=== PATIENT | female | born 1975 | race Two or more races ===

== ENCOUNTER → 2017-07-20 | Outpatient (CLI) | payer MEDICARE, BC ==
[2017-07-20 13:30] LABS: BASO % 0.7 % (0.0-1.0); EOS # 0.1 10^3/uL (0.0-0.50); EOS % 1.6 % (0.0-3.0); IMMATURE GRANULOCYTE % 0.2 % (0-0); LYMPH # 1.7 10^3/uL (1.5-4.5); LYMPH % 30.2 % (24.0-44.0); MEAN CORPUSCULAR HEMOGLOBIN 26.7 pg (27.0-33.0); MEAN CORPUSCULAR VOLUME 85.8 fl (80.0-96.0); MONO # 0.3 10^3/uL (0.0-0.8); MONO % 5.7 % (0.0-5.0); NEUTROPHILS # 3.4 10^3/uL (1.8-7.7); NEUTROPHILS % 61.6 % (36.0-66.0); PLATELET COUNT, AUTOMATED 236 10^3/uL (150-450); RED CELL DISTRIBUTION WIDTH 16.2 % (11.5-14.5); WHITE BLOOD COUNT 5.6 10^3/uL (4.0-10.0)
[2017-07-20 13:56] LABS: ALBUMIN 4.1 GM/DL (3.2-5.2); ALBUMIN/GLOBULIN RATIO 1.37 (1.00-1.93); ALKALINE PHOSPHATASE 72 U/L (45-117); ALT/SGPT 14 U/L (12-78); ANION GAP 8 MEQ/L (8-16); AST/SGOT 11 U/L (7-37); BILIRUBIN,TOTAL 0.3 MG/DL (0.2-1.0); BLOOD UREA NITROGEN 16 MG/DL (7-18); CALCIUM LEVEL 8.2 MG/DL (8.5-10.1); CARBON DIOXIDE LEVEL 23 MEQ/L (21-32); CHLORIDE LEVEL 118 MEQ/L (98-107); CHOLESTEROL LEVEL 189 MG/DL (<200); CREATININE FOR GFR 0.96 MG/DL (0.55-1.02); GLOMERULAR FILTRATION RATE > 60.0 (>58); GLUCOSE, FASTING 107 MG/DL (70-105); POTASSIUM SERUM 3.7 MEQ/L (3.5-5.1); SODIUM LEVEL 149 MEQ/L (136-145); TOTAL PROTEIN 7.1 GM/DL (6.4-8.2); TRIGLYCERIDES LEVEL 114 MG/DL (<150)
== END ==
LOC: M LAB 12:43
DX: Z86.2 Personal history of diseases of the blood and blood-forming organs and certain disorders involving the immune mechanism (principal); E78.00 Pure hypercholesterolemia, unspecified
CPT/HCPCS: 73010

== ENCOUNTER → 2017-08-01 | Outpatient (CLI) | payer MEDICARE, BC ==
[2017-08-01 13:33] LABS: HEMATOCRIT 36.5 % (36.0-47.0); HEMOGLOBIN 11.4 g/dl (12.0-16.0); MEAN CORPUSCULAR HGB CONC 31.2 g/dl (32.0-36.5); MEAN CORPUSCULAR VOLUME 86.5 fl (80.0-96.0); PLATELET COUNT, AUTOMATED 201 10^3/uL (150-450); RED BLOOD COUNT 4.22 10^6/uL (4.00-5.40); RED CELL DISTRIBUTION WIDTH 16.1 % (11.5-14.5); WHITE BLOOD COUNT 6.8 10^3/uL (4.0-10.0)
[2017-08-01 13:39] LABS: RETIC HEMOGLOBIN EQUIVALENT 34.7 pg (24-36); RETICULOCYTE # 64.9 10^9/L (17-77); RETICULOCYTE % 1.6 % (0.5-1.5)
[2017-08-01 14:33] LABS: CALCIUM LEVEL 8.5 MG/DL (8.5-10.1); FERRITIN 18 NG/ML (8-252); IRON (FE) 34 UG/DL (50-170); MAGNESIUM LEVEL 2.3 MG/DL (1.8-2.4); PERCENT SATURATION 10.1 % (13.2-45.0); PHOSPHORUS LEVEL 3.9 MG/DL (2.5-4.9); TOTAL IRON BINDING CAPACITY 338 UG/DL (250-450)
[2017-08-02 08:07] LABS: TRANSFERRIN 261 mg/dL (200-370)
== END ==
LOC: M LAB 12:58
DX: E61.1 Iron deficiency (principal)
CPT/HCPCS: 82310

== ENCOUNTER → 2017-08-31 | Outpatient (CLI) | payer MEDICARE, BC | LOC: M PAIN 13:15 | DX: G89.29 Other chronic pain (principal); M54.5 Low back pain; M79.1 Myalgia; K21.9 Gastro-esophageal reflux disease without esophagitis; J44.9 Chronic obstructive pulmonary disease, unspecified; G43.909 Migraine, unspecified, not intractable, without status migrainosus; Z79.899 Other long term (current) drug therapy; Z88.5 Allergy status to narcotic agent; Z88.8 Allergy status to other drugs, medicaments and biological substances | CPT/HCPCS: G0463 ==

== ENCOUNTER → 2017-09-05 | Outpatient (CLI) | payer MEDICARE, BC ==
[~2017-09-05] MED LIST: BUPIVACAINE HCL 0.25% 30 ML VIAL As Ordered; ISOVUE-M 300 61% 15ML VIAL (Q9967) As Ordered; LIDOCAINE 1% SDV INJ 30 ML VIAL As Ordered; ONDANSETRON 4 MG ORAL DISINTEGRATING TAB (S0181) As Ordered; TRIAMCINOLONE ACETONIDE SUSP 40 MG/ML VIAL (J3301) As Ordered; diazePAM 5 MG TAB As Ordered; diphenhydrAMINE 25 MG CAP As Ordered; oxyCODONE 5MG TAB As Ordered
== END ==
LOC: M PAIN 12:45
DX: M46.08 Spinal enthesopathy, sacral and sacrococcygeal region (principal); M51.37 Other intervertebral disc degeneration, lumbosacral region; M54.5 Low back pain; K21.9 Gastro-esophageal reflux disease without esophagitis; J44.9 Chronic obstructive pulmonary disease, unspecified; G43.909 Migraine, unspecified, not intractable, without status migrainosus; Z79.899 Other long term (current) drug therapy; Z88.5 Allergy status to narcotic agent; Z88.8 Allergy status to other drugs, medicaments and biological substances
CPT/HCPCS: J3301

== ENCOUNTER → 2017-09-06 | Outpatient (CLI) | payer MEDICARE, BC | LOC: M SLEEP 19:54 | DX: R40.0 Somnolence (principal); R06.83 Snoring | CPT/HCPCS: 95810 ==

== ENCOUNTER → 2017-09-14 | Outpatient (REF) | payer MEDICARE, BC ==
[2017-09-14 13:21] LABS: CREATININE FOR GFR 0.93 MG/DL (0.55-1.30); GLOMERULAR FILTRATION RATE > 60.0 (>58)
[2017-09-14 13:21] LABS: BLOOD UREA NITROGEN 14 MG/DL (7-18)
== END ==
LOC: M LABNEURO 09:47
DX: G43.909 Migraine, unspecified, not intractable, without status migrainosus (principal)
CPT/HCPCS: 82565

== ENCOUNTER → 2017-09-26 | Outpatient (CLI) | payer MEDICARE, BC | LOC: M PAIN 14:50 | DX: M46.08 Spinal enthesopathy, sacral and sacrococcygeal region (principal); M51.26 Other intervertebral disc displacement, lumbar region; M79.1 Myalgia; K21.9 Gastro-esophageal reflux disease without esophagitis; J44.9 Chronic obstructive pulmonary disease, unspecified; Z79.899 Other long term (current) drug therapy; Z88.8 Allergy status to other drugs, medicaments and biological substances | CPT/HCPCS: G0463 ==

== ENCOUNTER → 2017-10-10 | Outpatient (CLI) | payer MEDICARE, BC ==
[~2017-10-10] MED LIST changes: -ONDANSETRON 4 MG ORAL DISINTEGRATING TAB (S0181) As Ordered; -diphenhydrAMINE 25 MG CAP As Ordered
== END ==
LOC: M PAIN 11:00
DX: G89.29 Other chronic pain (principal); M46.1 Sacroiliitis, not elsewhere classified; E55.9 Vitamin D deficiency, unspecified; K59.00 Constipation, unspecified; G43.909 Migraine, unspecified, not intractable, without status migrainosus; Z79.891 Long term (current) use of opiate analgesic; Z79.899 Other long term (current) drug therapy; Z88.8 Allergy status to other drugs, medicaments and biological substances
CPT/HCPCS: J3301

== ENCOUNTER → 2017-10-22 | Outpatient (REF) | payer MEDICARE, BC | LOC: M SFHCPLAZ 11:32 | DX: J06.9 Acute upper respiratory infection, unspecified (principal) | CPT/HCPCS: 87070 ==

== ENCOUNTER → 2017-10-24 | Outpatient (CLI) | payer MEDICARE, BC | LOC: M PAIN 14:45 | DX: M46.08 Spinal enthesopathy, sacral and sacrococcygeal region (principal); M51.26 Other intervertebral disc displacement, lumbar region; M79.1 Myalgia; K21.9 Gastro-esophageal reflux disease without esophagitis; J44.9 Chronic obstructive pulmonary disease, unspecified; G43.909 Migraine, unspecified, not intractable, without status migrainosus; E66.09 Other obesity due to excess calories; Z68.32 Body mass index [BMI] 32.0-32.9, adult; Z79.899 Other long term (current) drug therapy; Z88.5 Allergy status to narcotic agent; Z88.8 Allergy status to other drugs, medicaments and biological substances | CPT/HCPCS: 82375; G0463 ==

== ENCOUNTER → 2017-11-13 | Outpatient (CLI) | payer MEDICARE, BC | LOC: M PAIN 11:00 | DX: G89.29 Other chronic pain (principal); M47.816 Spondylosis without myelopathy or radiculopathy, lumbar region; M47.817 Spondylosis without myelopathy or radiculopathy, lumbosacral region; K21.9 Gastro-esophageal reflux disease without esophagitis; J44.9 Chronic obstructive pulmonary disease, unspecified; G43.709 Chronic migraine without aura, not intractable, without status migrainosus; E66.9 Obesity, unspecified; Z68.32 Body mass index [BMI] 32.0-32.9, adult; Z79.891 Long term (current) use of opiate analgesic; Z79.899 Other long term (current) drug therapy; Z88.5 Allergy status to narcotic agent; Z88.6 Allergy status to analgesic agent; Z88.8 Allergy status to other drugs, medicaments and biological substances | CPT/HCPCS: J3301 ==

== ENCOUNTER → 2017-11-21 | Outpatient (CLI) | payer MEDICARE, BC | LOC: M PAIN 14:30 | DX: M46.92 Unspecified inflammatory spondylopathy, cervical region (principal); M46.08 Spinal enthesopathy, sacral and sacrococcygeal region; M46.96 Unspecified inflammatory spondylopathy, lumbar region; K21.9 Gastro-esophageal reflux disease without esophagitis; G43.909 Migraine, unspecified, not intractable, without status migrainosus; E66.01 Morbid (severe) obesity due to excess calories; Z68.32 Body mass index [BMI] 32.0-32.9, adult; Z79.891 Long term (current) use of opiate analgesic; Z79.899 Other long term (current) drug therapy; Z88.5 Allergy status to narcotic agent; Z88.8 Allergy status to other drugs, medicaments and biological substances | CPT/HCPCS: G0463 ==

== ENCOUNTER → 2017-11-29 | Outpatient (CLI) | payer MEDICARE, BC | LOC: M PAIN 08:45 | DX: G89.29 Other chronic pain (principal); M47.812 Spondylosis without myelopathy or radiculopathy, cervical region; K21.9 Gastro-esophageal reflux disease without esophagitis; G43.909 Migraine, unspecified, not intractable, without status migrainosus; M19.90 Unspecified osteoarthritis, unspecified site; E66.09 Other obesity due to excess calories; Z68.32 Body mass index [BMI] 32.0-32.9, adult; Z79.891 Long term (current) use of opiate analgesic; Z79.899 Other long term (current) drug therapy; Z88.5 Allergy status to narcotic agent; Z88.8 Allergy status to other drugs, medicaments and biological substances | CPT/HCPCS: J3301 ==

== ENCOUNTER → 2017-12-20 | Outpatient (CLI) | payer MEDICARE, BC | LOC: M PAIN 09:15 | DX: M46.92 Unspecified inflammatory spondylopathy, cervical region (principal); M46.08 Spinal enthesopathy, sacral and sacrococcygeal region; M46.96 Unspecified inflammatory spondylopathy, lumbar region; M54.81 Occipital neuralgia; K21.9 Gastro-esophageal reflux disease without esophagitis; G43.909 Migraine, unspecified, not intractable, without status migrainosus; J44.9 Chronic obstructive pulmonary disease, unspecified; E66.09 Other obesity due to excess calories; Z68.33 Body mass index [BMI] 33.0-33.9, adult; Z79.891 Long term (current) use of opiate analgesic; Z79.899 Other long term (current) drug therapy; Z88.5 Allergy status to narcotic agent; Z88.8 Allergy status to other drugs, medicaments and biological substances | CPT/HCPCS: G0463 ==

== ENCOUNTER → 2017-12-26 | Outpatient (CLI) | payer MEDICARE, BC ==
[~2017-12-26] MED LIST changes: +BUPIVACAINE HCL 0.25% 10 ML VIAL As Ordered; -ISOVUE-M 300 61% 15ML VIAL (Q9967) As Ordered; -LIDOCAINE 1% SDV INJ 30 ML VIAL As Ordered
== END ==
LOC: M PAIN 09:00
DX: G89.29 Other chronic pain (principal); M54.81 Occipital neuralgia; M54.2 Cervicalgia; M79.1 Myalgia; K21.9 Gastro-esophageal reflux disease without esophagitis; G43.909 Migraine, unspecified, not intractable, without status migrainosus; E66.01 Morbid (severe) obesity due to excess calories; Z68.33 Body mass index [BMI] 33.0-33.9, adult; Z79.891 Long term (current) use of opiate analgesic; Z79.899 Other long term (current) drug therapy; Z88.6 Allergy status to analgesic agent; Z88.5 Allergy status to narcotic agent; Z88.8 Allergy status to other drugs, medicaments and biological substances
CPT/HCPCS: J3301

== ENCOUNTER → 2018-01-25 | Outpatient (CLI) | payer MEDICARE, BC | LOC: M PAIN 12:30 | DX: G89.29 Other chronic pain (principal); M79.1 Myalgia; M54.2 Cervicalgia; M25.511 Pain in right shoulder; M25.512 Pain in left shoulder; M54.6 Pain in thoracic spine; M54.5 Low back pain; M53.3 Sacrococcygeal disorders, not elsewhere classified; K21.9 Gastro-esophageal reflux disease without esophagitis; J44.9 Chronic obstructive pulmonary disease, unspecified; G43.909 Migraine, unspecified, not intractable, without status migrainosus; E66.9 Obesity, unspecified; Z68.33 Body mass index [BMI] 33.0-33.9, adult; Z79.891 Long term (current) use of opiate analgesic; Z79.899 Other long term (current) drug therapy; Z88.5 Allergy status to narcotic agent; Z88.8 Allergy status to other drugs, medicaments and biological substances | CPT/HCPCS: J3301 ==

== ENCOUNTER → 2018-01-29 | Outpatient (CLI) | payer MEDICARE, BC ==
[~2018-01-29] MED LIST changes: -BUPIVACAINE HCL 0.25% 10 ML VIAL As Ordered; +ISOVUE-M 300 61% 15ML VIAL (Q9967) As Ordered; +LIDOCAINE 1% SDV INJ 30 ML VIAL As Ordered; +ONDANSETRON 4 MG ORAL DISINTEGRATING TAB (Q0162 PER 1MG) As Ordered; +diphenhydrAMINE 25 MG CAP As Ordered
== END ==
LOC: M PAIN 12:45
DX: G89.29 Other chronic pain (principal); M53.3 Sacrococcygeal disorders, not elsewhere classified; M47.816 Spondylosis without myelopathy or radiculopathy, lumbar region; M46.08 Spinal enthesopathy, sacral and sacrococcygeal region; M46.96 Unspecified inflammatory spondylopathy, lumbar region; K21.9 Gastro-esophageal reflux disease without esophagitis; J44.9 Chronic obstructive pulmonary disease, unspecified; G43.909 Migraine, unspecified, not intractable, without status migrainosus; E66.9 Obesity, unspecified; Z68.34 Body mass index [BMI] 34.0-34.9, adult; Z79.891 Long term (current) use of opiate analgesic; Z79.899 Other long term (current) drug therapy; Z88.5 Allergy status to narcotic agent; Z88.6 Allergy status to analgesic agent; Z88.8 Allergy status to other drugs, medicaments and biological substances
CPT/HCPCS: J3301

== ENCOUNTER → 2018-01-30 | Outpatient (CLI) | payer MEDICARE, BC | LOC: M PAIN 09:45 | DX: M79.1 Myalgia (principal); M53.3 Sacrococcygeal disorders, not elsewhere classified; M46.08 Spinal enthesopathy, sacral and sacrococcygeal region; M46.96 Unspecified inflammatory spondylopathy, lumbar region; K21.9 Gastro-esophageal reflux disease without esophagitis; G43.909 Migraine, unspecified, not intractable, without status migrainosus; E66.01 Morbid (severe) obesity due to excess calories; Z68.34 Body mass index [BMI] 34.0-34.9, adult; Z71.3 Dietary counseling and surveillance; Z79.891 Long term (current) use of opiate analgesic; E27.40 Unspecified adrenocortical insufficiency; Z79.899 Other long term (current) drug therapy; Z88.5 Allergy status to narcotic agent; E83.51 Hypocalcemia; Z88.6 Allergy status to analgesic agent; Z88.8 Allergy status to other drugs, medicaments and biological substances | CPT/HCPCS: G0463 ==

== ENCOUNTER → 2018-02-18 | Outpatient (CLI) | payer MEDICARE, BC ==
[2018-02-18 16:00] LABS: ANION GAP 8 MEQ/L (8-16); BLOOD UREA NITROGEN 12 MG/DL (7-18); CALCIUM LEVEL 8.2 MG/DL (8.5-10.1); CARBON DIOXIDE LEVEL 24 MEQ/L (21-32); CHLORIDE LEVEL 113 MEQ/L (98-107); CREATININE FOR GFR 0.87 MG/DL (0.55-1.30); GLOMERULAR FILTRATION RATE > 60.0 (>58); GLUCOSE, FASTING 99 MG/DL (70-100); POTASSIUM SERUM 3.8 MEQ/L (3.5-5.1); SODIUM LEVEL 145 MEQ/L (136-145)
== END ==
LOC: M LAB 15:00
DX: R79.9 Abnormal finding of blood chemistry, unspecified (principal)
CPT/HCPCS: 80048

== ENCOUNTER → 2018-03-04 | Outpatient (CLI) | payer MEDICARE, BC ==
[2018-03-04 19:30] LABS: BASO % 0.4 % (0.0-1.0); EOS % 0.5 % (0.0-3.0); HEMATOCRIT 42.2 % (36.0-47.0); HEMOGLOBIN 13.8 g/dl (12.0-15.5); IMMATURE GRANULOCYTE % 0.3 % (0-3.0); LYMPH # 1.9 10^3/uL (1.5-4.5); MEAN CORPUSCULAR HEMOGLOBIN 30.1 pg (27.0-33.0); MEAN CORPUSCULAR HGB CONC 32.7 g/dl (32.0-36.5); MEAN CORPUSCULAR VOLUME 92.1 fl (80.0-96.0); MONO # 0.5 10^3/uL (0.0-0.8); MONO % 7.3 % (0.0-5.0); NEUTROPHILS # 4.8 10^3/uL (1.8-7.7); NEUTROPHILS % 65.5 % (36.0-66.0); PLATELET COUNT, AUTOMATED 247 10^3/uL (150-450); RED BLOOD COUNT 4.58 10^6/uL (4.00-5.40); RED CELL DISTRIBUTION WIDTH 13.8 % (11.5-14.5); WHITE BLOOD COUNT 7.4 10^3/uL (4.0-10.0)
[2018-03-04 20:01] LABS: ALBUMIN 3.9 GM/DL (3.2-5.2); ALBUMIN/GLOBULIN RATIO 1.15 (1.00-1.93); ALKALINE PHOSPHATASE 79 U/L (45-117); ALT/SGPT 16 U/L (12-78); ANION GAP 10 MEQ/L (8-16); AST/SGOT 12 U/L (7-37); BILIRUBIN,TOTAL 0.3 MG/DL (0.2-1.0); BLOOD UREA NITROGEN 13 MG/DL (7-18); CALCIUM LEVEL 8.5 MG/DL (8.5-10.1); CARBON DIOXIDE LEVEL 24 MEQ/L (21-32); CHLORIDE LEVEL 112 MEQ/L (98-107); CREATININE FOR GFR 0.98 MG/DL (0.55-1.30); GLOMERULAR FILTRATION RATE > 60.0 (>58); GLUCOSE, FASTING 90 MG/DL (70-100); LIPASE 162 U/L (73-393); POTASSIUM SERUM 3.5 MEQ/L (3.5-5.1); SODIUM LEVEL 146 MEQ/L (136-145); TOTAL PROTEIN 7.3 GM/DL (6.4-8.2)
== END ==
LOC: M LAB 18:17
DX: M51.34 Other intervertebral disc degeneration, thoracic region (principal); R10.11 Right upper quadrant pain
CPT/HCPCS: 72072

== ENCOUNTER → 2018-03-07 | Outpatient (CLI) | payer MEDICARE, BC | LOC: M RAD 06:20 | DX: R10.11 Right upper quadrant pain (principal); K80.20 Calculus of gallbladder without cholecystitis without obstruction | CPT/HCPCS: 76705 ==

== ENCOUNTER → 2018-03-19 | Outpatient (CLI) | payer MEDICARE, BC | LOC: M PAIN 11:30 | DX: M79.1 Myalgia (principal); M53.3 Sacrococcygeal disorders, not elsewhere classified; M46.08 Spinal enthesopathy, sacral and sacrococcygeal region; M46.96 Unspecified inflammatory spondylopathy, lumbar region; K21.9 Gastro-esophageal reflux disease without esophagitis; J44.9 Chronic obstructive pulmonary disease, unspecified; G43.909 Migraine, unspecified, not intractable, without status migrainosus; Z79.891 Long term (current) use of opiate analgesic; Z79.899 Other long term (current) drug therapy; Z88.8 Allergy status to other drugs, medicaments and biological substances; Z88.5 Allergy status to narcotic agent | CPT/HCPCS: G0463 ==

== ENCOUNTER → 2018-03-28 | Outpatient (CLI) | payer MEDICARE, BC ==
[~2018-03-28] MED LIST changes: +BUPIVACAINE HCL 0.25% 10 ML VIAL As Ordered; -ISOVUE-M 300 61% 15ML VIAL (Q9967) As Ordered; -LIDOCAINE 1% SDV INJ 30 ML VIAL As Ordered; -ONDANSETRON 4 MG ORAL DISINTEGRATING TAB (Q0162 PER 1MG) As Ordered; -diphenhydrAMINE 25 MG CAP As Ordered
== END ==
LOC: M PAIN 09:15
DX: G89.29 Other chronic pain (principal); M79.1 Myalgia; E78.5 Hyperlipidemia, unspecified; K59.00 Constipation, unspecified; K21.9 Gastro-esophageal reflux disease without esophagitis; G43.909 Migraine, unspecified, not intractable, without status migrainosus; J44.9 Chronic obstructive pulmonary disease, unspecified; E55.9 Vitamin D deficiency, unspecified; Z79.891 Long term (current) use of opiate analgesic; Z79.899 Other long term (current) drug therapy; Z88.5 Allergy status to narcotic agent; Z88.8 Allergy status to other drugs, medicaments and biological substances
CPT/HCPCS: J3301

== ENCOUNTER → 2018-04-04 | Outpatient (CLI) | payer MEDICARE, BC | LOC: M RAD 09:19 | DX: R10.13 Epigastric pain (principal) | CPT/HCPCS: 78226 ==

== ENCOUNTER → 2018-04-06 | Outpatient (CLI) | payer MEDICARE, BC ==
[2018-04-06 09:18] LABS: ALBUMIN 3.4 GM/DL (3.2-5.2); ALBUMIN/GLOBULIN RATIO 1.21 (1.00-1.93); ALKALINE PHOSPHATASE 64 U/L (45-117); ALT/SGPT 14 U/L (12-78); ANION GAP 5 MEQ/L (8-16); AST/SGOT 6 U/L (7-37); BILIRUBIN,DIRECT < 0.1 MG/DL (0.0-0.2); BILIRUBIN,TOTAL 0.2 MG/DL (0.2-1.0); BLOOD UREA NITROGEN 18 MG/DL (7-18); CALCIUM LEVEL 8.5 MG/DL (8.5-10.1); CARBON DIOXIDE LEVEL 26 MEQ/L (21-32); CHLORIDE LEVEL 115 MEQ/L (98-107); CREATININE FOR GFR 0.81 MG/DL (0.55-1.30); GLOMERULAR FILTRATION RATE > 60.0 (>58); GLUCOSE, FASTING 104 MG/DL (70-100); POTASSIUM SERUM 4.1 MEQ/L (3.5-5.1); SODIUM LEVEL 146 MEQ/L (136-145); TOTAL PROTEIN 6.2 GM/DL (6.4-8.2)
[2018-04-08 10:55] LABS: HIV 1&2 SCREEN CENTAUR NEGATIVE (NEGATIVE)
[2018-04-09 08:06] LABS: ARSENIC 6 ug/L (2-23)
[2018-04-09 08:06] LABS: ADRENOCORTICOTROPHIC HORMONE 2.7 pg/mL (7.2-63.3)
[2018-04-10 00:06] LABS: ARSENIC BLOOD 9 ug/L (2-23); LEAD BLOOD None Detected ug/dL (0-4); MERCURY BLOOD None Detected ug/L (0.0-14.9)
== END ==
LOC: M LAB 08:10
DX: E27.40 Unspecified adrenocortical insufficiency (principal); R17 Unspecified jaundice
CPT/HCPCS: 82248

== ENCOUNTER → 2018-04-08 | Outpatient (CLI) | payer MEDICARE, BC ==
[~2018-04-08] MED LIST changes: -BUPIVACAINE HCL 0.25% 10 ML VIAL As Ordered; -BUPIVACAINE HCL 0.25% 30 ML VIAL As Ordered; +GASTROGRAFIN SOLUTION 30ML (Q9963) As Ordered; +ISOVUE-370 76% 100ML VIAL (Q9967) As Ordered; -TRIAMCINOLONE ACETONIDE SUSP 40 MG/ML VIAL (J3301) As Ordered; -diazePAM 5 MG TAB As Ordered; -oxyCODONE 5MG TAB As Ordered
== END ==
LOC: M RAD 14:17
DX: E27.40 Unspecified adrenocortical insufficiency (principal)
CPT/HCPCS: Q9963

== ENCOUNTER → 2018-04-19 | Outpatient (REF) | payer MEDICARE, BC | LOC: M SFHCPLAZ 11:52 | DX: Z01.419 Encounter for gynecological examination (general) (routine) without abnormal findings (principal) | CPT/HCPCS: G0123 ==

== ENCOUNTER → 2018-04-24 | Outpatient (CLI) | payer MEDICARE, BC ==
[2018-04-24 11:58] LABS: CORTISOL AM 1.7 UG/DL (4.3-22.4)
[2018-04-26 00:08] LABS: ADRENOCORTICOTROPHIC HORMONE 3.5 pg/mL (7.2-63.3)
== END ==
LOC: M LAB 10:02
DX: E27.40 Unspecified adrenocortical insufficiency (principal); Z12.31 Encounter for screening mammogram for malignant neoplasm of breast
CPT/HCPCS: 82533

== ENCOUNTER → 2018-04-24 | Outpatient (CLI) | payer MEDICARE, BC | LOC: M WHC 09:21 | DX: Z12.31 Encounter for screening mammogram for malignant neoplasm of breast (principal) ==

== ENCOUNTER 2018-04-25 06:28 | Outpatient (CLI) | payer MEDICARE ==
[2018-04-25] MEDS: COSYNTROPIN 0.25 MG/ML VIAL (J0834 PER 0.25MG) IV (07:14)
[2018-04-25 10:32] LABS: CORTISOL 30 MINUTES 13.3 UG/DL
[2018-04-25 10:33] LABS: CORTISOL BASELINE 2.4 UG/DL (4.3-22.4)
[2018-04-25 11:39] LABS: CORTISOL 60 MINUTES 16.9 UG/DL
== END 2018-04-25 10:00 | disposition home or self-care (01) ==
LOC: M INFU 06:28
DX: E27.40 Unspecified adrenocortical insufficiency (principal); Z88.8 Allergy status to other drugs, medicaments and biological substances; Z88.5 Allergy status to narcotic agent
CPT/HCPCS: 36415

== ENCOUNTER → 2018-04-29 | Outpatient (REF) | payer MEDICARE, BC | LOC: M SFHCPLAZ 11:01 | DX: K14.8 Other diseases of tongue (principal) | CPT/HCPCS: 87070 ==

== ENCOUNTER → 2018-05-08 | Outpatient (CLI) | payer MEDICARE ==
[2018-05-08 16:19] LABS: FREE T3 2.9 PG/ML (2.2-4.0); FREE T4 1.01 NG/DL (0.76-1.46)
[2018-05-08 16:22] LABS: FOLLICLE STIMULATING HORMONE 8.7 mIU/mL; LUTEINIZING HORMONE 5.5 mIU/mL
== END ==
LOC: M LAB 15:03
DX: E27.49 Other adrenocortical insufficiency (principal)
CPT/HCPCS: 83001

== ENCOUNTER → 2018-05-20 | Outpatient (CLI) | payer MEDICARE ==
[~2018-05-20] MED LIST changes: -GASTROGRAFIN SOLUTION 30ML (Q9963) As Ordered; -ISOVUE-370 76% 100ML VIAL (Q9967) As Ordered; +PROHANCE 279.3MG/ML 15ML VIAL (A9576) As Ordered; +PROHANCE 279.3MG/ML 5ML VIAL (A9576) As Ordered
== END ==
LOC: M RAD 17:12
DX: R91.8 Other nonspecific abnormal finding of lung field (principal); E27.49 Other adrenocortical insufficiency
CPT/HCPCS: A9576

== ENCOUNTER → 2018-05-22 | Outpatient (CLI) | payer MEDICARE, BC | LOC: M PAIN 13:00 | DX: M79.18 Myalgia, other site (principal); M53.3 Sacrococcygeal disorders, not elsewhere classified; M46.08 Spinal enthesopathy, sacral and sacrococcygeal region; M46.96 Unspecified inflammatory spondylopathy, lumbar region; K21.9 Gastro-esophageal reflux disease without esophagitis; J44.9 Chronic obstructive pulmonary disease, unspecified; G43.909 Migraine, unspecified, not intractable, without status migrainosus; E78.5 Hyperlipidemia, unspecified; G25.81 Restless legs syndrome; Z79.52 Long term (current) use of systemic steroids; Z79.891 Long term (current) use of opiate analgesic; Z79.899 Other long term (current) drug therapy; Z88.5 Allergy status to narcotic agent; Z88.6 Allergy status to analgesic agent; Z88.8 Allergy status to other drugs, medicaments and biological substances | CPT/HCPCS: G0463 ==

== ENCOUNTER 2018-07-02 13:39 | Outpatient (RCR) | payer MEDICARE | END 2018-07-22 | LOC: M PT 13:39 | PROVIDERS: ATTEND Orthopaedic Surgery | DX: Z98.890 Other specified postprocedural states (principal) | CPT/HCPCS: 97140; 97162; G8978; G8979 ==

== ENCOUNTER → 2018-07-26 | Outpatient (CLI) | payer MEDICARE ==
[2018-07-26 16:01] LABS: BASO % 0.4 % (0.0-1.0); EOS # 0.1 10^3/uL (0.0-0.50); EOS % 1.3 % (0.0-3.0); HEMATOCRIT 38.1 % (36.0-47.0); HEMOGLOBIN 12.2 g/dl (12.0-15.5); LYMPH # 2.2 10^3/uL (1.5-4.5); LYMPH % 41.8 % (24.0-44.0); MEAN CORPUSCULAR VOLUME 90.5 fl (80.0-96.0); MONO # 0.3 10^3/uL (0.0-0.8); MONO % 6.3 % (0.0-5.0); NEUTROPHILS # 2.6 10^3/uL (1.8-7.7); PLATELET COUNT, AUTOMATED 210 10^3/uL (150-450); RED BLOOD COUNT 4.21 10^6/uL (4.00-5.40); WHITE BLOOD COUNT 5.2 10^3/uL (4.0-10.0)
[2018-07-26 16:22] LABS: ALBUMIN 3.6 GM/DL (3.2-5.2); ALT/SGPT 13 U/L (12-78); BILIRUBIN,TOTAL 0.3 MG/DL (0.2-1.0); BLOOD UREA NITROGEN 21 MG/DL (7-18); CARBON DIOXIDE LEVEL 26 MEQ/L (21-32); CHLORIDE LEVEL 113 MEQ/L (98-107); CHOLESTEROL LEVEL 168 MG/DL (<200); CHOLESTEROL RISK RATIO 3.169 (<5); CREATININE FOR GFR 0.86 MG/DL (0.55-1.30); GLOMERULAR FILTRATION RATE > 60.0 (>58); GLUCOSE, FASTING 88 MG/DL (70-100); HDL CHOLESTEROL 53 MG/DL (>40); IRON (FE) 111 UG/DL (50-170); LDL CHOLESTEROL 96 MG/DL (<100); NON-HDL-C 115 MG/DL; POTASSIUM SERUM 3.9 MEQ/L (3.5-5.1); SODIUM LEVEL 146 MEQ/L (136-145); TOTAL PROTEIN 6.5 GM/DL (6.4-8.2); TRIGLYCERIDES LEVEL 93 MG/DL (<150)
[2018-07-26 16:30] LABS: TOTAL 25(OH) VITAMIN D 30.1 NG/ML (30.0-100.0)
--- NOTE | 2018-07-26 17:05 | REP ---
HISTORY: Pain and decreased range of motion. COMPARISON: None. There is mild AC joint DJD with hypertrophic change. The acromion process is a slight type 3. There is patchy and linear T2 hypersignal seen throughout the supraspinatus tendon, a portion of which appears to be full thickness. There is no bela evidence of supraspinatus muscle belly atrophy or retraction. Normal appearing low signal is seen throughout the subscapularis, inferior supraspinatus, and teres minor tendons. The biceps tendon is seen within the bicipital groove. There is no glenohumeral joint effusion, however, there is a small amount of fluid in the subcoracoid recess. There is mild coracohumeral and coracoacromial ligamentous thickening. IMPRESSION: AC joint DJD and slight type 3 acromion process seen in conjunction with mild coracohumeral and coracoacromial ligamentous thickening suggesting the clinical diagnosis of impingement syndrome. There is supraspinatus tendonitis/tendinopathy, as described above, and possibly with a partial full thickness tear. Other findings as described above. Electronically Signed by Mike Ortiz DO 07/29/2018 05:25 P
== END ==
LOC: M RAD 12:16
PROVIDERS: ATTEND Student in an Organized Health Care Education/Training Program
DX: M25.511 Pain in right shoulder (principal); Z86.2 Personal history of diseases of the blood and blood-forming organs and certain disorders involving the immune mechanism; G89.4 Chronic pain syndrome; E55.9 Vitamin D deficiency, unspecified; E27.40 Unspecified adrenocortical insufficiency; E78.5 Hyperlipidemia, unspecified; E61.1 Iron deficiency

== ENCOUNTER → 2018-07-31 | Outpatient (CLI) | payer MEDICARE ==
[~2018-07-31] MED LIST changes: +BUPIVACAINE HCL 0.25% 10 ML VIAL As Ordered ONE; +BUPIVACAINE HCL 0.25% 30 ML VIAL As Ordered ONE; -PROHANCE 279.3MG/ML 15ML VIAL (A9576) As Ordered; -PROHANCE 279.3MG/ML 5ML VIAL (A9576) As Ordered; +diazePAM 5 MG TAB As Ordered ONE; +oxyCODONE 5MG TAB As Ordered ONE
--- NOTE | 2018-08-19 01:12 | ECWPNPC ---
PATIENT NAME: DEEDEE SHEARER : 1975 GENDER: FEMALE VISIT DATE: 07/31/2018 DISCHARGE DATE: 07/31/18 1159 VISIT LOCKED DATE TIME: PHYSICIAN: DAVID NINO MD RESOURCE: DAVID NINO MD REASON FOR APPOINTMENT 1. TPI (NO STEROIDS) HISTORY OF PRESENT ILLNESS HISTORY OF PRESENT ILLNESS: PAIN THE PATIENT DESCRIBES THE PAIN... FALL RISK SCREENING: SCREENING :NO FALLS IN THE PAST YEAR CURRENT MEDICATIONS TAKING GABAPENTIN 300 MG CAPSULE 1 CAP ORALLY 2 CAPSULES IN THE MORNING AND 2 CAPSULES IN THE EVENING;, NOTES: 07/30/182099 TAKING URSODIOL 300 MG CAPSULE ORALLY , NOTES: FEW DAYS AGO TAKING E-Z SPACER 1 SPACER ICD10: J44.9 DIRECTED WITH PRN ALBUTEROL INHALER TAKING OXYCODONE HCL 10 MG TABLET 1 TABLET ORALLY Q 6-8 HRS PRN PAIN MDD=3, NOTES: 07/30/182099 TAKING NYSTATIN 099193 UNIT/ML SUSPENSION 4 ML MOUTH/THROAT FOUR TIMES A DAY; SWISH AND SPIT OUT, NOTES: FEW DAYS AGO TAKING FERROUS SULFATE 325 MG CAPSULE 1 TABLET ORALLY DAILY WITH ORANGE JUICE, NOTES: FEW DAYS AGO TAKING TOPIRAMATE 200 MG TABLET 1 TABLET ORALLY ONCE A DAY, NOTES: 07/30/182099 TAKING PANTOPRAZOLE SODIUM 40 MG TABLET DELAYED RELEASE 1 TABLET ORALLY BID, NOTES: 07/30/182099 TAKING VERAPAMIL HCL ER 180 MG TABLET EXTENDED RELEASE 1 TABLET ORALLY TWICE A DAY, NOTES: 07/30/182099 TAKING PROMETHAZINE HCL 25 MG TABLET 1 TABLET NEEDED ORALLY EVERY 12 HRS PRN NAUSEA, NOTES: FEW DAYS AGO TAKING ATORVASTATIN CALCIUM 40 MG TABLET 1 TABLET ORALLY ONCE A DAY, NOTES: 07/30/18 09 TAKING TIZANIDINE HCL 4 MG TABLET 1 TABLET NEEDED ORALLY TWICE A DAY; DO NOT TAKE IF TAKING BACLOFEN SAME DAY., NOTES: WEEKS AGO TAKING ALBUTEROL SULFATE HFA 108 (90 BASE) MCG/ACT AEROSOL SOLUTION 2 PUFFS NEEDED INHALATION EVERY 4 HRS PRN SOB/WHEEZING, NOTES: FEW DAYS AGO TAKING MELOXICAM 15 MG TABLET 1 TABLET ORALLY ONCE A DAY PRN PAIN, NOTES: 07/30/182099 TAKING SEROQUEL 50 MG TABLET 1 TABLET ORALLY ONCE A DAY, NOTES: WEEKS AGO TAKING AMITIZA 24 MCG CAPSULE 1 CAPSULE WITH FOOD ORALLY TWICE A DAY PRN CONSTIPATION, NOTES: BOTH ALTERNATES TAKING MAGNESIUM CHLORIDE - POWDER 2 [id number] (4 TSPS) ORALLY TWICE DAILY, NOTES: FEW DAYS AGO TAKING BACLOFEN 10 MG TABLET 2 TABLET WITH FOOD OR MILK ORALLY 2 TABS AT BED TIME, NOTES: WEEKS AGO TAKING AMITIZA 8 MCG CAPSULE 1 CAPSULE WITH FOOD ORALLY PRN TWICE A DAY, NOTES: BOTH DOSES ALTERNATES TAKING VITAMIN C ER 1000 MG TABLET EXTENDED RELEASE 1 TABLET ORALLY ONCE A DAY, NOTES: NEVER TAKEN TAKING FLONASE 50 MCG/ACT SUSPENSION 1 SPRAY IN EACH NOSTRIL NASALLY ONCE A DAY, NOTES: FEW DAYS AGO TAKING VITAMIN D3 2000 UNIT CAPSULE 1 CAPSULE ORALLY ONCE A DAY, NOTES: 07/30/18 0900 MEDICATION LIST REVIEWED AND RECONCILED WITH THE PATIENT PAST MEDICAL HISTORY GERD DEGENERATIVE DISC DISEASE HERNIATED DISCS BULGING DISCS ARTHRITIS IN SPINE COPD PER PATIENT CHRONIC MIGRAINES R ANKLE BROKEN L BROKEN FOOT R KNEE SCAR TISSUE HX OF BROKEN COCCYX OBESITY PCOS, HIRSUTISM HYPERLIPIDEMIA RESTLESS LEGS SYNDROME MEMORY ISSUES IRON DEFICIENCY ANEMIA CHRONIC FATIGUE HEAVY MENSTRUAL PERIODS IRREGULAR MENSTRUAL PERIODS 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 ONE SISTER WITH STAGE II LUNG CANCER, ONE STAGE IV ?KIDNEY OR UTERINE CANCER, ONE SISTER WITH A STROKE. SOCIAL HISTORY GENERAL: TOBACCO USE ARE YOU A:NONSMOKER NEVER SMOKER ALCOHOL SCREENING DID YOU HAVE A DRINK CONTAINING ALCOHOL IN THE PAST YEAR?NO POINTS0 INTERPRETATIONNEGATIVE RECREATIONAL DRUG USE DRUG USE?NO CAFFEINE CAFFEINE USE?NO SEXUAL HX HAD SEX IN THE LAST 12 MONTHS (VAGINAL, ORAL, OR ANAL)?NO HAVE YOU EVER HAD AN STD?NO HIV / HEP-C SCREENING HIV TEST OFFERED TO PATIENT:YES DATE OFFERED:08/01/2017 TEST ACCEPTED:NO HEP-C TEST OFFERED TO PATIENT:NO REASON:PATIENT DECLINED BROCHURE PROVIDED TO PATIENTYES EVANGELICAL [id number] NONE OTHER LANGUAGE LANGUAGES SPOKEN:CENTRAL AFRICAN EDUCATION LEVEL OF EDUCATION:COLLEGE LEARNING BARRIERS / SPECIAL NEEDS BARRIERS TO LEARNING?NO HEARING IMPAIRED?NO VISION IMPAIRED?NO COGNITIVELY IMPAIRED?NO READINESS TO LEARN?NO LEARNING PREFERENCES?YES :DEMONSTRATION/VERBAL INSTRUCTION LEARNING CAPABILITIES PRESENT?NO EMOTIONAL BARRIERS?NO SPECIAL DEVICES?NO SOIL TESTER NEEDED?NO DOMESTIC VIOLENCE DO YOU FEEL SAFE IN YOUR ENVIRONMENT?YES OCCUPATION: UNEMPLOYED. DIET: NO MSG ,GLUTEN FREE. EXERCISE: NONE. MARITAL STATUS: SINGLE. OTHERS AT HOME: SIBLING, IN-LAW(S). PAIN CLINIC PFS, CLERGY, PUBLIC HEALTH REFERRALS HAS THE PATIENT BEEN EDUCATED REGARDING HIS/HER PLAN OF CARE?YES HAS THE PATIENT BEEN EDUCATED REGARDING PAIN, THE RISK FOR PAIN, THE IMPORTANCE OF EFFECTIVE PAIN MANAGEMENT, AND THE PAIN ASSESSMENT PROCESS?YES ADVANCE DIRECTIVE ADVANCE DIRECTIVE DISCUSSED WITH PATIENT:YES PT DECLINED INFROMATION ON HCP REVIEWED WITH PATIENT 07/31/18 4357 JS. HOSPITALIZATION/MAJOR DIAGNOSTIC PROCEDURE ABOVE SURGERIES REVIEW OF SYSTEMS REVIEWED BY: PROVIDER: . CONSTITUTIONAL: ANY CHANGE IN YOUR MEDICAL CONDITION? YES, STATES DOCTORS ARE TRYING TO FIGURE OUT WHY SHE PASSES OUT AFTER EATING . CHILLS NO . FEVER NO . INFECTION: DO YOU HAVE NEW INFECTIONS? NO . DO YOU HAVE HISTORY OF MRSA? NO . MUSCULOSKELETAL: ANY NEW PATTERNS OF PAIN OR NUMBNESS? YES, STATES NEW PAIN AND NUMBNESS TO RIGHT ARM . GASTROENTEROLOGY: ANY NEW CHANGE IN BOWEL CONTROL? NO . GENITOURINARY: ANY NEW CHANGE IN BLADDER CONTROL? NO . IS THERE A CHANCE YOU COULD BE ? NO . HEMATOLOGY/LYMPH: DO YOU TAKE ANY BLOOD THINNERS? (FOR EXAMPLE- COUMADIN, PLAVIX, AGGRENOX, PLATEL, PRADAXA, OR XARELTO) NO . WHEN WAS YOUR LAST DOSE? DATE: TIME: . NEUROLOGY: HAVE YOU FALLEN IN THE PAST 6 MONTHS? NO . ANY NEW EXTREMITY NUMBNESS OR WEAKNESS? YES, STATES RIGHT ARM NUMBNESS AND WEAKNESS . CARDIOLOGY: DO YOU HAVE A PACEMAKER OR DEFIBRILLATOR? NO . RESPIRATORY: HAVE YOU BEEN SICK IN THE PAST WEEK? NO . FEVER NO . FLU LIKE SYMPTOMS? NO . COUGH NO . INTEGUMENTARY: DO YOU HAVE ANY RASHES OR OPEN SORES? NO . ALLERGIC/IMMUNO: ARE YOU ALLERGIC TO SHELLFISH OR IV DYE? NO . ANY NEW ALLERGIES? NO . PSYCHIATRIC: DO YOU HAVE THOUGHTS OF HURTING YOURSELF OR SOMEONE ELSE? NO . ARE YOU ABUSED, NEGLECTED, OR IN AN UNSAFE ENVIRONMENT? NO . ENDOCRINOLOGY: ARE YOU DIABETIC? NO . OTHER: DO YOU NEED ANY PRESCRIPTIONS? NO . IF YES, PLEASE LIST: ____ . ANY NEW PROBLEMS WITH YOUR MEDICATIONS? NO . WHEN DID YOU LAST EAT? ____07/30/18 NOON . WHEN DID YOU LAST DRINK? ____07/30/18 MIDNIGHT . WHAT DID YOU LAST DRINK? ____WATER . NAME OF PERSON DRIVING YOU HOME? ____MARGARET GARZA . DO YOU HAVE ANY OTHER QUESTIONS OR CONCERNS NO . VITAL SIGNS WT 189.4 LBS, HT 60 IN, BMI 36.99 INDEX, BP 119/71 MM HG, HR 68 /MIN, RR 18 /MIN, TEMP 97.7 F, OXYGEN SAT % 97%, SAFE IN ENV? (Y/N) YES, NA INITIALS AW 0934, REVIEWED BY: JS. ASSESSMENTS MYALGIA, OTHER SITE - M79.18 (PRIMARY) PROCEDURES PN TRIGGER POINT INJECTION NO STEROIDS DATE OF PROCEDURE 07/31/2018 : PRE PROCEDURE DIAGNOSIS 1. MYALGIA 2. PAIN AT BILATERAL NECK AREA, BILATERAL SHOULDER AREA, RIGHT THORACIC AREA, AND RIGHT LOW BACK AREA POST PROCEDURE DIAGNOSIS 1. MYALGIA 2. PAIN AT BILATERAL NECK AREA, BILATERAL SHOULDER AREA, RIGHT THORACIC AREA, AND RIGHT LOW BACK AREA PROCEDURE TRIGGER POINT INJECTION AT BILATERAL NECK AREA, BILATERAL SHOULDER AREA, RIGHT THORACIC AREA, AND RIGHT LOW BACK AREA SURGEON DR. DAVID NINO PAPER SALES REPRESENTATIVE NONE ANESTHESIA LOCAL PRE PROCEDURE NOTE 43 YEAR-OLD PATIENT WITH HISTORY OF CHRONIC PAIN AT RIGHT AND LEFT NECK AREA, RIGHT AND LEFT SHOULDER AREA, RIGHT THORACIC AREA, AND RIGHT LOW BACK AREA. I EVALUATED THE PATIENT AND REVIEWED THE CHART. THERE IS EVIDENCE OF BANDS OF TISSUE WITH RESTRICTION OF MOVEMENT AND PRESENCE OF TRIGGER POINT AT THE AFFECTED AREA. I WENT OVER THE RISKS, ALTERNATIVES, AND BENEFITS ASSOCIATED WITH THIS PROCEDURE. THE PATIENT WOULD LIKE TO PROCEED AND GAVE CONSENT TO PERFORM THE PROCEDURE. THE PATIENT DENIES UNEXPLAINABLE WEIGHT LOSS, FEVER, CHILLS, OR NEW CHANGES IN URINARY OR BOWEL CONTROL. DESCRIPTION OF PROCEDURE THE PATIENT WAS BROUGHT TO THE PROCEDURE ROOM AND PLACED IN THE SITTING POSITION. THE AREA WAS CLEANED WITH ALCOHOL. THE PROCEDURE WAS DONE USING ASEPTIC STERILE TECHNIQUES. I CHECKED LATERALITY AND THE LEVEL WHERE THE PROCEDURE WAS GOING TO BE PERFORMED WITH THE PATIENT AND THE SUPPORTING STAFF AT THE MOMENT OF THE TIME OUT IN THE PROCEDURE ROOM. USING A 25-GAUGE NEEDLE, TRIGGER POINTS WERE INJECTED WITH A TOTAL OF 40 ML OF BUPIVACAINE 0.25%. AGREED WITH THE PATIENT THE PROCEDURE WAS DONE WITHOUT STEROIDS. THERE WAS NO EVIDENCE OF BLOOD, PARESTHESIA OR CEREBROSPINAL FLUID DURING THE PROCEDURE. THE PATIENT WAS SENT TO THE RECOVERY ROOM. THE PATIENT WAS MOVING THE EXTREMITIES AND DOING WELL. THERE WAS NO COMPLICATION DURING THE PROCEDURE. POST PROCEDURE NOTE THE PATIENT WILL BE SEEN IN A FOLLOW UP IN THE NEXT FEW WEEKS. INSTRUCTIONS WERE GIVEN, QUESTIONS WERE ANSWERED, AND THE PATIENT EXPRESSED UNDERSTANDING AND AGREED WITH THE PLAN. I, CESARIO BREWER, DOCUMENTED THE ABOVE INFORMATION ACTING A SCRIBE FOR DR. NINO. I HAVE REVIEWED THE ABOVE DOCUMENT, WRITTEN BY CESARIO HAWLEYIBYamile AND I VERIFY THAT IT IS ACCURATE. PROCEDURE CODES 04419 INJECT TRIGGER POINTS 3/> DISPOSITION & COMMUNICATION FOLLOW UP 3 WEEKS ELECTRONICALLY SIGNED BY DAVID NINO MD, MD ON 08/18/2018 AT 04:10 PM EST DISCLAIMER : THIS IS A VISIT SUMMARY EXTRACTED FROM THE [employer] CHART. IT IS NOT A COPY OF THE [employer] PROGRESS NOTE. MTDNicholas
== END ==
LOC: M PAIN 09:45
PROVIDERS: ATTEND Anesthesiology
DX: M79.18 Myalgia, other site (principal); M54.2 Cervicalgia; M25.511 Pain in right shoulder; M25.512 Pain in left shoulder; M54.6 Pain in thoracic spine; M54.5 Low back pain; K21.9 Gastro-esophageal reflux disease without esophagitis; J44.9 Chronic obstructive pulmonary disease, unspecified; G43.909 Migraine, unspecified, not intractable, without status migrainosus; E78.5 Hyperlipidemia, unspecified; G25.81 Restless legs syndrome; E66.01 Morbid (severe) obesity due to excess calories; Z68.36 Body mass index [BMI] 36.0-36.9, adult; Z79.891 Long term (current) use of opiate analgesic; Z79.899 Other long term (current) drug therapy; Z88.5 Allergy status to narcotic agent; Z88.8 Allergy status to other drugs, medicaments and biological substances

== ENCOUNTER → 2018-08-09 | Outpatient (CLI) | payer MEDICARE ==
--- NOTE | 2018-08-09 19:40 | REP ---
MRI right scapula without contrast: History: Incomplete rotator cuff tear. Rupture of right shoulder. Evaluate for muscle tear and stress fracture. Comparison MRI study of the right shoulder was from 2 weeks ago, July 26, 2018. This was read as showing a type 3 acromion process along with supraspinatus tendinosis with possible cuff tear. No comparison radiographs. Technique: Axial, oblique coronal, and oblique sagittal imaging planes are utilized. T1 and T2-weighted scans were obtained in the usual fashion with and without fat saturation. MRI findings: Cortical and medullary bone signal intensity are normal throughout the scapula on today's study. No scapulothoracic mass or cyst is seen. T2-weighted scans show no evidence to suggest stress fracture or marrow edema. No renee scapular fluid collection is appreciated. The adjacent musculature shows normal signal intensity on T1 and T2-weighted scans. Mild AC joint hypertrophy is again seen. There is some subacromial subdeltoid bursal fluid visible on STIR images. Impression: No scapular stress fracture or scapulothoracic lesion seen. No muscle tear is appreciated. Electronically Signed by Yasmany Subramanian MD 08/09/2018 08:08 P
== END ==
LOC: M PLARAD 14:47
PROVIDERS: ATTEND Orthopaedic Surgery
DX: M75.111 Incomplete rotator cuff tear or rupture of right shoulder, not specified as traumatic (principal)

== ENCOUNTER → 2018-08-29 | Outpatient (CLI) | payer MEDICARE ==
[~2018-08-29] MED LIST changes: +ATOR40TA75 PO; -BUPIVACAINE HCL 0.25% 10 ML VIAL As Ordered ONE; -BUPIVACAINE HCL 0.25% 30 ML VIAL As Ordered ONE; +FERR325T3 PO; +FLUTISP; +GABA600T4 PO; +MELO15TA28 PO; +OXYC1SOL3 PO; +PANT40TA3 PO; +STOO100C PO; +TIZA4CAP PO; +TOPI200T7 PO; +VENTAER INH; +VERA1TAB11 PO; +VITA100067 PO; -diazePAM 5 MG TAB As Ordered ONE; -oxyCODONE 5MG TAB As Ordered ONE
--- NOTE | 2018-09-16 00:20 | ECWPNPC ---
PATIENT NAME: DEEDEE SHEARER : 1975 GENDER: FEMALE VISIT DATE: 08/29/2018 DISCHARGE DATE: 08/29/18 1526 VISIT LOCKED DATE TIME: PHYSICIAN: STARLA CHEATHAM RESOURCE: STARLA CHEATHAM REASON FOR APPOINTMENT 1. POST TPI HISTORY OF PRESENT ILLNESS HISTORY OF PRESENT ILLNESS: HERE FOR POST PROCEDURE F/U.HAD TPI BILAT. NECK AND SHOULDERS ON 07/31/18.HX OF CHRONIC. PAIN THE PATIENT DESCRIBES THE PAIN... FALL RISK SCREENING: SCREENING :TWO OR MORE FALLS WITHOUT INJURY IN THE PAST YEAR CURRENT MEDICATIONS TAKING GABAPENTIN 300 MG CAPSULE 1 CAP ORALLY 2 CAPSULES IN THE MORNING AND 2 CAPSULES IN THE EVENING; TAKING URSODIOL 300 MG CAPSULE 1 CAP ORALLY DAILY TAKING E-Z SPACER 1 SPACER ICD10: J44.9 DIRECTED WITH PRN ALBUTEROL INHALER TAKING NYSTATIN [id number] UNIT/ML SUSPENSION 4 ML MOUTH/THROAT FOUR TIMES A DAY; SWISH AND SPIT OUT TAKING FERROUS SULFATE 325 MG CAPSULE 1 TABLET ORALLY DAILY WITH ORANGE JUICE TAKING TOPIRAMATE 200 MG TABLET 1 TABLET ORALLY BID TAKING PANTOPRAZOLE SODIUM 40 MG TABLET DELAYED RELEASE 1 TABLET ORALLY BID TAKING VERAPAMIL HCL ER 180 MG TABLET EXTENDED RELEASE 1 TABLET ORALLY TWICE A DAY TAKING PROMETHAZINE HCL 25 MG TABLET 1 TABLET NEEDED ORALLY EVERY 12 HRS PRN NAUSEA TAKING ATORVASTATIN CALCIUM 40 MG TABLET 1 TABLET ORALLY ONCE A DAY TAKING TIZANIDINE HCL 4 MG TABLET 1 TABLET NEEDED ORALLY TWICE A DAY; DO NOT TAKE IF TAKING BACLOFEN SAME DAY. TAKING ALBUTEROL SULFATE HFA 108 (90 BASE) MCG/ACT AEROSOL SOLUTION 2 PUFFS NEEDED INHALATION EVERY 4 HRS PRN SOB/WHEEZING TAKING MELOXICAM 15 MG TABLET 1 TABLET ORALLY ONCE A DAY PRN PAIN TAKING AMITIZA 24 MCG CAPSULE 1 CAPSULE WITH FOOD ORALLY TWICE A DAY PRN CONSTIPATION TAKING MAGNESIUM CHLORIDE - POWDER 2 [id number] (4 TSPS) ORALLY TWICE DAILY NEEDED TAKING BACLOFEN 10 MG TABLET 2 TABLET WITH FOOD OR MILK ORALLY 2 TABS AT BED TIME NEEDED TAKING AMITIZA 8 MCG CAPSULE 1 CAPSULE WITH FOOD ORALLY PRN TWICE A DAY TAKING FLONASE 50 MCG/ACT SUSPENSION 1 SPRAY IN EACH NOSTRIL NASALLY ONCE A DAY TAKING VITAMIN D3 2000 UNIT CAPSULE 1 CAPSULE ORALLY ONCE A DAY TAKING OXYCODONE HCL 10 MG TABLET 1 TABLET ORALLY Q 6-8 HRS PRN PAIN MDD=3 TAKING COLACE 100 MG CAPSULE 1 CAPSULE ORALLY BID NOT-TAKING VITAMIN C ER 1000 MG TABLET EXTENDED RELEASE 1 TABLET ORALLY ONCE A DAY, NOTES: NEVER TAKEN DISCONTINUED SEROQUEL 50 MG TABLET 1 TABLET ORALLY ONCE A DAY MEDICATION LIST REVIEWED AND RECONCILED WITH THE PATIENT PAST MEDICAL HISTORY GERD DEGENERATIVE DISC DISEASE HERNIATED DISCS BULGING DISCS ARTHRITIS IN SPINE COPD PER PATIENT CHRONIC MIGRAINES R ANKLE BROKEN L BROKEN FOOT R KNEE SCAR TISSUE HX OF BROKEN COCCYX OBESITY PCOS, HIRSUTISM HYPERLIPIDEMIA RESTLESS LEGS SYNDROME MEMORY ISSUES IRON DEFICIENCY ANEMIA CHRONIC FATIGUE HEAVY MENSTRUAL PERIODS IRREGULAR MENSTRUAL PERIODS 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 SISTER, JAYLA, STAGE 3 A LUNG CANCER SISTER, OCTOBER, WITH LEUKEMIASISTER, YEIMI, UTERINE THAT MATASTISIZE TO LUNGS, LIVER AND KIDNEYSISTER, SUNDAY, BREAST CABROTHER, ALYSSA, PROSTATE CA. SOCIAL HISTORY GENERAL: TOBACCO USE ARE YOU A:NONSMOKER NEVER SMOKER ALCOHOL SCREENING DID YOU HAVE A DRINK CONTAINING ALCOHOL IN THE PAST YEAR?NO POINTS0 INTERPRETATIONNEGATIVE RECREATIONAL DRUG USE DRUG USE?NO CAFFEINE CAFFEINE USE?NO SEXUAL HX HAD SEX IN THE LAST 12 MONTHS (VAGINAL, ORAL, OR ANAL)?NO HAVE YOU EVER HAD AN STD?NO HIV / HEP-C SCREENING HIV TEST OFFERED TO PATIENT:YES DATE OFFERED:08/01/2017 TEST ACCEPTED:NO HEP-C TEST OFFERED TO PATIENT:NO REASON:PATIENT DECLINED BROCHURE PROVIDED TO PATIENTYES MORAVIAN [id number] NONE OTHER LANGUAGE LANGUAGES SPOKEN:NORWEGIAN EDUCATION LEVEL OF EDUCATION:COLLEGE LEARNING BARRIERS / SPECIAL NEEDS BARRIERS TO LEARNING?NO HEARING IMPAIRED?NO VISION IMPAIRED?NO COGNITIVELY IMPAIRED?NO READINESS TO LEARN?NO LEARNING PREFERENCES?YES :DEMONSTRATION/VERBAL INSTRUCTION LEARNING CAPABILITIES PRESENT?NO EMOTIONAL BARRIERS?NO SPECIAL DEVICES?NO RIGHT OF WAY CUTTER NEEDED?NO DOMESTIC VIOLENCE DO YOU FEEL SAFE IN YOUR ENVIRONMENT?YES OCCUPATION: UNEMPLOYED. DIET: NO MSG ,GLUTEN FREE. EXERCISE: NONE. MARITAL STATUS: SINGLE. OTHERS AT HOME: SIBLING, IN-LAW(S). PAIN CLINIC PFS, CLERGY, PUBLIC HEALTH REFERRALS HAS THE PATIENT BEEN EDUCATED REGARDING HIS/HER PLAN OF CARE?YES HAS THE PATIENT BEEN EDUCATED REGARDING PAIN, THE RISK FOR PAIN, THE IMPORTANCE OF EFFECTIVE PAIN MANAGEMENT, AND THE PAIN ASSESSMENT PROCESS?YES ADVANCE DIRECTIVE ADVANCE DIRECTIVE DISCUSSED WITH PATIENT:YES 08/29/18 PT DOES NOT HAVE ANY ADVANCED DIRECTIVES. INFORMATION ON HCP GIVEN TO PT PER REQUEST AND ASSISTANCE OFFERED IN COMPLETING THE FORM. AD REVIEWED WITH PATIENT 07/31/18 0947 JS08/29/18 REVIEWED WITH PT. AD. HOSPITALIZATION/MAJOR DIAGNOSTIC PROCEDURE ABOVE SURGERIES REVIEW OF SYSTEMS REVIEWED BY: PROVIDER: STARLA HURTADO . CONSTITUTIONAL: ANY CHANGE IN YOUR MEDICAL CONDITION? 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 CHILLS NO . FEVER NO . INFECTION: DO YOU HAVE NEW INFECTIONS? NO . DO YOU HAVE HISTORY OF MRSA? NO . MUSCULOSKELETAL: ANY NEW PATTERNS OF PAIN OR NUMBNESS? YES, PAIN AND NUMBESS DOWN ARMS, TO HAND AND FINGERS. ALSO IN LEGS AND FEET. STATES THE PAIN HAS BEEN MORE INTENSE SINCE SHE FELL DOWN THE STAIRS IN [place]. . GASTROENTEROLOGY: ANY NEW CHANGE IN BOWEL CONTROL? NO . GENITOURINARY: ANY NEW CHANGE IN BLADDER CONTROL? NO . IS THERE A CHANCE YOU COULD BE ? NO . HEMATOLOGY/LYMPH: DO YOU TAKE ANY BLOOD THINNERS? (FOR EXAMPLE- COUMADIN, PLAVIX, AGGRENOX, PLATEL, PRADAXA, OR XARELTO) NO . WHEN WAS YOUR LAST DOSE? DATE: TIME: . NEUROLOGY: HAVE YOU FALLEN IN THE PAST 12 MONTHS? YES, 3 TIMES. THE LAST WAS 20 MINS AGO. SHE SLIPPED ON ICE AND LANDED ON RIGHT SIDE. FELL DOWN THE STAIRS 08/13 WAS NOT SEEN AFTER, HAD BRUISE RIGHT BACK-CLEAR NOW . ANY NEW EXTREMITY NUMBNESS OR WEAKNESS? NO . CARDIOLOGY: DO YOU HAVE A PACEMAKER OR DEFIBRILLATOR? NO . RESPIRATORY: HAVE YOU BEEN SICK IN THE PAST WEEK? NO . FEVER NO . FLU LIKE SYMPTOMS? NO . COUGH NO . INTEGUMENTARY: DO YOU HAVE ANY RASHES OR OPEN SORES? NO . ALLERGIC/IMMUNO: ARE YOU ALLERGIC TO IV DYE? NO . ANY NEW ALLERGIES? NO . PSYCHIATRIC: DO YOU HAVE THOUGHTS OF HURTING YOURSELF OR SOMEONE ELSE? NO . ARE YOU ABUSED, NEGLECTED, OR IN AN UNSAFE ENVIRONMENT? NO . ENDOCRINOLOGY: ARE YOU DIABETIC? NO . OTHER: DO YOU NEED ANY PRESCRIPTIONS? YES . IF YES, PLEASE LIST: OXYCODONE . ANY NEW PROBLEMS WITH YOUR MEDICATIONS? NO . WHEN DID YOU LAST EAT? ____ . WHEN DID YOU LAST DRINK? ____ . WHAT DID YOU LAST DRINK? ____ . NAME OF PERSON DRIVING YOU HOME? ____ . DO YOU HAVE ANY OTHER QUESTIONS OR CONCERNS YES, DR. BERMEO WANTS TO HAVE US DO CORTISONE SHOT, CERVICAL SPINE. SHE IS ALSO HAVING A COLONOSCOPY AND EGD 09/26/18 . VITAL SIGNS WT 197 LBS, HT 60 IN, BMI 38.47 INDEX, BP 136/79 MM HG, HR 98 /MIN, RR 18 /MIN, TEMP 97.8 F, OXYGEN SAT % 98%, SAFE IN ENV? (Y/N) Y, NA INITIALS SC 13:47, REVIEWED BY: SUKHWINDER. EXAMINATION GENERAL EXAMINATION: GENERAL APPEARANCE:AWAKE,ALERT ,PLEAASANT . PSYCHAFFECT NORMAL . LUNGS:LUNG QUINTERO ARE CLEAR TO AUSCULTATION BILATERALLY. GOOD MOVEMENT OF AIR . HEART:S1, S2 IN A REGULAR RATE AND RHYTHM. NO SIGNIFICANT MURMURS, RUBS OR GALLOPS NOTED . CERVICALTRIGGER POINTS: NOTE OVER RIGHT SHOULDER AND LOW BACK.CERVICAL AND TRAPEZIUS BILAT.. ASSESSMENTS CHRONIC PAIN DISORDER - G89.4 (PRIMARY) MYALGIA, OTHER SITE - M79.18 TREATMENT CHRONIC PAIN DISORDER REFILL OXYCODONE HCL TABLET, 10 MG, 1 TABLET, ORALLY, Q 6-8 HRS PRN PAIN MDD=3, 30 DAY(S), 90, REFILLS 0 NOTES: TPI RIGHT SHOULDER/LOW BACKISTOP REGISTRY REVIEWED AND DEMONSTRATES COMPLLIANCE. BRINGS IN MEDICATIONS WHICH IS APPROPRIATE FOR WHAT WAS DISPENSED. RECENT URINE TOXICOLOGY REVIEWED. NO UNAUTHORIZED MEDICATIONS. NO ILLICIT SUBSTANCES AND PRESCRIBED MEDICATIONS WERE PRESENT. , RISKS AND BENEFITS OF NARCOTIC/OPIOD MEDICATIONS WERE REVIEWED WITH PATIENT - THIS INCLUDES BUT IS NOT LIMITED TO RISK OF DEPENDANCE/DEVELOPMENT OF ADDICTION, MOOD DISTURBANCE AND DEPRESSION, OSTEOPOROSIS, HORMONAL AND LABIDAL CHANGES, RESPIRATORY DEPRESSION AND . PATIENT IS ADVISED NOT TO DRIVE OR DRINK ALCOHOL WHILE ON THESE MEDICATIONS,. PROCEDURE CODES FA211 ESTABILISHED PATIENT UATSDIN FACILITY CHARGE DISPOSITION & COMMUNICATION FOLLOW UP POST (REASON: TPI RIGHT SHOULDER/LOW BACK) ELECTRONICALLY SIGNED BY STARLA HURTADO, BRYANT ON 09/15/2018 AT 01:17 PM EST DISCLAIMER : THIS IS A VISIT SUMMARY EXTRACTED FROM THE [employer] CHART. IT IS NOT A COPY OF THE [employer] PROGRESS NOTE. JOHNNIE
== END ==
LOC: M PAIN 13:45
PROVIDERS: ATTEND Nurse Practitioner Family
DX: G89.4 Chronic pain syndrome (principal); M79.18 Myalgia, other site; K21.9 Gastro-esophageal reflux disease without esophagitis; J44.9 Chronic obstructive pulmonary disease, unspecified; G43.909 Migraine, unspecified, not intractable, without status migrainosus; E78.5 Hyperlipidemia, unspecified; E27.49 Other adrenocortical insufficiency; G25.81 Restless legs syndrome; Z79.891 Long term (current) use of opiate analgesic; Z79.899 Other long term (current) drug therapy; Z88.0 Allergy status to penicillin; Z88.5 Allergy status to narcotic agent; Z88.8 Allergy status to other drugs, medicaments and biological substances; Z86.2 Personal history of diseases of the blood and blood-forming organs and certain disorders involving the immune mechanism

== ENCOUNTER → 2018-09-02 | Outpatient (CLI) | payer MEDICARE ==
[~2018-09-02] MED LIST changes: +BUPIVACAINE HCL 0.25% 10 ML VIAL As Ordered ONE; +BUPIVACAINE HCL 0.25% 30 ML VIAL As Ordered ONE; +diazePAM 5 MG TAB As Ordered ONE; +oxyCODONE 5MG TAB As Ordered ONE
--- NOTE | 2018-09-19 00:20 | ECWPNPC ---
PATIENT NAME: DEEDEE SHEARER : 1975 GENDER: FEMALE VISIT DATE: 09/02/2018 DISCHARGE DATE: 09/02/18 1216 VISIT LOCKED DATE TIME: PHYSICIAN: DAVID NINO MD RESOURCE: DAVID NINO MD REASON FOR APPOINTMENT 1. TPI HISTORY OF PRESENT ILLNESS HISTORY OF PRESENT ILLNESS: PAIN THE PATIENT DESCRIBES THE PAIN... FALL RISK SCREENING: SCREENING :NO FALLS IN THE PAST YEAR CURRENT MEDICATIONS TAKING GABAPENTIN 300 MG CAPSULE 1 CAP ORALLY 2 CAPSULES IN THE MORNING AND 2 CAPSULES IN THE EVENING;, NOTES: 09/02 399 TAKING URSODIOL 300 MG CAPSULE 1 CAP ORALLY DAILY, NOTES: NONE RECENT TAKING E-Z SPACER 1 SPACER ICD10: J44.9 DIRECTED WITH PRN ALBUTEROL INHALER TAKING NYSTATIN 241218 UNIT/ML SUSPENSION 4 ML MOUTH/THROAT FOUR TIMES A DAY; SWISH AND SPIT OUT, NOTES: NONE RECENT TAKING FERROUS SULFATE 325 MG CAPSULE 1 TABLET ORALLY DAILY WITH ORANGE JUICE, NOTES: 08/31 TAKING TOPIRAMATE 200 MG TABLET 1 TABLET ORALLY BID, NOTES: 09/02 399 TAKING PANTOPRAZOLE SODIUM 40 MG TABLET DELAYED RELEASE 1 TABLET ORALLY BID, NOTES: 09/02 399 TAKING VERAPAMIL HCL ER 180 MG TABLET EXTENDED RELEASE 1 TABLET ORALLY TWICE A DAY, NOTES: 09/02 399 TAKING ATORVASTATIN CALCIUM 40 MG TABLET 1 TABLET ORALLY DAILY, NOTES: 09/02 399 TAKING PROMETHAZINE HCL 25 MG TABLET 1 TABLET NEEDED ORALLY EVERY 12 HRS PRN NAUSEA, NOTES: NONE RECENT TAKING TIZANIDINE HCL 4 MG TABLET 1 TABLET NEEDED ORALLY TWICE A DAY; DO NOT TAKE IF TAKING BACLOFEN SAME DAY., NOTES: 09/01 2099 TAKING ALBUTEROL SULFATE HFA 108 (90 BASE) MCG/ACT AEROSOL SOLUTION 2 PUFFS NEEDED INHALATION EVERY 4 HRS PRN SOB/WHEEZING, NOTES: NONE RECENT TAKING MELOXICAM 15 MG TABLET 1 TABLET ORALLY ONCE A DAY PRN PAIN, NOTES: 08/31 TAKING AMITIZA 24 MCG CAPSULE 1 CAPSULE WITH FOOD ORALLY TWICE A DAY PRN CONSTIPATION, NOTES: NONE RECENT TAKING MAGNESIUM CHLORIDE - POWDER 2 RKA=[id number] (4 TSPS) ORALLY TWICE DAILY NEEDED, NOTES: NONE RECENT TAKING BACLOFEN 10 MG TABLET 2 TABLET WITH FOOD OR MILK ORALLY 2 TABS AT BED TIME NEEDED, NOTES: NONE RECENT TAKING AMITIZA 8 MCG CAPSULE 1 CAPSULE WITH FOOD ORALLY PRN TWICE A DAY, NOTES: NONE RECENT TAKING FLONASE 50 MCG/ACT SUSPENSION 1 SPRAY IN EACH NOSTRIL NASALLY ONCE A DAY, NOTES: NONE RECENT TAKING VITAMIN D3 2000 UNIT CAPSULE 1 CAPSULE ORALLY ONCE A DAY, NOTES: TAKING 1000 UNITS 09/02 0400 TAKING OXYCODONE HCL 10 MG TABLET 1 TABLET ORALLY Q 6-8 HRS PRN PAIN MDD=3, NOTES: 09/01 2099 TAKING COLACE 100 MG CAPSULE 1 CAPSULE ORALLY BID, NOTES: 2 WEEKS AGO NOT-TAKING VITAMIN C ER 1000 MG TABLET EXTENDED RELEASE 1 TABLET ORALLY ONCE A DAY, NOTES: NEVER TAKEN MEDICATION LIST REVIEWED AND RECONCILED WITH THE PATIENT PAST MEDICAL HISTORY GERD DEGENERATIVE DISC DISEASE HERNIATED DISCS BULGING DISCS ARTHRITIS IN SPINE COPD PER PATIENT CHRONIC MIGRAINES R ANKLE BROKEN L BROKEN FOOT R KNEE SCAR TISSUE HX OF BROKEN COCCYX OBESITY PCOS, HIRSUTISM HYPERLIPIDEMIA RESTLESS LEGS SYNDROME MEMORY ISSUES IRON DEFICIENCY ANEMIA CHRONIC FATIGUE HEAVY MENSTRUAL PERIODS IRREGULAR MENSTRUAL PERIODS 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 SISTER, JAYLA, STAGE 3 A LUNG CANCER SISTER, OCTOBER, WITH LEUKEMIASISTER, YEIMI, UTERINE THAT MATASTISIZE TO LUNGS, LIVER AND KIDNEYSISTER, SUNDAY, BREAST CABROTHER, ALYSSA, PROSTATE CA. SOCIAL HISTORY GENERAL: TOBACCO USE ARE YOU A:NONSMOKER NEVER SMOKER ALCOHOL SCREENING DID YOU HAVE A DRINK CONTAINING ALCOHOL IN THE PAST YEAR?NO POINTS0 INTERPRETATIONNEGATIVE RECREATIONAL DRUG USE DRUG USE?NO CAFFEINE CAFFEINE USE?NO SEXUAL HX HAD SEX IN THE LAST 12 MONTHS (VAGINAL, ORAL, OR ANAL)?NO HAVE YOU EVER HAD AN STD?NO HIV / HEP-C SCREENING HIV TEST OFFERED TO PATIENT:YES DATE OFFERED:08/01/2017 TEST ACCEPTED:NO HEP-C TEST OFFERED TO PATIENT:NO REASON:PATIENT DECLINED BROCHURE PROVIDED TO PATIENTYES MORAVIAN [id number] NONE OTHER LANGUAGE LANGUAGES SPOKEN:[place] AND [place] EDUCATION LEVEL OF EDUCATION:COLLEGE LEARNING BARRIERS / SPECIAL NEEDS BARRIERS TO LEARNING?NO HEARING IMPAIRED?NO VISION IMPAIRED?NO COGNITIVELY IMPAIRED?NO READINESS TO LEARN?NO LEARNING PREFERENCES?YES :DEMONSTRATION/VERBAL INSTRUCTION LEARNING CAPABILITIES PRESENT?NO EMOTIONAL BARRIERS?NO SPECIAL DEVICES?NO SOLAR SALES REP NEEDED?NO DOMESTIC VIOLENCE DO YOU FEEL SAFE IN YOUR ENVIRONMENT?YES OCCUPATION: UNEMPLOYED. DIET: NO MSG ,GLUTEN FREE. EXERCISE: NONE. MARITAL STATUS: SINGLE. OTHERS AT HOME: SIBLING, IN-LAW(S). PAIN CLINIC PFS, CLERGY, PUBLIC HEALTH REFERRALS HAS THE PATIENT BEEN EDUCATED REGARDING HIS/HER PLAN OF CARE?YES HAS THE PATIENT BEEN EDUCATED REGARDING PAIN, THE RISK FOR PAIN, THE IMPORTANCE OF EFFECTIVE PAIN MANAGEMENT, AND THE PAIN ASSESSMENT PROCESS?YES ADVANCE DIRECTIVE ADVANCE DIRECTIVE DISCUSSED WITH PATIENT:YES 09/02/18 PT DOES NOT HAVE ANY ADVANCED DIRECTIVES. INFORMATION ON HCP WAS GIVEN TO PT LAST VISIT AND HELP WAS OFFERED IN COMPLETING THE FORM. AD REVIEWED WITH PATIENT 07/31/18 0947 JS08/29/18 REVIEWED WITH PT. AD. HOSPITALIZATION/MAJOR DIAGNOSTIC PROCEDURE ABOVE SURGERIES REVIEW OF SYSTEMS REVIEWED BY: PROVIDER: . CONSTITUTIONAL: ANY CHANGE IN YOUR MEDICAL CONDITION? NO . CHILLS NO . FEVER NO . INFECTION: DO YOU HAVE NEW INFECTIONS? NO . DO YOU HAVE HISTORY OF MRSA? NO . MUSCULOSKELETAL: ANY NEW PATTERNS OF PAIN OR NUMBNESS? NO . GASTROENTEROLOGY: ANY NEW CHANGE IN BOWEL CONTROL? NO . GENITOURINARY: ANY NEW CHANGE IN BLADDER CONTROL? NO . IS THERE A CHANCE YOU COULD BE ? NO . HEMATOLOGY/LYMPH: DO YOU TAKE ANY BLOOD THINNERS? (FOR EXAMPLE- COUMADIN, PLAVIX, AGGRENOX, PLATEL, PRADAXA, OR XARELTO) NO . WHEN WAS YOUR LAST DOSE? DATE: TIME: . NEUROLOGY: HAVE YOU FALLEN IN THE PAST 12 MONTHS? NO . ANY NEW EXTREMITY NUMBNESS OR WEAKNESS? NO . CARDIOLOGY: DO YOU HAVE A PACEMAKER OR DEFIBRILLATOR? NO . RESPIRATORY: HAVE YOU BEEN SICK IN THE PAST WEEK? NO . FEVER NO . FLU LIKE SYMPTOMS? NO . COUGH NO . INTEGUMENTARY: DO YOU HAVE ANY RASHES OR OPEN SORES? NO . ALLERGIC/IMMUNO: ARE YOU ALLERGIC TO IV DYE? NO . ANY NEW ALLERGIES? NO . PSYCHIATRIC: DO YOU HAVE THOUGHTS OF HURTING YOURSELF OR SOMEONE ELSE? NO . ARE YOU ABUSED, NEGLECTED, OR IN AN UNSAFE ENVIRONMENT? NO . ENDOCRINOLOGY: ARE YOU DIABETIC? NO . OTHER: DO YOU NEED ANY PRESCRIPTIONS? NO . IF YES, PLEASE LIST: ____ . ANY NEW PROBLEMS WITH YOUR MEDICATIONS? NO . WHEN DID YOU LAST EAT? 09/01 1999 . WHEN DID YOU LAST DRINK? 09/02 399 . WHAT DID YOU LAST DRINK? WATER . NAME OF PERSON DRIVING YOU HOME? SISTER, SUNDAY . DO YOU HAVE ANY OTHER QUESTIONS OR CONCERNS YES, WOULD LIKE TO DISCUSS TRIGGER POINT INJECTIONS IN HER KNEE AND ANKLE- I DISCUSSED HAVING HER DISCUSS THIS AT FOLLOW UP APPT. VS PROCEDURE DAY. I ALSO EXPLAINED TO HER THAT A NEW CONSULT MAY BE NEEDED FOR A DIFFERENT BODY PART . VITAL SIGNS WT 198.2 LBS, HT 60 IN, BMI 38.70 INDEX, BP 117/65 MM HG, HR 98 /MIN, RR 18 /MIN, TEMP 98.0 F, OXYGEN SAT % 98%, SAFE IN ENV? (Y/N) Y, NA INITIALS WA 10:23, REVIEWED BY: AD. ASSESSMENTS MYALGIA, OTHER SITE - M79.18 (PRIMARY) PROCEDURES PN TRIGGER POINT INJECTION NO STEROIDS DATE OF PROCEDURE 09/02/2018 : PRE PROCEDURE DIAGNOSIS 1. MYALGIA 2. PAIN AT BILATERAL NECK AREA, RIGHT SHOULDER AREA, AND RIGHT THORACIC AREA POST PROCEDURE DIAGNOSIS 1. MYALGIA 2. PAIN AT BILATERAL NECK AREA, RIGHT SHOULDER AREA, AND RIGHT THORACIC AREA PROCEDURE TRIGGER POINT INJECTION AT BILATERAL NECK AREA, RIGHT SHOULDER AREA, AND RIGHT THORACIC AREA SURGEON DR. DAVID NINO BOTTLE LABELER NONE ANESTHESIA LOCAL PRE PROCEDURE NOTE 43 YEAR-OLD PATIENT WITH HISTORY OF CHRONIC PAIN AT RIGHT AND LEFT NECK AREA, RIGHT SHOULDER AREA, AND RIGHT THORACIC AREA. I EVALUATED THE PATIENT AND REVIEWED THE CHART. THERE IS EVIDENCE OF BANDS OF TISSUE WITH RESTRICTION OF MOVEMENT AND PRESENCE OF TRIGGER POINT AT THE AFFECTED AREA. I WENT OVER THE RISKS, ALTERNATIVES, AND BENEFITS ASSOCIATED WITH THIS PROCEDURE. THE PATIENT WOULD LIKE TO PROCEED AND GAVE CONSENT TO PERFORM THE PROCEDURE. THE PATIENT DENIES UNEXPLAINABLE WEIGHT LOSS, FEVER, CHILLS, OR NEW CHANGES IN URINARY OR BOWEL CONTROL. DESCRIPTION OF PROCEDURE THE PATIENT WAS BROUGHT TO THE PROCEDURE ROOM AND PLACED IN THE SITTING POSITION. THE AREA WAS CLEANED WITH ALCOHOL. THE PROCEDURE WAS DONE USING ASEPTIC STERILE TECHNIQUES. I CHECKED LATERALITY AND THE LEVEL WHERE THE PROCEDURE WAS GOING TO BE PERFORMED WITH THE PATIENT AND THE SUPPORTING STAFF AT THE MOMENT OF THE TIME OUT IN THE PROCEDURE ROOM. USING A 25-GAUGE NEEDLE, TRIGGER POINTS WERE INJECTED WITH A TOTAL OF 40 ML OF BUPIVACAINE 0.25%. AGREED WITH THE PATIENT THE PROCEDURE WAS DONE WITHOUT STEROIDS. THERE WAS NO EVIDENCE OF BLOOD, PARESTHESIA OR CEREBROSPINAL FLUID DURING THE PROCEDURE. THE PATIENT WAS SENT TO THE RECOVERY ROOM. THE PATIENT WAS MOVING THE EXTREMITIES AND DOING WELL. THERE WAS NO COMPLICATION DURING THE PROCEDURE. POST PROCEDURE NOTE THE PATIENT WILL BE SEEN IN A FOLLOW UP IN THE NEXT FEW WEEKS. INSTRUCTIONS WERE GIVEN, QUESTIONS WERE ANSWERED, AND THE PATIENT EXPRESSED UNDERSTANDING AND AGREED WITH THE PLAN. I, CESARIO BREWER, DOCUMENTED THE ABOVE INFORMATION ACTING A SCRIBE FOR DR. NINO. I HAVE REVIEWED THE ABOVE DOCUMENT, WRITTEN BY CESARIO ADLER AND I VERIFY THAT IT IS ACCURATE. PROCEDURE CODES 52916 INJECT TRIGGER POINTS 3/> DISPOSITION & COMMUNICATION FOLLOW UP 3 WEEKS ELECTRONICALLY SIGNED BY DAVID NINO MD, MD ON 09/18/2018 AT 06:52 AM EST DISCLAIMER : THIS IS A VISIT SUMMARY EXTRACTED FROM THE [employer] CHART. IT IS NOT A COPY OF THE [employer] PROGRESS NOTE. JOHNNIE
== END ==
LOC: M PAIN 10:30
PROVIDERS: ATTEND Anesthesiology
DX: M79.18 Myalgia, other site (principal); M25.511 Pain in right shoulder; M25.512 Pain in left shoulder; M54.6 Pain in thoracic spine; K21.9 Gastro-esophageal reflux disease without esophagitis; J44.9 Chronic obstructive pulmonary disease, unspecified; G43.901 Migraine, unspecified, not intractable, with status migrainosus; Z79.899 Other long term (current) drug therapy; Z88.0 Allergy status to penicillin; Z88.5 Allergy status to narcotic agent; Z88.8 Allergy status to other drugs, medicaments and biological substances; Z86.2 Personal history of diseases of the blood and blood-forming organs and certain disorders involving the immune mechanism

== ENCOUNTER → 2018-09-05 | Outpatient (CLI) | payer MEDICARE ==
[~2018-09-05] MED LIST changes: +TRIAMCINOLONE ACETONIDE SUSP 40 MG/ML VIAL (J3301) As Ordered ONE
--- NOTE | 2018-09-23 00:04 | ECWPNPC ---
PATIENT NAME: DEEDEE SHEARER : 1975 GENDER: FEMALE VISIT DATE: 09/05/2018 DISCHARGE DATE: 09/05/18 1504 VISIT LOCKED DATE TIME: PHYSICIAN: DAVID NINO MD RESOURCE: DAVID NINO MD REASON FOR APPOINTMENT 1. LOW BACK TPI HISTORY OF PRESENT ILLNESS HISTORY OF PRESENT ILLNESS: PAIN THE PATIENT DESCRIBES THE PAIN... FALL RISK SCREENING: SCREENING : NO FALLS IN THE PAST YEAR. CURRENT MEDICATIONS TAKING GABAPENTIN 300 MG CAPSULE 1 CAP ORALLY 2 CAPSULES IN THE MORNING AND 2 CAPSULES IN THE EVENING;, NOTES: 09/03/18 1900 TAKING URSODIOL 300 MG CAPSULE 1 CAP ORALLY DAILY, NOTES: NONE RECENT TAKING E-Z SPACER 1 SPACER ICD10: J44.9 DIRECTED WITH PRN ALBUTEROL INHALER TAKING NYSTATIN [id number] UNIT/ML SUSPENSION 4 ML MOUTH/THROAT FOUR TIMES A DAY; SWISH AND SPIT OUT, NOTES: NONE RECENT TAKING FERROUS SULFATE 325 MG CAPSULE 1 TABLET ORALLY DAILY WITH ORANGE JUICE, NOTES: 08/31 TAKING TOPIRAMATE 200 MG TABLET 1 TABLET ORALLY BID, NOTES: 09/02 399 TAKING PANTOPRAZOLE SODIUM 40 MG TABLET DELAYED RELEASE 1 TABLET ORALLY BID, NOTES: 09/03 2199 TAKING VERAPAMIL HCL ER 180 MG TABLET EXTENDED RELEASE 1 TABLET ORALLY TWICE A DAY, NOTES: 09/03 2199 TAKING ATORVASTATIN CALCIUM 40 MG TABLET 1 TABLET ORALLY DAILY, NOTES: 09/03 0700 TAKING PROMETHAZINE HCL 25 MG TABLET 1 TABLET NEEDED ORALLY EVERY 12 HRS PRN NAUSEA, NOTES: NONE RECENT TAKING TIZANIDINE HCL 4 MG TABLET 1 TABLET NEEDED ORALLY TWICE A DAY; DO NOT TAKE IF TAKING BACLOFEN SAME DAY., NOTES: 09/03 2099 TAKING ALBUTEROL SULFATE HFA 108 (90 BASE) MCG/ACT AEROSOL SOLUTION 2 PUFFS NEEDED INHALATION EVERY 4 HRS PRN SOB/WHEEZING, NOTES: NONE RECENT TAKING MELOXICAM 15 MG TABLET 1 TABLET ORALLY ONCE A DAY PRN PAIN, NOTES: 08/31 TAKING AMITIZA 24 MCG CAPSULE 1 CAPSULE WITH FOOD ORALLY TWICE A DAY PRN CONSTIPATION, NOTES: NONE RECENT TAKING MAGNESIUM CHLORIDE - POWDER 2 [id number]=630OG (4 TSPS) ORALLY TWICE DAILY NEEDED, NOTES: NONE RECENT TAKING BACLOFEN 10 MG TABLET 2 TABLET WITH FOOD OR MILK ORALLY 2 TABS AT BED TIME NEEDED, NOTES: NONE RECENT TAKING AMITIZA 8 MCG CAPSULE 1 CAPSULE WITH FOOD ORALLY PRN TWICE A DAY, NOTES: NONE RECENT TAKING FLONASE 50 MCG/ACT SUSPENSION 1 SPRAY IN EACH NOSTRIL NASALLY ONCE A DAY, NOTES: NONE RECENT TAKING VITAMIN D3 2000 UNIT CAPSULE 1 CAPSULE ORALLY ONCE A DAY, NOTES: 09/03/18 0700 TAKING OXYCODONE HCL 10 MG TABLET 1 TABLET ORALLY Q 6-8 HRS PRN PAIN MDD=3, NOTES: 09/03 2100 TAKING COLACE 100 MG CAPSULE 1 CAPSULE ORALLY BID, NOTES: 09/03 NOT-TAKING VITAMIN C ER 1000 MG TABLET EXTENDED RELEASE 1 TABLET ORALLY ONCE A DAY, NOTES: NEVER TAKEN MEDICATION LIST REVIEWED AND RECONCILED WITH THE PATIENT PAST MEDICAL HISTORY GERD DEGENERATIVE DISC DISEASE HERNIATED DISCS BULGING DISCS ARTHRITIS IN SPINE COPD PER PATIENT CHRONIC MIGRAINES R ANKLE BROKEN L BROKEN FOOT R KNEE SCAR TISSUE HX OF BROKEN COCCYX OBESITY PCOS, HIRSUTISM HYPERLIPIDEMIA RESTLESS LEGS SYNDROME MEMORY ISSUES IRON DEFICIENCY ANEMIA CHRONIC FATIGUE HEAVY MENSTRUAL PERIODS IRREGULAR MENSTRUAL PERIODS 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 SISTER, JAYLA, STAGE 3 A LUNG CANCER SISTER, OCTOBER, WITH GORDONISTERYEIMI, UTERINE THAT MATASTISIZE TO LUNGS, LIVER AND KIDNEYSISTER, SUNDAY, BREAST CABROTHER, ALYSSA, PROSTATE CA. SOCIAL HISTORY GENERAL: TOBACCO USE ARE YOU A:NONSMOKER NEVER SMOKER ALCOHOL SCREENING DID YOU HAVE A DRINK CONTAINING ALCOHOL IN THE PAST YEAR?NO POINTS0 INTERPRETATIONNEGATIVE RECREATIONAL DRUG USE DRUG USE?NO CAFFEINE CAFFEINE USE?NO SEXUAL HX HAD SEX IN THE LAST 12 MONTHS (VAGINAL, ORAL, OR ANAL)?NO HAVE YOU EVER HAD AN STD?NO HIV / HEP-C SCREENING HIV TEST OFFERED TO PATIENT:YES DATE OFFERED:08/01/2017 TEST ACCEPTED:NO HEP-C TEST OFFERED TO PATIENT:NO REASON:PATIENT DECLINED BROCHURE PROVIDED TO PATIENTYES CHRISTIANITY [id number] NONE OTHER LANGUAGE LANGUAGES SPOKEN:[place] EDUCATION LEVEL OF EDUCATION:COLLEGE LEARNING BARRIERS / SPECIAL NEEDS BARRIERS TO LEARNING?NO HEARING IMPAIRED?NO VISION IMPAIRED?NO COGNITIVELY IMPAIRED?NO READINESS TO LEARN?NO LEARNING PREFERENCES?YES :DEMONSTRATION/VERBAL INSTRUCTION LEARNING CAPABILITIES PRESENT?NO EMOTIONAL BARRIERS?NO SPECIAL DEVICES?NO UNIT OPERATOR NEEDED?NO DOMESTIC VIOLENCE DO YOU FEEL SAFE IN YOUR ENVIRONMENT?YES OCCUPATION: UNEMPLOYED. DIET: NO MSG ,GLUTEN FREE. EXERCISE: NONE. MARITAL STATUS: SINGLE. OTHERS AT HOME: SIBLING, IN-LAW(S). PAIN CLINIC PFS, CLERGY, PUBLIC HEALTH REFERRALS HAS THE PATIENT BEEN EDUCATED REGARDING HIS/HER PLAN OF CARE?YES HAS THE PATIENT BEEN EDUCATED REGARDING PAIN, THE RISK FOR PAIN, THE IMPORTANCE OF EFFECTIVE PAIN MANAGEMENT, AND THE PAIN ASSESSMENT PROCESS?YES ADVANCE DIRECTIVE ADVANCE DIRECTIVE DISCUSSED WITH PATIENT:YES 09/05/18 PT DOES NOT HAVE ANY ADVANCED DIRECTIVES. INFORMATION ON HCP WAS GIVEN TO PT LAST VISIT AND HELP WAS OFFERED IN COMPLETING THE FORM. AD REVIEWED WITH PATIENT 07/31/18 9719 JS08/29/18 REVIEWED WITH PT. AD09/05/18 1315 REVIEWED WITH PT LAS. HOSPITALIZATION/MAJOR DIAGNOSTIC PROCEDURE ABOVE SURGERIES REVIEW OF SYSTEMS REVIEWED BY: PROVIDER: . CONSTITUTIONAL: ANY CHANGE IN YOUR MEDICAL CONDITION? NO . CHILLS NO . FEVER NO . INFECTION: DO YOU HAVE NEW INFECTIONS? NO . DO YOU HAVE HISTORY OF MRSA? NO . MUSCULOSKELETAL: ANY NEW PATTERNS OF PAIN OR NUMBNESS? NO . GASTROENTEROLOGY: ANY NEW CHANGE IN BOWEL CONTROL? NO . GENITOURINARY: ANY NEW CHANGE IN BLADDER CONTROL? NO . IS THERE A CHANCE YOU COULD BE ? NO . HEMATOLOGY/LYMPH: DO YOU TAKE ANY BLOOD THINNERS? (FOR EXAMPLE- COUMADIN, PLAVIX, AGGRENOX, PLATEL, PRADAXA, OR XARELTO) NO . WHEN WAS YOUR LAST DOSE? DATE: TIME: . NEUROLOGY: HAVE YOU FALLEN IN THE PAST 12 MONTHS? NO . ANY NEW EXTREMITY NUMBNESS OR WEAKNESS? NO . CARDIOLOGY: DO YOU HAVE A PACEMAKER OR DEFIBRILLATOR? NO . RESPIRATORY: HAVE YOU BEEN SICK IN THE PAST WEEK? NO . FEVER NO . FLU LIKE SYMPTOMS? NO . COUGH NO . INTEGUMENTARY: DO YOU HAVE ANY RASHES OR OPEN SORES? NO . ALLERGIC/IMMUNO: ARE YOU ALLERGIC TO IV DYE? NO . ANY NEW ALLERGIES? NO . PSYCHIATRIC: DO YOU HAVE THOUGHTS OF HURTING YOURSELF OR SOMEONE ELSE? NO . ARE YOU ABUSED, NEGLECTED, OR IN AN UNSAFE ENVIRONMENT? NO . ENDOCRINOLOGY: ARE YOU DIABETIC? NO . OTHER: DO YOU NEED ANY PRESCRIPTIONS? NO . IF YES, PLEASE LIST: ____ . ANY NEW PROBLEMS WITH YOUR MEDICATIONS? NO . WHEN DID YOU LAST EAT? ____09/04/18 1900 . WHEN DID YOU LAST DRINK? ____07/04 2200 . WHAT DID YOU LAST DRINK? ____WATER . NAME OF PERSON DRIVING YOU HOME? ____ . DO YOU HAVE ANY OTHER QUESTIONS OR CONCERNS NO . VITAL SIGNS WT 198.2 LBS, HT 60 IN, BMI 38.70 INDEX, BP 123/73 MM HG, HR 80 /MIN, RR 18 /MIN, TEMP 97.2 F, OXYGEN SAT % 97%, SAFE IN ENV? (Y/N) Y, NA INITIALS TX 12:58, REVIEWED BY: ASSESSMENTS MYALGIA, OTHER SITE - M79.18 (PRIMARY) PROCEDURES PN TRIGGER POINT INJECTION NO STEROIDS DATE OF PROCEDURE 09/05/2018 : PRE PROCEDURE DIAGNOSIS 1. MYALGIA 2. PAIN AT BILATERAL LOW BACK AREA POST PROCEDURE DIAGNOSIS 1. MYALGIA 2. PAIN AT BILATERAL LOW BACK AREA PROCEDURE TRIGGER POINT INJECTION AT BILATERAL LOW BACK AREA SURGEON DR. DAVID NINO HAND BOOKBINDER NONE ANESTHESIA LOCAL PRE PROCEDURE NOTE 43 YEAR-OLD PATIENT WITH HISTORY OF CHRONIC PAIN AT RIGHT AND LEFT LOW BACK AREA. I EVALUATED THE PATIENT AND REVIEWED THE CHART. THERE IS EVIDENCE OF BANDS OF TISSUE WITH RESTRICTION OF MOVEMENT AND PRESENCE OF TRIGGER POINT AT THE AFFECTED AREA. I WENT OVER THE RISKS, ALTERNATIVES, AND BENEFITS ASSOCIATED WITH THIS PROCEDURE. THE PATIENT WOULD LIKE TO PROCEED AND GAVE CONSENT TO PERFORM THE PROCEDURE. THE PATIENT DENIES UNEXPLAINABLE WEIGHT LOSS, FEVER, CHILLS, OR NEW CHANGES IN URINARY OR BOWEL CONTROL. DESCRIPTION OF PROCEDURE THE PATIENT WAS BROUGHT TO THE PROCEDURE ROOM AND PLACED IN THE SITTING POSITION. THE AREA WAS CLEANED WITH ALCOHOL. THE PROCEDURE WAS DONE USING ASEPTIC STERILE TECHNIQUES. I CHECKED LATERALITY AND THE LEVEL WHERE THE PROCEDURE WAS GOING TO BE PERFORMED WITH THE PATIENT AND THE SUPPORTING STAFF AT THE MOMENT OF THE TIME OUT IN THE PROCEDURE ROOM. USING A 25-GAUGE NEEDLE, TRIGGER POINTS WERE INJECTED WITH A TOTAL OF 40 ML OF BUPIVACAINE 0.25%. AGREED WITH THE PATIENT THE PROCEDURE WAS DONE WITHOUT STEROIDS. THERE WAS NO EVIDENCE OF BLOOD, PARESTHESIA OR CEREBROSPINAL FLUID DURING THE PROCEDURE. THE PATIENT WAS SENT TO THE RECOVERY ROOM. THE PATIENT WAS MOVING THE EXTREMITIES AND DOING WELL. THERE WAS NO COMPLICATION DURING THE PROCEDURE. POST PROCEDURE NOTE THE PATIENT WILL BE SEEN IN A FOLLOW UP IN THE NEXT FEW WEEKS. INSTRUCTIONS WERE GIVEN, QUESTIONS WERE ANSWERED, AND THE PATIENT EXPRESSED UNDERSTANDING AND AGREED WITH THE PLAN. I, CESARIO BREWER, DOCUMENTED THE ABOVE INFORMATION ACTING A SCRIBE FOR DR. NINO. I HAVE REVIEWED THE ABOVE DOCUMENT, WRITTEN BY CESARIO ADLER AND I VERIFY THAT IT IS ACCURATE. PROCEDURE CODES 23063 INJ TRIGGER POINT / [facility] [place] DISPOSITION & COMMUNICATION FOLLOW UP 3 WEEKS ELECTRONICALLY SIGNED BY DAVID NINO MD, MD ON 09/22/2018 AT 01:19 PM EST DISCLAIMER : THIS IS A VISIT SUMMARY EXTRACTED FROM THE [employer] CHART. IT IS NOT A COPY OF THE [employer] PROGRESS NOTE. JOHNNIE
== END ==
LOC: M PAIN 12:15
PROVIDERS: ATTEND Anesthesiology
DX: M79.18 Myalgia, other site (principal); M54.5 Low back pain; K21.9 Gastro-esophageal reflux disease without esophagitis; J44.9 Chronic obstructive pulmonary disease, unspecified; G43.909 Migraine, unspecified, not intractable, without status migrainosus; E78.5 Hyperlipidemia, unspecified; G25.81 Restless legs syndrome; Z79.891 Long term (current) use of opiate analgesic; Z79.899 Other long term (current) drug therapy; Z88.0 Allergy status to penicillin; Z88.5 Allergy status to narcotic agent; Z88.8 Allergy status to other drugs, medicaments and biological substances

== ENCOUNTER → 2018-09-09 | Outpatient (CLI) | payer MEDICARE ==
[~2018-09-09] MED LIST changes: -BUPIVACAINE HCL 0.25% 10 ML VIAL As Ordered ONE; -BUPIVACAINE HCL 0.25% 30 ML VIAL As Ordered ONE; -TRIAMCINOLONE ACETONIDE SUSP 40 MG/ML VIAL (J3301) As Ordered ONE; -diazePAM 5 MG TAB As Ordered ONE; -oxyCODONE 5MG TAB As Ordered ONE
--- NOTE | 2018-09-24 00:51 | ECWPNPC ---
PATIENT NAME: DEEDEE SHAERER : 1975 GENDER: FEMALE VISIT DATE: 09/09/2018 DISCHARGE DATE: 09/09/18 1610 VISIT LOCKED DATE TIME: PHYSICIAN: DAVID NINO MD RESOURCE: DAVID NINO MD REASON FOR APPOINTMENT 1. DISCUSS CASE- MRI & CLEARANCE FOR STEROIDS HISTORY OF PRESENT ILLNESS HISTORY OF PRESENT ILLNESS: PAIN THE PATIENT DESCRIBES THE PAIN... 43 YEAR OLD FEMALE PATIENT WITH A HISTORY OF CHRONIC LOW BACK AND NECK PAIN. THE PATIENT DESCRIBES THE PAIN ACHING, BURNING, SORE, TENDER, SHARP, STABBING, SHOOTING, AND CONTINUOUS WITH A PAIN SCORE OF 7-10/10 DEPENDING ON PHYSICAL ACTIVITY. THE PATIENT SAYS THAT SHE HAS HAD THIS PAIN FOR MANY YEARS AND CURRENTLY THE PAIN IN HER LOW BACK AND TAILBONE IS THE WORST. THE PATIENT SAYS THAT SHE ALSO HAS PAIN IN THE OCCIPITAL AREA THAT IS CAUSING MIGRAINES. THE PATIENT SAYS THAT SHE IS CONCERNED ABOUT HER CORTISOL LEVELS AND HAS DIFFICULTY SEEING DR. MELCHOR, SO SHE HAS BEEN TRYING TO GET INTO A LOCAL CLINICAL RESEARCH MANAGEMENT ASSOCIATE. THE PATIENT REPORTS THAT HER TAILBONE PAIN HAS BEEN AFFECTING HER BOWEL ACTIVITY. PATIENT DENIES UNEXPLAINABLE WEIGHT LOSS, FEVER, CHILLS, NEW CHANGES ON HER URINARY CONTROL. FALL RISK SCREENING: SCREENING : NO FALLS IN THE PAST YEAR. CURRENT MEDICATIONS TAKING GABAPENTIN 300 MG CAPSULE 1 CAP ORALLY 2 CAPSULES IN THE MORNING AND 2 CAPSULES IN THE EVENING;, NOTES: 09/03/18 1900 TAKING URSODIOL 300 MG CAPSULE 1 CAP ORALLY DAILY, NOTES: NONE RECENT TAKING E-Z SPACER 1 SPACER ICD10: J44.9 DIRECTED WITH PRN ALBUTEROL INHALER TAKING NYSTATIN [id number] UNIT/ML SUSPENSION 4 ML MOUTH/THROAT FOUR TIMES A DAY; SWISH AND SPIT OUT, NOTES: NONE RECENT TAKING FERROUS SULFATE 325 MG CAPSULE 1 TABLET ORALLY DAILY WITH ORANGE JUICE, NOTES: 08/31 TAKING TOPIRAMATE 200 MG TABLET 1 TABLET ORALLY BID, NOTES: 09/02 399 TAKING PANTOPRAZOLE SODIUM 40 MG TABLET DELAYED RELEASE 1 TABLET ORALLY BID, NOTES: 09/03 2199 TAKING VERAPAMIL HCL ER 180 MG TABLET EXTENDED RELEASE 1 TABLET ORALLY TWICE A DAY, NOTES: 09/03 2199 TAKING ATORVASTATIN CALCIUM 40 MG TABLET 1 TABLET ORALLY DAILY, NOTES: 09/03 07 TAKING PROMETHAZINE HCL 25 MG TABLET 1 TABLET NEEDED ORALLY EVERY 12 HRS PRN NAUSEA, NOTES: NONE RECENT TAKING TIZANIDINE HCL 4 MG TABLET 1 TABLET NEEDED ORALLY TWICE A DAY; DO NOT TAKE IF TAKING BACLOFEN SAME DAY., NOTES: 09/03 2099 TAKING ALBUTEROL SULFATE HFA 108 (90 BASE) MCG/ACT AEROSOL SOLUTION 2 PUFFS NEEDED INHALATION EVERY 4 HRS PRN SOB/WHEEZING, NOTES: NONE RECENT TAKING MELOXICAM 15 MG TABLET 1 TABLET ORALLY ONCE A DAY PRN PAIN, NOTES: 08/31 TAKING AMITIZA 24 MCG CAPSULE 1 CAPSULE WITH FOOD ORALLY TWICE A DAY PRN CONSTIPATION, NOTES: NONE RECENT TAKING MAGNESIUM CHLORIDE - POWDER 2 JPL=557XR (4 TSPS) ORALLY TWICE DAILY NEEDED, NOTES: NONE RECENT TAKING BACLOFEN 10 MG TABLET 2 TABLET WITH FOOD OR MILK ORALLY 2 TABS AT BED TIME NEEDED, NOTES: NONE RECENT TAKING AMITIZA 8 MCG CAPSULE 1 CAPSULE WITH FOOD ORALLY PRN TWICE A DAY, NOTES: NONE RECENT TAKING FLONASE 50 MCG/ACT SUSPENSION 1 SPRAY IN EACH NOSTRIL NASALLY ONCE A DAY, NOTES: NONE RECENT TAKING VITAMIN D3 2000 UNIT CAPSULE 1 CAPSULE ORALLY ONCE A DAY, NOTES: 09/03/18 0700 TAKING OXYCODONE HCL 10 MG TABLET 1 TABLET ORALLY Q 6-8 HRS PRN PAIN MDD=3, NOTES: 09/03 2099 TAKING COLACE 100 MG CAPSULE 1 CAPSULE ORALLY BID, NOTES: 09/03 NOT-TAKING VITAMIN C ER 1000 MG TABLET EXTENDED RELEASE 1 TABLET ORALLY ONCE A DAY, NOTES: NEVER TAKEN MEDICATION LIST REVIEWED AND RECONCILED WITH THE PATIENT PAST MEDICAL HISTORY GERD DEGENERATIVE DISC DISEASE HERNIATED DISCS BULGING DISCS ARTHRITIS IN SPINE COPD PER PATIENT CHRONIC MIGRAINES R ANKLE BROKEN L BROKEN FOOT R KNEE SCAR TISSUE HX OF BROKEN COCCYX OBESITY PCOS, HIRSUTISM HYPERLIPIDEMIA RESTLESS LEGS SYNDROME MEMORY ISSUES IRON DEFICIENCY ANEMIA CHRONIC FATIGUE HEAVY MENSTRUAL PERIODS IRREGULAR MENSTRUAL PERIODS 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 SISTER, JAYLA, STAGE 3 A LUNG CANCER SISTER, OCTOBER, WITH YEIMI BENNETT, UTERINE THAT MATASTISIZE TO LUNGS, LIVER AND KIDNEYSISTER, SUNDAY, BREAST CABROTHER, ALYSSA, PROSTATE CA. SOCIAL HISTORY GENERAL: TOBACCO USE ARE YOU A:NONSMOKER NEVER SMOKER ALCOHOL SCREENING DID YOU HAVE A DRINK CONTAINING ALCOHOL IN THE PAST YEAR?NO POINTS0 INTERPRETATIONNEGATIVE RECREATIONAL DRUG USE DRUG USE?NO CAFFEINE CAFFEINE USE?NO SEXUAL HX HAD SEX IN THE LAST 12 MONTHS (VAGINAL, ORAL, OR ANAL)?NO HAVE YOU EVER HAD AN STD?NO HIV / HEP-C SCREENING HIV TEST OFFERED TO PATIENT:YES DATE OFFERED:08/01/2017 TEST ACCEPTED:NO HEP-C TEST OFFERED TO PATIENT:NO REASON:PATIENT DECLINED BROCHURE PROVIDED TO PATIENTYES TAOISM [id number] NONE OTHER LANGUAGE LANGUAGES SPOKEN:EGYPTIAN EDUCATION LEVEL OF EDUCATION:COLLEGE LEARNING BARRIERS / SPECIAL NEEDS BARRIERS TO LEARNING?NO HEARING IMPAIRED?NO VISION IMPAIRED?NO COGNITIVELY IMPAIRED?NO READINESS TO LEARN?NO LEARNING PREFERENCES?YES :DEMONSTRATION/VERBAL INSTRUCTION LEARNING CAPABILITIES PRESENT?NO EMOTIONAL BARRIERS?NO SPECIAL DEVICES?NO DIRECTOR GAME NEEDED?NO DOMESTIC VIOLENCE DO YOU FEEL SAFE IN YOUR ENVIRONMENT?YES OCCUPATION: UNEMPLOYED. DIET: NO MSG ,GLUTEN FREE. EXERCISE: NONE. MARITAL STATUS: SINGLE. OTHERS AT HOME: SIBLING, IN-LAW(S). PAIN CLINIC PFS, CLERGY, PUBLIC HEALTH REFERRALS HAS THE PATIENT BEEN EDUCATED REGARDING HIS/HER PLAN OF CARE?YES HAS THE PATIENT BEEN EDUCATED REGARDING PAIN, THE RISK FOR PAIN, THE IMPORTANCE OF EFFECTIVE PAIN MANAGEMENT, AND THE PAIN ASSESSMENT PROCESS?YES ADVANCE DIRECTIVE ADVANCE DIRECTIVE DISCUSSED WITH PATIENT:YES 09/06/18 PT DOES NOT HAVE ANY ADVANCED DIRECTIVES. INFORMATION ON HCP WAS GIVEN TO PT LAST VISIT AND HELP WAS OFFERED IN COMPLETING THE FORM. LAS REVIEWED WITH PATIENT 07/31/18 5246 JS08/29/18 REVIEWED WITH PT. AD09/05/18 1315 REVIEWED WITH PT LAS09/09/18 REVIEWED WITH PT LAS. HOSPITALIZATION/MAJOR DIAGNOSTIC PROCEDURE ABOVE SURGERIES REVIEW OF SYSTEMS REVIEWED BY: PROVIDER: DAVID NINO MD . CONSTITUTIONAL: ANY CHANGE IN YOUR MEDICAL CONDITION? NO . CHILLS NO . FEVER NO . INFECTION: DO YOU HAVE NEW INFECTIONS? NO . DO YOU HAVE HISTORY OF MRSA? NO . MUSCULOSKELETAL: ANY NEW PATTERNS OF PAIN OR NUMBNESS? NO . GASTROENTEROLOGY: ANY NEW CHANGE IN BOWEL CONTROL? NO . GENITOURINARY: ANY NEW CHANGE IN BLADDER CONTROL? NO . IS THERE A CHANCE YOU COULD BE ? NO . HEMATOLOGY/LYMPH: DO YOU TAKE ANY BLOOD THINNERS? (FOR EXAMPLE- COUMADIN, PLAVIX, AGGRENOX, PLATEL, PRADAXA, OR XARELTO) NO . WHEN WAS YOUR LAST DOSE? DATE: TIME: . NEUROLOGY: HAVE YOU FALLEN IN THE PAST 12 MONTHS? NO . ANY NEW EXTREMITY NUMBNESS OR WEAKNESS? NO . CARDIOLOGY: DO YOU HAVE A PACEMAKER OR DEFIBRILLATOR? NO . RESPIRATORY: HAVE YOU BEEN SICK IN THE PAST WEEK? NO . FEVER NO . FLU LIKE SYMPTOMS? NO . COUGH NO . INTEGUMENTARY: DO YOU HAVE ANY RASHES OR OPEN SORES? NO . ALLERGIC/IMMUNO: ARE YOU ALLERGIC TO IV DYE? NO . ANY NEW ALLERGIES? NO . PSYCHIATRIC: DO YOU HAVE THOUGHTS OF HURTING YOURSELF OR SOMEONE ELSE? NO . ARE YOU ABUSED, NEGLECTED, OR IN AN UNSAFE ENVIRONMENT? NO . ENDOCRINOLOGY: ARE YOU DIABETIC? NO . OTHER: DO YOU NEED ANY PRESCRIPTIONS? NO . IF YES, PLEASE LIST: ____ . ANY NEW PROBLEMS WITH YOUR MEDICATIONS? NO . WHEN DID YOU LAST EAT? ____ . WHEN DID YOU LAST DRINK? ____ . WHAT DID YOU LAST DRINK? ____ . NAME OF PERSON DRIVING YOU HOME? ____ . DO YOU HAVE ANY OTHER QUESTIONS OR CONCERNS PT IS WONDERING ABOUT INJECTIONS INTO HER ANKLE AND/OR KNEE . VITAL SIGNS WT 198.2 LBS, HT 60 IN, BMI 38.70 INDEX, BP 121/80 MM HG, HR 108 /MIN, RR 18 /MIN, TEMP 98.3 F, OXYGEN SAT % 95%, SAFE IN ENV? (Y/N) YES, NA INITIALS AW 1430, REVIEWED BY: NACHO. EXAMINATION GENERAL EXAMINATION: PATIENT IS ALERT O X 3 AND COOPERATIVE. TENDERNESS OVER THE NECK AND OCCIPITAL AREAS. TENDERNESS OVER THE SACROILIAC JOINT. FABERE TEST POSITIVE FOR SACROILIAC JOINT DYSFUNCTION. MRI OF THE LUMBAR SPINE DONE ON 03/20/2013 SHOWS BULGING DISCS AT MULTIPLE LEVELS AND A DISC EXTRUSION AT L5-S1. CT OF THE CERVICAL SPINE DONE ON 10/07/2013 SHOWS FACET ARTHROPATHY CHANGES AND BULGING DISCS AT MULTIPLE LEVELS. ASSESSMENTS SPONDYLOSIS OF CERVICAL REGION WITHOUT MYELOPATHY OR RADICULOPATHY - M47.812 (PRIMARY) BILATERAL OCCIPITAL NEURALGIA - M54.81 SACROILIITIS, NOT ELSEWHERE CLASSIFIED - M46.1 TREATMENT SPONDYLOSIS OF CERVICAL REGION WITHOUT MYELOPATHY OR RADICULOPATHY CLINICAL NOTES: WE DISCUSSED SEVERAL ISSUES WITH MRS. SHEARER'S PAIN MANAGEMENT CASE. I WILL ORDER A NEW LUMBAR AND CERVICAL MRI SINCE IT HAS BEEN SEVERAL YEARS SINCE THE PATIENT'S LAST MRI'S AND HER PAIN HAS INCREASED SINCE THEN. I WOULD LIKE TO DISCUSS THE CASE WITH THE PATIENT'S PRIMARY CARE REGARDING HER CORTISOL LEVELS AND IF IT IS SAFE TO USE STEROIDS. INSTRUCTIONS WERE GIVEN, QUESTIONS WERE ANSWERED, PATIENT REPORTS UNDERSTANDING AND AGREES WITH THE PLAN. I, CESARIO BREWER, DOCUMENTED THE ABOVE INFORMATION ACTING A SCRIBE FOR DR. NINO. I HAVE REVIEWED THE ABOVE DOCUMENT, WRITTEN BY CESARIO HAWLEYIBYamile AND I VERIFY THAT IT IS ACCURATE. PROCEDURE CODES FA211 ESTABILISHED PATIENT [facility] FAC[facility] CHARGE G8427 CURRENT MEDS W/DOSAGES DOCUMENTED G8730 PAIN ASSESS POS TOOL F/U PLAN DOC DISPOSITION & COMMUNICATION FOLLOW UP 6 WEEKS ELECTRONICALLY SIGNED BY DAVID NINO MD, ON 09/23/2018 AT 09:53 PM EST DISCLAIMER : THIS IS A VISIT SUMMARY EXTRACTED FROM THE [email or web address] CHART. IT IS NOT A COPY OF THE [email or web address] PROGRESS NOTE. MTDD
== END ==
LOC: M PAIN 14:00
PROVIDERS: ATTEND Anesthesiology
DX: M47.812 Spondylosis without myelopathy or radiculopathy, cervical region (principal); M46.1 Sacroiliitis, not elsewhere classified; G89.29 Other chronic pain; M54.81 Occipital neuralgia; K21.9 Gastro-esophageal reflux disease without esophagitis; J44.9 Chronic obstructive pulmonary disease, unspecified; G43.901 Migraine, unspecified, not intractable, with status migrainosus; E78.5 Hyperlipidemia, unspecified; E27.49 Other adrenocortical insufficiency; G25.81 Restless legs syndrome; Z79.891 Long term (current) use of opiate analgesic; Z79.899 Other long term (current) drug therapy; Z88.0 Allergy status to penicillin; Z88.5 Allergy status to narcotic agent; Z88.8 Allergy status to other drugs, medicaments and biological substances; Z86.2 Personal history of diseases of the blood and blood-forming organs and certain disorders involving the immune mechanism

== ENCOUNTER → 2018-09-14 | Outpatient (CLI) | payer MEDICARE ==
--- NOTE | 2018-09-16 09:33 | REP ---
MRI CERVICAL SPINE WITHOUT CONTRAST: HISTORY: Radiculopathy. A diffuse disc bulge and small right paracentral disc protrusion are present at the C3-4 level. There is minimal effacement of the thecal sac without spinal cord compression. Bilateral uncinate process hypertrophy is present. This produces mild narrowing of the C3 neural foramina. A disc bulge and small right paracentral disc protrusion with associated osteophyte formation are present at the C4-5 level. There is minimal spinal cord compression. Bilateral uncinate process hypertrophy is present. This produces moderate narrowing of the C4 neural foramina. A disc bulge and small central disc protrusion with associated osteophyte formation are present at the C5-6 level. There is minimal deformity of the spinal cord. Bilateral uncinate process hypertrophy is present. This produces mild and moderate narrowing of the right and left C5 neural foramina respectively. A disc bulge and small right paracentral disc protrusion are present at the C6-7 level. There is mild effacement of the thecal sac without spinal cord compression. Bilateral uncinate process hypertrophy is present. This produces minimal and moderate narrowing of the right and left C6 neural foramina respectively. There is no other disc bulge or herniation. The remaining neural foramina are patent. The spinal cord is normal in signal intensity. The C3-4 through C6-7 intervertebral discs are decreased in height consistent with disc degeneration. A hemangioma is present in the C7 vertebral body. Normal signal intensity is present in the remaining cervical vertebral bodies. IMPRESSION: There is cervical spondylosis at the C3-4 through C6-7 levels most significant at the C4-5 level where there is minimal spinal cord compression. Electronically Signed by Moreno Saeed MD 09/16/2018 09:44 A
== END ==
LOC: M RAD 16:02
PROVIDERS: ATTEND Anesthesiology
DX: M54.2 Cervicalgia (principal)

== ENCOUNTER 2018-09-18 11:31 | Outpatient (RCR) | payer MEDICARE | END 2018-09-19 | LOC: M PT 11:31 | PROVIDERS: ATTEND Orthopaedic Surgery | DX: Z47.89 Encounter for other orthopedic aftercare (principal); M54.16 Radiculopathy, lumbar region; M54.2 Cervicalgia; M75.111 Incomplete rotator cuff tear or rupture of right shoulder, not specified as traumatic; M25.571 Pain in right ankle and joints of right foot ==

== ENCOUNTER → 2018-09-18 | Outpatient (CLI) | payer MEDICARE ==
--- NOTE | 2018-09-18 14:28 | REP ---
MR LUMBAR SPINE WITHOUT CONTRAST: HISTORY: Back pain. COMPARISON: 09/05/2017 Decreased signal intensity on T2-weighted images is present in the lumbar intervertebral discs. The L3-4 through L5-S1 intervertebral discs are decreased in height. These findings are consistent with disc degeneration. A diffuse disc bulge and small disc extrusion, central and eccentric to the left are present at the L1-2 level. There is superior migration of disc material. There is minimal compression of the thecal sac. The L1 nerves exit the neural foramina without compression. There is no disc bulge or herniation at the L2-3 level. The L2 nerves exit the neural foramina without compression. A diffuse disc bulge is present at the L3-4 level. There is minimal compression of the thecal sac. A mild-sized right intraforaminal and lateral disc protrusion is present. There is compression of the right L3 nerve in the neural foramen. The left L3 nerve exits the neural foramen without compression. A diffuse disc bulge and small central disc protrusion are present at the L4-5 level. There is minimal compression of the thecal sac. There is hypertrophy of the posterior articulating facets. The L4 nerves exit the neural foramina without compression. A diffuse disc bulge and small central disc extrusion are present at the L5-S1 level. There is minimal compression of the thecal sac and S1 nerves as they exit the thecal sac. There is hypertrophy of the posterior articulating facets. The L5 nerves exit the neural foramina without compression. The conus medullaris is normal in appearance terminating at the level of the T12-L1 intervertebral disc. Increased signal intensity on T2-weighted images is present in the endplates of the L5 and S1 vertebral bodies. This represents degenerative change. IMPRESSION: 1. Diffuse disc bulge and small disc extrusion at the L1-2 level with minimal thecal sac compression. 2. Diffuse disc bulge at the L3-4 level with minimal thecal sac compression. A mild-sized right intraforaminal and lateral disc protrusion is present. There is compression of the right L3 nerve in the neural foramen. The disc protrusion is slightly increased in size. 3. Diffuse disc bulge and small central disc protrusion at the L4-5 level with minimal thecal sac compression. The disc protrusion is a new finding. 4. Diffuse disc bulge and small central disc extrusion at the L5-S1 level with minimal compression of the thecal sac and S1 nerves as they exit the thecal sac. There is no other significant change. Electronically Signed by Moreno Saeed MD 09/18/2018 02:31 P
== END ==
LOC: M RAD 12:45
PROVIDERS: ATTEND Anesthesiology
DX: M54.16 Radiculopathy, lumbar region (principal); M54.2 Cervicalgia

== ENCOUNTER → 2018-09-23 | Outpatient (REF) | payer MEDICARE, MEDICAID ==
[~2018-09-23] MED LIST changes: +VITA500T PO
[2018-09-23 13:34] LABS: CREATININE 24 HOUR, URINE 1370.8 MG/24HR (600-1800); CREATININE, URINE 70.3 MG/DL
[2018-09-27 14:21] LABS: FREE CORTISOL 24HR URINE 76 ug/24 hr (0-50); FREE CORTISOL URINE 39 ug/L (Undefined)
== END ==
LOC: M LAB REF 12:56
PROVIDERS: ATTEND Internal Medicine Endocrinology, Diabetes & Metabolism
DX: E27.8 Other specified disorders of adrenal gland (principal)
CPT/HCPCS: 81050; 82530; 82570; G0463

== ENCOUNTER 2018-09-26 10:05 | Day surgery (SDC) | payer MEDICARE, MEDICAID ==
[~2018-09-26] VITALS: Ht 152.4 cm; Wt 85.5 kg
[~2018-09-26 10:05] MED LIST changes: -VITA500T PO
[2018-09-26] MEDS ORDERED: PROPOFOL 500 MG/50 ML VIAL As Ordered ONE (10:51)
[2018-09-26] MEDS ORDERED: VITA500T PO (10:55)
[2018-09-26] MEDS ORDERED: LIDOCAINE 2% INJ 100 MG/5 ML SDV (FOR ANES.) As Ordered ONE (10:55)
--- NOTE | 2018-09-26 11:31 | ROOR ---
Patient Name: Anamaria Velazquez Procedure Date: 09/26/2018 11:15 AM Date of : 1975 Age: 43 Room: [facility] Gender: Female Note Status: Finalized Procedure: Upper GI endoscopy Indications: Epigastric abdominal pain, Heartburn Providers: Mauricio ROMANO MD Referring MD: Shailesh Arcos MD Requesting Provider: Medicines: Monitored Anesthesia Care Complications: No immediate complications. Procedure: Pre-Anesthesia Assessment: - The heart rate, respiratory rate, oxygen saturations, blood pressure, adequacy of pulmonary ventilation, and response to care were monitored throughout the procedure. The Endoscope was introduced through the mouth, and advanced to the second part of duodenum. The upper GI endoscopy was accomplished without difficulty. The patient tolerated the procedure well. Findings: The examined esophagus was normal. Mild inflammation was found in the gastric antrum. Biopsies were taken with a cold forceps for histology. The exam of the stomach was otherwise normal. The examined duodenum was normal. Impression: - Normal esophagus. - Minimal gastritis. Biopsied. - Normal examined duodenum. Recommendation: - Continue present medications. - Follow an antireflux regimen. - Telephone endoscopist for pathology results in 2 weeks. - Return to primary care physician as previously scheduled. Mauricio Romano MD Mauricio ROMANO MD 09/26/2018 11:27:28 AM This report has been signed electronically. Number of Addenda: 0 Note Initiated On: 09/26/2018 11:15 AM Estimated Blood Loss: Estimated blood loss: none.
--- NOTE | 2018-09-26 11:45 | ROOR ---
Patient Name: Anamaria Velazquez Procedure Date: 09/26/2018 11:16 AM Date of : 1975 Age: 43 Room: [facility] Gender: Female Note Status: Finalized Procedure: Colonoscopy Indications: High risk colon cancer surveillance: Personal history of colonic polyps, Incidental - Mixed irritable bowel syndrome, History of biliary dyskinesia Providers: Mauricio ROMANO MD Referring MD: Shailesh Arcos MD Requesting Provider: Medicines: Monitored Anesthesia Care Complications: No immediate complications. Procedure: Pre-Anesthesia Assessment: - The heart rate, respiratory rate, oxygen saturations, blood pressure, adequacy of pulmonary ventilation, and response to care were monitored throughout the procedure. The Colonoscope was introduced through the anus and advanced to 10 cm into the ileum. The colonoscopy was performed without difficulty. The patient tolerated the procedure well. The quality of the bowel preparation was good. Findings: The perianal and digital rectal examinations were normal. Two sessile polyps were found in the sigmoid colon and hepatic flexure. The polyps were diminutive in size. These polyps were removed with a cold snare. Resection and retrieval were complete. Multiple medium-mouthed diverticula were found in the sigmoid colon and transverse colon. Small Internal Hemorrhoids. Impression: - Two diminutive polyps in the sigmoid colon and at the hepatic flexure, removed with a cold snare. Resected and retrieved. - Mild diverticulosis in the sigmoid colon and in the transverse colon. - Small Internal Hemorrhoids. - The examination of the colon and terminal ileum are otherwise normal. Recommendation: - Repeat colonoscopy in 5 years for surveillance based on personal history of previous adenomatous polyps. - Return to referring physician as previously scheduled. Mauricio Romano MD Mauricio ROMANO MD 09/26/2018 11:45:18 AM This report has been signed electronically. Number of Addenda: 0 Note Initiated On: 09/26/2018 11:16 AM Estimated Blood Loss: Estimated blood loss: none.
[2018-09-26 12:20] VITALS: BP 97/64
== END 2018-09-26 12:35 | disposition home or self-care (01) ==
LOC: M OPP 10:05
PROVIDERS: ATTEND Internal Medicine Gastroenterology
DX: D12.5 Benign neoplasm of sigmoid colon (principal); D12.3 Benign neoplasm of transverse colon; K57.30 Diverticulosis of large intestine without perforation or abscess without bleeding; K64.8 Other hemorrhoids; K58.2 Mixed irritable bowel syndrome; K29.70 Gastritis, unspecified, without bleeding; R12 Heartburn; R10.13 Epigastric pain; Z86.010 Personal history of colon polyps; Z85.09 Personal history of malignant neoplasm of other digestive organs

== ENCOUNTER 2018-10-01 12:20 | Outpatient (RCR) | payer MEDICARE, MEDICAID ==
[~2018-10-01 12:20] MED LIST changes: +VITA500T PO
== END 2018-10-20 ==
LOC: M PT 12:20
PROVIDERS: ATTEND Orthopaedic Surgery
DX: Z47.89 Encounter for other orthopedic aftercare (principal); M25.571 Pain in right ankle and joints of right foot; M25.512 Pain in left shoulder; M75.111 Incomplete rotator cuff tear or rupture of right shoulder, not specified as traumatic

== ENCOUNTER → 2018-10-03 | Outpatient (REF) | payer MEDICARE, MEDICAID ==
[2018-10-03 13:51] LABS: HEMOGLOBIN A1c 5.6 %
== END ==
LOC: M SFHCPLAZ 08:48
PROVIDERS: ATTEND Family Medicine
DX: Z13.1 Encounter for screening for diabetes mellitus (principal); Z80.8 Family history of malignant neoplasm of other organs or systems

== ENCOUNTER → 2018-10-09 | Outpatient (CLI) | payer MEDICARE, MEDICAID ==
[~2018-10-09] MED LIST changes: +VERA180T3 PO; -VERA1TAB11 PO
--- NOTE | 2018-10-21 00:10 | ECWPNPC ---
PATIENT NAME: DEEDEE SHEARER : 1975 GENDER: FEMALE VISIT DATE: 10/09/2018 DISCHARGE DATE: 10/09/18 1205 VISIT LOCKED DATE TIME: PHYSICIAN: DAVID NINO MD RESOURCE: DAVID NINO MD REASON FOR APPOINTMENT 1. F/U PROCEDURE HISTORY OF PRESENT ILLNESS HISTORY OF PRESENT ILLNESS: PAIN THE PATIENT DESCRIBES THE PAIN... 43 YEAR OLD FEMALE PATIENT WITH A HISTORY OF CHRONIC NECK AND LOW BACK PAIN. THE PATIENT DESCRIBES THE PAIN ACHING, SORE, TENDER, SHARP, STABBING, SHOOTING, AND CONTINUOUS WITH A PAIN SCORE OF 8-10/10 DEPENDING ON PHYSICAL ACTIVITY. THE PATIENT SAYS THAT SHE HAS HAD THIS PAIN FOR SEVERAL YEARS AND IT HAS WORSENED OVER TIME. THE PATIENT SAYS THAT HER RIGHT LOW BACK AREA IS THE WORST RIGHT NOW. THE PATIENT HAS RECEIVED TRIGGER POINT INJECTIONS IN THE PAST AND SAYS THAT THEY HAVE GIVEN HER GOOD PAIN RELIEF. PATIENT DENIES UNEXPLAINABLE WEIGHT LOSS, FEVER, CHILLS, NEW CHANGES ON HER URINARY OR BOWEL CONTROL. FALL RISK SCREENING: SCREENING : NO FALLS IN THE PAST YEAR. CURRENT MEDICATIONS TAKING GABAPENTIN 300 MG CAPSULE 1 CAP ORALLY 2 CAPSULES IN THE MORNING AND 2 CAPSULES IN THE EVENING; TAKING URSODIOL 300 MG CAPSULE 1 CAP ORALLY DAILY TAKING E-Z SPACER 1 SPACER ICD10: J44.9 DIRECTED WITH PRN ALBUTEROL INHALER TAKING NYSTATIN 190928 UNIT/ML SUSPENSION 4 ML MOUTH/THROAT FOUR TIMES A DAY; SWISH AND SPIT OUT, NOTES: USES NEEDED TAKING FERROUS SULFATE 325 MG CAPSULE 1 TABLET ORALLY DAILY WITH ORANGE JUICE TAKING PANTOPRAZOLE SODIUM 40 MG TABLET DELAYED RELEASE 1 TABLET ORALLY BID TAKING ATORVASTATIN CALCIUM 40 MG TABLET 1 TABLET ORALLY DAILY TAKING PROMETHAZINE HCL 25 MG TABLET 1 TABLET NEEDED ORALLY EVERY 12 HRS PRN NAUSEA TAKING TIZANIDINE HCL 4 MG TABLET 1 TABLET NEEDED ORALLY TWICE A DAY; DO NOT TAKE IF TAKING BACLOFEN SAME DAY. TAKING ALBUTEROL SULFATE HFA 108 (90 BASE) MCG/ACT AEROSOL SOLUTION 2 PUFFS NEEDED INHALATION EVERY 4 HRS PRN SOB/WHEEZING TAKING MELOXICAM 15 MG TABLET 1 TABLET ORALLY ONCE A DAY PRN PAIN TAKING AMITIZA 24 MCG CAPSULE 1 CAPSULE WITH FOOD ORALLY TWICE A DAY PRN CONSTIPATION TAKING MAGNESIUM CHLORIDE - POWDER 2 HIM=[id number] (4 TSPS) ORALLY TWICE DAILY NEEDED TAKING BACLOFEN 10 MG TABLET 2 TABLET WITH FOOD OR MILK ORALLY 2 TABS AT BED TIME NEEDED TAKING AMITIZA 8 MCG CAPSULE 1 CAPSULE WITH FOOD ORALLY PRN TWICE A DAY TAKING FLONASE 50 MCG/ACT SUSPENSION 1 SPRAY IN EACH NOSTRIL NASALLY ONCE A DAY TAKING VITAMIN D3 2000 UNIT CAPSULE 1 CAPSULE ORALLY ONCE A DAY TAKING COLACE 100 MG CAPSULE 1 CAPSULE ORALLY BID TAKING SPIRONOLACTONE 25 MG TABLET 1 TABLET ORALLY ONCE A DAY TAKING TOPIRAMATE 200 MG TABLET 1 1/2 TABLET ORALLY BID TAKING VERAPAMIL HCL ER 180 MG TABLET EXTENDED RELEASE 1 TABLET ORALLY TWICE A DAY TAKING DIHYDROERGOTAMINE MESYLATE 1 MG/ML SOLUTION 1 ML NEEDED INJECTION TWICE A DAY MAX DOSE. 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 GOMEZ ALLERGIES TYLENOL: FEVER - ALLERGY ZANTAC: NUMBNESS ANDTINGLING IN HANDS AND SWOLLEN LIPS - ALLERGY HYDROCODONE-ACETAMINOPHEN: FEVER ,NAUSEA - ALLERGY PENICILLIN (FOR ALLERGIES USE ONLY): YEAST INFECTION - ALLERGY SURGICAL HISTORY TONSILLECTOMY 1990 APPENDECTOMY 1977 R KNEE FX 2002 R ANKLE FX 2016 DIAGNOSTIC LAPAROSCOPY WITH REMOVAL OF SCAR TISSUE 2011 COLONOSCOPY/ ENDOSCOPY 09/26/2018 FAMILY HISTORY FATHER: , PANCREATITIS MOTHER: , EMPHYSEMA, ASTHMA SIBLINGS: ALIVE, CANCER 3 BROTHER(S) , 7 SISTER(S) - HEALTHY. SISTER, JAYLA, STAGE 3 A LUNG CANCER \\DUARTEOctober, WITH LEUKEMIA\\YEIMI RAMACHANDRAN, UTERINE THAT MATASTISIZE TO LUNGS, LIVER AND KIDNEY\\NSISTER, VALARIE, CERVICAL CA \\NBROTHER, ALYSSA, PROSTATE CA. SOCIAL HISTORY GENERAL: TOBACCO USE ARE YOU A:NONSMOKER NEVER SMOKER LATEX QUESTIONNAIRE LATEX ALLERGY : HAVE YOU EVER DEVELOPED ANY TYPE OF REACTION AFTER HANDLING LATEX PRODUCTS SUCH RUBBER GLOVES, CONDOMS, DIAPHRAGMS, BALLOONS, SOCKS, OR UNDERWEAR?NO LATEX ALLERGY : HAVE YOU EVER DEVELOPED ANY TYPE OF REACTION DURING OR AFTER DENTAL APPOINTMENT, VAGINAL/RECTAL EXAMINATION, SURGICAL PROCEDURE, OR ANY OTHER EXPOSURE?NO LATEX RISK : HAVE YOU EVER HAD ANY DIFFICULTY BREATHING OR HIVES AFTER EATING OR HANDLING ANY FRUITS, OR VEGETABLES; SUCH KIWI, BANANAS, STONE FRUITS, OR CHESTNUTSNO LATEX RISK : DO YOU HAVE A PREVIOUS PERSONAL HISTORY OF MORE THAN NINE SURGERIES, SPINA BIFIDA, OR REPEATED CATHERTIZATIONS? NO LATEX RISK : ARE YOU FREQUENTLY EXPOSED TO LATEX PRODUCTS IN YOUR OCCUPATION?NO DATE ASKED : 10/09/2018 ALCOHOL SCREENING DID YOU HAVE A DRINK CONTAINING ALCOHOL IN THE PAST YEAR?NO POINTS0 INTERPRETATIONNEGATIVE RECREATIONAL DRUG USE DRUG USE?NO CAFFEINE CAFFEINE USE?NO SEXUAL HX HAD SEX IN THE LAST 12 MONTHS (VAGINAL, ORAL, OR ANAL)?NO HAVE YOU EVER HAD AN STD?NO HIV / HEP-C SCREENING HIV TEST OFFERED TO PATIENT:YES DATE OFFERED:08/01/2017 TEST ACCEPTED:NO HEP-C TEST OFFERED TO PATIENT:NO REASON:PATIENT DECLINED BROCHURE PROVIDED TO PATIENTYES RASTAFARI [id number] NONE OTHER LANGUAGE LANGUAGES SPOKEN:CAMBODIAN EDUCATION LEVEL OF EDUCATION:COLLEGE 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 DEVICES?NO NAVIGATION OFFICER NEEDED?NO DOMESTIC VIOLENCE DO YOU FEEL SAFE IN YOUR ENVIRONMENT?YES OCCUPATION: UNEMPLOYED. DIET: NO MSG ,GLUTEN FREE. EXERCISE: NONE. MARITAL STATUS: SINGLE. OTHERS AT HOME: SIBLING, IN-LAW(S). PAIN CLINIC PFS, CLERGY, PUBLIC HEALTH REFERRALS HAS THE PATIENT BEEN EDUCATED REGARDING HIS/HER PLAN OF CARE?YES HAS THE PATIENT BEEN EDUCATED REGARDING PAIN, THE RISK FOR PAIN, THE IMPORTANCE OF EFFECTIVE PAIN MANAGEMENT, AND THE PAIN ASSESSMENT PROCESS?YES ADVANCE DIRECTIVE ADVANCE DIRECTIVE DISCUSSED WITH PATIENT:YES 10/09/18 HAS FABRICE- MALGORZATA VELASCO [phone] REVIEWED WITH PATIENT 07/31/18 0947 JS08/29/18 REVIEWED WITH PT. AD09/05/18 1315 REVIEWED WITH PT LAS09/09/18 REVIEWED WITH PT LAS. HOSPITALIZATION/MAJOR DIAGNOSTIC PROCEDURE ABOVE SURGERIES REVIEW OF SYSTEMS REVIEWED BY: PROVIDER: DAVID NINO MD . CONSTITUTIONAL: ANY CHANGE IN YOUR MEDICAL CONDITION? NO . CHILLS NO . FEVER NO . INFECTION: DO YOU HAVE NEW INFECTIONS? NO . DO YOU HAVE HISTORY OF MRSA? NO . MUSCULOSKELETAL: ANY NEW PATTERNS OF PAIN OR NUMBNESS? NO . GASTROENTEROLOGY: ANY NEW CHANGE IN BOWEL CONTROL? NO . GENITOURINARY: ANY NEW CHANGE IN BLADDER CONTROL? NO . IS THERE A CHANCE YOU COULD BE ? NO . HEMATOLOGY/LYMPH: DO YOU TAKE ANY BLOOD THINNERS? (FOR EXAMPLE- COUMADIN, PLAVIX, AGGRENOX, PLATEL, PRADAXA, OR XARELTO) NO . WHEN WAS YOUR LAST DOSE? DATE: TIME: . NEUROLOGY: HAVE YOU FALLEN IN THE PAST 12 MONTHS? YES, FELL DOWN THE STAIRS APPROX 2 MONTHS AGO . ANY NEW EXTREMITY NUMBNESS OR WEAKNESS? NO . CARDIOLOGY: DO YOU HAVE A PACEMAKER OR DEFIBRILLATOR? NO . RESPIRATORY: HAVE YOU BEEN SICK IN THE PAST WEEK? NO . FEVER NO . FLU LIKE SYMPTOMS? NO . COUGH NO . INTEGUMENTARY: DO YOU HAVE ANY RASHES OR OPEN SORES? NO . ALLERGIC/IMMUNO: ARE YOU ALLERGIC TO IV DYE? NO . ANY NEW ALLERGIES? NO . PSYCHIATRIC: DO YOU HAVE THOUGHTS OF HURTING YOURSELF OR SOMEONE ELSE? NO . ARE YOU ABUSED, NEGLECTED, OR IN AN UNSAFE ENVIRONMENT? NO . ENDOCRINOLOGY: ARE YOU DIABETIC? NO . OTHER: DO YOU NEED ANY PRESCRIPTIONS? NO . IF YES, PLEASE LIST: ____ . ANY NEW PROBLEMS WITH YOUR MEDICATIONS? NO . WHEN DID YOU LAST EAT? ____ . WHEN DID YOU LAST DRINK? ____ . WHAT DID YOU LAST DRINK? ____ . NAME OF PERSON DRIVING YOU HOME? ____ . DO YOU HAVE ANY OTHER QUESTIONS OR CONCERNS YES "IN A LOT OF PAIN, THOUGHT THIS APPOINTMENT WAS FOR TRIGGER POINT INJECTIONS" . VITAL SIGNS WT 194.8 LBS, HT 60 IN, BMI 38.04 INDEX, BP 131/85 MM HG, HR 99 /MIN, RR 18 /MIN, TEMP 97.4 F, OXYGEN SAT % 96%, SAFE IN ENV? (Y/N) Y, NA INITIALS AW 0958, REVIEWED BY: AD. EXAMINATION GENERAL EXAMINATION: PATIENT IS ALERT O X 3 AND COOPERATIVE. TENDERNESS IN THE LOW BACK AREA. PRESENCE OF TRIGGER POINTS AND BANDS OF TISSUE WITH RESTRICTION OF MOVEMENT OF THE BACK. ASSESSMENTS MYALGIA, OTHER SITE - M79.18 (PRIMARY) TREATMENT MYALGIA, OTHER SITE CLINICAL NOTES: WE DISCUSSED SEVERAL ISSUES WITH MRS. SHEARER'S PAIN MANAGEMENT CASE. DUE TO THE TRIGGER POINTS, BANDS OF TISSUE, AND RESTRICTION OF MOVEMENT, I WOULD LIKE TO MOVE FORWARD WITH A TRIGGER POINT INJECTION WITHOUT STEROIDS. WE DISCUSSED THE BENEFITS, RISKS, AND ALTERNATIVES OF THE INJECTION AND THE PATIENT WOULD LIKE TO PROCEED. THE PATIENT WILL FOLLOW UP 3 WEEKS AFTER THE INJECTION. INSTRUCTIONS WERE GIVEN, QUESTIONS WERE ANSWERED, PATIENT REPORTS UNDERSTANDING AND AGREES WITH THE PLAN. I, CESARIO BREWER, DOCUMENTED THE ABOVE INFORMATION ACTING A SCRIBE FOR DR. NINO. I HAVE REVIEWED THE ABOVE DOCUMENT, WRITTEN BY CESARIO HAWLEYIBYamile AND I VERIFY THAT IT IS ACCURATE. . PREVENTIVE MEDICINE PAIN CLINIC TEACHING: PROCEDURE TEACHING PRE TRIGGER POINT INJECTION INSTRUCTIONS REVIEWED WITH PT. VERBALIZED UNDERSTANDING.. PROCEDURE CODES FA211 ESTABILISHED PATIENT [facility] FACILITY CHARGE G8427 CURRENT MEDS W/DOSAGES DOCUMENTED G8730 PAIN ASSESS POS TOOL F/U PLAN DOC DISPOSITION & COMMUNICATION FOLLOW UP 3 WEEKS ELECTRONICALLY SIGNED BY DAVID NINO MD, ON 10/20/2018 AT 07:28 PM EDT DISCLAIMER : THIS IS A VISIT SUMMARY EXTRACTED FROM THE [employer] CHART. IT IS NOT A COPY OF THE [employer] PROGRESS NOTE. JOHNNIE
== END ==
LOC: M PAIN 09:30
PROVIDERS: ATTEND Nurse Practitioner Family
DX: M79.18 Myalgia, other site (principal); M54.2 Cervicalgia; M54.5 Low back pain; K21.9 Gastro-esophageal reflux disease without esophagitis; J44.9 Chronic obstructive pulmonary disease, unspecified; G43.909 Migraine, unspecified, not intractable, without status migrainosus; E78.5 Hyperlipidemia, unspecified; G25.81 Restless legs syndrome; R53.82 Chronic fatigue, unspecified; Z79.891 Long term (current) use of opiate analgesic; Z79.899 Other long term (current) drug therapy; Z88.0 Allergy status to penicillin; Z88.5 Allergy status to narcotic agent; Z88.8 Allergy status to other drugs, medicaments and biological substances; Z86.2 Personal history of diseases of the blood and blood-forming organs and certain disorders involving the immune mechanism
CPT/HCPCS: 70486; G0463

== ENCOUNTER → 2018-10-09 | Outpatient (CLI) | payer MEDICARE, MEDICAID ==
[~2018-10-09] MED LIST changes: -VERA180T3 PO; +VERA1TAB11 PO
--- NOTE | 2018-10-09 14:52 | REP ---
MAXILLOFACIAL CT WITHOUT CONTRAST: HISTORY: Chronic pansinusitis. The sinuses are clear. The ostiomeatal units are patent. The middle and inferior nasal turbinates are partially paradoxical. There is delicia bullosa of the right middle nasal turbinate. There is mild deviation of the nasal septum to the right superiorly and to the left inferiorly. The cribriform plate, medial thao of the orbits and optic canals are intact. The carotid canals form a segment of the posterolateral thao of the sphenoid sinus. The sphenoid sinus septum inserts into the right internal carotid canal wall. IMPRESSION: There is no acute or chronic sinusitis. Electronically Signed by Moreno Saeed MD 10/09/2018 02:55 P
== END ==
LOC: M RAD 12:21
PROVIDERS: ATTEND Otolaryngology
DX: J32.4 Chronic pansinusitis (principal); J34.2 Deviated nasal septum

== ENCOUNTER → 2018-10-11 | Outpatient (CLI) | payer MEDICARE, MEDICAID ==
[~2018-10-11] MED LIST changes: +BUPIVACAINE HCL 0.25% 10 ML VIAL As Ordered ONE; +BUPIVACAINE HCL 0.25% 30 ML VIAL As Ordered ONE; +VERA180T3 PO; -VERA1TAB11 PO; +diazePAM 5 MG TAB As Ordered ONE; +oxyCODONE 5MG TAB As Ordered ONE
--- NOTE | 2018-10-27 23:16 | ECWPNPC ---
PATIENT NAME: DEEDEE SHEARER : 1975 GENDER: FEMALE VISIT DATE: 10/11/2018 DISCHARGE DATE: 10/11/18 1033 VISIT LOCKED DATE TIME: PHYSICIAN: DAVID NINO MD RESOURCE: DAVID NINO MD REASON FOR APPOINTMENT 1. TPI W/O STEROIDS PER DR Aldana HISTORY OF PRESENT ILLNESS HISTORY OF PRESENT ILLNESS: PAIN THE PATIENT DESCRIBES THE PAIN... FALL RISK SCREENING: SCREENING : NO FALLS IN THE PAST YEAR. CURRENT MEDICATIONS TAKING GABAPENTIN 300 MG CAPSULE 1 CAP ORALLY 2 CAPSULES IN THE MORNING AND 2 CAPSULES IN THE EVENING;, NOTES: 10-10-182099 TAKING URSODIOL 300 MG CAPSULE 1 CAP ORALLY DAILY, NOTES: 10-10-18899 TAKING E-Z SPACER 1 SPACER ICD10: J44.9 DIRECTED WITH PRN ALBUTEROL INHALER TAKING NYSTATIN [id number] UNIT/ML SUSPENSION 4 ML MOUTH/THROAT FOUR TIMES A DAY; SWISH AND SPIT OUT, NOTES: USES NEEDED TAKING FERROUS SULFATE 325 MG CAPSULE 1 TABLET ORALLY DAILY WITH ORANGE JUICE, NOTES: 10-10-18899 TAKING PANTOPRAZOLE SODIUM 40 MG TABLET DELAYED RELEASE 1 TABLET ORALLY BID, NOTES: 10-10-182099 TAKING ATORVASTATIN CALCIUM 40 MG TABLET 1 TABLET ORALLY DAILY, NOTES: 10-10-18899 TAKING TIZANIDINE HCL 4 MG TABLET 1 TABLET NEEDED ORALLY TWICE A DAY; DO NOT TAKE IF TAKING BACLOFEN SAME DAY., NOTES: 10-10-182099 TAKING ALBUTEROL SULFATE HFA 108 (90 BASE) MCG/ACT AEROSOL SOLUTION 2 PUFFS NEEDED INHALATION EVERY 4 HRS PRN SOB/WHEEZING, NOTES: NOT LATELY TAKING MAGNESIUM CHLORIDE - POWDER 2 CIS=663JR (4 TSPS) ORALLY TWICE DAILY NEEDED, NOTES: NOT LAATLEY TAKING BACLOFEN 10 MG TABLET 2 TABLET WITH FOOD OR MILK ORALLY 2 TABS AT BED TIME NEEDED, NOTES: NOT T TAKEN LATELY TAKING FLONASE 50 MCG/ACT SUSPENSION 1 SPRAY IN EACH NOSTRIL NASALLY ONCE A DAY, NOTES: 10-10-18899 TAKING VITAMIN D3 2000 UNIT CAPSULE 1 CAPSULE ORALLY ONCE A DAY, NOTES: 10-10-18899 TAKING COLACE 100 MG CAPSULE 1 CAPSULE ORALLY BID, NOTES: 10-10-182099 TAKING SPIRONOLACTONE 25 MG TABLET 1 TABLET ORALLY ONCE A DAY, NOTES: NOT YET TAKING TOPIRAMATE 200 MG TABLET 1 1/2 TABLET ORALLY BID, NOTES: 10-10-182099 TAKING VERAPAMIL HCL ER 180 MG TABLET EXTENDED RELEASE 1 TABLET ORALLY TWICE A DAY, NOTES: 10-10-182099 TAKING DIHYDROERGOTAMINE MESYLATE 1 MG/ML SOLUTION 1 ML NEEDED INJECTION TWICE A DAY MAX DOSE. 3 TIMES A WEEK, NOTES: NOT LATELY TAKING KETOROLAC TROMETHAMINE 60 MG/2ML SOLUTION 1 ML NEEDED INTRAMUSCULAR EVERY 6 HRS, NOTES: NOT LATELY TAKING CHLORHEXIDINE GLUCONATE 0.12 % SOLUTION DIRECTED MOUTH/THROAT RINSE MOUTH TWICE DAILY FOR 30 SECONDS AND SPIT OUT, NOTES: NOT LATELY TAKING OXYCODONE HCL 10 MG TABLET 1 TABLET ORALLY Q 6-8 HRS PRN PAIN MDD=3, NOTES: 10-10-182099 NOT-TAKING AMITIZA 8 MCG CAPSULE 1 CAPSULE WITH FOOD ORALLY PRN TWICE A DAY DISCONTINUED MELOXICAM 15 MG TABLET 1 TABLET ORALLY ONCE A DAY PRN PAIN, NOTES: 10-10-182099 UNKNOWN PROMETHAZINE HCL 25 MG TABLET 1 TABLET NEEDED ORALLY EVERY 12 HRS PRN NAUSEA UNKNOWN AMITIZA 24 MCG CAPSULE 1 CAPSULE WITH FOOD ORALLY TWICE A DAY PRN CONSTIPATION UNKNOWN VITAMIN C ER 1000 MG TABLET EXTENDED RELEASE 1 TABLET ORALLY ONCE A DAY, NOTES: 2099 MEDICATION LIST REVIEWED AND RECONCILED WITH THE PATIENT PAST MEDICAL HISTORY GERD DEGENERATIVE DISC DISEASE HERNIATED DISCS BULGING DISCS ARTHRITIS IN SPINE COPD PER PATIENT CHRONIC MIGRAINES R ANKLE BROKEN L BROKEN FOOT R KNEE SCAR TISSUE HX OF BROKEN COCCYX OBESITY PCOS, HIRSUTISM HYPERLIPIDEMIA RESTLESS LEGS SYNDROME MEMORY ISSUES IRON DEFICIENCY ANEMIA CHRONIC FATIGUE HEAVY MENSTRUAL PERIODS IRREGULAR MENSTRUAL PERIODS ENDOMETRIOSIS INTERSTITIAL CYSTITIS REPORTED HISTORY OF COLONIC POLYPS ELEVATED 24 HR CORTISOL- SEEING DR. GOMEZ ALLERGIES TYLENOL: FEVER ZANTAC: NUMBNESS ANDTINGLING IN HANDS AND SWOLLEN LIPS - ALLERGY HYDROCODONE-ACETAMINOPHEN: FEVER ,NAUSEA - ALLERGY PENICILLIN (FOR ALLERGIES USE ONLY): YEAST INFECTION - ALLERGY SURGICAL HISTORY TONSILLECTOMY 1990 APPENDECTOMY 1977 R KNEE FX 2002 R ANKLE FX 2016 DIAGNOSTIC LAPAROSCOPY WITH REMOVAL OF SCAR TISSUE 2011 COLONOSCOPY/ ENDOSCOPY 09/26/2018 FAMILY HISTORY FATHER: , PANCREATITIS MOTHER: , EMPHYSEMA, ASTHMA SIBLINGS: ALIVE, CANCER 3 BROTHER(S) , 7 SISTER(S) - HEALTHY. SISTER, JAYLA, STAGE 3 A LUNG CANCER \\NSISTER, OCTOBER, WITH LEUKEMIA\\NSISTER, YEIMI, UTERINE THAT MATASTISIZE TO LUNGS, LIVER AND KIDNEY\\NSISTER, SUNDAY, CERVICAL CA \\NBROT, ALYSSA, PROSTATE CA. SOCIAL HISTORY GENERAL: TOBACCO USE ARE YOU A:NONSMOKER NEVER SMOKER LATEX QUESTIONNAIRE LATEX ALLERGY : HAVE YOU EVER DEVELOPED ANY TYPE OF REACTION AFTER HANDLING LATEX PRODUCTS SUCH RUBBER GLOVES, CONDOMS, DIAPHRAGMS, BALLOONS, SOCKS, OR UNDERWEAR?NO LATEX ALLERGY : HAVE YOU EVER DEVELOPED ANY TYPE OF REACTION DURING OR AFTER DENTAL APPOINTMENT, VAGINAL/RECTAL EXAMINATION, SURGICAL PROCEDURE, OR ANY OTHER EXPOSURE?NO DATE ASKED : 10/09/2018 LATEX RISK : HAVE YOU EVER HAD ANY DIFFICULTY BREATHING OR HIVES AFTER EATING OR HANDLING ANY FRUITS, OR VEGETABLES; SUCH KIWI, BANANAS, STONE FRUITS, OR CHESTNUTSNO LATEX RISK : DO YOU HAVE A PREVIOUS PERSONAL HISTORY OF MORE THAN NINE SURGERIES, SPINA BIFIDA, OR REPEATED CATHERTIZATIONS? NO LATEX RISK : ARE YOU FREQUENTLY EXPOSED TO LATEX PRODUCTS IN YOUR OCCUPATION?NO ALCOHOL SCREENING DID YOU HAVE A DRINK CONTAINING ALCOHOL IN THE PAST YEAR?NO POINTS0 INTERPRETATIONNEGATIVE RECREATIONAL DRUG USE DRUG USE?NO CAFFEINE CAFFEINE USE?NO SEXUAL HX HAD SEX IN THE LAST 12 MONTHS (VAGINAL, ORAL, OR ANAL)?NO HAVE YOU EVER HAD AN STD?NO HIV / HEP-C SCREENING HIV TEST OFFERED TO PATIENT:YES DATE OFFERED:08/01/2017 TEST ACCEPTED:NO HEP-C TEST OFFERED TO PATIENT:NO REASON:PATIENT DECLINED BROCHURE PROVIDED TO PATIENTYES YARSANI [id number] NONE OTHER LANGUAGE LANGUAGES SPOKEN:CYMRAES EDUCATION LEVEL OF EDUCATION:COLLEGE 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 DEVICES?NO 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 DIET: NO MSG ,GLUTEN FREE. EXERCISE: NONE. MARITAL STATUS: SINGLE. OTHERS AT HOME: SIBLING, IN-LAW(S). PAIN CLINIC PFS, CLERGY, PUBLIC HEALTH REFERRALS HAS THE PATIENT BEEN EDUCATED REGARDING HIS/HER PLAN OF CARE?YES HAS THE PATIENT BEEN EDUCATED REGARDING PAIN, THE RISK FOR PAIN, THE IMPORTANCE OF EFFECTIVE PAIN MANAGEMENT, AND THE PAIN ASSESSMENT PROCESS?YES ADVANCE DIRECTIVE ADVANCE DIRECTIVE DISCUSSED WITH PATIENT:YES 10/09/18 HAS HCP- MALGORZATA VELASCO [phone] REVIEWED WITH PATIENT 07/31/18 6016 JS08/29/18 REVIEWED WITH PT. AD09/05/18 1315 REVIEWED WITH PT LAS09/09/18 REVIEWED WITH PT LAS. HOSPITALIZATION/MAJOR DIAGNOSTIC PROCEDURE ABOVE SURGERIES REVIEW OF SYSTEMS REVIEWED BY: PROVIDER: . CONSTITUTIONAL: ANY CHANGE IN YOUR MEDICAL CONDITION? NO . CHILLS NO . FEVER NO . INFECTION: DO YOU HAVE NEW INFECTIONS? NO . DO YOU HAVE HISTORY OF MRSA? NO . MUSCULOSKELETAL: ANY NEW PATTERNS OF PAIN OR NUMBNESS? NO . GASTROENTEROLOGY: ANY NEW CHANGE IN BOWEL CONTROL? NO . GENITOURINARY: ANY NEW CHANGE IN BLADDER CONTROL? NO . IS THERE A CHANCE YOU COULD BE ? NO . HEMATOLOGY/LYMPH: DO YOU TAKE ANY BLOOD THINNERS? (FOR EXAMPLE- COUMADIN, PLAVIX, AGGRENOX, PLATEL, PRADAXA, OR XARELTO) NO . WHEN WAS YOUR LAST DOSE? DATE: TIME: . NEUROLOGY: HAVE YOU FALLEN IN THE PAST 12 MONTHS? YES TWO MOTHS AGO ..ANKLE WHICH WAS REPORTED . ANY NEW EXTREMITY NUMBNESS OR WEAKNESS? NO . CARDIOLOGY: DO YOU HAVE A PACEMAKER OR DEFIBRILLATOR? NO . RESPIRATORY: HAVE YOU BEEN SICK IN THE PAST WEEK? NO . FEVER NO . FLU LIKE SYMPTOMS? NO . COUGH NO . INTEGUMENTARY: DO YOU HAVE ANY RASHES OR OPEN SORES? NO . ALLERGIC/IMMUNO: ARE YOU ALLERGIC TO IV DYE? NO . ANY NEW ALLERGIES? NO . PSYCHIATRIC: DO YOU HAVE THOUGHTS OF HURTING YOURSELF OR SOMEONE ELSE? NO . ARE YOU ABUSED, NEGLECTED, OR IN AN UNSAFE ENVIRONMENT? NO . ENDOCRINOLOGY: ARE YOU DIABETIC? NO . OTHER: DO YOU NEED ANY PRESCRIPTIONS? NO . IF YES, PLEASE LIST: ____ . ANY NEW PROBLEMS WITH YOUR MEDICATIONS? NO . WHEN DID YOU LAST EAT? ____7 PM LAST NIGHT . WHEN DID YOU LAST DRINK? ____10 PM LAST NIGHT . WHAT DID YOU LAST DRINK? ____WATER . NAME OF PERSON DRIVING YOU HOME? ____NOT GOING HOME GOING TO SEE SISTER IN HOSPITAL . DO YOU HAVE ANY OTHER QUESTIONS OR CONCERNS NO . VITAL SIGNS WT 195.4 LBS, HT 60 IN, BMI 38.16 INDEX, BP 136/73 MM HG, HR 93 /MIN, RR 18 /MIN, TEMP 98.6 F, OXYGEN SAT % 95%, NA INITIALS AW 0926. ASSESSMENTS MYALGIA, OTHER SITE - M79.18 (PRIMARY) PROCEDURES PN TRIGGER POINT INJECTION NO STEROIDS DATE OF PROCEDURE 10/11/2018 : PRE PROCEDURE DIAGNOSIS 1. MYALGIA 2. PAIN AT RIGHT LOW BACK AREA POST PROCEDURE DIAGNOSIS 1. MYALGIA 2. PAIN AT RIGHT LOW BACK AREA PROCEDURE TRIGGER POINT INJECTION AT RIGHT LOW BACK AREA SURGEON DR. DAVID NINO DOUBLE END SEWER NONE ANESTHESIA LOCAL PRE PROCEDURE NOTE 43 YEAR-OLD PATIENT WITH HISTORY OF CHRONIC PAIN AT RIGHT LOW BACK AREA. I EVALUATED THE PATIENT AND REVIEWED THE CHART. THERE IS EVIDENCE OF BANDS OF TISSUE WITH RESTRICTION OF MOVEMENT AND PRESENCE OF TRIGGER POINT AT THE AFFECTED AREA. I WENT OVER THE RISKS, ALTERNATIVES, AND BENEFITS ASSOCIATED WITH THIS PROCEDURE. THE PATIENT WOULD LIKE TO PROCEED AND GAVE CONSENT TO PERFORM THE PROCEDURE. THE PATIENT DENIES UNEXPLAINABLE WEIGHT LOSS, FEVER, CHILLS, OR NEW CHANGES IN URINARY OR BOWEL CONTROL. DESCRIPTION OF PROCEDURE THE PATIENT WAS BROUGHT TO THE PROCEDURE ROOM AND PLACED IN THE SITTING POSITION. THE AREA WAS CLEANED WITH ALCOHOL. THE PROCEDURE WAS DONE USING [employer] STERILE TECHNIQUES. I CHECKED LATERALITY AND THE LEVEL WHERE THE PROCEDURE WAS GOING TO BE PERFORMED WITH THE PATIENT AND THE SUPPORTING STAFF AT THE MOMENT OF THE TIME OUT IN THE PROCEDURE ROOM. USING A 25-GAUGE NEEDLE, TRIGGER POINTS WERE INJECTED WITH A TOTAL OF 40 ML OF BUPIVACAINE 0.25%. AGREED WITH THE PATIENT THE PROCEDURE WAS DONE WITHOUT STEROIDS. THERE WAS NO EVIDENCE OF BLOOD, PARESTHESIA OR CEREBROSPINAL FLUID DURING THE PROCEDURE. THE PATIENT WAS SENT TO THE RECOVERY ROOM. THE PATIENT WAS MOVING THE EXTREMITIES AND DOING WELL. THERE WAS NO COMPLICATION DURING THE PROCEDURE. POST PROCEDURE NOTE THE PATIENT WILL BE SEEN IN A FOLLOW UP IN THE NEXT FEW WEEKS. INSTRUCTIONS WERE GIVEN, QUESTIONS WERE ANSWERED, AND THE PATIENT EXPRESSED UNDERSTANDING AND AGREED WITH THE PLAN. I, CESARIO BREWER, DOCUMENTED THE ABOVE INFORMATION ACTING A SCRIBE FOR DR. NINO. I HAVE REVIEWED THE ABOVE DOCUMENT, WRITTEN BY CESARIO ADLER AND I VERIFY THAT IT IS ACCURATE. PROCEDURE CODES 58671 INJ TRIGGER POINT 07/24 [facility] [place] & COMMUNICATION FOLLOW UP 3 WEEKS ELECTRONICALLY SIGNED BY DAVID NINO MD, MD ON 10/27/2018 AT 04:13 PM EDT DISCLAIMER : THIS IS A VISIT SUMMARY EXTRACTED FROM THE [employer] CHART. IT IS NOT A COPY OF THE [employer] PROGRESS NOTE. JOHNNIE
== END ==
LOC: M PAIN 13:15
PROVIDERS: ATTEND Anesthesiology
DX: M79.18 Myalgia, other site (principal); Z79.891 Long term (current) use of opiate analgesic; Z79.899 Other long term (current) drug therapy; Z88.5 Allergy status to narcotic agent; Z88.0 Allergy status to penicillin; Z88.8 Allergy status to other drugs, medicaments and biological substances

== ENCOUNTER → 2018-10-16 | Outpatient (REF) | payer MEDICARE, MEDICAID ==
[~2018-10-16] MED LIST changes: -BUPIVACAINE HCL 0.25% 10 ML VIAL As Ordered ONE; -BUPIVACAINE HCL 0.25% 30 ML VIAL As Ordered ONE; -diazePAM 5 MG TAB As Ordered ONE; -oxyCODONE 5MG TAB As Ordered ONE
== END ==
LOC: M SFHCPLAZ 11:04
PROVIDERS: ATTEND Family Medicine
DX: Z53.9 Procedure and treatment not carried out, unspecified reason (principal); Z80.8 Family history of malignant neoplasm of other organs or systems

== ENCOUNTER 2018-10-17 07:01 | Outpatient (CLI) | payer MEDICARE, OTHER ==
[~2018-10-17] VITALS: Ht 162.6 cm; Wt 88.2 kg
[~2018-10-17 07:01] MED LIST changes: +COSYNTROPIN 0.25 MG/ML VIAL (J0834 PER 0.25MG) IV SCH
[2018-10-17 07:15] VITALS: BP 109/62
[2018-10-17 09:30] LABS: CORTISOL 30 MINUTES 10.1 UG/DL; CORTISOL 60 MINUTES 10.1 UG/DL; CORTISOL BASELINE 10.1 UG/DL (4.3-22.4)
[2018-10-17 10:10] VITALS: BP 125/74
== END 2018-10-17 10:10 | disposition home or self-care (01) ==
LOC: M INFU 07:01
PROVIDERS: ATTEND Internal Medicine Endocrinology, Diabetes & Metabolism
DX: E27.8 Other specified disorders of adrenal gland (principal); E04.0 Nontoxic diffuse goiter
CPT/HCPCS: 36415; 82533; 96374; J0834

== ENCOUNTER → 2018-10-18 | Outpatient (CLI) | payer MEDICARE, OTHER ==
[~2018-10-18] MED LIST changes: -COSYNTROPIN 0.25 MG/ML VIAL (J0834 PER 0.25MG) IV SCH; -VERA180T3 PO; +VERA1TAB11 PO
--- NOTE | 2018-10-18 12:03 | PFTRPT ---
Site: [facility], [address] [place], [address] ID: [id number] Name: DEEDEE SHEARER Visit Date: 10/18/2018 Second ID: [id number] Referring Doctor: ASIM SIMS DO Reviewing Doctor: Sukhi Curran MD Loader Operator Supervisor: Connor PENALOZA RRT Age: 43 : 1975 Sex: Female Race: Height: 60.00 Inches Weight: 195.00 Lbs BSA: 1.85 Order IDs: [id number] Requested Test(s): <RESP-PFT.DLCO> Diagnosis: J44.9 of albuterol for postbronchodilator. Review Status: Not Reviewed Pre-Bronch Post-Bronch Pred Actual %Pred Actual %Chng SPIROMETRY FVC (L) 3.14 2.37 75 3.03 27 FEV1 (L) 2.53 2.07 81 2.70 30 FEV1/FVC (%) 81 87 107 89 2 FEF 25% (L/sec) 4.90 3.31 67 3.94 19 FEF 50% (L/sec) 4.04 2.80 69 3.62 29 FEF 75% (L/sec) 1.54 1.56 101 3.08 96 FEF 25-75% (L/sec) 2.70 2.43 89 3.55 46 FEF Max (L/sec) 6.27 3.69 58 5.43 47 FIVC (L) 2.18 2.79 27 FIF 50% (L/sec) 3.85 1.05 27 1.27 21 FIF Max (L/sec) 1.29 2.12 64 MVV (L/min) 91 49 53 Expiratory Time (sec) 7.59 6.59 -13 Back Extrap Vol (L) 0.09 0.12 29 Time To FEFmax (sec) 0.202 0.143 -28 LUNG VOLUMES SVC (L) 2.95 3.02 102 IC (L) 2.00 2.75 137 ERV (L) 0.95 0.27 28 TGV (L) 2.45 1.84 74 RV (Pleth) (L) 1.50 1.57 104 TLC (Pleth) (L) 4.45 4.59 103 RV/TLC (Pleth) (%) 33 34 103 DIFFUSION DLCOunc (ml/min/mmHg) 21.59 17.54 81 DL/VA (ml/min/mmHg/L) 4.85 4.48 92 VA (L) 4.45 3.92 88 BHT (sec) 10.26 IVC (L) 2.88 TLC (SB) (L) 4.07 AIRWAYS RESISTANCE Raw (cmH2O/L/s) 1.86 1.47 79 Gaw (L/s/cmH2O) 1.03 0.69 67 sRaw (cmH2O*s) 4.76 2.77 58 sGaw (1/cmH2O*s) 0.20 0.36 180
== END ==
LOC: M CARPUL 11:01
PROVIDERS: ATTEND Student in an Organized Health Care Education/Training Program
DX: J44.9 Chronic obstructive pulmonary disease, unspecified (principal)

== ENCOUNTER → 2018-10-23 | Outpatient (REF) | payer MEDICARE, MEDICAID ==
[~2018-10-23] MED LIST changes: +VERA180T3 PO; -VERA1TAB11 PO
[2018-10-23 18:04] LABS: BASO % 0.4 % (0.0-1.0); EOS # 0.1 10^3/uL (0.0-0.50); EOS % 1.8 % (0.0-3.0); HEMATOCRIT 37.3 % (36.0-47.0); HEMOGLOBIN 11.8 g/dl (12.0-15.5); LYMPH # 1.6 10^3/uL (1.5-4.5); LYMPH % 35.7 % (24.0-44.0); MEAN CORPUSCULAR HEMOGLOBIN 28.6 pg (27.0-33.0); MEAN CORPUSCULAR HGB CONC 31.6 g/dl (32.0-36.5); MEAN CORPUSCULAR VOLUME 90.5 fl (80.0-96.0); MONO # 0.4 10^3/uL (0.0-0.8); MONO % 7.8 % (0.0-5.0); NEUTROPHILS # 2.4 10^3/uL (1.8-7.7); NEUTROPHILS % 54.1 % (36.0-66.0); PLATELET COUNT, AUTOMATED 214 10^3/uL (150-450); RED BLOOD COUNT 4.12 10^6/uL (4.00-5.40); WHITE BLOOD COUNT 4.5 10^3/uL (4.0-10.0)
[2018-10-23 18:12] LABS: BLOOD UREA NITROGEN 12 MG/DL (7-18); CALCIUM LEVEL 8.4 MG/DL (8.5-10.1); CARBON DIOXIDE LEVEL 24 MEQ/L (21-32); CHLORIDE LEVEL 115 MEQ/L (98-107); CREATININE FOR GFR 0.83 MG/DL (0.55-1.30); GLOMERULAR FILTRATION RATE > 60.0 (>58); GLUCOSE, FASTING 97 MG/DL (70-100); SODIUM LEVEL 146 MEQ/L (136-145)
[2018-10-23 18:16] LABS: INR 1.08; PROTHROMBIN TIME 14.1 SECONDS (12.1-14.4)
[2018-10-23 18:17] LABS: PARTIAL THROMBOPLASTIN TIME 27.3 SECONDS (25.4-37.6)
== END ==
LOC: M SFHCPLAZ 15:35
PROVIDERS: ATTEND Family Medicine
DX: Z01.818 Encounter for other preprocedural examination (principal); T84.84XS Pain due to internal orthopedic prosthetic devices, implants and grafts, sequela; Z79.899 Other long term (current) drug therapy
CPT/HCPCS: 36415; 80048; 85025; 85610; 85730; G0463

== ENCOUNTER → 2018-10-24 | Outpatient (CLI) | payer MEDICARE, MEDICAID ==
--- NOTE | 2018-11-08 02:13 | ECWPNPC ---
PATIENT NAME: DEEDEE SHEARER : 1975 GENDER: FEMALE VISIT DATE: 10/24/2018 DISCHARGE DATE: 10/24/18 1054 VISIT LOCKED DATE TIME: PHYSICIAN: STARLA CHEATHAM RESOURCE: STARLA CHEATHAM REASON FOR APPOINTMENT 1. POST PROC HISTORY OF PRESENT ILLNESS HISTORY OF PRESENT ILLNESS: HERE FOR POST PROCEDURE F/U AND MANAGEMENT OFCHRONIC GENERALIZED BACK PAIN.RATING PAIN VAS 8/10.HAD TPI RIGHT LOW BACK W/OUT STEROIDS ON 10/11/18.STATES SHE IS DOING BETTER.SHE IS BEING EVALUATED BY ENDOCRINOLOGY FOR BLOOD SUGAR ISSUES AND DR. NINO WANTS CLARIFICATION REGARDING THIS BEFORE DOING ANYMORE PROCEDURES.DISCUSSED TREATMENT OPTIONS. PAIN THE PATIENT DESCRIBES THE PAIN... FALL RISK SCREENING: SCREENING :NO FALLS REPORTED IN THE LAST YEAR CURRENT MEDICATIONS TAKING GABAPENTIN 300 MG CAPSULE 1 CAP ORALLY 2 CAPSULES IN THE MORNING AND 2 CAPSULES IN THE EVENING; TAKING URSODIOL 300 MG CAPSULE 1 CAP ORALLY DAILY TAKING E-Z SPACER 1 SPACER ICD10: J44.9 DIRECTED WITH PRN ALBUTEROL INHALER TAKING NYSTATIN [id number] UNIT/ML SUSPENSION 4 ML MOUTH/THROAT FOUR TIMES A DAY; SWISH AND SPIT OUT, NOTES: USES NEEDED TAKING FERROUS SULFATE 325 MG CAPSULE 1 TABLET ORALLY DAILY WITH ORANGE JUICE TAKING PANTOPRAZOLE SODIUM 40 MG TABLET DELAYED RELEASE 1 TABLET ORALLY BID TAKING ATORVASTATIN CALCIUM 40 MG TABLET 1 TABLET ORALLY DAILY TAKING TIZANIDINE HCL 4 MG TABLET 1 TABLET NEEDED ORALLY TWICE A DAY; DO NOT TAKE IF TAKING BACLOFEN SAME DAY. TAKING ALBUTEROL SULFATE HFA 108 (90 BASE) MCG/ACT AEROSOL SOLUTION 2 PUFFS NEEDED INHALATION EVERY 4 HRS PRN SOB/WHEEZING TAKING MAGNESIUM CHLORIDE - POWDER 2 [id number] (4 TSPS) ORALLY TWICE DAILY NEEDED TAKING BACLOFEN 10 MG TABLET 2 TABLET WITH FOOD OR MILK ORALLY 2 TABS AT BED TIME NEEDED TAKING FLONASE 50 MCG/ACT SUSPENSION 1 SPRAY IN EACH NOSTRIL NASALLY ONCE A DAY TAKING VITAMIN D3 2000 UNIT CAPSULE 1 CAPSULE ORALLY ONCE A DAY TAKING COLACE 100 MG CAPSULE 1 CAPSULE ORALLY BID TAKING SPIRONOLACTONE 25 MG TABLET 1 TABLET ORALLY ONCE A DAY TAKING TOPIRAMATE 200 MG TABLET 1 1/2 TABLET ORALLY BID TAKING VERAPAMIL HCL ER 180 MG TABLET EXTENDED RELEASE 1 TABLET ORALLY TWICE A DAY TAKING DIHYDROERGOTAMINE MESYLATE 1 MG/ML SOLUTION 1 ML NEEDED INJECTION TWICE A DAY MAX DOSE. 3 TIMES A WEEK TAKING KETOROLAC TROMETHAMINE 60 MG/2ML SOLUTION 1 ML NEEDED INTRAMUSCULAR EVERY 6 HRS TAKING CHLORHEXIDINE GLUCONATE 0.12 % SOLUTION DIRECTED MOUTH/THROAT RINSE MOUTH TWICE DAILY FOR 30 SECONDS AND SPIT OUT, NOTES: NOT TAKING YET TAKING OXYCODONE HCL 10 MG TABLET 1 TABLET ORALLY Q 6-8 HRS PRN PAIN MDD=3 NOT-TAKING PROMETHAZINE HCL 25 MG TABLET 1 TABLET NEEDED ORALLY EVERY 12 HRS PRN NAUSEA NOT-TAKING AMITIZA 24 MCG CAPSULE 1 CAPSULE WITH FOOD ORALLY TWICE A DAY PRN CONSTIPATION NOT-TAKING VITAMIN C ER 1000 MG TABLET EXTENDED RELEASE 1 TABLET ORALLY ONCE A DAY NOT-TAKING AMITIZA 8 MCG CAPSULE 1 CAPSULE WITH FOOD ORALLY PRN TWICE A DAY MEDICATION LIST REVIEWED AND RECONCILED WITH THE PATIENT PAST MEDICAL HISTORY GERD DEGENERATIVE DISC DISEASE HERNIATED DISCS BULGING DISCS ARTHRITIS IN SPINE COPD PER PATIENT CHRONIC MIGRAINES R ANKLE BROKEN L BROKEN FOOT R KNEE SCAR TISSUE HX OF BROKEN COCCYX OBESITY PCOS, HIRSUTISM HYPERLIPIDEMIA RESTLESS LEGS SYNDROME MEMORY ISSUES IRON DEFICIENCY ANEMIA CHRONIC FATIGUE HEAVY MENSTRUAL PERIODS IRREGULAR MENSTRUAL PERIODS ENDOMETRIOSIS INTERSTITIAL CYSTITIS REPORTED HISTORY OF COLONIC POLYPS ELEVATED 24 HR CORTISOL- SEEING DR. GOMEZ ALLERGIES TYLENOL: FEVER ZANTAC: NUMBNESS ANDTINGLING IN HANDS AND SWOLLEN LIPS - ALLERGY HYDROCODONE-ACETAMINOPHEN: FEVER ,NAUSEA - ALLERGY PENICILLIN (FOR ALLERGIES USE ONLY): YEAST INFECTION - ALLERGY SURGICAL HISTORY TONSILLECTOMY 1990 APPENDECTOMY 1977 R KNEE FX 2002 R ANKLE FX 2016 DIAGNOSTIC LAPAROSCOPY WITH REMOVAL OF SCAR TISSUE 2011 COLONOSCOPY/ ENDOSCOPY 09/26/2018 FAMILY HISTORY FATHER: , PANCREATITIS MOTHER: , EMPHYSEMA, ASTHMA SIBLINGS: ALIVE, CANCER 3 BROTHER(S) , 7 SISTER(S) - HEALTHY. SISTER, JAYLA, STAGE 3 A LUNG CANCER \\\\\\\\NSISTER, OCTOBER, WITH LEUKEMIA\\\\\\\\NSISTER, YEIMI, UTERINE THAT MATASTISIZE TO LUNGS, LIVER AND KIDNEY\\\\\\\\NSISTER, SUNDAY, CERVICAL CA \\\\\\\\NBROTHER, ALYSSA, PROSTATE CA. SOCIAL HISTORY GENERAL: TOBACCO USE ARE YOU A:NONSMOKER NEVER SMOKER LATEX QUESTIONNAIRE LATEX ALLERGY : HAVE YOU EVER DEVELOPED ANY TYPE OF REACTION AFTER HANDLING LATEX PRODUCTS SUCH RUBBER GLOVES, CONDOMS, DIAPHRAGMS, BALLOONS, SOCKS, OR UNDERWEAR?NO LATEX ALLERGY : HAVE YOU EVER DEVELOPED ANY TYPE OF REACTION DURING OR AFTER DENTAL APPOINTMENT, VAGINAL/RECTAL EXAMINATION, SURGICAL PROCEDURE, OR ANY OTHER EXPOSURE?NO DATE ASKED : 10/09/2018 LATEX RISK : HAVE YOU EVER HAD ANY DIFFICULTY BREATHING OR HIVES AFTER EATING OR HANDLING ANY FRUITS, OR VEGETABLES; SUCH KIWI, BANANAS, STONE FRUITS, OR CHESTNUTSNO LATEX RISK : DO YOU HAVE A PREVIOUS PERSONAL HISTORY OF MORE THAN NINE SURGERIES, SPINA BIFIDA, OR REPEATED CATHERTIZATIONS? NO LATEX RISK : ARE YOU FREQUENTLY EXPOSED TO LATEX PRODUCTS IN YOUR OCCUPATION?NO ALCOHOL SCREENING DID YOU HAVE A DRINK CONTAINING ALCOHOL IN THE PAST YEAR?NO POINTS0 INTERPRETATIONNEGATIVE RECREATIONAL DRUG USE DRUG USE?NO CAFFEINE CAFFEINE USE?NO SEXUAL HX HAD SEX IN THE LAST 12 MONTHS (VAGINAL, ORAL, OR ANAL)?NO HAVE YOU EVER HAD AN STD?NO HIV / HEP-C SCREENING HIV TEST OFFERED TO PATIENT:YES DATE OFFERED:08/01/2017 TEST ACCEPTED:NO HEP-C TEST OFFERED TO PATIENT:NO REASON:PATIENT DECLINED BROCHURE PROVIDED TO PATIENTYES VOODOO [id number] NONE OTHER LANGUAGE LANGUAGES SPOKEN:[place]ER EDUCATION LEVEL OF EDUCATION:COLLEGE 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 DEVICES?NO PROGRAM DEVELOPER NEEDED?NO DOMESTIC VIOLENCE DO YOU FEEL SAFE IN YOUR ENVIRONMENT?YES OCCUPATION: UNEMPLOYED. DIET: NO MSG ,GLUTEN FREE. EXERCISE: NONE. MARITAL STATUS: SINGLE. OTHERS AT HOME: SIBLING, IN-LAW(S). PAIN CLINIC PFS, CLERGY, PUBLIC HEALTH REFERRALS HAS THE PATIENT BEEN EDUCATED REGARDING HIS/HER PLAN OF CARE?YES HAS THE PATIENT BEEN EDUCATED REGARDING PAIN, THE RISK FOR PAIN, THE IMPORTANCE OF EFFECTIVE PAIN MANAGEMENT, AND THE PAIN ASSESSMENT PROCESS?YES ADVANCE DIRECTIVE ADVANCE DIRECTIVE DISCUSSED WITH PATIENT:YES HAS HCP- MALGORZATA VELASCO [phone] REVIEWED WITH PATIENT 07/31/18 9005 JS08/29/18 REVIEWED WITH PT. AD09/05/18 1315 REVIEWED WITH PT LAS09/09/18 REVIEWED WITH PT LAS. HOSPITALIZATION/MAJOR DIAGNOSTIC PROCEDURE ABOVE SURGERIES REVIEW OF SYSTEMS REVIEWED BY: PROVIDER: STARLA CHEATHAM PERMIT SPECIALIST . CONSTITUTIONAL: ANY CHANGE IN YOUR MEDICAL CONDITION? NO . CHILLS NO . FEVER NO . INFECTION: DO YOU HAVE NEW INFECTIONS? NO . DO YOU HAVE HISTORY OF MRSA? NO . MUSCULOSKELETAL: ANY NEW PATTERNS OF PAIN OR NUMBNESS? NO . GASTROENTEROLOGY: ANY NEW CHANGE IN BOWEL CONTROL? NO . GENITOURINARY: ANY NEW CHANGE IN BLADDER CONTROL? NO . IS THERE A CHANCE YOU COULD BE ? NO . HEMATOLOGY/LYMPH: DO YOU TAKE ANY BLOOD THINNERS? (FOR EXAMPLE- COUMADIN, PLAVIX, AGGRENOX, PLATEL, PRADAXA, OR XARELTO) NO . WHEN WAS YOUR LAST DOSE? DATE: TIME: . NEUROLOGY: HAVE YOU FALLEN IN THE PAST 12 MONTHS? NO . ANY NEW EXTREMITY NUMBNESS OR WEAKNESS? RIGHT THUMB . CARDIOLOGY: DO YOU HAVE A PACEMAKER OR DEFIBRILLATOR? NO . RESPIRATORY: HAVE YOU BEEN SICK IN THE PAST WEEK? NO . FEVER NO . FLU LIKE SYMPTOMS? NO . COUGH NO . INTEGUMENTARY: DO YOU HAVE ANY RASHES OR OPEN SORES? NO . ALLERGIC/IMMUNO: ARE YOU ALLERGIC TO IV DYE? NO . ANY NEW ALLERGIES? NO . PSYCHIATRIC: DO YOU HAVE THOUGHTS OF HURTING YOURSELF OR SOMEONE ELSE? NO . ARE YOU ABUSED, NEGLECTED, OR IN AN UNSAFE ENVIRONMENT? NO . ENDOCRINOLOGY: ARE YOU DIABETIC? NO . OTHER: DO YOU NEED ANY PRESCRIPTIONS? NO . IF YES, PLEASE LIST: ____ . ANY NEW PROBLEMS WITH YOUR MEDICATIONS? NO . WHEN DID YOU LAST EAT? ____ . WHEN DID YOU LAST DRINK? ____ . WHAT DID YOU LAST DRINK? ____ . NAME OF PERSON DRIVING YOU HOME? ____ . DO YOU HAVE ANY OTHER QUESTIONS OR CONCERNS NO . VITAL SIGNS WT 196.2 LBS, HT 60 IN, BMI 38.31 INDEX, BP 135/74 MM HG, HR 99 /MIN, RR 18 /MIN, TEMP 97.6 F, OXYGEN SAT % 98, SAFE IN ENV? (Y/N) Y, NA INITIALS CM [id number], REVIEWED BY: RAIMUNDO. EXAMINATION GENERAL EXAMINATION: GENERAL APPEARANCE: ALERT,NO DISTRESS . PSYCH AFFECT NORMAL . LUNGS: LUNG SOUNDS ARE CLEAR . HEART: HEART RATE REGULAR . MUSCULOSKELETAL: MST 5/5 BILAT. LOWER EXTREMITIES . LUMBAR SACRAL SPINE TENDERNESS OVER RIGHT SIJ . DIAGNOSTIC TESTS REVIEWEDMRI L/S SPINE-09/18/18. ASSESSMENTS SACROILIITIS - M46.1 (PRIMARY) TREATMENT SACROILIITIS NOTES: RIGHT SIJ. PROCEDURE CODES FA211 ESTABILISHED PATIENT [facility] CHARGE DISPOSITION & COMMUNICATION FOLLOW UP POST (REASON: RIGHT SIJ) ELECTRONICALLY SIGNED BY BRYANT MIXON ON 11/07/2018 AT 10:02 AM EDT DISCLAIMER : THIS IS A VISIT SUMMARY EXTRACTED FROM THE [employer] CHART. IT IS NOT A COPY OF THE [employer] PROGRESS NOTE. JOHNNIE
== END ==
LOC: M PAIN 10:00
PROVIDERS: ATTEND Nurse Practitioner Family
DX: M46.1 Sacroiliitis, not elsewhere classified (principal); G89.29 Other chronic pain; K21.9 Gastro-esophageal reflux disease without esophagitis; M19.90 Unspecified osteoarthritis, unspecified site; J44.9 Chronic obstructive pulmonary disease, unspecified; G43.909 Migraine, unspecified, not intractable, without status migrainosus; E78.5 Hyperlipidemia, unspecified; G25.81 Restless legs syndrome; D50.9 Iron deficiency anemia, unspecified; Z88.0 Allergy status to penicillin; Z88.5 Allergy status to narcotic agent; Z88.6 Allergy status to analgesic agent; Z88.8 Allergy status to other drugs, medicaments and biological substances; Z79.1 Long term (current) use of non-steroidal anti-inflammatories (NSAID); Z79.891 Long term (current) use of opiate analgesic; Z79.899 Other long term (current) drug therapy

== ENCOUNTER → 2018-11-05 | Outpatient (CLI) | payer MEDICARE, MEDICAID ==
[~2018-11-05] MED LIST changes: +BUPIVACAINE HCL 0.25% 10 ML VIAL As Ordered ONE; +BUPIVACAINE HCL 0.25% 30 ML VIAL As Ordered ONE; +diazePAM 5 MG TAB As Ordered ONE; +oxyCODONE 5MG TAB As Ordered ONE
--- NOTE | 2018-11-18 00:23 | ECWPNPC ---
PATIENT NAME: DEEDEE SHEARER : 1975 GENDER: FEMALE VISIT DATE: 11/05/2018 DISCHARGE DATE: 11/05/18 1312 VISIT LOCKED DATE TIME: PHYSICIAN: DAVID NINO MD RESOURCE: DAVID NINO MD REASON FOR APPOINTMENT 1. TPI W/O STEROIDS HISTORY OF PRESENT ILLNESS HISTORY OF PRESENT ILLNESS: PAIN THE PATIENT DESCRIBES THE PAIN... FALL RISK SCREENING: SCREENING :NO FALLS REPORTED IN THE LAST YEAR CURRENT MEDICATIONS TAKING GABAPENTIN 300 MG CAPSULE 1 CAP ORALLY 2 CAPSULES IN THE MORNING AND 2 CAPSULES IN THE EVENING;, NOTES: 11/04/18 TAKING URSODIOL 300 MG CAPSULE 1 CAP ORALLY DAILY, NOTES: NONE LATELY TAKING E-Z SPACER 1 SPACER ICD10: J44.9 DIRECTED WITH PRN ALBUTEROL INHALER TAKING NYSTATIN [id number] UNIT/ML SUSPENSION 4 ML MOUTH/THROAT FOUR TIMES A DAY; SWISH AND SPIT OUT, NOTES: NONE LATELY TAKING FERROUS SULFATE 325 MG CAPSULE 1 TABLET ORALLY DAILY WITH ORANGE JUICE, NOTES: NONE LATE;LY TAKING PANTOPRAZOLE SODIUM 40 MG TABLET DELAYED RELEASE 1 TABLET ORALLY BID, NOTES: 11/04/18 TAKING ATORVASTATIN CALCIUM 40 MG TABLET 1 TABLET ORALLY DAILY, NOTES: 11/04/18 TAKING TIZANIDINE HCL 4 MG TABLET 1 TABLET NEEDED ORALLY TWICE A DAY; DO NOT TAKE IF TAKING BACLOFEN SAME DAY., NOTES: 11/04/18 TAKING ALBUTEROL SULFATE HFA 108 (90 BASE) MCG/ACT AEROSOL SOLUTION 2 PUFFS NEEDED INHALATION EVERY 4 HRS PRN SOB/WHEEZING, NOTES: NONE LATERLY TAKING MAGNESIUM CHLORIDE - POWDER 2 [id number] (4 TSPS) ORALLY TWICE DAILY NEEDED, NOTES: NONE LATELY TAKING BACLOFEN 10 MG TABLET 2 TABLET WITH FOOD OR MILK ORALLY 2 TABS AT BED TIME NEEDED, NOTES: 11/04/18 TAKING FLONASE 50 MCG/ACT SUSPENSION 1 SPRAY IN EACH NOSTRIL NASALLY ONCE A DAY, NOTES: NONE LATELY TAKING VITAMIN D3 2000 UNIT CAPSULE 1 CAPSULE ORALLY ONCE A DAY, NOTES: 11/04/18 TAKING COLACE 100 MG CAPSULE 1 CAPSULE ORALLY BID, NOTES: 11/04/18 TAKING SPIRONOLACTONE 25 MG TABLET 1 TABLET ORALLY ONCE A DAY, NOTES: NONE LATELY TAKING TOPIRAMATE 200 MG TABLET 1 1/2 TABLET ORALLY BID, NOTES: 11/04/18 TAKING DIHYDROERGOTAMINE MESYLATE 1 MG/ML SOLUTION 1 ML NEEDED INJECTION TWICE A DAY MAX DOSE. 3 TIMES A WEEK, NOTES: NONE LATELY TAKING KETOROLAC TROMETHAMINE 60 MG/2ML SOLUTION 1 ML NEEDED INTRAMUSCULAR EVERY 6 HRS, NOTES: NOT YET TAKING CHLORHEXIDINE GLUCONATE 0.12 % SOLUTION DIRECTED MOUTH/THROAT RINSE MOUTH TWICE DAILY FOR 30 SECONDS AND SPIT OUT, NOTES: NOT TAKING YET TAKING OXYCODONE HCL 10 MG TABLET 1 TABLET ORALLY Q 6-8 HRS PRN PAIN MDD=3, NOTES: 11/04/18 TAKING VERAPAMIL HCL ER 180 MG TABLET EXTENDED RELEASE 1 TABLET ORALLY TWICE A DAY, NOTES: 11/04/18 TAKING VENOFER 20 MG/ML SOLUTION INFUSE 500 MG PER HOSPITAL PROTOCOL INTRAVENOUS ONCE, NOTES: NOT YET TAKING MOBIC 15 MG TABLET 1 TABLET ORALLY ONCE A DAY, NOTES: 10/30/18 NOT-TAKING PROMETHAZINE HCL 25 MG TABLET 1 TABLET NEEDED ORALLY EVERY 12 HRS PRN NAUSEA NOT-TAKING AMITIZA 24 MCG CAPSULE 1 CAPSULE WITH FOOD ORALLY TWICE A DAY PRN CONSTIPATION NOT-TAKING VITAMIN C ER 1000 MG TABLET EXTENDED RELEASE 1 TABLET ORALLY ONCE A DAY NOT-TAKING AMITIZA 8 MCG CAPSULE 1 CAPSULE WITH FOOD ORALLY PRN TWICE A DAY MEDICATION LIST REVIEWED AND RECONCILED WITH THE PATIENT PAST MEDICAL HISTORY GERD DEGENERATIVE DISC DISEASE HERNIATED DISCS BULGING DISCS ARTHRITIS IN SPINE COPD PER PATIENT CHRONIC MIGRAINES R ANKLE BROKEN L BROKEN FOOT R KNEE SCAR TISSUE HX OF BROKEN COCCYX OBESITY PCOS, HIRSUTISM HYPERLIPIDEMIA RESTLESS LEGS SYNDROME MEMORY ISSUES IRON DEFICIENCY ANEMIA CHRONIC FATIGUE HEAVY MENSTRUAL PERIODS IRREGULAR MENSTRUAL PERIODS ENDOMETRIOSIS INTERSTITIAL CYSTITIS REPORTED HISTORY OF COLONIC POLYPS ELEVATED 24 HR CORTISOL- SEEING DR. GOMEZ ALLERGIES TYLENOL: FEVER ZANTAC: NUMBNESS ANDTINGLING IN HANDS AND SWOLLEN LIPS - ALLERGY HYDROCODONE-ACETAMINOPHEN: FEVER ,NAUSEA - ALLERGY PENICILLIN (FOR ALLERGIES USE ONLY): YEAST INFECTION - ALLERGY SURGICAL HISTORY TONSILLECTOMY 1990 APPENDECTOMY 1977 R KNEE FX 2002 R ANKLE FX 2016 DIAGNOSTIC LAPAROSCOPY WITH REMOVAL OF SCAR TISSUE 2011 COLONOSCOPY/ ENDOSCOPY 09/26/2018 RIGHT ANKLE HARDWARE REMOVED 10/2018 RIGHT ANKLE FX AND REPAIR 2015 FAMILY HISTORY FATHER: , PANCREATITIS MOTHER: , EMPHYSEMA, ASTHMA SIBLINGS: ALIVE, CANCER 3 BROTHER(S) , 7 SISTER(S) - HEALTHY. SISTER, JAYLA, STAGE 3 A LUNG CANCER \\\\\\\\\\\\\\\\\\\\\\\\\\\\\\\\NSISTER, CRISTAL, WITH LEUKEMIA\\\\\\\\\\\\\\\\\\\\\\\\\\\\\\\\NSISTER, YEIMI, UTERINE THAT MATASTISIZE TO LUNGS, LIVER AND KIDNEY\\\\\\\\\\\\\\\\\\\\\\\\\\\\\\\\NSISTER, VALARIE, CERVICAL CA \\\\\\\\\\\\\\\\\\\\\\\\\\\\\\\\NBROTHER, ALYSSA, PROSTATE CA. SOCIAL HISTORY GENERAL: TOBACCO USE ARE YOU A:NONSMOKER NEVER SMOKER LATEX QUESTIONNAIRE LATEX ALLERGY : HAVE YOU EVER DEVELOPED ANY TYPE OF REACTION AFTER HANDLING LATEX PRODUCTS SUCH RUBBER GLOVES, CONDOMS, DIAPHRAGMS, BALLOONS, SOCKS, OR UNDERWEAR?NO LATEX ALLERGY : HAVE YOU EVER DEVELOPED ANY TYPE OF REACTION DURING OR AFTER DENTAL APPOINTMENT, VAGINAL/RECTAL EXAMINATION, SURGICAL PROCEDURE, OR ANY OTHER EXPOSURE?NO DATE ASKED : 10/09/2018 LATEX RISK : HAVE YOU EVER HAD ANY DIFFICULTY BREATHING OR HIVES AFTER EATING OR HANDLING ANY FRUITS, OR VEGETABLES; SUCH KIWI, BANANAS, STONE FRUITS, OR CHESTNUTSNO LATEX RISK : DO YOU HAVE A PREVIOUS PERSONAL HISTORY OF MORE THAN NINE SURGERIES, SPINA BIFIDA, OR REPEATED CATHERTIZATIONS? NO LATEX RISK : ARE YOU FREQUENTLY EXPOSED TO LATEX PRODUCTS IN YOUR OCCUPATION?NO ALCOHOL SCREENING DID YOU HAVE A DRINK CONTAINING ALCOHOL IN THE PAST YEAR?NO POINTS0 INTERPRETATIONNEGATIVE RECREATIONAL DRUG USE DRUG USE?NO CAFFEINE CAFFEINE USE?NO SEXUAL HX HAD SEX IN THE LAST 12 MONTHS (VAGINAL, ORAL, OR ANAL)?NO HAVE YOU EVER HAD AN STD?NO HIV / HEP-C SCREENING HIV TEST OFFERED TO PATIENT:YES DATE OFFERED:08/01/2017 TEST ACCEPTED:NO HEP-C TEST OFFERED TO PATIENT:NO REASON:PATIENT DECLINED BROCHURE PROVIDED TO PATIENTYES HINDUISM [id number] NONE OTHER LANGUAGE LANGUAGES SPOKEN:CROATIAN EDUCATION LEVEL OF EDUCATION:COLLEGE 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 DEVICES?NO SKIDDER LOADER NEEDED?NO DOMESTIC VIOLENCE DO YOU FEEL SAFE IN YOUR ENVIRONMENT?YES OCCUPATION: UNEMPLOYED. DIET: NO MSG ,GLUTEN FREE. EXERCISE: NONE. MARITAL STATUS: SINGLE. OTHERS AT HOME: SIBLING, IN-LAW(S). PAIN CLINIC PFS, CLERGY, PUBLIC HEALTH REFERRALS HAS THE PATIENT BEEN EDUCATED REGARDING HIS/HER PLAN OF CARE?YES HAS THE PATIENT BEEN EDUCATED REGARDING PAIN, THE RISK FOR PAIN, THE IMPORTANCE OF EFFECTIVE PAIN MANAGEMENT, AND THE PAIN ASSESSMENT PROCESS?YES ADVANCE DIRECTIVE ADVANCE DIRECTIVE DISCUSSED WITH PATIENT:YES HAS HCP- MALGORZATA VELASCO [phone] REVIEWED WITH PATIENT 07/31/18 0942 JS08/29/18 REVIEWED WITH PT. AD09/05/18 1315 REVIEWED WITH PT LAS09/09/18 REVIEWED WITH PT LAS. HOSPITALIZATION/MAJOR DIAGNOSTIC PROCEDURE ABOVE SURGERIES REVIEW OF SYSTEMS REVIEWED BY: PROVIDER: . CONSTITUTIONAL: ANY CHANGE IN YOUR MEDICAL CONDITION? NO . CHILLS NO . FEVER NO . INFECTION: DO YOU HAVE NEW INFECTIONS? NO . DO YOU HAVE HISTORY OF MRSA? NO . MUSCULOSKELETAL: ANY NEW PATTERNS OF PAIN OR NUMBNESS? YES, THE SAME . GASTROENTEROLOGY: ANY NEW CHANGE IN BOWEL CONTROL? NO . GENITOURINARY: ANY NEW CHANGE IN BLADDER CONTROL? NO . IS THERE A CHANCE YOU COULD BE ? NO . HEMATOLOGY/LYMPH: DO YOU TAKE ANY BLOOD THINNERS? (FOR EXAMPLE- COUMADIN, PLAVIX, AGGRENOX, PLATEL, PRADAXA, OR XARELTO) NO . WHEN WAS YOUR LAST DOSE? DATE: TIME: . NEUROLOGY: HAVE YOU FALLEN IN THE PAST 12 MONTHS? NO . ANY NEW EXTREMITY NUMBNESS OR WEAKNESS? NO . CARDIOLOGY: DO YOU HAVE A PACEMAKER OR DEFIBRILLATOR? NO . RESPIRATORY: HAVE YOU BEEN SICK IN THE PAST WEEK? NO . FEVER NO . FLU LIKE SYMPTOMS? NO . COUGH NO . INTEGUMENTARY: DO YOU HAVE ANY RASHES OR OPEN SORES? NO . ALLERGIC/IMMUNO: ARE YOU ALLERGIC TO IV DYE? NO . ANY NEW ALLERGIES? NO . PSYCHIATRIC: DO YOU HAVE THOUGHTS OF HURTING YOURSELF OR SOMEONE ELSE? NO . ARE YOU ABUSED, NEGLECTED, OR IN AN UNSAFE ENVIRONMENT? NO . ENDOCRINOLOGY: ARE YOU DIABETIC? NO . OTHER: DO YOU NEED ANY PRESCRIPTIONS? NO . IF YES, PLEASE LIST: ____ . ANY NEW PROBLEMS WITH YOUR MEDICATIONS? NO . WHEN DID YOU LAST EAT? 11/04/18 1900 . WHEN DID YOU LAST DRINK? 11/05/18 0500 . WHAT DID YOU LAST DRINK? WATER . NAME OF PERSON DRIVING YOU HOME? BROTHER . DO YOU HAVE ANY OTHER QUESTIONS OR CONCERNS NO . VITAL SIGNS WT 200 LBS, HT 60 IN, BMI 39.06 INDEX, BP 118/70 MM HG, HR 80 /MIN, RR 18 /MIN, TEMP 98.1 F, OXYGEN SAT % 99%, NA INITIALS AW 1143, REVIEWED BY: EM. ASSESSMENTS MYALGIA, OTHER SITE - M79.18 (PRIMARY) PROCEDURES PN TRIGGER POINT INJECTION WITH STEROIDS PRE PROCEDURE DIAGNOSIS 1. MYALGIA 2. PAIN AT RIGHT LOW BACK AREA. POST PROCEDURE DIAGNOSIS 1. MYALGIA 2. PAIN AT RIGHT LOW BACK AREA. PROCEDURE TRIGGER POINT INJECTION AT RIGHT LOW BACK AREA. SURGEON DR. DAVID NINO PROJECT DEVELOPMENT LEADER NONE ANESTHESIA LOCAL PRE PROCEDURE NOTE THE PATIENT HAS A HISTORY OF CHRONIC PAIN AT THE RIGHT LOW BACK AREA. I EVALUATE THE PATIENT AND REVIEWED THE CHART. THERE IS EVIDENCE OF BANDS OF TISSUE WITH RESTRICTION OF MOVEMENT AND PRESENCE OF TRIGGER POINT AT THE AFFECTED AREA. I WENT OVER THE RISKS, ALTERNATIVES, AND BENEFITS ASSOCIATED WITH THIS PROCEDURE. THE PATIENT WOULD LIKE TO PROCEED AND GIVE CONSENT TO PERFORMED THE PROCEDURE. THE PATIENT DENIES UNEXPLAINABLE WEIGHT LOSS, FEVER, CHILLS, OR NEW CHANGES IN URINARY OR BOWEL CONTROL DESCRIPTION OF PROCEDURE THE PATIENT WAS BROUGHT TO THE PROCEDURE ROOM AND PLACED IN THE SITTING POSITION. THE AREA WAS CLEANED WITH ALCOHOL. THE PROCEDURE WAS DONE USING ASEPTIC STERILE TECHNIQUE. I CHECKED LATERALITY AND THE LEVEL WHERE THE PROCEDURE WAS GOING TO BE PERFORMED WITH THE PATIENT AND THE SUPPORTING STAFF AT THE MOMENT OF THE TIME OUT IN THE PROCEDURE ROOM. USING A 25-GAUGE NEEDLE, TRIGGER POINTS WERE INJECTED AT THE RIGHT LOW BACK AREA WITH A TOTAL OF 40 ML OF BUPIVACAINE 0.25% AND KENALOG 40 MG. THERE WAS NO EVIDENCE OF BLOOD, PARESTHESIA OR CEREBROSPINAL FLUID DURING THE PROCEDURE. THE PATIENT WAS SENT TO THE RECOVERY ROOM. THE PATIENT WAS MOVING THE EXTREMITIES AND DOING WELL. THERE WAS NO COMPLICATION DURING THE PROCEDURE POST PROCEDURE NOTE THE PATIENT WILL BE SEEN IN A FOLLOW UP IN THE NEXT FEW WEEKS. INSTRUCTIONS WERE GIVEN, QUESTIONS WERE ANSWERED, AND THE PATIENT EXPRESSED UNDERSTANDING AND AGREES WITH THE PLAN. I, DOUGLAS PEPPER, DOCUMENTED THE ABOVE INFORMATION ACTING A SCRIBE FOR DR. NINO. I HAVE REVIEWED THE ABOVE DOCUMENT, WRITTEN BY DOUGLAS PEPPER SCRIBE AND I VERIFY THAT IT IS ACCURATE. PROCEDURE CODES 29824 INJECT TRIGGER POINT, 1 OR 2 DISPOSITION & COMMUNICATION FOLLOW UP 3 WEEKS ELECTRONICALLY SIGNED BY DAVID NINO MD, MD ON 11/17/2018 AT 08:07 PM EDT DISCLAIMER : THIS IS A VISIT SUMMARY EXTRACTED FROM THE [employer] CHART. IT IS NOT A COPY OF THE [employer] PROGRESS NOTE. JOHNNIE
== END ==
LOC: M PAIN 11:45
PROVIDERS: ATTEND Anesthesiology
DX: M79.18 Myalgia, other site (principal); K21.9 Gastro-esophageal reflux disease without esophagitis; J44.9 Chronic obstructive pulmonary disease, unspecified; G43.709 Chronic migraine without aura, not intractable, without status migrainosus; E66.9 Obesity, unspecified; E28.2 Polycystic ovarian syndrome; L68.0 Hirsutism; E78.5 Hyperlipidemia, unspecified; G25.81 Restless legs syndrome; D50.9 Iron deficiency anemia, unspecified; R53.83 Other fatigue; N80.9 Endometriosis, unspecified; N30.10 Interstitial cystitis (chronic) without hematuria; Z79.891 Long term (current) use of opiate analgesic; Z79.899 Other long term (current) drug therapy; Z88.0 Allergy status to penicillin; Z88.5 Allergy status to narcotic agent; Z88.8 Allergy status to other drugs, medicaments and biological substances; Z88.6 Allergy status to analgesic agent; Z68.39 Body mass index [BMI] 39.0-39.9, adult
CPT/HCPCS: 20552; 36415; 81374; 82607; 83550; 84591; 85652; 86140; G0463

== ENCOUNTER → 2018-11-05 | Outpatient (CLI) | payer MEDICARE, MEDICAID ==
[~2018-11-05] MED LIST changes: -BUPIVACAINE HCL 0.25% 10 ML VIAL As Ordered ONE; -BUPIVACAINE HCL 0.25% 30 ML VIAL As Ordered ONE; -diazePAM 5 MG TAB As Ordered ONE; -oxyCODONE 5MG TAB As Ordered ONE
[2018-11-05 10:52] LABS: C REACTIVE PROTEIN QUANTITATIV 0.54 MG/DL (0.00-0.30); PERCENT SATURATION 10.7 % (13.2-45.0)
== END ==
LOC: M LAB 10:04
PROVIDERS: ATTEND Family Medicine
DX: D50.0 Iron deficiency anemia secondary to blood loss (chronic) (principal); M46.1 Sacroiliitis, not elsewhere classified; L60.3 Nail dystrophy; G62.9 Polyneuropathy, unspecified

== ENCOUNTER 2018-11-28 12:04 | Outpatient (CLI) | payer MEDICARE, MEDICAID ==
[~2018-11-28] VITALS: Ht 162.6 cm; Wt 82.2 kg
[2018-11-28 12:30] VITALS: BP 119/79
[2018-11-28] MEDS ORDERED: IRON SUCROSE 500 MG in NS 250 ML IV ONE (13:00)
[2018-11-28 13:15] VITALS: BP 133/73
[2018-11-28 14:20] VITALS: BP 106/57
[2018-11-28 15:20] VITALS: BP 112/64
[2018-11-28 16:33] VITALS: BP 115/65
== END 2018-11-28 16:50 | disposition home or self-care (01) ==
LOC: M INFU 12:04
PROVIDERS: ATTEND Family Medicine
DX: D50.9 Iron deficiency anemia, unspecified (principal)
CPT/HCPCS: 96365; 96366; J1756

== ENCOUNTER → 2018-12-02 | Outpatient (CLI) | payer MEDICARE, MEDICAID ==
[~2018-12-02] MED LIST changes: +BUPIVACAINE HCL 0.25% 10 ML VIAL As Ordered ONE; +BUPIVACAINE HCL 0.25% 30 ML VIAL As Ordered ONE; +TRIAMCINOLONE ACETONIDE SUSP 40 MG/ML VIAL (J3301) As Ordered ONE
--- NOTE | 2018-12-21 01:20 | ECWPNPC ---
PATIENT NAME: DEEDEE SHEARER : 1975 GENDER: FEMALE VISIT DATE: 12/02/2018 DISCHARGE DATE: 12/02/18 1128 VISIT LOCKED DATE TIME: PHYSICIAN: STARLA CHEATHAM RESOURCE: STARLA CHEATHAM REASON FOR APPOINTMENT 1. POST SIJ HISTORY OF PRESENT ILLNESS HISTORY OF PRESENT ILLNESS: HERE FOR POST PROCEDURE F/U.HAD TPI W/OUT STEROIDS RIGHT LOW BACK ON 11/05/18.REPORTING NO IMPROVEMENT WITH INJECTIONS WITHOUT STEROIDS.AWAITING NOTE FROM [facility] TO PROCEED W INJECTIONS WITH STEROIDS.RATING PAIN VAS 9/10. PAIN THE PATIENT DESCRIBES THE PAIN... FALL RISK SCREENING: SCREENING :NO FALLS REPORTED IN THE LAST YEAR CURRENT MEDICATIONS TAKING GABAPENTIN 300 MG CAPSULE 1 CAP ORALLY 2 CAPSULES IN THE MORNING AND 2 CAPSULES IN THE EVENING; TAKING URSODIOL 300 MG CAPSULE 1 CAP ORALLY DAILY TAKING E-Z SPACER 1 SPACER ICD10: J44.9 DIRECTED WITH PRN ALBUTEROL INHALER TAKING NYSTATIN 216106 UNIT/ML SUSPENSION 4 ML MOUTH/THROAT FOUR TIMES A DAY; SWISH AND SPIT OUT, NOTES: PRN TAKING FERROUS SULFATE 325 MG CAPSULE 1 TABLET ORALLY DAILY WITH ORANGE JUICE TAKING PANTOPRAZOLE SODIUM 40 MG TABLET DELAYED RELEASE 1 TABLET ORALLY BID TAKING ATORVASTATIN CALCIUM 40 MG TABLET 1 TABLET ORALLY DAILY TAKING TIZANIDINE HCL 4 MG TABLET 1 TABLET NEEDED ORALLY TWICE A DAY; DO NOT TAKE IF TAKING BACLOFEN SAME DAY. TAKING ALBUTEROL SULFATE HFA 108 (90 BASE) MCG/ACT AEROSOL SOLUTION 2 PUFFS NEEDED INHALATION EVERY 4 HRS PRN SOB/WHEEZING TAKING MAGNESIUM CHLORIDE - POWDER 2 [id number] (4 TSPS) ORALLY TWICE DAILY NEEDED TAKING BACLOFEN 10 MG TABLET 2 TABLET WITH FOOD OR MILK ORALLY 2 TABS AT BED TIME NEEDED TAKING FLONASE 50 MCG/ACT SUSPENSION 1 SPRAY IN EACH NOSTRIL NASALLY ONCE A DAY TAKING SPIRONOLACTONE 25 MG TABLET 1 TABLET ORALLY ONCE A DAY TAKING TOPIRAMATE 200 MG TABLET 1 1/2 TABLET ORALLY BID TAKING DIHYDROERGOTAMINE MESYLATE 1 MG/ML SOLUTION 1 ML NEEDED INJECTION TWICE A DAY MAX DOSE. 3 TIMES A WEEK TAKING KETOROLAC TROMETHAMINE 60 MG/2ML SOLUTION 1 ML NEEDED INTRAMUSCULAR EVERY 6 HRS TAKING CHLORHEXIDINE GLUCONATE 0.12 % SOLUTION DIRECTED MOUTH/THROAT RINSE MOUTH TWICE DAILY FOR 30 SECONDS AND SPIT OUT TAKING VERAPAMIL HCL ER 180 MG TABLET EXTENDED RELEASE 1 TABLET ORALLY TWICE A DAY TAKING MOBIC 15 MG TABLET 1 TABLET ORALLY ONCE A DAY TAKING OXYCODONE HCL 10 MG TABLET 1 TABLET ORALLY Q 6-8 HRS PRN PAIN MDD=3 TAKING COLACE 100 MG CAPSULE 1 CAPSULE ORALLY BID TAKING VITAMIN D3 2000 UNIT CAPSULE 1 CAPSULE ORALLY ONCE A DAY NOT-TAKING VENOFER 20 MG/ML SOLUTION INFUSE 500 MG PER HOSPITAL PROTOCOL INTRAVENOUS ONCE, NOTES: ALLERGIC REACTION NOT-TAKING PROMETHAZINE HCL 25 MG TABLET 1 TABLET NEEDED ORALLY EVERY 12 HRS PRN NAUSEA NOT-TAKING AMITIZA 24 MCG CAPSULE 1 CAPSULE WITH FOOD ORALLY TWICE A DAY PRN CONSTIPATION NOT-TAKING VITAMIN C ER 1000 MG TABLET EXTENDED RELEASE 1 TABLET ORALLY ONCE A DAY NOT-TAKING AMITIZA 8 MCG CAPSULE 1 CAPSULE WITH FOOD ORALLY PRN TWICE A DAY MEDICATION LIST REVIEWED AND RECONCILED WITH THE PATIENT PAST MEDICAL HISTORY GERD DEGENERATIVE DISC DISEASE HERNIATED DISCS BULGING DISCS ARTHRITIS IN SPINE COPD PER PATIENT CHRONIC MIGRAINES R ANKLE BROKEN L BROKEN FOOT R KNEE SCAR TISSUE HX OF BROKEN COCCYX OBESITY PCOS, HIRSUTISM HYPERLIPIDEMIA RESTLESS LEGS SYNDROME MEMORY ISSUES IRON DEFICIENCY ANEMIA CHRONIC FATIGUE HEAVY MENSTRUAL PERIODS IRREGULAR MENSTRUAL PERIODS ENDOMETRIOSIS INTERSTITIAL CYSTITIS REPORTED HISTORY OF COLONIC POLYPS ELEVATED 24 HR CORTISOL- SEEING DR. GOMEZ ALLERGIES TYLENOL: FEVER ZANTAC: NUMBNESS ANDTINGLING IN HANDS AND SWOLLEN LIPS - ALLERGY HYDROCODONE-ACETAMINOPHEN: FEVER ,NAUSEA - ALLERGY PENICILLIN (FOR ALLERGIES USE ONLY): YEAST INFECTION - ALLERGY SURGICAL HISTORY TONSILLECTOMY 1990 APPENDECTOMY 1977 R KNEE FX 2002 R ANKLE FX 2016 DIAGNOSTIC LAPAROSCOPY WITH REMOVAL OF SCAR TISSUE 2011 COLONOSCOPY/ ENDOSCOPY 09/26/2018 RIGHT ANKLE HARDWARE REMOVED 10/2018 RIGHT ANKLE FX AND REPAIR 2015 FAMILY HISTORY FATHER: , PANCREATITIS MOTHER: , EMPHYSEMA, ASTHMA SIBLINGS: ALIVE, CANCER 3 BROTHER(S) , 7 SISTER(S) - HEALTHY. SISTER, JAYLA, STAGE 3 A LUNG CANCER \\\\\\\\\\\\\\\\\\\\\\\\\\\\\\\\NSISTER, OCTOBER, WITH LEUKEMIA\\\\\\\\\\\\\\\\\\\\\\\\\\\\\\\\NSISTER, YEIMI, UTERINE THAT MATASTISIZE TO LUNGS, LIVER AND KIDNEY\\\\\\\\\\\\\\\\\\\\\\\\\\\\\\\\NSISTER, VALARIE, CERVICAL CA \\\\\\\\\\\\\\\\\\\\\\\\\\\\\\\\NBROTHER, ALYSSA, PROSTATE CA. SOCIAL HISTORY GENERAL: TOBACCO USE ARE YOU A:NONSMOKER NEVER SMOKER HIV / HEP-C SCREENING HIV TEST OFFERED TO PATIENT:YES DATE OFFERED:08/01/2017 TEST ACCEPTED:NO HEP-C TEST OFFERED TO PATIENT:NO REASON:PATIENT DECLINED BROCHURE PROVIDED TO PATIENTYES OTHERS AT HOME: SIBLING, IN-LAW(S). EDUCATION LEVEL OF EDUCATION:COLLEGE DIET: NO MSG ,GLUTEN FREE. LANGUAGE LANGUAGES SPOKEN:STATELESS DOMESTIC VIOLENCE DO YOU FEEL SAFE IN YOUR ENVIRONMENT?YES RECREATIONAL DRUG USE DRUG USE?NO EXERCISE: NONE. 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 NEEDED?NO PAIN CLINIC PFS, CLERGY, PUBLIC HEALTH REFERRALS HAS THE PATIENT BEEN EDUCATED REGARDING HIS/HER PLAN OF CARE?YES HAS THE PATIENT BEEN EDUCATED REGARDING PAIN, THE RISK FOR PAIN, THE IMPORTANCE OF EFFECTIVE PAIN MANAGEMENT, AND THE PAIN ASSESSMENT PROCESS?YES LATEX QUESTIONNAIRE LATEX ALLERGY : HAVE YOU EVER DEVELOPED ANY TYPE OF REACTION AFTER HANDLING LATEX PRODUCTS SUCH RUBBER GLOVES, CONDOMS, DIAPHRAGMS, BALLOONS, SOCKS, OR UNDERWEAR?NO LATEX ALLERGY : HAVE YOU EVER DEVELOPED ANY TYPE OF REACTION DURING OR AFTER DENTAL APPOINTMENT, VAGINAL/RECTAL EXAMINATION, SURGICAL PROCEDURE, OR ANY OTHER EXPOSURE?NO DATE ASKED : 10/09/2018 LATEX RISK : HAVE YOU EVER HAD ANY DIFFICULTY BREATHING OR HIVES AFTER EATING OR HANDLING ANY FRUITS, OR VEGETABLES; SUCH KIWI, BANANAS, STONE FRUITS, OR CHESTNUTSNO LATEX RISK : DO YOU HAVE A PREVIOUS PERSONAL HISTORY OF MORE THAN NINE SURGERIES, SPINA BIFIDA, OR REPEATED CATHERTIZATIONS? NO LATEX RISK : ARE YOU FREQUENTLY EXPOSED TO LATEX PRODUCTS IN YOUR OCCUPATION?NO CAFFEINE CAFFEINE USE?NO ADVANCE DIRECTIVE ADVANCE DIRECTIVE DISCUSSED WITH PATIENT:YES HAS KENNY VELASCO [phone] ANABAPTISM [id number] NONE OTHER MARITAL STATUS: SINGLE. ALCOHOL SCREENING DID YOU HAVE A DRINK CONTAINING ALCOHOL IN THE PAST YEAR?NO POINTS0 INTERPRETATIONNEGATIVE OCCUPATION: UNEMPLOYED. SEXUAL HX HAD SEX IN THE LAST 12 MONTHS (VAGINAL, ORAL, OR ANAL)?NO HAVE YOU EVER HAD AN STD?NO REVIEWED WITH PATIENT 07/31/18 0947 JS08/29/18 REVIEWED WITH PT. AD09/05/18 1315 REVIEWED WITH PT LAS09/09/18 REVIEWED WITH PT LASREVIEWED WITH PATIENT 12/02/18 1033 JS. HOSPITALIZATION/MAJOR DIAGNOSTIC PROCEDURE ABOVE SURGERIES REVIEW OF SYSTEMS REVIEWED BY: PROVIDER: STARLA HURTADO . CONSTITUTIONAL: ANY CHANGE IN YOUR MEDICAL CONDITION? NO . CHILLS NO . FEVER NO . INFECTION: DO YOU HAVE NEW INFECTIONS? NO . DO YOU HAVE HISTORY OF MRSA? NO . MUSCULOSKELETAL: ANY NEW PATTERNS OF PAIN OR NUMBNESS? NO . GASTROENTEROLOGY: ANY NEW CHANGE IN BOWEL CONTROL? YES, STATES CHRONIC CONSTIPATION . GENITOURINARY: ANY NEW CHANGE IN BLADDER CONTROL? NO . IS THERE A CHANCE YOU COULD BE ? NO . HEMATOLOGY/LYMPH: DO YOU TAKE ANY BLOOD THINNERS? (FOR EXAMPLE- COUMADIN, PLAVIX, AGGRENOX, PLATEL, PRADAXA, OR XARELTO) NO . WHEN WAS YOUR LAST DOSE? DATE: TIME: . NEUROLOGY: HAVE YOU FALLEN IN THE PAST 12 MONTHS? NO . ANY NEW EXTREMITY NUMBNESS OR WEAKNESS? YES, STATES NUMBNESS AND TINGLING TO BILATERAL THUMB AND POINTER FINGER. ALSO STATES SHOOTING ELECTRICAL SHOCKS THAT START IN HER THUMB AND SHOOT UP HER ARM . CARDIOLOGY: DO YOU HAVE A PACEMAKER OR DEFIBRILLATOR? NO . RESPIRATORY: HAVE YOU BEEN SICK IN THE PAST WEEK? NO . FEVER NO . FLU LIKE SYMPTOMS? NO . COUGH NO . INTEGUMENTARY: DO YOU HAVE ANY RASHES OR OPEN SORES? NO . ALLERGIC/IMMUNO: ARE YOU ALLERGIC TO IV DYE? NO . ANY NEW ALLERGIES? NO . PSYCHIATRIC: DO YOU HAVE THOUGHTS OF HURTING YOURSELF OR SOMEONE ELSE? NO . ARE YOU ABUSED, NEGLECTED, OR IN AN UNSAFE ENVIRONMENT? NO . ENDOCRINOLOGY: ARE YOU DIABETIC? NO . OTHER: DO YOU NEED ANY PRESCRIPTIONS? YES . IF YES, PLEASE LIST: ____OXYCODONE . ANY NEW PROBLEMS WITH YOUR MEDICATIONS? NO . WHEN DID YOU LAST EAT? ____ . WHEN DID YOU LAST DRINK? ____ . WHAT DID YOU LAST DRINK? ____ . NAME OF PERSON DRIVING YOU HOME? ____ . DO YOU HAVE ANY OTHER QUESTIONS OR CONCERNS YES, STATES NEW SHOOTING ELECTRICAL PAINS STARTING IN HER FINGERS AND SHOOTING UP HER ARMS . VITAL SIGNS WT 196.8 LBS, HT 60 IN, BMI 38.43 INDEX, BP 136/76 MM HG, HR 87 /MIN, RR 18 /MIN, TEMP 98.0 F, OXYGEN SAT % 95%, SAFE IN ENV? (Y/N) YES, NA INITIALS SC 10:20, REVIEWED BY: CHA. EXAMINATION GENERAL EXAMINATION: LUNGS: LUNG SOUNDS ARE CLEAR . HEART: HEART RATE REGULAR . MUSCULOSKELETAL:*, MUSCLE STRENGTH TESTING 5/5 BILATERAL LOWER EXTREMITIES., ,PALPATION: POSITIVE FOR PAIN OVER L/S SPINE. POSITIVE FOR PAIN OVER L/S PARSPINALS.SPECIFIC POINT TENDERNESS OVER RIGHT L4/5-L5/S1 LUMBR FACETS WITH FACET LOADING . DIAGNOSTIC:MRI L/S SPINE 09/18/18. ASSESSMENTS LUMBAR FACET ARTHROPATHY - M47.816 (PRIMARY) TREATMENT LUMBAR FACET ARTHROPATHY CONTINUE TIZANIDINE HCL TABLET, 4 MG, 1 TABLET NEEDED, ORALLY, TWICE A DAY; DO NOT TAKE IF TAKING BACLOFEN SAME DAY. CONTINUE MOBIC TABLET, 15 MG, 1 TABLET, ORALLY, ONCE A DAY REFILL OXYCODONE HCL TABLET, 10 MG, 1 TABLET, ORALLY, Q 6-8 HRS PRN PAIN MDD=3, 30 DAY(S), 90, REFILLS 0 NOTES: RIGHT L4/5-L5/S1 DIAGNOSTIC BLOCK, ISTOP REGISTRY REVIEWED AND DEMONSTRATES COMPLLIANCE. (REF #[id number] ) BRINGS IN MEDICATIONS WHICH IS APPROPRIATE FOR WHAT WAS DISPENSED. RECENT URINE TOXICOLOGY REVIEWED. NO UNAUTHORIZED MEDICATIONS. NO ILLICIT SUBSTANCES AND PRESCRIBED MEDICATIONS WERE PRESENT. URINE TOX TODAY, RISKS AND BENEFITS OF NARCOTIC/OPIOD MEDICATIONS WERE REVIEWED WITH PATIENT - THIS INCLUDES BUT IS NOT LIMITED TO RISK OF DEPENDANCE/DEVELOPMENT OF ADDICTION, MOOD DISTURBANCE AND DEPRESSION, OSTEOPOROSIS, HORMONAL AND LABIDAL CHANGES, RESPIRATORY DEPRESSION AND . PATIENT IS ADVISED NOT TO DRIVE OR DRINK ALCOHOL WHILE ON THESE MEDICATIONS. PROCEDURE CODES FA211 ESTABILISHED PATIENT [facility] CHARGE DISPOSITION & COMMUNICATION FOLLOW UP POST (REASON: RIGHT L4/5-L5/S1 DIAGNOSTIC BLOCK) ELECTRONICALLY SIGNED BY BRYANT IMXON ON 12/18/2018 AT 05:07 PM EDT DISCLAIMER : THIS IS A VISIT SUMMARY EXTRACTED FROM THE [employer] CHART. IT IS NOT A COPY OF THE [employer] PROGRESS NOTE. JOHNNIE
== END ==
LOC: M PAIN 10:15
PROVIDERS: ATTEND Nurse Practitioner Family
DX: M47.816 Spondylosis without myelopathy or radiculopathy, lumbar region (principal); K21.9 Gastro-esophageal reflux disease without esophagitis; J44.9 Chronic obstructive pulmonary disease, unspecified; G43.709 Chronic migraine without aura, not intractable, without status migrainosus; E78.5 Hyperlipidemia, unspecified; G25.81 Restless legs syndrome; Z88.0 Allergy status to penicillin; Z88.5 Allergy status to narcotic agent; Z88.6 Allergy status to analgesic agent; Z88.8 Allergy status to other drugs, medicaments and biological substances; Z79.891 Long term (current) use of opiate analgesic; Z79.899 Other long term (current) drug therapy; R07.89 Other chest pain; D50.0 Iron deficiency anemia secondary to blood loss (chronic); M46.1 Sacroiliitis, not elsewhere classified; L60.3 Nail dystrophy; G62.9 Polyneuropathy, unspecified; R20.0 Anesthesia of skin; R10.13 Epigastric pain
CPT/HCPCS: 96372; G0463; J3420

== ENCOUNTER → 2018-12-03 | Outpatient (CLI) | payer MEDICARE, MEDICAID ==
[~2018-12-03] MED LIST changes: -BUPIVACAINE HCL 0.25% 10 ML VIAL As Ordered ONE; -BUPIVACAINE HCL 0.25% 30 ML VIAL As Ordered ONE; -TRIAMCINOLONE ACETONIDE SUSP 40 MG/ML VIAL (J3301) As Ordered ONE
[2018-12-03 11:11] LABS: ALBUMIN 3.7 GM/DL (3.2-5.2); ALT/SGPT 59 U/L (12-78); BILIRUBIN,TOTAL 0.4 MG/DL (0.2-1.0); BLOOD UREA NITROGEN 11 MG/DL (7-18); C REACTIVE PROTEIN QUANTITATIV < 0.30 MG/DL (0.00-0.30); CALCIUM LEVEL 8.5 MG/DL (8.5-10.1); CARBON DIOXIDE LEVEL 27 MEQ/L (21-32); CHLORIDE LEVEL 111 MEQ/L (98-107); CREATININE FOR GFR 0.73 MG/DL (0.55-1.30); GLOMERULAR FILTRATION RATE > 60.0 (>58); GLUCOSE, FASTING 108 MG/DL (70-100); IRON (FE) 55 UG/DL (50-170); PERCENT SATURATION 15.6 % (13.2-45.0); POTASSIUM SERUM 3.7 MEQ/L (3.5-5.1); SODIUM LEVEL 143 MEQ/L (136-145); TOTAL IRON BINDING CAPACITY 353 UG/DL (250-450); TOTAL PROTEIN 6.2 GM/DL (6.4-8.2)
== END ==
LOC: M LAB 10:22
PROVIDERS: ATTEND Family Medicine
DX: D50.0 Iron deficiency anemia secondary to blood loss (chronic) (principal); R07.89 Other chest pain; R10.13 Epigastric pain

== ENCOUNTER → 2018-12-06 | Outpatient (REF) | payer MEDICARE, MEDICAID ==
[2018-12-06 13:02] LABS: INR 0.91; PROTHROMBIN TIME 12.3 SECONDS (12.1-14.4)
[2018-12-06 13:03] LABS: PARTIAL THROMBOPLASTIN TIME 27.1 SECONDS (25.4-37.6)
== END ==
LOC: M LABDRAW1 11:53
PROVIDERS: ATTEND Physician Assistant
DX: Z01.812 Encounter for preprocedural laboratory examination (principal)

== ENCOUNTER → 2018-12-10 | Outpatient (CLI) | payer MEDICARE, MEDICAID ==
--- NOTE | 2018-12-10 08:42 | REP ---
Clinical: Epigastric pain. Technique: Real time saldaña scale ultrasound examination using curved array transducer. Findings: Liver and pancreas are normal in contour, size, and echogenicity without focal hepatic or pancreatic lesions identified. Gallbladder appears contracted and demonstrates multiple gallstones without wall thickening or pericholecystic fluid. Sonographic Samayoa's sign was elicited during examination. No biliary ductal dilatation is appreciated and the common bile duct measures 4.8 mm diameter. The right kidney is normal in reniform shape without hydronephrosis and measures 10.8 x 5.5 x 5.0 cm. Impression: 1. Cholelithiasis and biliary colic versus possible early acute cholecystitis cannot be excluded. Electronically Signed by Jose Yin MD 12/10/2018 08:34 A
== END ==
LOC: M RAD 08:03
PROVIDERS: ATTEND Family Medicine
DX: K80.00 Calculus of gallbladder with acute cholecystitis without obstruction (principal)

== ENCOUNTER → 2019-01-07 | Outpatient (CLI) | payer MEDICARE, MEDICAID ==
[~2019-01-07] MED LIST changes: +BUPIVACAINE HCL 0.25% 30 ML VIAL As Ordered ONE; +ISOVUE-M 300 61% 15ML VIAL (Q9967) As Ordered ONE; +LIDOCAINE 1% SDV INJ 30 ML VIAL As Ordered ONE
--- NOTE | 2019-01-07 16:52 | REP ---
C-ARM VIEW LUMBAR SPINE: C-ARM views lumbar spine. CLINICAL HISTORY: Pain. Multiple C-ARM views of the lower lumbar spine are performed during injections by Dr. Santos. [place] are seen along the lower lumbar vertebral bodies. 39 seconds of fluoroscopy time utilized. Electronically Signed by Lon Cruz MD 01/08/2019 02:34 P
--- NOTE | 2019-01-20 00:37 | ECWPNPC ---
PATIENT NAME: DEEDEE SHEARER : 1975 GENDER: FEMALE VISIT DATE: 01/07/2019 DISCHARGE DATE: 01/07/19 1510 VISIT LOCKED DATE TIME: PHYSICIAN: DAVID NINO MD RESOURCE: DAVID NINO MD REASON FOR APPOINTMENT 1. BILATERAL L4/5-L5/S1 DIAGNOSTIC HISTORY OF PRESENT ILLNESS HISTORY OF PRESENT ILLNESS: PAIN THE PATIENT DESCRIBES THE PAIN... FALL RISK SCREENING: SCREENING :NO FALLS REPORTED IN THE LAST YEAR CURRENT MEDICATIONS TAKING E-Z SPACER 1 SPACER ICD10: J44.9 DIRECTED WITH PRN ALBUTEROL INHALER TAKING NYSTATIN 433484 UNIT/ML SUSPENSION 4 ML MOUTH/THROAT FOUR TIMES A DAY; SWISH AND SPIT OUT, NOTES: NONE LATELY TAKING FERROUS SULFATE 325 MG CAPSULE 1 TABLET ORALLY DAILY WITH ORANGE JUICE, NOTES: NONE LATELY TAKING ATORVASTATIN CALCIUM 40 MG TABLET 1 TABLET ORALLY DAILY, NOTES: 01/07/19 AM TAKING ALBUTEROL SULFATE HFA 108 (90 BASE) MCG/ACT AEROSOL SOLUTION 2 PUFFS NEEDED INHALATION EVERY 4 HRS PRN SOB/WHEEZING, NOTES: NONE LATELY TAKING MAGNESIUM CHLORIDE - POWDER 2 [id number] (4 TSPS) ORALLY TWICE DAILY NEEDED, NOTES: NONE LATELY TAKING BACLOFEN 10 MG TABLET 2 TABLET WITH FOOD OR MILK ORALLY 2 TABS AT BED TIME NEEDED, NOTES: NONE LATE;LY TAKING TOPIRAMATE 200 MG TABLET 1 1/2 TABLET ORALLY BID, NOTES: NONE LATELY TAKING DIHYDROERGOTAMINE MESYLATE 1 MG/ML SOLUTION 1 ML NEEDED INJECTION TWICE A DAY MAX DOSE. 3 TIMES A WEEK, NOTES: NONE LATELY TAKING KETOROLAC TROMETHAMINE 30 MG/ML SOLUTION 1 ML NEEDED INJECTION EVERY 6 HRS, NOTES: NONE LATELY TAKING CHLORHEXIDINE GLUCONATE 0.12 % SOLUTION DIRECTED MOUTH/THROAT RINSE MOUTH TWICE DAILY FOR 30 SECONDS AND SPIT OUT, NOTES: NONE LATELY TAKING VERAPAMIL HCL ER 180 MG TABLET EXTENDED RELEASE 1 TABLET ORALLY TWICE A DAY, NOTES: NONE LATELY TAKING COLACE 100 MG CAPSULE 1 CAPSULE ORALLY BID, NOTES: NONE LATELY TAKING VITAMIN D3 2000 UNIT CAPSULE 1 CAPSULE ORALLY ONCE A DAY, NOTES: NONE LATELY TAKING TIZANIDINE HCL 4 MG TABLET 1 TABLET NEEDED ORALLY TWICE A DAY; DO NOT TAKE IF TAKING BACLOFEN SAME DAY., NOTES: 01/06/19 TAKING MOBIC 15 MG TABLET 1 TABLET ORALLY ONCE A DAY, NOTES: 01/06/19 TAKING OXYCODONE HCL 10 MG TABLET 1 TABLET ORALLY Q 6-8 HRS PRN PAIN MDD=3, NOTES: 01/06/19 TAKING ALAVERT ALLERGY/SINUS 5-120 MG TABLET EXTENDED RELEASE 12 HOUR 1 TABLET NEEDED ORALLY EVERY 12 HRS, NOTES: NONE LATELY TAKING GABAPENTIN 300 MG CAPSULE 1 CAP ORALLY 2 CAPSULES IN THE MORNING AND 2 CAPSULES IN THE EVENING;, NOTES: 01/07/19 AM TAKING MAY HAVE - - PLEASE DISPENSE WRIST BRACES WITHOUT THUMB SPICA R AND L WRISTS DAILY WHEN SLEEPING. G56.01 & G56.02 TAKING IBUPROFEN 800 MG TABLET 1 TABLET WITH FOOD OR MILK NEEDED ORALLY THREE TIMES DAILY NEEDED FOR MIGRAINE HEADACHE, NOTES: NONE LATELY TAKING PANTOPRAZOLE SODIUM 40 MG TABLET DELAYED RELEASE 1 TABLET ORALLY BID, NOTES: 01/06/19 TAKING URSODIOL 300 MG CAPSULE 1 CAP ORALLY DAILY, NOTES: NONE LATELYY TAKING FLONASE 50 MCG/ACT SUSPENSION 1 SPRAY IN EACH NOSTRIL NASALLY ONCE A DAY, NOTES: NONE LATELY NOT-TAKING SPIRONOLACTONE 25 MG TABLET 1 TABLET ORALLY ONCE A DAY NOT-TAKING PROMETHAZINE HCL 25 MG TABLET 1 TABLET NEEDED ORALLY EVERY 12 HRS PRN NAUSEA NOT-TAKING AMITIZA 24 MCG CAPSULE 1 CAPSULE WITH FOOD ORALLY TWICE A DAY PRN CONSTIPATION NOT-TAKING VITAMIN C ER 1000 MG TABLET EXTENDED RELEASE 1 TABLET ORALLY ONCE A DAY NOT-TAKING AMITIZA 8 MCG CAPSULE 1 CAPSULE WITH FOOD ORALLY PRN TWICE A DAY MEDICATION LIST REVIEWED AND RECONCILED WITH THE PATIENT PAST MEDICAL HISTORY GERD DEGENERATIVE DISC DISEASE HERNIATED DISCS BULGING DISCS ARTHRITIS IN SPINE COPD PER PATIENT CHRONIC MIGRAINES R ANKLE BROKEN L BROKEN FOOT R KNEE SCAR TISSUE HX OF BROKEN COCCYX OBESITY PCOS, HIRSUTISM HYPERLIPIDEMIA RESTLESS LEGS SYNDROME MEMORY ISSUES IRON DEFICIENCY ANEMIA CHRONIC FATIGUE HEAVY MENSTRUAL PERIODS IRREGULAR MENSTRUAL PERIODS ENDOMETRIOSIS INTERSTITIAL CYSTITIS REPORTED HISTORY OF COLONIC POLYPS ELEVATED 24 HR CORTISOL- SEEING DR. GOMEZ ALLERGIES TYLENOL: FEVER ZANTAC: NUMBNESS ANDTINGLING IN HANDS AND SWOLLEN LIPS - ALLERGY HYDROCODONE-ACETAMINOPHEN: FEVER ,NAUSEA - ALLERGY PENICILLIN (FOR ALLERGIES USE ONLY): YEAST INFECTION - ALLERGY VENOFER: JOINT SWELLING - ALLERGY SURGICAL HISTORY TONSILLECTOMY 1990 APPENDECTOMY 1977 R KNEE FX 2002 R ANKLE FX 2016 DIAGNOSTIC LAPAROSCOPY WITH REMOVAL OF SCAR TISSUE 2011 COLONOSCOPY/ ENDOSCOPY 09/26/2018 RIGHT ANKLE HARDWARE REMOVED 10/2018 RIGHT ANKLE FX AND REPAIR 2016 FAMILY HISTORY FATHER: , PANCREATITIS MOTHER: , EMPHYSEMA, ASTHMA SIBLINGS: ALIVE, CANCER 3 BROTHER(S) , 7 SISTER(S) - HEALTHY. SISTER, JAYLA, STAGE 3 A LUNG CANCER \\\\\\\\\\\\\\\\\\\\\\\\\\\\\\\\NSISTER, CRISTAL, WITH LEUKEMIA\\\\\\\\\\\\\\\\\\\\\\\\\\\\\\\\NSISTER, YEIMI, UTERINE THAT MATASTISIZE TO LUNGS, LIVER AND KIDNEY\\\\\\\\\\\\\\\\\\\\\\\\\\\\\\\\NSISTER, VALARIE, CERVICAL CA \\\\\\\\\\\\\\\\\\\\\\\\\\\\\\\\NBROTHER, ALYSSA, PROSTATE CA. SOCIAL HISTORY GENERAL: TOBACCO USE ARE YOU A:NONSMOKER NEVER SMOKER HIV / HEP-C SCREENING HIV TEST OFFERED TO PATIENT:YES DATE OFFERED:08/01/2017 TEST ACCEPTED:NO HEP-C TEST OFFERED TO PATIENT:NO REASON:PATIENT DECLINED BROCHURE PROVIDED TO PATIENTYES OTHERS AT HOME: SIBLING, IN-LAW(S). EDUCATION LEVEL OF EDUCATION:COLLEGE DIET: NO MSG ,GLUTEN FREE. LANGUAGE LANGUAGES SPOKEN:GEORGIAN DOMESTIC VIOLENCE DO YOU FEEL SAFE IN YOUR ENVIRONMENT?YES RECREATIONAL DRUG USE DRUG USE?NO EXERCISE: NONE. 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?NO PAIN CLINIC PFS, CLERGY, PUBLIC HEALTH REFERRALS HAS THE PATIENT BEEN EDUCATED REGARDING HIS/HER PLAN OF CARE?YES HAS THE PATIENT BEEN EDUCATED REGARDING PAIN, THE RISK FOR PAIN, THE IMPORTANCE OF EFFECTIVE PAIN MANAGEMENT, AND THE PAIN ASSESSMENT PROCESS?YES LATEX QUESTIONNAIRE LATEX ALLERGY : HAVE YOU EVER DEVELOPED ANY TYPE OF REACTION AFTER HANDLING LATEX PRODUCTS SUCH RUBBER GLOVES, CONDOMS, DIAPHRAGMS, BALLOONS, SOCKS, OR UNDERWEAR?NO LATEX ALLERGY : HAVE YOU EVER DEVELOPED ANY TYPE OF REACTION DURING OR AFTER DENTAL APPOINTMENT, VAGINAL/RECTAL EXAMINATION, SURGICAL PROCEDURE, OR ANY OTHER EXPOSURE?NO DATE ASKED : 10/09/2018 LATEX RISK : HAVE YOU EVER HAD ANY DIFFICULTY BREATHING OR HIVES AFTER EATING OR HANDLING ANY FRUITS, OR VEGETABLES; SUCH KIWI, BANANAS, STONE FRUITS, OR CHESTNUTSNO LATEX RISK : DO YOU HAVE A PREVIOUS PERSONAL HISTORY OF MORE THAN NINE SURGERIES, SPINA BIFIDA, OR REPEATED CATHERTIZATIONS? NO LATEX RISK : ARE YOU FREQUENTLY EXPOSED TO LATEX PRODUCTS IN YOUR OCCUPATION?NO CAFFEINE CAFFEINE USE?NO ADVANCE DIRECTIVE ADVANCE DIRECTIVE DISCUSSED WITH PATIENT:YES HAS HCP- MALGORZATA VELASCO [phone] BUDDHIST [id number] NONE OTHER MARITAL STATUS: SINGLE. ALCOHOL SCREENING DID YOU HAVE A DRINK CONTAINING ALCOHOL IN THE PAST YEAR?NO POINTS0 INTERPRETATIONNEGATIVE OCCUPATION: UNEMPLOYED. SEXUAL HX HAD SEX IN THE LAST 12 MONTHS (VAGINAL, ORAL, OR ANAL)?NO HAVE YOU EVER HAD AN STD?NO REVIEWED WITH PATIENT 07/31/18 0926 JS08/29/18 REVIEWED WITH PT. AD09/05/18 1315 REVIEWED WITH PT LAS09/09/18 REVIEWED WITH PT NACHOREVIEWED WITH PATIENT 12/02/18 1033 JS. HOSPITALIZATION/MAJOR DIAGNOSTIC PROCEDURE ABOVE SURGERIES REVIEW OF SYSTEMS REVIEWED BY: PROVIDER: . CONSTITUTIONAL: ANY CHANGE IN YOUR MEDICAL CONDITION? NO . CHILLS NO . FEVER NO . INFECTION: DO YOU HAVE NEW INFECTIONS? NO . DO YOU HAVE HISTORY OF MRSA? NO . MUSCULOSKELETAL: ANY NEW PATTERNS OF PAIN OR NUMBNESS? NO . GASTROENTEROLOGY: ANY NEW CHANGE IN BOWEL CONTROL? NO . GENITOURINARY: ANY NEW CHANGE IN BLADDER CONTROL? NO . IS THERE A CHANCE YOU COULD BE ? NO . HEMATOLOGY/LYMPH: DO YOU TAKE ANY BLOOD THINNERS? (FOR EXAMPLE- COUMADIN, PLAVIX, AGGRENOX, PLATEL, PRADAXA, OR XARELTO) NO . WHEN WAS YOUR LAST DOSE? DATE: TIME: . NEUROLOGY: HAVE YOU FALLEN IN THE PAST 12 MONTHS? NO . ANY NEW EXTREMITY NUMBNESS OR WEAKNESS? NO . CARDIOLOGY: DO YOU HAVE A PACEMAKER OR DEFIBRILLATOR? NO . RESPIRATORY: HAVE YOU BEEN SICK IN THE PAST WEEK? NO . FEVER NO . FLU LIKE SYMPTOMS? NO . COUGH NO . INTEGUMENTARY: DO YOU HAVE ANY RASHES OR OPEN SORES? NO . ALLERGIC/IMMUNO: ARE YOU ALLERGIC TO IV DYE? NO . ANY NEW ALLERGIES? NO . PSYCHIATRIC: DO YOU HAVE THOUGHTS OF HURTING YOURSELF OR SOMEONE ELSE? NO . ARE YOU ABUSED, NEGLECTED, OR IN AN UNSAFE ENVIRONMENT? NO . ENDOCRINOLOGY: ARE YOU DIABETIC? NO . OTHER: DO YOU NEED ANY PRESCRIPTIONS? NO . IF YES, PLEASE LIST: ____ . ANY NEW PROBLEMS WITH YOUR MEDICATIONS? NO . WHEN DID YOU LAST EAT? 01/06/19 1800 . WHEN DID YOU LAST DRINK? 01/07/19 0600 . WHAT DID YOU LAST DRINK? WATER . NAME OF PERSON DRIVING YOU HOME? SISTER . DO YOU HAVE ANY OTHER QUESTIONS OR CONCERNS NO . VITAL SIGNS WT 202.2 LBS, HT 60 IN, BMI 39.49 INDEX, BP 140/67 MM HG, HR 99 /MIN, RR 18 /MIN, TEMP 98.4 F, OXYGEN SAT % 95%, NA INITIALS AW 1336, REVIEWED BY: EM. ASSESSMENTS SPONDYLOSIS OF LUMBAR REGION WITHOUT MYELOPATHY OR RADICULOPATHY - M47.816 (PRIMARY) SPONDYLOSIS OF LUMBOSACRAL REGION WITHOUT MYELOPATHY OR RADICULOPATHY - M47.817 TREATMENT SPONDYLOSIS OF LUMBAR REGION WITHOUT MYELOPATHY OR RADICULOPATHY SMC FACET BLOCK (PAIN)[id number] PROCEDURES PN LUMBAR FACET BLOCK DIAGNOSTIC PRE PROCEDURE DIAGNOSIS LUMBAR SPONDYLOSIS, LUMBOSACRAL SPONDYLOSIS POST PROCEDURE DIAGNOSIS LUMBAR SPONDYLOSIS, LUMBOSACRAL SPONDYLOSIS PROCEDURE BILATERAL L4-L5 AND BILATERAL L5-S1 FACET BLOCK DIAGNOSTIC NUMBER [address] DAVID NINO BOAT PULLER NONE ANESTHESIA LOCAL PRE PROCEDURE NOTE THE PATIENT WITH HISTORY OF CHRONIC LOW BACK PAIN. I EVALUATED THE PATIENT AND REVIEWED THE CHART. I WENT OVER THE RISKS, ALTERNATIVES, AND BENEFITS ASSOCIATED WITH THIS PROCEDURE. THE PATIENT WOULD LIKE TO PROCEED AND GAVE CONSENT TO PERFORM THE PROCEDURE. AGREED WITH THE PATIENT WE ARE DOING THIS PROCEDURE TO DETERMINE IF THE PATIENT IS A CANDIDATE FOR A RADIOFREQUENCY ABLATION OF THE FACETS JOINTS. THE PATIENT DENIES UNEXPLAINABLE WEIGHT LOSS, FEVER, CHILLS, OR NEW CHANGES IN URINARY OR BOWEL CONTROL DESCRIPTION OF PROCEDURE THE PATIENT WAS BROUGHT TO THE PROCEDURE ROOM AND PLACED IN THE PRONE POSITION. THE LUMBOSACRAL AREA WAS CLEANED WITH CHLORAPREP SOLUTION AND DRAPED ASEPTICALLY. THE PROCEDURE WAS DONE UNDER STERILE CONDITIONS. I CHECKED LATERALITY AND THE LEVEL WHERE THE PROCEDURE WAS GOING TO BE PERFORMED WITH THE PATIENT AND THE SUPPORTING STAFF AT THE MOMENT OF THE TIME OUT IN THE PROCEDURE ROOM. UNDER FLUOROSCOPIC GUIDANCE, TARGETS WERE SELECTED AT THE INTERSECTION OF THE RIGHT AND LEFT TRANSVERSE PROCESS OF L4, L5 AND ALA OF S1 WITH ITS RESPECTIVE SUPERIOR ARTICULAR PROCESS. LIDOCAINE WAS USED TO NUMB THE SKIN AND THE SUBCUTANEOUS TISSUE BELOW IT. SPINAL NEEDLE, 22-GAUGE WAS ADVANCED UNDER FLUOROSCOPIC GUIDANCE AND FOLLOWING PATIENT FEEDBACK UNTIL THE TARGETS WERE REACHED. POSITION OF THE NEEDLES WAS VERIFIED WITH AP AND LATERAL VIEWS. AFTER PROPER POSITION OF THE NEEDLES WAS ACHIEVED, ISOVUE-M DYE 30% 0.1 ML WAS INJECTED AT EACH SITE SHOWING ADEQUATE SPREAD OF THE DYE. THEN A SOLUTION OF 0.4 ML OF BUPIVACAINE 0.25% WAS INJECTED AT EACH SITE. THERE WAS NO EVIDENCE OF BLOOD, PARESTHESIA OR CEREBROSPINAL FLUID DURING THE PROCEDURE. THE PATIENT WAS SENT TO THE RECOVERY ROOM. THE PATIENT WAS MOVING THE EXTREMITIES AND DOING WELL. THERE WAS NO COMPLICATION DURING THE PROCEDURE. FLUOROSCOPY TIME WAS 39 SECONDS POST PROCEDURE NOTE THE PATIENT WILL DOCUMENT HIS PAIN LEVEL AND RESPONSE TO THIS PROCEDURE EVERY 30 MINUTES. THE PATIENT WILL BE SEEN IN A FOLLOW UP IN THE NEXT FEW WEEKS. FURTHER DETERMINATION FOR HIS CASE WILL BE DONE AT THE NEXT VISIT. INSTRUCTIONS WERE GIVEN, QUESTIONS WERE ANSWERED, AND THE PATIENT EXPRESSED UNDERSTANDING AND AGREED WITH THE PLAN. I, DOUGLAS PEPPER, DOCUMENTED THE ABOVE INFORMATION ACTING A SCRIBE FOR DR. NINO. I HAVE REVIEWED THE ABOVE DOCUMENT, WRITTEN BY DOUGLAS PEPPER SCRIBYamile AND I VERIFY THAT IT IS ACCURATE. PROCEDURE CODES 57363 INJ PARAVERT F JNT L/S 1 LEV, MODIFIERS: 50 [id number] INJ PARAVERT F JNT L/S 2 LEV, MODIFIERS: 50 [id number] RADXPS IN END [id number] PXD DISPOSITION & COMMUNICATION FOLLOW UP 3 WEEKS ELECTRONICALLY SIGNED BY DAVID NINO MD, MD ON 01/19/2019 AT 07:22 PM EDT DISCLAIMER : THIS IS A VISIT SUMMARY EXTRACTED FROM THE [employer] CHART. IT IS NOT A COPY OF THE [employer] PROGRESS NOTE. MTDD
== END ==
LOC: M PAIN 13:00
PROVIDERS: ATTEND Anesthesiology
DX: M47.816 Spondylosis without myelopathy or radiculopathy, lumbar region (principal); M47.817 Spondylosis without myelopathy or radiculopathy, lumbosacral region; K21.9 Gastro-esophageal reflux disease without esophagitis; J44.9 Chronic obstructive pulmonary disease, unspecified; G43.709 Chronic migraine without aura, not intractable, without status migrainosus; E66.9 Obesity, unspecified; E28.2 Polycystic ovarian syndrome; E78.5 Hyperlipidemia, unspecified; G25.81 Restless legs syndrome; D50.9 Iron deficiency anemia, unspecified; R53.82 Chronic fatigue, unspecified; N92.0 Excessive and frequent menstruation with regular cycle; N92.6 Irregular menstruation, unspecified; N80.9 Endometriosis, unspecified; Z90.49 Acquired absence of other specified parts of digestive tract; Z79.1 Long term (current) use of non-steroidal anti-inflammatories (NSAID); Z79.891 Long term (current) use of opiate analgesic; Z79.899 Other long term (current) drug therapy; Z88.0 Allergy status to penicillin; Z88.6 Allergy status to analgesic agent; Z88.5 Allergy status to narcotic agent; Z88.8 Allergy status to other drugs, medicaments and biological substances
CPT/HCPCS: 64493; 64494; Q9967

== ENCOUNTER → 2019-01-29 | Outpatient (CLI) | payer MEDICARE, MEDICAID ==
[~2019-01-29] MED LIST changes: -BUPIVACAINE HCL 0.25% 30 ML VIAL As Ordered ONE; +DICL75TA PO; +HM V4000 PO; +IBUP-1114 PO; -ISOVUE-M 300 61% 15ML VIAL (Q9967) As Ordered ONE; +KETO60IN IM; -LIDOCAINE 1% SDV INJ 30 ML VIAL As Ordered ONE; +MM S100C PO; +PHEN-239 PO; +PROM50TA4 PO; -STOO100C PO; +TOPA100T12 PO; +TOPA200T7 PO; +URSO300C3 PO; +[UNRECOGNIZED DRUG - CODE] IM
--- NOTE | 2019-02-11 00:25 | ECWPNPC ---
PATIENT NAME: DEEDEE SHEARER : 1975 GENDER: FEMALE VISIT DATE: 01/29/2019 DISCHARGE DATE: 01/29/19 1224 VISIT LOCKED DATE TIME: PHYSICIAN: STARLA CHEATHAM RESOURCE: STARLA CHEATHAM REASON FOR APPOINTMENT 1. POST PROCEDUIRE HISTORY OF PRESENT ILLNESS HISTORY OF PRESENT ILLNESS: HERE FOR POST PROCEDURE F/U.HAD BILAT. LUMBAR DX FACET BLOCKS ON 01/08/19.REPORTING INCREASED VAGINAL BLEEDING AND MIGRAINE HEADACHE SINCE PROCEDURE. PAIN THE PATIENT DESCRIBES THE PAIN... FALL RISK SCREENING: SCREENING :NO FALLS REPORTED IN THE LAST YEAR CURRENT MEDICATIONS TAKING E-Z SPACER 1 SPACER ICD10: J44.9 DIRECTED WITH PRN ALBUTEROL INHALER TAKING NYSTATIN [id number] UNIT/ML SUSPENSION 4 ML MOUTH/THROAT FOUR TIMES A DAY; SWISH AND SPIT OUT TAKING FERROUS SULFATE 325 MG CAPSULE 1 TABLET ORALLY DAILY WITH ORANGE JUICE TAKING ATORVASTATIN CALCIUM 40 MG TABLET 1 TABLET ORALLY DAILY TAKING ALBUTEROL SULFATE HFA 108 (90 BASE) MCG/ACT AEROSOL SOLUTION 2 PUFFS NEEDED INHALATION EVERY 4 HRS PRN SOB/WHEEZING TAKING MAGNESIUM CHLORIDE - POWDER 2 ZIV=973BL (4 TSPS) ORALLY TWICE DAILY NEEDED TAKING BACLOFEN 10 MG TABLET 2 TABLET WITH FOOD OR MILK ORALLY 2 TABS AT BED TIME NEEDED TAKING TOPIRAMATE 200 MG TABLET 1 1/2 TABLET ORALLY BID TAKING DIHYDROERGOTAMINE MESYLATE 1 MG/ML SOLUTION 1 ML NEEDED INJECTION TWICE A DAY MAX DOSE. 3 TIMES A WEEK TAKING KETOROLAC TROMETHAMINE 30 MG/ML SOLUTION 1 ML NEEDED INJECTION EVERY 6 HRS TAKING CHLORHEXIDINE GLUCONATE 0.12 % SOLUTION DIRECTED MOUTH/THROAT RINSE MOUTH TWICE DAILY FOR 30 SECONDS AND SPIT OUT TAKING VERAPAMIL HCL ER 180 MG TABLET EXTENDED RELEASE 1 TABLET ORALLY TWICE A DAY TAKING COLACE 100 MG CAPSULE 1 CAPSULE ORALLY BID TAKING VITAMIN D3 2000 UNIT CAPSULE 1 CAPSULE ORALLY ONCE A DAY TAKING TIZANIDINE HCL 4 MG TABLET 1 TABLET NEEDED ORALLY TWICE A DAY; DO NOT TAKE IF TAKING BACLOFEN SAME DAY. TAKING MOBIC 15 MG TABLET 1 TABLET ORALLY ONCE A DAY TAKING ALAVERT ALLERGY/SINUS 5-120 MG TABLET EXTENDED RELEASE 12 HOUR 1 TABLET NEEDED ORALLY EVERY 12 HRS TAKING GABAPENTIN 300 MG CAPSULE 1 CAP ORALLY 2 CAPSULES IN THE MORNING AND 2 CAPSULES IN THE EVENING; TAKING MAY HAVE - - PLEASE DISPENSE WRIST BRACES WITHOUT THUMB SPICA R AND L WRISTS DAILY WHEN SLEEPING. G56.01 & G56.02 TAKING IBUPROFEN 800 MG TABLET 1 TABLET WITH FOOD OR MILK NEEDED ORALLY THREE TIMES DAILY NEEDED FOR MIGRAINE HEADACHE TAKING PANTOPRAZOLE SODIUM 40 MG TABLET DELAYED RELEASE 1 TABLET ORALLY BID TAKING URSODIOL 300 MG CAPSULE 1 CAP ORALLY DAILY TAKING FLONASE 50 MCG/ACT SUSPENSION 1 SPRAY IN EACH NOSTRIL NASALLY ONCE A DAY TAKING OXYCODONE HCL 10 MG TABLET 1 TABLET ORALLY Q 6-8 HRS PRN PAIN MDD=3 NOT-TAKING SPIRONOLACTONE 25 MG TABLET 1 TABLET ORALLY ONCE A DAY NOT-TAKING PROMETHAZINE HCL 25 MG TABLET 1 TABLET NEEDED ORALLY EVERY 12 HRS PRN NAUSEA NOT-TAKING AMITIZA 24 MCG CAPSULE 1 CAPSULE WITH FOOD ORALLY TWICE A DAY PRN CONSTIPATION NOT-TAKING VITAMIN C ER 1000 MG TABLET EXTENDED RELEASE 1 TABLET ORALLY ONCE A DAY NOT-TAKING AMITIZA 8 MCG CAPSULE 1 CAPSULE WITH FOOD ORALLY PRN TWICE A DAY MEDICATION LIST REVIEWED AND RECONCILED WITH THE PATIENT PAST MEDICAL HISTORY GERD DEGENERATIVE DISC DISEASE HERNIATED DISCS BULGING DISCS ARTHRITIS IN SPINE COPD PER PATIENT CHRONIC MIGRAINES R ANKLE BROKEN L BROKEN FOOT R KNEE SCAR TISSUE HX OF BROKEN COCCYX OBESITY PCOS, HIRSUTISM HYPERLIPIDEMIA RESTLESS LEGS SYNDROME MEMORY ISSUES IRON DEFICIENCY ANEMIA CHRONIC FATIGUE HEAVY MENSTRUAL PERIODS IRREGULAR MENSTRUAL PERIODS ENDOMETRIOSIS INTERSTITIAL CYSTITIS REPORTED HISTORY OF COLONIC POLYPS ELEVATED 24 HR CORTISOL- SEEING DR. GOMEZ ALLERGIES TYLENOL: FEVER ZANTAC: NUMBNESS ANDTINGLING IN HANDS AND SWOLLEN LIPS - ALLERGY HYDROCODONE-ACETAMINOPHEN: FEVER ,NAUSEA - ALLERGY PENICILLIN (FOR ALLERGIES USE ONLY): YEAST INFECTION - ALLERGY VENOFER: JOINT SWELLING - ALLERGY SURGICAL HISTORY TONSILLECTOMY 1990 APPENDECTOMY 1977 R KNEE FX 2002 R ANKLE FX 2016 DIAGNOSTIC LAPAROSCOPY WITH REMOVAL OF SCAR TISSUE 2011 COLONOSCOPY/ ENDOSCOPY 09/26/2018 RIGHT ANKLE HARDWARE REMOVED 10/2018 RIGHT ANKLE FX AND REPAIR 2015 FAMILY HISTORY FATHER: , PANCREATITIS MOTHER: , EMPHYSEMA, ASTHMA SIBLINGS: ALIVE, CANCER 3 BROTHER(S) , 7 SISTER(S) - HEALTHY. SISTER, JAYLA, STAGE 3 A LUNG CANCER \\\\\\\\\\\\\\\\\\\\\\\\\\\\\\\\NSISTER, OCTOBER, WITH LEUKEMIA\\\\\\\\\\\\\\\\\\\\\\\\\\\\\\\\NSISTER, YEIMI, UTERINE THAT MATASTISIZE TO LUNGS, LIVER AND KIDNEY\\\\\\\\\\\\\\\\\\\\\\\\\\\\\\\\NSISTER, VALARIE, CERVICAL CA \\\\\\\\\\\\\\\\\\\\\\\\\\\\\\\\NBROTHER, ALYSSA, PROSTATE CA. SOCIAL HISTORY GENERAL: TOBACCO USE ARE YOU A:NONSMOKER NEVER SMOKER HIV / HEP-C SCREENING HIV TEST OFFERED TO PATIENT:YES DATE OFFERED:08/01/2017 TEST ACCEPTED:NO HEP-C TEST OFFERED TO PATIENT:NO REASON:PATIENT DECLINED BROCHURE PROVIDED TO PATIENTYES OTHERS AT HOME: SIBLING, IN-LAW(S). EDUCATION LEVEL OF EDUCATION:COLLEGE DIET: NO MSG ,GLUTEN FREE. LANGUAGE LANGUAGES SPOKEN:[place] DOMESTIC VIOLENCE DO YOU FEEL SAFE IN YOUR ENVIRONMENT?YES RECREATIONAL DRUG USE DRUG USE?NO EXERCISE: NONE. 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 DEVICES?NO MEDICAL RECORD CLERK NEEDED?NO PAIN CLINIC PFS, CLERGY, PUBLIC HEALTH REFERRALS HAS THE PATIENT BEEN EDUCATED REGARDING HIS/HER PLAN OF CARE?YES HAS THE PATIENT BEEN EDUCATED REGARDING PAIN, THE RISK FOR PAIN, THE IMPORTANCE OF EFFECTIVE PAIN MANAGEMENT, AND THE PAIN ASSESSMENT PROCESS?YES LATEX QUESTIONNAIRE LATEX ALLERGY : HAVE YOU EVER DEVELOPED ANY TYPE OF REACTION AFTER HANDLING LATEX PRODUCTS SUCH RUBBER GLOVES, CONDOMS, DIAPHRAGMS, BALLOONS, SOCKS, OR UNDERWEAR?NO LATEX ALLERGY : HAVE YOU EVER DEVELOPED ANY TYPE OF REACTION DURING OR AFTER DENTAL APPOINTMENT, VAGINAL/RECTAL EXAMINATION, SURGICAL PROCEDURE, OR ANY OTHER EXPOSURE?NO DATE ASKED : 10/09/2018 LATEX RISK : HAVE YOU EVER HAD ANY DIFFICULTY BREATHING OR HIVES AFTER EATING OR HANDLING ANY FRUITS, OR VEGETABLES; SUCH KIWI, BANANAS, STONE FRUITS, OR CHESTNUTSNO LATEX RISK : DO YOU HAVE A PREVIOUS PERSONAL HISTORY OF MORE THAN NINE SURGERIES, SPINA BIFIDA, OR REPEATED CATHERIZATIONS? NO LATEX RISK : ARE YOU FREQUENTLY EXPOSED TO LATEX PRODUCTS IN YOUR OCCUPATION?NO CAFFEINE CAFFEINE USE?NO ADVANCE DIRECTIVE ADVANCE DIRECTIVE DISCUSSED WITH PATIENT:YES HAS HCP- MALGORZATA MIRIAM ROD [phone] LATTER DAY [id number] NONE OTHER MARITAL STATUS: SINGLE. ALCOHOL SCREENING DID YOU HAVE A DRINK CONTAINING ALCOHOL IN THE PAST YEAR?NO POINTS0 INTERPRETATIONNEGATIVE OCCUPATION: UNEMPLOYED. SEXUAL HX HAD SEX IN THE LAST 12 MONTHS (VAGINAL, ORAL, OR ANAL)?NO HAVE YOU EVER HAD AN STD?NO REVIEWED WITH PATIENT 07/31/18 09 JS08/29/18 REVIEWED WITH PT. AD09/05/18 1315 REVIEWED WITH PT LAS09/09/18 REVIEWED WITH PT LASREVIEWED WITH PATIENT 12/02/18 1033 JS. HOSPITALIZATION/MAJOR DIAGNOSTIC PROCEDURE ABOVE SURGERIES REVIEW OF SYSTEMS REVIEWED BY: PROVIDER: STARLA HURTADO . CONSTITUTIONAL: ANY CHANGE IN YOUR MEDICAL CONDITION? NO . CHILLS NO . FEVER NO . INFECTION: DO YOU HAVE NEW INFECTIONS? NO . DO YOU HAVE HISTORY OF MRSA? NO . MUSCULOSKELETAL: ANY NEW PATTERNS OF PAIN OR NUMBNESS? NO . GASTROENTEROLOGY: ANY NEW CHANGE IN BOWEL CONTROL? NO . GENITOURINARY: ANY NEW CHANGE IN BLADDER CONTROL? YES, RARELY INCONTINENCE SINCE LUMBAR FACET BLOCK DIAGNOSTIC INJECTION 01/07/19 AND PT C/O VAGINAL SPOTTING SINCE PROCEDURE . IS THERE A CHANCE YOU COULD BE ? NO . HEMATOLOGY/LYMPH: DO YOU TAKE ANY BLOOD THINNERS? (FOR EXAMPLE- COUMADIN, PLAVIX, AGGRENOX, PLATEL, PRADAXA, OR XARELTO) NO . WHEN WAS YOUR LAST DOSE? DATE: TIME: . NEUROLOGY: HAVE YOU FALLEN IN THE PAST 12 MONTHS? NO . ANY NEW EXTREMITY NUMBNESS OR WEAKNESS? NO . CARDIOLOGY: DO YOU HAVE A PACEMAKER OR DEFIBRILLATOR? NO . RESPIRATORY: HAVE YOU BEEN SICK IN THE PAST WEEK? NO . FEVER NO . FLU LIKE SYMPTOMS? NO . COUGH NO . INTEGUMENTARY: DO YOU HAVE ANY RASHES OR OPEN SORES? NO . ALLERGIC/IMMUNO: ARE YOU ALLERGIC TO IV DYE? NO . ANY NEW ALLERGIES? NO . PSYCHIATRIC: DO YOU HAVE THOUGHTS OF HURTING YOURSELF OR SOMEONE ELSE? NO . ARE YOU ABUSED, NEGLECTED, OR IN AN UNSAFE ENVIRONMENT? NO . ENDOCRINOLOGY: ARE YOU DIABETIC? NO . OTHER: DO YOU NEED ANY PRESCRIPTIONS? YES, OXYCODONE DUE THIS SUNDAY . IF YES, PLEASE LIST: ____ . ANY NEW PROBLEMS WITH YOUR MEDICATIONS? NO . WHEN DID YOU LAST EAT? ____ . WHEN DID YOU LAST DRINK? ____ . WHAT DID YOU LAST DRINK? ____ . NAME OF PERSON DRIVING YOU HOME? ____ . DO YOU HAVE ANY OTHER QUESTIONS OR CONCERNS NO . VITAL SIGNS WT 203.0 LBS, HT 60 IN, BMI 39.64 INDEX, BP 105/68 MM HG, HR 91 /MIN, RR 18 /MIN, TEMP 98.0 F, OXYGEN SAT % 97%, NA INITIALS AW 1131, REVIEWED BY: EM. EXAMINATION GENERAL EXAMINATION: GENERAL ALERT,NO DISTRESS . PSYCH AFFECT NORMAL . LUNGS: LUNG SOUNDS ARE CLEAR . HEART: HEART RATE REGULAR . MUSCULOSKELETAL:MST 5/5 BILAT. LOWER EXTREMITIES , TRIGGER POINTS:, ELICITED WITH PALPATION OVER LUMBAR PARAVERTEBRAL MUSCLES R>L RESTRICTION OF ROM IN THIS AREA. LUMBAR SACRAL SPINE TENDERNESS RIGHT SIJ . DIAGNOSTIC TESTS REVIEWED CT L/S [id number] . ASSESSMENTS SACROILIITIS - M46.1 (PRIMARY) MYALGIA, OTHER SITE - M79.18 TREATMENT SACROILIITIS REFILL OXYCODONE HCL TABLET, 10 MG, 1 TABLET, ORALLY, Q 6-8 HRS PRN PAIN MDD=3, 30 DAY(S), 90, REFILLS 0 NOTES: RIGHT SIJ VS TPI, ISTOP REGISTRY REVIEWED AND DEMONSTRATES COMPLLIANCE. (REF # ) BRINGS IN MEDICATIONS WHICH IS APPROPRIATE FOR WHAT WAS DISPENSED. RECENT URINE TOXICOLOGY REVIEWED. NO UNAUTHORIZED MEDICATIONS. NO ILLICIT SUBSTANCES AND PRESCRIBED MEDICATIONS WERE PRESENT. , RISKS AND BENEFITS OF NARCOTIC/OPIOD MEDICATIONS WERE REVIEWED WITH PATIENT - THIS INCLUDES BUT IS NOT LIMITED TO RISK OF DEPENDANCE/DEVELOPMENT OF ADDICTION, MOOD DISTURBANCE AND DEPRESSION, OSTEOPOROSIS, HORMONAL AND LABIDAL CHANGES, RESPIRATORY DEPRESSION AND . PATIENT IS ADVISED NOT TO DRIVE OR DRINK ALCOHOL WHILE ON THESE MEDICATIONS. PROCEDURE CODES FA211 ESTABILISHED PATIENT [facility] FACILITY CHARGE DISPOSITION & COMMUNICATION FOLLOW UP POST (REASON: RIGHT SIJ VS TPI) ELECTRONICALLY SIGNED BY BRYANT MIXON ON 02/10/2019 AT 10:58 AM EDT DISCLAIMER : THIS IS A VISIT SUMMARY EXTRACTED FROM THE [employer] CHART. IT IS NOT A COPY OF THE [employer] PROGRESS NOTE. JOHNNIE
== END ==
LOC: M PAIN 11:00
PROVIDERS: ATTEND Nurse Practitioner Family
DX: M46.1 Sacroiliitis, not elsewhere classified (principal); M79.18 Myalgia, other site; K21.9 Gastro-esophageal reflux disease without esophagitis; J44.9 Chronic obstructive pulmonary disease, unspecified; G43.709 Chronic migraine without aura, not intractable, without status migrainosus; E66.9 Obesity, unspecified; E28.2 Polycystic ovarian syndrome; L68.0 Hirsutism; E78.5 Hyperlipidemia, unspecified; G25.81 Restless legs syndrome; D50.9 Iron deficiency anemia, unspecified; R53.82 Chronic fatigue, unspecified; N92.1 Excessive and frequent menstruation with irregular cycle; N30.10 Interstitial cystitis (chronic) without hematuria; Z86.010 Personal history of colon polyps; Z79.1 Long term (current) use of non-steroidal anti-inflammatories (NSAID); Z79.891 Long term (current) use of opiate analgesic; Z79.899 Other long term (current) drug therapy; Z88.0 Allergy status to penicillin; Z88.5 Allergy status to narcotic agent; Z88.8 Allergy status to other drugs, medicaments and biological substances

== ENCOUNTER → 2019-01-30 | Outpatient (CLI) | payer MEDICARE, MEDICAID ==
[~2019-01-30] MED LIST changes: +BUPIVACAINE HCL 0.25% 30 ML VIAL As Ordered ONE; -DICL75TA PO; -HM V4000 PO; -IBUP-1114 PO; +ISOVUE-M 200 41% 20ML VIAL (Q9966) As Ordered ONE; -KETO60IN IM; +LIDOCAINE 1% SDV INJ 30 ML VIAL As Ordered ONE; -PHEN-239 PO; -PROM50TA4 PO; -TOPA100T12 PO; -TOPA200T7 PO; +TRIAMCINOLONE ACETONIDE SUSP 40 MG/ML VIAL (J3301) As Ordered ONE; -URSO300C3 PO; -[UNRECOGNIZED DRUG - CODE] IM; +diazePAM 5 MG TAB As Ordered ONE; +oxyCODONE 5MG TAB As Ordered ONE
--- NOTE | 2019-01-30 19:02 | REP ---
Partial SI joint series: Two views. History: SI joint injection procedure for pain. 39 seconds of fluoroscopy time is reported. Findings: A sequence of two last image hold fluoroscopically obtained spot radiographs of the left SI joint document needle position and contrast injection associated with the injection procedure. Electronically Signed by Yasmany Subramanian MD 01/31/2019 08:05 A
--- NOTE | 2019-02-07 00:04 | ECWPNPC ---
PATIENT NAME: DEEDEE SHEARER : 1975 GENDER: FEMALE VISIT DATE: 01/30/2019 DISCHARGE DATE: 01/30/19 1639 VISIT LOCKED DATE TIME: PHYSICIAN: DAVID NINO MD RESOURCE: DAVID NINO MD REASON FOR APPOINTMENT 1. SACROILIAC JOINT INJECTION PER DR Aldana HISTORY OF PRESENT ILLNESS HISTORY OF PRESENT ILLNESS: PAIN THE PATIENT DESCRIBES THE PAIN... FALL RISK SCREENING: SCREENING :NO FALLS REPORTED IN THE LAST YEAR CURRENT MEDICATIONS TAKING E-Z SPACER 1 SPACER ICD10: J44.9 DIRECTED WITH PRN ALBUTEROL INHALER TAKING FERROUS SULFATE 325 MG CAPSULE 1 TABLET ORALLY DAILY WITH ORANGE JUICE, NOTES: 01/30 1000 TAKING ATORVASTATIN CALCIUM 40 MG TABLET 1 TABLET ORALLY DAILY, NOTES: 01/30 1000 TAKING ALBUTEROL SULFATE HFA 108 (90 BASE) MCG/ACT AEROSOL SOLUTION 2 PUFFS NEEDED INHALATION EVERY 4 HRS PRN SOB/WHEEZING, NOTES: NONE RECENT TAKING MAGNESIUM CHLORIDE - POWDER 2 KBI=004II (4 TSPS) ORALLY TWICE DAILY NEEDED, NOTES: NONE RECENT TAKING DIHYDROERGOTAMINE MESYLATE 1 MG/ML SOLUTION 1 ML NEEDED INJECTION TWICE A DAY MAX DOSE. 3 TIMES A WEEK, NOTES: NONE RECENT TAKING KETOROLAC TROMETHAMINE 30 MG/ML SOLUTION 1 ML NEEDED INJECTION EVERY 6 HRS, NOTES: NONE RECENT TAKING CHLORHEXIDINE GLUCONATE 0.12 % SOLUTION DIRECTED MOUTH/THROAT RINSE MOUTH TWICE DAILY FOR 30 SECONDS AND SPIT OUT, NOTES: 01/29 1000 TAKING VERAPAMIL HCL ER 180 MG TABLET EXTENDED RELEASE 1 TABLET ORALLY TWICE A DAY, NOTES: 01/30 1000 TAKING COLACE 100 MG CAPSULE 1 CAPSULE ORALLY BID, NOTES: 01/29 1000 TAKING VITAMIN D3 2000 UNIT CAPSULE 1 CAPSULE ORALLY ONCE A DAY, NOTES: 01/30 1000 TAKING ALAVERT ALLERGY/SINUS 5-120 MG TABLET EXTENDED RELEASE 12 HOUR 1 TABLET NEEDED ORALLY EVERY 12 HRS, NOTES: NONE RECENT TAKING MAY HAVE - - PLEASE DISPENSE WRIST BRACES WITHOUT THUMB SPICA R AND L WRISTS DAILY WHEN SLEEPING. G56.01 & G56.02 TAKING IBUPROFEN 800 MG TABLET 1 TABLET WITH FOOD OR MILK NEEDED ORALLY THREE TIMES DAILY NEEDED FOR MIGRAINE HEADACHE, NOTES: LAST WEEK TAKING PANTOPRAZOLE SODIUM 40 MG TABLET DELAYED RELEASE 1 TABLET ORALLY BID, NOTES: 01/30 1000 TAKING URSODIOL 300 MG CAPSULE 1 CAP ORALLY DAILY, NOTES: NONE RECENT TAKING FLONASE 50 MCG/ACT SUSPENSION 1 SPRAY IN EACH NOSTRIL NASALLY ONCE A DAY, NOTES: NONE RECENT TAKING OXYCODONE HCL 10 MG TABLET 1 TABLET ORALLY Q 6-8 HRS PRN PAIN MDD=3, NOTES: 01/29 1900 TAKING TOPIRAMATE 200 MG TABLET 1 1/2 TABLET ORALLY BID, NOTES: 01/30 1000 TAKING TIZANIDINE HCL 4 MG TABLET 1 TABLET NEEDED ORALLY TWICE A DAY; DO NOT TAKE IF TAKING BACLOFEN SAME DAY., NOTES: 2 1/2 WEEKS AGO TAKING GABAPENTIN 600 MG TABLET 1 CAP ORALLY THREE TIMES DAILY, NOTES: 01/30 1000 TAKING PHENTERMINE HCL 15 MG CAPSULE 2 CAPSULE ORALLY ONCE A DAY, NOTES: HASN'T STARTED YET TAKING BACLOFEN 10 MG TABLET 2 TABLET WITH FOOD OR MILK ORALLY 2 TABS AT BED TIME NEEDED, NOTES: TAKES 1 TAB 01/29 1900 TAKING PROMETHAZINE HCL 25 MG TABLET 1 TABLET NEEDED ORALLY EVERY 12 HRS PRN NAUSEA, NOTES: 01/30 1000 TAKING VITAMIN C ER 1000 MG TABLET EXTENDED RELEASE 1 TABLET ORALLY ONCE A DAY, NOTES: NONE RECENT NOT-TAKING NYSTATIN [id number] UNIT/ML SUSPENSION 4 ML MOUTH/THROAT FOUR TIMES A DAY; SWISH AND SPIT OUT, NOTES: 01/29 1000 NOT-TAKING KETOROLAC TROMETHAMINE 10 MG TABLET 1 TABLET WITH FOOD OR MILK NEEDED ORALLY EVERY 6 HRS NEEDED FOR HEADACHE OR BACK PAIN NOT-TAKING SPIRONOLACTONE 25 MG TABLET 1 TABLET ORALLY ONCE A DAY NOT-TAKING AMITIZA 24 MCG CAPSULE 1 CAPSULE WITH FOOD ORALLY TWICE A DAY PRN CONSTIPATION NOT-TAKING AMITIZA 8 MCG CAPSULE 1 CAPSULE WITH FOOD ORALLY PRN TWICE A DAY MEDICATION LIST REVIEWED AND RECONCILED WITH THE PATIENT PAST MEDICAL HISTORY GERD DEGENERATIVE DISC DISEASE HERNIATED DISCS BULGING DISCS ARTHRITIS IN SPINE COPD PER PATIENT CHRONIC MIGRAINES R ANKLE BROKEN L BROKEN FOOT R KNEE SCAR TISSUE HX OF BROKEN COCCYX OBESITY PCOS, HIRSUTISM HYPERLIPIDEMIA RESTLESS LEGS SYNDROME MEMORY ISSUES IRON DEFICIENCY ANEMIA CHRONIC FATIGUE HEAVY MENSTRUAL PERIODS IRREGULAR MENSTRUAL PERIODS ENDOMETRIOSIS INTERSTITIAL CYSTITIS REPORTED HISTORY OF COLONIC POLYPS ELEVATED 24 HR CORTISOL- SEEING DR. GOMEZ [facility]CC[facility] NEURALGIA CHRONIC PAIN DUE TO TRAUMA MYALGIA CONSTIPATION HYPOCALCEMIA ALLERGIES TYLENOL: FEVER - ALLERGY ZANTAC: NUMBNESS ANDTINGLING IN HANDS AND SWOLLEN LIPS - ALLERGY HYDROCODONE-ACETAMINOPHEN: FEVER ,NAUSEA - ALLERGY PENICILLIN (FOR ALLERGIES USE ONLY): YEAST INFECTION VENOFER: JOINT SWELLING - ALLERGY SURGICAL HISTORY TONSILLECTOMY 1990 APPENDECTOMY 1977 R KNEE FX 2002 R ANKLE FX 2016 DIAGNOSTIC LAPAROSCOPY WITH REMOVAL OF SCAR TISSUE 2011 COLONOSCOPY/ ENDOSCOPY 09/26/2018 RIGHT ANKLE HARDWARE REMOVED 10/2018 RIGHT ANKLE FX AND REPAIR 2015 TOOTH EXTRACTION 1998 FAMILY HISTORY FATHER: , PANCREATITIS MOTHER: , EMPHYSEMA, ASTHMA SIBLINGS: ALIVE, CANCER 3 BROTHER(S) , 7 SISTER(S) - HEALTHY. SISTER, JAYLA, STAGE 3 A LUNG CANCER \\\\\\\\\\\\\\\\\\\\\\\\\\\\\\\\NSISTER, CRISTAL, WITH LEUKEMIA\\\\\\\\\\\\\\\\\\\\\\\\\\\\\\\\NSISTER, YEIMI, UTERINE THAT MATASTISIZE TO LUNGS, LIVER AND KIDNEY\\\\\\\\\\\\\\\\\\\\\\\\\\\\\\\\NSISTER, VALARIE, CERVICAL CA \\\\\\\\\\\\\\\\\\\\\\\\\\\\\\\\NBROTHER, ALYSSA, PROSTATE CA. SOCIAL HISTORY GENERAL: TOBACCO USE ARE YOU A:NONSMOKER NEVER SMOKER HIV / HEP-C SCREENING HIV TEST OFFERED TO PATIENT:YES DATE OFFERED:08/01/2017 TEST ACCEPTED:NO HEP-C TEST OFFERED TO PATIENT:NO REASON:PATIENT DECLINED BROCHURE PROVIDED TO PATIENTYES OTHERS AT HOME: SIBLING, IN-LAW(S). EDUCATION LEVEL OF EDUCATION:COLLEGE DIET: NO MSG ,GLUTEN FREE. LANGUAGE LANGUAGES SPOKEN:ARGENTINE DOMESTIC VIOLENCE DO YOU FEEL SAFE IN YOUR ENVIRONMENT?YES RECREATIONAL DRUG USE DRUG USE?NO EXERCISE: NONE. LEARNING BARRIERS / SPECIAL NEEDS BARRIERS TO LEARNING?NO HEARING IMPAIRED?NO VISION IMPAIRED?NO COGNITIVELY IMPAIRED?NO READINESS TO LEARN?YES LEARNING PREFERENCES?YES :DEMONSTRATION/VERBAL INSTRUCTION LEARNING CAPABILITIES PRESENT?YES EMOTIONAL BARRIERS?NO SPECIAL DEVICES?NO WOOD FENCE ERECTOR NEEDED?NO PAIN CLINIC PFS, CLERGY, PUBLIC HEALTH REFERRALS HAS THE PATIENT BEEN EDUCATED REGARDING HIS/HER PLAN OF CARE?YES HAS THE PATIENT BEEN EDUCATED REGARDING PAIN, THE RISK FOR PAIN, THE IMPORTANCE OF EFFECTIVE PAIN MANAGEMENT, AND THE PAIN ASSESSMENT PROCESS?YES LATEX QUESTIONNAIRE LATEX ALLERGY : HAVE YOU EVER DEVELOPED ANY TYPE OF REACTION AFTER HANDLING LATEX PRODUCTS SUCH RUBBER GLOVES, CONDOMS, DIAPHRAGMS, BALLOONS, SOCKS, OR UNDERWEAR?YES - PLEASE INDICATE :OTHER (DOCUMENT IN NOTES) SOME BANDAIDS LATEX ALLERGY : HAVE YOU EVER DEVELOPED ANY TYPE OF REACTION DURING OR AFTER DENTAL APPOINTMENT, VAGINAL/RECTAL EXAMINATION, SURGICAL PROCEDURE, OR ANY OTHER EXPOSURE?NO LATEX RISK : HAVE YOU EVER HAD ANY DIFFICULTY BREATHING OR HIVES AFTER EATING OR HANDLING ANY FRUITS, OR VEGETABLES; SUCH KIWI, BANANAS, STONE FRUITS, OR CHESTNUTSNO LATEX RISK : DO YOU HAVE A PREVIOUS PERSONAL HISTORY OF MORE THAN NINE SURGERIES, SPINA BIFIDA, OR REPEATED CATHERIZATIONS? NO LATEX RISK : ARE YOU FREQUENTLY EXPOSED TO LATEX PRODUCTS IN YOUR OCCUPATION?NO DATE ASKED : 01/30/2019 CAFFEINE CAFFEINE USE?NO ADVANCE DIRECTIVE ADVANCE DIRECTIVE DISCUSSED WITH PATIENT:YES HAS HCP- MALGORZATA VELASCO [phone] ORIENTAL ORTHODOX [id number] NONE OTHER MARITAL STATUS: SINGLE. ALCOHOL SCREENING DID YOU HAVE A DRINK CONTAINING ALCOHOL IN THE PAST YEAR?NO POINTS0 INTERPRETATIONNEGATIVE OCCUPATION: UNEMPLOYED. SEXUAL HX HAD SEX IN THE LAST 12 MONTHS (VAGINAL, ORAL, OR ANAL)?NO HAVE YOU EVER HAD AN STD?NO REVIEWED WITH PATIENT 07/31/18 0947 08/29/18 REVIEWED WITH PT. AD09/05/18 1315 REVIEWED WITH PT LAS09/09/18 REVIEWED WITH PT LASREVIEWED WITH PATIENT 12/02/18 1033 JS01/30/19 REVIEWED WITH PT. AD. HOSPITALIZATION/MAJOR DIAGNOSTIC PROCEDURE ABOVE SURGERIES REVIEW OF SYSTEMS REVIEWED BY: PROVIDER: . CONSTITUTIONAL: ANY CHANGE IN YOUR MEDICAL CONDITION? NO . CHILLS NO . FEVER NO . INFECTION: DO YOU HAVE NEW INFECTIONS? NO . DO YOU HAVE HISTORY OF MRSA? NO . MUSCULOSKELETAL: ANY NEW PATTERNS OF PAIN OR NUMBNESS? NO . GASTROENTEROLOGY: ANY NEW CHANGE IN BOWEL CONTROL? NO . GENITOURINARY: ANY NEW CHANGE IN BLADDER CONTROL? NO . IS THERE A CHANCE YOU COULD BE ? NO . HEMATOLOGY/LYMPH: DO YOU TAKE ANY BLOOD THINNERS? (FOR EXAMPLE- COUMADIN, PLAVIX, AGGRENOX, PLATEL, PRADAXA, OR XARELTO) NO . WHEN WAS YOUR LAST DOSE? DATE: TIME: . NEUROLOGY: HAVE YOU FALLEN IN THE PAST 12 MONTHS? NO . ANY NEW EXTREMITY NUMBNESS OR WEAKNESS? NO . CARDIOLOGY: DO YOU HAVE A PACEMAKER OR DEFIBRILLATOR? NO . RESPIRATORY: HAVE YOU BEEN SICK IN THE PAST WEEK? NO . FEVER NO . FLU LIKE SYMPTOMS? NO . COUGH NO . INTEGUMENTARY: DO YOU HAVE ANY RASHES OR OPEN SORES? NO . ALLERGIC/IMMUNO: ARE YOU ALLERGIC TO IV DYE? NO . ANY NEW ALLERGIES? NO . PSYCHIATRIC: DO YOU HAVE THOUGHTS OF HURTING YOURSELF OR SOMEONE ELSE? NO . ARE YOU ABUSED, NEGLECTED, OR IN AN UNSAFE ENVIRONMENT? NO . ENDOCRINOLOGY: ARE YOU DIABETIC? NO . OTHER: DO YOU NEED ANY PRESCRIPTIONS? NO . IF YES, PLEASE LIST: ____ . ANY NEW PROBLEMS WITH YOUR MEDICATIONS? NO . WHEN DID YOU LAST EAT? 01/29 1330 . WHEN DID YOU LAST DRINK? 01/30 0900 . WHAT DID YOU LAST DRINK? WATER . NAME OF PERSON DRIVING YOU HOME? SUNDAY . DO YOU HAVE ANY OTHER QUESTIONS OR CONCERNS NO PT HAS NOT HAD ANY VACCINES IN THE PAST 30 DAYS . VITAL SIGNS WT 204.4 LBS, HT 60 IN, BMI 39.91 INDEX, BP 130/59 MM HG, HR 86 /MIN, RR 18 /MIN, TEMP 98.1 F, OXYGEN SAT % 96%, SAFE IN ENV? (Y/N) Y, NA INITIALS AW 1335, REVIEWED BY: AD. COFFEY SACROILIITIS - M46.1 (PRIMARY) TREATMENT SACROILIITIS [facility] FLUORO GUIDANCE (PAIN)[id number] PROCEDURES PN SI PRE PROCEDURE DIAGNOSIS SACROILIITIS, SACROILIAC JOINT DYSFUNCTION POST PROCEDURE DIAGNOSIS SACROILIITIS, SACROILIAC JOINT DYSFUNCTION PROCEDURE RIGHT SACROILIAC JOINT BLOCK SURGEON DR. DAVID NINO WRAPPER CASER NONE ANESTHESIA LOCAL PRE PROCEDURE NOTE PATIENT WITH HISTORY OF CHRONIC LOW BACK PAIN. I EVALUATED THE PATIENT AND REVIEWED THE CHART. I WENT OVER THE RISKS, ALTERNATIVES, AND BENEFITS ASSOCIATED WITH THIS PROCEDURE. THE PATIENT WOULD LIKE TO PROCEED AND GAVE CONSENT TO PERFORM THE PROCEDURE. THE PATIENT DENIES UNEXPLAINABLE WEIGHT LOSS, FEVER, CHILLS, OR NEW CHANGES IN URINARY OR BOWEL CONTROL DESCRIPTION OF PROCEDURE THE PATIENT WAS BROUGHT TO THE PROCEDURE ROOM AND PLACED IN THE PRONE POSITION. THE LUMBOSACRAL AREA WAS CLEANED WITH CHLORAPREP SOLUTION AND DRAPED ASEPTICALLY. THE PROCEDURE WAS DONE UNDER STERILE CONDITIONS. I CHECKED LATERALITY AND THE LEVEL WHERE THE PROCEDURE WAS GOING TO BE PERFORMED WITH THE PATIENT AND THE SUPPORTING STAFF AT THE MOMENT OF THE TIME OUT IN THE PROCEDURE ROOM. UNDER FLUOROSCOPIC GUIDANCE, TARGET POINT WAS SELECTED AT THE LOWER BORDER OF THE RIGHT SACROILIAC JOINT. TARGET POINT WAS SELECTED AFTER MEDIAL ROTATION AND TILT OF THE MAGNIFIER OF THE C-ARM. LIDOCAINE WAS USED TO NUMB THE SKIN AND SUBCUTANEOUS TISSUE BELOW IT. A SPINAL NEEDLE, 22-GAUGE, WAS ADVANCED UNDER FLUOROSCOPIC GUIDANCE AND FOLLOWING PATIENT FEEDBACK UNTIL THE TARGET AREA WAS TOUCHED. THE POSITION OF THE NEEDLE WAS VERIFIED WITH AP AND LATERAL VIEWS. AFTER PROPER POSITION OF THE NEEDLE WAS ACHIEVED, ISOVUE M DYE WAS INJECTED SHOWING SPREAD OF THE DYE. THEN, A SOLUTION OF 20 MG OF KENALOG WAS INJECTED IN RIGHT JOINT WITH 3 ML OF BUPIVACAINE 0.125%. THERE WAS NO EVIDENCE OF BLOOD, PARESTHESIA OR CEREBROSPINAL FLUID DURING THE PROCEDURE. THE PATIENT WAS SENT TO THE RECOVERY ROOM. THE PATIENT WAS MOVING THE EXTREMITIES AND DOING WELL. THERE WAS NO COMPLICATION DURING THE PROCEDURE. FLUOROSCOPY TIME WAS 39 SECONDS POST PROCEDURE NOTE THE PATIENT WILL BE SEEN IN A FOLLOW UP IN THE NEXT FEW WEEKS. INSTRUCTIONS WERE GIVEN, QUESTIONS WERE ANSWERED, AND THE PATIENT EXPRESSED UNDERSTANDING AND AGREED WITH THE PLAN. I, CESARIO BREWER, DOCUMENTED THE ABOVE INFORMATION ACTING A SCRIBE FOR DR. NINO. I HAVE REVIEWED THE ABOVE DOCUMENT, WRITTEN BY CESARIO HAWLEYIBYamile AND I VERIFY THAT IT IS ACCURATE. PROCEDURE CODES 6045F RADXPS IN END [id number] PXD [id number] INJECT SACROILIAC JOINT, MODIFIERS: RT DISPOSITION & COMMUNICATION FOLLOW UP 3 WEEKS ELECTRONICALLY SIGNED BY DAVID NINO MD, MD ON 02/06/2019 AT 04:46 PM EDT DISCLAIMER : THIS IS A VISIT SUMMARY EXTRACTED FROM THE [employer] CHART. IT IS NOT A COPY OF THE [employer] PROGRESS NOTE. MTDD
== END ==
LOC: M PAIN 13:30
PROVIDERS: ATTEND Anesthesiology
DX: M46.1 Sacroiliitis, not elsewhere classified (principal); K21.9 Gastro-esophageal reflux disease without esophagitis; J44.9 Chronic obstructive pulmonary disease, unspecified; G43.709 Chronic migraine without aura, not intractable, without status migrainosus; E66.9 Obesity, unspecified; L68.0 Hirsutism; E28.2 Polycystic ovarian syndrome; E78.5 Hyperlipidemia, unspecified; G25.81 Restless legs syndrome; D50.9 Iron deficiency anemia, unspecified; R53.82 Chronic fatigue, unspecified; N30.10 Interstitial cystitis (chronic) without hematuria; K59.00 Constipation, unspecified; E83.51 Hypocalcemia; N92.1 Excessive and frequent menstruation with irregular cycle; N80.9 Endometriosis, unspecified; Z87.81 Personal history of (healed) traumatic fracture; Z86.010 Personal history of colon polyps; Z90.49 Acquired absence of other specified parts of digestive tract; Z79.891 Long term (current) use of opiate analgesic; Z79.899 Other long term (current) drug therapy; Z88.0 Allergy status to penicillin; Z88.5 Allergy status to narcotic agent; Z88.8 Allergy status to other drugs, medicaments and biological substances
CPT/HCPCS: G0260; G0463; J3301; Q9966

== ENCOUNTER → 2019-02-05 | Outpatient (CLI) | payer MEDICARE, MEDICAID ==
[~2019-02-05] MED LIST changes: -BUPIVACAINE HCL 0.25% 30 ML VIAL As Ordered ONE; -ISOVUE-M 200 41% 20ML VIAL (Q9966) As Ordered ONE; -LIDOCAINE 1% SDV INJ 30 ML VIAL As Ordered ONE; -TRIAMCINOLONE ACETONIDE SUSP 40 MG/ML VIAL (J3301) As Ordered ONE; -diazePAM 5 MG TAB As Ordered ONE; -oxyCODONE 5MG TAB As Ordered ONE
--- NOTE | 2019-02-05 18:42 | REP ---
Pelvic sonography: History: Irregular menstrual bleeding. Findings: Transabdominal and transvaginal scanning are performed. A normal size uterus is seen measuring 6.3 x 3.3 x 4.1 cm. Endometrial echo is 1.1 cm thick. There is a slightly hyperechoic oval-shaped area in the uterine endometrium measuring 1.3 x 0.7 x 1.5 cm. I cannot exclude an endometrial polyp. No myometrial lesion is seen. The visualized bladder thao are smooth. Normal ovaries seen bilaterally. Right ovarian dimensions are 3.1 x 2.1 x 2.2 cm. Left ovary measures 3.0 x 2.1 x 2.4 cm. Impression: Question endometrial polyp. Otherwise negative pelvic sonography. Electronically Signed by Yasmany Subramanian MD 02/05/2019 06:50 P
== END ==
LOC: M RAD 12:30
PROVIDERS: ATTEND Family Medicine
DX: N92.6 Irregular menstruation, unspecified (principal)

== ENCOUNTER → 2019-02-12 | Outpatient (CLI) | payer MEDICARE, MEDICAID ==
--- NOTE | 2019-02-21 23:51 | ECWPNPC ---
PATIENT NAME: DEEDEE SHEARER : 1975 GENDER: FEMALE VISIT DATE: 02/12/2019 DISCHARGE DATE: 02/12/19847 VISIT LOCKED DATE TIME: PHYSICIAN: DAVID NINO MD RESOURCE: DAVID NINO MD REASON FOR APPOINTMENT 1. PER DR Aldana HISTORY OF PRESENT ILLNESS HISTORY OF PRESENT ILLNESS: PAIN THE PATIENT DESCRIBES THE PAIN... 44 YEAR OLD FEMALE PATIENT WITH A HISTORY OF CHRONIC LOW BACK PAIN. THE PATIENT DESCRIBES THE PAIN ACHING, STABBING, SHOOTING, SORE, TENDER, SHARP, SHOCKING, BRIEF, INTERMITTENT, AND CONTINUOUS WITH A PAIN SCORE OF 6-9/10 DEPENDING ON PHYSICAL ACTIVITY. THE PATIENT SAYS HER MAIN PAIN IS IN HER LOWER BACK, BUT SHE ALSO EXPERIENCES CHRONIC MIGRAINES WELL. THE PATIENT RECEIVED A RIGHT SACROILIAC JOINT INJECTION ON 01/30/2019, WHICH SHE SAYS HAS HELPED WITH HER PAIN, HOWEVER THE PAIN COMES BACK DURING HER DAILY ACTIVITIES, SUCH CLEANING HER HOUSE, COOKING, AND GROCERY SHOPPING. THE PATIENT RECEIVED A BILATERAL DIAGNOSTIC FACET BLOCK ON 01/07/2019 THAT DID NOT OFFER ANY PAIN RELIEF, CAUSED BLEEDING FOR 5 WEEKS, AND TRIGGERED MIGRAINES FOR HER. PATIENT DENIES UNEXPLAINABLE WEIGHT LOSS, FEVER, CHILLS, NEW CHANGES ON HER URINARY OR BOWEL CONTROL. FALL RISK SCREENING: SCREENING :NO FALLS REPORTED IN THE LAST YEAR CURRENT MEDICATIONS TAKING E-Z SPACER 1 SPACER ICD10: J44.9 DIRECTED WITH PRN ALBUTEROL INHALER TAKING FERROUS SULFATE 325 MG CAPSULE 1 TABLET ORALLY DAILY WITH ORANGE JUICE TAKING ATORVASTATIN CALCIUM 40 MG TABLET 1 TABLET ORALLY DAILY TAKING ALBUTEROL SULFATE HFA 108 (90 BASE) MCG/ACT AEROSOL SOLUTION 2 PUFFS NEEDED INHALATION EVERY 4 HRS PRN SOB/WHEEZING TAKING MAGNESIUM CHLORIDE - POWDER 2 MLM=593ZA (4 TSPS) ORALLY TWICE DAILY NEEDED TAKING DIHYDROERGOTAMINE MESYLATE 1 MG/ML SOLUTION 1 ML NEEDED INJECTION TWICE A DAY MAX DOSE. 3 TIMES A WEEK TAKING KETOROLAC TROMETHAMINE 30 MG/ML SOLUTION 1 ML NEEDED INJECTION EVERY 6 HRS TAKING CHLORHEXIDINE GLUCONATE 0.12 % SOLUTION DIRECTED MOUTH/THROAT RINSE MOUTH TWICE DAILY FOR 30 SECONDS AND SPIT OUT TAKING VERAPAMIL HCL ER 180 MG TABLET EXTENDED RELEASE 1 TABLET ORALLY TWICE A DAY TAKING COLACE 100 MG CAPSULE 1 CAPSULE ORALLY BID TAKING VITAMIN D3 2000 UNIT CAPSULE 1 CAPSULE ORALLY ONCE A DAY TAKING ALAVERT ALLERGY/SINUS 5-120 MG TABLET EXTENDED RELEASE 12 HOUR 1 TABLET NEEDED ORALLY EVERY 12 HRS TAKING MAY HAVE - - PLEASE DISPENSE WRIST BRACES WITHOUT THUMB SPICA R AND L WRISTS DAILY WHEN SLEEPING. G56.01 & G56.02 TAKING IBUPROFEN 800 MG TABLET 1 TABLET WITH FOOD OR MILK NEEDED ORALLY THREE TIMES DAILY NEEDED FOR MIGRAINE HEADACHE TAKING PANTOPRAZOLE SODIUM 40 MG TABLET DELAYED RELEASE 1 TABLET ORALLY BID TAKING URSODIOL 300 MG CAPSULE 1 CAP ORALLY DAILY TAKING FLONASE 50 MCG/ACT SUSPENSION 1 SPRAY IN EACH NOSTRIL NASALLY ONCE A DAY TAKING OXYCODONE HCL 10 MG TABLET 1 TABLET ORALLY Q 6-8 HRS PRN PAIN MDD=3 TAKING TOPIRAMATE 200 MG TABLET 1 1/2 TABLET ORALLY BID TAKING TIZANIDINE HCL 4 MG TABLET 1 TABLET NEEDED ORALLY TWICE A DAY; DO NOT TAKE IF TAKING BACLOFEN SAME DAY. TAKING GABAPENTIN 600 MG TABLET 1 CAP ORALLY THREE TIMES DAILY TAKING BACLOFEN 10 MG TABLET 2 TABLET WITH FOOD OR MILK ORALLY 2 TABS AT BED TIME NEEDED TAKING PROMETHAZINE HCL 25 MG TABLET 1 TABLET NEEDED ORALLY EVERY 12 HRS PRN NAUSEA TAKING VITAMIN C ER 1000 MG TABLET EXTENDED RELEASE 1 TABLET ORALLY ONCE A DAY TAKING PHENTERMINE HCL 37.5 MG TABLET 1 CAPSULE ORALLY ONCE A DAY, NOTES: PLEASE CANCEL 15 MG CAPS TAKING INSULIN SYRINGE-NEEDLE U-100 25G X 1 MISCELLANEOUS USE FOR 1 MG INJECTIONS FOR DIHYDROERGOTERMINE INTRAMUSCULARLY UP TO 3 TIMES IN ONE DAY OR 8 TIMES IN ONE WEEK NOT-TAKING PHENTERMINE HCL 15 MG CAPSULE 2 CAPSULE ORALLY ONCE A DAY NOT-TAKING NYSTATIN [id number] UNIT/ML SUSPENSION 4 ML MOUTH/THROAT FOUR TIMES A DAY; SWISH AND SPIT OUT, NOTES: 01/29 1000 NOT-TAKING KETOROLAC TROMETHAMINE 10 MG TABLET 1 TABLET WITH FOOD OR MILK NEEDED ORALLY EVERY 6 HRS NEEDED FOR HEADACHE OR BACK PAIN NOT-TAKING SPIRONOLACTONE 25 MG TABLET 1 TABLET ORALLY ONCE A DAY NOT-TAKING AMITIZA 24 MCG CAPSULE 1 CAPSULE WITH FOOD ORALLY TWICE A DAY PRN CONSTIPATION NOT-TAKING AMITIZA 8 MCG CAPSULE 1 CAPSULE WITH FOOD ORALLY PRN TWICE A DAY MEDICATION LIST REVIEWED AND RECONCILED WITH THE PATIENT PAST MEDICAL HISTORY GERD DEGENERATIVE DISC DISEASE HERNIATED DISCS BULGING DISCS ARTHRITIS IN SPINE COPD PER PATIENT CHRONIC MIGRAINES R ANKLE BROKEN L BROKEN FOOT R KNEE SCAR TISSUE HX OF BROKEN COCCYX OBESITY PCOS, HIRSUTISM HYPERLIPIDEMIA RESTLESS LEGS SYNDROME MEMORY ISSUES IRON DEFICIENCY ANEMIA CHRONIC FATIGUE HEAVY MENSTRUAL PERIODS IRREGULAR MENSTRUAL PERIODS ENDOMETRIOSIS INTERSTITIAL CYSTITIS REPORTED HISTORY OF COLONIC POLYPS ELEVATED 24 HR CORTISOL- SEEING DR. [facility] CHRONIC PAIN DUE TO TRAUMA MYALGIA CONSTIPATION HYPOCALCEMIA ALLERGIES TYLENOL: FEVER - ALLERGY ZANTAC: NUMBNESS ANDTINGLING IN HANDS AND SWOLLEN LIPS - ALLERGY HYDROCODONE-ACETAMINOPHEN: FEVER ,NAUSEA - ALLERGY PENICILLIN (FOR ALLERGIES USE ONLY): YEAST INFECTION VENOFER: JOINT SWELLING - ALLERGY SURGICAL HISTORY TONSILLECTOMY 1990 APPENDECTOMY 1977 R KNEE FX 2002 R ANKLE FX 2016 DIAGNOSTIC LAPAROSCOPY WITH REMOVAL OF SCAR TISSUE 2011 COLONOSCOPY/ ENDOSCOPY 09/26/2018 RIGHT ANKLE HARDWARE REMOVED 10/2018 RIGHT ANKLE FX AND REPAIR 2015 TOOTH EXTRACTION 1998 FAMILY HISTORY FATHER: , PANCREATITIS MOTHER: , EMPHYSEMA, ASTHMA SIBLINGS: ALIVE, CANCER 3 BROTHER(S) , 7 SISTER(S) - HEALTHY. SISTER, JAYLA, STAGE 3 A LUNG CANCER \\\\\\\\\\\\\\\\\\\\\\\\\\\\\\\\NSISTER, CRISTAL, WITH LEUKEMIA\\\\\\\\\\\\\\\\\\\\\\\\\\\\\\\\NSISTER, YEIMI, UTERINE THAT MATASTISIZE TO LUNGS, LIVER AND KIDNEY\\\\\\\\\\\\\\\\\\\\\\\\\\\\\\\\NSISTER, VALARIE, CERVICAL CA \\\\\\\\\\\\\\\\\\\\\\\\\\\\\\\\NBROTHER, ALYSSA, PROSTATE CA. SOCIAL HISTORY GENERAL: TOBACCO USE ARE YOU A:NONSMOKER NEVER SMOKER HIV / HEP-C SCREENING HIV TEST OFFERED TO PATIENT:YES DATE OFFERED:08/01/2017 TEST ACCEPTED:NO HEP-C TEST OFFERED TO PATIENT:NO REASON:PATIENT DECLINED BROCHURE PROVIDED TO PATIENTYES OTHERS AT HOME: SIBLING, IN-LAW(S). EDUCATION LEVEL OF EDUCATION:COLLEGE DIET: NO MSG ,GLUTEN FREE. LANGUAGE LANGUAGES SPOKEN:SPANISH DOMESTIC VIOLENCE DO YOU FEEL SAFE IN YOUR ENVIRONMENT?YES RECREATIONAL DRUG USE DRUG USE?NO EXERCISE: NONE. LEARNING BARRIERS / SPECIAL NEEDS BARRIERS TO LEARNING?NO HEARING IMPAIRED?NO VISION IMPAIRED?NO COGNITIVELY IMPAIRED?NO READINESS TO LEARN?YES LEARNING PREFERENCES?YES :DEMONSTRATION/VERBAL INSTRUCTION LEARNING CAPABILITIES PRESENT?YES EMOTIONAL BARRIERS?NO SPECIAL DEVICES?NO DENTAL APPLIANCE FIXER NEEDED?NO PAIN CLINIC PFS, CLERGY, PUBLIC HEALTH REFERRALS HAS THE PATIENT BEEN EDUCATED REGARDING HIS/HER PLAN OF CARE?YES HAS THE PATIENT BEEN EDUCATED REGARDING PAIN, THE RISK FOR PAIN, THE IMPORTANCE OF EFFECTIVE PAIN MANAGEMENT, AND THE PAIN ASSESSMENT PROCESS?YES LATEX QUESTIONNAIRE LATEX ALLERGY : HAVE YOU EVER DEVELOPED ANY TYPE OF REACTION AFTER HANDLING LATEX PRODUCTS SUCH RUBBER GLOVES, CONDOMS, DIAPHRAGMS, BALLOONS, SOCKS, OR UNDERWEAR?YES - PLEASE INDICATE :OTHER (DOCUMENT IN NOTES) SOME BANDAIDS LATEX ALLERGY : HAVE YOU EVER DEVELOPED ANY TYPE OF REACTION DURING OR AFTER DENTAL APPOINTMENT, VAGINAL/RECTAL EXAMINATION, SURGICAL PROCEDURE, OR ANY OTHER EXPOSURE?NO LATEX RISK : HAVE YOU EVER HAD ANY DIFFICULTY BREATHING OR HIVES AFTER EATING OR HANDLING ANY FRUITS, OR VEGETABLES; SUCH KIWI, BANANAS, STONE FRUITS, OR CHESTNUTSNO LATEX RISK : DO YOU HAVE A PREVIOUS PERSONAL HISTORY OF MORE THAN NINE SURGERIES, SPINA BIFIDA, OR REPEATED CATHERIZATIONS? NO LATEX RISK : ARE YOU FREQUENTLY EXPOSED TO LATEX PRODUCTS IN YOUR OCCUPATION?NO DATE ASKED : 01/30/2019 CAFFEINE CAFFEINE USE?NO ADVANCE DIRECTIVE ADVANCE DIRECTIVE DISCUSSED WITH PATIENT:YES HAS HCP- MALGORZATA VELASCO [phone] [facility] [id number] NONE OTHER MARITAL STATUS: SINGLE. ALCOHOL SCREENING DID YOU HAVE A DRINK CONTAINING ALCOHOL IN THE PAST YEAR?NO POINTS0 INTERPRETATIONNEGATIVE OCCUPATION: UNEMPLOYED. SEXUAL HX HAD SEX IN THE LAST 12 MONTHS (VAGINAL, ORAL, OR ANAL)?NO HAVE YOU EVER HAD AN STD?NO REVIEWED WITH PATIENT 07/31/18 0947 JS08/29/18 REVIEWED WITH PT. AD09/05/18 1315 REVIEWED WITH PT LAS09/09/18 REVIEWED WITH PT LASREVIEWED WITH PATIENT 12/02/18 1033 JSREVIEWED WITH PATIENT 02/12/19 1445 JS01/30/19 REVIEWED WITH PT. AD. HOSPITALIZATION/MAJOR DIAGNOSTIC PROCEDURE ABOVE SURGERIES REVIEW OF SYSTEMS REVIEWED BY: PROVIDER: DAVID NINO MD . CONSTITUTIONAL: ANY CHANGE IN YOUR MEDICAL CONDITION? NO . CHILLS NO . FEVER NO . INFECTION: DO YOU HAVE NEW INFECTIONS? NO . DO YOU HAVE HISTORY OF MRSA? NO . MUSCULOSKELETAL: ANY NEW PATTERNS OF PAIN OR NUMBNESS? NO . GASTROENTEROLOGY: ANY NEW CHANGE IN BOWEL CONTROL? NO . GENITOURINARY: ANY NEW CHANGE IN BLADDER CONTROL? NO . IS THERE A CHANCE YOU COULD BE ? NO . HEMATOLOGY/LYMPH: DO YOU TAKE ANY BLOOD THINNERS? (FOR EXAMPLE- COUMADIN, PLAVIX, AGGRENOX, PLATEL, PRADAXA, OR XARELTO) NO . WHEN WAS YOUR LAST DOSE? DATE: TIME: . NEUROLOGY: HAVE YOU FALLEN IN THE PAST 12 MONTHS? NO . ANY NEW EXTREMITY NUMBNESS OR WEAKNESS? NO . CARDIOLOGY: DO YOU HAVE A PACEMAKER OR DEFIBRILLATOR? NO . RESPIRATORY: HAVE YOU BEEN SICK IN THE PAST WEEK? NO . FEVER NO . FLU LIKE SYMPTOMS? NO . COUGH NO . INTEGUMENTARY: DO YOU HAVE ANY RASHES OR OPEN SORES? NO . ALLERGIC/IMMUNO: ARE YOU ALLERGIC TO IV DYE? NO . ANY NEW ALLERGIES? NO . PSYCHIATRIC: DO YOU HAVE THOUGHTS OF HURTING YOURSELF OR SOMEONE ELSE? NO . ARE YOU ABUSED, NEGLECTED, OR IN AN UNSAFE ENVIRONMENT? NO . ENDOCRINOLOGY: ARE YOU DIABETIC? NO . OTHER: DO YOU NEED ANY PRESCRIPTIONS? NO . IF YES, PLEASE LIST: ____ . ANY NEW PROBLEMS WITH YOUR MEDICATIONS? NO . WHEN DID YOU LAST EAT? ____ . WHEN DID YOU LAST DRINK? ____ . WHAT DID YOU LAST DRINK? ____ . NAME OF PERSON DRIVING YOU HOME? ____ . DO YOU HAVE ANY OTHER QUESTIONS OR CONCERNS NO . VITAL SIGNS WT 200.8 LBS, HT 60 IN, BMI 39.21 INDEX, BP 137/87 MM HG, HR 97 /MIN, RR 18 /MIN, TEMP 98.3 F, OXYGEN SAT % 100%, SAFE IN ENV? (Y/N) YES, NA INITIALS SC 14:26, REVIEWED BY: CHA. EXAMINATION GENERAL EXAMINATION: PATIENT IS ALERT O X 3 AND COOPERATIVE. TENDERNESS IN THE LOW BACK OVER THE SACROILIAC JOINTS. PRESENCE OF BANDS OF TISSUE AND TRIGGER POINTS WITH RESTRICTION OF MOVEMENT OF THE LOW BACK. MRI OF THE LUMBAR SPINE DONE ON 09/18/2018 SHOWS SEVERE FACET ARTHROPATHY CHANGES AND DISC EXTRUSIONS. ASSESSMENTS MYALGIA, OTHER SITE - M79.18 (PRIMARY) CHRONIC MIGRAINE - G43.709 SACROILIITIS, NOT ELSEWHERE CLASSIFIED - M46.1 TREATMENT MYALGIA, OTHER SITE CLINICAL NOTES: WE DISCUSSED SEVERAL ISSUES WITH MS. SHEARER'S PAIN MANAGEMENT CASE. DUE TO THE TRIGGER POINTS, BANDS OF TISSUE, AND RESTRICTION OF MOVEMENT, I WOULD LIKE TO MOVE FORWARD WITH A NECK TRIGGER POINT INJECTION AT THIS TIME. WE DISCUSSED THE BENEFITS, RISKS, AND ALTERNATIVES OF THE INJECTION AND THE PATIENT WOULD LIKE TO PROCEED. I AM ALSO REFERRING THE PATIENT TO A NEUROLOGIST DUE TO MEMORY PROBLEMS AND TO DISCUSS DIFFERENT OPTIONS FOR HER. THE PATIENT WILL FOLLOW UP IN SEVERAL WEEKS AFTER THE INJECTION. INSTRUCTIONS WERE GIVEN, QUESTIONS WERE ANSWERED, PATIENT REPORTS UNDERSTANDING AND AGREES WITH THE PLAN. I, DOUGLAS PEPPER, DOCUMENTED THE ABOVE INFORMATION ACTING A SCRIBE FOR DR. NINO. I HAVE REVIEWED THE ABOVE DOCUMENT, WRITTEN BY DOUGLAS ADLER AND I VERIFY THAT IT IS ACCURATE. . PREVENTIVE MEDICINE PAIN CLINIC TEACHING: PROCEDURE TEACHING PT GIVEN WRITTEN AND VERBAL PRE PROCEDURE INSTRUCTIONS. PT VERBALIZES UNDERSTANDING OF ALL INSTRUCTIONS. KAILYN HOBSON 02/12/2019 4:30:57 PM > . PROCEDURE CODES G8427 CURRENT MEDS W/DOSAGES DOCUMENTED G8730 PAIN ASSESS POS TOOL F/U PLAN DOC FA211 ESTABILISHED PATIENT [facility] FACILITY CHARGE DISPOSITION & COMMUNICATION FOLLOW UP 3 WEEKS (REASON: NECK TPI) ELECTRONICALLY SIGNED BY DAVID NINO MD, ON 02/21/2019 AT 02:02 PM EDT DISCLAIMER : THIS IS A VISIT SUMMARY EXTRACTED FROM THE [facility] CHART. IT IS NOT A COPY OF THE [employer] [facility] PROGRESS NOTE. JOHNNIE
== END ==
LOC: M PAIN 14:30
PROVIDERS: ATTEND Anesthesiology
DX: M79.18 Myalgia, other site (principal); G43.709 Chronic migraine without aura, not intractable, without status migrainosus; M46.1 Sacroiliitis, not elsewhere classified; K21.9 Gastro-esophageal reflux disease without esophagitis; J44.9 Chronic obstructive pulmonary disease, unspecified; E66.9 Obesity, unspecified; E28.2 Polycystic ovarian syndrome; E78.5 Hyperlipidemia, unspecified; L68.0 Hirsutism; G25.81 Restless legs syndrome; D50.9 Iron deficiency anemia, unspecified; R53.83 Other fatigue; N92.0 Excessive and frequent menstruation with regular cycle; N92.6 Irregular menstruation, unspecified; N80.9 Endometriosis, unspecified; N30.10 Interstitial cystitis (chronic) without hematuria; M54.81 Occipital neuralgia; G89.29 Other chronic pain; K59.00 Constipation, unspecified; E83.51 Hypocalcemia; Z86.010 Personal history of colon polyps; Z90.49 Acquired absence of other specified parts of digestive tract; Z87.81 Personal history of (healed) traumatic fracture; Z88.0 Allergy status to penicillin; Z88.5 Allergy status to narcotic agent; Z88.8 Allergy status to other drugs, medicaments and biological substances

== ENCOUNTER → 2019-02-17 | Outpatient (CLI) | payer MEDICARE, MEDICAID ==
[~2019-02-17] MED LIST changes: +BUPIVACAINE HCL 0.25% 10 ML VIAL As Ordered ONE; +BUPIVACAINE HCL 0.25% 30 ML VIAL As Ordered ONE; +TRIAMCINOLONE ACETONIDE SUSP 40 MG/ML VIAL (J3301) As Ordered ONE; +diazePAM 5 MG TAB As Ordered ONE; +oxyCODONE 5MG TAB As Ordered ONE
--- NOTE | 2019-02-25 23:54 | ECWPNPC ---
PATIENT NAME: DEEDEE SHEARER : 1975 GENDER: FEMALE VISIT DATE: 02/17/2019 DISCHARGE DATE: 02/17/19 1128 VISIT LOCKED DATE TIME: PHYSICIAN: DAVID NINO MD RESOURCE: DAVID NINO MD REASON FOR APPOINTMENT 1. NECK TPI HISTORY OF PRESENT ILLNESS HISTORY OF PRESENT ILLNESS: PAIN THE PATIENT DESCRIBES THE PAIN... FALL RISK SCREENING: SCREENING :NO FALLS REPORTED IN THE LAST YEAR CURRENT MEDICATIONS TAKING E-Z SPACER 1 SPACER ICD10: J44.9 DIRECTED WITH PRN ALBUTEROL INHALER TAKING FERROUS SULFATE 325 MG CAPSULE 1 TABLET ORALLY DAILY WITH ORANGE JUICE, NOTES: NONE RECENT TAKING ATORVASTATIN CALCIUM 40 MG TABLET 1 TABLET ORALLY DAILY, NOTES: 02/16/19 TAKING ALBUTEROL SULFATE HFA 108 (90 BASE) MCG/ACT AEROSOL SOLUTION 2 PUFFS NEEDED INHALATION EVERY 4 HRS PRN SOB/WHEEZING, NOTES: NONE RECENT TAKING MAGNESIUM CHLORIDE - POWDER 2 ZRH=727RV (4 TSPS) ORALLY TWICE DAILY NEEDED, NOTES: NONE RECENT TAKING DIHYDROERGOTAMINE MESYLATE 1 MG/ML SOLUTION 1 ML NEEDED INJECTION TWICE A DAY MAX DOSE. 3 TIMES A WEEK, NOTES: NONE RECENT-BACKORDERED TAKING KETOROLAC TROMETHAMINE 30 MG/ML SOLUTION 1 ML NEEDED INJECTION EVERY 6 HRS, NOTES: NONE RECENT -BACKORDERED TAKING VERAPAMIL HCL ER 180 MG TABLET EXTENDED RELEASE 1 TABLET ORALLY TWICE A DAY, NOTES: 02/17/19 0630 TAKING CHLORHEXIDINE GLUCONATE 0.12 % SOLUTION DIRECTED MOUTH/THROAT RINSE MOUTH TWICE DAILY FOR 30 SECONDS AND SPIT OUT, NOTES: 02/17/19 0630 TAKING COLACE 100 MG CAPSULE 1 CAPSULE ORALLY BID, NOTES: FEW DAYS AGO TAKING VITAMIN D3 2000 UNIT CAPSULE 1 CAPSULE ORALLY ONCE A DAY, NOTES: 02/16/19 TAKING ALAVERT ALLERGY/SINUS 5-120 MG TABLET EXTENDED RELEASE 12 HOUR 1 TABLET NEEDED ORALLY EVERY 12 HRS, NOTES: NONE RECENT TAKING MAY HAVE - - PLEASE DISPENSE WRIST BRACES WITHOUT THUMB SPICA R AND L WRISTS DAILY WHEN SLEEPING. G56.01 & G56.02 TAKING IBUPROFEN 800 MG TABLET 1 TABLET WITH FOOD OR MILK NEEDED ORALLY THREE TIMES DAILY NEEDED FOR MIGRAINE HEADACHE, NOTES: 02/16/19 TAKING PANTOPRAZOLE SODIUM 40 MG TABLET DELAYED RELEASE 1 TABLET ORALLY BID, NOTES: 02/17/19629 TAKING URSODIOL 300 MG CAPSULE 1 CAP ORALLY DAILY, NOTES: 02/16/19 TAKING FLONASE 50 MCG/ACT SUSPENSION 1 SPRAY IN EACH NOSTRIL NASALLY ONCE A DAY, NOTES: NONE RECENT TAKING OXYCODONE HCL 10 MG TABLET 1 TABLET ORALLY Q 6-8 HRS PRN PAIN MDD=3, NOTES: 02/16/19 PM TAKING TOPIRAMATE 200 MG TABLET 1 1/2 TABLET ORALLY BID, NOTES: 02/17/19629 TAKING TIZANIDINE HCL 4 MG TABLET 1 TABLET NEEDED ORALLY TWICE A DAY; DO NOT TAKE IF TAKING BACLOFEN SAME DAY., NOTES: 02/16/19 TAKING GABAPENTIN 600 MG TABLET 1 CAP ORALLY THREE TIMES DAILY, NOTES: 02/16/19 PM TAKING BACLOFEN 10 MG TABLET 2 TABLET WITH FOOD OR MILK ORALLY 2 TABS AT BED TIME NEEDED, NOTES: NONE RECENT TAKING PROMETHAZINE HCL 25 MG TABLET 1 TABLET NEEDED ORALLY EVERY 12 HRS PRN NAUSEA, NOTES: NONE RECENT TAKING VITAMIN C ER 1000 MG TABLET EXTENDED RELEASE 1 TABLET ORALLY ONCE A DAY, NOTES: NONE RECENT TAKING PHENTERMINE HCL 37.5 MG TABLET 1 CAPSULE ORALLY ONCE A DAY, NOTES: PLEASE CANCEL 15 MG CAPS 02/17/19629 TAKING INSULIN SYRINGE-NEEDLE U-100 25G X 1 MISCELLANEOUS USE FOR 1 MG INJECTIONS FOR DIHYDROERGOTERMINE INTRAMUSCULARLY UP TO 3 TIMES IN ONE DAY OR 8 TIMES IN ONE WEEK TAKING PHENTERMINE HCL 37.5 MG TABLET 1 TABLET ORALLY ONCE A DAY, NOTES: DUPLICATE NOT-TAKING PHENTERMINE HCL 15 MG CAPSULE 2 CAPSULE ORALLY ONCE A DAY NOT-TAKING NYSTATIN [id number] UNIT/ML SUSPENSION 4 ML MOUTH/THROAT FOUR TIMES A DAY; SWISH AND SPIT OUT, NOTES: 01/29 1000 NOT-TAKING KETOROLAC TROMETHAMINE 10 MG TABLET 1 TABLET WITH FOOD OR MILK NEEDED ORALLY EVERY 6 HRS NEEDED FOR HEADACHE OR BACK PAIN NOT-TAKING SPIRONOLACTONE 25 MG TABLET 1 TABLET ORALLY ONCE A DAY NOT-TAKING AMITIZA 24 MCG CAPSULE 1 CAPSULE WITH FOOD ORALLY TWICE A DAY PRN CONSTIPATION NOT-TAKING AMITIZA 8 MCG CAPSULE 1 CAPSULE WITH FOOD ORALLY PRN TWICE A DAY MEDICATION LIST REVIEWED AND RECONCILED WITH THE PATIENT PAST MEDICAL HISTORY GERD DEGENERATIVE DISC DISEASE HERNIATED DISCS BULGING DISCS ARTHRITIS IN SPINE COPD PER PATIENT CHRONIC MIGRAINES R ANKLE BROKEN L BROKEN FOOT R KNEE SCAR TISSUE HX OF BROKEN COCCYX OBESITY PCOS, HIRSUTISM HYPERLIPIDEMIA RESTLESS LEGS SYNDROME MEMORY ISSUES IRON DEFICIENCY ANEMIA CHRONIC FATIGUE HEAVY MENSTRUAL PERIODS IRREGULAR MENSTRUAL PERIODS ENDOMETRIOSIS INTERSTITIAL CYSTITIS REPORTED HISTORY OF COLONIC POLYPS ELEVATED 24 HR CORTISOL- SEEING DR. [facility] NEURALGIA CHRONIC PAIN DUE TO TRAUMA MYALGIA CONSTIPATION HYPOCALCEMIA ALLERGIES TYLENOL: FEVER - ALLERGY ZANTAC: NUMBNESS ANDTINGLING IN HANDS AND SWOLLEN LIPS - ALLERGY HYDROCODONE-ACETAMINOPHEN: FEVER ,NAUSEA - ALLERGY PENICILLIN (FOR ALLERGIES USE ONLY): YEAST INFECTION VENOFER: JOINT SWELLING - ALLERGY SURGICAL HISTORY TONSILLECTOMY 1990 APPENDECTOMY 1977 R KNEE FX 2002 R ANKLE FX 2016 DIAGNOSTIC LAPAROSCOPY WITH REMOVAL OF SCAR TISSUE 2011 COLONOSCOPY/ ENDOSCOPY 09/26/2018 RIGHT ANKLE HARDWARE REMOVED 10/2018 RIGHT ANKLE FX AND REPAIR 2015 TOOTH EXTRACTION 1998 FAMILY HISTORY FATHER: , PANCREATITIS MOTHER: , EMPHYSEMA, ASTHMA SIBLINGS: ALIVE, CANCER 3 BROTHER(S) , 7 SISTER(S) - HEALTHY. SISTER, JAYLA, STAGE 3 A LUNG CANCER \\\\\\\\\\\\\\\\\\\\\\\\\\\\\\\\NSISTER, CRISTAL, WITH LEUKEMIA\\\\\\\\\\\\\\\\\\\\\\\\\\\\\\\\NSISTER, YEIMI, UTERINE THAT MATASTISIZE TO LUNGS, LIVER AND KIDNEY\\\\\\\\\\\\\\\\\\\\\\\\\\\\\\\\NSISTER, VALARIE, CERVICAL CA \\\\\\\\\\\\\\\\\\\\\\\\\\\\\\\\NBROTHER, ALYSSA, PROSTATE CA. SOCIAL HISTORY GENERAL: TOBACCO USE ARE YOU A:NONSMOKER NEVER SMOKER HIV / HEP-C SCREENING HIV TEST OFFERED TO PATIENT:YES DATE OFFERED:08/01/2017 TEST ACCEPTED:NO HEP-C TEST OFFERED TO PATIENT:NO REASON:PATIENT DECLINED BROCHURE PROVIDED TO PATIENTYES OTHERS AT HOME: SIBLING, IN-LAW(S). EDUCATION LEVEL OF EDUCATION:COLLEGE DIET: NO MSG ,GLUTEN FREE. LANGUAGE LANGUAGES SPOKEN:CAMBODIAN DOMESTIC VIOLENCE DO YOU FEEL SAFE IN YOUR ENVIRONMENT?YES RECREATIONAL DRUG USE DRUG USE?NO EXERCISE: NONE. LEARNING BARRIERS / SPECIAL NEEDS BARRIERS TO LEARNING?NO HEARING IMPAIRED?NO VISION IMPAIRED?NO COGNITIVELY IMPAIRED?NO READINESS TO LEARN?YES LEARNING PREFERENCES?YES :DEMONSTRATION/VERBAL INSTRUCTION LEARNING CAPABILITIES PRESENT?YES EMOTIONAL BARRIERS?NO SPECIAL DEVICES?NO MERCHANDISE EXECUTIVE NEEDED?NO PAIN CLINIC PFS, CLERGY, PUBLIC HEALTH REFERRALS HAS THE PATIENT BEEN EDUCATED REGARDING HIS/HER PLAN OF CARE?YES HAS THE PATIENT BEEN EDUCATED REGARDING PAIN, THE RISK FOR PAIN, THE IMPORTANCE OF EFFECTIVE PAIN MANAGEMENT, AND THE PAIN ASSESSMENT PROCESS?YES LATEX QUESTIONNAIRE LATEX ALLERGY : HAVE YOU EVER DEVELOPED ANY TYPE OF REACTION AFTER HANDLING LATEX PRODUCTS SUCH RUBBER GLOVES, CONDOMS, DIAPHRAGMS, BALLOONS, SOCKS, OR UNDERWEAR?YES LATEX ALLERGY : HAVE YOU EVER DEVELOPED ANY TYPE OF REACTION DURING OR AFTER DENTAL APPOINTMENT, VAGINAL/RECTAL EXAMINATION, SURGICAL PROCEDURE, OR ANY OTHER EXPOSURE?NO - PLEASE INDICATE :OTHER (DOCUMENT IN NOTES) SOME BANDAIDS DATE ASKED : 01/30/2019 LATEX RISK : HAVE YOU EVER HAD ANY DIFFICULTY BREATHING OR HIVES AFTER EATING OR HANDLING ANY FRUITS, OR VEGETABLES; SUCH KIWI, BANANAS, STONE FRUITS, OR CHESTNUTSNO LATEX RISK : DO YOU HAVE A PREVIOUS PERSONAL HISTORY OF MORE THAN NINE SURGERIES, SPINA BIFIDA, OR REPEATED CATHERIZATIONS? NO LATEX RISK : ARE YOU FREQUENTLY EXPOSED TO LATEX PRODUCTS IN YOUR OCCUPATION?NO CAFFEINE CAFFEINE USE?NO ADVANCE DIRECTIVE ADVANCE DIRECTIVE DISCUSSED WITH PATIENT:YES HAS HCP- MALGORZATA VELASCO [phone] [id number] NONE OTHER MARITAL STATUS: SINGLE. ALCOHOL SCREENING DID YOU HAVE A DRINK CONTAINING ALCOHOL IN THE PAST YEAR?NO POINTS0 INTERPRETATIONNEGATIVE OCCUPATION: UNEMPLOYED. SEXUAL HX HAD SEX IN THE LAST 12 MONTHS (VAGINAL, ORAL, OR ANAL)?NO HAVE YOU EVER HAD AN STD?NO REVIEWED WITH PATIENT 07/31/18 0947 JS08/29/18 REVIEWED WITH PT. AD09/05/18 1315 REVIEWED WITH PT LAS09/09/18 REVIEWED WITH PT LASREVIEWED WITH PATIENT 12/02/18 1033 JSREVIEWED WITH PATIENT 02/12/19 1445 JS01/30/19 REVIEWED WITH PT. ADREVIEWED WITH PT 02/17/19 0927 BV. HOSPITALIZATION/MAJOR DIAGNOSTIC PROCEDURE ABOVE SURGERIES REVIEW OF SYSTEMS REVIEWED BY: PROVIDER: . CONSTITUTIONAL: ANY CHANGE IN YOUR MEDICAL CONDITION? NO . CHILLS NO . FEVER NO . INFECTION: DO YOU HAVE NEW INFECTIONS? NO . DO YOU HAVE HISTORY OF MRSA? NO . MUSCULOSKELETAL: ANY NEW PATTERNS OF PAIN OR NUMBNESS? NO . GASTROENTEROLOGY: ANY NEW CHANGE IN BOWEL CONTROL? NO . GENITOURINARY: ANY NEW CHANGE IN BLADDER CONTROL? NO . IS THERE A CHANCE YOU COULD BE ? NO . HEMATOLOGY/LYMPH: DO YOU TAKE ANY BLOOD THINNERS? (FOR EXAMPLE- COUMADIN, PLAVIX, AGGRENOX, PLATEL, PRADAXA, OR XARELTO) NO . WHEN WAS YOUR LAST DOSE? DATE: TIME: . NEUROLOGY: HAVE YOU FALLEN IN THE PAST 12 MONTHS? NO . ANY NEW EXTREMITY NUMBNESS OR WEAKNESS? NO . CARDIOLOGY: DO YOU HAVE A PACEMAKER OR DEFIBRILLATOR? NO . RESPIRATORY: HAVE YOU BEEN SICK IN THE PAST WEEK? NO . FEVER NO . FLU LIKE SYMPTOMS? NO . COUGH NO . INTEGUMENTARY: DO YOU HAVE ANY RASHES OR OPEN SORES? NO . ALLERGIC/IMMUNO: ARE YOU ALLERGIC TO IV DYE? NO . ANY NEW ALLERGIES? NO . PSYCHIATRIC: DO YOU HAVE THOUGHTS OF HURTING YOURSELF OR SOMEONE ELSE? NO . ARE YOU ABUSED, NEGLECTED, OR IN AN UNSAFE ENVIRONMENT? NO . ENDOCRINOLOGY: ARE YOU DIABETIC? NO . OTHER: DO YOU NEED ANY PRESCRIPTIONS? NO . IF YES, PLEASE LIST: ____ . ANY NEW PROBLEMS WITH YOUR MEDICATIONS? NO . WHEN DID YOU LAST EAT? 02/16/191999 . WHEN DID YOU LAST DRINK? ____02/17/19 0600 . WHAT DID YOU LAST DRINK? WATER . NAME OF PERSON DRIVING YOU HOME? JAYLA-SISTER . DO YOU HAVE ANY OTHER QUESTIONS OR CONCERNS NO . VITAL SIGNS WT 200.8 LBS, HT 60 IN, BMI 39.21 INDEX, BP 131/97 MM HG, HR 103 /MIN, RR 18 /MIN, TEMP 98.0 F, OXYGEN SAT % 98%, NA INITIALS AW 0916, REVIEWED BY: BV. ASSESSMENTS MYALGIA, OTHER SITE - M79.18 (PRIMARY) PROCEDURES PN TRIGGER POINT INJECTION WITH STEROIDS PRE PROCEDURE DIAGNOSIS 1. MYALGIA 2. PAIN AT BILATERAL NECK AREA. POST PROCEDURE DIAGNOSIS 1. MYALGIA 2. PAIN AT BILATERAL NECK AREA. PROCEDURE TRIGGER POINT INJECTION AT RIGHT AND LEFT NECK AREA. SURGEON DR. DAVID NINO INFANT LEAD TEACHER NONE ANESTHESIA LOCAL PRE PROCEDURE NOTE THE PATIENT HAS A HISTORY OF CHRONIC PAIN AT THE RIGHT AND LEFT NECK AREA. I EVALUATED THE PATIENT AND REVIEWED THE CHART. THERE IS EVIDENCE OF BANDS OF TISSUE WITH RESTRICTION OF MOVEMENT AND PRESENCE OF TRIGGER POINT AT THE AFFECTED AREA. I WENT OVER THE RISKS, ALTERNATIVES, AND BENEFITS ASSOCIATED WITH THIS PROCEDURE. THE PATIENT WOULD LIKE TO PROCEED AND GIVE CONSENT TO PERFORMED THE PROCEDURE. THE PATIENT DENIES UNEXPLAINABLE WEIGHT LOSS, FEVER, CHILLS, OR NEW CHANGES IN URINARY OR BOWEL CONTROL DESCRIPTION OF PROCEDURE THE PATIENT WAS BROUGHT TO THE PROCEDURE ROOM AND PLACED IN THE SITTING POSITION. THE AREA WAS CLEANED WITH ALCOHOL. THE PROCEDURE WAS DONE USING ASEPTIC STERILE TECHNIQUE. I CHECKED LATERALITY AND THE LEVEL WHERE THE PROCEDURE WAS GOING TO BE PERFORMED WITH THE PATIENT AND THE SUPPORTING STAFF AT THE MOMENT OF THE TIME OUT IN THE PROCEDURE ROOM. USING A 25-GAUGE NEEDLE, TRIGGER POINTS WERE INJECTED AT THE RIGHT AND LEFT NECK AREA WITH A TOTAL OF 40 ML OF BUPIVACAINE 0.25% AND KENALOG 40 MG. THERE WAS NO EVIDENCE OF BLOOD, PARESTHESIA OR CEREBROSPINAL FLUID DURING THE PROCEDURE. THE PATIENT WAS SENT TO THE RECOVERY ROOM. THE PATIENT WAS MOVING THE EXTREMITIES AND DOING WELL. THERE WAS NO COMPLICATION DURING THE PROCEDURE POST PROCEDURE NOTE THE PATIENT WILL BE SEEN IN A FOLLOW UP IN THE NEXT FEW WEEKS. INSTRUCTIONS WERE GIVEN, QUESTIONS WERE ANSWERED, AND THE PATIENT EXPRESSED UNDERSTANDING AND AGREES WITH THE PLAN. I, DOUGLAS PEPPER, DOCUMENTED THE ABOVE INFORMATION ACTING A SCRIBE FOR DR. NINO. I HAVE REVIEWED THE ABOVE DOCUMENT, WRITTEN BY DOUGLAS ADLER AND I VERIFY THAT IT IS ACCURATE. PROCEDURE CODES 97722 INJ TRIGGER POINT 07/24 [facility] DISPOSITION & COMMUNICATION FOLLOW UP 3 WEEKS ELECTRONICALLY SIGNED BY DAVID NINO MD, MD ON 02/25/2019 AT 02:16 PM EDT DISCLAIMER : THIS IS A VISIT SUMMARY EXTRACTED FROM THE [facility] CHART. IT IS NOT A COPY OF THE [facility] PROGRESS NOTE. JOHNNIE
== END ==
LOC: M PAIN 09:15
PROVIDERS: ATTEND Anesthesiology
DX: M79.18 Myalgia, other site (principal); K21.9 Gastro-esophageal reflux disease without esophagitis; J44.9 Chronic obstructive pulmonary disease, unspecified; G43.709 Chronic migraine without aura, not intractable, without status migrainosus; E66.9 Obesity, unspecified; E78.5 Hyperlipidemia, unspecified; G25.81 Restless legs syndrome; D50.9 Iron deficiency anemia, unspecified; R53.83 Other fatigue; N92.0 Excessive and frequent menstruation with regular cycle; L68.0 Hirsutism; M54.81 Occipital neuralgia; K59.00 Constipation, unspecified; E83.51 Hypocalcemia; Z68.39 Body mass index [BMI] 39.0-39.9, adult; Z79.891 Long term (current) use of opiate analgesic; Z79.899 Other long term (current) drug therapy; Z88.0 Allergy status to penicillin; Z88.5 Allergy status to narcotic agent; Z88.8 Allergy status to other drugs, medicaments and biological substances; Z88.6 Allergy status to analgesic agent
CPT/HCPCS: 20552; J3301

== ENCOUNTER → 2019-02-20 | Outpatient (CLI) | payer MEDICARE, MEDICAID ==
[~2019-02-20] MED LIST changes: -BUPIVACAINE HCL 0.25% 10 ML VIAL As Ordered ONE; -BUPIVACAINE HCL 0.25% 30 ML VIAL As Ordered ONE; -TRIAMCINOLONE ACETONIDE SUSP 40 MG/ML VIAL (J3301) As Ordered ONE; -diazePAM 5 MG TAB As Ordered ONE; -oxyCODONE 5MG TAB As Ordered ONE
--- NOTE | 2019-02-20 12:13 | REP ---
HEPATOBILIARY SCAN: HISTORY: Right upper quadrant pain. Comparison hepatobiliary scan is from April 04, 2018. TECHNIQUE: 6.6 mCi technetium 99m mebrofenin is injected and sequential images are acquired for 60 minutes. Three hour delayed images are acquired. SCINTIGRAPHIC FINDINGS: The initial hepatocellular parenchymal uptake phase is normal and homogeneous. Intrahepatic bile ducts and CBD are first visualized at 10 minutes. The duodenum is first visualized at 15 minutes. The gallbladder is not visualized during the initial 60-minute imaging acquisition. There is normal washout from the liver parenchyma into the small intestine. At the three hour delayed corinne, the radiotracer is completely washout of the liver. There is no definite gallbladder tracer labeling. There is a large amount of bowel uptake projecting in the right upper quadrant. IMPRESSION: The gallbladder does not visualize during the initial 60 minutes. 3 hours images are difficult to evaluate because of right upper quadrant bowel uptake. No definite gallbladder visualization. Otherwise negative. Electronically Signed by Yasmany Subramanian MD 02/20/2019 02:19 P
== END ==
LOC: M RAD 07:39
PROVIDERS: ATTEND Surgery
DX: R10.11 Right upper quadrant pain (principal)
CPT/HCPCS: 78226; A9537

== ENCOUNTER → 2019-03-13 | Outpatient (CLI) | payer MEDICARE, MEDICAID ==
[2019-03-13 10:06] LABS: BASO % 0.8 % (0.0-1.0); EOS # 0.1 10^3/uL (0.0-0.50); EOS % 1.2 % (0.0-3.0); HEMATOCRIT 43.9 % (36.0-47.0); HEMOGLOBIN 14.2 g/dl (12.0-15.5); LYMPH % 38.9 % (24.0-44.0); MEAN CORPUSCULAR HGB CONC 32.3 g/dl (32.0-36.5); MEAN CORPUSCULAR VOLUME 92.6 fl (80.0-96.0); MONO # 0.4 10^3/uL (0.0-0.8); MONO % 7.5 % (0.0-5.0); NEUTROPHILS # 2.7 10^3/uL (1.8-7.7); NEUTROPHILS % 51.4 % (36.0-66.0); PLATELET COUNT, AUTOMATED 216 10^3/uL (150-450); RED BLOOD COUNT 4.74 10^6/uL (4.00-5.40); WHITE BLOOD COUNT 5.2 10^3/uL (4.0-10.0)
[2019-03-13 10:33] LABS: ALBUMIN 3.8 GM/DL (3.2-5.2); ALT/SGPT 13 U/L (12-78); BILIRUBIN,TOTAL 0.4 MG/DL (0.2-1.0); BLOOD UREA NITROGEN 14 MG/DL (7-18); CALCIUM LEVEL 8.9 MG/DL (8.5-10.1); CARBON DIOXIDE LEVEL 25 MEQ/L (21-32); CHLORIDE LEVEL 111 MEQ/L (98-107); CHOLESTEROL LEVEL 202 MG/DL (<200); CREATININE FOR GFR 1.03 MG/DL (0.55-1.30); GLOMERULAR FILTRATION RATE > 60.0 (>58); GLUCOSE, FASTING 102 MG/DL (70-100); HDL CHOLESTEROL 54 MG/DL (>40); IRON (FE) 88 UG/DL (50-170); LDL CHOLESTEROL 117 MG/DL (<100); NON-HDL-C 148 MG/DL; PERCENT SATURATION 28.4 % (13.2-45.0); POTASSIUM SERUM 3.6 MEQ/L (3.5-5.1); SODIUM LEVEL 144 MEQ/L (136-145); TOTAL IRON BINDING CAPACITY 310 UG/DL (250-450); TOTAL PROTEIN 6.8 GM/DL (6.4-8.2); TRIGLYCERIDES LEVEL 153 MG/DL (<150)
[2019-03-13 12:23] LABS: TOTAL 25(OH) VITAMIN D 22.2 NG/ML (30.0-100.0)
[2019-03-13 12:24] LABS: CORTISOL AM 6.2 UG/DL (4.3-22.4)
== END ==
LOC: M LAB 09:18
PROVIDERS: ATTEND Family Medicine
DX: R68.89 Other general symptoms and signs (principal); N92.6 Irregular menstruation, unspecified; G44.40 Drug-induced headache, not elsewhere classified, not intractable; Z13.220 Encounter for screening for lipoid disorders; E55.9 Vitamin D deficiency, unspecified

== ENCOUNTER → 2019-03-18 | Outpatient (CLI) | payer MEDICARE, MEDICAID ==
[~2019-03-18] MED LIST changes: +BUPIVACAINE HCL 0.25% 30 ML VIAL As Ordered ONE; +DICL75TA PO; +HM V4000 PO; +IBUP-1114 PO; +ISOVUE-M 200 41% 20ML VIAL (Q9966) As Ordered ONE; +KETO60IN IM; +LIDOCAINE 1% SDV INJ 30 ML VIAL As Ordered ONE; +PHEN-239 PO; +PROM50TA4 PO; +TOPA100T12 PO; +TOPA200T7 PO; +TRIAMCINOLONE ACETONIDE SUSP 40 MG/ML VIAL (J3301) As Ordered ONE; +URSO300C3 PO; +[UNRECOGNIZED DRUG - CODE] IM; +diazePAM 5 MG TAB As Ordered ONE; +oxyCODONE 5MG TAB As Ordered ONE
--- NOTE | 2019-03-18 18:35 | REP ---
FLUOROSCOPIC GUIDANCE FOR BILATERAL SI JOINT INJECTION: 03/18/2019. Clinical history: Low back pain. Findings: Six images from C-arm fluoroscopy provided to Dr. Santos of the pain clinic for bilateral SI joint injections. For each site a needle is seen in the lower mid and upper portion of the SI joint, respectively. Fluoroscopy time: 17 seconds. Electronically Signed by Cory Salas MD 03/18/2019 07:47 P
--- NOTE | 2019-03-21 23:51 | ECWPNPC ---
PATIENT NAME: DEEDEE SHEARER : 1975 GENDER: FEMALE VISIT DATE: 03/18/2019 DISCHARGE DATE: 03/18/19 1025 VISIT LOCKED DATE TIME: PHYSICIAN: DAVID NINO MD RESOURCE: DAVID NINO MD REASON FOR APPOINTMENT 1. BILATERAL SIJ HISTORY OF PRESENT ILLNESS HISTORY OF PRESENT ILLNESS: PAIN THE PATIENT DESCRIBES THE PAIN... FALL RISK SCREENING: SCREENING :NO FALLS REPORTED IN THE LAST YEAR CURRENT MEDICATIONS TAKING E-Z SPACER 1 SPACER ICD10: J44.9 DIRECTED WITH PRN ALBUTEROL INHALER TAKING FERROUS SULFATE 325 MG CAPSULE 1 TABLET ORALLY DAILY WITH ORANGE JUICE, NOTES: NONE RECENT TAKING ATORVASTATIN CALCIUM 40 MG TABLET 1 TABLET ORALLY DAILY, NOTES: 02/16/19 TAKING ALBUTEROL SULFATE HFA 108 (90 BASE) MCG/ACT AEROSOL SOLUTION 2 PUFFS NEEDED INHALATION EVERY 4 HRS PRN SOB/WHEEZING, NOTES: NONE RECENT TAKING MAGNESIUM CHLORIDE - POWDER 2 PVG=[id number] (4 TSPS) ORALLY TWICE DAILY NEEDED, NOTES: NONE RECENT TAKING DIHYDROERGOTAMINE MESYLATE 1 MG/ML SOLUTION 1 ML NEEDED INJECTION TWICE A DAY MAX DOSE. 3 TIMES A WEEK, NOTES: NONE RECENT-BACKORDERED TAKING KETOROLAC TROMETHAMINE 30 MG/ML SOLUTION 1 ML NEEDED INJECTION EVERY 6 HRS, NOTES: NONE RECENT -BACKORDERED TAKING VERAPAMIL HCL ER 180 MG TABLET EXTENDED RELEASE 1 TABLET ORALLY TWICE A DAY, NOTES: 02/17/19629 TAKING CHLORHEXIDINE GLUCONATE 0.12 % SOLUTION DIRECTED MOUTH/THROAT RINSE MOUTH TWICE DAILY FOR 30 SECONDS AND SPIT OUT, NOTES: 02/17/19629 TAKING COLACE 100 MG CAPSULE 1 CAPSULE ORALLY BID, NOTES: FEW DAYS AGO TAKING VITAMIN D3 2000 UNIT CAPSULE 1 CAPSULE ORALLY ONCE A DAY, NOTES: 02/16/19 TAKING ALAVERT ALLERGY/SINUS 5-120 MG TABLET EXTENDED RELEASE 12 HOUR 1 TABLET NEEDED ORALLY EVERY 12 HRS, NOTES: NONE RECENT TAKING MAY HAVE - - PLEASE DISPENSE WRIST BRACES WITHOUT THUMB SPICA R AND L WRISTS DAILY WHEN SLEEPING. G56.01 & G56.02 TAKING PANTOPRAZOLE SODIUM 40 MG TABLET DELAYED RELEASE 1 TABLET ORALLY BID, NOTES: 02/17/19629 TAKING URSODIOL 300 MG CAPSULE 1 CAP ORALLY DAILY, NOTES: 02/16/19 TAKING FLONASE 50 MCG/ACT SUSPENSION 1 SPRAY IN EACH NOSTRIL NASALLY ONCE A DAY, NOTES: NONE RECENT TAKING VITAMIN C ER 1000 MG TABLET EXTENDED RELEASE 1 TABLET ORALLY ONCE A DAY, NOTES: NONE RECENT TAKING PHENTERMINE HCL 37.5 MG TABLET 1 CAPSULE ORALLY ONCE A DAY, NOTES: PLEASE CANCEL 15 MG CAPS 02/17/19629 TAKING INSULIN SYRINGE-NEEDLE U-100 25G X 1 MISCELLANEOUS USE FOR 1 MG INJECTIONS FOR DIHYDROERGOTERMINE INTRAMUSCULARLY UP TO 3 TIMES IN ONE DAY OR 8 TIMES IN ONE WEEK TAKING PHENTERMINE HCL 37.5 MG TABLET 1 TABLET ORALLY ONCE A DAY, NOTES: DUPLICATE TAKING TOPIRAMATE 200 MG TABLET 1 1/2 TABLET ORALLY BID TAKING PHENTERMINE HCL 37.5 MG CAPSULE 1 CAPSULE ORALLY ONCE A DAY TAKING OXYCODONE HCL 10 MG TABLET 1 TABLET ORALLY Q 6-8 HRS PRN PAIN MDD=3, NOTES: 03/17/19@1900 TAKING IBUPROFEN 800 MG TABLET 1 TABLET WITH FOOD OR MILK NEEDED ORALLY THREE TIMES DAILY NEEDED FOR MIGRAINE HEADACHE, NOTES: 02/16/19 TAKING PROMETHAZINE HCL 25 MG TABLET 1 TABLET NEEDED ORALLY EVERY 12 HRS PRN NAUSEA, NOTES: NONE RECENT TAKING TIZANIDINE HCL 4 MG TABLET 1 TABLET NEEDED ORALLY TWICE A DAY; DO NOT TAKE IF TAKING BACLOFEN SAME DAY. TAKING GABAPENTIN 300 MG CAPSULE 2 CAP ORALLY THREE TIMES DAILY, NOTES: 03/17/19@1900 TAKING BACLOFEN 10 MG TABLET 1 TABLET WITH FOOD OR MILK ORALLY EVERY 8 HRS TAKING DICLOFENAC 35 MG CAPSULE 2 CAPSULE WITH FOOD OR MILK NEEDED ORALLY BID TAKING AMITIZA 24 MCG CAPSULE 1 CAPSULE WITH FOOD ORALLY TWICE A DAY PRN CONSTIPATION TAKING AMITIZA 8 MCG CAPSULE 1 CAPSULE WITH FOOD ORALLY PRN TWICE A DAY TAKING MOBIC 15 MG TABLET 1 TABLET ORALLY ONCE A DAY DISCONTINUED PHENTERMINE HCL 15 MG CAPSULE 2 CAPSULE ORALLY ONCE A DAY DISCONTINUED NYSTATIN [id number] UNIT/ML SUSPENSION 4 ML MOUTH/THROAT FOUR TIMES A DAY; SWISH AND SPIT OUT, NOTES: 01/29 1000 DISCONTINUED SPIRONOLACTONE 25 MG TABLET 1 TABLET ORALLY ONCE A DAY MEDICATION LIST REVIEWED AND RECONCILED WITH THE PATIENT PAST MEDICAL HISTORY GERD DEGENERATIVE DISC DISEASE HERNIATED DISCS BULGING DISCS ARTHRITIS IN SPINE COPD PER PATIENT CHRONIC MIGRAINES R ANKLE BROKEN L BROKEN FOOT R KNEE SCAR TISSUE HX OF BROKEN COCCYX OBESITY PCOS, HIRSUTISM HYPERLIPIDEMIA RESTLESS LEGS SYNDROME MEMORY ISSUES IRON DEFICIENCY ANEMIA CHRONIC FATIGUE HEAVY MENSTRUAL PERIODS IRREGULAR MENSTRUAL PERIODS ENDOMETRIOSIS INTERSTITIAL CYSTITIS REPORTED HISTORY OF COLONIC POLYPS ELEVATED 24 HR CORTISOL- SEEING DR. [facility] NEURALGIA CHRONIC PAIN DUE TO TRAUMA MYALGIA CONSTIPATION HYPOCALCEMIA ALLERGIES TYLENOL: FEVER - ALLERGY ZANTAC: NUMBNESS ANDTINGLING IN HANDS AND SWOLLEN LIPS - ALLERGY HYDROCODONE-ACETAMINOPHEN: FEVER ,NAUSEA - ALLERGY PENICILLIN (FOR ALLERGIES USE ONLY): YEAST INFECTION VENOFER: JOINT SWELLING - ALLERGY SURGICAL HISTORY TONSILLECTOMY 1990 APPENDECTOMY 1977 R KNEE FX 2002 R ANKLE FX 2016 DIAGNOSTIC LAPAROSCOPY WITH REMOVAL OF SCAR TISSUE 2011 COLONOSCOPY/ ENDOSCOPY 09/26/2018 RIGHT ANKLE HARDWARE REMOVED 10/2018 RIGHT ANKLE FX AND REPAIR 2015 TOOTH EXTRACTION 1998 FAMILY HISTORY FATHER: , PANCREATITIS MOTHER: , EMPHYSEMA, ASTHMA SIBLINGS: ALIVE, CANCER 3 BROTHER(S) , 7 SISTER(S) - HEALTHY. SISTER, JAYLA, STAGE 3 A LUNG CANCER \\\\\\\\\\\\\\\\\\\\\\\\\\\\\\\\NSISTER, CRISTAL, WITH LEUKEMIA\\\\\\\\\\\\\\\\\\\\\\\\\\\\\\\\NSISTER, YEIMI, UTERINE THAT MATASTISIZE TO LUNGS, LIVER AND KIDNEY\\\\\\\\\\\\\\\\\\\\\\\\\\\\\\\\NSISTER, VALARIE, CERVICAL CA \\\\\\\\\\\\\\\\\\\\\\\\\\\\\\\\NBROTHER, ALYSSA, PROSTATE CA. SOCIAL HISTORY GENERAL: TOBACCO USE ARE YOU A:NONSMOKER NEVER SMOKER HIV / HEP-C SCREENING HIV TEST OFFERED TO PATIENT:YES DATE OFFERED:08/01/2017 TEST ACCEPTED:NO HEP-C TEST OFFERED TO PATIENT:NO REASON:PATIENT DECLINED BROCHURE PROVIDED TO PATIENTYES OTHERS AT HOME: SIBLING, IN-LAW(S). EDUCATION LEVEL OF EDUCATION:COLLEGE DIET: NO MSG ,GLUTEN FREE. LANGUAGE LANGUAGES SPOKEN:KAZAKH DOMESTIC VIOLENCE DO YOU FEEL SAFE IN YOUR ENVIRONMENT?YES RECREATIONAL DRUG USE DRUG USE?NO EXERCISE: NONE. LEARNING BARRIERS / SPECIAL NEEDS BARRIERS TO LEARNING?NO HEARING IMPAIRED?NO VISION IMPAIRED?NO COGNITIVELY IMPAIRED?NO READINESS TO LEARN?YES LEARNING PREFERENCES?YES :DEMONSTRATION/VERBAL INSTRUCTION LEARNING CAPABILITIES PRESENT?YES EMOTIONAL BARRIERS?NO SPECIAL DEVICES?NO CONSTRUCTION CONTRACTOR NEEDED?NO PAIN CLINIC PFS, CLERGY, PUBLIC HEALTH REFERRALS HAS THE PATIENT BEEN EDUCATED REGARDING HIS/HER PLAN OF CARE?YES HAS THE PATIENT BEEN EDUCATED REGARDING PAIN, THE RISK FOR PAIN, THE IMPORTANCE OF EFFECTIVE PAIN MANAGEMENT, AND THE PAIN ASSESSMENT PROCESS?YES LATEX QUESTIONNAIRE LATEX ALLERGY : HAVE YOU EVER DEVELOPED ANY TYPE OF REACTION AFTER HANDLING LATEX PRODUCTS SUCH RUBBER GLOVES, CONDOMS, DIAPHRAGMS, BALLOONS, SOCKS, OR UNDERWEAR?YES - PLEASE INDICATE :OTHER (DOCUMENT IN NOTES) SOME BANDAIDS LATEX ALLERGY : HAVE YOU EVER DEVELOPED ANY TYPE OF REACTION DURING OR AFTER DENTAL APPOINTMENT, VAGINAL/RECTAL EXAMINATION, SURGICAL PROCEDURE, OR ANY OTHER EXPOSURE?NO LATEX RISK : HAVE YOU EVER HAD ANY DIFFICULTY BREATHING OR HIVES AFTER EATING OR HANDLING ANY FRUITS, OR VEGETABLES; SUCH KIWI, BANANAS, STONE FRUITS, OR CHESTNUTSNO LATEX RISK : DO YOU HAVE A PREVIOUS PERSONAL HISTORY OF MORE THAN NINE SURGERIES, SPINA BIFIDA, OR REPEATED CATHERIZATIONS? NO LATEX RISK : ARE YOU FREQUENTLY EXPOSED TO LATEX PRODUCTS IN YOUR OCCUPATION?NO DATE ASKED : 03/18/2019 CAFFEINE CAFFEINE USE?NO ADVANCE DIRECTIVE ADVANCE DIRECTIVE DISCUSSED WITH PATIENT:YES HAS HCP- MALGORZATA VELASCO [phone] TENRIISM [id number] NONE OTHER MARITAL STATUS: SINGLE. ALCOHOL SCREENING DID YOU HAVE A DRINK CONTAINING ALCOHOL IN THE PAST YEAR?NO POINTS0 INTERPRETATIONNEGATIVE OCCUPATION: UNEMPLOYED. SEXUAL HX HAD SEX IN THE LAST 12 MONTHS (VAGINAL, ORAL, OR ANAL)?NO HAVE YOU EVER HAD AN STD?NO REVIEWED WITH PATIENT 07/31/18 0947 JS08/29/18 REVIEWED WITH PT. AD09/05/18 1315 REVIEWED WITH PT LAS09/09/18 REVIEWED WITH PT LASREVIEWED WITH PATIENT 12/02/18 1033 JSREVIEWED WITH PATIENT 02/12/19 1445 JS01/30/19 REVIEWED WITH PT. ADRFRANKLINWED WITH PT 02/17/19 0927 BV. HOSPITALIZATION/MAJOR DIAGNOSTIC PROCEDURE ABOVE SURGERIES REVIEW OF SYSTEMS REVIEWED BY: PROVIDER: . CONSTITUTIONAL: ANY CHANGE IN YOUR MEDICAL CONDITION? NO . CHILLS NO . FEVER NO . INFECTION: DO YOU HAVE NEW INFECTIONS? NO . DO YOU HAVE HISTORY OF MRSA? NO . MUSCULOSKELETAL: ANY NEW PATTERNS OF PAIN OR NUMBNESS? NO . GASTROENTEROLOGY: ANY NEW CHANGE IN BOWEL CONTROL? NO . GENITOURINARY: ANY NEW CHANGE IN BLADDER CONTROL? NO . IS THERE A CHANCE YOU COULD BE ? NO . HEMATOLOGY/LYMPH: DO YOU TAKE ANY BLOOD THINNERS? (FOR EXAMPLE- COUMADIN, PLAVIX, AGGRENOX, PLATEL, PRADAXA, OR XARELTO) NO . WHEN WAS YOUR LAST DOSE? DATE: TIME: . NEUROLOGY: HAVE YOU FALLEN IN THE PAST 12 MONTHS? NO . ANY NEW EXTREMITY NUMBNESS OR WEAKNESS? NO . CARDIOLOGY: DO YOU HAVE A PACEMAKER OR DEFIBRILLATOR? NO . RESPIRATORY: HAVE YOU BEEN SICK IN THE PAST WEEK? NO . FEVER NO . FLU LIKE SYMPTOMS? NO . COUGH NO . INTEGUMENTARY: DO YOU HAVE ANY RASHES OR OPEN SORES? NO . ALLERGIC/IMMUNO: ARE YOU ALLERGIC TO IV DYE? NO . ANY NEW ALLERGIES? NO . PSYCHIATRIC: DO YOU HAVE THOUGHTS OF HURTING YOURSELF OR SOMEONE ELSE? NO . ARE YOU ABUSED, NEGLECTED, OR IN AN UNSAFE ENVIRONMENT? NO . ENDOCRINOLOGY: ARE YOU DIABETIC? NO . OTHER: DO YOU NEED ANY PRESCRIPTIONS? NO . IF YES, PLEASE LIST: ____ . ANY NEW PROBLEMS WITH YOUR MEDICATIONS? NO . WHEN DID YOU LAST EAT? ____03/18/19 . WHEN DID YOU LAST DRINK? ____03/17/19 . WHAT DID YOU LAST DRINK? ____WATER . NAME OF PERSON DRIVING YOU HOME? ____SISTER . DO YOU HAVE ANY OTHER QUESTIONS OR CONCERNS NO . VITAL SIGNS WT 194.0 LBS, HT 60 IN, BMI 37.88 INDEX, BP 120/86 MM HG, HR 85 /MIN, RR 18 /MIN, TEMP 98.2 F, OXYGEN SAT % 98%, SAFE IN ENV? (Y/N) YES, NA INITIALS OR 08:45, REVIEWED BY: VD. ASSESSMENTS SACROILIITIS - M46.1 (PRIMARY) TREATMENT SACROILIITIS [facility] FLUORO GUIDANCE (PAIN)[id number] PROCEDURES PN SI PRE PROCEDURE DIAGNOSIS SACROILIITIS, SACROILIAC JOINT DYSFUNCTION POST PROCEDURE DIAGNOSIS SACROILIITIS, SACROILIAC JOINT DYSFUNCTION PROCEDURE BILATERAL SACROILIAC JOINT BLOCK SURGEON DR. DAVID NINO BILINGUAL SPANISH INBOUND SALES NONE ANESTHESIA LOCAL PRE PROCEDURE NOTE PATIENT WITH HISTORY OF CHRONIC LOW BACK PAIN. I EVALUATED THE PATIENT AND REVIEWED THE CHART. I WENT OVER THE RISKS, ALTERNATIVES, AND BENEFITS ASSOCIATED WITH THIS PROCEDURE. THE PATIENT WOULD LIKE TO PROCEED AND GAVE CONSENT TO PERFORM THE PROCEDURE. THE PATIENT DENIES UNEXPLAINABLE WEIGHT LOSS, FEVER, CHILLS, OR NEW CHANGES IN URINARY OR BOWEL CONTROL DESCRIPTION OF PROCEDURE THE PATIENT WAS BROUGHT TO THE PROCEDURE ROOM AND PLACED IN THE PRONE POSITION. THE LUMBOSACRAL AREA WAS CLEANED WITH CHLORAPREP SOLUTION AND DRAPED ASEPTICALLY. THE PROCEDURE WAS DONE UNDER STERILE CONDITIONS. I CHECKED LATERALITY AND THE LEVEL WHERE THE PROCEDURE WAS GOING TO BE PERFORMED WITH THE PATIENT AND THE SUPPORTING STAFF AT THE MOMENT OF THE TIME OUT IN THE PROCEDURE ROOM. UNDER FLUOROSCOPIC GUIDANCE, TARGET POINT WAS SELECTED AT THE LOWER BORDER OF THE RIGHT AND LEFT SACROILIAC JOINT. TARGET POINT WAS SELECTED AFTER MEDIAL ROTATION AND TILT OF THE MAGNIFIER OF THE C-ARM. LIDOCAINE WAS USED TO NUMB THE SKIN AND SUBCUTANEOUS TISSUE BELOW IT. A SPINAL NEEDLE, 22-GAUGE, WAS ADVANCED UNDER FLUOROSCOPIC GUIDANCE AND FOLLOWING PATIENT FEEDBACK UNTIL THE TARGET AREA WAS TOUCHED. THE POSITION OF THE NEEDLE WAS VERIFIED WITH AP AND LATERAL VIEWS. AFTER PROPER POSITION OF THE NEEDLE WAS ACHIEVED, ISOVUE M-200 CONTRAST WAS INJECTED SHOWING SPREAD OF THE DYE. THEN, A SOLUTION OF 30 MG OF KENALOG WAS INJECTED IN RIGHT AND LEFT JOINT WITH 3 ML OF BUPIVACAINE 0.125%. THERE WAS NO EVIDENCE OF BLOOD, PARESTHESIA OR CEREBROSPINAL FLUID DURING THE PROCEDURE. THE PATIENT WAS SENT TO THE RECOVERY ROOM. THE PATIENT WAS MOVING THE EXTREMITIES AND DOING WELL. THERE WAS NO COMPLICATION DURING THE PROCEDURE. FLUOROSCOPY TIME WAS 17 SECONDS POST PROCEDURE NOTE THE PATIENT WILL BE SEEN IN A FOLLOW UP IN THE NEXT FEW WEEKS. INSTRUCTIONS WERE GIVEN, QUESTIONS WERE ANSWERED, AND THE PATIENT EXPRESSED UNDERSTANDING AND AGREED WITH THE PLAN. I, DOUGLAS PEPPER, DOCUMENTED THE ABOVE INFORMATION ACTING A SCRIBE FOR DR. NINO. I HAVE REVIEWED THE ABOVE DOCUMENT, WRITTEN BY DOUGLAS ADLER AND I VERIFY THAT IT IS ACCURATE. PROCEDURE CODES 79377 INJECT SACROILIAC JOINT, MODIFIERS: 50 [id number] RADXPS IN END [id number] PXD DISPOSITION & COMMUNICATION FOLLOW UP 3 WEEKS ELECTRONICALLY SIGNED BY DAVID NINO MD, MD ON 03/21/2019 AT 04:58 PM EDT DISCLAIMER : THIS IS A VISIT SUMMARY EXTRACTED FROM THE [employer] CHART. IT IS NOT A COPY OF THE [employer] PROGRESS NOTE. MTDD
== END ==
LOC: M PAIN 08:45
PROVIDERS: ATTEND Anesthesiology
DX: G89.29 Other chronic pain (principal); M46.1 Sacroiliitis, not elsewhere classified; M54.5 Low back pain; Z79.891 Long term (current) use of opiate analgesic; Z79.899 Other long term (current) drug therapy; Z88.0 Allergy status to penicillin; Z88.5 Allergy status to narcotic agent; Z88.8 Allergy status to other drugs, medicaments and biological substances
CPT/HCPCS: G0260; J3301; Q9966

== ENCOUNTER → 2019-04-09 | Outpatient (CLI) | payer MEDICARE, MEDICAID ==
[~2019-04-09] MED LIST changes: -BUPIVACAINE HCL 0.25% 30 ML VIAL As Ordered ONE; -DICL75TA PO; -IBUP-1114 PO; -ISOVUE-M 200 41% 20ML VIAL (Q9966) As Ordered ONE; -KETO60IN IM; -LIDOCAINE 1% SDV INJ 30 ML VIAL As Ordered ONE; -PHEN-239 PO; -PROM50TA4 PO; -TRIAMCINOLONE ACETONIDE SUSP 40 MG/ML VIAL (J3301) As Ordered ONE; -URSO300C3 PO; -[UNRECOGNIZED DRUG - CODE] IM; -diazePAM 5 MG TAB As Ordered ONE; -oxyCODONE 5MG TAB As Ordered ONE
== END ==
LOC: M PAIN 13:30
PROVIDERS: ATTEND Nurse Practitioner Family
DX: M79.18 Myalgia, other site (principal); K21.9 Gastro-esophageal reflux disease without esophagitis; J44.9 Chronic obstructive pulmonary disease, unspecified; G43.909 Migraine, unspecified, not intractable, without status migrainosus; E78.5 Hyperlipidemia, unspecified; G25.81 Restless legs syndrome; D50.9 Iron deficiency anemia, unspecified; Z88.0 Allergy status to penicillin; Z88.5 Allergy status to narcotic agent; Z88.6 Allergy status to analgesic agent; Z88.8 Allergy status to other drugs, medicaments and biological substances; Z79.891 Long term (current) use of opiate analgesic; Z79.899 Other long term (current) drug therapy

== ENCOUNTER → 2019-05-02 | Outpatient (CLI) | payer MEDICARE, MEDICAID ==
[~2019-05-02] MED LIST changes: +BUPIVACAINE HCL 0.25% 10 ML VIAL As Ordered ONE; +BUPIVACAINE HCL 0.25% 30 ML VIAL As Ordered ONE; +DICL75TA PO; +IBUP-1114 PO; +KETO60IN IM; +PHEN-239 PO; +PROM50TA4 PO; +URSO300C3 PO; +[UNRECOGNIZED DRUG - CODE] IM
--- NOTE | 2019-05-16 00:52 | ECWPNPC ---
PATIENT NAME: DEEDEE SHEARER : 1975 GENDER: FEMALE VISIT DATE: 05/02/2019 DISCHARGE DATE: 05/02/19 1102 VISIT LOCKED DATE TIME: PHYSICIAN: DAVID NINO MD RESOURCE: DAVID NINO MD REASON FOR APPOINTMENT 1. TPI W/OUT STEROIDS ERIKA NECK/ERIKA SHOULDER HISTORY OF PRESENT ILLNESS HISTORY OF PRESENT ILLNESS: PAIN THE PATIENT DESCRIBES THE PAIN... FALL RISK SCREENING: SCREENING :NO FALLS REPORTED IN THE LAST YEAR CURRENT MEDICATIONS TAKING VITAMIN D3 2000 UNIT CAPSULE 2 CAPSULES ORALLY ONCE A DAY TAKING PROCTOZONE-HC 2.5 % CREAM 1 APPLICATION TO AFFECTED AREA RECTAL TWICE A DAY TAKING E-Z SPACER 1 SPACER ICD10: J44.9 DIRECTED WITH PRN ALBUTEROL INHALER TAKING FERROUS SULFATE 325 MG CAPSULE 1 TABLET ORALLY TWICE A DAY WITH ORANGE JUICE TAKING COLACE 100 MG CAPSULE 1 CAPSULE ORALLY BID TAKING ALAVERT ALLERGY/SINUS 5-120 MG TABLET EXTENDED RELEASE 12 HOUR 1 TABLET NEEDED ORALLY EVERY 12 HRS, NOTES: NONE RECENT TAKING PANTOPRAZOLE SODIUM 40 MG TABLET DELAYED RELEASE 1 TABLET ORALLY BID TAKING URSODIOL 300 MG CAPSULE 1 CAP ORALLY DAILY TAKING VITAMIN C ER 1000 MG TABLET EXTENDED RELEASE 1 TABLET ORALLY ONCE A DAY, NOTES: NONE RECENT TAKING GABAPENTIN 300 MG CAPSULE 2 CAP ORALLY THREE TIMES DAILY TAKING MAGNESIUM CHLORIDE - POWDER 2 TPV=267IZ (4 TSPS) ORALLY TWICE DAILY NEEDED TAKING DIHYDROERGOTAMINE MESYLATE 1 MG/ML SOLUTION 1 ML NEEDED INJECTION TWICE A DAY MAX DOSE. 3 TIMES A WEEK, NOTES: NONE RECENT-BACKORDERED TAKING VERAPAMIL HCL ER 180 MG TABLET EXTENDED RELEASE 1 TABLET ORALLY TWICE A DAY TAKING INSULIN SYRINGE-NEEDLE U-100 25G X 1 MISCELLANEOUS USE FOR 1 MG INJECTIONS FOR DIHYDROERGOTERMINE INTRAMUSCULARLY UP TO 3 TIMES IN ONE DAY OR 8 TIMES IN ONE WEEK TAKING IBUPROFEN 800 MG TABLET 1 TABLET WITH FOOD OR MILK NEEDED ORALLY TWICE DAILY NEEDED FOR MIGRAINE HEADACHES. MDD 2 , MAX 4 PER WEEK. TAKING AMITIZA 24 MCG CAPSULE 1 CAPSULE WITH FOOD ORALLY TWICE A DAY PRN CONSTIPATION TAKING ALBUTEROL SULFATE HFA 108 (90 BASE) MCG/ACT AEROSOL SOLUTION 2 PUFFS NEEDED INHALATION EVERY 4 HRS PRN SOB/WHEEZING TAKING CALCIUM 600-200 MG-UNIT TABLET 1 TABLET WITH MEALS ORALLY ONCE A DAY TAKING TIZANIDINE HCL 4 MG TABLET 1 TABLET NEEDED ORALLY TWICE A DAY; DO NOT TAKE IF TAKING BACLOFEN SAME DAY. TAKING PROMETHAZINE HCL 25 MG TABLET 1 TABLET NEEDED ORALLY EVERY 12 HRS PRN NAUSEA TAKING DICLOFENAC SODIUM 75 MG TABLET DELAYED RELEASE 1 TABLET WITH FOOD OR MILK ORALLY TWICE A DAY TAKING BACLOFEN 10 MG TABLET 2 TABLET WITH FOOD OR MILK ORALLY 2 TABS AT BED TIME TAKING PHENTERMINE HCL 37.5 MG TABLET 1 CAPSULE ORALLY ONCE A DAY TAKING MIRALAX - POWDER 17 GM ORALLY MIX WITH 8 OZ OF FLUID ONCE A DAY TAKING ATORVASTATIN CALCIUM 40 MG TABLET 1 TABLET ORALLY DAILY TAKING TOPIRAMATE 200 MG TABLET 1 1/2 TABLET ORALLY BID TAKING OXYCODONE HCL 10 MG TABLET 1 TABLET ORALLY Q 6-8 HRS PRN PAIN MDD=3 MEDICATION LIST REVIEWED AND RECONCILED WITH THE PATIENT PAST MEDICAL HISTORY GERD DDD, HERNIATED DISCS, SPINE ARTHRITIS COPD PER PATIENT CHRONIC MIGRAINES HX RIGHT ANKLE FX, LEFT FOOT FX, COCCYX FX R KNEE SCAR TISSUE OBESITY PCOS, HIRSUTISM HYPERLIPIDEMIA RESTLESS LEGS SYNDROME IRON DEFICIENCY ANEMIA CHRONIC FATIGUE IRREGULAR HEAVY MENSES ENDOMETRIOSIS INTERSTITIAL CYSTITIS REPORTED HISTORY OF COLONIC POLYPS ELEVATED 24 HR CORTISOL- SAW DR. GOMEZ, NO ADRENAL INSUFFICIENCY OCCIPITAL NEURALGIA CHRONIC PAIN DUE TO TRAUMA MYALGIA CONSTIPATION TUMOR UTERUS ALLERGIES TYLENOL: FEVER - ALLERGY ZANTAC: NUMBNESS ANDTINGLING IN HANDS AND SWOLLEN LIPS - ALLERGY HYDROCODONE-ACETAMINOPHEN: FEVER ,NAUSEA - ALLERGY PENICILLIN (FOR ALLERGIES USE ONLY): YEAST INFECTION VENOFER: JOINT SWELLING - ALLERGY SURGICAL HISTORY TONSILLECTOMY 1990 APPENDECTOMY 1977 R KNEE FX 2002 R ANKLE FX 2016 DIAGNOSTIC LAPAROSCOPY WITH REMOVAL OF SCAR TISSUE 2011 COLONOSCOPY/ ENDOSCOPY 09/26/2018 RIGHT ANKLE HARDWARE REMOVED 10/2018 RIGHT ANKLE FX AND REPAIR 2016 TOOTH EXTRACTION 1998 FAMILY HISTORY FATHER: , PANCREATITIS MOTHER: , EMPHYSEMA, ASTHMA SIBLINGS: ALIVE, SISTER JAYLA, STAGE 3A LUNG CANCER, SISTER OCTOBER HAS LEUKEMIA, SISTER YEIMI IS FROM UTERINE WITH METS TO LUNGS, LIVER, KIDNEYS; SISTER SUNDAY HAD CERVICAL CA; BROTHER ALYSSA HAS PROSTATE CA 3 BROTHER(S) , 7 SISTER(S) - HEALTHY. SOCIAL HISTORY GENERAL: TOBACCO USE ARE YOU A:NONSMOKER NEVER SMOKER HIV / HEP-C SCREENING HIV TEST OFFERED TO PATIENT:YES DATE OFFERED:08/01/2017 TEST ACCEPTED:NO HEP-C TEST OFFERED TO PATIENT:NO REASON:PATIENT DECLINED BROCHURE PROVIDED TO PATIENTYES OTHERS AT HOME: SIBLING, IN-LAW(S). EDUCATION LEVEL OF EDUCATION:COLLEGE DIET: NO MSG ,GLUTEN FREE. LANGUAGE LANGUAGES SPOKEN:CZECH DOMESTIC VIOLENCE DO YOU FEEL SAFE IN YOUR ENVIRONMENT?YES RECREATIONAL DRUG USE DRUG USE?NO EXERCISE: NONE. 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 NEEDED?NO PAIN CLINIC PFS, CLERGY, PUBLIC HEALTH REFERRALS HAS THE PATIENT BEEN EDUCATED REGARDING HIS/HER PLAN OF CARE?YES HAS THE PATIENT BEEN EDUCATED REGARDING PAIN, THE RISK FOR PAIN, THE IMPORTANCE OF EFFECTIVE PAIN MANAGEMENT, AND THE PAIN ASSESSMENT PROCESS?YES LATEX QUESTIONNAIRE LATEX ALLERGY : HAVE YOU EVER DEVELOPED ANY TYPE OF REACTION AFTER HANDLING LATEX PRODUCTS SUCH RUBBER GLOVES, CONDOMS, DIAPHRAGMS, BALLOONS, SOCKS, OR UNDERWEAR?YES LATEX ALLERGY : HAVE YOU EVER DEVELOPED ANY TYPE OF REACTION DURING OR AFTER DENTAL APPOINTMENT, VAGINAL/RECTAL EXAMINATION, SURGICAL PROCEDURE, OR ANY OTHER EXPOSURE?NO - PLEASE INDICATE :OTHER (DOCUMENT IN NOTES) SOME BANDAIDS DATE ASKED : 03/18/2019 LATEX RISK : HAVE YOU EVER HAD ANY DIFFICULTY BREATHING OR HIVES AFTER EATING OR HANDLING ANY FRUITS, OR VEGETABLES; SUCH KIWI, BANANAS, STONE FRUITS, OR CHESTNUTSNO LATEX RISK : DO YOU HAVE A PREVIOUS PERSONAL HISTORY OF MORE THAN NINE SURGERIES, SPINA BIFIDA, OR REPEATED CATHERIZATIONS? NO LATEX RISK : ARE YOU FREQUENTLY EXPOSED TO LATEX PRODUCTS IN YOUR OCCUPATION?NO CAFFEINE CAFFEINE USE?NO ADVANCE DIRECTIVE ADVANCE DIRECTIVE DISCUSSED WITH PATIENT:YES HAS FABRICE- MALGORZATA VELASCO [phone] SABIANISM [id number] NONE OTHER MARITAL STATUS: SINGLE. ALCOHOL SCREENING DID YOU HAVE A DRINK CONTAINING ALCOHOL IN THE PAST YEAR?NO POINTS0 INTERPRETATIONNEGATIVE OCCUPATION: UNEMPLOYED. SEXUAL HX HAD SEX IN THE LAST 12 MONTHS (VAGINAL, ORAL, OR ANAL)?NO HAVE YOU EVER HAD AN STD?NO REVIEWED WITH PATIENT 07/31/18 0918 JS08/29/18 REVIEWED WITH PT. AD09/05/18 1315 REVIEWED WITH PT LAS09/09/18 REVIEWED WITH PT LASREVIEWED WITH PATIENT 12/02/18 1033 JSREVIEWED WITH PATIENT 02/12/19 1445 JS01/30/19 REVIEWED WITH PT. ADREVIEWED WITH PT 02/17/19 4023 BVREVIEWED WITH PT 04/09/19 2478 BV. HOSPITALIZATION/MAJOR DIAGNOSTIC PROCEDURE ABOVE SURGERIES REVIEW OF SYSTEMS REVIEWED BY: PROVIDER: . CONSTITUTIONAL: ANY CHANGE IN YOUR MEDICAL CONDITION? YES . CHILLS NO . FEVER NO . INFECTION: DO YOU HAVE NEW INFECTIONS? NO . DO YOU HAVE HISTORY OF MRSA? NO . MUSCULOSKELETAL: ANY NEW PATTERNS OF PAIN OR NUMBNESS? NO . GASTROENTEROLOGY: ANY NEW CHANGE IN BOWEL CONTROL? NO . GENITOURINARY: ANY NEW CHANGE IN BLADDER CONTROL? NO . IS THERE A CHANCE YOU COULD BE ? NO . HEMATOLOGY/LYMPH: DO YOU TAKE ANY BLOOD THINNERS? (FOR EXAMPLE- COUMADIN, PLAVIX, AGGRENOX, PLATEL, PRADAXA, OR XARELTO) NO . WHEN WAS YOUR LAST DOSE? DATE: TIME: . NEUROLOGY: HAVE YOU FALLEN IN THE PAST 12 MONTHS? NO . ANY NEW EXTREMITY NUMBNESS OR WEAKNESS? NO . CARDIOLOGY: DO YOU HAVE A PACEMAKER OR DEFIBRILLATOR? NO . RESPIRATORY: HAVE YOU BEEN SICK IN THE PAST WEEK? NO . FEVER NO . FLU LIKE SYMPTOMS? NO . COUGH NO . INTEGUMENTARY: DO YOU HAVE ANY RASHES OR OPEN SORES? NO . ALLERGIC/IMMUNO: ARE YOU ALLERGIC TO IV DYE? NO . ANY NEW ALLERGIES? NO . PSYCHIATRIC: DO YOU HAVE THOUGHTS OF HURTING YOURSELF OR SOMEONE ELSE? NO . ARE YOU ABUSED, NEGLECTED, OR IN AN UNSAFE ENVIRONMENT? NO . ENDOCRINOLOGY: ARE YOU DIABETIC? NO . OTHER: DO YOU NEED ANY PRESCRIPTIONS? NO . IF YES, PLEASE LIST: ____ . ANY NEW PROBLEMS WITH YOUR MEDICATIONS? NO . WHEN DID YOU LAST EAT? ____1800 05-01-19 . WHEN DID YOU LAST DRINK? ____830 PM 05-01-19 . WHAT DID YOU LAST DRINK? ____WATER . NAME OF PERSON DRIVING YOU HOME? ____ . DO YOU HAVE ANY OTHER QUESTIONS OR CONCERNS NO . VITAL SIGNS WT 189.4 LBS, HT 60 IN, BMI 36.99 INDEX, BP 120/83 MM HG, HR 107 /MIN, RR 18 /MIN, TEMP 96.5 F, OXYGEN SAT % 97%, SAFE IN ENV? (Y/N) YES, NA INITIALS NV 09:45, REVIEWED BY: KG. ASSESSMENTS MYALGIA, OTHER SITE - M79.18 (PRIMARY) PROCEDURES PN TRIGGER POINT INJECTION NO STEROIDS DATE OF PROCEDURE : PRE PROCEDURE DIAGNOSIS 1. MYALGIA 2. PAIN AT BILATERAL NECK AREA AND BILATERAL SHOULDER AREA. POST PROCEDURE DIAGNOSIS 1. MYALGIA 2. PAIN AT BILATERAL NECK AREA AND BILATERAL SHOULDER AREA. PROCEDURE TRIGGER POINT INJECTION AT RIGHT AND LEFT NECK AREA AND RIGHT AND LEFT SHOULDER AREA. SURGEON DR. DAVID NINO CLINICAL PATHOLOGIST NONE ANESTHESIA LOCAL PRE PROCEDURE NOTE 44 YEAR-OLD PATIENT WITH HISTORY OF CHRONIC PAIN AT RIGHT AND LEFT NECK AREA AND RIGHT AND LEFT SHOULDER AREA. I EVALUATED THE PATIENT AND REVIEWED THE CHART. THERE IS EVIDENCE OF BANDS OF TISSUE WITH RESTRICTION OF MOVEMENT AND PRESENCE OF TRIGGER POINT AT THE AFFECTED AREA. I WENT OVER THE RISKS, ALTERNATIVES, AND BENEFITS ASSOCIATED WITH THIS PROCEDURE. THE PATIENT WOULD LIKE TO PROCEED AND GAVE CONSENT TO PERFORM THE PROCEDURE. THE PATIENT DENIES UNEXPLAINABLE WEIGHT LOSS, FEVER, CHILLS, OR NEW CHANGES IN URINARY OR BOWEL CONTROL. DESCRIPTION OF PROCEDURE THE PATIENT WAS BROUGHT TO THE PROCEDURE ROOM AND PLACED IN THE SITTING POSITION. THE AREA WAS CLEANED WITH ALCOHOL. THE PROCEDURE WAS DONE USING ASEPTIC STERILE TECHNIQUES. I CHECKED LATERALITY AND THE LEVEL WHERE THE PROCEDURE WAS GOING TO BE PERFORMED WITH THE PATIENT AND THE SUPPORTING STAFF AT THE MOMENT OF THE TIME OUT IN THE PROCEDURE ROOM. USING A 25-GAUGE NEEDLE, TRIGGER POINTS WERE INJECTED AT THE RIGHT AND LEFT NECK AREA AND RIGHT AND LEFT SHOULDER AREA WITH A TOTAL OF 40 ML OF BUPIVACAINE 0.25%. AGREED WITH THE PATIENT THE PROCEDURE WAS DONE WITHOUT STEROIDS. THERE WAS NO EVIDENCE OF BLOOD, PARESTHESIA OR CEREBROSPINAL FLUID DURING THE PROCEDURE. THE PATIENT WAS SENT TO THE RECOVERY ROOM. THE PATIENT WAS MOVING THE EXTREMITIES AND DOING WELL. THERE WAS NO COMPLICATION DURING THE PROCEDURE. POST PROCEDURE NOTE THE PATIENT WILL BE SEEN IN A FOLLOW UP IN THE NEXT FEW WEEKS. INSTRUCTIONS WERE GIVEN, QUESTIONS WERE ANSWERED, AND THE PATIENT EXPRESSED UNDERSTANDING AND AGREED WITH THE PLAN. I, DOUGLAS PEPPER, DOCUMENTED THE ABOVE INFORMATION ACTING A SCRIBE FOR DR. NINO. I HAVE REVIEWED THE ABOVE DOCUMENT, WRITTEN BY DOUGLAS PEPPER SCRCLEMENTE AND I VERIFY THAT IT IS ACCURATE. PROCEDURE CODES 02482 INJECT TRIGGER POINTS 3/> DISPOSITION & COMMUNICATION FOLLOW UP 3 WEEKS ELECTRONICALLY SIGNED BY DAVID NINO MD, MD ON 05/15/2019 AT 06:39 PM EDT DISCLAIMER : THIS IS A VISIT SUMMARY EXTRACTED FROM THE [facility] CHART. IT IS NOT A COPY OF THE [employer] PROGRESS NOTE. JOHNNIE
== END ==
LOC: M PAIN 09:45
PROVIDERS: ATTEND Anesthesiology
DX: M79.18 Myalgia, other site (principal); R53.82 Chronic fatigue, unspecified; D50.9 Iron deficiency anemia, unspecified; Z79.891 Long term (current) use of opiate analgesic; Z79.899 Other long term (current) drug therapy; Z88.0 Allergy status to penicillin; Z88.5 Allergy status to narcotic agent; Z88.8 Allergy status to other drugs, medicaments and biological substances

== ENCOUNTER → 2019-05-07 | Outpatient (CLI) | payer MEDICARE, MEDICAID ==
[~2019-05-07] MED LIST changes: -BUPIVACAINE HCL 0.25% 10 ML VIAL As Ordered ONE; -BUPIVACAINE HCL 0.25% 30 ML VIAL As Ordered ONE
[2019-05-07 15:05] LABS: HEMATOCRIT 39.1 % (36.0-47.0); HEMOGLOBIN 12.6 g/dl (12.0-15.5); MEAN CORPUSCULAR HEMOGLOBIN 30.7 pg (27.0-33.0); MEAN CORPUSCULAR HGB CONC 32.2 g/dl (32.0-36.5); MEAN CORPUSCULAR VOLUME 95.4 fl (80.0-96.0); PLATELET COUNT, AUTOMATED 212 10^3/uL (150-450); WHITE BLOOD COUNT 5.7 10^3/uL (4.0-10.0)
[2019-05-07 15:35] LABS: ALBUMIN 3.4 GM/DL (3.2-5.2); ALT/SGPT 17 U/L (12-78); BILIRUBIN,TOTAL 0.6 MG/DL (0.2-1.0); BLOOD UREA NITROGEN 15 MG/DL (7-18); CARBON DIOXIDE LEVEL 25 MEQ/L (21-32); CHLORIDE LEVEL 114 MEQ/L (98-107); CREATININE FOR GFR 0.96 MG/DL (0.55-1.30); GLOMERULAR FILTRATION RATE > 60.0 (>58); GLUCOSE, FASTING 101 MG/DL (70-100); POTASSIUM SERUM 3.7 MEQ/L (3.5-5.1); SODIUM LEVEL 143 MEQ/L (136-145); TOTAL PROTEIN 6.2 GM/DL (6.4-8.2)
== END ==
LOC: M LAB 14:04
PROVIDERS: ATTEND Obstetrics & Gynecology
DX: N93.9 Abnormal uterine and vaginal bleeding, unspecified (principal)

== ENCOUNTER → 2019-05-07 | Outpatient (CLI) | payer MEDICARE, MEDICAID ==
--- NOTE | 2019-05-07 08:31 | ECHO ---
DATE OF PROCEDURE: 05/07/2019 REFERRING PHYSICIAN: Dr. Prema Alex. INDICATION: Abnormal ECG. HEIGHT: 60 inches WEIGHT: 190 pounds 2D MEASUREMENTS: Left atrium 3.3 cm Ventricular septum 1.18 cm Posterior wall 1.24 cm Left ventricle diastole 3.8 cm Aortic annulus 1.7 cm Aortic root 2.7 cm Inferior vena cava 1.5 cm (more than 50% respiratory variation). DOPPLER MEASUREMENTS: Aortic valve velocity 123 cm/s LVOT velocity 92.0 cm/s Mitral E velocity 78.4 cm/s Mitral A velocity 66.8 cm/s Mitral deceleration time 166 ms Pulmonary acceleration time 100 m/s. No aortic regurgitation, no mitral regurgitation, no tricuspid regurgitation, no pulmonic regurgitation. MITRAL ANNULAR TISSUE DOPPLER: E-prime lateral 8.1 cm/s DESCRIPTION: Rhythm was sinus. Image quality was adequate. No pericardial effusion. This is a 2D, M-mode, color flow Doppler and pulse wave Doppler examination including mitral annular tissue Doppler. CONCLUSIONS: 1. Borderline concentric left ventricular hypertrophy. Normal regional LV wall motion and wall thickening. Normal LV systolic function. LVEF of 60% by visual estimate. 2. Otherwise normal appearing echocardiogram Doppler findings.
== END ==
LOC: M CARPUL 13:31
PROVIDERS: ATTEND Family Medicine
DX: R94.31 Abnormal electrocardiogram [ECG] [EKG] (principal); N93.9 Abnormal uterine and vaginal bleeding, unspecified

== ENCOUNTER → 2019-05-16 | Outpatient (CLI) | payer MEDICARE, MEDICAID ==
--- NOTE | 2019-05-31 02:52 | ECWPNPC ---
PATIENT NAME: DEEDEE SHEARER : 1975 GENDER: FEMALE VISIT DATE: 05/16/2019 DISCHARGE DATE: 05/16/19 1426 VISIT LOCKED DATE TIME: PHYSICIAN: STARLA CHEATHAM RESOURCE: STARLA CHEATHAM REASON FOR APPOINTMENT 1. POST TPI HISTORY OF PRESENT ILLNESS HISTORY OF PRESENT ILLNESS: HERE FOR POST PROCEDURE F/U.HAD TPI UPPER BACK/NECK ON 05/02/19 WITHOUT STEROIDS.REPORTING SOME IMPROVEMENT.CONTINUES WITH SEVERE PAIN AND SENSITIVITY AT BASE OF SKULL.ANY PRESSURE OVER THIS AREA IE LAYING ON PILLOW FEELS LIKE IT WILL TRIGGER A MIGRAINE.WILL BE EVALUATED FOR MIGRAINE AT [facility] NEXT MONTH. PAIN THE PATIENT DESCRIBES THE PAIN... FALL RISK SCREENING: SCREENING :NO FALLS REPORTED IN THE LAST YEAR CURRENT MEDICATIONS TAKING VITAMIN D3 2000 UNIT CAPSULE 2 CAPSULES ORALLY ONCE A DAY TAKING PROCTOZONE-HC 2.5 % CREAM 1 APPLICATION TO AFFECTED AREA RECTAL TWICE A DAY TAKING E-Z SPACER 1 SPACER ICD10: J44.9 DIRECTED WITH PRN ALBUTEROL INHALER TAKING FERROUS SULFATE 325 MG CAPSULE 1 TABLET ORALLY TWICE A DAY WITH ORANGE JUICE TAKING COLACE 100 MG CAPSULE 1 CAPSULE ORALLY BID TAKING ALAVERT ALLERGY/SINUS 5-120 MG TABLET EXTENDED RELEASE 12 HOUR 1 TABLET NEEDED ORALLY EVERY 12 HRS, NOTES: NONE RECENT TAKING PANTOPRAZOLE SODIUM 40 MG TABLET DELAYED RELEASE 1 TABLET ORALLY BID TAKING URSODIOL 300 MG CAPSULE 1 CAP ORALLY DAILY TAKING VITAMIN C ER 1000 MG TABLET EXTENDED RELEASE 1 TABLET ORALLY ONCE A DAY, NOTES: NONE RECENT TAKING GABAPENTIN 300 MG CAPSULE 2 CAP ORALLY THREE TIMES DAILY TAKING AMITIZA 24 MCG CAPSULE 1 CAPSULE WITH FOOD ORALLY TWICE A DAY PRN CONSTIPATION TAKING ALBUTEROL SULFATE HFA 108 (90 BASE) MCG/ACT AEROSOL SOLUTION 2 PUFFS NEEDED INHALATION EVERY 4 HRS PRN SOB/WHEEZING TAKING CALCIUM 600-200 MG-UNIT TABLET 1 TABLET WITH MEALS ORALLY ONCE A DAY TAKING TIZANIDINE HCL 4 MG TABLET 1 TABLET NEEDED ORALLY TWICE A DAY; DO NOT TAKE IF TAKING BACLOFEN SAME DAY. TAKING DICLOFENAC SODIUM 75 MG TABLET DELAYED RELEASE 1 TABLET WITH FOOD OR MILK ORALLY TWICE A DAY TAKING PROMETHAZINE HCL 25 MG TABLET 1 TABLET NEEDED ORALLY EVERY 12 HRS PRN NAUSEA TAKING PHENTERMINE HCL 37.5 MG TABLET 1 CAPSULE ORALLY ONCE A DAY TAKING BACLOFEN 10 MG TABLET 2 TABLET WITH FOOD OR MILK ORALLY 2 TABS AT BED TIME TAKING ATORVASTATIN CALCIUM 40 MG TABLET 1 TABLET ORALLY DAILY TAKING OXYCODONE HCL 10 MG TABLET 1 TABLET ORALLY Q 6-8 HRS PRN PAIN MDD=3 TAKING MAGNESIUM CHLORIDE - POWDER 2 [id number] (4 TSPS) ORALLY TWICE DAILY NEEDED TAKING DIHYDROERGOTAMINE MESYLATE 1 MG/ML SOLUTION 1 ML NEEDED INJECTION TWICE A DAY MAX DOSE. 3 TIMES A WEEK, NOTES: DHE45 TAKING VERAPAMIL HCL ER 180 MG TABLET EXTENDED RELEASE 1 TABLET ORALLY TWICE A DAY TAKING IBUPROFEN 800 MG TABLET 1 TABLET WITH FOOD OR MILK NEEDED ORALLY TWICE DAILY NEEDED FOR MIGRAINE HEADACHES. MDD 2 , MAX 4 PER WEEK. TAKING TOPIRAMATE 200 MG TABLET 1 1/2 TABLET ORALLY BID TAKING KETOROLAC TROMETHAMINE 30 MG/ML SOLUTION 1 ML NEEDED INJECTION DAILY TAKING INSULIN SYRINGE-NEEDLE U-100 25G X 1 MISCELLANEOUS USE FOR 1 MG INJECTIONS FOR DIHYDROERGOTERMINE INTRAMUSCULARLY UP TO 3 TIMES IN ONE DAY OR 8 TIMES IN ONE WEEK TAKING HAIR NOURISHING SUPPLEMENT - TABLET DIRECTED ORALLY DAILY TAKING MOBIC 15 MG TABLET 1 TABLET NEEDED ORALLY ONCE A DAY MEDICATION LIST REVIEWED AND RECONCILED WITH THE PATIENT PAST MEDICAL HISTORY GERD DDD, HERNIATED DISCS, SPINE ARTHRITIS COPD PER PATIENT CHRONIC MIGRAINES HX RIGHT ANKLE FX, LEFT FOOT FX, COCCYX FX R KNEE SCAR TISSUE OBESITY PCOS, HIRSUTISM HYPERLIPIDEMIA RESTLESS LEGS SYNDROME IRON DEFICIENCY ANEMIA CHRONIC FATIGUE IRREGULAR HEAVY MENSES ENDOMETRIOSIS INTERSTITIAL CYSTITIS REPORTED HISTORY OF COLONIC POLYPS ELEVATED 24 HR CORTISOL- SAW DR. GOMEZ, NO ADRENAL INSUFFICIENCY OCCIPITAL NEURALGIA CHRONIC PAIN DUE TO TRAUMA MYALGIA CONSTIPATION TUMOR UTERUS ALLERGIES TYLENOL: FEVER - ALLERGY ZANTAC: NUMBNESS ANDTINGLING IN HANDS AND SWOLLEN LIPS - ALLERGY HYDROCODONE-ACETAMINOPHEN: FEVER ,NAUSEA - ALLERGY PENICILLIN (FOR ALLERGIES USE ONLY): YEAST INFECTION VENOFER: JOINT SWELLING - ALLERGY SURGICAL HISTORY TONSILLECTOMY 1990 APPENDECTOMY 1977 R KNEE FX 2002 R ANKLE FX 2016 DIAGNOSTIC LAPAROSCOPY WITH REMOVAL OF SCAR TISSUE 2011 COLONOSCOPY/ ENDOSCOPY 09/26/2018 RIGHT ANKLE HARDWARE REMOVED 10/2018 RIGHT ANKLE FX AND REPAIR 2016 TOOTH EXTRACTION 1998 FAMILY HISTORY FATHER: , PANCREATITIS MOTHER: , EMPHYSEMA, ASTHMA SIBLINGS: ALIVE, SISTER JAYLA, STAGE 3A LUNG CANCER, SISTER OCTOBER HAS LEUKEMIA, SISTER YEIMI IS FROM UTERINE WITH METS TO LUNGS, LIVER, KIDNEYS; SISTER SUNDAY HAD CERVICAL CA; BROTHER ALYSSA HAS PROSTATE CA 3 BROTHER(S) , 7 SISTER(S) - HEALTHY. SOCIAL HISTORY GENERAL: TOBACCO USE ARE YOU A:NONSMOKER NEVER SMOKER HIV / HEP-C SCREENING HIV TEST OFFERED TO PATIENT:YES DATE OFFERED:08/01/2017 TEST ACCEPTED:NO HEP-C TEST OFFERED TO PATIENT:NO REASON:PATIENT DECLINED BROCHURE PROVIDED TO PATIENTYES OTHERS AT HOME: SIBLING, IN-LAW(S). EDUCATION LEVEL OF EDUCATION:COLLEGE DIET: NO MSG ,GLUTEN FREE. LANGUAGE LANGUAGES SPOKEN:ARABIC DOMESTIC VIOLENCE DO YOU FEEL SAFE IN YOUR ENVIRONMENT?YES RECREATIONAL DRUG USE DRUG USE?NO EXERCISE: NONE. LEARNING BARRIERS / SPECIAL NEEDS BARRIERS TO LEARNING?NO HEARING IMPAIRED?NO VISION IMPAIRED?NO COGNITIVELY IMPAIRED?NO READINESS TO LEARN?YES LEARNING PREFERENCES?YES :DEMONSTRATION/VERBAL INSTRUCTION LEARNING CAPABILITIES PRESENT?YES EMOTIONAL BARRIERS?NO SPECIAL DEVICES?NO ENTRY LEVEL DRAFTER NEEDED?NO PAIN CLINIC PFS, CLERGY, PUBLIC HEALTH REFERRALS HAS THE PATIENT BEEN EDUCATED REGARDING HIS/HER PLAN OF CARE?YES HAS THE PATIENT BEEN EDUCATED REGARDING PAIN, THE RISK FOR PAIN, THE IMPORTANCE OF EFFECTIVE PAIN MANAGEMENT, AND THE PAIN ASSESSMENT PROCESS?YES LATEX QUESTIONNAIRE LATEX ALLERGY : HAVE YOU EVER DEVELOPED ANY TYPE OF REACTION AFTER HANDLING LATEX PRODUCTS SUCH RUBBER GLOVES, CONDOMS, DIAPHRAGMS, BALLOONS, SOCKS, OR UNDERWEAR?YES - PLEASE INDICATE :OTHER (DOCUMENT IN NOTES) SOME BANDAIDS LATEX ALLERGY : HAVE YOU EVER DEVELOPED ANY TYPE OF REACTION DURING OR AFTER DENTAL APPOINTMENT, VAGINAL/RECTAL EXAMINATION, SURGICAL PROCEDURE, OR ANY OTHER EXPOSURE?NO LATEX RISK : HAVE YOU EVER HAD ANY DIFFICULTY BREATHING OR HIVES AFTER EATING OR HANDLING ANY FRUITS, OR VEGETABLES; SUCH KIWI, BANANAS, STONE FRUITS, OR CHESTNUTSNO LATEX RISK : DO YOU HAVE A PREVIOUS PERSONAL HISTORY OF MORE THAN NINE SURGERIES, SPINA BIFIDA, OR REPEATED CATHERIZATIONS? NO LATEX RISK : ARE YOU FREQUENTLY EXPOSED TO LATEX PRODUCTS IN YOUR OCCUPATION?NO DATE ASKED : 03/18/2019 CAFFEINE CAFFEINE USE?NO ADVANCE DIRECTIVE ADVANCE DIRECTIVE DISCUSSED WITH PATIENT:YES HAS HCP- MALGORZATA VELASCO [phone] MANDAEN [id number] NONE OTHER MARITAL STATUS: SINGLE. ALCOHOL SCREENING DID YOU HAVE A DRINK CONTAINING ALCOHOL IN THE PAST YEAR?NO POINTS0 INTERPRETATIONNEGATIVE OCCUPATION: UNEMPLOYED. SEXUAL HX HAD SEX IN THE LAST 12 MONTHS (VAGINAL, ORAL, OR ANAL)?NO HAVE YOU EVER HAD AN STD?NO REVIEWED WITH PATIENT 07/31/18 0947 JS08/29/18 REVIEWED WITH PT. AD09/05/18 1315 REVIEWED WITH PT LAS09/09/18 REVIEWED WITH PT LASREVIEWED WITH PATIENT 12/02/18 1033 JSREVIEWED WITH PATIENT 02/12/19 1445 JS01/30/19 REVIEWED WITH PT. ADREVIEWED WITH PT 02/17/19 0927 BVREVIEWED WITH PT 04/09/19 1330REVIEWED WITH PATIENT 05/16/19 1348 JS. HOSPITALIZATION/MAJOR DIAGNOSTIC PROCEDURE ABOVE SURGERIES REVIEW OF SYSTEMS REVIEWED BY: PROVIDER: STARLA HURTADO . CONSTITUTIONAL: ANY CHANGE IN YOUR MEDICAL CONDITION? NO . CHILLS NO . FEVER NO . INFECTION: DO YOU HAVE NEW INFECTIONS? NO . DO YOU HAVE HISTORY OF MRSA? NO . MUSCULOSKELETAL: ANY NEW PATTERNS OF PAIN OR NUMBNESS? YES, STATES PAIN/NUMBNESS IN HANDS, DEVELOPS IN THE COLD WEATHER. STATES SHE USED TO TAKE LYRICA FOR THIS IN THE PAST AND IT HELPED . GASTROENTEROLOGY: ANY NEW CHANGE IN BOWEL CONTROL? NO . GENITOURINARY: ANY NEW CHANGE IN BLADDER CONTROL? NO . IS THERE A CHANCE YOU COULD BE ? NO . HEMATOLOGY/LYMPH: DO YOU TAKE ANY BLOOD THINNERS? (FOR EXAMPLE- COUMADIN, PLAVIX, AGGRENOX, PLATEL, PRADAXA, OR XARELTO) NO . WHEN WAS YOUR LAST DOSE? DATE: TIME: . NEUROLOGY: HAVE YOU FALLEN IN THE PAST 12 MONTHS? NO . ANY NEW EXTREMITY NUMBNESS OR WEAKNESS? NO . CARDIOLOGY: DO YOU HAVE A PACEMAKER OR DEFIBRILLATOR? NO . RESPIRATORY: HAVE YOU BEEN SICK IN THE PAST WEEK? NO . FEVER NO . FLU LIKE SYMPTOMS? NO . COUGH NO . INTEGUMENTARY: DO YOU HAVE ANY RASHES OR OPEN SORES? NO . ALLERGIC/IMMUNO: ARE YOU ALLERGIC TO IV DYE? NO . ANY NEW ALLERGIES? NO . PSYCHIATRIC: DO YOU HAVE THOUGHTS OF HURTING YOURSELF OR SOMEONE ELSE? NO . ARE YOU ABUSED, NEGLECTED, OR IN AN UNSAFE ENVIRONMENT? NO . ENDOCRINOLOGY: ARE YOU DIABETIC? NO . OTHER: DO YOU NEED ANY PRESCRIPTIONS? NO . IF YES, PLEASE LIST: ____ . ANY NEW PROBLEMS WITH YOUR MEDICATIONS? NO . WHEN DID YOU LAST EAT? ____ . WHEN DID YOU LAST DRINK? ____ . WHAT DID YOU LAST DRINK? ____ . NAME OF PERSON DRIVING YOU HOME? ____ . DO YOU HAVE ANY OTHER QUESTIONS OR CONCERNS NO . VITAL SIGNS WT 189.4 LBS, HT 60 IN, BMI 36.99 INDEX, BP 114/82 MM HG, HR 121 /MIN, RR 18 /MIN, TEMP 97.3 F, OXYGEN SAT % 99%, SAFE IN ENV? (Y/N) YES, NA INITIALS [place] 13:52, REVIEWED BY: CHA. EXAMINATION GENERAL EXAMINATION: GENERALAWAKE,ALERT ,PLEAASANT . PSYCHAFFECT NORMAL . LUNGS:LUNG QUINTERO ARE CLEAR TO AUSCULTATION BILATERALLY. GOOD MOVEMENT OF AIR . HEART:S1, S2 IN A REGULAR RATE AND RHYTHM. NO SIGNIFICANT MURMURS, RUBS OR GALLOPS NOTED . ASSESSMENTS MYALGIA, OTHER SITE - M79.18 (PRIMARY) TREATMENT MYALGIA, OTHER SITE REFILL OXYCODONE HCL TABLET, 10 MG, 1 TABLET, ORALLY, Q 6-8 HRS PRN PAIN MDD=3, 30 DAYS, 90, REFILLS 0 NOTES: ISTOP REGISTRY REVIEWED AND DEMONSTRATES COMPLLIANCE. BRINGS IN MEDICATIONS WHICH IS APPROPRIATE FOR WHAT WAS DISPENSED. RECENT URINE TOXICOLOGY REVIEWED. NO UNAUTHORIZED MEDICATIONS. NO ILLICIT SUBSTANCES AND PRESCRIBED MEDICATIONS WERE PRESENT. , RISKS OF NARCOTIC/OPIOD MEDICATIONS INCLUDES BUT IS NOT LIMITED TO RISK OF DEPENDANCE/DEVELOPMENT OF ADDICTION, MOOD DISTURBANCE AND DEPRESSION, OSTEOPOROSIS, HORMONAL AND LABIDAL CHANGES, RESPIRATORY DEPRESSION AND . PATIENT IS ADVISED NOT TO DRIVE OR DRINK ALCOHOL WHILE ON THESE MEDICATIONS. PROCEDURE CODES FA211 ESTABILISHED PATIENT [facility] CHARGE DISPOSITION & COMMUNICATION FOLLOW UP 2 MONTHS ELECTRONICALLY SIGNED BY BRYANT MIXON ON 05/30/2019 AT 08:45 AM EST DISCLAIMER : THIS IS A VISIT SUMMARY EXTRACTED FROM THE [employer] CHART. IT IS NOT A COPY OF THE [employer] PROGRESS NOTE. JOHNNIE
== END ==
LOC: M PAIN 13:30
PROVIDERS: ATTEND Nurse Practitioner Family
DX: M79.18 Myalgia, other site (principal); K21.9 Gastro-esophageal reflux disease without esophagitis; G43.909 Migraine, unspecified, not intractable, without status migrainosus; E78.5 Hyperlipidemia, unspecified; G25.81 Restless legs syndrome; D50.9 Iron deficiency anemia, unspecified; Z88.0 Allergy status to penicillin; Z88.5 Allergy status to narcotic agent; Z88.6 Allergy status to analgesic agent; Z88.8 Allergy status to other drugs, medicaments and biological substances; Z79.891 Long term (current) use of opiate analgesic; Z79.899 Other long term (current) drug therapy

== ENCOUNTER 2019-05-19 06:14 | Day surgery (SDC) | payer MEDICARE, MEDICAID ==
[~2019-05-19] VITALS: Ht 152.4 cm; Wt 85.3 kg
[~2019-05-19 06:14] MED LIST changes: +LR 1,000 ML IV ONE
[2019-05-19] MEDS ORDERED: BUPIVACAINE/EPIN 0.25% 30 ML VIAL As Ordered ONE (06:49)
[2019-05-19] MEDS ORDERED: SILVER NITRATE APPLICATOR As Ordered ONE (06:49)
[2019-05-19] MEDS ORDERED: PROPOFOL 200 MG/20 ML VIAL As Ordered ONE (07:15)
[2019-05-19] MEDS ORDERED: LIDOCAINE 2% INJ 100 MG/5 ML SDV (FOR ANES.) As Ordered ONE (07:15)
[2019-05-19] MEDS ORDERED: fentaNYL 100 MCG/2 ML INJECTION (J3010) As Ordered ONE ×3 (07:16→08:22)
[2019-05-19] MEDS ORDERED: MIDAZOLAM INJ 2 MG/2 ML VIAL (J2250) As Ordered ONE (07:17)
[2019-05-19] MEDS ORDERED: ROCURONIUM BROMIDE 50 MG/5 ML VIAL As Ordered ONE (07:22)
[2019-05-19] MEDS ORDERED: SUGAMMADEX SODIUM 500 MG/5 ML VIAL (BRIDION) As Ordered ONE (08:10)
[2019-05-19] MEDS ORDERED: KETOROLAC 60 MG/2 ML VIAL (J1885) As Ordered ONE (08:11)
[2019-05-19] MEDS ORDERED: ONDANSETRON 4MG/2ML VIAL (J2405) As Ordered ONE (08:11)
[2019-05-19] MEDS ORDERED: METOCLOPRAMIDE INJ 10MG/2ML VIAL (J2765) As Ordered ONE (08:11)
[2019-05-19] MEDS ORDERED: dexameTHASONE 4 MG/ML 1ML VIAL (J1100) As Ordered ONE (08:11)
[2019-05-19] MEDS ORDERED: ACETAMINOPHEN 1000MG 100ML IV BTL (OFIRMEV) (J0131 PER 10MG) As Ordered ONE (08:15)
[2019-05-19] MEDS ORDERED: oxyCODONE 5MG TAB As Ordered ONE (09:24)
[2019-05-19] MEDS ORDERED: PERCOCET 5MG/325MG TAB PO PRN (09:30)
[2019-05-19] MEDS: oxyCODONE 5MG TAB PO PRN ×2 (09:30→10:00)
[2019-05-19] MEDS ORDERED: NALBUPHINE HCL 10 MG/ML AMP (J2300) IV PRN (09:30)
[2019-05-19] MEDS ORDERED: MEPERIDINE INJ 25 MG/ML VIAL (J2175) IV PRN ×2 (09:30)
[2019-05-19] MEDS ORDERED: PROMETHAZINE INJ 25 MG/ML VIAL (J2550) IV PRN (09:30)
[2019-05-19] MEDS ORDERED: MORPHINE 10 MG/ML 1ML VIAL (J2270) IV PRN (09:30)
[2019-05-19] MEDS ORDERED: HYDROMORPHONE HCL 0.5 MG/ 0.5 ML SYRINGE (J1170 PER 1) IV PRN (09:30)
[2019-05-19] MEDS ORDERED: fentaNYL 100 MCG/2 ML INJECTION (J3010) IV PRN (09:30)
[2019-05-19] MEDS ORDERED: METOCLOPRAMIDE INJ 10MG/2ML VIAL (J2765) IV PRN ×2 (09:30)
[2019-05-19] MEDS: fentaNYL 100 MCG/2 ML INJECTION (J3010) IV PRN ×8 (09:30→10:05)
[2019-05-19] MEDS ORDERED: ONDANSETRON 4MG/2ML VIAL (J2405) IV PRN ×2 (09:30)
[2019-05-19] MEDS ORDERED: NORCO, ANEXSIA 5/325MG TABLET (HYDROcodone/ACETAMINOPHEN) PO PRN ×2 (09:30)
[2019-05-19] MEDS ORDERED: KETOROLAC 30 MG/ML VIAL (J1885) IV PRN ×2 (09:30)
[2019-05-19] MEDS ORDERED: diphenhydrAMINE INJ 50MG/ML VIAL (J1200) IV PRN (09:30)
[2019-05-19] MEDS ORDERED: LR 1,000 ML IV SCH ×2 (09:30)
--- NOTE | 2019-05-19 09:42 | RO ---
DATE OF PROCEDURE: 05/19/2019 PREOPERATIVE DIAGNOSIS: Abnormal uterine bleeding, endometrial mass. POSTOPERATIVE DIAGNOSIS: Abnormal uterine bleeding, suspect endometrial polyp. PROCEDURE PERFORMED: Hysteroscopy, dilation and curettage (D/C), polypectomy (using the MyoSure device). SURGEON: Dr. Dre Corado DIRECTOR OF ENTERTAINMENT: None. ESTIMATED BLOOD LOSS: 5 mL. SPECIMENS TO PATHOLOGY: Morcellated endometrial mass. COMPLICATIONS: None. PREOPERATIVE ANTIBIOTICS: None indicated. INDICATION: Abnormal uterine bleeding. This was a combined procedure with Dr. Michel. Dr. Michel performed a laparoscopic cholecystectomy. See his operative dictation for further details. The documented procedure below immediately followed the laparoscopic cholecystectomy. DESCRIPTION OF PROCEDURE: After the completion of the laparoscopic cholecystectomy, attention was turned to the pelvis. The patient was placed in the high lithotomy position. The bladder was drained with a sterile in-and-out catheter. The sterile speculum was placed with good visualization of the cervix. The anterior lip of the cervix was grasped with a single-tooth tenaculum and downward traction was applied. The cervix was sequentially dilated with Louis dilators up to a #17. The hysteroscope was placed transcervically into the intrauterine cavity. An endometrial polypoid mass was noted in the left fundal region. The measurement of this mass was approximately 2 cm in its greatest dimension. The MyoSure device was placed adjacent to this mass and the MyoSure device was activated. The entire mass was morcellated. An additional curettage was performed with the MyoSure. The small polypoid mass was growing in the posterior uterine fundus and this was removed as well with the MyoSure device. After a light curettage using the MyoSure device, the MyoSure was removed. The hysteroscope was removed. Excellent hemostasis was noted. During the removal, the fluid deficit was approximately 350 mL. Minimal bleeding from the cervical os was noted. The single tooth tenaculum was removed. The tenaculum sites were noted be hemostatic. The patient tolerated this portion of the procedure very well. She was then extubated and the patient was transferred to the postanesthesia care unit (PACU) in good stable condition. JOHNNIE
[2019-05-19] MEDS ORDERED: hydrOXYzine 25 MG TAB PO PRN (10:30)
[2019-05-19] MEDS ORDERED: MEPERIDINE INJ 25 MG/ML VIAL (J2175) IM PRN (10:30)
--- NOTE | 2019-05-19 10:37 | RO ---
DATE OF PROCEDURE: 05/19/2019 PREOPERATIVE DIAGNOSIS: Chronic cholecystitis. POSTOPERATIVE DIAGNOSIS: Chronic cholecystitis. PROCEDURE: Laparoscopic cholecystectomy. SURGEON: Dr. Lon Michel RECREATION CLERK: None. ANESTHESIA: General. ESTIMATED BLOOD LOSS: 5. COMPLICATIONS: None. INDICATION FOR PROCEDURE: The patient is a 44-year-old female with a history of chronic cholecystitis who presents with persistent symptoms. Recommendation was to proceed with laparoscopic cholecystectomy. Risks and benefits of the procedure not limited to, but including bleeding, infection, hernia formation, damage to surrounding structures, need for further surgery were discussed in detail with the patient and informed consent was obtained and the procedure planned. DESCRIPTION OF PROCEDURE: The patient was brought back to operating room three after sufficient sedation and the abdomen was sterilely prepped and draped. Next a time out was done to confirm proper patient and proper procedure. Following that, an 8 mm incision made in the left upper quadrant. Veress needle was inserted and the abdomen was inflated to 15 mmHg. Next, a 5 mm supraumbilical midline incision made and a 5 mm OptiVu port was used to gain access and the abdomen was entered. Veress needle site was examined and there were no signs of any injury. Veress needle was then removed and a 10 mm port was placed. Next, two more 5 mm ports were placed in the right upper quadrant. The fundus of the gallbladder was elevated up towards the right shoulder. The cystic duct and cystic artery were carefully dissected free using a combination of blunt and sharp dissection. They were both then doubly clipped and cut. The gallbladder was then dissected from gallbladder fossa using electrocautery. Once the gallbladder was removed, it was placed in a 10 mm EndoCatch bag and brought out through the subxiphoid port site. Next, the electrocautery was used control hemostasis in the liver bed along with 3 grams Dot. Once that was completed, #0 Vicryl suture was used to close the fascia at the subxiphoid port site. Once that was completed, the abdomen was desufflated. Skin incisions were closed with #4-0 Vicryl subcuticular sutures. The abdomen was cleaned and dried. Steri-Strips, 4x4 and tape were applied, thus ending the procedure.
[2019-05-19 12:35] VITALS: BP 116/75
== END 2019-05-19 12:42 | disposition home or self-care (01) ==
LOC: M SDC 06:14
PROVIDERS: ATTEND Obstetrics & Gynecology
DX: K80.10 Calculus of gallbladder with chronic cholecystitis without obstruction (principal); N93.9 Abnormal uterine and vaginal bleeding, unspecified; N84.0 Polyp of corpus uteri; K58.8 Other irritable bowel syndrome; K21.9 Gastro-esophageal reflux disease without esophagitis; G43.909 Migraine, unspecified, not intractable, without status migrainosus; G25.81 Restless legs syndrome; J44.9 Chronic obstructive pulmonary disease, unspecified; M79.7 Fibromyalgia; F41.9 Anxiety disorder, unspecified; F32.9 Major depressive disorder, single episode, unspecified; E27.40 Unspecified adrenocortical insufficiency; E78.5 Hyperlipidemia, unspecified; Z79.899 Other long term (current) drug therapy; Z88.0 Allergy status to penicillin; Z88.8 Allergy status to other drugs, medicaments and biological substances
CPT/HCPCS: 36415; 47562; 58558; 81025; 86850; 86900; 86901; 88304; 88305; J0131; J1100; J1885; J2175; J2250; J2405; J2765; J3010

== ENCOUNTER → 2019-06-10 | Outpatient (CLI) | payer MEDICARE, MEDICAID ==
[~2019-06-10] MED LIST changes: -LR 1,000 ML IV ONE
--- NOTE | 2019-06-26 02:06 | ECWPNPC ---
PATIENT NAME: DEEDEE SHEARER : 1975 GENDER: FEMALE VISIT DATE: 06/10/2019 DISCHARGE DATE: 06/10/19 1423 VISIT LOCKED DATE TIME: PHYSICIAN: STARLA CHEATHAM RESOURCE: STARLA CHEATHAM REASON FOR APPOINTMENT 1. POST TPI, AND LBP HISTORY OF PRESENT ILLNESS HISTORY OF PRESENT ILLNESS: HERE FOR F/U OF CHRONIC NECK AND LBP.RECENT ABDOMINAL LAPROSCOPIC CHOLECYSTECTOMY AND FIBROID UTERINE TUMOR REMOVAL.SINCE SURGERY PATIENT STATES THAT VAGINAL BLEEDING HAS STOPPED.COMPLAINING OF ABDOMINAL PAIN SINCE SURGERY AND THIS WAS EVALUATED AT SURGEONS OFFICE SINCE SURGERY.CHIEF AREA OF PAIN IS LOW BACK.RATING LBP 9/10VAS. PAIN THE PATIENT DESCRIBES THE PAIN... FALL RISK SCREENING: SCREENING :NO FALLS REPORTED IN THE LAST YEAR CURRENT MEDICATIONS TAKING VITAMIN D3 2000 UNIT CAPSULE 2 CAPSULES ORALLY ONCE A DAY TAKING PROCTOZONE-HC 2.5 % CREAM 1 APPLICATION TO AFFECTED AREA RECTAL TWICE A DAY TAKING E-Z SPACER 1 SPACER ICD10: J44.9 DIRECTED WITH PRN ALBUTEROL INHALER TAKING FERROUS SULFATE 325 MG CAPSULE 1 TABLET ORALLY TWICE A DAY WITH ORANGE JUICE TAKING COLACE 100 MG CAPSULE 1 CAPSULE ORALLY BID TAKING ALAVERT ALLERGY/SINUS 5-120 MG TABLET EXTENDED RELEASE 12 HOUR 1 TABLET NEEDED ORALLY EVERY 12 HRS, NOTES: NONE RECENT TAKING PANTOPRAZOLE SODIUM 40 MG TABLET DELAYED RELEASE 1 TABLET ORALLY BID TAKING URSODIOL 300 MG CAPSULE 1 CAP ORALLY DAILY TAKING VITAMIN C ER 1000 MG TABLET EXTENDED RELEASE 1 TABLET ORALLY ONCE A DAY, NOTES: NONE RECENT TAKING GABAPENTIN 300 MG CAPSULE 2 CAP ORALLY THREE TIMES DAILY TAKING AMITIZA 24 MCG CAPSULE 1 CAPSULE WITH FOOD ORALLY TWICE A DAY PRN CONSTIPATION TAKING ALBUTEROL SULFATE HFA 108 (90 BASE) MCG/ACT AEROSOL SOLUTION 2 PUFFS NEEDED INHALATION EVERY 4 HRS PRN SOB/WHEEZING TAKING CALCIUM 600-200 MG-UNIT TABLET 1 TABLET WITH MEALS ORALLY ONCE A DAY TAKING TIZANIDINE HCL 4 MG TABLET 1 TABLET NEEDED ORALLY TWICE A DAY; DO NOT TAKE IF TAKING BACLOFEN SAME DAY. TAKING DICLOFENAC SODIUM 75 MG TABLET DELAYED RELEASE 1 TABLET WITH FOOD OR MILK ORALLY TWICE A DAY TAKING PROMETHAZINE HCL 25 MG TABLET 1 TABLET NEEDED ORALLY EVERY 12 HRS PRN NAUSEA TAKING PHENTERMINE HCL 37.5 MG TABLET 1 CAPSULE ORALLY ONCE A DAY TAKING BACLOFEN 10 MG TABLET 2 TABLET WITH FOOD OR MILK ORALLY 2 TABS AT BED TIME TAKING ATORVASTATIN CALCIUM 40 MG TABLET 1 TABLET ORALLY DAILY TAKING MAGNESIUM CHLORIDE - POWDER 2 [id number] (4 TSPS) ORALLY TWICE DAILY NEEDED TAKING DIHYDROERGOTAMINE MESYLATE 1 MG/ML SOLUTION 1 ML NEEDED INJECTION TWICE A DAY MAX DOSE. 3 TIMES A WEEK, NOTES: DHE45 TAKING VERAPAMIL HCL ER 180 MG TABLET EXTENDED RELEASE 1 TABLET ORALLY TWICE A DAY TAKING IBUPROFEN 800 MG TABLET 1 TABLET WITH FOOD OR MILK NEEDED ORALLY TWICE DAILY NEEDED FOR MIGRAINE HEADACHES. MDD 2 , MAX 4 PER WEEK. TAKING TOPIRAMATE 200 MG TABLET 1 1/2 TABLET ORALLY BID TAKING KETOROLAC TROMETHAMINE 30 MG/ML SOLUTION 1 ML NEEDED INJECTION DAILY TAKING INSULIN SYRINGE-NEEDLE U-100 25G X 1 MISCELLANEOUS USE FOR 1 MG INJECTIONS FOR DIHYDROERGOTERMINE INTRAMUSCULARLY UP TO 3 TIMES IN ONE DAY OR 8 TIMES IN ONE WEEK TAKING HAIR NOURISHING SUPPLEMENT - TABLET DIRECTED ORALLY DAILY TAKING MOBIC 15 MG TABLET 1 TABLET NEEDED ORALLY ONCE A DAY TAKING OXYCODONE HCL 10 MG TABLET 1 TABLET ORALLY Q 6-8 HRS PRN PAIN MDD=3 MEDICATION LIST REVIEWED AND RECONCILED WITH THE PATIENT PAST MEDICAL HISTORY GERD DDD, HERNIATED DISCS, SPINE ARTHRITIS COPD PER PATIENT CHRONIC MIGRAINES HX RIGHT ANKLE FX, LEFT FOOT FX, COCCYX FX R KNEE SCAR TISSUE OBESITY PCOS, HIRSUTISM HYPERLIPIDEMIA RESTLESS LEGS SYNDROME IRON DEFICIENCY ANEMIA CHRONIC FATIGUE IRREGULAR HEAVY MENSES ENDOMETRIOSIS INTERSTITIAL CYSTITIS REPORTED HISTORY OF COLONIC POLYPS ELEVATED 24 HR CORTISOL- SAW DR. GOMEZ, NO ADRENAL INSUFFICIENCY OCCIPITAL NEURALGIA CHRONIC PAIN DUE TO TRAUMA MYALGIA CONSTIPATION TUMOR UTERUS ALLERGIES TYLENOL: FEVER - ALLERGY ZANTAC: NUMBNESS ANDTINGLING IN HANDS AND SWOLLEN LIPS - ALLERGY HYDROCODONE-ACETAMINOPHEN: FEVER ,NAUSEA - ALLERGY PENICILLIN (FOR ALLERGIES USE ONLY): YEAST INFECTION VENOFER: JOINT SWELLING - ALLERGY BANDAIDS/ADHESIVES: RASH - ALLERGY SURGICAL HISTORY TONSILLECTOMY 1990 APPENDECTOMY 1977 R KNEE FX 2002 R ANKLE FX 2016 DIAGNOSTIC LAPAROSCOPY WITH REMOVAL OF SCAR TISSUE 2011 COLONOSCOPY/ ENDOSCOPY 09/26/2018 RIGHT ANKLE HARDWARE REMOVED 10/2018 RIGHT ANKLE FX AND REPAIR 2015 TOOTH EXTRACTION 1999 GALLBLADDER REMOVAL UTERINE TUMOR REMOVAL FAMILY HISTORY FATHER: , PANCREATITIS MOTHER: , EMPHYSEMA, ASTHMA SIBLINGS: ALIVE, SISTER JAYLA, STAGE 3A LUNG CANCER, SISTER OCTOBER HAS LEUKEMIA, SISTER YEIMI IS FROM UTERINE WITH METS TO LUNGS, LIVER, KIDNEYS; SISTER SUNDAY HAD CERVICAL CA; BROTHER ALYSSA HAS PROSTATE CA 3 BROTHER(S) , 7 SISTER(S) - HEALTHY. SOCIAL HISTORY GENERAL: TOBACCO USE ARE YOU A:NONSMOKER NEVER SMOKER HIV / HEP-C SCREENING HIV TEST OFFERED TO PATIENT:YES DATE OFFERED:08/01/2017 TEST ACCEPTED:NO HEP-C TEST OFFERED TO PATIENT:NO REASON:PATIENT DECLINED BROCHURE PROVIDED TO PATIENTYES OTHERS AT HOME: SIBLING, IN-LAW(S). EDUCATION LEVEL OF EDUCATION:COLLEGE DIET: NO MSG ,GLUTEN FREE. LANGUAGE LANGUAGES SPOKEN:TURKISH DOMESTIC VIOLENCE DO YOU FEEL SAFE IN YOUR ENVIRONMENT?YES RECREATIONAL DRUG USE DRUG USE?NO EXERCISE: NONE. 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 NEEDED?NO PAIN CLINIC PFS, CLERGY, PUBLIC HEALTH REFERRALS HAS THE PATIENT BEEN EDUCATED REGARDING HIS/HER PLAN OF CARE?YES HAS THE PATIENT BEEN EDUCATED REGARDING PAIN, THE RISK FOR PAIN, THE IMPORTANCE OF EFFECTIVE PAIN MANAGEMENT, AND THE PAIN ASSESSMENT PROCESS?YES LATEX QUESTIONNAIRE LATEX ALLERGY : HAVE YOU EVER DEVELOPED ANY TYPE OF REACTION AFTER HANDLING LATEX PRODUCTS SUCH RUBBER GLOVES, CONDOMS, DIAPHRAGMS, BALLOONS, SOCKS, OR UNDERWEAR?YES - PLEASE INDICATE :OTHER (DOCUMENT IN NOTES) SOME BANDAIDS LATEX ALLERGY : HAVE YOU EVER DEVELOPED ANY TYPE OF REACTION DURING OR AFTER DENTAL APPOINTMENT, VAGINAL/RECTAL EXAMINATION, SURGICAL PROCEDURE, OR ANY OTHER EXPOSURE?NO LATEX RISK : HAVE YOU EVER HAD ANY DIFFICULTY BREATHING OR HIVES AFTER EATING OR HANDLING ANY FRUITS, OR VEGETABLES; SUCH KIWI, BANANAS, STONE FRUITS, OR CHESTNUTSNO LATEX RISK : DO YOU HAVE A PREVIOUS PERSONAL HISTORY OF MORE THAN NINE SURGERIES, SPINA BIFIDA, OR REPEATED CATHERIZATIONS? NO LATEX RISK : ARE YOU FREQUENTLY EXPOSED TO LATEX PRODUCTS IN YOUR OCCUPATION?NO DATE ASKED : 03/18/2019 CAFFEINE CAFFEINE USE?NO ADVANCE DIRECTIVE ADVANCE DIRECTIVE DISCUSSED WITH PATIENT:YES HAS FABRICE- MALGORZATA VELASCO [phone] WORSHIP [id number] NONE OTHER MARITAL STATUS: SINGLE. ALCOHOL SCREENING DID YOU HAVE A DRINK CONTAINING ALCOHOL IN THE PAST YEAR?NO POINTS0 INTERPRETATIONNEGATIVE OCCUPATION: UNEMPLOYED. SEXUAL HX HAD SEX IN THE LAST 12 MONTHS (VAGINAL, ORAL, OR ANAL)?NO HAVE YOU EVER HAD AN STD?NO REVIEWED WITH PATIENT 07/31/18 0947 JS08/29/18 REVIEWED WITH PT. AD09/05/18 1315 REVIEWED WITH PT LAS09/09/18 REVIEWED WITH PT LASREVIEWED WITH PATIENT 12/02/18 1033 JSREVIEWED WITH PATIENT 02/12/19 1445 JS01/30/19 REVIEWED WITH PT. ADREVIEWED WITH PT 02/17/19 0927 BVREVIEWED WITH PT 04/09/19 1330REVIEWED WITH PATIENT 05/16/19 1348 JSREVIEWED WITH PATIENT 06/10/19 1339 JS. HOSPITALIZATION/MAJOR DIAGNOSTIC PROCEDURE ABOVE SURGERIES REVIEW OF SYSTEMS REVIEWED BY: PROVIDER: STARLA HURTADO . CONSTITUTIONAL: ANY CHANGE IN YOUR MEDICAL CONDITION? NO . CHILLS NO . FEVER NO . INFECTION: DO YOU HAVE NEW INFECTIONS? YES, THINKS SHE HAS A POST-SURGERY INFECTION AT INCISION SITE, VERY PAINFUL TO PATIENT. STATES THAT THE PA AT THE SURGICAL OFFICE SAID IT WAS FINE BUT PATIENT DOESN'T THINK IT'S OK . DO YOU HAVE HISTORY OF MRSA? NO . MUSCULOSKELETAL: ANY NEW PATTERNS OF PAIN OR NUMBNESS? NO . GASTROENTEROLOGY: ANY NEW CHANGE IN BOWEL CONTROL? YES, STATES CONSTIPATION HAS WORSENED SINCE GALLBLADDER REMOVAL . GENITOURINARY: ANY NEW CHANGE IN BLADDER CONTROL? NO . IS THERE A CHANCE YOU COULD BE ? NO . HEMATOLOGY/LYMPH: DO YOU TAKE ANY BLOOD THINNERS? (FOR EXAMPLE- COUMADIN, PLAVIX, AGGRENOX, PLATEL, PRADAXA, OR XARELTO) NO . WHEN WAS YOUR LAST DOSE? DATE: TIME: . NEUROLOGY: HAVE YOU FALLEN IN THE PAST 12 MONTHS? NO . ANY NEW EXTREMITY NUMBNESS OR WEAKNESS? NO . CARDIOLOGY: DO YOU HAVE A PACEMAKER OR DEFIBRILLATOR? NO . RESPIRATORY: HAVE YOU BEEN SICK IN THE PAST WEEK? NO . FEVER NO . FLU LIKE SYMPTOMS? NO . COUGH NO . INTEGUMENTARY: DO YOU HAVE ANY RASHES OR OPEN SORES? NO . ALLERGIC/IMMUNO: ARE YOU ALLERGIC TO IV DYE? YES . ANY NEW ALLERGIES? NO . PSYCHIATRIC: DO YOU HAVE THOUGHTS OF HURTING YOURSELF OR SOMEONE ELSE? NO . ARE YOU ABUSED, NEGLECTED, OR IN AN UNSAFE ENVIRONMENT? NO . ENDOCRINOLOGY: ARE YOU DIABETIC? NO . OTHER: DO YOU NEED ANY PRESCRIPTIONS? NO . IF YES, PLEASE LIST: ____ . ANY NEW PROBLEMS WITH YOUR MEDICATIONS? NO . WHEN DID YOU LAST EAT? ____ . WHEN DID YOU LAST DRINK? ____ . WHAT DID YOU LAST DRINK? ____ . NAME OF PERSON DRIVING YOU HOME? ____ . DO YOU HAVE ANY OTHER QUESTIONS OR CONCERNS NO . VITAL SIGNS WT 193.4 LBS, HT 60 IN, BMI 37.77 INDEX, BP 113/72 MM HG, HR 89 /MIN, RR 18 /MIN, TEMP 97.2 F, OXYGEN SAT % 96%, SAFE IN ENV? (Y/N) YES, NA INITIALS AW 1321, REVIEWED BY: JS. EXAMINATION GENERAL EXAMINATION: LUNGS: LUNG SOUNDS ARE CLEAR . HEART: HEART RATE REGULAR . MUSCULOSKELETAL:*, MUSCLE STRENGTH TESTING 5/5 BILATERAL LOWER EXTREMITIES., ,PALPATION: POSITIVE FOR PAIN OVER L/S SPINE. POSITIVE FOR PAIN OVER L/S PARSPINALS.SPECIFIC POINT TENDERNESS OVER BILAT L3/4-L4/5 LUMBR FACETS WITH FACET LOADING . DIAGNOSTIC TESTS REVIEWED MRI L/S SPINE-MRI L/S SPINE-09/18/18. DIAGNOSTIC:MRI L/S SPINE . ASSESSMENTS SPONDYLOSIS OF LUMBOSACRAL REGION WITHOUT MYELOPATHY OR RADICULOPATHY - M47.817 (PRIMARY) TREATMENT SPONDYLOSIS OF LUMBOSACRAL REGION WITHOUT MYELOPATHY OR RADICULOPATHY CONTINUE OXYCODONE HCL TABLET, 10 MG, 1 TABLET, ORALLY, Q 6-8 HRS PRN PAIN MDD=3 NOTES: L3/4-L4/5 BILAT LFBT, ISTOP REGISTRY REVIEWED AND DEMONSTRATES COMPLLIANCE. BRINGS IN MEDICATIONS WHICH IS APPROPRIATE FOR WHAT WAS DISPENSED. RECENT URINE TOXICOLOGY REVIEWED. NO UNAUTHORIZED MEDICATIONS. NO ILLICIT SUBSTANCES AND PRESCRIBED MEDICATIONS WERE PRESENT. , RISKS OF NARCOTIC/OPIOD MEDICATIONS INCLUDES BUT IS NOT LIMITED TO RISK OF DEPENDANCE/DEVELOPMENT OF ADDICTION, MOOD DISTURBANCE AND DEPRESSION, OSTEOPOROSIS, HORMONAL AND LABIDAL CHANGES, RESPIRATORY DEPRESSION AND . PATIENT IS ADVISED NOT TO DRIVE OR DRINK ALCOHOL WHILE ON THESE MEDICATIONS. PREVENTIVE MEDICINE PAIN CLINIC TEACHING: PROCEDURE TEACHING REVIEWED INFORMATION ON THERAPEUTIC FACET JOINT INJECTION PROCEDURE WITH PATIENT. ALSO REVIEWED PRE-PROCEDURE INSTRUCTIONS. PATIENT VERBALIZED AN UNDERSTANDING. WALE GUTIERREZ 06/10/2019 2:27:22 PM > . PROCEDURE CODES FA211 ESTABILISHED PATIENT [facility] CHARGE DISPOSITION & COMMUNICATION FOLLOW UP POST (REASON: L3/4-L4/5 BILAT LFBT) ELECTRONICALLY SIGNED BY STARLA HURTADO, BRYANT ON 06/25/2019 AT 03:23 PM EST DISCLAIMER : THIS IS A VISIT SUMMARY EXTRACTED FROM THE [employer] CHART. IT IS NOT A COPY OF THE [employer] PROGRESS NOTE. [place]
== END ==
LOC: M PAIN 13:15
PROVIDERS: ATTEND Nurse Practitioner Family
DX: M47.817 Spondylosis without myelopathy or radiculopathy, lumbosacral region (principal); G89.29 Other chronic pain; K21.9 Gastro-esophageal reflux disease without esophagitis; G43.909 Migraine, unspecified, not intractable, without status migrainosus; E78.5 Hyperlipidemia, unspecified; G25.81 Restless legs syndrome; D50.9 Iron deficiency anemia, unspecified; M79.18 Myalgia, other site; Z88.0 Allergy status to penicillin; Z88.5 Allergy status to narcotic agent; Z88.6 Allergy status to analgesic agent; Z88.8 Allergy status to other drugs, medicaments and biological substances; Z91.09 Other allergy status, other than to drugs and biological substances; Z91.041 Radiographic dye allergy status; Z79.891 Long term (current) use of opiate analgesic; Z79.899 Other long term (current) drug therapy

== ENCOUNTER → 2019-06-11 | Outpatient (CLI) | payer MEDICARE, MEDICAID ==
--- NOTE | 2019-06-11 16:26 | REPMRS ---
Patient History Family history of prostate cancer at age 45 in brother, ovarian cancer under age 50 in sister, endometrial cancer at age 55 in sister. No Hormone Replacement Therapy 3D TOMOSYNTHESIS WAS PERFORMED. [facility] lifetime risk for breast cancer is 15.0%. Digital Mammo Screening Bilat: June 11, 2019 - Exam #: [id number] Bilateral CC and MLO view(s) were taken. Technologist: Ling Dias, Technologist Prior study comparison: April 24, 2018, bilateral digital woman screen mammo, performed at [facility]. June 26, 2014, bilateral digital woman screen mammo, performed at [facility]. FINDINGS: There are scattered fibroglandular densities. There has been no change in the appearance of the mammogram from the prior studies. There is a mild amount of residual fibroglandular tissue which is fairly symmetric. There is no interval development of dominant mass, architectural distortion, or clustered microcalcification suggestive of malignancy. Assessment: BI-RADS/ACR category 1 mammogram. Negative Mammogram. Recommendation Routine screening mammogram in 1 year (for women over age 40). This mammogram was interpreted with the aid of an FDA-approved computer-aided dectection system. Electronically Signed By: Lon Cruz MD 06/11/19 3053
== END ==
LOC: M RAD 15:24
PROVIDERS: ATTEND Obstetrics & Gynecology
DX: Z12.31 Encounter for screening mammogram for malignant neoplasm of breast (principal); Z80.41 Family history of malignant neoplasm of ovary; Z80.49 Family history of malignant neoplasm of other genital organs

== ENCOUNTER → 2019-06-18 | Outpatient (CLI) | payer MEDICARE, MEDICAID ==
--- NOTE | 2019-06-18 13:45 | REP ---
Clinical: Periumbilical pain. Technique: Real time saldaña scale and color evaluation using linear high frequency and curved array transducers. Findings: Ultrasound examination of the periumbilical region in relation to the multiple incision sites for prior cholecystectomy demonstrates subcutaneous granulation tissue. No abnormal fluid collection, mass lesion, or hernia is appreciated. Impression: No fluid collection, mass or hernia identified. Electronically Signed by Jose Yin MD 06/18/2019 01:36 P
== END ==
LOC: M RAD 12:16
PROVIDERS: ATTEND Nurse Practitioner
DX: R10.33 Periumbilical pain (principal); N81.6 Rectocele; Z48.815 Encounter for surgical aftercare following surgery on the digestive system

== ENCOUNTER → 2019-06-23 | Outpatient (CLI) | payer MEDICARE ==
[2019-06-23 16:11] LABS: HEMATOCRIT 39.9 % (36.0-47.0); HEMOGLOBIN 12.6 g/dl (12.0-15.5); MEAN CORPUSCULAR HEMOGLOBIN 30.4 pg (27.0-33.0); MEAN CORPUSCULAR HGB CONC 31.6 g/dl (32.0-36.5); MEAN CORPUSCULAR VOLUME 96.1 fl (80.0-96.0); PLATELET COUNT, AUTOMATED 227 10^3/uL (150-450); RED BLOOD COUNT 4.15 10^6/uL (4.00-5.40); WHITE BLOOD COUNT 6.3 10^3/uL (4.0-10.0)
[2019-06-23 16:37] LABS: ALBUMIN 3.6 GM/DL (3.2-5.2); ALT/SGPT 24 U/L (12-78); BILIRUBIN,TOTAL 0.3 MG/DL (0.2-1.0); BLOOD UREA NITROGEN 14 MG/DL (7-18); C REACTIVE PROTEIN QUANTITATIV < 0.30 MG/DL (0.00-0.30); CALCIUM LEVEL 8.6 MG/DL (8.5-10.1); CARBON DIOXIDE LEVEL 23 MEQ/L (21-32); CHLORIDE LEVEL 114 MEQ/L (98-107); CREATININE FOR GFR 0.82 MG/DL (0.55-1.30); FERRITIN 30 NG/ML (8-252); GLOMERULAR FILTRATION RATE > 60.0 (>58); GLUCOSE, FASTING 98 MG/DL (70-100); IRON (FE) 39 UG/DL (50-170); PERCENT SATURATION 12.3 % (13.2-45.0); POTASSIUM SERUM 3.3 MEQ/L (3.5-5.1); SODIUM LEVEL 147 MEQ/L (136-145); TOTAL IRON BINDING CAPACITY 318 UG/DL (250-450); TOTAL PROTEIN 6.5 GM/DL (6.4-8.2)
[2019-06-23 16:44] LABS: ERYTHROCYTE SEDIMENTATION RATE 10 mm/hr (0-20)
== END ==
LOC: M LAB 15:23
PROVIDERS: ATTEND Family Medicine
DX: M25.562 Pain in left knee (principal); R10.10 Upper abdominal pain, unspecified; Z86.2 Personal history of diseases of the blood and blood-forming organs and certain disorders involving the immune mechanism

== ENCOUNTER → 2019-07-29 | Outpatient (REF) | payer MEDICARE, MEDICAID | LOC: M SFHCPLAZ 10:09 | PROVIDERS: ATTEND Family Medicine | DX: R61 Generalized hyperhidrosis (principal); E87.0 Hyperosmolality and hypernatremia; E87.6 Hypokalemia; Z86.2 Personal history of diseases of the blood and blood-forming organs and certain disorders involving the immune mechanism; E55.9 Vitamin D deficiency, unspecified ==

== ENCOUNTER → 2019-07-31 | Outpatient (CLI) | payer MEDICARE, MEDICAID ==
[2019-07-31 11:10] LABS: BASO % 0.5 % (0.0-1.0); EOS % 0.6 % (0.0-3.0); HEMATOCRIT 43.3 % (36.0-47.0); LYMPH # 2.3 10^3/uL (1.5-5.0); LYMPH % 34.7 % (24.0-44.0); MEAN CORPUSCULAR HEMOGLOBIN 29.1 pg (27.0-33.0); MEAN CORPUSCULAR VOLUME 96.9 fl (80.0-96.0); MONO # 0.5 10^3/uL (0.0-0.8); MONO % 7.2 % (0.0-5.0); NEUTROPHILS # 3.7 10^3/uL (1.5-8.5); NEUTROPHILS % 56.4 % (36.0-66.0); PLATELET COUNT, AUTOMATED 259 10^3/uL (150-450); RED BLOOD COUNT 4.47 10^6/uL (4.00-5.40); WHITE BLOOD COUNT 6.5 10^3/uL (4.0-10.0)
[2019-07-31 11:45] LABS: BLOOD UREA NITROGEN 22 MG/DL (7-18); CALCIUM LEVEL 8.5 MG/DL (8.5-10.1); CARBON DIOXIDE LEVEL 27 MEQ/L (21-32); CHLORIDE LEVEL 111 MEQ/L (98-107); CREATININE FOR GFR 0.76 MG/DL (0.55-1.30); GLOMERULAR FILTRATION RATE > 60.0 (>58); GLUCOSE, FASTING 95 MG/DL (70-100); IRON (FE) 48 UG/DL (50-170); PERCENT SATURATION 13.5 % (13.2-45.0); POTASSIUM SERUM 4.2 MEQ/L (3.5-5.1); SODIUM LEVEL 144 MEQ/L (136-145); TOTAL 25(OH) VITAMIN D 38.6 NG/ML (30.0-100.0); TOTAL IRON BINDING CAPACITY 355 UG/DL (250-450)
== END ==
LOC: M LAB 10:27
PROVIDERS: ATTEND Family Medicine
DX: E87.6 Hypokalemia (principal); E87.0 Hyperosmolality and hypernatremia; R61 Generalized hyperhidrosis; Z86.2 Personal history of diseases of the blood and blood-forming organs and certain disorders involving the immune mechanism; Z79.899 Other long term (current) drug therapy

== ENCOUNTER → 2019-08-04 | Outpatient (CLI) | payer MEDICARE, MEDICAID ==
--- NOTE | 2019-08-20 01:17 | ECWPNPC ---
PATIENT NAME: DEEDEE SHEARER : 1975 GENDER: FEMALE VISIT DATE: 08/04/2019 DISCHARGE DATE: 08/04/19 1351 VISIT LOCKED DATE TIME: PHYSICIAN: STARLA CHEATHAM RESOURCE: STARLA CHEATHAM REASON FOR APPOINTMENT 1. PER DR Aldana 07/29/2019 HISTORY OF PRESENT ILLNESS HISTORY OF PRESENT ILLNESS: HERE FOR FOLLOW-UP AND MEDICINE MANAGEMENT PER REQUEST OF DR. NINO. APPARENTLY PATIENT STARTED LYRICA 150 MG MORNING AND NIGHT THAT SHE HAD A SAMPLE AT HOME FROM ANOTHER DOCTOR AND HER PAIN HAS GOTTEN REMARKABLY BETTER. CURRENTLY USING LYRICA 150 MG TWICE A DAY AND OXYCODONE 10 MG 3 TIMES A DAY AND OCCASIONALLY TIZANIDINE AT NIGHT FOR SLEEP. RATING PAIN LEVEL A 7/10 VAS. PAIN THE PATIENT DESCRIBES THE PAIN... FALL RISK SCREENING: SCREENING :NO FALLS REPORTED IN THE LAST YEAR CURRENT MEDICATIONS TAKING VERAPAMIL HCL ER 180 MG TABLET EXTENDED RELEASE 1 TABLET ORALLY TWICE A DAY TAKING PROMETHAZINE HCL 25 MG TABLET 1 TABLET NEEDED ORALLY EVERY 12 HRS PRN NAUSEA TAKING PROCTOZONE-HC 2.5 % CREAM 1 APPLICATION TO AFFECTED AREA RECTAL TWICE A DAY TAKING ALAVERT ALLERGY/SINUS 5-120 MG TABLET EXTENDED RELEASE 12 HOUR 1 TABLET NEEDED ORALLY EVERY 12 HRS, NOTES: NONE RECENT TAKING ATORVASTATIN CALCIUM 40 MG TABLET 1 TABLET ORALLY DAILY TAKING MAGNESIUM CHLORIDE - POWDER 2 LOF=[id number] (4 TSPS) ORALLY TWICE DAILY NEEDED TAKING HAIR NOURISHING SUPPLEMENT - TABLET DIRECTED ORALLY DAILY TAKING ALBUTEROL SULFATE HFA 108 (90 BASE) MCG/ACT AEROSOL SOLUTION 2 PUFFS NEEDED INHALATION EVERY 4 HRS PRN SOB/WHEEZING TAKING VITAMIN C ER 1000 MG TABLET EXTENDED RELEASE 1 TABLET ORALLY ONCE A DAY TAKING PANTOPRAZOLE SODIUM 40 MG TABLET DELAYED RELEASE 1 TABLET ORALLY BID TAKING E-Z SPACER 1 SPACER ICD10: J44.9 DIRECTED WITH PRN ALBUTEROL INHALER TAKING SENOKOT S TAKING VITAMIN D3 2000 UNIT CAPSULE 2 CAPSULES ORALLY ONCE A DAY TAKING FERROUS SULFATE 325 MG CAPSULE 1 TABLET ORALLY TWICE A DAY WITH ORANGE JUICE TAKING RIZATRIPTAN BENZOATE 10 MG TABLET 1 TABLET ORALLY ONCE A DAY TAKING AIMOVIG 70 MG/ML SOLUTION AUTO-INJECTOR DIRECTED SUBCUTANEOUS TAKING OXYCODONE HCL 10 MG TABLET 1 TABLET ORALLY Q 6-8 HRS PRN PAIN MDD=3 TAKING LYRICA 150 MG CAPSULE 1 CAPSULE ORALLY BID, NOTES: SAMPLE BOTTLE FROM OLD PCP NOT-TAKING TIZANIDINE HCL 4 MG TABLET 1 TABLET NEEDED ORALLY AT BEDTIME NOT-TAKING GABAPENTIN 300 MG CAPSULE 2 CAP ORALLY THREE TIMES DAILY NOT-TAKING INSULIN SYRINGE-NEEDLE U-100 25G X 1 MISCELLANEOUS USE FOR 1 MG INJECTIONS FOR DIHYDROERGOTERMINE INTRAMUSCULARLY UP TO 3 TIMES IN ONE DAY OR 8 TIMES IN ONE WEEK NOT-TAKING AMOXICILLIN-POT CLAVULANATE 875-125 MG TABLET 1 TABLET ORALLY EVERY 12 HRS NOT-TAKING FLUCONAZOLE 150 MG TABLET 1 TABLET ORALLY MEDICATION LIST REVIEWED AND RECONCILED WITH THE PATIENT PAST MEDICAL HISTORY GERD DDD, HERNIATED DISCS, SPINE ARTHRITIS COPD PER PATIENT CHRONIC MIGRAINES HX RIGHT ANKLE FX, LEFT FOOT FX, COCCYX FX R KNEE SCAR TISSUE OBESITY PCOS, HIRSUTISM HYPERLIPIDEMIA RESTLESS LEGS SYNDROME IRON DEFICIENCY ANEMIA CHRONIC FATIGUE IRREGULAR HEAVY MENSES ENDOMETRIOSIS INTERSTITIAL CYSTITIS REPORTED HISTORY OF COLONIC POLYPS ELEVATED 24 HR CORTISOL- SAW DR. GOMEZ, NO ADRENAL INSUFFICIENCY OCCIPITAL NEURALGIA CHRONIC PAIN DUE TO TRAUMA MYALGIA CONSTIPATION TUMOR UTERUS ALLERGIES TYLENOL: FEVER - CONTRAINDICATION ZANTAC: NUMBNESS ANDTINGLING IN HANDS AND SWOLLEN LIPS - SIDE EFFECTS HYDROCODONE-ACETAMINOPHEN: FEVER ,NAUSEA - CONTRAINDICATION PENICILLIN (FOR ALLERGIES USE ONLY): YEAST INFECTION - SIDE EFFECTS VENOFER: JOINT SWELLING - ALLERGY BANDAIDS/ADHESIVES: RASH - ALLERGY SURGICAL HISTORY TONSILLECTOMY 1990 APPENDECTOMY 1977 R KNEE FX 2002 R ANKLE FX 2016 DIAGNOSTIC LAPAROSCOPY WITH REMOVAL OF SCAR TISSUE 2011 COLONOSCOPY/ ENDOSCOPY 09/26/2018 RIGHT ANKLE HARDWARE REMOVED 10/2018 RIGHT ANKLE FX AND REPAIR 2015 TOOTH EXTRACTION 1998 GALLBLADDER REMOVAL UTERINE TUMOR REMOVAL FAMILY HISTORY FATHER: , PANCREATITIS MOTHER: , EMPHYSEMA, ASTHMA SIBLINGS: ALIVE, SISTER JAYLA, STAGE 3A LUNG CANCER, SISTER OCTOBER HAS LEUKEMIA, SISTER YEIMI IS FROM UTERINE WITH METS TO LUNGS, LIVER, KIDNEYS; SISTER SUNDAY HAD CERVICAL CA; BROTHER ALYSSA HAS PROSTATE CA 3 BROTHER(S) , 7 SISTER(S) - HEALTHY. SOCIAL HISTORY GENERAL: TOBACCO USE ARE YOU A:NONSMOKER NEVER SMOKER HIV / HEP-C SCREENING HIV TEST OFFERED TO PATIENT:YES DATE OFFERED:08/01/2017 TEST ACCEPTED:NO HEP-C TEST OFFERED TO PATIENT:NO REASON:PATIENT DECLINED BROCHURE PROVIDED TO PATIENTYES OTHERS AT HOME: SIBLING, IN-LAW(S). EDUCATION LEVEL OF EDUCATION:COLLEGE DIET: NO MSG ,GLUTEN FREE. LANGUAGE LANGUAGES SPOKEN:BURKINAN DOMESTIC VIOLENCE DO YOU FEEL SAFE IN YOUR ENVIRONMENT?YES RECREATIONAL DRUG USE DRUG USE?NO EXERCISE: NONE. LEARNING BARRIERS / SPECIAL NEEDS BARRIERS TO LEARNING?NO HEARING IMPAIRED?NO VISION IMPAIRED?NO COGNITIVELY IMPAIRED?NO READINESS TO LEARN?YES LEARNING PREFERENCES?YES :DEMONSTRATION/VERBAL INSTRUCTION LEARNING CAPABILITIES PRESENT?YES EMOTIONAL BARRIERS?NO SPECIAL DEVICES?NO SHAREPOINT ADMINISTRATOR NEEDED?NO PAIN CLINIC PFS, CLERGY, PUBLIC HEALTH REFERRALS WAS THE PROVIDER NOTIFIED OF ANY PERTINENT INFO?YES HAS THE PATIENT BEEN EDUCATED REGARDING HIS/HER PLAN OF CARE?YES HAS THE PATIENT BEEN EDUCATED REGARDING PAIN, THE RISK FOR PAIN, THE IMPORTANCE OF EFFECTIVE PAIN MANAGEMENT, AND THE PAIN ASSESSMENT PROCESS?YES LATEX QUESTIONNAIRE LATEX ALLERGY : HAVE YOU EVER DEVELOPED ANY TYPE OF REACTION AFTER HANDLING LATEX PRODUCTS SUCH RUBBER GLOVES, CONDOMS, DIAPHRAGMS, BALLOONS, SOCKS, OR UNDERWEAR?YES - PLEASE INDICATE :OTHER (DOCUMENT IN NOTES) SOME BANDAIDS LATEX ALLERGY : HAVE YOU EVER DEVELOPED ANY TYPE OF REACTION DURING OR AFTER DENTAL APPOINTMENT, VAGINAL/RECTAL EXAMINATION, SURGICAL PROCEDURE, OR ANY OTHER EXPOSURE?NO LATEX RISK : HAVE YOU EVER HAD ANY DIFFICULTY BREATHING OR HIVES AFTER EATING OR HANDLING ANY FRUITS, OR VEGETABLES; SUCH KIWI, BANANAS, STONE FRUITS, OR CHESTNUTSNO LATEX RISK : DO YOU HAVE A PREVIOUS PERSONAL HISTORY OF MORE THAN NINE SURGERIES, SPINA BIFIDA, OR REPEATED CATHERIZATIONS? NO LATEX RISK : ARE YOU FREQUENTLY EXPOSED TO LATEX PRODUCTS IN YOUR OCCUPATION?NO DATE ASKED : 08/04/2019 CAFFEINE CAFFEINE USE?NO ADVANCE DIRECTIVE ADVANCE DIRECTIVE DISCUSSED WITH PATIENT:YES HAS HCP- MALGORZATA VELASCO [phone] MANDAEN [id number] NONE OTHER MARITAL STATUS: SINGLE. ALCOHOL SCREENING DID YOU HAVE A DRINK CONTAINING ALCOHOL IN THE PAST YEAR?NO POINTS0 INTERPRETATIONNEGATIVE OCCUPATION: UNEMPLOYED. SEXUAL HX HAD SEX IN THE LAST 12 MONTHS (VAGINAL, ORAL, OR ANAL)?NO HAVE YOU EVER HAD AN STD?NO REVIEWED WITH PATIENT 07/31/18 0947 JS08/29/18 REVIEWED WITH PT. AD09/05/18 1315 REVIEWED WITH PT LAS09/09/18 REVIEWED WITH PT LASREVIEWED WITH PATIENT 12/02/18 1033 JSREVIEWED WITH PATIENT 02/12/19 1445 JS01/30/19 REVIEWED WITH PT. ADREVIEWED WITH PT 02/17/19 0927 BVREVIEWED WITH PT 04/09/19 1330REVIEWED WITH PATIENT 05/16/19 1348 JSREVIEWED WITH PATIENT 06/10/19 1339 JS. HOSPITALIZATION/MAJOR DIAGNOSTIC PROCEDURE ABOVE SURGERIES REVIEW OF SYSTEMS REVIEWED BY: PROVIDER: STARLA HURTADO . CONSTITUTIONAL: ANY CHANGE IN YOUR MEDICAL CONDITION? NO . CHILLS NO . FEVER NO . INFECTION: DO YOU HAVE NEW INFECTIONS? NO . DO YOU HAVE HISTORY OF MRSA? NO . MUSCULOSKELETAL: ANY NEW PATTERNS OF PAIN OR NUMBNESS? YES, PT STATES PAIN IS BETTER SINCE SHE HAS STARTED LYRICA . GASTROENTEROLOGY: ANY NEW CHANGE IN BOWEL CONTROL? NO . GENITOURINARY: ANY NEW CHANGE IN BLADDER CONTROL? NO . IS THERE A CHANCE YOU COULD BE ? NO . HEMATOLOGY/LYMPH: DO YOU TAKE ANY BLOOD THINNERS? (FOR EXAMPLE- COUMADIN, PLAVIX, AGGRENOX, PLATEL, PRADAXA, OR XARELTO) NO . WHEN WAS YOUR LAST DOSE? DATE: TIME: . NEUROLOGY: HAVE YOU FALLEN IN THE PAST 12 MONTHS? NO . ANY NEW EXTREMITY NUMBNESS OR WEAKNESS? NO . CARDIOLOGY: DO YOU HAVE A PACEMAKER OR DEFIBRILLATOR? NO . RESPIRATORY: HAVE YOU BEEN SICK IN THE PAST WEEK? NO . FEVER NO . FLU LIKE SYMPTOMS? NO . COUGH NO . INTEGUMENTARY: DO YOU HAVE ANY RASHES OR OPEN SORES? NO . ALLERGIC/IMMUNO: ARE YOU ALLERGIC TO IV DYE? NO . ANY NEW ALLERGIES? NO . PSYCHIATRIC: DO YOU HAVE THOUGHTS OF HURTING YOURSELF OR SOMEONE ELSE? NO . ARE YOU ABUSED, NEGLECTED, OR IN AN UNSAFE ENVIRONMENT? NO . ENDOCRINOLOGY: ARE YOU DIABETIC? NO . OTHER: DO YOU NEED ANY PRESCRIPTIONS? NO . IF YES, PLEASE LIST: ____ . ANY NEW PROBLEMS WITH YOUR MEDICATIONS? YES, STATES WHITE PILLS GIVE HER A BURNING IN HER THROAT . WHEN DID YOU LAST EAT? ____ . WHEN DID YOU LAST DRINK? ____ . WHAT DID YOU LAST DRINK? ____ . NAME OF PERSON DRIVING YOU HOME? ____ . DO YOU HAVE ANY OTHER QUESTIONS OR CONCERNS NO . PT STATES HER PAIN IS BETTER SINCE SHE TAKES LYRICA. VITAL SIGNS WT 197.8 LBS, HT 60 IN, BMI 38.63 INDEX, BP 128/65 MM HG, HR 85 /MIN, RR 18 /MIN, TEMP 98.8 F, OXYGEN SAT % 95, SAFE IN ENV? (Y/N) Y, LMP: 07/23/2019M. ARABELLA SHERDHARA II @ 1327. EXAMINATION GENERAL EXAMINATION: LUNGS: LUNG SOUNDS ARE CLEAR . HEART: HEART RATE REGULAR . MUSCULOSKELETAL:*, MUSCLE STRENGTH TESTING 5/5 BILATERAL LOWER EXTREMITIES., ,PALPATION: POSITIVE FOR PAIN OVER L/S SPINE. POSITIVE FOR PAIN OVER L/S PARSPINALS.SPECIFIC POINT TENDERNESS OVER BILAT L3/4-L4/5 LUMBR FACETS WITH FACET LOADING . DIAGNOSTIC TESTS REVIEWED MRI L/S SPINE-MRI L/S SPINE-09/18/18. DIAGNOSTIC:MRI L/S SPINE . ASSESSMENTS FIBROMYALGIA - M79.7 (PRIMARY) TREATMENT FIBROMYALGIA REFILL LYRICA CAPSULE, 150 MG, 1 CAPSULE, ORALLY, BID MDD2, 30 DAYS, 60, REFILLS 2, NOTES: SAMPLE BOTTLE FROM OLD PCP DECREASE OXYCODONE HCL TABLET, 10 MG, 1 TABLET, ORALLY, Q12H BID MDD2, 30 DAYS, 60, REFILLS 0 CONTINUE TIZANIDINE HCL TABLET, 4 MG, 1 TABLET NEEDED, ORALLY, AT BEDTIME NOTES: ISTOP REGISTRY REVIEWED AND DEMONSTRATES COMPLLIANCE.BRINGS IN MEDICATIONS WHICH IS APPROPRIATE FOR WHAT WAS DISPENSED. RECENT URINE TOXICOLOGY REVIEWED. NO UNAUTHORIZED MEDICATIONS. NO ILLICIT SUBSTANCES AND PRESCRIBED MEDICATIONS WERE PRESENT. , RISKS S OF NARCOTIC/OPIOD MEDICATIONS INCLUDES BUT IS NOT LIMITED TO RISK OF DEPENDANCE/DEVELOPMENT OF ADDICTION, MOOD DISTURBANCE AND DEPRESSION, OSTEOPOROSIS, HORMONAL AND LABIDAL CHANGES, RESPIRATORY DEPRESSION AND . PATIENT IS ADVISED NOT TO DRIVE OR DRINK ALCOHOL WHILE ON THESE MEDICATIONS. PROCEDURE CODES FA211 ESTABILISHED PATIENT [facility] CHARGE DISPOSITION & COMMUNICATION FOLLOW UP HAS APPOINTMENT W ELECTRONICALLY SIGNED BY BRYANT MIXON ON 08/19/2019 AT 04:18 PM EST DISCLAIMER : THIS IS A VISIT SUMMARY EXTRACTED FROM THE [employer] CHART. IT IS NOT A COPY OF THE [employer] PROGRESS NOTE. MTDD
== END ==
LOC: M PAIN 13:15
PROVIDERS: ATTEND Nurse Practitioner Family
DX: M79.7 Fibromyalgia (principal); K21.9 Gastro-esophageal reflux disease without esophagitis; G43.909 Migraine, unspecified, not intractable, without status migrainosus; E78.5 Hyperlipidemia, unspecified; G25.81 Restless legs syndrome; D50.9 Iron deficiency anemia, unspecified; Z88.0 Allergy status to penicillin; Z88.5 Allergy status to narcotic agent; Z88.6 Allergy status to analgesic agent; Z88.8 Allergy status to other drugs, medicaments and biological substances; Z91.09 Other allergy status, other than to drugs and biological substances; Z79.899 Other long term (current) drug therapy

== ENCOUNTER → 2019-08-05 | Outpatient (CLI) | payer MEDICARE, MEDICAID ==
[~2019-08-05] MED LIST changes: +BUPIVACAINE HCL 0.25% 30 ML VIAL As Ordered ONE; +ISOVUE-M 300 61% 15ML VIAL (Q9967) As Ordered ONE; +LIDOCAINE 1% SDV INJ 30 ML VIAL As Ordered ONE; +TRIAMCINOLONE ACETONIDE SUSP 40 MG/ML VIAL (J3301) As Ordered ONE; +diazePAM 5 MG TAB As Ordered ONE; +oxyCODONE 5MG TAB As Ordered ONE
--- NOTE | 2019-08-05 11:15 | REP ---
C-ARM VIEWS LOWER LUMBAR SPINE: CLINICAL HISTORY: Pain. Two C-arm views of the lower lumbar spine performed during facet injection performed by Dr. Santos. [place] are seen along the lower lumbar facet joints. 18 seconds of fluoroscopy time utilized. Electronically Signed by Lon Cruz MD 08/05/2019 07:20 P
--- NOTE | 2019-08-15 04:11 | ECWPNPC ---
PATIENT NAME: DEEDEE SHEARER : 1975 GENDER: FEMALE VISIT DATE: 08/05/2019 DISCHARGE DATE: 08/05/19 1023 VISIT LOCKED DATE TIME: PHYSICIAN: DAVID NINO MD RESOURCE: DAVID NINO MD REASON FOR APPOINTMENT 1. L4-L5 / L5-S1 BILAT LFBT HISTORY OF PRESENT ILLNESS HISTORY OF PRESENT ILLNESS: PAIN THE PATIENT DESCRIBES THE PAIN... FALL RISK SCREENING: SCREENING :NO FALLS REPORTED IN THE LAST YEAR CURRENT MEDICATIONS TAKING VERAPAMIL HCL ER 180 MG TABLET EXTENDED RELEASE 1 TABLET ORALLY TWICE A DAY, NOTES: 08-04-192299 TAKING PROMETHAZINE HCL 25 MG TABLET 1 TABLET NEEDED ORALLY EVERY 12 HRS PRN NAUSEA, NOTES: MORE THAN 1 WEEK TAKING PROCTOZONE-HC 2.5 % CREAM 1 APPLICATION TO AFFECTED AREA RECTAL TWICE A DAY, NOTES: NONE RECENTLY TAKING ALAVERT ALLERGY/SINUS 5-120 MG TABLET EXTENDED RELEASE 12 HOUR 1 TABLET NEEDED ORALLY EVERY 12 HRS, NOTES: NONE RECENTLY TAKING ATORVASTATIN CALCIUM 40 MG TABLET 1 TABLET ORALLY DAILY, NOTES: 08-04-192299 TAKING MAGNESIUM CHLORIDE - POWDER 2 [id number]=[id number] (4 TSPS) ORALLY TWICE DAILY NEEDED, NOTES: NNNE RECENTLY TAKING HAIR NOURISHING SUPPLEMENT - TABLET DIRECTED ORALLY DAILY, NOTES: NONE RECENTLY TAKING ALBUTEROL SULFATE HFA 108 (90 BASE) MCG/ACT AEROSOL SOLUTION 2 PUFFS NEEDED INHALATION EVERY 4 HRS PRN SOB/WHEEZING, NOTES: NONE RECENTLY TAKING VITAMIN C ER 1000 MG TABLET EXTENDED RELEASE 1 TABLET ORALLY ONCE A DAY, NOTES: NONE RECENTLY TAKING PANTOPRAZOLE SODIUM 40 MG TABLET DELAYED RELEASE 1 TABLET ORALLY BID, NOTES: 08-04-192299 TAKING E-Z SPACER 1 SPACER ICD10: J44.9 DIRECTED WITH PRN ALBUTEROL INHALER TAKING SENOKOT S THREE TIMES A DAY, NOTES: 08-04-20192299 TAKING VITAMIN D3 2000 UNIT CAPSULE 2 CAPSULES ORALLY ONCE A DAY, NOTES: 08-04-192299 TAKING FERROUS SULFATE 325 MG CAPSULE 1 TABLET ORALLY TWICE A DAY WITH ORANGE JUICE, NOTES: NONE RECENTLY TAKING RIZATRIPTAN BENZOATE 10 MG TABLET 1 TABLET ORALLY ONCE A DAY, NOTES: NONE RECENTLY TAKING AIMOVIG 70 MG/ML SOLUTION AUTO-INJECTOR DIRECTED SUBCUTANEOUS , NOTES: 07-16-2020 TAKING LYRICA 150 MG CAPSULE 1 CAPSULE ORALLY BID MDD2, NOTES: 08-04-192299 TAKING OXYCODONE HCL 10 MG TABLET 1 TABLET ORALLY Q12H BID MDD2, NOTES: 08-04-192299 TAKING TIZANIDINE HCL 4 MG TABLET 1 TABLET NEEDED ORALLY AT BEDTIME, NOTES: 08-04-192299 TAKING MOBIC 15 MG TABLET 1 TABLET ORALLY ONCE A DAY NEEDED, NOTES: 08-04-192299 NOT-TAKING GABAPENTIN 300 MG CAPSULE 2 CAP ORALLY THREE TIMES DAILY NOT-TAKING INSULIN SYRINGE-NEEDLE U-100 25G X 1 MISCELLANEOUS USE FOR 1 MG INJECTIONS FOR DIHYDROERGOTERMINE INTRAMUSCULARLY UP TO 3 TIMES IN ONE DAY OR 8 TIMES IN ONE WEEK NOT-TAKING AMOXICILLIN-POT CLAVULANATE 875-125 MG TABLET 1 TABLET ORALLY EVERY 12 HRS NOT-TAKING FLUCONAZOLE 150 MG TABLET 1 TABLET ORALLY MEDICATION LIST REVIEWED AND RECONCILED WITH THE PATIENT PAST MEDICAL HISTORY GERD DDD, HERNIATED DISCS, SPINE ARTHRITIS COPD PER PATIENT CHRONIC MIGRAINES HX RIGHT ANKLE FX, LEFT FOOT FX, COCCYX FX R KNEE SCAR TISSUE OBESITY PCOS, HIRSUTISM HYPERLIPIDEMIA RESTLESS LEGS SYNDROME IRON DEFICIENCY ANEMIA CHRONIC FATIGUE IRREGULAR HEAVY MENSES ENDOMETRIOSIS INTERSTITIAL CYSTITIS REPORTED HISTORY OF COLONIC POLYPS ELEVATED 24 HR CORTISOL- SAW DR. GOMEZ, NO ADRENAL INSUFFICIENCY OCCIPITAL NEURALGIA CHRONIC PAIN DUE TO TRAUMA MYALGIA CONSTIPATION TUMOR UTERUS ALLERGIES TYLENOL: FEVER - ALLERGY ZANTAC: NUMBNESS ANDTINGLING IN HANDS AND SWOLLEN LIPS - ALLERGY HYDROCODONE-ACETAMINOPHEN: FEVER ,NAUSEA - ALLERGY PENICILLIN (FOR ALLERGIES USE ONLY): YEAST INFECTION VENOFER: JOINT SWELLING - ALLERGY BANDAIDS/ADHESIVES: RASH - ALLERGY SURGICAL HISTORY TONSILLECTOMY 1990 APPENDECTOMY 1977 R KNEE FX 2002 R ANKLE FX 2016 DIAGNOSTIC LAPAROSCOPY WITH REMOVAL OF SCAR TISSUE 2011 COLONOSCOPY/ ENDOSCOPY 09/26/2018 RIGHT ANKLE HARDWARE REMOVED 10/2018 RIGHT ANKLE FX AND REPAIR 2016 TOOTH EXTRACTION 1999 GALLBLADDER REMOVAL 04/2019 UTERINE TUMOR REMOVAL 04/2019 FAMILY HISTORY FATHER: , PANCREATITIS MOTHER: , EMPHYSEMA, ASTHMA SIBLINGS: ALIVE, SISTER JAYLA, STAGE 3A LUNG CANCER, SISTER CRISTAL HAS LEUKEMIA, SISTER YEIMI IS FROM UTERINE WITH METS TO LUNGS, LIVER, KIDNEYS; SISTER SUNDAY HAD CERVICAL CA; BROTHER ALYSSA HAS PROSTATE CA 3 BROTHER(S) , 7 SISTER(S) - HEALTHY. SOCIAL HISTORY GENERAL: TOBACCO USE ARE YOU A:NONSMOKER NEVER SMOKER HIV / HEP-C SCREENING HIV TEST OFFERED TO PATIENT:YES DATE OFFERED:08/01/2017 TEST ACCEPTED:NO HEP-C TEST OFFERED TO PATIENT:NO REASON:PATIENT DECLINED BROCHURE PROVIDED TO PATIENTYES OTHERS AT HOME: SIBLING, IN-LAW(S). EDUCATION LEVEL OF EDUCATION:COLLEGE DIET: NO MSG ,GLUTEN FREE. LANGUAGE LANGUAGES SPOKEN:BELARUSIAN DOMESTIC VIOLENCE DO YOU FEEL SAFE IN YOUR ENVIRONMENT?YES RECREATIONAL DRUG USE DRUG USE?NO EXERCISE: NONE. LEARNING BARRIERS / SPECIAL NEEDS BARRIERS TO LEARNING?NO HEARING IMPAIRED?NO VISION IMPAIRED?NO COGNITIVELY IMPAIRED?NO READINESS TO LEARN?YES LEARNING PREFERENCES?YES :DEMONSTRATION/VERBAL INSTRUCTION LEARNING CAPABILITIES PRESENT?YES EMOTIONAL BARRIERS?NO SPECIAL DEVICES?NO LATHE OPERATOR CONTACT LENS NEEDED?NO PAIN CLINIC PFS, CLERGY, PUBLIC HEALTH REFERRALS HAS THE PATIENT BEEN EDUCATED REGARDING HIS/HER PLAN OF CARE?YES HAS THE PATIENT BEEN EDUCATED REGARDING PAIN, THE RISK FOR PAIN, THE IMPORTANCE OF EFFECTIVE PAIN MANAGEMENT, AND THE PAIN ASSESSMENT PROCESS?YES LATEX QUESTIONNAIRE LATEX ALLERGY : HAVE YOU EVER DEVELOPED ANY TYPE OF REACTION AFTER HANDLING LATEX PRODUCTS SUCH RUBBER GLOVES, CONDOMS, DIAPHRAGMS, BALLOONS, SOCKS, OR UNDERWEAR?YES LATEX ALLERGY : HAVE YOU EVER DEVELOPED ANY TYPE OF REACTION DURING OR AFTER DENTAL APPOINTMENT, VAGINAL/RECTAL EXAMINATION, SURGICAL PROCEDURE, OR ANY OTHER EXPOSURE?NO - PLEASE INDICATE :OTHER (DOCUMENT IN NOTES) SOME BANDAIDS DATE ASKED : 03/18/2019 LATEX RISK : HAVE YOU EVER HAD ANY DIFFICULTY BREATHING OR HIVES AFTER EATING OR HANDLING ANY FRUITS, OR VEGETABLES; SUCH KIWI, BANANAS, STONE FRUITS, OR CHESTNUTSNO LATEX RISK : DO YOU HAVE A PREVIOUS PERSONAL HISTORY OF MORE THAN NINE SURGERIES, SPINA BIFIDA, OR REPEATED CATHERIZATIONS? NO LATEX RISK : ARE YOU FREQUENTLY EXPOSED TO LATEX PRODUCTS IN YOUR OCCUPATION?NO CAFFEINE CAFFEINE USE?NO ADVANCE DIRECTIVE ADVANCE DIRECTIVE DISCUSSED WITH PATIENT:YES HAS HCP- MALGORZATA VELASCO [phone] SIKHISM [id number] NONE OTHER MARITAL STATUS: SINGLE. ALCOHOL SCREENING DID YOU HAVE A DRINK CONTAINING ALCOHOL IN THE PAST YEAR?NO POINTS0 INTERPRETATIONNEGATIVE OCCUPATION: UNEMPLOYED. SEXUAL HX HAD SEX IN THE LAST 12 MONTHS (VAGINAL, ORAL, OR ANAL)?NO HAVE YOU EVER HAD AN STD?NO REVIEWED WITH PATIENT 07/31/18 0972 JS08/29/18 REVIEWED WITH PT. AD09/05/18 1315 REVIEWED WITH PT LAS09/09/18 REVIEWED WITH PT LASREVIEWED WITH PATIENT 12/02/18 1033 JSPRE ADMIT DONE FOR 08-05-2019 KEGREVIEWED WITH PATIENT 02/12/19 1445 JS01/30/19 REVIEWED WITH PT. ADREVIEWED WITH PT 02/17/19 0927 BVREVIEWED WITH PT 04/09/19 1330REVIEWED WITH PATIENT 05/16/19 1348 JSREVIEWED WITH PATIENT 06/10/19 1339 JS. HOSPITALIZATION/MAJOR DIAGNOSTIC PROCEDURE ABOVE SURGERIES REVIEW OF SYSTEMS REVIEWED BY: PROVIDER: . CONSTITUTIONAL: ANY CHANGE IN YOUR MEDICAL CONDITION? NO . CHILLS NO . FEVER NO . INFECTION: DO YOU HAVE NEW INFECTIONS? NO . DO YOU HAVE HISTORY OF MRSA? NO . MUSCULOSKELETAL: ANY NEW PATTERNS OF PAIN OR NUMBNESS? NO . GASTROENTEROLOGY: ANY NEW CHANGE IN BOWEL CONTROL? NO . GENITOURINARY: ANY NEW CHANGE IN BLADDER CONTROL? NO . IS THERE A CHANCE YOU COULD BE ? NO . HEMATOLOGY/LYMPH: DO YOU TAKE ANY BLOOD THINNERS? (FOR EXAMPLE- COUMADIN, PLAVIX, AGGRENOX, PLATEL, PRADAXA, OR XARELTO) NO . WHEN WAS YOUR LAST DOSE? DATE: TIME: . NEUROLOGY: HAVE YOU FALLEN IN THE PAST 12 MONTHS? NO . ANY NEW EXTREMITY NUMBNESS OR WEAKNESS? NO . CARDIOLOGY: DO YOU HAVE A PACEMAKER OR DEFIBRILLATOR? NO . RESPIRATORY: HAVE YOU BEEN SICK IN THE PAST WEEK? NO . FEVER NO . FLU LIKE SYMPTOMS? NO . COUGH NO . INTEGUMENTARY: DO YOU HAVE ANY RASHES OR OPEN SORES? NO . ALLERGIC/IMMUNO: ARE YOU ALLERGIC TO IV DYE? NO . ANY NEW ALLERGIES? NO . PSYCHIATRIC: DO YOU HAVE THOUGHTS OF HURTING YOURSELF OR SOMEONE ELSE? NO . ARE YOU ABUSED, NEGLECTED, OR IN AN UNSAFE ENVIRONMENT? NO . ENDOCRINOLOGY: ARE YOU DIABETIC? NO . OTHER: DO YOU NEED ANY PRESCRIPTIONS? NO . IF YES, PLEASE LIST: ____ . ANY NEW PROBLEMS WITH YOUR MEDICATIONS? NO . WHEN DID YOU LAST EAT? 08-04-20191999 . WHEN DID YOU LAST DRINK? 08-05-2019 0300 . WHAT DID YOU LAST DRINK? WATER . NAME OF PERSON DRIVING YOU HOME? ____ . DO YOU HAVE ANY OTHER QUESTIONS OR CONCERNS NO . VITAL SIGNS WT 198.4 LBS, HT 60 IN, BMI 38.74 INDEX, BP 122/66 MM HG, HR 69 /MIN, RR 18 /MIN, TEMP 96.3 F, OXYGEN SAT % 96%, NA INITIALS AW 0854, REVIEWED BY: ROSELYN. ASSESSMENTS SPONDYLOSIS WITHOUT MYELOPATHY OR RADICULOPATHY, LUMBAR REGION - M47.816 (PRIMARY) SPONDYLOSIS OF LUMBOSACRAL REGION WITHOUT MYELOPATHY OR RADICULOPATHY - M47.817 TREATMENT SPONDYLOSIS OF LUMBOSACRAL REGION WITHOUT MYELOPATHY OR RADICULOPATHY SMC FACET BLOCK (PAIN)[id number] PROCEDURES PN LUMBAR FACET BLOCK THERAPEUTIC PRE PROCEDURE DIAGNOSIS LUMBAR SPONDYLOSIS, LUMBOSACRAL SPONDYLOSIS POST PROCEDURE DIAGNOSIS LUMBAR SPONDYLOSIS, LUMBOSACRAL SPONDYLOSIS PROCEDURE RIGHT AND LEFT L4-L5 AND RIGHT AND LEFT L5-S1 LUMBAR FACET THERAPEUTIC BLOCK SURGEON DR. DAVID NINO SPOT WELDER LINE NONE ANESTHESIA LOCAL PRE PROCEDURE NOTE THE PATIENT HAS A HISTORY OF CHRONIC LOW BACK PAIN. I EVALUATED THE PATIENT AND REVIEWED THE CHART. I WENT OVER THE RISKS, ALTERNATIVES, AND BENEFITS ASSOCIATED WITH THIS PROCEDURE. THE PATIENT WOULD LIKE TO PROCEED AND GIVES CONSENT TO PERFORM THE PROCEDURE. THE PATIENT DENIES UNEXPLAINABLE WEIGHT LOSS, FEVER, CHILLS, OR NEW CHANGES IN URINARY OR BOWEL CONTROL DESCRIPTION OF PROCEDURE THE PATIENT WAS BROUGHT TO THE PROCEDURE ROOM AND PLACED IN THE PRONE POSITION. THE LUMBOSACRAL AREA WAS CLEANED WITH CHLORAPREP SOLUTION AND DRAPED ASEPTICALLY. THE PROCEDURE WAS DONE UNDER STERILE CONDITIONS. I CHECKED LATERALITY AND THE LEVEL WHERE THE PROCEDURE WAS GOING TO BE PERFORMED WITH THE PATIENT AND THE SUPPORTING STAFF AT THE MOMENT OF THE TIME OUT IN THE PROCEDURE ROOM. UNDER FLUOROSCOPIC GUIDANCE, THE TARGET POINT WAS SELECTED AT THE RIGHT AND LEFT L4-L5 AND RIGHT AND LEFT L5-S1 FACET JOINTS. TARGET POINT WAS SELECTED AFTER LATERAL ROTATION AND TILT OF THE MAGNIFIER OF THE C-ARM. LIDOCAINE 0.5% WAS USED TO NUMB THE SKIN AND THE SUBCUTANEOUS TISSUE BELOW IT. SPINAL NEEDLES, 22-GAUGE, WERE ADVANCED UNDER FLUOROSCOPIC GUIDANCE AND FOLLOWING PATIENT FEEDBACK UNTIL THE TARGETS WERE TOUCHED. THE POSITION OF THE NEEDLES WAS VERIFIED WITH AP AND LATERAL VIEWS. AFTER PROPER POSITION OF THE NEEDLES WAS ACHIEVED, ISOVUE-M DYE 30% 0.1 ML WAS INJECTED SHOWING ADEQUATE SPREAD OF THE DYE. THEN A SOLUTION OF 1.9 ML OF BUPIVACAINE 0.125% OF KENALOG 10 MG WAS INJECTED AT EACH SITE. THERE WAS NO EVIDENCE OF BLOOD, PARESTHESIA OR CEREBROSPINAL FLUID DURING THE PROCEDURE. THE PATIENT WAS SENT TO THE RECOVERY ROOM. THE PATIENT WAS MOVING THE EXTREMITIES AND DOING WELL. THERE WAS NO COMPLICATION DURING THE PROCEDURE. FLUOROSCOPY TIME WAS 18 SECONDS POST PROCEDURE NOTE THE PATIENT WILL BE SEEN IN A FOLLOWUP IN THE NEXT FEW WEEKS. I AM LOOKING FOR LONG-LASTING PAIN RELIEF WITH THIS INTERVENTION. INSTRUCTIONS WERE GIVEN, QUESTIONS WERE ANSWERED, AND THE PATIENT EXPRESSED UNDERSTANDING AND AGREES WITH THE PLAN. I, BRIANNA MACHADO, DOCUMENTED THE ABOVE INFORMATION ACTING A SCRIBE FOR DR. NINO. I HAVE REVIEWED THE ABOVE DOCUMENT, WRITTEN BY VITOR MICHEL, AND I VERIFY THAT IT IS ACCURATE PROCEDURE CODES 19102 INJ PARAVERT F JNT L/S 1 LEV, MODIFIERS: 50 [id number] INJ PARAVERT F JNT L/S 2 LEV, MODIFIERS: 50 [id number] RADXPS IN END [id number] PXD DISPOSITION & COMMUNICATION FOLLOW UP 3 WEEKS ELECTRONICALLY SIGNED BY DAVID NINO MD, MD ON 08/14/2019 AT 10:40 AM EST DISCLAIMER : THIS IS A VISIT SUMMARY EXTRACTED FROM THE [email or web address] CHART. IT IS NOT A COPY OF THE [email or web address] PROGRESS NOTE. JOHNNIE
== END ==
LOC: M PAIN 09:00
PROVIDERS: ATTEND Anesthesiology
DX: M47.816 Spondylosis without myelopathy or radiculopathy, lumbar region (principal); M47.817 Spondylosis without myelopathy or radiculopathy, lumbosacral region; K21.9 Gastro-esophageal reflux disease without esophagitis; G43.909 Migraine, unspecified, not intractable, without status migrainosus; E78.5 Hyperlipidemia, unspecified; D50.9 Iron deficiency anemia, unspecified; M79.10 Myalgia, unspecified site; Z88.0 Allergy status to penicillin; Z88.5 Allergy status to narcotic agent; Z88.6 Allergy status to analgesic agent; Z88.8 Allergy status to other drugs, medicaments and biological substances; Z91.09 Other allergy status, other than to drugs and biological substances; Z79.891 Long term (current) use of opiate analgesic; Z79.899 Other long term (current) drug therapy
CPT/HCPCS: 64493; 64494; J3301; Q9967

== ENCOUNTER → 2019-08-19 | Outpatient (CLI) | payer MEDICARE, MEDICAID ==
[~2019-08-19] MED LIST changes: -BUPIVACAINE HCL 0.25% 30 ML VIAL As Ordered ONE; -ISOVUE-M 300 61% 15ML VIAL (Q9967) As Ordered ONE; -LIDOCAINE 1% SDV INJ 30 ML VIAL As Ordered ONE; -TRIAMCINOLONE ACETONIDE SUSP 40 MG/ML VIAL (J3301) As Ordered ONE; -diazePAM 5 MG TAB As Ordered ONE; -oxyCODONE 5MG TAB As Ordered ONE
--- NOTE | 2019-08-20 08:27 | REP ---
PELVIC ULTRASOUND: Real-time sonographic evaluation of the pelvis is performed utilizing transabdominal and endovaginal technique. The bladder measures 5.4 x 4.5 x 6.9 cm. Uterus measures 6.0 x 3.2 x 3.5 cm. Endometrial thickness is 5 mm. Trace endometrial fluid is present. The uterus is retroverted. Ovaries are normal in size and echotexture, right ovary measuring 1.2 x 1.0 x 0.7 cm and left ovary 1.3 x 0.8 x 1.3 cm. There is no adnexal mass or free fluid. There appears to be blood flow in each ovary with Doppler evaluation. IMPRESSION: Endometrial thickness 5 mm. Trace endometrial fluid. No mass or free fluid. Electronically Signed by Lon Cruz MD 08/20/2019 10:44 P
== END ==
LOC: M RAD 09:44
PROVIDERS: ATTEND Obstetrics & Gynecology
DX: N93.9 Abnormal uterine and vaginal bleeding, unspecified (principal)

== ENCOUNTER → 2019-08-19 | Outpatient (CLI) | payer MEDICARE, MEDICAID ==
--- NOTE | 2019-09-04 03:02 | ECWPNPC ---
PATIENT NAME: DEEDEE SHEARER : 1975 GENDER: FEMALE VISIT DATE: 08/19/2019 DISCHARGE DATE: 08/19/19 1441 VISIT LOCKED DATE TIME: PHYSICIAN: STARLA CHEATHAM RESOURCE: STARLA CHEATHAM REASON FOR APPOINTMENT 1. POST PROC HISTORY OF PRESENT ILLNESS HISTORY OF PRESENT ILLNESS: HERE FOR F/U OF CHRONIC NECK AND LBP. CHIEF AREA OF PAIN TODAY IS HER NECK. REPORTING NECK PAIN LEVEL A 10 OVER 10 VAS. PAIN IS DESCRIBED CONTINUOUS, STABBING AND ACHING. PAIN IS AGGRAVATED BY FLEXION AND EXTENSION OF HER NECK. REVIEWED MRI OF THE CERVICAL SPINE AND DISCUSSED TREATMENT OPTIONS. CONTINUES TO FIND LYRICA HELPFUL AT FIBROMYALGIA PAIN. PAIN THE PATIENT DESCRIBES THE PAIN... FALL RISK SCREENING: SCREENING :NO FALLS REPORTED IN THE LAST YEAR CURRENT MEDICATIONS TAKING VERAPAMIL HCL ER 180 MG TABLET EXTENDED RELEASE 1 TABLET ORALLY TWICE A DAY, NOTES: 08-04-192299 TAKING PROMETHAZINE HCL 25 MG TABLET 1 TABLET NEEDED ORALLY EVERY 12 HRS PRN NAUSEA, NOTES: MORE THAN 1 WEEK TAKING PROCTOZONE-HC 2.5 % CREAM 1 APPLICATION TO AFFECTED AREA RECTAL TWICE A DAY, NOTES: NONE RECENTLY TAKING ALAVERT ALLERGY/SINUS 5-120 MG TABLET EXTENDED RELEASE 12 HOUR 1 TABLET NEEDED ORALLY EVERY 12 HRS, NOTES: NONE RECENTLY TAKING ATORVASTATIN CALCIUM 40 MG TABLET 1 TABLET ORALLY DAILY, NOTES: 08-04-192299 TAKING MAGNESIUM CHLORIDE - POWDER 2 [id number] (4 TSPS) ORALLY TWICE DAILY NEEDED, NOTES: NNNE RECENTLY TAKING ALBUTEROL SULFATE HFA 108 (90 BASE) MCG/ACT AEROSOL SOLUTION 2 PUFFS NEEDED INHALATION EVERY 4 HRS PRN SOB/WHEEZING, NOTES: NONE RECENTLY TAKING VITAMIN C ER 1000 MG TABLET EXTENDED RELEASE 1 TABLET ORALLY ONCE A DAY, NOTES: NONE RECENTLY TAKING PANTOPRAZOLE SODIUM 40 MG TABLET DELAYED RELEASE 1 TABLET ORALLY BID, NOTES: 08-04-192299 TAKING E-Z SPACER 1 SPACER ICD10: J44.9 DIRECTED WITH PRN ALBUTEROL INHALER TAKING SENOKOT S THREE TIMES A DAY, NOTES: 08-04-20192299 TAKING VITAMIN D3 2000 UNIT CAPSULE 2 CAPSULES ORALLY ONCE A DAY, NOTES: 08-04-192299 TAKING FERROUS SULFATE 325 MG CAPSULE 1 TABLET ORALLY TWICE A DAY WITH ORANGE JUICE, NOTES: NONE RECENTLY TAKING RIZATRIPTAN BENZOATE 10 MG TABLET 1 TABLET ORALLY ONCE A DAY, NOTES: NONE RECENTLY TAKING AIMOVIG 70 MG/ML SOLUTION AUTO-INJECTOR DIRECTED SUBCUTANEOUS , NOTES: 07-16-2020 TAKING LYRICA 150 MG CAPSULE 1 CAPSULE ORALLY BID MDD2, NOTES: 08-04-192299 TAKING OXYCODONE HCL 10 MG TABLET 1 TABLET ORALLY Q12H BID MDD2, NOTES: 08-04-192299 TAKING TIZANIDINE HCL 4 MG TABLET 1 TABLET NEEDED ORALLY AT BEDTIME, NOTES: 08-04-192299 TAKING MOBIC 15 MG TABLET 1 TABLET ORALLY ONCE A DAY NEEDED, NOTES: 08-04-192299 DISCONTINUED HAIR NOURISHING SUPPLEMENT - TABLET DIRECTED ORALLY DAILY, NOTES: NONE RECENTLY DISCONTINUED GABAPENTIN 300 MG CAPSULE 2 CAP ORALLY THREE TIMES DAILY DISCONTINUED INSULIN SYRINGE-NEEDLE U-100 25G X 1 MISCELLANEOUS USE FOR 1 MG INJECTIONS FOR DIHYDROERGOTERMINE INTRAMUSCULARLY UP TO 3 TIMES IN ONE DAY OR 8 TIMES IN ONE WEEK DISCONTINUED AMOXICILLIN-POT CLAVULANATE 875-125 MG TABLET 1 TABLET ORALLY EVERY 12 HRS DISCONTINUED FLUCONAZOLE 150 MG TABLET 1 TABLET ORALLY UNKNOWN DETROL LA 2 MG CAPSULE EXTENDED RELEASE 24 HOUR 1 CAPSULE ORALLY ONCE A DAY MEDICATION LIST REVIEWED AND RECONCILED WITH THE PATIENT PAST MEDICAL HISTORY GERD DDD, HERNIATED DISCS, SPINE ARTHRITIS COPD PER PATIENT CHRONIC MIGRAINES HX RIGHT ANKLE FX, LEFT FOOT FX, COCCYX FX R KNEE SCAR TISSUE OBESITY PCOS, HIRSUTISM HYPERLIPIDEMIA RESTLESS LEGS SYNDROME IRON DEFICIENCY ANEMIA CHRONIC FATIGUE IRREGULAR HEAVY MENSES ENDOMETRIOSIS INTERSTITIAL CYSTITIS REPORTED HISTORY OF COLONIC POLYPS ELEVATED 24 HR CORTISOL- SAW DR. GOMEZ, NO ADRENAL INSUFFICIENCY OCCIPITAL NEURALGIA CHRONIC PAIN DUE TO TRAUMA MYALGIA CONSTIPATION TUMOR UTERUS ALLERGIES TYLENOL: FEVER - ALLERGY ZANTAC: NUMBNESS ANDTINGLING IN HANDS AND SWOLLEN LIPS - ALLERGY HYDROCODONE-ACETAMINOPHEN: FEVER ,NAUSEA - ALLERGY PENICILLIN (FOR ALLERGIES USE ONLY): YEAST INFECTION VENOFER: JOINT SWELLING - ALLERGY BANDAIDS/ADHESIVES: RASH - ALLERGY SURGICAL HISTORY TONSILLECTOMY 1990 APPENDECTOMY 1977 R KNEE FX 2002 R ANKLE FX 2016 DIAGNOSTIC LAPAROSCOPY WITH REMOVAL OF SCAR TISSUE 2011 COLONOSCOPY/ ENDOSCOPY 09/26/2018 RIGHT ANKLE HARDWARE REMOVED 10/2018 RIGHT ANKLE FX AND REPAIR 2015 TOOTH EXTRACTION 1999 GALLBLADDER REMOVAL 04/2019 UTERINE TUMOR REMOVAL 04/2019 FAMILY HISTORY FATHER: , PANCREATITIS MOTHER: , EMPHYSEMA, ASTHMA SIBLINGS: ALIVE, SISTER JAYLA, STAGE 3A LUNG CANCER, SISTER CRISTAL HAS LEUKEMIA, SISTER YEIMI IS FROM UTERINE WITH METS TO LUNGS, LIVER, KIDNEYS; SISTER SUNDAY HAD CERVICAL CA; BROTHER ALYSSA HAS PROSTATE CA 3 BROTHER(S) , 7 SISTER(S) - HEALTHY. SOCIAL HISTORY GENERAL: TOBACCO USE ARE YOU A:NONSMOKER NEVER SMOKER HIV / HEP-C SCREENING HIV TEST OFFERED TO PATIENT:YES DATE OFFERED:08/01/2017 TEST ACCEPTED:NO HEP-C TEST OFFERED TO PATIENT:NO REASON:PATIENT DECLINED BROCHURE PROVIDED TO PATIENTYES OTHERS AT HOME: SIBLING, IN-LAW(S). EDUCATION LEVEL OF EDUCATION:COLLEGE DIET: NO MSG ,GLUTEN FREE. LANGUAGE LANGUAGES SPOKEN:SLOVENIAN DOMESTIC VIOLENCE DO YOU FEEL SAFE IN YOUR ENVIRONMENT?YES RECREATIONAL DRUG USE DRUG USE?NO EXERCISE: NONE. LEARNING BARRIERS / SPECIAL NEEDS BARRIERS TO LEARNING?NO HEARING IMPAIRED?NO VISION IMPAIRED?NO COGNITIVELY IMPAIRED?NO READINESS TO LEARN?YES LEARNING PREFERENCES?YES :DEMONSTRATION/VERBAL INSTRUCTION LEARNING CAPABILITIES PRESENT?YES EMOTIONAL BARRIERS?NO SPECIAL DEVICES?NO RAIL BONDER NEEDED?NO PAIN CLINIC PFS, CLERGY, PUBLIC HEALTH REFERRALS WAS THE PROVIDER NOTIFIED OF ANY PERTINENT INFO?YES HAS THE PATIENT BEEN EDUCATED REGARDING HIS/HER PLAN OF CARE?YES HAS THE PATIENT BEEN EDUCATED REGARDING PAIN, THE RISK FOR PAIN, THE IMPORTANCE OF EFFECTIVE PAIN MANAGEMENT, AND THE PAIN ASSESSMENT PROCESS?YES LATEX QUESTIONNAIRE LATEX ALLERGY : HAVE YOU EVER DEVELOPED ANY TYPE OF REACTION AFTER HANDLING LATEX PRODUCTS SUCH RUBBER GLOVES, CONDOMS, DIAPHRAGMS, BALLOONS, SOCKS, OR UNDERWEAR?YES - PLEASE INDICATE :OTHER (DOCUMENT IN NOTES) SOME BANDAIDS LATEX ALLERGY : HAVE YOU EVER DEVELOPED ANY TYPE OF REACTION DURING OR AFTER DENTAL APPOINTMENT, VAGINAL/RECTAL EXAMINATION, SURGICAL PROCEDURE, OR ANY OTHER EXPOSURE?NO LATEX RISK : HAVE YOU EVER HAD ANY DIFFICULTY BREATHING OR HIVES AFTER EATING OR HANDLING ANY FRUITS, OR VEGETABLES; SUCH KIWI, BANANAS, STONE FRUITS, OR CHESTNUTSNO LATEX RISK : DO YOU HAVE A PREVIOUS PERSONAL HISTORY OF MORE THAN NINE SURGERIES, SPINA BIFIDA, OR REPEATED CATHERIZATIONS? NO LATEX RISK : ARE YOU FREQUENTLY EXPOSED TO LATEX PRODUCTS IN YOUR OCCUPATION?NO DATE ASKED : 08/19/2019 CAFFEINE CAFFEINE USE?NO ADVANCE DIRECTIVE ADVANCE DIRECTIVE DISCUSSED WITH PATIENT:YES HAS HCP- MALGORZATA VELASCO [phone] JEW [id number] NONE OTHER MARITAL STATUS: SINGLE. ALCOHOL SCREENING DID YOU HAVE A DRINK CONTAINING ALCOHOL IN THE PAST YEAR?NO POINTS0 INTERPRETATIONNEGATIVE OCCUPATION: UNEMPLOYED. SEXUAL HX HAD SEX IN THE LAST 12 MONTHS (VAGINAL, ORAL, OR ANAL)?NO HAVE YOU EVER HAD AN STD?NO REVIEWED WITH PATIENT 07/31/18 0947 JS08/29/18 REVIEWED WITH PT. AD09/05/18 1315 REVIEWED WITH PT LAS09/09/18 REVIEWED WITH PT LASREVIEWED WITH PATIENT 12/02/18 1033 JSPRE ADMIT DONE FOR 08-05-2019 KE08/19/19 REVIEWED WITH PT.REVIEWED WITH PATIENT 02/12/19 1445 JS01/30/19 REVIEWED WITH PT. ADREVIEWED WITH PT 02/17/19 0927 BVREVIEWED WITH PT 04/09/19 1330REVIEWED WITH PATIENT 05/16/19 1348 JSREVIEWED WITH PATIENT 06/10/19 1339 JS. HOSPITALIZATION/MAJOR DIAGNOSTIC PROCEDURE ABOVE SURGERIES REVIEW OF SYSTEMS REVIEWED BY: PROVIDER: STARLA HURTADO . CONSTITUTIONAL: ANY CHANGE IN YOUR MEDICAL CONDITION? NO . CHILLS NO . FEVER NO . INFECTION: DO YOU HAVE NEW INFECTIONS? NO . DO YOU HAVE HISTORY OF MRSA? NO . MUSCULOSKELETAL: ANY NEW PATTERNS OF PAIN OR NUMBNESS? NO . GASTROENTEROLOGY: ANY NEW CHANGE IN BOWEL CONTROL? NO . GENITOURINARY: ANY NEW CHANGE IN BLADDER CONTROL? NO . IS THERE A CHANCE YOU COULD BE ? NO . HEMATOLOGY/LYMPH: DO YOU TAKE ANY BLOOD THINNERS? (FOR EXAMPLE- COUMADIN, PLAVIX, AGGRENOX, PLATEL, PRADAXA, OR XARELTO) NO . WHEN WAS YOUR LAST DOSE? DATE: TIME: . NEUROLOGY: HAVE YOU FALLEN IN THE PAST 12 MONTHS? NO . ANY NEW EXTREMITY NUMBNESS OR WEAKNESS? NO . CARDIOLOGY: DO YOU HAVE A PACEMAKER OR DEFIBRILLATOR? NO . RESPIRATORY: HAVE YOU BEEN SICK IN THE PAST WEEK? NO . FEVER NO . FLU LIKE SYMPTOMS? NO . COUGH NO . INTEGUMENTARY: DO YOU HAVE ANY RASHES OR OPEN SORES? NO . ALLERGIC/IMMUNO: ARE YOU ALLERGIC TO IV DYE? NO . ANY NEW ALLERGIES? NO . PSYCHIATRIC: DO YOU HAVE THOUGHTS OF HURTING YOURSELF OR SOMEONE ELSE? NO . ARE YOU ABUSED, NEGLECTED, OR IN AN UNSAFE ENVIRONMENT? NO . ENDOCRINOLOGY: ARE YOU DIABETIC? NO . OTHER: DO YOU NEED ANY PRESCRIPTIONS? NO . IF YES, PLEASE LIST: ____ . ANY NEW PROBLEMS WITH YOUR MEDICATIONS? NO . WHEN DID YOU LAST EAT? ____ . WHEN DID YOU LAST DRINK? ____ . WHAT DID YOU LAST DRINK? ____ . NAME OF PERSON DRIVING YOU HOME? ____ . DO YOU HAVE ANY OTHER QUESTIONS OR CONCERNS NO . VITAL SIGNS WT 199.8 LBS, HT 60 IN, BMI 39.02 INDEX, BP 132/69 MM HG, HR 90 /MIN, RR 18 /MIN, TEMP 98.4 F, OXYGEN SAT % 97, SAFE IN ENV? (Y/N) YES, REVIEWED BY: ILIANA. EXAMINATION GENERAL EXAMINATION: LUNGS: LUNG SOUNDS ARE CLEAR . HEART: HEART RATE REGULAR . MUSCULOSKELETAL:*, MUSCLE STRENGTH TESTING 5/5 BILATERAL UPPER EXTREMITIES. . CERVICAL:+ FOR PAIN WITH PALPATION OF CERVICAL SPINE. + FOR PAIN WITH PALPATION OF CERVICAL PARASPINALS.SPECIFIC POINT TENDERNESS NOTED OV C4/5-/C5/6 CERVICAL FACETS WITH EXTENSION AND FACET LOADING.. DIAGNOSTIC TESTS REVIEWED CERVICAL MRI -09/14/18. ASSESSMENTS CERVICAL SPONDYLOSIS - M47.812 (PRIMARY) TREATMENT CERVICAL SPONDYLOSIS NOTES: BILAT C3/4-C4/5 CFBTREDUCE OXYCODONE TO TWICE A DAY DISCUSSED. CONTINUE LYRICA 150 MG TWICE A DAY. CONTINUE USE OF TIZANIDINE 4 MG AT AT BEDTIME WHEN NECESSARY., ISTOP REGISTRY REVIEWED AND DEMONSTRATES COMPLLIANCE. BRINGS IN MEDICATIONS WHICH IS APPROPRIATE FOR WHAT WAS DISPENSED. RECENT URINE TOXICOLOGY REVIEWED. NO UNAUTHORIZED MEDICATIONS. NO ILLICIT SUBSTANCES AND PRESCRIBED MEDICATIONS WERE PRESENT. URINE TOX TODAY, RISKS OF NARCOTIC/OPIOD MEDICATIONS INCLUDES BUT IS NOT LIMITED TO RISK OF DEPENDANCE/DEVELOPMENT OF ADDICTION, MOOD DISTURBANCE AND DEPRESSION, OSTEOPOROSIS, HORMONAL AND LABIDAL CHANGES, RESPIRATORY DEPRESSION AND . PATIENT IS ADVISED NOT TO DRIVE OR DRINK ALCOHOL WHILE ON THESE MEDICATIONS. PREVENTIVE MEDICINE PAIN CLINIC TEACHING: PROCEDURE TEACHING PROCEDURE FACET BLOCK TEACHING REVIEWED WITH PT. ILIANA. PROCEDURE CODES FA211 ESTABILISHED PATIENT [facility] FACILITY CHARGE DISPOSITION & COMMUNICATION FOLLOW UP POST (REASON: BILAT C3/4-C4/5 CFBT) ELECTRONICALLY SIGNED BY BRYANT MIXON ON 09/03/2019 AT 04:36 PM EST DISCLAIMER : THIS IS A VISIT SUMMARY EXTRACTED FROM THE [employer] CHART. IT IS NOT A COPY OF THE [employer] PROGRESS NOTE. JOHNNIE
== END ==
LOC: M PAIN 13:00
PROVIDERS: ATTEND Nurse Practitioner Family
DX: M47.812 Spondylosis without myelopathy or radiculopathy, cervical region (principal); G89.29 Other chronic pain; K21.9 Gastro-esophageal reflux disease without esophagitis; G43.909 Migraine, unspecified, not intractable, without status migrainosus; E78.5 Hyperlipidemia, unspecified; G25.81 Restless legs syndrome; D50.9 Iron deficiency anemia, unspecified; M79.10 Myalgia, unspecified site; Z88.0 Allergy status to penicillin; Z88.5 Allergy status to narcotic agent; Z88.6 Allergy status to analgesic agent; Z88.8 Allergy status to other drugs, medicaments and biological substances; Z91.09 Other allergy status, other than to drugs and biological substances; Z79.891 Long term (current) use of opiate analgesic; Z79.899 Other long term (current) drug therapy
CPT/HCPCS: 76830; 76856; G0463

== ENCOUNTER → 2019-09-24 | Outpatient (REF) | payer MEDICARE, MEDICAID ==
[2019-09-26 15:01] LABS: ALBUMIN 3.8 GM/DL (3.2-5.2); BILIRUBIN,DIRECT 0.1 MG/DL (0.0-0.2); BILIRUBIN,TOTAL 0.4 MG/DL (0.2-1.0); TOTAL PROTEIN 6.8 GM/DL (6.4-8.2)
== END ==
LOC: M LAB REF 14:44
PROVIDERS: ATTEND Physician Assistant Medical
DX: R10.10 Upper abdominal pain, unspecified (principal)

== ENCOUNTER → 2019-09-24 | Outpatient (REF) | payer MEDICARE, MEDICAID ==
[2019-09-24 12:17] LABS: HEMATOCRIT 40.6 % (36.0-47.0); HEMOGLOBIN 12.8 g/dl (12.0-15.5); MEAN CORPUSCULAR HEMOGLOBIN 29.8 pg (27.0-33.0); MEAN CORPUSCULAR HGB CONC 31.5 g/dl (32.0-36.5); MEAN CORPUSCULAR VOLUME 94.4 fl (80.0-96.0); PLATELET COUNT, AUTOMATED 227 10^3/uL (150-450); WHITE BLOOD COUNT 7.1 10^3/uL (4.0-10.0)
[2019-09-24 12:45] LABS: BLOOD UREA NITROGEN 19 MG/DL (7-18); CALCIUM LEVEL 8.7 MG/DL (8.5-10.1); CARBON DIOXIDE LEVEL 28 MEQ/L (21-32); CHLORIDE LEVEL 108 MEQ/L (98-107); CREATININE FOR GFR 0.88 MG/DL (0.55-1.30); FERRITIN 21 NG/ML (8-252); GLOMERULAR FILTRATION RATE > 60.0 (>58); GLUCOSE, FASTING 79 MG/DL (70-100); IRON (FE) 49 UG/DL (50-170); PERCENT SATURATION 12.2 % (13.2-45.0); POTASSIUM SERUM 3.9 MEQ/L (3.5-5.1); SODIUM LEVEL 143 MEQ/L (136-145); TOTAL IRON BINDING CAPACITY 403 UG/DL (250-450)
[2019-09-24 13:05] LABS: INR 0.97; PARTIAL THROMBOPLASTIN TIME 27.5 SECONDS (25.0-38.4); PROTHROMBIN TIME 12.6 SECONDS (11.8-14.0)
== END ==
LOC: M SFHCPLAZ 10:37
PROVIDERS: ATTEND Family Medicine
DX: Z01.818 Encounter for other preprocedural examination (principal); R23.8 Other skin changes; Z86.2 Personal history of diseases of the blood and blood-forming organs and certain disorders involving the immune mechanism
CPT/HCPCS: 36415; 80048; 82728; 83550; 85027; 85610; 85730; 93005; G0463

== ENCOUNTER → 2019-09-29 | Outpatient (CLI) | payer MEDICARE, MEDICAID ==
[~2019-09-29] MED LIST changes: +BUPIVACAINE HCL 0.25% 30 ML VIAL As Ordered ONE; +ISOVUE-M 300 61% 15ML VIAL (Q9967) As Ordered ONE; +LIDOCAINE 1% SDV INJ 30 ML VIAL As Ordered ONE; +TRIAMCINOLONE ACETONIDE SUSP 40 MG/ML VIAL (J3301) As Ordered ONE; +diazePAM 5 MG TAB As Ordered ONE; +oxyCODONE 5MG TAB As Ordered ONE
--- NOTE | 2019-09-29 12:11 | REP ---
Partial cervical spine series: Single view. Findings: Bilateral cervical facet block for pain. 17 seconds of fluoroscopy time is reported. Findings: A single last image hold fluoroscopically obtained spot radiograph of the cervical spine documents needle position and contrast injection associated with cervical injection procedure. Electronically Signed by Yasmany Subramanian MD 09/29/2019 12:02 P
--- NOTE | 2019-10-02 05:38 | ECWPNPC ---
PATIENT NAME: DEEDEE SHEARER : 1975 GENDER: FEMALE VISIT DATE: 09/29/2019 DISCHARGE DATE: 09/29/19 1202 VISIT LOCKED DATE TIME: PHYSICIAN: DAVID NINO MD RESOURCE: DAVID NINO MD REASON FOR APPOINTMENT 1. FACET BLOCK C3/C4, C4/C5 HISTORY OF PRESENT ILLNESS HISTORY OF PRESENT ILLNESS: PAIN THE PATIENT DESCRIBES THE PAIN... FALL RISK SCREENING: SCREENING :NO FALLS REPORTED IN THE LAST YEAR CURRENT MEDICATIONS TAKING PROMETHAZINE HCL 25 MG TABLET 1 TABLET NEEDED ORALLY EVERY 12 HRS PRN NAUSEA, NOTES: 09/27 1029 TAKING ALAVERT ALLERGY/SINUS 5-120 MG TABLET EXTENDED RELEASE 12 HOUR 1 TABLET NEEDED ORALLY EVERY 12 HRS, NOTES: 09/27 1499 TAKING ATORVASTATIN CALCIUM 40 MG TABLET 1 TABLET ORALLY DAILY, NOTES: 09/28 1999 TAKING MAGNESIUM CHLORIDE - POWDER 2 [id number] (4 TSPS) ORALLY TWICE DAILY NEEDED, NOTES: NONE RECENT TAKING ALBUTEROL SULFATE HFA 108 (90 BASE) MCG/ACT AEROSOL SOLUTION 2 PUFFS NEEDED INHALATION EVERY 4 HRS PRN SOB/WHEEZING, NOTES: NONE RECENT TAKING VITAMIN C ER 1000 MG TABLET EXTENDED RELEASE 1 TABLET ORALLY ONCE A DAY, NOTES: 09/26 TAKING VERAPAMIL HCL ER 180 MG TABLET EXTENDED RELEASE 1 TABLET ORALLY TWICE A DAY, NOTES: 09/28 729 TAKING PANTOPRAZOLE SODIUM 40 MG TABLET DELAYED RELEASE 1 TABLET ORALLY BID, NOTES: 09/28 729 TAKING E-Z SPACER 1 SPACER ICD10: J44.9 DIRECTED WITH PRN ALBUTEROL INHALER TAKING SENOKOT S THREE TIMES A DAY, NOTES: 09/28 799 TAKING VITAMIN D3 2000 UNIT CAPSULE 2 CAPSULES ORALLY ONCE A DAY, NOTES: 09/28 799 TAKING FERROUS SULFATE 325 MG CAPSULE 1 TABLET ORALLY TWICE A DAY WITH ORANGE JUICE, NOTES: 09/26 TAKING LYRICA 150 MG CAPSULE 1 CAPSULE ORALLY BID MDD2, NOTES: 09/28 729 TAKING AJOVY 225 MG/1.5ML SOLUTION PREFILLED SYRINGE 1.5 ML SUBCUTANEOUS MONTHLY, NOTES: 09/17 TAKING OXYCODONE HCL 10 MG TABLET 1 TABLET ORALLY Q12H BID MDD2, NOTES: 09/28 1999 TAKING OXYBUTYNIN CHLORIDE ER 5 MG TABLET EXTENDED RELEASE 24 HOUR 1 TABLET ORALLY ONCE A DAY, NOTES: 09/26 TAKING PROCTOZONE-HC 2.5 % CREAM 1 APPLICATION TO AFFECTED AREA RECTAL TWICE A DAY NEEDED, NOTES: NONE RECENT TAKING MOBIC 15 MG TABLET 1 TABLET ORALLY ONCE A DAY NEEDED, NOTES: 09/26 TAKING ALEVE 220 MG TABLET 1 TABLET WITH FOOD OR MILK NEEDED ORALLY EVERY 12 HRS, NOTES: 09/22 TAKING TIZANIDINE HCL 4 MG TABLET TAKE 1 TABLET BY MOUTH TWICE DAILY NEEDED. DO NOT TAKE IF TAKING BACLOFEN ON SAME DAY. , NOTES: NONE RECENT TAKING SUMATRIPTAN SUCCINATE 100 MG TABLET 1 TABLET AT LEAST 2 HOURS BETWEEN DOSES NEEDED ORALLY TWICE A DAY, NOTES: 09/28 29 NOT-TAKING RIZATRIPTAN BENZOATE 10 MG TABLET 1 TABLET ORALLY ONCE A DAY NOT-TAKING AIMOVIG 70 MG/ML SOLUTION AUTO-INJECTOR DIRECTED SUBCUTANEOUS MEDICATION LIST REVIEWED AND RECONCILED WITH THE PATIENT PAST MEDICAL HISTORY GERD DDD, HERNIATED DISCS, SPINE ARTHRITIS COPD PER PATIENT CHRONIC MIGRAINES HX RIGHT ANKLE FX, LEFT FOOT FX, COCCYX FX R KNEE SCAR TISSUE OBESITY PCOS, HIRSUTISM HYPERLIPIDEMIA RESTLESS LEGS SYNDROME IRON DEFICIENCY ANEMIA CHRONIC FATIGUE IRREGULAR HEAVY MENSES ENDOMETRIOSIS INTERSTITIAL CYSTITIS REPORTED HISTORY OF COLONIC POLYPS ELEVATED 24 HR CORTISOL- SAW DR. GMOEZ, NO ADRENAL INSUFFICIENCY OCCIPITAL NEURALGIA CHRONIC PAIN DUE TO TRAUMA MYALGIA CONSTIPATION TUMOR UTERUS CHRONIC BACK AND NECK PAIN ALLERGIES TYLENOL: FEVER - ALLERGY ZANTAC: NUMBNESS ANDTINGLING IN HANDS AND SWOLLEN LIPS - ALLERGY HYDROCODONE-ACETAMINOPHEN: FEVER ,NAUSEA - ALLERGY PENICILLIN (FOR ALLERGIES USE ONLY): YEAST INFECTION - SIDE EFFECTS VENOFER: JOINT SWELLING - ALLERGY BANDAIDS/ADHESIVES: RASH - ALLERGY SURGICAL HISTORY TONSILLECTOMY 1990 APPENDECTOMY 1977 R KNEE FX 2002 R ANKLE FX 2016 DIAGNOSTIC LAPAROSCOPY WITH REMOVAL OF SCAR TISSUE 2011 COLONOSCOPY/ ENDOSCOPY 09/26/2018 RIGHT ANKLE HARDWARE REMOVED 10/2018 TOOTH EXTRACTION 1998 GALLBLADDER REMOVAL 04/2019 UTERINE TUMOR REMOVAL 04/2019 FAMILY HISTORY FATHER: , PANCREATITIS MOTHER: , EMPHYSEMA, ASTHMA SIBLINGS: ALIVE, SISTER JAYLA, STAGE 3A LUNG CANCER, SISTER OCTOBER HAS LEUKEMIA, SISTER YEIMI IS FROM UTERINE WITH METS TO LUNGS, LIVER, KIDNEYS; SISTER SUNDAY HAD CERVICAL CA; BROTHER ALYSSA HAS PROSTATE CA 3 BROTHER(S) , 7 SISTER(S) - HEALTHY. SOCIAL HISTORY GENERAL: TOBACCO USE ARE YOU A:NONSMOKER NEVER SMOKER HIV / HEP-C SCREENING HIV TEST OFFERED TO PATIENT:YES DATE OFFERED:08/01/2017 TEST ACCEPTED:NO HEP-C TEST OFFERED TO PATIENT:NO REASON:PATIENT DECLINED BROCHURE PROVIDED TO PATIENTYES OTHERS AT HOME: SIBLING, IN-LAW(S). EDUCATION LEVEL OF EDUCATION:COLLEGE DIET: NO MSG ,GLUTEN FREE. LANGUAGE LANGUAGES SPOKEN:ANGOLAN DOMESTIC VIOLENCE DO YOU FEEL SAFE IN YOUR ENVIRONMENT?YES RECREATIONAL DRUG USE DRUG USE?NO EXERCISE: NONE. LEARNING BARRIERS / SPECIAL NEEDS BARRIERS TO LEARNING?NO HEARING IMPAIRED?NO VISION IMPAIRED?NO COGNITIVELY IMPAIRED?NO READINESS TO LEARN?YES LEARNING PREFERENCES?YES :DEMONSTRATION/VERBAL INSTRUCTION LEARNING CAPABILITIES PRESENT?YES EMOTIONAL BARRIERS?NO SPECIAL DEVICES?NO AIRCRAFT POWERTRAIN REPAIRER NEEDED?NO PAIN CLINIC PFS, CLERGY, PUBLIC HEALTH REFERRALS HAS THE PATIENT BEEN EDUCATED REGARDING HIS/HER PLAN OF CARE?YES HAS THE PATIENT BEEN EDUCATED REGARDING PAIN, THE RISK FOR PAIN, THE IMPORTANCE OF EFFECTIVE PAIN MANAGEMENT, AND THE PAIN ASSESSMENT PROCESS?YES LATEX QUESTIONNAIRE LATEX ALLERGY : HAVE YOU EVER DEVELOPED ANY TYPE OF REACTION AFTER HANDLING LATEX PRODUCTS SUCH RUBBER GLOVES, CONDOMS, DIAPHRAGMS, BALLOONS, SOCKS, OR UNDERWEAR?YES - PLEASE INDICATE :OTHER (DOCUMENT IN NOTES) SOME BANDAIDS LATEX ALLERGY : HAVE YOU EVER DEVELOPED ANY TYPE OF REACTION DURING OR AFTER DENTAL APPOINTMENT, VAGINAL/RECTAL EXAMINATION, SURGICAL PROCEDURE, OR ANY OTHER EXPOSURE?NO LATEX RISK : HAVE YOU EVER HAD ANY DIFFICULTY BREATHING OR HIVES AFTER EATING OR HANDLING ANY FRUITS, OR VEGETABLES; SUCH KIWI, BANANAS, STONE FRUITS, OR CHESTNUTSNO LATEX RISK : DO YOU HAVE A PREVIOUS PERSONAL HISTORY OF MORE THAN NINE SURGERIES, SPINA BIFIDA, OR REPEATED CATHERIZATIONS? NO LATEX RISK : ARE YOU FREQUENTLY EXPOSED TO LATEX PRODUCTS IN YOUR OCCUPATION?NO DATE ASKED : 09/29/2019 CAFFEINE CAFFEINE USE?NO ADVANCE DIRECTIVE ADVANCE DIRECTIVE DISCUSSED WITH PATIENT:YES HAS HCP- MALGORZATA VELASCO [phone] CHEONDOISM [id number] NONE OTHER MARITAL STATUS: SINGLE. ALCOHOL SCREENING DID YOU HAVE A DRINK CONTAINING ALCOHOL IN THE PAST YEAR?NO POINTS0 INTERPRETATIONNEGATIVE OCCUPATION: UNEMPLOYED. SEXUAL HX HAD SEX IN THE LAST 12 MONTHS (VAGINAL, ORAL, OR ANAL)?NO HAVE YOU EVER HAD AN STD?NO REVIEWED WITH PATIENT 07/31/18 0997 JS08/29/18 REVIEWED WITH PT. AD09/05/18 1315 REVIEWED WITH PT LAS09/09/18 REVIEWED WITH PT LASREVIEWED WITH PATIENT 12/02/18 1033 JS09/17/2019 PRE-PROCEDURE CALL COMPLETED. ADPRE ADMIT DONE FOR 08-05-2019 KE08/19/19 REVIEWED WITH PT.REVIEWED WITH PATIENT 02/12/19 1445 01/30/19 REVIEWED WITH PT. ADREVIEWED WITH PT 02/17/19 0927 BVREVIEWED WITH PT 04/09/19 1330REVIEWED WITH PATIENT 05/16/19 1348 JSREVIEWED WITH PATIENT 06/10/19 1339 JS09/29/2019 REVIEWED WITH PT. AD. HOSPITALIZATION/MAJOR DIAGNOSTIC PROCEDURE ABOVE SURGERIES REVIEW OF SYSTEMS REVIEWED BY: PROVIDER: . CONSTITUTIONAL: ANY CHANGE IN YOUR MEDICAL CONDITION? NO . CHILLS NO . FEVER NO . INFECTION: DO YOU HAVE NEW INFECTIONS? NO . DO YOU HAVE HISTORY OF MRSA? NO . MUSCULOSKELETAL: ANY NEW PATTERNS OF PAIN OR NUMBNESS? NO . GASTROENTEROLOGY: ANY NEW CHANGE IN BOWEL CONTROL? NO . GENITOURINARY: ANY NEW CHANGE IN BLADDER CONTROL? NO . IS THERE A CHANCE YOU COULD BE ? NO . HEMATOLOGY/LYMPH: DO YOU TAKE ANY BLOOD THINNERS? (FOR EXAMPLE- COUMADIN, PLAVIX, AGGRENOX, PLATEL, PRADAXA, OR XARELTO) NO . WHEN WAS YOUR LAST DOSE? DATE: TIME: . NEUROLOGY: HAVE YOU FALLEN IN THE PAST 12 MONTHS? NO . ANY NEW EXTREMITY NUMBNESS OR WEAKNESS? NO . CARDIOLOGY: DO YOU HAVE A PACEMAKER OR DEFIBRILLATOR? NO . RESPIRATORY: HAVE YOU BEEN SICK IN THE PAST WEEK? NO . FEVER NO . FLU LIKE SYMPTOMS? NO . COUGH NO . INTEGUMENTARY: DO YOU HAVE ANY RASHES OR OPEN SORES? NO . ALLERGIC/IMMUNO: ARE YOU ALLERGIC TO IV DYE? NO . ANY NEW ALLERGIES? NO . PSYCHIATRIC: DO YOU HAVE THOUGHTS OF HURTING YOURSELF OR SOMEONE ELSE? NO . ARE YOU ABUSED, NEGLECTED, OR IN AN UNSAFE ENVIRONMENT? NO . ENDOCRINOLOGY: ARE YOU DIABETIC? NO . OTHER: DO YOU NEED ANY PRESCRIPTIONS? NO . IF YES, PLEASE LIST: ____ . ANY NEW PROBLEMS WITH YOUR MEDICATIONS? NO . WHEN DID YOU LAST EAT? 09/27 2330 . WHEN DID YOU LAST DRINK? 09/28 0700 . WHAT DID YOU LAST DRINK? WATER . 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 DO YOU HAVE ANY OTHER QUESTIONS OR CONCERNS NO PT IS SCHEDULED FOR SURGERY TOMORROW FOR REMOVAL OF BRENDA FROM RIGHT ANKLE. SHE STATES THAT THE DRJerardo IS AWARE THAT SHE IS HAVING THIS PROCEDURE TODAY AND IS OKAY WITH IT. DR. NINO AWARE. PT. HAS NOT HAD ANY VACCINES IN THE PAST 30 DAYS . VITAL SIGNS WT 209.6 LBS, HT 60 IN, BMI 40.93 INDEX, BP 128/65 MM HG, HR 79 /MIN, RR 18 /MIN, TEMP 97.1 F, OXYGEN SAT % 94%, SAFE IN ENV? (Y/N) Y, NA INITIALS AW 0944, REVIEWED BY: AD. ASSESSMENTS SPONDYLOSIS OF CERVICAL REGION WITHOUT MYELOPATHY OR RADICULOPATHY - M47.812 (PRIMARY) TREATMENT SPONDYLOSIS OF CERVICAL REGION WITHOUT MYELOPATHY OR RADICULOPATHY SMC FACET BLOCK (PAIN) PROCEDURES PN CERVICAL FACET BLOCK LOW BILATERAL CERVICAL PRE PROCEDURE DIAGNOSIS CERVICAL SPONDYLOSIS POST PROCEDURE DIAGNOSIS CERVICAL SPONDYLOSIS PROCEDURE BILATERAL C3-C4 AND C4-C5 CERVICAL THERAPEUTIC FACET BLOCK SURGEON DR. DAVID NINO LATRINE CLEANER NONE ANESTHESIA LOCAL PRE PROCEDURE NOTE THE PATIENT HAS HISTORY OF CHRONIC CERVICAL PAIN. I EVALUATED THE PATIENT AND REVIEWED THE CHART. I WENT OVER THE RISKS, ALTERNATIVES, AND BENEFITS ASSOCIATED WITH THIS PROCEDURE. THE PATIENT WOULD LIKE TO PROCEED AND GIVES CONSENT TO PERFORM THE PROCEDURE. THE PATIENT DENIES UNEXPLAINABLE WEIGHT LOSS, FEVER, CHILLS, OR NEW CHANGES IN URINARY OR BOWEL CONTROL. DESCRIPTION OF PROCEDURE THE PATIENT WAS BROUGHT TO THE PROCEDURE ROOM AND PLACED IN THE PRONE POSITION. THE CERVICOTHORACIC AREA WAS CLEANED WITH CHLORAPREP SOLUTION AND DRAPED ASEPTICALLY. THE PROCEDURE WAS DONE UNDER STERILE CONDITIONS. I CHECKED LATERALITY AND THE LEVEL WHERE THE PROCEDURE WAS GOING TO BE PERFORMED WITH THE PATIENT AND THE SUPPORTING STAFF AT THE MOMENT OF THE TIME OUT IN THE PROCEDURE ROOM. UNDER FLUOROSCOPIC GUIDANCE, TARGET POINT WAS SELECTED AT THE RIGHT AND LEFT C3-C4 AND RIGHT AND LEFT C4-C5 CERVICAL FACET JOINTS. TARGET POINTS WERE SELECTED AFTER LATERAL ROTATION AND TILT OF THE MAGNIFIER OF THE C-ARM. LIDOCAINE 0.5% WAS USED TO NUMB THE SKIN AND THE SUBCUTANEOUS TISSUE BELOW IT. SPINAL NEEDLES, 22-GAUGE, WERE ADVANCED UNDER FLUOROSCOPIC GUIDANCE AND FOLLOWING PATIENT FEEDBACK UNTIL THE TARGETS WERE TOUCHED. THE POSITION OF THE NEEDLES WAS VERIFIED WITH AP AND LATERAL VIEWS. AFTER PROPER POSITION OF THE NEEDLES WAS ACHIEVED, ISOVUE M DYE 30, 0.1 ML WAS INJECTED SHOWING SPREAD OF THE DYE. THEN A SOLUTION OF 0.9 ML OF BUPIVACAINE 0.125% AND KENALOG 10 MG WAS INJECTED AT EACH SITE. THERE WAS NO EVIDENCE OF BLOOD, PARESTHESIA OR CEREBROSPINAL FLUID DURING THE PROCEDURE. THE PATIENT WAS SENT TO THE RECOVERY ROOM. THE PATIENT WAS MOVING THE EXTREMITIES AND DOING WELL. THERE WAS NO COMPLICATION DURING THE PROCEDURE. FLUOROSCOPY TIME WAS 17 SECONDS POST PROCEDURE NOTE THE PATIENT WILL BE SEEN IN A FOLLOW UP IN THE NEXT FEW WEEKS. I AM LOOKING FOR LONG LASTING PAIN RELIEF FOR THE PATIENT WITH THIS PROCEDURE. INSTRUCTIONS WERE GIVEN, QUESTIONS WERE ANSWERED, AND THE PATIENT EXPRESSED UNDERSTANDING AND AGREES WITH THE PLAN. I, DOUGLAS PEPPER, DOCUMENTED THE ABOVE INFORMATION ACTING A SCRIBE FOR DR. NINO. I HAVE REVIEWED THE ABOVE DOCUMENT, WRITTEN BY DOUGLAS PEPPER SCRIBE AND I VERIFY THAT IT IS ACCURATE. PROCEDURE CODES 23813 INJ PARAVERT F JNT C/T 1 LEV, MODIFIERS: 50 20642 INJ PARAVERT F JNT C/T 2 LEV, MODIFIERS: 50 [id number] RADXPS IN END [id number] PXD DISPOSITION & COMMUNICATION FOLLOW UP 3 WEEKS ELECTRONICALLY SIGNED BY DAVID NINO MD, MD ON 10/01/2019 AT 02:36 PM EDT DISCLAIMER : THIS IS A VISIT SUMMARY EXTRACTED FROM THE [employer] CHART. IT IS NOT A COPY OF THE [employer] PROGRESS NOTE. MTDD
== END ==
LOC: M PAIN 09:30
PROVIDERS: ATTEND Anesthesiology
DX: M47.812 Spondylosis without myelopathy or radiculopathy, cervical region (principal)
CPT/HCPCS: 64490; 64491; J3301; Q9967

== ENCOUNTER → 2019-10-14 | Outpatient (CLI) | payer MEDICARE, MEDICAID ==
[~2019-10-14] MED LIST changes: -BUPIVACAINE HCL 0.25% 30 ML VIAL As Ordered ONE; -ISOVUE-M 300 61% 15ML VIAL (Q9967) As Ordered ONE; -LIDOCAINE 1% SDV INJ 30 ML VIAL As Ordered ONE; -TRIAMCINOLONE ACETONIDE SUSP 40 MG/ML VIAL (J3301) As Ordered ONE; -diazePAM 5 MG TAB As Ordered ONE; -oxyCODONE 5MG TAB As Ordered ONE
--- NOTE | 2019-10-28 01:39 | ECWPNPC ---
PATIENT NAME: DEEDEE SHEARER : 1975 GENDER: FEMALE VISIT DATE: 10/14/2019 DISCHARGE DATE: 10/14/19 1108 VISIT LOCKED DATE TIME: PHYSICIAN: STARLA CHEATHAM RESOURCE: STARLA CHEATHAM REASON FOR APPOINTMENT 1. POST PROCEDURE HISTORY OF PRESENT ILLNESS HISTORY OF PRESENT ILLNESS: HERE FOR POST PROCEDURE FOLLOW-UP. HAD BILATERAL C3-4, C4-5 CERVICAL THERAPEUTIC FACET BLOCK ON 09/29/2019. REPORTING NO SIGNIFICANT IMPROVEMENT IN PAIN POST PROCEDURE. CONTINUES WITH HEADACHE, ESPECIALLY WHEN SHE IS LAYING DOWN. DESCRIBES A PRESSURE-LIKE SENSATION IN THE MID OCCIPITAL REGION. HAS RESPONDED WELL TO TRIGGER POINT INJECTIONS IN THE PAST. STATES THAT NEUROLOGY IN [place] WAS WONDERING IF WE COULD RECOMMEND INCREASING LYRICA. CURRENTLY PATIENT IS TAKING LYRICA 150 MG TWICE A DAY. DISCUSSED MEDICATION AND TREATMENT OPTIONS. PAIN THE PATIENT DESCRIBES THE PAIN... FALL RISK SCREENING: SCREENING :NO FALLS REPORTED IN THE LAST YEAR CURRENT MEDICATIONS TAKING PROMETHAZINE HCL 25 MG TABLET 1 TABLET NEEDED ORALLY EVERY 12 HRS PRN NAUSEA TAKING ALAVERT ALLERGY/SINUS 5-120 MG TABLET EXTENDED RELEASE 12 HOUR 1 TABLET NEEDED ORALLY EVERY 12 HRS TAKING ATORVASTATIN CALCIUM 40 MG TABLET 1 TABLET ORALLY DAILY TAKING MAGNESIUM CHLORIDE - POWDER 2 DAX=194TT (4 TSPS) ORALLY TWICE DAILY NEEDED, NOTES: NONE RECENT TAKING ALBUTEROL SULFATE HFA 108 (90 BASE) MCG/ACT AEROSOL SOLUTION 2 PUFFS NEEDED INHALATION EVERY 4 HRS PRN SOB/WHEEZING, NOTES: NONE RECENT TAKING VITAMIN C ER 1000 MG TABLET EXTENDED RELEASE 1 TABLET ORALLY ONCE A DAY TAKING VERAPAMIL HCL ER 180 MG TABLET EXTENDED RELEASE 1 TABLET ORALLY TWICE A DAY TAKING PANTOPRAZOLE SODIUM 40 MG TABLET DELAYED RELEASE 1 TABLET ORALLY BID TAKING E-Z SPACER 1 SPACER ICD10: J44.9 DIRECTED WITH PRN ALBUTEROL INHALER TAKING SENOKOT S THREE TIMES A DAY TAKING VITAMIN D3 2000 UNIT CAPSULE 2 CAPSULES ORALLY ONCE A DAY TAKING FERROUS SULFATE 325 MG CAPSULE 1 TABLET ORALLY TWICE A DAY WITH ORANGE JUICE TAKING LYRICA 150 MG CAPSULE 1 CAPSULE ORALLY BID MDD2 TAKING AJOVY 225 MG/1.5ML SOLUTION PREFILLED SYRINGE 1.5 ML SUBCUTANEOUS MONTHLY TAKING OXYBUTYNIN CHLORIDE ER 5 MG TABLET EXTENDED RELEASE 24 HOUR 1 TABLET ORALLY ONCE A DAY TAKING PROCTOZONE-HC 2.5 % CREAM 1 APPLICATION TO AFFECTED AREA RECTAL TWICE A DAY NEEDED TAKING MOBIC 15 MG TABLET 1 TABLET ORALLY ONCE A DAY NEEDED TAKING ALEVE 220 MG TABLET 1 TABLET WITH FOOD OR MILK NEEDED ORALLY EVERY 12 HRS TAKING TIZANIDINE HCL 4 MG TABLET TAKE 1 TABLET BY MOUTH TWICE DAILY NEEDED. DO NOT TAKE IF TAKING BACLOFEN ON SAME DAY. , NOTES: NONE RECENT TAKING SUMATRIPTAN SUCCINATE 100 MG TABLET 1 TABLET AT LEAST 2 HOURS BETWEEN DOSES NEEDED ORALLY TWICE A DAY TAKING OXYCODONE HCL 10 MG TABLET 1 TABLET ORALLY Q12H BID MDD2 NOT-TAKING RIZATRIPTAN BENZOATE 10 MG TABLET 1 TABLET ORALLY ONCE A DAY NOT-TAKING AIMOVIG 70 MG/ML SOLUTION AUTO-INJECTOR DIRECTED SUBCUTANEOUS MEDICATION LIST REVIEWED AND RECONCILED WITH THE PATIENT PAST MEDICAL HISTORY GERD DDD, HERNIATED DISCS, SPINE ARTHRITIS COPD PER PATIENT CHRONIC MIGRAINES HX RIGHT ANKLE FX, LEFT FOOT FX, COCCYX FX R KNEE SCAR TISSUE OBESITY PCOS, HIRSUTISM HYPERLIPIDEMIA RESTLESS LEGS SYNDROME IRON DEFICIENCY ANEMIA CHRONIC FATIGUE IRREGULAR HEAVY MENSES ENDOMETRIOSIS INTERSTITIAL CYSTITIS REPORTED HISTORY OF COLONIC POLYPS ELEVATED 24 HR CORTISOL- SAW DR. GOMEZ, NO ADRENAL INSUFFICIENCY OCCIPITAL NEURALGIA CHRONIC PAIN DUE TO TRAUMA MYALGIA CONSTIPATION TUMOR UTERUS CHRONIC BACK AND NECK PAIN ALLERGIES TYLENOL: FEVER - ALLERGY ZANTAC: NUMBNESS ANDTINGLING IN HANDS AND SWOLLEN LIPS - ALLERGY HYDROCODONE-ACETAMINOPHEN: FEVER ,NAUSEA - ALLERGY PENICILLIN (FOR ALLERGIES USE ONLY): YEAST INFECTION - SIDE EFFECTS VENOFER: JOINT SWELLING - ALLERGY BANDAIDS/ADHESIVES: RASH - ALLERGY SURGICAL HISTORY TONSILLECTOMY 1990 APPENDECTOMY 1977 R KNEE FX 2002 R ANKLE FX 2016 DIAGNOSTIC LAPAROSCOPY WITH REMOVAL OF SCAR TISSUE 2011 COLONOSCOPY/ ENDOSCOPY 09/26/2018 RIGHT ANKLE HARDWARE REMOVED 10/2018 TOOTH EXTRACTION 1998 GALLBLADDER REMOVAL 04/2019 UTERINE TUMOR REMOVAL 04/2019 FAMILY HISTORY FATHER: , PANCREATITIS MOTHER: , EMPHYSEMA, ASTHMA SIBLINGS: ALIVE, SISTER JAYLA, STAGE 3A LUNG CANCER, SISTER OCTOBER HAS LEUKEMIA, SISTER YEIMI IS FROM UTERINE WITH METS TO LUNGS, LIVER, KIDNEYS; SISTER SUNDAY HAD CERVICAL CA; BROTHER ALYSSA HAS PROSTATE CA 3 BROTHER(S) , 7 SISTER(S) - HEALTHY. SOCIAL HISTORY GENERAL: TOBACCO USE ARE YOU A:NONSMOKER NEVER SMOKER HIV / HEP-C SCREENING HIV TEST OFFERED TO PATIENT:YES DATE OFFERED:08/01/2017 TEST ACCEPTED:NO HEP-C TEST OFFERED TO PATIENT:NO REASON:PATIENT DECLINED BROCHURE PROVIDED TO PATIENTYES OTHERS AT HOME: SIBLING, IN-LAW(S). EDUCATION LEVEL OF EDUCATION:COLLEGE DIET: NO MSG ,GLUTEN FREE. LANGUAGE LANGUAGES SPOKEN:ICELANDIC DOMESTIC VIOLENCE DO YOU FEEL SAFE IN YOUR ENVIRONMENT?YES NEW PATIENT PAIN DIARY TODAY'S VISIT 10/14/2019 PATIENT DESCRIBES PAIN :ACHING, HAVE IT ALL THE TIME, SHARP, STABBING, TENDER, THROBBING, SORE, SHOOTING FROM 0-10, WHAT LEVEL IS YOUR PAIN TODAY?6 IS THERE A CHANCE YOU COULD BE ?NO HAVE YOU BEEN SICK IN THE LAST WEEK (COLD, COUGH, FEVER, FLU, ETC)NO DO YOU TAKE ANY BLOOD THINNERS?NO DO YOU HAVE ANY RASHES OR OPEN SORES?NO ANY CHANGE IN BOWEL OR BLADDER CONTROL?NO ARE YOU ALLERGIC TO SHELLFISH OR IV DYE?NO ARE YOU DIABETIC?NO DO YOU HAVE A PACEMAKER OR DEFIBRILLATOR?NO ANY NEW PROBLEMS WITH MEDICINES OR NEW ALLERGIESNO ANY NEW PATTERNS OF PAIN OR NUMBNESS?NO ANY CHANGE IN YOUR MEDICAL CONDITION?NO HAVE YOU FALLEN IN THE LAST 6 MONTHS?NO DO YOU USE ANY TYPE OF TOBACCO (SMOKE, SMOKELESS, CHEW, ETC.)NO ARE YOU ABUSED, NEGLECTED, OR IN AN UNSAFE ENVIRONMENT?YES DO YOU HAVE THOUGHTS OF HURTING YOURSELF OR SOMEONE ELSE?NO DO YOU NEED ANY PRESCRIPTIONS?NO DO YOU HAVE ANY OTHER QUESTIONS OR CONCERNS?NO RECREATIONAL DRUG USE DRUG USE?NO EXERCISE: NONE. LEARNING BARRIERS / SPECIAL NEEDS BARRIERS TO LEARNING?NO HEARING IMPAIRED?NO VISION IMPAIRED?NO COGNITIVELY IMPAIRED?NO READINESS TO LEARN?YES LEARNING PREFERENCES?YES :DEMONSTRATION/VERBAL INSTRUCTION LEARNING CAPABILITIES PRESENT?YES EMOTIONAL BARRIERS?NO SPECIAL DEVICES?NO BUNDLE TIER NEEDED?NO PAIN CLINIC PFS, CLERGY, PUBLIC HEALTH REFERRALS HAS THE PATIENT BEEN EDUCATED REGARDING HIS/HER PLAN OF CARE?YES HAS THE PATIENT BEEN EDUCATED REGARDING PAIN, THE RISK FOR PAIN, THE IMPORTANCE OF EFFECTIVE PAIN MANAGEMENT, AND THE PAIN ASSESSMENT PROCESS?YES LATEX QUESTIONNAIRE LATEX ALLERGY : HAVE YOU EVER DEVELOPED ANY TYPE OF REACTION AFTER HANDLING LATEX PRODUCTS SUCH RUBBER GLOVES, CONDOMS, DIAPHRAGMS, BALLOONS, SOCKS, OR UNDERWEAR?YES - PLEASE INDICATE :OTHER (DOCUMENT IN NOTES) SOME BANDAIDS LATEX ALLERGY : HAVE YOU EVER DEVELOPED ANY TYPE OF REACTION DURING OR AFTER DENTAL APPOINTMENT, VAGINAL/RECTAL EXAMINATION, SURGICAL PROCEDURE, OR ANY OTHER EXPOSURE?NO LATEX RISK : HAVE YOU EVER HAD ANY DIFFICULTY BREATHING OR HIVES AFTER EATING OR HANDLING ANY FRUITS, OR VEGETABLES; SUCH KIWI, BANANAS, STONE FRUITS, OR CHESTNUTSNO LATEX RISK : DO YOU HAVE A PREVIOUS PERSONAL HISTORY OF MORE THAN NINE SURGERIES, SPINA BIFIDA, OR REPEATED CATHERIZATIONS? NO LATEX RISK : ARE YOU FREQUENTLY EXPOSED TO LATEX PRODUCTS IN YOUR OCCUPATION?NO DATE ASKED : 10/14/2019 CAFFEINE CAFFEINE USE?NO ADVANCE DIRECTIVE ADVANCE DIRECTIVE DISCUSSED WITH PATIENT:YES HAS HCP- MALGORZATA VELASCO [phone] JUDAISM [id number] NONE OTHER MARITAL STATUS: SINGLE. ALCOHOL SCREENING DID YOU HAVE A DRINK CONTAINING ALCOHOL IN THE PAST YEAR?NO POINTS0 INTERPRETATIONNEGATIVE OCCUPATION: UNEMPLOYED. SEXUAL HX HAD SEX IN THE LAST 12 MONTHS (VAGINAL, ORAL, OR ANAL)?NO HAVE YOU EVER HAD AN STD?NO HOSPITALIZATION/MAJOR DIAGNOSTIC PROCEDURE ABOVE SURGERIES REVIEW OF SYSTEMS REVIEWED BY: PROVIDER: STARLA HURTADO . CONSTITUTIONAL: ANY CHANGE IN YOUR MEDICAL CONDITION? NO . CHILLS NO . FEVER NO . INFECTION: DO YOU HAVE NEW INFECTIONS? NO . DO YOU HAVE HISTORY OF MRSA? NO . MUSCULOSKELETAL: ANY NEW PATTERNS OF PAIN OR NUMBNESS? NO . GASTROENTEROLOGY: ANY NEW CHANGE IN BOWEL CONTROL? NO . GENITOURINARY: ANY NEW CHANGE IN BLADDER CONTROL? NO . IS THERE A CHANCE YOU COULD BE ? NO . HEMATOLOGY/LYMPH: DO YOU TAKE ANY BLOOD THINNERS? (FOR EXAMPLE- COUMADIN, PLAVIX, AGGRENOX, PLATEL, PRADAXA, OR XARELTO) NO . WHEN WAS YOUR LAST DOSE? DATE: TIME: . NEUROLOGY: HAVE YOU FALLEN IN THE PAST 12 MONTHS? NO . ANY NEW EXTREMITY NUMBNESS OR WEAKNESS? NO . CARDIOLOGY: DO YOU HAVE A PACEMAKER OR DEFIBRILLATOR? NO . RESPIRATORY: HAVE YOU BEEN SICK IN THE PAST WEEK? NO . FEVER NO . FLU LIKE SYMPTOMS? NO . COUGH NO . INTEGUMENTARY: DO YOU HAVE ANY RASHES OR OPEN SORES? NO . ALLERGIC/IMMUNO: ARE YOU ALLERGIC TO IV DYE? NO . ANY NEW ALLERGIES? NO . PSYCHIATRIC: DO YOU HAVE THOUGHTS OF HURTING YOURSELF OR SOMEONE ELSE? NO . ARE YOU ABUSED, NEGLECTED, OR IN AN UNSAFE ENVIRONMENT? YES, NIECE IS LIVING WITH PATIENT, HAS A RESTRAINING ORDER. PT HAS NOTIFIED PROPER AUTHORITIES . ENDOCRINOLOGY: ARE YOU DIABETIC? NO . OTHER: DO YOU NEED ANY PRESCRIPTIONS? NO . IF YES, PLEASE LIST: ____ . ANY NEW PROBLEMS WITH YOUR MEDICATIONS? NO . WHEN DID YOU LAST EAT? ____ . WHEN DID YOU LAST DRINK? ____ . WHAT DID YOU LAST DRINK? ____ . NAME OF PERSON DRIVING YOU HOME? ____ . DO YOU HAVE ANY OTHER QUESTIONS OR CONCERNS NO . VITAL SIGNS WT 214.6 LBS, HT 60 IN, BMI 41.91 INDEX, BP 132/75 MM HG, HR 89 /MIN, RR 18 /MIN, TEMP 97.4 F, OXYGEN SAT % 97%, SAFE IN ENV? (Y/N) Y, NA INITIALS AW 0927, REVIEWED BY: RAIMUNDO. EXAMINATION GENERAL EXAMINATION: GENERAL AWAKE,ALERT ,PLEAASANT . PSYCH AFFECT NORMAL . LUNGS: LUNG QUINTERO ARE CLEAR TO AUSCULTATION BILATERALLY. GOOD MOVEMENT OF AIR . HEART: S1, S2 IN A REGULAR RATE AND RHYTHM. NO SIGNIFICANT MURMURS, RUBS OR GALLOPS NOTED . CERVICAL: TRIGGER POINTS: UPPER CERVICAL /OCCIPITAL REGION. ASSESSMENTS MYALGIA, OTHER SITE - M79.18 (PRIMARY) TREATMENT MYALGIA, OTHER SITE INCREASE LYRICA CAPSULE, 200 MG, 1 CAPSULE, ORALLY, BID MDD2, 30 DAYS, 60, REFILLS 2 CONTINUE MOBIC TABLET, 15 MG, 1 TABLET, ORALLY, ONCE A DAY NEEDED CONTINUE TIZANIDINE HCL TABLET, 4 MG, TAKE 1 TABLET BY MOUTH TWICE DAILY NEEDED. DO NOT TAKE IF TAKING BACLOFEN ON SAME DAY., NOTES: NONE RECENT CONTINUE OXYCODONE HCL TABLET, 10 MG, 1 TABLET, ORALLY, Q12H BID MDD2 NOTES: TPI BILAT UPPER CERVICAL/OCCIPITAL, ISTOP REGISTRY REVIEWED AND DEMONSTRATES COMPLLIANCE. (REF # ) BRINGS IN MEDICATIONS WHICH IS APPROPRIATE FOR WHAT WAS DISPENSED. RECENT URINE TOXICOLOGY REVIEWED. NO UNAUTHORIZED MEDICATIONS. NO ILLICIT SUBSTANCES AND PRESCRIBED MEDICATIONS WERE PRESENT. , RISKS OF NARCOTIC/OPIOD MEDICATIONS INCLUDES BUT IS NOT LIMITED TO RISK OF DEPENDANCE/DEVELOPMENT OF ADDICTION, MOOD DISTURBANCE AND DEPRESSION, OSTEOPOROSIS, HORMONAL AND LABIDAL CHANGES, RESPIRATORY DEPRESSION AND . PATIENT IS ADVISED NOT TO DRIVE OR DRINK ALCOHOL WHILE ON THESE MEDICATIONS. PREVENTIVE MEDICINE PAIN CLINIC TEACHING: THE PATIENT HAS BEEN EDUCATED REGARDING HIS/HER PLAN OF CARE : REVIEWED AND DISCUSSED WRITTEN PRE-PROCEDURE INSTRUCTIONS, DISCUSSED DISCHARGE INSTRUCTIONS WITH PT, PT ACKNOWLEDGED UNDERSTANDING, DS PROCEDURE CODES [id number] ESTABILISHED PATIENT [facility] FACILITY CHARGE DISPOSITION & COMMUNICATION FOLLOW UP POST (REASON: TPI BILAT UPPER CERVICAL/OCCIPITAL) ELECTRONICALLY SIGNED BY BRYANT MIXON ON 10/27/2019 AT 02:37 PM EDT DISCLAIMER : THIS IS A VISIT SUMMARY EXTRACTED FROM THE [employer] CHART. IT IS NOT A COPY OF THE [employer] PROGRESS NOTE. JOHNNIE
== END ==
LOC: M PAIN 10:00
PROVIDERS: ATTEND Nurse Practitioner Family
DX: M79.18 Myalgia, other site (principal); Z79.899 Other long term (current) drug therapy; Z88.0 Allergy status to penicillin; Z88.5 Allergy status to narcotic agent; Z88.8 Allergy status to other drugs, medicaments and biological substances; Z91.048 Other nonmedicinal substance allergy status

== ENCOUNTER → 2019-10-17 | Outpatient (CLI) | payer MEDICARE, MEDICAID ==
[~2019-10-17] MED LIST changes: +BUPIVACAINE HCL 0.25% 10ML VIAL As Ordered ONE; +BUPIVACAINE HCL 0.25% 30ML VIAL As Ordered ONE; +TRIAMCINOLONE ACETONIDE SUSP 40 MG/ML VIAL (J3301) As Ordered ONE; +diazePAM 5 MG TAB As Ordered ONE; +oxyCODONE 5MG TAB As Ordered ONE
--- NOTE | 2019-10-29 00:26 | ECWPNPC ---
PATIENT NAME: DEEDEE SHEARER : 1975 GENDER: FEMALE VISIT DATE: 10/17/2019 DISCHARGE DATE: 10/17/19 1049 VISIT LOCKED DATE TIME: PHYSICIAN: DAVID NINO MD RESOURCE: DAVID NINO MD REASON FOR APPOINTMENT 1. TPI BILAT UPPER CERVICAL HISTORY OF PRESENT ILLNESS HISTORY OF PRESENT ILLNESS: PAIN THE PATIENT DESCRIBES THE PAIN... FALL RISK SCREENING: SCREENING :NO FALLS REPORTED IN THE LAST YEAR CURRENT MEDICATIONS TAKING PROMETHAZINE HCL 25 MG TABLET 1 TABLET NEEDED ORALLY EVERY 12 HRS PRN NAUSEA, NOTES: 2 DAYS AGO TAKING ALAVERT ALLERGY/SINUS 5-120 MG TABLET EXTENDED RELEASE 12 HOUR 1 TABLET NEEDED ORALLY EVERY 12 HRS, NOTES: WEEK AGO TAKING ATORVASTATIN CALCIUM 40 MG TABLET 1 TABLET ORALLY DAILY, NOTES: 10/16/20192199 TAKING MAGNESIUM CHLORIDE - POWDER 2 [id number] (4 TSPS) ORALLY TWICE DAILY NEEDED, NOTES: NONE RECENT TAKING ALBUTEROL SULFATE HFA 108 (90 BASE) MCG/ACT AEROSOL SOLUTION 2 PUFFS NEEDED INHALATION EVERY 4 HRS PRN SOB/WHEEZING, NOTES: NONE RECENT TAKING VITAMIN C ER 1000 MG TABLET EXTENDED RELEASE 1 TABLET ORALLY ONCE A DAY, NOTES: 10/16/2019 AM TAKING VERAPAMIL HCL ER 180 MG TABLET EXTENDED RELEASE 1 TABLET ORALLY TWICE A DAY, NOTES: 10/17/2019 0700 TAKING PANTOPRAZOLE SODIUM 40 MG TABLET DELAYED RELEASE 1 TABLET ORALLY BID, NOTES: 10/17/2019 07 TAKING E-Z SPACER 1 SPACER ICD10: J44.9 DIRECTED WITH PRN ALBUTEROL INHALER TAKING SENOKOT S THREE TIMES A DAY, NOTES: FEW DAYS AGO TAKING VITAMIN D3 2000 UNIT CAPSULE 2 CAPSULES ORALLY ONCE A DAY, NOTES: 10/17/2019 0700 TAKING FERROUS SULFATE 325 MG CAPSULE 1 TABLET ORALLY TWICE A DAY WITH ORANGE JUICE, NOTES: 10/17/2019 07 TAKING AJOVY 225 MG/1.5ML SOLUTION PREFILLED SYRINGE 1.5 ML SUBCUTANEOUS MONTHLY, NOTES: WEEK AGO TAKING OXYBUTYNIN CHLORIDE ER 5 MG TABLET EXTENDED RELEASE 24 HOUR 1 TABLET ORALLY ONCE A DAY, NOTES: 10/16/20192199 TAKING PROCTOZONE-HC 2.5 % CREAM 1 APPLICATION TO AFFECTED AREA RECTAL TWICE A DAY NEEDED, NOTES: NONE RECENT TAKING ALEVE 220 MG TABLET 1 TABLET WITH FOOD OR MILK NEEDED ORALLY EVERY 12 HRS, NOTES: NONE RECENT TAKING SUMATRIPTAN SUCCINATE 100 MG TABLET 1 TABLET AT LEAST 2 HOURS BETWEEN DOSES NEEDED ORALLY TWICE A DAY, NOTES: NONE RECENT TAKING LYRICA 200 MG CAPSULE 1 CAPSULE ORALLY BID MDD2, NOTES: 10/17/2019 0700 TAKING MOBIC 15 MG TABLET 1 TABLET ORALLY ONCE A DAY NEEDED, NOTES: NONE RECENT TAKING TIZANIDINE HCL 4 MG TABLET TAKE 1 TABLET BY MOUTH TWICE DAILY NEEDED. DO NOT TAKE IF TAKING BACLOFEN ON SAME DAY. , NOTES: NONE RECENT TAKING OXYCODONE HCL 10 MG TABLET 1 TABLET ORALLY Q12H BID MDD2, NOTES: 10/16/2019 2200 NOT-TAKING RIZATRIPTAN BENZOATE 10 MG TABLET 1 TABLET ORALLY ONCE A DAY NOT-TAKING AIMOVIG 70 MG/ML SOLUTION AUTO-INJECTOR DIRECTED SUBCUTANEOUS MEDICATION LIST REVIEWED AND RECONCILED WITH THE PATIENT PAST MEDICAL HISTORY GERD DDD, HERNIATED DISCS, SPINE ARTHRITIS COPD PER PATIENT CHRONIC MIGRAINES HX RIGHT ANKLE FX, LEFT FOOT FX, COCCYX FX R KNEE SCAR TISSUE OBESITY PCOS, HIRSUTISM HYPERLIPIDEMIA RESTLESS LEGS SYNDROME IRON DEFICIENCY ANEMIA CHRONIC FATIGUE IRREGULAR HEAVY MENSES ENDOMETRIOSIS INTERSTITIAL CYSTITIS REPORTED HISTORY OF COLONIC POLYPS ELEVATED 24 HR CORTISOL- SAW DR. GOMEZ, NO ADRENAL INSUFFICIENCY OCCIPITAL NEURALGIA CHRONIC PAIN DUE TO TRAUMA MYALGIA CONSTIPATION TUMOR UTERUS CHRONIC BACK AND NECK PAIN ALLERGIES TYLENOL: FEVER - ALLERGY ZANTAC: NUMBNESS ANDTINGLING IN HANDS AND SWOLLEN LIPS - ALLERGY HYDROCODONE-ACETAMINOPHEN: FEVER ,NAUSEA - ALLERGY PENICILLIN (FOR ALLERGIES USE ONLY): YEAST INFECTION - SIDE EFFECTS VENOFER: JOINT SWELLING - ALLERGY BANDAIDS/ADHESIVES: RASH - ALLERGY SURGICAL HISTORY TONSILLECTOMY 1990 APPENDECTOMY 1977 R KNEE FX 2002 R ANKLE FX 2016 DIAGNOSTIC LAPAROSCOPY WITH REMOVAL OF SCAR TISSUE 2011 COLONOSCOPY/ ENDOSCOPY 09/26/2018 RIGHT ANKLE HARDWARE REMOVED 10/2018 TOOTH EXTRACTION 1998 GALLBLADDER REMOVAL 04/2019 UTERINE TUMOR REMOVAL 04/2019 FAMILY HISTORY FATHER: , PANCREATITIS MOTHER: , EMPHYSEMA, ASTHMA SIBLINGS: ALIVE, SISTER JAYLA, STAGE 3A LUNG CANCER, SISTER OCTOBER HAS LEUKEMIA, SISTER YEIMI IS FROM UTERINE WITH METS TO LUNGS, LIVER, KIDNEYS; SISTER SUNDAY HAD CERVICAL CA; BROTHER ALYSSA HAS PROSTATE CA 3 BROTHER(S) , 7 SISTER(S) - HEALTHY. SOCIAL HISTORY GENERAL: TOBACCO USE ARE YOU A:NONSMOKER NEVER SMOKER HIV / HEP-C SCREENING HIV TEST OFFERED TO PATIENT:YES DATE OFFERED:08/01/2017 TEST ACCEPTED:NO HEP-C TEST OFFERED TO PATIENT:NO REASON:PATIENT DECLINED BROCHURE PROVIDED TO PATIENTYES OTHERS AT HOME: SIBLING, IN-LAW(S). EDUCATION LEVEL OF EDUCATION:COLLEGE DIET: NO MSG ,GLUTEN FREE. LANGUAGE LANGUAGES SPOKEN:MAORI DOMESTIC VIOLENCE DO YOU FEEL SAFE IN YOUR ENVIRONMENT?YES NEW PATIENT PAIN DIARY TODAY'S VISITNOTES 10/17/2019 PATIENT DESCRIBES PAIN :ACHING, HAVE IT ALL THE TIME, THROBBING, SHOOTING FROM 0-10, WHAT LEVEL IS YOUR PAIN TODAY?8 RECREATIONAL DRUG USE DRUG USE?NO EXERCISE: NONE. LEARNING BARRIERS / SPECIAL NEEDS BARRIERS TO LEARNING?NO HEARING IMPAIRED?NO VISION IMPAIRED?NO COGNITIVELY IMPAIRED?NO READINESS TO LEARN?YES LEARNING PREFERENCES?YES :DEMONSTRATION/VERBAL INSTRUCTION LEARNING CAPABILITIES PRESENT?YES EMOTIONAL BARRIERS?NO SPECIAL DEVICES?NO EVENT HOST NEEDED?NO PAIN CLINIC PFS, CLERGY, PUBLIC HEALTH REFERRALS HAS THE PATIENT BEEN EDUCATED REGARDING HIS/HER PLAN OF CARE?YES HAS THE PATIENT BEEN EDUCATED REGARDING PAIN, THE RISK FOR PAIN, THE IMPORTANCE OF EFFECTIVE PAIN MANAGEMENT, AND THE PAIN ASSESSMENT PROCESS?YES LATEX QUESTIONNAIRE LATEX ALLERGY : HAVE YOU EVER DEVELOPED ANY TYPE OF REACTION AFTER HANDLING LATEX PRODUCTS SUCH RUBBER GLOVES, CONDOMS, DIAPHRAGMS, BALLOONS, SOCKS, OR UNDERWEAR?YES LATEX ALLERGY : HAVE YOU EVER DEVELOPED ANY TYPE OF REACTION DURING OR AFTER DENTAL APPOINTMENT, VAGINAL/RECTAL EXAMINATION, SURGICAL PROCEDURE, OR ANY OTHER EXPOSURE?NO - PLEASE INDICATE :OTHER (DOCUMENT IN NOTES) SOME BANDAIDS DATE ASKED : 10/14/2019 LATEX RISK : HAVE YOU EVER HAD ANY DIFFICULTY BREATHING OR HIVES AFTER EATING OR HANDLING ANY FRUITS, OR VEGETABLES; SUCH KIWI, BANANAS, STONE FRUITS, OR CHESTNUTSNO LATEX RISK : DO YOU HAVE A PREVIOUS PERSONAL HISTORY OF MORE THAN NINE SURGERIES, SPINA BIFIDA, OR REPEATED CATHERIZATIONS? NO LATEX RISK : ARE YOU FREQUENTLY EXPOSED TO LATEX PRODUCTS IN YOUR OCCUPATION?NO CAFFEINE CAFFEINE USE?NO ADVANCE DIRECTIVE ADVANCE DIRECTIVE DISCUSSED WITH PATIENT:YES HAS FABRICE- MALGORZATA VELASCO [phone] GNOSTICIST [id number] NONE OTHER MARITAL STATUS: SINGLE. ALCOHOL SCREENING DID YOU HAVE A DRINK CONTAINING ALCOHOL IN THE PAST YEAR?NO POINTS0 INTERPRETATIONNEGATIVE OCCUPATION: UNEMPLOYED. SEXUAL HX HAD SEX IN THE LAST 12 MONTHS (VAGINAL, ORAL, OR ANAL)?NO HAVE YOU EVER HAD AN STD?NO HOSPITALIZATION/MAJOR DIAGNOSTIC PROCEDURE ABOVE SURGERIES REVIEW OF SYSTEMS REVIEWED BY: PROVIDER: . CONSTITUTIONAL: ANY CHANGE IN YOUR MEDICAL CONDITION? NO . CHILLS NO . FEVER NO . INFECTION: DO YOU HAVE NEW INFECTIONS? NO . DO YOU HAVE HISTORY OF MRSA? NO . MUSCULOSKELETAL: ANY NEW PATTERNS OF PAIN OR NUMBNESS? NO . GASTROENTEROLOGY: ANY NEW CHANGE IN BOWEL CONTROL? NO . GENITOURINARY: ANY NEW CHANGE IN BLADDER CONTROL? NO . IS THERE A CHANCE YOU COULD BE ? NO . HEMATOLOGY/LYMPH: DO YOU TAKE ANY BLOOD THINNERS? (FOR EXAMPLE- COUMADIN, PLAVIX, AGGRENOX, PLATEL, PRADAXA, OR XARELTO) NO . WHEN WAS YOUR LAST DOSE? DATE: TIME: . NEUROLOGY: HAVE YOU FALLEN IN THE PAST 12 MONTHS? NO . ANY NEW EXTREMITY NUMBNESS OR WEAKNESS? NO . CARDIOLOGY: DO YOU HAVE A PACEMAKER OR DEFIBRILLATOR? NO . RESPIRATORY: HAVE YOU BEEN SICK IN THE PAST WEEK? NO . FEVER NO . FLU LIKE SYMPTOMS? NO . COUGH NO . INTEGUMENTARY: DO YOU HAVE ANY RASHES OR OPEN SORES? NO . ALLERGIC/IMMUNO: ARE YOU ALLERGIC TO IV DYE? NO . ANY NEW ALLERGIES? NO . PSYCHIATRIC: DO YOU HAVE THOUGHTS OF HURTING YOURSELF OR SOMEONE ELSE? NO . ARE YOU ABUSED, NEGLECTED, OR IN AN UNSAFE ENVIRONMENT? NO . ENDOCRINOLOGY: ARE YOU DIABETIC? NO . OTHER: DO YOU NEED ANY PRESCRIPTIONS? NO . IF YES, PLEASE LIST: ____ . ANY NEW PROBLEMS WITH YOUR MEDICATIONS? NO . WHEN DID YOU LAST EAT? ____10/16/2019 2130 . WHEN DID YOU LAST DRINK? ____10/17/2019 0700 . WHAT DID YOU LAST DRINK? ____WATER . NAME OF PERSON DRIVING YOU HOME? ____[employer] . DO YOU HAVE ANY OTHER QUESTIONS OR CONCERNS NO . VITAL SIGNS WT 214 LBS, HT 60 IN, BMI 41.79 INDEX, BP 130/73 MM HG, HR 92 /MIN, RR 18 /MIN, TEMP 97.0 F, OXYGEN SAT % 94%, SAFE IN ENV? (Y/N) YES, NA INITIALS AW 0902, REVIEWED BY: CHA. ASSESSMENTS MYALGIA, OTHER SITE - M79.18 (PRIMARY) PROCEDURES PN TRIGGER POINT INJECTION WITH STEROIDS PRE PROCEDURE DIAGNOSIS 1. MYALGIA 2. PAIN AT BILATERAL NECK AREA. POST PROCEDURE DIAGNOSIS 1. MYALGIA 2. PAIN AT BILATERAL NECK AREA. PROCEDURE TRIGGER POINT INJECTION AT RIGHT AND LEFT NECK AREA. SURGEON DR. DAVID NINO MOTORBOAT OPERATOR NONE ANESTHESIA LOCAL PRE PROCEDURE NOTE THE PATIENT HAS A HISTORY OF CHRONIC PAIN AT THE RIGHT AND LEFT NECK AREA. I EVALUATED THE PATIENT AND REVIEWED THE CHART. THERE IS EVIDENCE OF BANDS OF TISSUE WITH RESTRICTION OF MOVEMENT AND PRESENCE OF TRIGGER POINT AT THE AFFECTED AREA. I WENT OVER THE RISKS, ALTERNATIVES, AND BENEFITS ASSOCIATED WITH THIS PROCEDURE. THE PATIENT WOULD LIKE TO PROCEED AND GIVE CONSENT TO PERFORMED THE PROCEDURE. THE PATIENT DENIES UNEXPLAINABLE WEIGHT LOSS, FEVER, CHILLS, OR NEW CHANGES IN URINARY OR BOWEL CONTROL DESCRIPTION OF PROCEDURE THE PATIENT WAS BROUGHT TO THE PROCEDURE ROOM AND PLACED IN THE SITTING POSITION. THE AREA WAS CLEANED WITH ALCOHOL. THE PROCEDURE WAS DONE USING ASEPTIC STERILE TECHNIQUE. I CHECKED LATERALITY AND THE LEVEL WHERE THE PROCEDURE WAS GOING TO BE PERFORMED WITH THE PATIENT AND THE SUPPORTING STAFF AT THE MOMENT OF THE TIME OUT IN THE PROCEDURE ROOM. USING A 25-GAUGE NEEDLE, TRIGGER POINTS WERE INJECTED AT THE RIGHT AND LEFT NECK AREA WITH A TOTAL OF 40 ML OF BUPIVACAINE 0.25% AND KENALOG 40 MG. THERE WAS NO EVIDENCE OF BLOOD, PARESTHESIA OR CEREBROSPINAL FLUID DURING THE PROCEDURE. THE PATIENT WAS SENT TO THE RECOVERY ROOM. THE PATIENT WAS MOVING THE EXTREMITIES AND DOING WELL. THERE WAS NO COMPLICATION DURING THE PROCEDURE POST PROCEDURE NOTE THE PATIENT WILL BE SEEN IN A FOLLOW UP IN THE NEXT FEW WEEKS. I AM LOOKING FOR LONG LASTING PAIN RELIEF FOR THE PATIENT WITH THIS INJECTION. INSTRUCTIONS WERE GIVEN, QUESTIONS WERE ANSWERED, AND THE PATIENT EXPRESSED UNDERSTANDING AND AGREES WITH THE PLAN. I, DOUGLAS PEPPER, DOCUMENTED THE ABOVE INFORMATION ACTING A SCRIBE FOR DR. NINO. I HAVE REVIEWED THE ABOVE DOCUMENT, WRITTEN BY DOUGLAS ADLER AND I VERIFY THAT IT IS ACCURATE. PROCEDURE CODES 48091 INJ TRIGGER POINT /2 [facility] [place] COMMUNICATION FOLLOW UP 4 WEEKS (REASON: TPI/OPEN LS MRI/F/UP WITH GRAPHIC DESIGN TEACHER FOR MEDS) ELECTRONICALLY SIGNED BY DAVID NINO MD, MD ON 10/28/2019 AT 04:54 PM EDT DISCLAIMER : THIS IS A VISIT SUMMARY EXTRACTED FROM THE [employer] CHART. IT IS NOT A COPY OF THE [employer] PROGRESS NOTE. MTDD
== END ==
LOC: M PAIN 09:00
PROVIDERS: ATTEND Anesthesiology
DX: M79.18 Myalgia, other site (principal); J44.9 Chronic obstructive pulmonary disease, unspecified; Z79.891 Long term (current) use of opiate analgesic; Z79.899 Other long term (current) drug therapy; Z88.0 Allergy status to penicillin; Z88.5 Allergy status to narcotic agent; Z88.8 Allergy status to other drugs, medicaments and biological substances; Z91.048 Other nonmedicinal substance allergy status
CPT/HCPCS: 20552; J3301

== ENCOUNTER → 2019-10-21 | Outpatient (CLI) | payer MEDICARE, MEDICAID ==
[~2019-10-21] MED LIST changes: -BUPIVACAINE HCL 0.25% 10ML VIAL As Ordered ONE; -BUPIVACAINE HCL 0.25% 30ML VIAL As Ordered ONE; -TRIAMCINOLONE ACETONIDE SUSP 40 MG/ML VIAL (J3301) As Ordered ONE; -diazePAM 5 MG TAB As Ordered ONE; -oxyCODONE 5MG TAB As Ordered ONE
== END ==
LOC: M RAD 07:54
PROVIDERS: ATTEND Anesthesiology
DX: M54.5 Low back pain (principal)

== ENCOUNTER → 2019-10-21 | Outpatient (CLI) | payer MEDICARE, MEDICAID ==
[~2019-10-21] MED LIST changes: +E-Z-GAS II EFFERVESCENT PACKET (SODIUM BICARB./CITRIC ACID/SIMETHICONE) As Ordered ONE; +E-Z-HD 98% w/w 340GM SUSP BTL As Ordered ONE; +E-Z-PAQUE 96% w/w SUSP 176GM BTL As Ordered ONE
--- NOTE | 2019-10-21 10:33 | REP ---
Examination Requested: Upper G.I. Series With KUB Reason For Exam: Abdomen pain gastroesophageal reflux disease Upper GI Air Contrast The procedure was performed by DEISY Quezada, under the direct supervision of Dr. Cruz. The images were reviewed with Dr. Cruz. The battery tester and repairer film shows no organomegaly or pathological masses. The intestinal gas pattern appears normal. Liquid barium and gas producing crystals were given in the erect position as well as liquid barium in the prone oblique position in order to perform a double contrast upper GI examination. The oral and pharyngeal stages of deglutition were unremarkable. Esophageal transport is efficient and there is no esophagitis, stricture, or mucosal ring noted. There is no hiatal hernia. A small loss of gastroesophageal reflux were visualized throughout the course of the exam. The stomach thao are normally outlined. The rugal folds are smooth and regular. There is no gastritis, neoplasm, ulcer disease noted. Double contrast imaging of the duodenum was limited but unremarkable. The duodenal thao are normally outlined. The mucosal folds are smooth and regular. There is no duodenitis, peptic ulcer disease, or neoplasm noted. The visualized portion of the proximal small bowel appears normal in course and caliber. Impression: 1. Gastroesophageal reflux visualized throughout the exam. 0.5 minutes of fluoroscopy time was utilized for this procedure. Some fluoroscopic images are performed with last image hold technology. These images require no additional radiation. Reviewed by DEISY Costello 10/21/2019 10:11 A Electronically Signed by Lon Cruz MD 10/21/2019 10:24 A
== END ==
LOC: M RAD 07:49
PROVIDERS: ATTEND Physician Assistant Medical
DX: R10.10 Upper abdominal pain, unspecified (principal); K21.9 Gastro-esophageal reflux disease without esophagitis

== ENCOUNTER → 2019-10-31 | Outpatient (CLI) | payer MEDICARE, MEDICAID ==
[~2019-10-31] MED LIST changes: -E-Z-GAS II EFFERVESCENT PACKET (SODIUM BICARB./CITRIC ACID/SIMETHICONE) As Ordered ONE; -E-Z-HD 98% w/w 340GM SUSP BTL As Ordered ONE; -E-Z-PAQUE 96% w/w SUSP 176GM BTL As Ordered ONE
--- NOTE | 2019-11-01 01:39 | ECWPNPC ---
PATIENT NAME: DEEDEE SHEARER : 1975 GENDER: FEMALE VISIT DATE: 10/31/2019 DISCHARGE DATE: 10/31/19 1052 VISIT LOCKED DATE TIME: PHYSICIAN: STARLA CHEATHAM RESOURCE: STARLA CHEATHAM REASON FOR APPOINTMENT 1. POST PROCEDURE HISTORY OF PRESENT ILLNESS HISTORY OF PRESENT ILLNESS: HERE FOR POST PROCEDURE FOLLOW-UP. HAD TRIGGER POINT INJECTION, BILATERAL UPPER CERVICAL AND. REPORTING IMPROVEMENT POST PROCEDURE. CHIEF AREA OF PAIN IS LOWER BACK. PATIENT STATES RIGHT LOW BACK HAS BEEN SO BAD OVER THE PAST WEEK THAT SHE'S HAVING DIFFICULTY WALKING. HAS RESPONDED WELL TO TRIGGER POINT INJECTIONS WITH STEROIDS IN THE PAST. SHE IS ASKING TO BE CONSIDERED TO HAVE THOSE SOON POSSIBLE. AT LAST VISIT, WE INCREASED LYRICA TO 200 MG TWICE A DAY. PATIENT DOES NOT FEEL THOUGH THAT IS HELPING. REVIEWED MEDICATIONS AND DISCUSSED INCREASING LYRICA AND ADDING A MUSCLE RELAXANT. PATIENT IS RECEPTIVE. SHE STILL WOULD LIKE A PHONE CALL FROM DR. NINO IN 2 WEEKS TO SEE IF SHE CAN BE PLACED ON SCHEDULE SOON POSSIBLE FOR TRIGGER POINT INJECTIONS, RIGHT LOW BACK. RATING PAIN LEVEL A 7/10 VAS. PAIN THE PATIENT DESCRIBES THE PAIN... FALL RISK SCREENING: SCREENING :NO FALLS REPORTED IN THE LAST YEAR CURRENT MEDICATIONS TAKING PROMETHAZINE HCL 25 MG TABLET 1 TABLET NEEDED ORALLY EVERY 12 HRS PRN NAUSEA TAKING ALAVERT ALLERGY/SINUS 5-120 MG TABLET EXTENDED RELEASE 12 HOUR 1 TABLET NEEDED ORALLY EVERY 12 HRS TAKING ATORVASTATIN CALCIUM 40 MG TABLET 1 TABLET ORALLY DAILY TAKING MAGNESIUM CHLORIDE - POWDER 2 NVT=[id number] (4 TSPS) ORALLY TWICE DAILY NEEDED, NOTES: NONE RECENT TAKING ALBUTEROL SULFATE HFA 108 (90 BASE) MCG/ACT AEROSOL SOLUTION 2 PUFFS NEEDED INHALATION EVERY 4 HRS PRN SOB/WHEEZING, NOTES: NONE RECENT TAKING VITAMIN C ER 1000 MG TABLET EXTENDED RELEASE 1 TABLET ORALLY ONCE A DAY TAKING VERAPAMIL HCL ER 180 MG TABLET EXTENDED RELEASE 1 TABLET ORALLY TWICE A DAY TAKING PANTOPRAZOLE SODIUM 40 MG TABLET DELAYED RELEASE 1 TABLET ORALLY BID TAKING E-Z SPACER 1 SPACER ICD10: J44.9 DIRECTED WITH PRN ALBUTEROL INHALER TAKING SENOKOT S THREE TIMES A DAY TAKING VITAMIN D3 2000 UNIT CAPSULE 2 CAPSULES ORALLY ONCE A DAY TAKING FERROUS SULFATE 325 MG CAPSULE 1300 MG ORALLY DAILY, NOTES: PATIENT STATES 1300 MG DAILY AT THIS TIME TAKING OXYBUTYNIN CHLORIDE ER 5 MG TABLET EXTENDED RELEASE 24 HOUR 1 TABLET ORALLY ONCE A DAY TAKING PROCTOZONE-HC 2.5 % CREAM 1 APPLICATION TO AFFECTED AREA RECTAL TWICE A DAY NEEDED, NOTES: NONE RECENT TAKING ALEVE 220 MG TABLET 1 TABLET WITH FOOD OR MILK NEEDED ORALLY EVERY 12 HRS, NOTES: NONE RECENT TAKING SUMATRIPTAN SUCCINATE 100 MG TABLET 1 TABLET AT LEAST 2 HOURS BETWEEN DOSES NEEDED ORALLY TWICE A DAY, NOTES: NONE RECENT TAKING LYRICA 200 MG CAPSULE 1 CAPSULE ORALLY BID MDD2 TAKING MOBIC 15 MG TABLET 1 TABLET ORALLY ONCE A DAY NEEDED, NOTES: NONE RECENT TAKING TIZANIDINE HCL 4 MG TABLET TAKE 1 TABLET BY MOUTH TWICE DAILY NEEDED. DO NOT TAKE IF TAKING BACLOFEN ON SAME DAY. , NOTES: NONE RECENT TAKING OXYCODONE HCL 10 MG TABLET 1 TABLET ORALLY Q12H BID MDD2 TAKING SPIRONOLACTONE 25 MG TABLET 1 TABLET ORALLY ONCE A DAY TAKING EMGALITY 120 MG/ML SOLUTION AUTO-INJECTOR DIRECTED SUBCUTANEOUS NOT-TAKING AJOVY 225 MG/1.5ML SOLUTION PREFILLED SYRINGE 1.5 ML SUBCUTANEOUS MONTHLY NOT-TAKING RIZATRIPTAN BENZOATE 10 MG TABLET 1 TABLET ORALLY ONCE A DAY NOT-TAKING AIMOVIG 70 MG/ML SOLUTION AUTO-INJECTOR DIRECTED SUBCUTANEOUS MEDICATION LIST REVIEWED AND RECONCILED WITH THE PATIENT PAST MEDICAL HISTORY GERD DDD, HERNIATED DISCS, SPINE ARTHRITIS COPD PER PATIENT CHRONIC MIGRAINES HX RIGHT ANKLE FX, LEFT FOOT FX, COCCYX FX R KNEE SCAR TISSUE OBESITY PCOS, HIRSUTISM HYPERLIPIDEMIA RESTLESS LEGS SYNDROME IRON DEFICIENCY ANEMIA CHRONIC FATIGUE IRREGULAR HEAVY MENSES ENDOMETRIOSIS INTERSTITIAL CYSTITIS REPORTED HISTORY OF COLONIC POLYPS ELEVATED 24 HR CORTISOL- SAW DR. GOMEZ, NO ADRENAL INSUFFICIENCY OCCIPITAL NEURALGIA CHRONIC PAIN DUE TO TRAUMA MYALGIA CONSTIPATION TUMOR UTERUS CHRONIC BACK AND NECK PAIN ALLERGIES TYLENOL: FEVER - ALLERGY ZANTAC: NUMBNESS ANDTINGLING IN HANDS AND SWOLLEN LIPS - ALLERGY HYDROCODONE-ACETAMINOPHEN: FEVER ,NAUSEA - ALLERGY PENICILLIN (FOR ALLERGIES USE ONLY): YEAST INFECTION - SIDE EFFECTS VENOFER: JOINT SWELLING - ALLERGY BANDAIDS/ADHESIVES: RASH - ALLERGY SURGICAL HISTORY TONSILLECTOMY 1990 APPENDECTOMY 1977 R KNEE FX 2002 R ANKLE FX 2016 DIAGNOSTIC LAPAROSCOPY WITH REMOVAL OF SCAR TISSUE 2011 COLONOSCOPY/ ENDOSCOPY 09/26/2018 RIGHT ANKLE HARDWARE REMOVED 10/2018 TOOTH EXTRACTION 1998 GALLBLADDER REMOVAL 04/2019 UTERINE TUMOR REMOVAL 04/2019 FAMILY HISTORY FATHER: , PANCREATITIS MOTHER: , EMPHYSEMA, ASTHMA SIBLINGS: ALIVE, SISTER JAYLA, STAGE 3A LUNG CANCER, SISTER OCTOBER HAS LEUKEMIA, SISTER YEIMI IS FROM UTERINE WITH METS TO LUNGS, LIVER, KIDNEYS; SISTER SUNDAY HAD CERVICAL CA; BROTHER ALYSSA HAS PROSTATE CA 3 BROTHER(S) , 7 SISTER(S) - HEALTHY. SOCIAL HISTORY GENERAL: TOBACCO USE ARE YOU A:NONSMOKER NEVER SMOKER HIV / HEP-C SCREENING HIV TEST OFFERED TO PATIENT:YES DATE OFFERED:08/01/2017 TEST ACCEPTED:NO HEP-C TEST OFFERED TO PATIENT:NO REASON:PATIENT DECLINED BROCHURE PROVIDED TO PATIENTYES OTHERS AT HOME: SIBLING, IN-LAW(S). EDUCATION LEVEL OF EDUCATION:COLLEGE DIET: NO MSG ,GLUTEN FREE. LANGUAGE LANGUAGES SPOKEN:AFGHAN DOMESTIC VIOLENCE DO YOU FEEL SAFE IN YOUR ENVIRONMENT?YES NEW PATIENT PAIN DIARY TODAY'S VISITNOTES 10/31/2019 PATIENT DESCRIBES PAIN :ACHING, HAVE IT ALL THE TIME, THROBBING, SHOOTING FROM 0-10, WHAT LEVEL IS YOUR PAIN TODAY?10 RECREATIONAL DRUG USE DRUG USE?NO EXERCISE: NONE. LEARNING BARRIERS / SPECIAL NEEDS BARRIERS TO LEARNING?NO HEARING IMPAIRED?NO VISION IMPAIRED?NO COGNITIVELY IMPAIRED?NO READINESS TO LEARN?YES LEARNING PREFERENCES?YES :DEMONSTRATION/VERBAL INSTRUCTION LEARNING CAPABILITIES PRESENT?YES EMOTIONAL BARRIERS?NO SPECIAL DEVICES?NO SHEAR HELPER NEEDED?NO PAIN CLINIC PFS, CLERGY, PUBLIC HEALTH REFERRALS HAS THE PATIENT BEEN EDUCATED REGARDING HIS/HER PLAN OF CARE?YES HAS THE PATIENT BEEN EDUCATED REGARDING PAIN, THE RISK FOR PAIN, THE IMPORTANCE OF EFFECTIVE PAIN MANAGEMENT, AND THE PAIN ASSESSMENT PROCESS?YES LATEX QUESTIONNAIRE LATEX ALLERGY : HAVE YOU EVER DEVELOPED ANY TYPE OF REACTION AFTER HANDLING LATEX PRODUCTS SUCH RUBBER GLOVES, CONDOMS, DIAPHRAGMS, BALLOONS, SOCKS, OR UNDERWEAR?YES - PLEASE INDICATE :OTHER (DOCUMENT IN NOTES) SOME BANDAIDS LATEX ALLERGY : HAVE YOU EVER DEVELOPED ANY TYPE OF REACTION DURING OR AFTER DENTAL APPOINTMENT, VAGINAL/RECTAL EXAMINATION, SURGICAL PROCEDURE, OR ANY OTHER EXPOSURE?NO LATEX RISK : HAVE YOU EVER HAD ANY DIFFICULTY BREATHING OR HIVES AFTER EATING OR HANDLING ANY FRUITS, OR VEGETABLES; SUCH KIWI, BANANAS, STONE FRUITS, OR CHESTNUTSNO LATEX RISK : DO YOU HAVE A PREVIOUS PERSONAL HISTORY OF MORE THAN NINE SURGERIES, SPINA BIFIDA, OR REPEATED CATHERIZATIONS? NO LATEX RISK : ARE YOU FREQUENTLY EXPOSED TO LATEX PRODUCTS IN YOUR OCCUPATION?NO DATE ASKED : 10/14/2019 CAFFEINE CAFFEINE USE?NO ADVANCE DIRECTIVE ADVANCE DIRECTIVE DISCUSSED WITH PATIENT:YES HAS HCP- MALGORZATA VELASCO [phone] CONGREGATION [id number] NONE OTHER MARITAL STATUS: SINGLE. ALCOHOL SCREENING DID YOU HAVE A DRINK CONTAINING ALCOHOL IN THE PAST YEAR?NO POINTS0 INTERPRETATIONNEGATIVE OCCUPATION: UNEMPLOYED. SEXUAL HX HAD SEX IN THE LAST 12 MONTHS (VAGINAL, ORAL, OR ANAL)?NO HAVE YOU EVER HAD AN STD?NO HOSPITALIZATION/MAJOR DIAGNOSTIC PROCEDURE ABOVE SURGERIES REVIEW OF SYSTEMS REVIEWED BY: PROVIDER: STARLA HURTADO . CONSTITUTIONAL: ANY CHANGE IN YOUR MEDICAL CONDITION? NO . CHILLS NO . FEVER NO . INFECTION: DO YOU HAVE NEW INFECTIONS? NO . DO YOU HAVE HISTORY OF MRSA? NO . MUSCULOSKELETAL: ANY NEW PATTERNS OF PAIN OR NUMBNESS? NO . GASTROENTEROLOGY: ANY NEW CHANGE IN BOWEL CONTROL? NO . GENITOURINARY: ANY NEW CHANGE IN BLADDER CONTROL? NO . IS THERE A CHANCE YOU COULD BE ? NO . HEMATOLOGY/LYMPH: DO YOU TAKE ANY BLOOD THINNERS? (FOR EXAMPLE- COUMADIN, PLAVIX, AGGRENOX, PLATEL, PRADAXA, OR XARELTO) NO . WHEN WAS YOUR LAST DOSE? DATE: TIME: . NEUROLOGY: HAVE YOU FALLEN IN THE PAST 12 MONTHS? NO . ANY NEW EXTREMITY NUMBNESS OR WEAKNESS? NO . CARDIOLOGY: DO YOU HAVE A PACEMAKER OR DEFIBRILLATOR? NO . RESPIRATORY: HAVE YOU BEEN SICK IN THE PAST WEEK? NO . FEVER NO . FLU LIKE SYMPTOMS? NO . COUGH NO . INTEGUMENTARY: DO YOU HAVE ANY RASHES OR OPEN SORES? NO . ALLERGIC/IMMUNO: ARE YOU ALLERGIC TO IV DYE? NO . ANY NEW ALLERGIES? NO . PSYCHIATRIC: DO YOU HAVE THOUGHTS OF HURTING YOURSELF OR SOMEONE ELSE? NO . ARE YOU ABUSED, NEGLECTED, OR IN AN UNSAFE ENVIRONMENT? NO . ENDOCRINOLOGY: ARE YOU DIABETIC? NO . OTHER: DO YOU NEED ANY PRESCRIPTIONS? NO . IF YES, PLEASE LIST: ____ . ANY NEW PROBLEMS WITH YOUR MEDICATIONS? NO . WHEN DID YOU LAST EAT? ____ . WHEN DID YOU LAST DRINK? ____ . WHAT DID YOU LAST DRINK? ____ . NAME OF PERSON DRIVING YOU HOME? ____ . DO YOU HAVE ANY OTHER QUESTIONS OR CONCERNS NO . VITAL SIGNS WT 212.0 LBS, HT 60 IN, BMI 41.40 INDEX, BP 130/89 MM HG, HR 96 /MIN, RR 18 /MIN, TEMP 97.7 F, OXYGEN SAT % 97%, SAFE IN ENV? (Y/N) YES, NA INITIALS AW 0925, REVIEWED BY: CHA. EXAMINATION GENERAL EXAMINATION: GENERAL AWAKE,ALERT ,PLEAASANT . PSYCH AFFECT NORMAL . LUNGS: LUNG QUINTERO ARE CLEAR TO AUSCULTATION BILATERALLY. GOOD MOVEMENT OF AIR . HEART: S1, S2 IN A REGULAR RATE AND RHYTHM. NO SIGNIFICANT MURMURS, RUBS OR GALLOPS NOTED . MUSCULOSKELETAL: MUSCLE STRENGTH TESTING 4/5 BILATERAL LOWER EXTREMITIES. LUMBAR: TRIGGER POINTS:, ELICITED WITH PALPATION OVER RIGHT LUMBAR PARAVERTEBRAL MUSCLES AND RESTRICTION OF ROM IN THIS AREA IS NOTED.. DIAGNOSTIC TESTS REVIEWEDMRI LS-SPINE 2019 . ASSESSMENTS MYALGIA, OTHER SITE - M79.18 (PRIMARY) TREATMENT MYALGIA, OTHER SITE INCREASE LYRICA CAPSULE, 200 MG, 1 CAPSULE, ORALLY, Q8H TID MDD3, 30 DAYS, 90, REFILLS 2 CONTINUE OXYCODONE HCL TABLET, 10 MG, 1 TABLET, ORALLY, Q12H BID MDD2 START CYCLOBENZAPRINE HCL TABLET, 10 MG, 1/2-1 TAB, ORALLY, BID FOR SEVERE MUSCLE SPASM, 30 DAY(S), 45, REFILLS 1 NOTES: TELEPHONE VISIT WITH DR. NINO IN 2 WEEKS TO CONSIDER TRIGGER POINT INJECTION RIGHT LOW BACK IF NO IMPROVEMENT WITH MEDICATION CHANGES MADE TODAY. FOLLOW-UP IS SCHEDULED IN 6 WEEKS WITH NURSE PRACTITIONER., ISTOP REGISTRY REVIEWED AND DEMONSTRATES COMPLLIANCE. BRINGS IN MEDICATIONS WHICH IS APPROPRIATE FOR WHAT WAS DISPENSED. RECENT URINE TOXICOLOGY REVIEWED. NO UNAUTHORIZED MEDICATIONS. NO ILLICIT SUBSTANCES AND PRESCRIBED MEDICATIONS WERE PRESENT. , RISKS OF NARCOTIC/OPIOD MEDICATIONS INCLUDES BUT IS NOT LIMITED TO RISK OF DEPENDANCE/DEVELOPMENT OF ADDICTION, MOOD DISTURBANCE AND DEPRESSION, OSTEOPOROSIS, HORMONAL AND LABIDAL CHANGES, RESPIRATORY DEPRESSION AND . PATIENT IS ADVISED NOT TO DRIVE OR DRINK ALCOHOL WHILE ON THESE MEDICATIONS. PROCEDURE CODES FA211 ESTABILISHED PATIENT [facility] CHARGE DISPOSITION & COMMUNICATION FOLLOW UP 2 WKS TELEMED/PHONE DR Aldana/[id number] CHA (REASON: NECK/HEAD/LBP) ELECTRONICALLY SIGNED BY BRYANT MIXON ON 10/31/2019 AT 03:04 PM EDT DISCLAIMER : THIS IS A VISIT SUMMARY EXTRACTED [facility]. IT IS NOT A COPY OF THE [facility] PROGRESS NOTE. JOHNNIE
== END ==
LOC: M PAIN 09:45
PROVIDERS: ATTEND Nurse Practitioner Family
DX: M79.18 Myalgia, other site (principal); Z79.899 Other long term (current) drug therapy; Z88.0 Allergy status to penicillin; Z88.5 Allergy status to narcotic agent; Z88.8 Allergy status to other drugs, medicaments and biological substances

== ENCOUNTER → 2019-11-10 | Outpatient (CLI) | payer MEDICARE, MEDICAID ==
[~2019-11-10] MED LIST changes: +VITA-243 PO; -VITA500T PO
--- NOTE | 2019-11-14 00:19 | ECWPNPC ---
PATIENT NAME: DEEDEE SHEARER : 1975 GENDER: FEMALE VISIT DATE: 11/10/2019 DISCHARGE DATE: 11/10/19 1305 VISIT LOCKED DATE TIME: PHYSICIAN: DAVID NINO MD RESOURCE: DAVID NINO MD REASON FOR APPOINTMENT 1. POSSIBLE TPI HISTORY OF PRESENT ILLNESS HISTORY OF PRESENT ILLNESS: PAIN THE PATIENT DESCRIBES THE PAIN... PERMISSION FROM PATIENT WAS RECEIVED TO DO TELEPHONE OFFICE VISIT. 44 YEAR OLD FEMALE PATIENT WITH A HISTORY OF CHRONIC LOW BACK PAIN. THE PATIENT DESCRIBES THE PAIN ACHING, HAVE IT ALL THE TIME, SHARP, STABBING, TENDER, SORE, SHOOTING WITH A PAIN SCORE OF 8-10/10 DEPENDING ON PHYSICAL ACTIVITY. THE PATIENT STATES SHE HAS BEEN SUFFERING FROM HER PAIN FOR MANY YEARS AND IT IS AFFECTING HER ABILITY TO GET OUT OF BED OR WALK FOR LONG PERIODS DUE TO THE SEVERE PAIN. THE PATIENT SAYS SHE IS CURRENTLY USING ALEVE NEEDED AND OXYCODONE 10 MG TWICE DAILY TO AID IN PAIN RELIEF, AND HAS TRIED CYCLOBENZAPRINE, CYMBALTA, TOPAMAX, AND LYRICA, BUT HER PAIN PERSISTS. THE PATIENT SAYS THE MEDICATION IS HELPING TO MANAGE HER PAIN AND SHE UNDERSTANDS PROCEDURES ARE CURRENTLY ON HOLD DUE TO THE CURRENT COVID SITUATION. THE PATIENT DENIES UNEXPLAINED WEIGHT LOSS, FEVER, CHILLS, NEW CHANGES IN HER URINARY OR BOWEL CONTROL. FALL RISK SCREENING: SCREENING :NO FALLS REPORTED IN THE LAST YEAR CURRENT MEDICATIONS TAKING PROMETHAZINE HCL 25 MG TABLET 1 TABLET NEEDED ORALLY EVERY 12 HRS PRN NAUSEA TAKING ALAVERT ALLERGY/SINUS 5-120 MG TABLET EXTENDED RELEASE 12 HOUR 1 TABLET NEEDED ORALLY EVERY 12 HRS TAKING ATORVASTATIN CALCIUM 40 MG TABLET 1 TABLET ORALLY DAILY TAKING ALBUTEROL SULFATE HFA 108 (90 BASE) MCG/ACT AEROSOL SOLUTION 2 PUFFS NEEDED INHALATION EVERY 4 HRS PRN SOB/WHEEZING, NOTES: NONE RECENT TAKING VITAMIN C ER 1000 MG TABLET EXTENDED RELEASE 1 TABLET ORALLY ONCE A DAY TAKING VERAPAMIL HCL ER 180 MG TABLET EXTENDED RELEASE 1 TABLET ORALLY TWICE A DAY TAKING PANTOPRAZOLE SODIUM 40 MG TABLET DELAYED RELEASE 1 TABLET ORALLY BID TAKING E-Z SPACER 1 SPACER ICD10: J44.9 DIRECTED WITH PRN ALBUTEROL INHALER TAKING SENOKOT S THREE TIMES A DAY TAKING VITAMIN D3 2000 UNIT CAPSULE 2 CAPSULES ORALLY ONCE A DAY TAKING FERROUS SULFATE 325 MG CAPSULE 1300 MG ORALLY DAILY, NOTES: PATIENT STATES 1300 MG DAILY AT THIS TIME TAKING OXYBUTYNIN CHLORIDE ER 5 MG TABLET EXTENDED RELEASE 24 HOUR 1 TABLET ORALLY ONCE A DAY TAKING PROCTOZONE-HC 2.5 % CREAM 1 APPLICATION TO AFFECTED AREA RECTAL TWICE A DAY NEEDED, NOTES: NONE RECENT TAKING SUMATRIPTAN SUCCINATE 100 MG TABLET 1 TABLET AT LEAST 2 HOURS BETWEEN DOSES NEEDED ORALLY TWICE A DAY, NOTES: NONE RECENT TAKING MOBIC 15 MG TABLET 1 TABLET ORALLY ONCE A DAY NEEDED, NOTES: NONE RECENT TAKING CYCLOBENZAPRINE HCL 10 MG TABLET 1/2-1 TAB ORALLY BID FOR SEVERE MUSCLE SPASM TAKING OXYCODONE HCL 10 MG TABLET 1 TABLET ORALLY Q12H BID MDD2 NOT-TAKING TIZANIDINE HCL 4 MG TABLET TAKE 1 TABLET BY MOUTH TWICE DAILY NEEDED. DO NOT TAKE IF TAKING BACLOFEN ON SAME DAY. , NOTES: NONE RECENT NOT-TAKING SPIRONOLACTONE 25 MG TABLET 1 TABLET ORALLY ONCE A DAY NOT-TAKING EMGALITY 120 MG/ML SOLUTION AUTO-INJECTOR DIRECTED SUBCUTANEOUS NOT-TAKING LYRICA 200 MG CAPSULE 1 CAPSULE ORALLY Q8H TID MDD3 NOT-TAKING MAGNESIUM CHLORIDE - POWDER 2 MUG=[id number] (4 TSPS) ORALLY TWICE DAILY NEEDED, NOTES: NONE RECENT NOT-TAKING ALEVE 220 MG TABLET 1 TABLET WITH FOOD OR MILK NEEDED ORALLY EVERY 12 HRS, NOTES: NONE RECENT NOT-TAKING AJOVY 225 MG/1.5ML SOLUTION PREFILLED SYRINGE 1.5 ML SUBCUTANEOUS MONTHLY NOT-TAKING RIZATRIPTAN BENZOATE 10 MG TABLET 1 TABLET ORALLY ONCE A DAY NOT-TAKING AIMOVIG 70 MG/ML SOLUTION AUTO-INJECTOR DIRECTED SUBCUTANEOUS MEDICATION LIST REVIEWED AND RECONCILED WITH THE PATIENT PAST MEDICAL HISTORY GERD DDD, HERNIATED DISCS, SPINE ARTHRITIS COPD PER PATIENT CHRONIC MIGRAINES HX RIGHT ANKLE FX, LEFT FOOT FX, COCCYX FX R KNEE SCAR TISSUE OBESITY PCOS, HIRSUTISM HYPERLIPIDEMIA RESTLESS LEGS SYNDROME IRON DEFICIENCY ANEMIA CHRONIC FATIGUE IRREGULAR HEAVY MENSES ENDOMETRIOSIS INTERSTITIAL CYSTITIS REPORTED HISTORY OF COLONIC POLYPS ELEVATED 24 HR CORTISOL- SAW DR. GOMEZ, NO ADRENAL INSUFFICIENCY OCCIPITAL NEURALGIA CHRONIC PAIN DUE TO TRAUMA MYALGIA CONSTIPATION TUMOR UTERUS CHRONIC BACK AND NECK PAIN ALLERGIES TYLENOL: FEVER - ALLERGY ZANTAC: NUMBNESS ANDTINGLING IN HANDS AND SWOLLEN LIPS - ALLERGY HYDROCODONE-ACETAMINOPHEN: FEVER ,NAUSEA - ALLERGY PENICILLIN (FOR ALLERGIES USE ONLY): YEAST INFECTION - SIDE EFFECTS VENOFER: JOINT SWELLING - ALLERGY BANDAIDS/ADHESIVES: RASH - ALLERGY SURGICAL HISTORY TONSILLECTOMY 1990 APPENDECTOMY 1977 R KNEE FX 2002 R ANKLE FX 2016 DIAGNOSTIC LAPAROSCOPY WITH REMOVAL OF SCAR TISSUE 2011 COLONOSCOPY/ ENDOSCOPY 09/26/2018 RIGHT ANKLE HARDWARE REMOVED 10/2018 TOOTH EXTRACTION 1998 GALLBLADDER REMOVAL 04/2019 UTERINE TUMOR REMOVAL 04/2019 FAMILY HISTORY FATHER: , PANCREATITIS MOTHER: , EMPHYSEMA, ASTHMA SIBLINGS: ALIVE, SISTER JAYLA, STAGE 3A LUNG CANCER, SISTER CRISTAL HAS LEUKEMIA, SISTER YEIMI IS FROM UTERINE WITH METS TO LUNGS, LIVER, KIDNEYS; SISTER SUNDAY HAD CERVICAL CA; BROTHER ALYSSA HAS PROSTATE CA 3 BROTHER(S) , 7 SISTER(S) - HEALTHY. SOCIAL HISTORY GENERAL: TOBACCO USE ARE YOU A:NONSMOKER NEVER SMOKER LATEX QUESTIONNAIRE LATEX ALLERGY : HAVE YOU EVER DEVELOPED ANY TYPE OF REACTION AFTER HANDLING LATEX PRODUCTS SUCH RUBBER GLOVES, CONDOMS, DIAPHRAGMS, BALLOONS, SOCKS, OR UNDERWEAR?YES - PLEASE INDICATE :OTHER (DOCUMENT IN NOTES) SOME BANDAIDS LATEX ALLERGY : HAVE YOU EVER DEVELOPED ANY TYPE OF REACTION DURING OR AFTER DENTAL APPOINTMENT, VAGINAL/RECTAL EXAMINATION, SURGICAL PROCEDURE, OR ANY OTHER EXPOSURE?NO LATEX RISK : HAVE YOU EVER HAD ANY DIFFICULTY BREATHING OR HIVES AFTER EATING OR HANDLING ANY FRUITS, OR VEGETABLES; SUCH KIWI, BANANAS, STONE FRUITS, OR CHESTNUTSNO LATEX RISK : DO YOU HAVE A PREVIOUS PERSONAL HISTORY OF MORE THAN NINE SURGERIES, SPINA BIFIDA, OR REPEATED CATHERIZATIONS? NO LATEX RISK : ARE YOU FREQUENTLY EXPOSED TO LATEX PRODUCTS IN YOUR OCCUPATION?NO DATE ASKED : 11/10/2019 ALCOHOL SCREENING DID YOU HAVE A DRINK CONTAINING ALCOHOL IN THE PAST YEAR?NO POINTS0 INTERPRETATIONNEGATIVE RECREATIONAL DRUG USE DRUG USE?NO CAFFEINE CAFFEINE USE?NO SEXUAL HX HAD SEX IN THE LAST 12 MONTHS (VAGINAL, ORAL, OR ANAL)?NO HAVE YOU EVER HAD AN STD?NO HIV / HEP-C SCREENING HIV TEST OFFERED TO PATIENT:YES DATE OFFERED:08/01/2017 TEST ACCEPTED:NO HEP-C TEST OFFERED TO PATIENT:NO REASON:PATIENT DECLINED BROCHURE PROVIDED TO PATIENTYES [employer] [id number] NONE OTHER LANGUAGE LANGUAGES SPOKEN:GERMAN EDUCATION LEVEL OF EDUCATION:COLLEGE LEARNING BARRIERS / SPECIAL NEEDS BARRIERS TO LEARNING?NO HEARING IMPAIRED?NO VISION IMPAIRED?NO COGNITIVELY IMPAIRED?NO READINESS TO LEARN?YES LEARNING PREFERENCES?YES :DEMONSTRATION/VERBAL INSTRUCTION LEARNING CAPABILITIES PRESENT?YES EMOTIONAL BARRIERS?NO SPECIAL DEVICES?NO LEGAL SECRETARY NEEDED?NO DOMESTIC VIOLENCE DO YOU FEEL SAFE IN YOUR ENVIRONMENT?YES OCCUPATION: UNEMPLOYED. DIET: NO MSG ,GLUTEN FREE. EXERCISE: NONE. MARITAL STATUS: SINGLE. OTHERS AT HOME: SIBLING, IN-LAW(S). NEW PATIENT PAIN DIARY TODAY'S VISITNOTES 11/10/2019 PATIENT DESCRIBES PAIN :ACHING, HAVE IT ALL THE TIME, SHARP, STABBING, TENDER, SORE, SHOOTING FROM 0-10, WHAT LEVEL IS YOUR PAIN TODAY?10 IS THERE A CHANCE YOU COULD BE ?NO HAVE YOU BEEN SICK IN THE LAST WEEK (COLD, COUGH, FEVER, FLU, ETC)NO DO YOU TAKE ANY BLOOD THINNERS?NO DO YOU HAVE ANY RASHES OR OPEN SORES?NO ANY CHANGE IN BOWEL OR BLADDER CONTROL?NO ARE YOU ALLERGIC TO SHELLFISH OR IV DYE?NO ARE YOU DIABETIC?NO DO YOU HAVE A PACEMAKER OR DEFIBRILLATOR?YES ANY NEW PROBLEMS WITH MEDICINES OR NEW ALLERGIESNO ANY NEW PATTERNS OF PAIN OR NUMBNESS?NO ANY CHANGE IN YOUR MEDICAL CONDITION?NO HAVE YOU FALLEN IN THE LAST 6 MONTHS?NO DO YOU USE ANY TYPE OF TOBACCO (SMOKE, SMOKELESS, CHEW, ETC.)NO ARE YOU ABUSED, NEGLECTED, OR IN AN UNSAFE ENVIRONMENT?NO DO YOU HAVE THOUGHTS OF HURTING YOURSELF OR SOMEONE ELSE?NO DO YOU NEED ANY PRESCRIPTIONS?NO DO YOU HAVE ANY OTHER QUESTIONS OR CONCERNS?NO INTENSITY SCALE REVIEWEDNUMBER PAIN CLINIC PFS, CLERGY, PUBLIC HEALTH REFERRALS WAS THE PROVIDER NOTIFIED OF ANY PERTINENT INFO?YES HAS THE PATIENT BEEN EDUCATED REGARDING HIS/HER PLAN OF CARE?YES HAS THE PATIENT BEEN EDUCATED REGARDING PAIN, THE RISK FOR PAIN, THE IMPORTANCE OF EFFECTIVE PAIN MANAGEMENT, AND THE PAIN ASSESSMENT PROCESS?YES ADVANCE DIRECTIVE ADVANCE DIRECTIVE DISCUSSED WITH PATIENT:YES HAS HCP- MALGORZATA VELASCO [phone] HOSPITALIZATION/MAJOR DIAGNOSTIC PROCEDURE ABOVE SURGERIES REVIEW OF SYSTEMS REVIEWED BY: PROVIDER: DAVID NINO MD . CONSTITUTIONAL: ANY CHANGE IN YOUR MEDICAL CONDITION? NO . CHILLS NO . FEVER NO . INFECTION: DO YOU HAVE NEW INFECTIONS? NO . DO YOU HAVE HISTORY OF MRSA? NO . MUSCULOSKELETAL: ANY NEW PATTERNS OF PAIN OR NUMBNESS? NO . GASTROENTEROLOGY: ANY NEW CHANGE IN BOWEL CONTROL? NO . GENITOURINARY: ANY NEW CHANGE IN BLADDER CONTROL? NO . IS THERE A CHANCE YOU COULD BE ? NO . HEMATOLOGY/LYMPH: DO YOU TAKE ANY BLOOD THINNERS? (FOR EXAMPLE- COUMADIN, PLAVIX, AGGRENOX, PLATEL, PRADAXA, OR XARELTO) NO . WHEN WAS YOUR LAST DOSE? DATE: TIME: . NEUROLOGY: HAVE YOU FALLEN IN THE PAST 12 MONTHS? NO . ANY NEW EXTREMITY NUMBNESS OR WEAKNESS? NO . CARDIOLOGY: DO YOU HAVE A PACEMAKER OR DEFIBRILLATOR? NO . RESPIRATORY: HAVE YOU BEEN SICK IN THE PAST WEEK? NO . FEVER NO . FLU LIKE SYMPTOMS? NO . COUGH NO . INTEGUMENTARY: DO YOU HAVE ANY RASHES OR OPEN SORES? NO . ALLERGIC/IMMUNO: ARE YOU ALLERGIC TO IV DYE? NO . ANY NEW ALLERGIES? NO . PSYCHIATRIC: DO YOU HAVE THOUGHTS OF HURTING YOURSELF OR SOMEONE ELSE? NO . ARE YOU ABUSED, NEGLECTED, OR IN AN UNSAFE ENVIRONMENT? NO . ENDOCRINOLOGY: ARE YOU DIABETIC? NO . OTHER: DO YOU NEED ANY PRESCRIPTIONS? NO . IF YES, PLEASE LIST: ____ . ANY NEW PROBLEMS WITH YOUR MEDICATIONS? NO . WHEN DID YOU LAST EAT? ____ . WHEN DID YOU LAST DRINK? ____ . WHAT DID YOU LAST DRINK? ____ . NAME OF PERSON DRIVING YOU HOME? ____ . DO YOU HAVE ANY OTHER QUESTIONS OR CONCERNS NO . EXAMINATION GENERAL EXAMINATION: TELEPHONE ENCOUNTER. PATIENT IS ALERT O X 3 AND COOPERATIVE. MRI OF THE LUMBAR SPINE DONE ON 09/18/2018 SHOWS FACET ARTHROPATHY CHANGES. ASSESSMENTS LOW BACK PAIN - M54.5 (PRIMARY) OTHER CHRONIC PAIN - G89.29 MYALGIA, OTHER SITE - M79.18 TREATMENT LOW BACK PAIN CLINICAL NOTES: WE DISCUSSED SEVERAL ISSUES WITH MS. SHEARER'S PAIN MANAGEMENT CASE. TRIGGER POINT INJECTIONS HAS HELPED IN THE PATIENT IN THE PAST. THE PATIENT UNDERSTANDS THAT PROCEDURES ARE BEING POSTPONED DUE TO OUR CURRENT SITUATION WITH COVID-19 AND IS WILLING TO WAIT UNTIL WE CAN RESUME. WE DISCUSSED THE CONCERNS OF STEROIDS CAUSING IMMUNOSUPPRESSION SHORT-TERM. I WILL START THE PATIENT ON MORPHINE 15 MG 1 TABLET NEEDED FOR PAIN FOR ONE WEEK, AND THE PATIENT WILL CONTINUE USING 1 TABLET OF OXYCODONE AT NIGHT. ISTOP # [id number] WAS REVIEWED. I WILL CALL THE PATIENT NEXT SUNDAY TO SEE HOW THE MEDICATION IS HELPING WITH HER PAIN. I MAY CONSIDER PERFORMING A TRIGGER POINT INJECTION WITHOUT STEROIDS IF THERE IS NO PAIN RELIEF WITH HER NEW MEDICATION REGIMEN. THE TOTAL TIME FOR TODAY'S TELEMEDICINE VISIT WAS 41 MINUTES. INSTRUCTIONS WERE GIVEN, QUESTIONS WERE ANSWERED, PATIENT REPORTS UNDERSTANDING AND AGREES WITH THE PLAN. I, DOUGLAS PEPPER, DOCUMENTED THE ABOVE INFORMATION ACTING A SCRIBE FOR DR. NINO. I HAVE REVIEWED THE ABOVE DOCUMENT, WRITTEN BY DOUGLAS PEPPER SCRIBYamile AND I VERIFY THAT IT IS ACCURATE. . OTHERS START MORPHINE SULFATE TABLET, 15 MG, 1 TABLET NEEDED, ORALLY FOR PAIN, DAILY MDD1, 7 DAY(S), 7, REFILLS 0 NOTES: PT GIVEN VERBAL PERMISSION TO CONDUCT VISIT VIA PHONE TODAY, UNABLE TO OBTAIN VITAL SIGNS DUE TO PHONE VISIT, PT ACKNOWLEDGES THAT RN, MD NINO AND SCRIBE WITH BE CONDUCTING PHONE VISIT. DS. PREVENTIVE MEDICINE PAIN CLINIC TEACHING: THE PATIENT HAS BEEN EDUCATED REGARDING HIS/HER PLAN OF CARE : EDUCATED PT REGARDING PHONE VISIT FOR PAIN MANAGEMENT, PT ACKNOWLDEGED UNDERSTANDING, DS DISPOSITION & COMMUNICATION FOLLOW UP 1 WEEK (REASON: DR Aldana WILL CALL PT ON SUNDAY AGAIN (NOT TELEMEDICINE)/KEEP NEXT F/UP) ELECTRONICALLY SIGNED BY DAVID NINO MD, MD ON 11/13/2019 AT 01:56 PM EDT DISCLAIMER : THIS IS A VISIT SUMMARY EXTRACTED FROM THE [employer] CHART. IT IS NOT A COPY OF THE [employer] PROGRESS NOTE. JOHNNIE
== END ==
LOC: M PAIN 11:45
PROVIDERS: ATTEND Anesthesiology
DX: M54.5 Low back pain (principal); G89.29 Other chronic pain; M79.18 Myalgia, other site; J44.9 Chronic obstructive pulmonary disease, unspecified; Z79.891 Long term (current) use of opiate analgesic; Z79.899 Other long term (current) drug therapy; Z88.0 Allergy status to penicillin; Z88.5 Allergy status to narcotic agent; Z88.8 Allergy status to other drugs, medicaments and biological substances; Z91.048 Other nonmedicinal substance allergy status

== ENCOUNTER → 2019-11-24 | Outpatient (CLI) | payer MEDICARE, MEDICAID ==
[~2019-11-24] MED LIST changes: +BUPIVACAINE HCL 0.25% 10ML VIAL As Ordered ONE; +BUPIVACAINE HCL 0.25% 30ML VIAL As Ordered ONE; +VITAD1000T PO; +diazePAM 5 MG TAB As Ordered ONE; +oxyCODONE 5MG TAB As Ordered ONE
--- NOTE | 2019-11-25 00:07 | ECWPNPC ---
PATIENT NAME: DEEDEE SHEARER : 1975 GENDER: FEMALE VISIT DATE: 11/24/2019 DISCHARGE DATE: 11/24/19 1518 VISIT LOCKED DATE TIME: PHYSICIAN: DAVID NINO MD RESOURCE: DAVID NINO MD REASON FOR APPOINTMENT 1. TPI- WITHOUT STEROIDS- PER HISTORY OF PRESENT ILLNESS HISTORY OF PRESENT ILLNESS: PAIN THE PATIENT DESCRIBES THE PAIN... 44-YEAR-OLD FEMALE PATIENT WITH A HISTORY OF CHRONIC LOW BACK PAIN. THE PATIENT DESCRIBES THE PAIN ACHING AND SEVERE WITH A PAIN SCORE RANGING FROM 6-9/10 DEPENDING ON PHYSICAL ACTIVITY. THE PATIENT HAS RECIEVED TRIGGER POINT INJECTIONS IN THE PAST THAT HAVE HELPED. PATIENT DENIES UNEXPLAINABLE WEIGHT LOSS, FEVER, CHILLS, NEW CHANGES ON HER URINARY OR BOWEL CONTROL. FALL RISK SCREENING: SCREENING :NO FALLS REPORTED IN THE LAST YEAR CURRENT MEDICATIONS TAKING PROMETHAZINE HCL 25 MG TABLET 1 TABLET NEEDED ORALLY EVERY 12 HRS PRN NAUSEA, NOTES: > 1 MONTH TAKING ALAVERT ALLERGY/SINUS 5-120 MG TABLET EXTENDED RELEASE 12 HOUR 1 TABLET NEEDED ORALLY EVERY 12 HRS, NOTES: > 1 MONTH TAKING ATORVASTATIN CALCIUM 40 MG TABLET 1 TABLET ORALLY DAILY, NOTES: 11/23/192099 TAKING ALBUTEROL SULFATE HFA 108 (90 BASE) MCG/ACT AEROSOL SOLUTION 2 PUFFS NEEDED INHALATION EVERY 4 HRS PRN SOB/WHEEZING, NOTES: NONE RECENT TAKING VITAMIN C ER 1000 MG TABLET EXTENDED RELEASE 1 TABLET ORALLY ONCE A DAY, NOTES: > 1 MONTH TAKING VERAPAMIL HCL ER 180 MG TABLET EXTENDED RELEASE 1 TABLET ORALLY TWICE A DAY, NOTES: 11/24/19599 TAKING PANTOPRAZOLE SODIUM 40 MG TABLET DELAYED RELEASE 1 TABLET ORALLY BID, NOTES: 11/24/19599 TAKING E-Z SPACER 1 SPACER ICD10: J44.9 DIRECTED WITH PRN ALBUTEROL INHALER TAKING SENOKOT S THREE TIMES A DAY, NOTES: 11/22/19 TAKING VITAMIN D3 2000 UNIT CAPSULE 2 CAPSULES ORALLY ONCE A DAY, NOTES: 11/24/19599 TAKING FERROUS SULFATE 325 MG CAPSULE 1300 MG ORALLY DAILY, NOTES: > 1 WEEK TAKING OXYBUTYNIN CHLORIDE ER 5 MG TABLET EXTENDED RELEASE 24 HOUR 1 TABLET ORALLY ONCE A DAY, NOTES: 11/23/191999 TAKING PROCTOZONE-HC 2.5 % CREAM 1 APPLICATION TO AFFECTED AREA RECTAL TWICE A DAY NEEDED, NOTES: NONE RECENT TAKING SUMATRIPTAN SUCCINATE 100 MG TABLET 1 TABLET AT LEAST 2 HOURS BETWEEN DOSES NEEDED ORALLY TWICE A DAY, NOTES: NONE RECENT TAKING MOBIC 15 MG TABLET 1 TABLET ORALLY ONCE A DAY NEEDED, NOTES: > 1 WEEK TAKING CYCLOBENZAPRINE HCL 10 MG TABLET 1/2-1 TAB ORALLY BID FOR SEVERE MUSCLE SPASM, NOTES: 11/23/20191999 TAKING OXYCODONE HCL 10 MG TABLET 1 TABLET ORALLY Q12H BID MDD2, NOTES: 11/23/191999 TAKING MORPHINE SULFATE 15 MG TABLET 1 TABLET NEEDED ORALLY FOR PAIN DAILY MDD1, NOTES: 1 WEEK AGO TAKING SPIRONOLACTONE 25 MG TABLET 1 TABLET ORALLY ONCE A DAY, NOTES: 11/23/191999 NOT-TAKING TIZANIDINE HCL 4 MG TABLET TAKE 1 TABLET BY MOUTH TWICE DAILY NEEDED. DO NOT TAKE IF TAKING BACLOFEN ON SAME DAY. , NOTES: NONE RECENT NOT-TAKING EMGALITY 120 MG/ML SOLUTION AUTO-INJECTOR DIRECTED SUBCUTANEOUS NOT-TAKING LYRICA 200 MG CAPSULE 1 CAPSULE ORALLY Q8H TID MDD3 NOT-TAKING MAGNESIUM CHLORIDE - POWDER 2 MJB=585OU (4 TSPS) ORALLY TWICE DAILY NEEDED, NOTES: NONE RECENT NOT-TAKING ALEVE 220 MG TABLET 1 TABLET WITH FOOD OR MILK NEEDED ORALLY EVERY 12 HRS, NOTES: NONE RECENT NOT-TAKING AJOVY 225 MG/1.5ML SOLUTION PREFILLED SYRINGE 1.5 ML SUBCUTANEOUS MONTHLY NOT-TAKING RIZATRIPTAN BENZOATE 10 MG TABLET 1 TABLET ORALLY ONCE A DAY NOT-TAKING AIMOVIG 70 MG/ML SOLUTION AUTO-INJECTOR DIRECTED SUBCUTANEOUS MEDICATION LIST REVIEWED AND RECONCILED WITH THE PATIENT PAST MEDICAL HISTORY GERD DDD, HERNIATED DISCS, SPINE ARTHRITIS COPD PER PATIENT CHRONIC MIGRAINES HX RIGHT ANKLE FX, LEFT FOOT FX, COCCYX FX R KNEE SCAR TISSUE OBESITY PCOS, HIRSUTISM HYPERLIPIDEMIA RESTLESS LEGS SYNDROME IRON DEFICIENCY ANEMIA CHRONIC FATIGUE IRREGULAR HEAVY MENSES ENDOMETRIOSIS INTERSTITIAL CYSTITIS REPORTED HISTORY OF COLONIC POLYPS ELEVATED 24 HR CORTISOL- SAW DR. GOMEZ, NO ADRENAL INSUFFICIENCY OCCIPITAL NEURALGIA CHRONIC PAIN DUE TO TRAUMA MYALGIA CONSTIPATION TUMOR UTERUS CHRONIC BACK AND NECK PAIN ALLERGIES TYLENOL: FEVER - ALLERGY ZANTAC: NUMBNESS ANDTINGLING IN HANDS AND SWOLLEN LIPS - ALLERGY HYDROCODONE-ACETAMINOPHEN: FEVER ,NAUSEA - ALLERGY PENICILLIN (FOR ALLERGIES USE ONLY): YEAST INFECTION - SIDE EFFECTS VENOFER: JOINT SWELLING - ALLERGY BANDAIDS/ADHESIVES: RASH - ALLERGY SURGICAL HISTORY TONSILLECTOMY 1990 APPENDECTOMY 1977 R KNEE FX 2002 R ANKLE FX 2016 DIAGNOSTIC LAPAROSCOPY WITH REMOVAL OF SCAR TISSUE 2011 COLONOSCOPY/ ENDOSCOPY 09/26/2018 RIGHT ANKLE HARDWARE REMOVED 10/2018 TOOTH EXTRACTION 1998 GALLBLADDER REMOVAL 04/2019 UTERINE TUMOR REMOVAL 04/2019 FAMILY HISTORY FATHER: , PANCREATITIS MOTHER: , EMPHYSEMA, ASTHMA SIBLINGS: ALIVE, SISTER JAYLA, STAGE 3A LUNG CANCER, SISTER CRISTAL HAS LEUKEMIA, SISTER YEIMI IS FROM UTERINE WITH METS TO LUNGS, LIVER, KIDNEYS; SISTER SUNDAY HAD CERVICAL CA; BROTHER ALYSSA HAS PROSTATE CA 3 BROTHER(S) , 7 SISTER(S) - HEALTHY. SOCIAL HISTORY GENERAL: TOBACCO USE ARE YOU A:NONSMOKER NEVER SMOKER LATEX QUESTIONNAIRE LATEX ALLERGY : HAVE YOU EVER DEVELOPED ANY TYPE OF REACTION AFTER HANDLING LATEX PRODUCTS SUCH RUBBER GLOVES, CONDOMS, DIAPHRAGMS, BALLOONS, SOCKS, OR UNDERWEAR?YES LATEX ALLERGY : HAVE YOU EVER DEVELOPED ANY TYPE OF REACTION DURING OR AFTER DENTAL APPOINTMENT, VAGINAL/RECTAL EXAMINATION, SURGICAL PROCEDURE, OR ANY OTHER EXPOSURE?NO - PLEASE INDICATE :OTHER (DOCUMENT IN NOTES) SOME BANDAIDS DATE ASKED : 11/10/2019 LATEX RISK : HAVE YOU EVER HAD ANY DIFFICULTY BREATHING OR HIVES AFTER EATING OR HANDLING ANY FRUITS, OR VEGETABLES; SUCH KIWI, BANANAS, STONE FRUITS, OR CHESTNUTSNO LATEX RISK : DO YOU HAVE A PREVIOUS PERSONAL HISTORY OF MORE THAN NINE SURGERIES, SPINA BIFIDA, OR REPEATED CATHERIZATIONS? NO LATEX RISK : ARE YOU FREQUENTLY EXPOSED TO LATEX PRODUCTS IN YOUR OCCUPATION?NO ALCOHOL SCREENING DID YOU HAVE A DRINK CONTAINING ALCOHOL IN THE PAST YEAR?NO POINTS0 INTERPRETATIONNEGATIVE RECREATIONAL DRUG USE DRUG USE?NO CAFFEINE CAFFEINE USE?NO SEXUAL HX HAD SEX IN THE LAST 12 MONTHS (VAGINAL, ORAL, OR ANAL)?NO HAVE YOU EVER HAD AN STD?NO HIV / HEP-C SCREENING HIV TEST OFFERED TO PATIENT:YES DATE OFFERED:08/01/2017 TEST ACCEPTED:NO HEP-C TEST OFFERED TO PATIENT:NO REASON:PATIENT DECLINED BROCHURE PROVIDED TO PATIENTYES RASTAFARI [id number] NONE OTHER LANGUAGE LANGUAGES SPOKEN:UKRAINIAN EDUCATION LEVEL OF EDUCATION:COLLEGE LEARNING BARRIERS / SPECIAL NEEDS BARRIERS TO LEARNING?NO HEARING IMPAIRED?NO VISION IMPAIRED?NO COGNITIVELY IMPAIRED?NO READINESS TO LEARN?YES LEARNING PREFERENCES?YES :DEMONSTRATION/VERBAL INSTRUCTION LEARNING CAPABILITIES PRESENT?YES EMOTIONAL BARRIERS?NO SPECIAL DEVICES?NO DRAINAGE DESIGN COORDINATOR NEEDED?NO DOMESTIC VIOLENCE DO YOU FEEL SAFE IN YOUR ENVIRONMENT?YES OCCUPATION: UNEMPLOYED. DIET: NO MSG ,GLUTEN FREE. EXERCISE: NONE. MARITAL STATUS: SINGLE. OTHERS AT HOME: SIBLING, IN-LAW(S). NEW PATIENT PAIN DIARY TODAY'S VISIT 11/24/2019 PATIENT DESCRIBES PAIN :HAVE IT ALL THE TIME, SHARP FROM 0-10, WHAT LEVEL IS YOUR PAIN TODAY?8 PRECIPITATING FACTORS ACTIVITY MAKES IT WORSE ALLEVIATING FACTORS TRIGGER POINT INJECTIONS HELP PAIN CLINIC PFS, CLERGY, PUBLIC HEALTH REFERRALS WAS THE PROVIDER NOTIFIED OF ANY PERTINENT INFO?YES HAS THE PATIENT BEEN EDUCATED REGARDING HIS/HER PLAN OF CARE?YES HAS THE PATIENT BEEN EDUCATED REGARDING PAIN, THE RISK FOR PAIN, THE IMPORTANCE OF EFFECTIVE PAIN MANAGEMENT, AND THE PAIN ASSESSMENT PROCESS?YES ADVANCE DIRECTIVE ADVANCE DIRECTIVE DISCUSSED WITH PATIENT:YES HAS HCP- MALGORZATA VELASCO [phone] HOSPITALIZATION/MAJOR DIAGNOSTIC PROCEDURE ABOVE SURGERIES REVIEW OF SYSTEMS REVIEWED BY: PROVIDER: DAVID NINO MD . CONSTITUTIONAL: ANY CHANGE IN YOUR MEDICAL CONDITION? NO . CHILLS NO . FEVER NO . INFECTION: DO YOU HAVE NEW INFECTIONS? NO . DO YOU HAVE HISTORY OF MRSA? NO . MUSCULOSKELETAL: ANY NEW PATTERNS OF PAIN OR NUMBNESS? NO . GASTROENTEROLOGY: ANY NEW CHANGE IN BOWEL CONTROL? NO . GENITOURINARY: ANY NEW CHANGE IN BLADDER CONTROL? NO . IS THERE A CHANCE YOU COULD BE ? NO . HEMATOLOGY/LYMPH: DO YOU TAKE ANY BLOOD THINNERS? (FOR EXAMPLE- COUMADIN, PLAVIX, AGGRENOX, PLATEL, PRADAXA, OR XARELTO) NO . WHEN WAS YOUR LAST DOSE? DATE: TIME: . NEUROLOGY: HAVE YOU FALLEN IN THE PAST 12 MONTHS? NO . ANY NEW EXTREMITY NUMBNESS OR WEAKNESS? NO . CARDIOLOGY: DO YOU HAVE A PACEMAKER OR DEFIBRILLATOR? NO . RESPIRATORY: HAVE YOU BEEN SICK IN THE PAST WEEK? NO . FEVER NO . FLU LIKE SYMPTOMS? NO . COUGH NO . INTEGUMENTARY: DO YOU HAVE ANY RASHES OR OPEN SORES? NO . ALLERGIC/IMMUNO: ARE YOU ALLERGIC TO IV DYE? NO . ANY NEW ALLERGIES? NO . PSYCHIATRIC: DO YOU HAVE THOUGHTS OF HURTING YOURSELF OR SOMEONE ELSE? NO . ARE YOU ABUSED, NEGLECTED, OR IN AN UNSAFE ENVIRONMENT? NO . ENDOCRINOLOGY: ARE YOU DIABETIC? NO . OTHER: DO YOU NEED ANY PRESCRIPTIONS? NO . IF YES, PLEASE LIST: ____ . ANY NEW PROBLEMS WITH YOUR MEDICATIONS? NO . WHEN DID YOU LAST EAT? ____11/23/19 1800 . WHEN DID YOU LAST DRINK? ____11/24/19 0600 . WHAT DID YOU LAST DRINK? ____WATER . NAME OF PERSON DRIVING YOU HOME? ____BRUCE VOLUNTEER LUMBER TALLIER. . DO YOU HAVE ANY OTHER QUESTIONS OR CONCERNS NO . VITAL SIGNS WT 220.8 LBS, HT 60 IN, BMI 43.12 INDEX, BP 120/74 MM HG, HR 93 /MIN, RR 18 /MIN, TEMP 96.9 F, OXYGEN SAT % 96%, NA INITIALS AW 1324. EXAMINATION GENERAL EXAMINATION: THE PATIENT IS ALERT, ORIENTED TIMES THREE AND COOPERATIVE. THE PATIENT HAS TENDERNESS WITH PRESENCE OF BANDS OF TISSUE AND TRIGGER POINTS WITH RESTRICTION OF MOVEMENT OF THE BILATERAL LOW BACK. ASSESSMENTS MYALGIA, OTHER SITE - M79.18 (PRIMARY) MYOFASCIAL PAIN SYNDROME - M79.18 TREATMENT MYALGIA, OTHER SITE CLINICAL NOTES: WE DISCUSSED SEVERAL ALTERNATIVES WITH MS. SHEARER REGARDING HER TREATMENT OPTIONS AND CARE. WE HAVE DECIDED TO DO TRIGGER POINT INJECTIONS TODAY. I, HONEY BARILLAS, DOCUMENTED THE ABOVE INFORMATION ACTING A SCRIBE FOR DR. NINO. I HAVE REVIEWED THE ABOVE DOCUMENT, WRITTEN BY HONEY BARILLAS, PLEAT PATTERNMAKER, AND I VERIFY THAT IT IS ACCURATE. PROCEDURES PN TRIGGER POINT INJECTION NO STEROIDS DATE OF PROCEDURE : PRE PROCEDURE DIAGNOSIS 1. MYALGIA 2. PAIN AT BILATERAL LOWER BACK AREA POST PROCEDURE DIAGNOSIS 1. MYALGIA 2. PAIN AT BILATERAL LOWER BACK AREA PROCEDURE TRIGGER POINT INJECTION AT BILATERAL LOWER BACK AREA SURGEON DR. DAVID NINO EVENT PROMOTIONS COORDINATOR NONE ANESTHESIA LOCAL PRE PROCEDURE NOTE 44- YEAR-OLD PATIENT WITH HISTORY OF CHRONIC PAIN AT BILATERAL LOWER BACK AREA. I EVALUATED THE PATIENT AND REVIEWED THE CHART. THERE IS EVIDENCE OF BANDS OF TISSUE WITH RESTRICTION OF MOVEMENT AND PRESENCE OF TRIGGER POINT AT THE BILATERAL LOWER BACK AREA. I WENT OVER THE RISKS, ALTERNATIVES, AND BENEFITS ASSOCIATED WITH THIS PROCEDURE. THE PATIENT WOULD LIKE TO PROCEED AND GAVE CONSENT TO PERFORM THE PROCEDURE. THE PATIENT DENIES UNEXPLAINABLE WEIGHT LOSS, FEVER, CHILLS, OR NEW CHANGES IN URINARY OR BOWEL CONTROL DESCRIPTION OF PROCEDURE THE PATIENT WAS BROUGHT TO THE PROCEDURE ROOM AND PLACED IN THE SITTING POSITION. THE AREA WAS CLEANED WITH ALCOHOL. THE PROCEDURE WAS DONE USING ASEPTIC STERILE TECHNIQUES. I CHECKED LATERALITY AND THE LEVEL WHERE THE PROCEDURE WAS GOING TO BE PERFORMED WITH THE PATIENT AND THE SUPPORTING STAFF AT THE MOMENT OF THE TIME OUT IN THE PROCEDURE ROOM. USING A 25-GAUGE NEEDLE, TRIGGER POINTS WERE INJECTED INTO THE BILATERAL LOWER BACK AREA WITH A TOTAL OF 40 ML OF BUPIVACAINE 0.25%. AGREED WITH THE PATIENT THE PROCEDURE WAS DONE WITHOUT STEROIDS. THERE WAS NO EVIDENCE OF BLOOD, PARESTHESIA OR CEREBROSPINAL FLUID DURING THE PROCEDURE. THE PATIENT WAS SENT TO THE RECOVERY ROOM. THE PATIENT WAS MOVING THE EXTREMITIES AND DOING WELL. THERE WAS NO COMPLICATION DURING THE PROCEDURE POST PROCEDURE NOTE THE PATIENT WILL BE SEEN IN A FOLLOW UP IN THE NEXT FEW WEEKS. I AM LOOKING FOR LONG LASTING PAIN RELIEF FOR THE PATIENT WITH THIS INJECTION. INSTRUCTIONS WERE GIVEN, QUESTIONS WERE ANSWERED, AND THE PATIENT EXPRESSED UNDERSTANDING AND AGREED WITH THE PLAN. I, HONEY BARILLAS, DOCUMENTED THE ABOVE INFORMATION ACTING A SCRIBE FOR DR. NINO. I HAVE REVIEWED THE ABOVE DOCUMENT, WRITTEN BY VITOR MCDONALD, AND I VERIFY THAT IT IS ACCURATE PROCEDURE CODES 57971 INJ TRIGGER POINT /2 MUSCL DISPOSITION & COMMUNICATION FOLLOW UP F/UP FELT TIPPING MACHINE TENDER (REASON: POST-PROCEDURE F/UP) ELECTRONICALLY SIGNED BY DAVID NINO MD, MD ON 11/24/2019 AT 05:00 PM EDT DISCLAIMER : THIS IS A VISIT SUMMARY EXTRACTED FROM THE [employer] CHART. IT IS NOT A COPY OF THE [employer] PROGRESS NOTE. MTDNicholas
== END ==
LOC: M PAIN 13:45
PROVIDERS: ATTEND Anesthesiology
DX: M79.18 Myalgia, other site (principal); K21.9 Gastro-esophageal reflux disease without esophagitis; G43.909 Migraine, unspecified, not intractable, without status migrainosus; G25.81 Restless legs syndrome; D50.9 Iron deficiency anemia, unspecified; Z88.0 Allergy status to penicillin; Z88.5 Allergy status to narcotic agent; Z88.6 Allergy status to analgesic agent; Z88.8 Allergy status to other drugs, medicaments and biological substances; Z91.09 Other allergy status, other than to drugs and biological substances; E66.01 Morbid (severe) obesity due to excess calories; Z68.41 Body mass index [BMI] 40.0-44.9, adult; Z79.891 Long term (current) use of opiate analgesic; Z79.899 Other long term (current) drug therapy

== ENCOUNTER → 2019-11-29 | Outpatient (CLI) | payer MEDICARE, MEDICAID ==
[~2019-11-29] MED LIST changes: -BUPIVACAINE HCL 0.25% 10ML VIAL As Ordered ONE; -BUPIVACAINE HCL 0.25% 30ML VIAL As Ordered ONE; -diazePAM 5 MG TAB As Ordered ONE; -oxyCODONE 5MG TAB As Ordered ONE
== END ==
LOC: M LABSMTC 09:04
PROVIDERS: ATTEND Anesthesiology
DX: Z01.818 Encounter for other preprocedural examination (principal); Z11.59 Encounter for screening for other viral diseases

== ENCOUNTER 2019-12-02 07:46 | Day surgery (SDC) | payer MEDICARE, MEDICAID ==
[~2019-12-02] VITALS: Ht 152.4 cm; Wt 103.0 kg
[~2019-12-02 07:46] MED LIST changes: +NS 1,000 ML IV ONE
[2019-12-02] MEDS ORDERED: propofoL 200 MG/20 ML VIAL As Ordered ONE (08:17)
[2019-12-02] MEDS ORDERED: fentaNYL 100 MCG/2 ML INJECTION (J3010) As Ordered ONE (08:23)
[2019-12-02] MEDS ORDERED: LIDOCAINE 2% 100MG/5ML SDV (FOR ANES.) As Ordered ONE (08:23)
--- NOTE | 2019-12-02 08:52 | ROOR ---
Patient Name: Anamaria Velazquez Procedure Date: 12/02/2019 8:45 AM Date of : 1975 Age: 44 Room: [facility] Gender: Female Note Status: Finalized Procedure: Upper GI endoscopy Indications: Epigastric abdominal pain Providers: Mauricio OLIVO MD Referring MD: Prema Alex MD Requesting Provider: Medicines: Monitored Anesthesia Care Complications: No immediate complications. Procedure: Pre-Anesthesia Assessment: - The heart rate, respiratory rate, oxygen saturations, blood pressure, adequacy of pulmonary ventilation, and response to care were monitored throughout the procedure. The Endoscope was introduced through the mouth, and advanced to the second part of duodenum. The upper GI endoscopy was accomplished without difficulty. The patient tolerated the procedure well. Findings: The esophagus was normal. The stomach was normal. The examined duodenum was normal. Impression: - Normal esophagus. - Normal stomach. - Normal examined duodenum. - No specimens collected. Recommendation: - Follow an antireflux regimen. - Observe patient's clinical course. - Return to referring physician as previously scheduled. Mauricio Olivo MD Mauricio OLIVO MD 12/02/2019 8:51:54 AM Electronically signed by Mauricio OLIVO MD Number of Addenda: 0 Note Initiated On: 12/02/2019 8:45 AM Estimated Blood Loss: Estimated blood loss: none.
[2019-12-02 09:10] VITALS: BP 126/74
== END 2019-12-02 09:22 | disposition home or self-care (01) ==
LOC: M OPP 07:46
PROVIDERS: ATTEND Internal Medicine Gastroenterology
DX: R10.13 Epigastric pain (principal); K21.9 Gastro-esophageal reflux disease without esophagitis; Z79.899 Other long term (current) drug therapy; Z88.0 Allergy status to penicillin; Z88.5 Allergy status to narcotic agent; Z88.8 Allergy status to other drugs, medicaments and biological substances; Z91.040 Latex allergy status; Z91.048 Other nonmedicinal substance allergy status
CPT/HCPCS: 43235; J3010

== ENCOUNTER → 2019-12-22 | Outpatient (CLI) | payer MEDICARE, MEDICAID ==
[~2019-12-22] MED LIST changes: -NS 1,000 ML IV ONE
--- NOTE | 2019-12-24 02:56 | ECWPNPC ---
PATIENT NAME: DEEDEE SHEARER : 1975 GENDER: FEMALE VISIT DATE: 12/22/2019 DISCHARGE DATE: 12/22/19 1023 VISIT LOCKED DATE TIME: PHYSICIAN: STARLA CHEATHAM RESOURCE: STARLA CHEATHAM REASON FOR APPOINTMENT 1. 6 WEEKS-NECK/HEAD/LBP HISTORY OF PRESENT ILLNESS GENERAL: HERE FOR POST PROCEDURE FOLLOW-UP. HAD TRIGGER POINT INJECTIONS ACROSS LOW BACK ON 11/24/2019. REPORTS IMPROVEMENT IN PAIN THAT CONTINUES TODAY. COMPLAINING OF INCREASE IN HEADACHES/MIGRAINE OVER THE PAST WEEK DUE TO RAIN. FOLLOWS WITH NEUROLOGY FOR CHRONIC MIGRAINE. FEELS CURRENT MEDICINE IS HELPFUL AT REDUCING PAIN AND KEEPING HER FUNCTIONAL. DENIES ADVERSE SIDE EFFECTS. -. FALL RISK SCREENING: SCREENING :ONE FALL WITHOUT INJURY IN THE PAST YEAR PAIN SCREENING: PATIENT HAS A COMPLAINT OF ACUTE OR CHRONIC PAIN :YES 12/19/19 INTENSITY OF PAIN (SCALE OF 1 TO 10):6 AVERAGE 4-6 WHAT DOES YOUR PAIN FEEL LIKE:ACHING, BURNING, CONTINOUS, INTERMITTENT, SHARP, STABBING, TENDER, THROBBING, SORE, SHOOTING PAIN IS INCREASED BY: WET WEATHER PAIN IS DECREASED BY: SUNSHINE NURSING NOTE: -. PAIN CENTER INTAKE QUESTIONS: DO YOU HAVE A HISTORY OF MRSA? :NO DO YOU TAKE A BLOOD THINNERS? :NO DO YOU HAVE ANY BLEEDING DISORDERS? :NO ANY NEW NUMBNESS OR WEAKNESS IN YOUR LEGS OR ARMS? :NO ANY PACEMAKER,DEFIBRILLATOR, OR DORSAL COLUMN STIMULATOR? :NO DO YOU HAVE ANY RASHES OR OPEN SORES? :NO ARE YOU ALLERGIC TO IV DYE? :NO ARE YOU DIABETIC? :NO ANY NEW PROBLEMS WITH YOUR MEDICATIONS? :NO HAVE YOU RECEIVED A VACCINE IN THE PAST 30 DAYS? :NO DO YOU PLAN TO RECEIVE A VACCINE IN THE NEXT 21 DAYS? :NO DO YOU NEED ANY PRESCRIPTION? :YES CYCLOBENZAPRINE, LYRICA DO YOU TAKE ANY IMMUNOSUPPRESSIVE MEDICATIONS? :NO CURRENT MEDICATIONS TAKING PROMETHAZINE HCL 25 MG TABLET 1 TABLET NEEDED ORALLY EVERY 12 HRS PRN NAUSEA TAKING ALAVERT ALLERGY/SINUS 5-120 MG TABLET EXTENDED RELEASE 12 HOUR 1 TABLET NEEDED ORALLY EVERY 12 HRS TAKING ALBUTEROL SULFATE HFA 108 (90 BASE) MCG/ACT AEROSOL SOLUTION 2 PUFFS NEEDED INHALATION EVERY 4 HRS PRN SOB/WHEEZING TAKING VITAMIN C ER 1000 MG TABLET EXTENDED RELEASE 1 TABLET ORALLY ONCE A DAY TAKING VERAPAMIL HCL ER 180 MG TABLET EXTENDED RELEASE 1 TABLET ORALLY TWICE A DAY TAKING PANTOPRAZOLE SODIUM 40 MG TABLET DELAYED RELEASE 1 TABLET ORALLY BID TAKING E-Z SPACER 1 SPACER ICD10: J44.9 DIRECTED WITH PRN ALBUTEROL INHALER TAKING SENOKOT S THREE TIMES A DAY TAKING VITAMIN D3 2000 UNIT CAPSULE 2 CAPSULES ORALLY ONCE A DAY TAKING FERROUS SULFATE 325 MG CAPSULE 1300 MG ORALLY DAILY TAKING OXYBUTYNIN CHLORIDE ER 5 MG TABLET EXTENDED RELEASE 24 HOUR 1 TABLET ORALLY ONCE A DAY TAKING PROCTOZONE-HC 2.5 % CREAM 1 APPLICATION TO AFFECTED AREA RECTAL TWICE A DAY NEEDED TAKING MOBIC 15 MG TABLET 1 TABLET ORALLY ONCE A DAY NEEDED TAKING CYCLOBENZAPRINE HCL 10 MG TABLET 1/2-1 TAB ORALLY BID FOR SEVERE MUSCLE SPASM TAKING SPIRONOLACTONE 25 MG TABLET 1 TABLET ORALLY ONCE A DAY TAKING ATORVASTATIN CALCIUM 40 MG TABLET 1 TABLET ORALLY DAILY TAKING OXYCODONE HCL 10 MG TABLET 1 TABLET ORALLY Q12H BID MDD2 TAKING LYRICA 200 MG CAPSULE 1 CAPSULE 1 TO 3 HOURS BEFORE BEDTIME ORALLY THREE TIMES DAILY TAKING EMGALITY 120 MG/ML SOLUTION AUTO-INJECTOR DIRECTED SUBCUTANEOUS MONTHLY TAKING ZOLMITRIPTAN 5 MG TABLET 1 TABLET ORALLY ONCE A DAY NEEDED NOT-TAKING SUMATRIPTAN SUCCINATE 100 MG TABLET 1 TABLET AT LEAST 2 HOURS BETWEEN DOSES NEEDED ORALLY TWICE A DAY NOT-TAKING MORPHINE SULFATE 15 MG TABLET 1 TABLET NEEDED ORALLY FOR PAIN DAILY MDD1 NOT-TAKING TIZANIDINE HCL 4 MG TABLET TAKE 1 TABLET BY MOUTH TWICE DAILY NEEDED. DO NOT TAKE IF TAKING BACLOFEN ON SAME DAY. , NOTES: NONE RECENT NOT-TAKING EMGALITY 120 MG/ML SOLUTION AUTO-INJECTOR DIRECTED SUBCUTANEOUS NOT-TAKING LYRICA 200 MG CAPSULE 1 CAPSULE ORALLY Q8H TID MDD3 NOT-TAKING MAGNESIUM CHLORIDE - POWDER 2 [id number] (4 TSPS) ORALLY TWICE DAILY NEEDED, NOTES: NONE RECENT NOT-TAKING ALEVE 220 MG TABLET 1 TABLET WITH FOOD OR MILK NEEDED ORALLY EVERY 12 HRS, NOTES: NONE RECENT NOT-TAKING AJOVY 225 MG/1.5ML SOLUTION PREFILLED SYRINGE 1.5 ML SUBCUTANEOUS MONTHLY NOT-TAKING RIZATRIPTAN BENZOATE 10 MG TABLET 1 TABLET ORALLY ONCE A DAY NOT-TAKING AIMOVIG 70 MG/ML SOLUTION AUTO-INJECTOR DIRECTED SUBCUTANEOUS MEDICATION LIST REVIEWED AND RECONCILED WITH THE PATIENT PAST MEDICAL HISTORY GERD DDD, HERNIATED DISCS, SPINE ARTHRITIS COPD PER PATIENT CHRONIC MIGRAINES HX RIGHT ANKLE FX, LEFT FOOT FX, COCCYX FX R KNEE SCAR TISSUE OBESITY PCOS, HIRSUTISM HYPERLIPIDEMIA RESTLESS LEGS SYNDROME IRON DEFICIENCY ANEMIA CHRONIC FATIGUE IRREGULAR HEAVY MENSES ENDOMETRIOSIS INTERSTITIAL CYSTITIS REPORTED HISTORY OF COLONIC POLYPS ELEVATED 24 HR CORTISOL- SAW DR. GOMEZ, NO ADRENAL INSUFFICIENCY OCCIPITAL NEURALGIA CHRONIC PAIN DUE TO TRAUMA MYALGIA CONSTIPATION TUMOR UTERUS CHRONIC BACK AND NECK PAIN ALLERGIES TYLENOL: FEVER - ALLERGY ZANTAC: NUMBNESS ANDTINGLING IN HANDS AND SWOLLEN LIPS - ALLERGY HYDROCODONE-ACETAMINOPHEN: FEVER ,NAUSEA - ALLERGY PENICILLIN (FOR ALLERGIES USE ONLY): YEAST INFECTION - SIDE EFFECTS VENOFER: JOINT SWELLING - ALLERGY BANDAIDS/ADHESIVES: RASH - ALLERGY SURGICAL HISTORY TONSILLECTOMY 1990 APPENDECTOMY 1977 R KNEE FX 2002 R ANKLE FX 2016 DIAGNOSTIC LAPAROSCOPY WITH REMOVAL OF SCAR TISSUE 2011 COLONOSCOPY/ ENDOSCOPY 09/26/2018 RIGHT ANKLE HARDWARE REMOVED 10/2018 TOOTH EXTRACTION 1998 GALLBLADDER REMOVAL 04/2019 UTERINE TUMOR REMOVAL 04/2019 ENDOSCOPE 11/2019 FAMILY HISTORY FATHER: , PANCREATITIS MOTHER: , EMPHYSEMA, ASTHMA SIBLINGS: ALIVE, SISTER JAYLA, STAGE 3A LUNG CANCER, SISTER OCTOBER HAS LEUKEMIA, SISTER YEIMI IS FROM UTERINE WITH METS TO LUNGS, LIVER, KIDNEYS; SISTER SUNDAY HAD CERVICAL CA; BROTHER ALYSSA HAS PROSTATE CA 3 BROTHER(S) , 7 SISTER(S) - HEALTHY. SOCIAL HISTORY GENERAL: TOBACCO USE ARE YOU A:NONSMOKER NEVER SMOKER LATEX QUESTIONNAIRE LATEX ALLERGY : HAVE YOU EVER DEVELOPED ANY TYPE OF REACTION AFTER HANDLING LATEX PRODUCTS SUCH RUBBER GLOVES, CONDOMS, DIAPHRAGMS, BALLOONS, SOCKS, OR UNDERWEAR?YES LATEX ALLERGY : HAVE YOU EVER DEVELOPED ANY TYPE OF REACTION DURING OR AFTER DENTAL APPOINTMENT, VAGINAL/RECTAL EXAMINATION, SURGICAL PROCEDURE, OR ANY OTHER EXPOSURE?NO - PLEASE INDICATE :OTHER (DOCUMENT IN NOTES) SOME BANDAIDS DATE ASKED : 11/10/2019 LATEX RISK : HAVE YOU EVER HAD ANY DIFFICULTY BREATHING OR HIVES AFTER EATING OR HANDLING ANY FRUITS, OR VEGETABLES; SUCH KIWI, BANANAS, STONE FRUITS, OR CHESTNUTSNO LATEX RISK : DO YOU HAVE A PREVIOUS PERSONAL HISTORY OF MORE THAN NINE SURGERIES, SPINA BIFIDA, OR REPEATED CATHERIZATIONS? NO LATEX RISK : ARE YOU FREQUENTLY EXPOSED TO LATEX PRODUCTS IN YOUR OCCUPATION?NO ALCOHOL SCREENING DID YOU HAVE A DRINK CONTAINING ALCOHOL IN THE PAST YEAR?NO POINTS0 INTERPRETATIONNEGATIVE RECREATIONAL DRUG USE DRUG USE?NO CAFFEINE CAFFEINE USE?NO SEXUAL HX HAD SEX IN THE LAST 12 MONTHS (VAGINAL, ORAL, OR ANAL)?NO HAVE YOU EVER HAD AN STD?NO HIV / HEP-C SCREENING HIV TEST OFFERED TO PATIENT:YES DATE OFFERED:08/01/2017 TEST ACCEPTED:NO HEP-C TEST OFFERED TO PATIENT:NO REASON:PATIENT DECLINED BROCHURE PROVIDED TO PATIENTYES MU-ISM [id number] NONE OTHER LANGUAGE LANGUAGES SPOKEN:MACEDONIAN EDUCATION LEVEL OF EDUCATION:COLLEGE LEARNING BARRIERS / SPECIAL NEEDS BARRIERS TO LEARNING?NO HEARING IMPAIRED?NO VISION IMPAIRED?NO COGNITIVELY IMPAIRED?NO READINESS TO LEARN?YES LEARNING PREFERENCES?YES :DEMONSTRATION/VERBAL INSTRUCTION LEARNING CAPABILITIES PRESENT?YES EMOTIONAL BARRIERS?NO SPECIAL DEVICES?NO PROPERTY TECHNICIAN NEEDED?NO DOMESTIC VIOLENCE DO YOU FEEL SAFE IN YOUR ENVIRONMENT?YES OCCUPATION: UNEMPLOYED. DIET: NO MSG ,GLUTEN FREE. EXERCISE: NONE. MARITAL STATUS: SINGLE. OTHERS AT HOME: SIBLING, IN-LAW(S). NEW PATIENT PAIN DIARY TODAY'S VISIT 11/24/2019 PATIENT DESCRIBES PAIN :HAVE IT ALL THE TIME, SHARP FROM 0-10, WHAT LEVEL IS YOUR PAIN TODAY?8 PRECIPITATING FACTORS ACTIVITY MAKES IT WORSE ALLEVIATING FACTORS TRIGGER POINT INJECTIONS HELP PAIN CLINIC PFS, CLERGY, PUBLIC HEALTH REFERRALS WAS THE PROVIDER NOTIFIED OF ANY PERTINENT INFO?YES HAS THE PATIENT BEEN EDUCATED REGARDING HIS/HER PLAN OF CARE?YES HAS THE PATIENT BEEN EDUCATED REGARDING PAIN, THE RISK FOR PAIN, THE IMPORTANCE OF EFFECTIVE PAIN MANAGEMENT, AND THE PAIN ASSESSMENT PROCESS?YES ADVANCE DIRECTIVE ADVANCE DIRECTIVE DISCUSSED WITH PATIENT:YES HAS FABRICE- MALGORZATA VELASCO [phone] HOSPITALIZATION/MAJOR DIAGNOSTIC PROCEDURE ABOVE SURGERIES REVIEW OF SYSTEMS CONSTITUTIONAL: ANY RECENT FEVER OR ILLNESS NO . CHILLS NO . GASTROENTEROLOGY: BOWEL INCONTINENCE NO . ANY NEW CHANGE IN BOWEL CONTROL? NO . ABDOMINAL PAIN NO . CONSTIPATION NO . GENITOURINARY: ANY NEW CHANGE IN BLADDER CONTROL? NO . IS THERE A CHANCE YOU COULD BE ? NO . URINARY INCONTINENCE NO . CARDIOLOGY: CHEST PRESSURE NO . CHEST PAIN NO . RESPIRATORY: COUGH NO . SHORTNESS OF BREATH NO . VITAL SIGNS WT 225.2 LBS, HT 60 IN, BMI 43.98 INDEX, BP 118/73 MM HG, HR 97 /MIN, RR 18 /MIN, TEMP 97.4 F, OXYGEN SAT % 96%, SAFE IN ENV? (Y/N) Y, NA INITIALS TL [id number], REVIEWED BY: SUKHWINDER. EXAMINATION GENERAL EXAMINATION: GENERALAWAKE,ALERT ,PLEASANT . PSYCHAFFECT NORMAL . LUNGS:LUNG QUINTERO ARE CLEAR TO AUSCULTATION BILATERALLY. GOOD MOVEMENT OF AIR . HEART:S1, S2 IN A REGULAR RATE AND RHYTHM. NO SIGNIFICANT MURMURS, RUBS OR GALLOPS NOTED . ASSESSMENTS MYALGIA, OTHER SITE - M79.18 (PRIMARY) TREATMENT MYALGIA, OTHER SITE CONTINUE MOBIC TABLET, 15 MG, 1 TABLET, ORALLY, ONCE A DAY NEEDED REFILL CYCLOBENZAPRINE HCL TABLET, 10 MG, 1/2-1 TAB, ORALLY, BID FOR SEVERE MUSCLE SPASM, 30 DAY(S), 45, REFILLS 3 REFILL LYRICA CAPSULE, 200 MG, 1 CAPSULE 1 TO 3 HOURS BEFORE BEDTIME, ORALLY, THREE TIMES DAILY, 30 DAYS, 90, REFILLS 3 CONTINUE OXYCODONE HCL TABLET, 10 MG, 1 TABLET, ORALLY, Q12H BID MDD2 NOTES: ISTOP REGISTRY REVIEWED AND DEMONSTRATES COMPLLIANCE. RECENT URINE TOXICOLOGY REVIEWED. NO UNAUTHORIZED MEDICATIONS. NO ILLICIT SUBSTANCES AND PRESCRIBED MEDICATIONS WERE PRESENT. , RISKS OF NARCOTIC/OPIOD MEDICATIONS INCLUDES BUT IS NOT LIMITED TO RISK OF DEPENDANCE/DEVELOPMENT OF ADDICTION, MOOD DISTURBANCE AND DEPRESSION, OSTEOPOROSIS, HORMONAL AND LABIDAL CHANGES, RESPIRATORY DEPRESSION AND . PATIENT IS ADVISED NOT TO DRIVE OR DRINK ALCOHOL WHILE ON THESE MEDICATIONS. OTHERS CLINICAL NOTES: PRE SCREENING CALL DONE. 12/19/19 EM. PROCEDURE CODES FA211 ESTABILISHED PATIENT [facility] CHARGE DISPOSITION & COMMUNICATION FOLLOW UP 2 MONTHS (REASON: NECK/LOW BACK) ELECTRONICALLY SIGNED BY BRYANT MIXON ON 12/23/2019 AT 08:41 AM EDT DISCLAIMER : THIS IS A VISIT SUMMARY EXTRACTED FROM THE USDS CHART. IT IS NOT A COPY OF THE USDS PROGRESS NOTE. JOHNNIE
== END ==
LOC: M PAIN 09:45
PROVIDERS: ATTEND Nurse Practitioner Family
DX: M79.18 Myalgia, other site (principal); K21.9 Gastro-esophageal reflux disease without esophagitis; G43.909 Migraine, unspecified, not intractable, without status migrainosus; G25.81 Restless legs syndrome; D50.9 Iron deficiency anemia, unspecified; Z88.0 Allergy status to penicillin; Z88.5 Allergy status to narcotic agent; Z88.6 Allergy status to analgesic agent; Z88.8 Allergy status to other drugs, medicaments and biological substances; Z91.09 Other allergy status, other than to drugs and biological substances; E66.01 Morbid (severe) obesity due to excess calories; Z68.41 Body mass index [BMI] 40.0-44.9, adult; Z79.891 Long term (current) use of opiate analgesic; Z79.899 Other long term (current) drug therapy

== ENCOUNTER → 2019-12-25 | Outpatient (REF) | payer MEDICARE, MEDICAID ==
[2019-12-25 13:55] LABS: BASO # 0.1 10^3/uL (0.0-0.2); BASO % 0.8 % (0.0-1.0); EOS # 0.1 10^3/uL (0.0-0.5); EOS % 1.5 % (0.0-3.0); HEMATOCRIT 42.3 % (36.0-47.0); HEMOGLOBIN 13.4 g/dl (12.0-15.5); LYMPH # 2.3 10^3/uL (1.5-5.0); LYMPH % 34.6 % (24.0-44.0); MEAN CORPUSCULAR HEMOGLOBIN 29.5 pg (27.0-33.0); MEAN CORPUSCULAR HGB CONC 31.7 g/dl (32.0-36.5); MONO # 0.5 10^3/uL (0.0-0.8); MONO % 8.3 % (0.0-5.0); NEUTROPHILS # 3.6 10^3/uL (1.5-8.5); NEUTROPHILS % 54.5 % (36.0-66.0); PLATELET COUNT, AUTOMATED 257 10^3/uL (150-450); RED BLOOD COUNT 4.55 10^6/uL (4.00-5.40); WHITE BLOOD COUNT 6.5 10^3/uL (4.0-10.0)
[2019-12-25 14:06] LABS: INR 1.03; PARTIAL THROMBOPLASTIN TIME 27.3 SECONDS (25.0-38.4); PROTHROMBIN TIME 13.2 SECONDS (11.8-14.0)
[2019-12-25 14:17] LABS: BLOOD UREA NITROGEN 11 MG/DL (7-18); CALCIUM LEVEL 8.3 MG/DL (8.5-10.1); CARBON DIOXIDE LEVEL 26 MEQ/L (21-32); CHLORIDE LEVEL 108 MEQ/L (98-107); CREATININE FOR GFR 0.97 MG/DL (0.55-1.30); GLOMERULAR FILTRATION RATE > 60.0 (>58); GLUCOSE, FASTING 146 MG/DL (70-100); SODIUM LEVEL 141 MEQ/L (136-145)
== END ==
LOC: M PLALAB 11:15
PROVIDERS: ATTEND Family Medicine
DX: R23.8 Other skin changes (principal); L68.0 Hirsutism
CPT/HCPCS: 36415; 80048; 85025; 85610; 85730; G0463

== ENCOUNTER → 2020-01-12 | Outpatient (CLI) | payer MEDICARE, MEDICAID ==
--- NOTE | 2020-01-13 10:19 | REP ---
UNILATERAL MAMMOGRAM RIGHT BREAST WITH 3D TOMOSYNTHESIS AND RIGHT BREAST ULTRASOUND: The patient has a history of a fall one month ago with right breast lump in the upper outer quadrant. There is no family history of breast cancer. Tyrer-Cuzick lifetime risk of breast cancer 15.0%. Volpara breast density is B. Comparison made with prior mammograms of 06/11/2019 and 04/24/2018. There is mild scattered fibroglandular tissue throughout the right breast. I see no evidence of mass or clustered microcalcifications. Real-time sonographic evaluation of the right breast performed at the site of the palpable lump in the region of 10 -o'clock position. At this location, there are three simple benign appearing cysts present measuring 6 mm, 3 mm and 3 mm in maximum diameter. IMPRESSION: BIRADS 2: BI-RADS/ACR category 2 mammogram. Benign Findings. ACR2 benign. No mammographic evidence of mass or suspicious clusters of microcalcifications. By ultrasound at the site of the palpable lump in the upper outer quadrant of the right breast, there are three subcentimeter cysts. No solid mass is seen. Recommend followup bilateral mammogram in May 2020. This mammogram was interpreted with the aid of an FDA-approved computer-aided detection system. A. Negative x-ray reports should not delay biopsy if a dominant or clinically suspicious mass is present. B. Four to eight percent of cancers are not identified by x-ray. C. Adenosis and dense breasts may obscure an underlying neoplasm. The patient states she/he had a clinical breast exam in April 2019. The patient letter being requested is M2.
== END ==
LOC: M WHC 13:54
PROVIDERS: ATTEND Family Medicine
DX: N60.11 Diffuse cystic mastopathy of right breast (principal)
CPT/HCPCS: 76642; 77065; G0279

== ENCOUNTER → 2020-01-16 | Outpatient (CLI) | payer MEDICARE, MEDICAID ==
--- NOTE | 2020-01-16 13:58 | REP ---
Intracranial MRA: 01/16/2020. Indication: Headaches. Technique: 3-D [id number] imaging of the intracranial vessels were obtained without IV Gadolinium. Comparison: None. Findings: There is no intracranial aneurysm, high-grade stenosis, vessel occlusion or AVM. Impression: Unremarkable intracranial vessels. Electronically Signed by Paco Giron DO 01/16/2020 01:50 P
== END ==
LOC: M RAD 12:32
PROVIDERS: ATTEND Registered Nurse
DX: G43.809 Other migraine, not intractable, without status migrainosus (principal); R90.89 Other abnormal findings on diagnostic imaging of central nervous system

== ENCOUNTER → 2020-01-21 | Outpatient (CLI) | payer MEDICARE, MEDICAID ==
[2020-01-21 12:04] LABS: BLOOD UREA NITROGEN 10 MG/DL (7-18); CALCIUM LEVEL 8.7 MG/DL (8.5-10.1); CARBON DIOXIDE LEVEL 26 MEQ/L (21-32); CHLORIDE LEVEL 109 MEQ/L (98-107); CREATININE FOR GFR 0.89 MG/DL (0.55-1.30); GLOMERULAR FILTRATION RATE > 60.0 (>58); GLUCOSE, FASTING 171 MG/DL (70-100); POTASSIUM SERUM 3.7 MEQ/L (3.5-5.1); SODIUM LEVEL 142 MEQ/L (136-145)
== END ==
LOC: M LAB 10:58
PROVIDERS: ATTEND Family Medicine
DX: L68.0 Hirsutism (principal)

== ENCOUNTER → 2020-03-04 | Outpatient (POV) | payer MEDICARE, MEDICAID ==
[~2020-03-04] MED LIST changes: +BUPIVACAINE HCL 0.25% 30ML VIAL As Ordered ONE; +BUPIVACAINE HCL 0.25% 30ML VIAL ONE; +D31000TA2 PO; +ISOVUE-M 300 61% 15ML VIAL As Ordered ONE; +ISOVUE-M 300 61% 15ML VIAL ONE; +LIDOCAINE 1% SDV 30ML VIAL As Ordered ONE; +LIDOCAINE 1% SDV 30ML VIAL ONE; +PANT40TA29 PO; -PANT40TA3 PO; +TRIAMCINOLONE ACETONIDE SUSP 40 MG/ML VIAL (J3301) As Ordered ONE; +TRIAMCINOLONE ACETONIDE SUSP 40 MG/ML VIAL (J3301) ONE; -VITAD1000T PO; +diazePAM 5 MG TAB As Ordered ONE; +diazePAM 5 MG TAB ONE; +oxyCODONE 5MG TAB As Ordered ONE; +oxyCODONE 5MG TAB ONE
--- NOTE | 2020-04-13 10:13 | REP ---
C-ARM VIEWS SACROILIAC JOINTS: HISTORY: Pain. FINDINGS: 4 C-arm views bilateral sacroiliac joints performed during bilateral sacroiliac joint injections done by Dr. Santos. The needle is seen overlying each sacroiliac joint. 22 seconds of fluoroscopy time utilized. MTDD
== END ==
LOC: M PAIN 10:15
PROVIDERS: ATTEND Anesthesiology
DX: M46.1 Sacroiliitis, not elsewhere classified (principal)

== ENCOUNTER → 2020-03-16 | Outpatient (CLI) | payer MEDICARE, MEDICAID ==
[~2020-03-16] MED LIST changes: -BUPIVACAINE HCL 0.25% 30ML VIAL As Ordered ONE; -BUPIVACAINE HCL 0.25% 30ML VIAL ONE; -ISOVUE-M 300 61% 15ML VIAL As Ordered ONE; -ISOVUE-M 300 61% 15ML VIAL ONE; -LIDOCAINE 1% SDV 30ML VIAL As Ordered ONE; -LIDOCAINE 1% SDV 30ML VIAL ONE; -TRIAMCINOLONE ACETONIDE SUSP 40 MG/ML VIAL (J3301) As Ordered ONE; -TRIAMCINOLONE ACETONIDE SUSP 40 MG/ML VIAL (J3301) ONE; -diazePAM 5 MG TAB As Ordered ONE; -diazePAM 5 MG TAB ONE; -oxyCODONE 5MG TAB As Ordered ONE; -oxyCODONE 5MG TAB ONE
== END ==
LOC: M PAIN 09:22
PROVIDERS: ATTEND Nurse Practitioner Family
DX: M46.1 Sacroiliitis, not elsewhere classified (principal); M47.812 Spondylosis without myelopathy or radiculopathy, cervical region; Z79.891 Long term (current) use of opiate analgesic

== ENCOUNTER → 2020-03-26 | Outpatient (CLI) | payer MEDICARE, MEDICAID | LOC: M LABSMTC 11:11 | PROVIDERS: ATTEND Anesthesiology | DX: Z01.812 Encounter for preprocedural laboratory examination (principal); Z20.828 Contact with and (suspected) exposure to other viral communicable diseases | CPT/HCPCS: C9803; G0463; U0003 ==

== ENCOUNTER → 2020-03-31 | Outpatient (CLI) | payer MEDICARE, MEDICAID ==
[~2020-03-31] MED LIST changes: +BUPIVACAINE HCL 0.25% 30ML VIAL As Ordered ONE; +ISOVUE-M 300 61% 15ML VIAL As Ordered ONE; +LIDOCAINE 1% SDV 30ML VIAL As Ordered ONE; +TRIAMCINOLONE ACETONIDE SUSP 40 MG/ML VIAL (J3301) As Ordered ONE; +diazePAM 5 MG TAB As Ordered ONE; +oxyCODONE 5MG TAB As Ordered ONE
--- NOTE | 2020-04-20 07:23 | REP ---
C-ARM VIEWS CERVICAL SPINE: HISTORY: Pain. FINDINGS: 3 C-arm views of the cervical spine are performed during cervical facet injections by Dr. Santos. [place] are seen along the bilateral cervical facet joints and a small amount of contrast is injected. 55 seconds of fluoroscopy time is utilized. JOHNNIE
== END ==
LOC: M PAIN 13:32
PROVIDERS: ATTEND Anesthesiology
DX: M47.812 Spondylosis without myelopathy or radiculopathy, cervical region (principal)
CPT/HCPCS: 64490; 64491; 77003; G0463; J3301; Q9967

== ENCOUNTER → 2020-03-31 | Outpatient (CLI) | payer MEDICARE, MEDICAID ==
[~2020-03-31] MED LIST changes: -BUPIVACAINE HCL 0.25% 30ML VIAL As Ordered ONE; -ISOVUE-M 300 61% 15ML VIAL As Ordered ONE; -LIDOCAINE 1% SDV 30ML VIAL As Ordered ONE; -TRIAMCINOLONE ACETONIDE SUSP 40 MG/ML VIAL (J3301) As Ordered ONE; -diazePAM 5 MG TAB As Ordered ONE; -oxyCODONE 5MG TAB As Ordered ONE
[2020-03-31 15:25] LABS: BLOOD UREA NITROGEN 20 MG/DL (7-18); CALCIUM LEVEL 8.6 MG/DL (8.5-10.1); CARBON DIOXIDE LEVEL 25 MEQ/L (21-32); CHLORIDE LEVEL 109 MEQ/L (98-107); CREATININE FOR GFR 0.99 MG/DL (0.55-1.30); GLOMERULAR FILTRATION RATE > 60.0 (>58); GLUCOSE, FASTING 147 MG/DL (70-100); MAGNESIUM LEVEL 1.8 MG/DL (1.8-2.4); SODIUM LEVEL 142 MEQ/L (136-145)
== END ==
LOC: M LAB 13:07
PROVIDERS: ATTEND Family Medicine
DX: R61 Generalized hyperhidrosis (principal)

== ENCOUNTER → 2020-04-19 | Outpatient (CLI) | payer MEDICARE, MEDICAID | LOC: M PAIN 13:01 | PROVIDERS: ATTEND Nurse Practitioner Family | DX: M47.812 Spondylosis without myelopathy or radiculopathy, cervical region (principal) ==

== ENCOUNTER → 2020-06-14 | Outpatient (CLI) | payer MEDICARE, MEDICAID ==
--- NOTE | 2020-06-22 02:14 | ECWPNPC ---
PATIENT NAME: DEEDEE SHEARER : 1975 GENDER: FEMALE VISIT DATE: 06/14/2020 DISCHARGE DATE: 06/14/20 1420 VISIT LOCKED DATE TIME: PHYSICIAN: STARLA CHEATHAM PHYSICIAN PAGER NO: ACTIVE RESOURCE: STARLA CHEATHAM REASON FOR APPOINTMENT 1. FOLLOW-UP HISTORY OF PRESENT ILLNESS GENERAL: HERE FOR POST PROCEDURE FOLLOW-UP. HAD C3-4 CERVICAL FACET BLOCKS ON 03/31/2020. CONTINUES TO DO WELL POST PROCEDURE. FINDS CURRENT CHRONIC PAIN MEDICATION EFFECTIVE AT REDUCING PAIN AND KEEPING HER FUNCTIONAL. DENIES ADVERSE SIDE EFFECTS. -. FALL RISK SCREENING: SCREENING :ONE FALL WITHOUT INJURY IN THE PAST YEAR PAIN SCREENING: PATIENT HAS A COMPLAINT OF ACUTE OR CHRONIC PAIN :YES LOCATION OF PAIN:HEAD INTENSITY OF PAIN (SCALE OF 1 TO 10):4 WHAT DOES YOUR PAIN FEEL LIKE: PT CAN'T DESCRIBE DURATION:CONTINOUS, CONSTANT PAIN IS INCREASED BY:ACTIVITIES PAIN IS DECREASED BY:USE OF PAIN MEDICATIONS TREATMENT/MEDICATIONS USED TO MANAGE PAIN: [id number] INJECTION INTRAMUSCULAR LEVEL OF RELIEF FROM PAIN TREATMENTS IN THE PAST:50% PAIN HAS INTERFERED WITH THE FOLLOWING:BATHING/DRESSING, WALKING ABILITY, HOUSEWORK, SLEEP, TRANSPORTATION, TOILETING NURSING NOTE: -. PAIN CENTER INTAKE QUESTIONS: DO YOU HAVE A HISTORY OF MRSA? :NO DO YOU TAKE A BLOOD THINNERS? :NO DO YOU HAVE ANY BLEEDING DISORDERS? :NO ANY NEW NUMBNESS OR WEAKNESS IN YOUR LEGS OR ARMS? :NO ANY PACEMAKER,DEFIBRILLATOR, OR DORSAL COLUMN STIMULATOR? :NO DO YOU HAVE ANY RASHES OR OPEN SORES? :NO ARE YOU ALLERGIC TO IV DYE? :NO ARE YOU DIABETIC? :NO ANY NEW PROBLEMS WITH YOUR MEDICATIONS? :NO HAVE YOU RECEIVED A VACCINE IN THE PAST 30 DAYS? :NO DO YOU PLAN TO RECEIVE A VACCINE IN THE NEXT 21 DAYS? :NO DO YOU NEED ANY PRESCRIPTION? :YES OXY, CYCLOBENZAPRINE, MOBIC DO YOU TAKE ANY IMMUNOSUPPRESSIVE MEDICATIONS? :NO IS THERE A CHANCE YOU COULD BE ? :NO ARE YOU BREAST FEEDING? :NO CURRENT MEDICATIONS TAKING OXYBUTYNIN CHLORIDE ER 5 MG TAKE 1 TABLET BY MOUTH EVERY DAY TAKING ALBUTEROL SULFATE HFA 108 (90 BASE) MCG/ACT AEROSOL SOLUTION 2 PUFFS NEEDED INHALATION EVERY 4 HRS PRN SOB/WHEEZING TAKING EMGALITY 120 MG/ML SOLUTION AUTO-INJECTOR DIRECTED SUBCUTANEOUS MONTHLY TAKING VERAPAMIL HCL ER 180 MG TABLET EXTENDED RELEASE 1 TABLET ORALLY TWICE A DAY TAKING PROMETHAZINE HCL 25 MG TABLET 1 TABLET NEEDED ORALLY EVERY 12 HRS PRN NAUSEA TAKING ALAVERT ALLERGY/SINUS 5-120 MG TABLET EXTENDED RELEASE 12 HOUR 1 TABLET NEEDED ORALLY EVERY 12 HRS TAKING VITAMIN C ER 1000 MG TABLET EXTENDED RELEASE 1 TABLET ORALLY ONCE A DAY TAKING SENOKOT S THREE TIMES A DAY TAKING VITAMIN D3 2000 UNIT CAPSULE 2 CAPSULES ORALLY ONCE A DAY TAKING FERROUS SULFATE 325 MG CAPSULE 1300 MG ORALLY TWICE A DAY TAKING PROCTOZONE-HC 2.5 % CREAM 1 APPLICATION TO AFFECTED AREA RECTAL TWICE A DAY NEEDED TAKING ATORVASTATIN CALCIUM 40 MG TABLET 1 TABLET ORALLY DAILY TAKING PANTOPRAZOLE SODIUM 40 MG TABLET DELAYED RELEASE TAKE 1 TABLET BY MOUTH TWICE A DAY TAKING SPIRONOLACTONE 50 MG TABLET 1 TABLET ORALLY ONCE A DAY TAKING E-Z SPACER 1 SPACER ICD10: J44.9 DIRECTED WITH PRN ALBUTEROL INHALER TAKING MOBIC 15 MG TABLET 1 TABLET ORALLY ONCE A DAY NEEDED TAKING CYCLOBENZAPRINE HCL 10 MG TABLET 1 TAB ORALLY BID FOR SEVERE MUSCLE SPASM TAKING OXYCODONE HCL 10 MG TABLET 1 TABLET ORALLY Q12H BID MDD2 TAKING TRIAMCINOLONE ACETONIDE 0.1 % CREAM 1 APPLICATION EXTERNALLY TWO TIMES A WEEK TAKING OMEPRAZOLE 20 MG CAPSULE DELAYED RELEASE 1 CAPSULE 30 MINUTES BEFORE MORNING MEAL ORALLY ONCE A DAY TAKING BACLOFEN 10 MG TABLET 1 TABLET WITH FOOD OR MILK ORALLY FOUR TIMES A DAY TAKING TIZANIDINE HCL 4 MG TABLET 1 TABLET NEEDED ORALLY THREE TIMES A DAY NOT-TAKING EMGALITY 120 MG/ML SOLUTION AUTO-INJECTOR DIRECTED SUBCUTANEOUS NOT-TAKING ZOLMITRIPTAN 5 MG TABLET 1 TABLET ORALLY ONCE A DAY NEEDED NOT-TAKING LYRICA 200 MG CAPSULE 1 CAPSULE 1 TO 3 HOURS BEFORE BEDTIME ORALLY THREE TIMES DAILY NOT-TAKING OXYBUTYNIN CHLORIDE ER 5 MG TABLET EXTENDED RELEASE 24 HOUR TAKE 1 TABLET BY MOUTH EVERY DAY ORALLY ONCE A DAY MEDICATION LIST REVIEWED AND RECONCILED WITH THE PATIENT PAST MEDICAL HISTORY GERD DDD, HERNIATED DISCS, SPINE ARTHRITIS COPD PER PATIENT CHRONIC MIGRAINES HX RIGHT ANKLE FX, LEFT FOOT FX, COCCYX FX R KNEE SCAR TISSUE OBESITY PCOS, HIRSUTISM HYPERLIPIDEMIA RESTLESS LEGS SYNDROME IRON DEFICIENCY ANEMIA CHRONIC FATIGUE IRREGULAR HEAVY MENSES ENDOMETRIOSIS INTERSTITIAL CYSTITIS REPORTED HISTORY OF COLONIC POLYPS ELEVATED 24 HR CORTISOL- SAW DR. GOMEZ, NO ADRENAL INSUFFICIENCY OCCIPITAL NEURALGIA CHRONIC PAIN DUE TO TRAUMA MYALGIA CONSTIPATION TUMOR UTERUS CHRONIC BACK AND NECK PAIN ALLERGIES TYLENOL: FEVER - ALLERGY ZANTAC: NUMBNESS ANDTINGLING IN HANDS AND SWOLLEN LIPS - ALLERGY HYDROCODONE-ACETAMINOPHEN: FEVER ,NAUSEA - ALLERGY PENICILLIN (FOR ALLERGIES USE ONLY): YEAST INFECTION - SIDE EFFECTS VENOFER: JOINT SWELLING - ALLERGY BANDAIDS/ADHESIVES: RASH - ALLERGY SURGICAL HISTORY TONSILLECTOMY 1990 APPENDECTOMY 1977 R KNEE FX 2002 R ANKLE FX 2016 DIAGNOSTIC LAPAROSCOPY WITH REMOVAL OF SCAR TISSUE 2011 COLONOSCOPY/ ENDOSCOPY 09/26/2018 RIGHT ANKLE HARDWARE REMOVED 10/2018 TOOTH EXTRACTION 1998 GALLBLADDER REMOVAL 04/2019 UTERINE TUMOR REMOVAL 04/2019 ENDOSCOPE 11/2019 FAMILY HISTORY FATHER: , PANCREATITIS MOTHER: , EMPHYSEMA, ASTHMA SIBLINGS: ALIVE, SISTER JAYLA, STAGE 3A LUNG CANCER, SISTER OCTOBER HAS LEUKEMIA, SISTER YEIMI IS FROM UTERINE WITH METS TO LUNGS, LIVER, KIDNEYS; SISTER SUNDAY HAD CERVICAL CA; BROTHER ALYSSA HAS PROSTATE CA 3 BROTHER(S) , 7 SISTER(S) - HEALTHY. SOCIAL HISTORY GENERAL: TOBACCO USE ARE YOU A:NONSMOKER NEVER SMOKER LATEX QUESTIONNAIRE LATEX ALLERGY : HAVE YOU EVER DEVELOPED ANY TYPE OF REACTION AFTER HANDLING LATEX PRODUCTS SUCH RUBBER GLOVES, CONDOMS, DIAPHRAGMS, BALLOONS, SOCKS, OR UNDERWEAR?YES LATEX ALLERGY : HAVE YOU EVER DEVELOPED ANY TYPE OF REACTION DURING OR AFTER DENTAL APPOINTMENT, VAGINAL/RECTAL EXAMINATION, SURGICAL PROCEDURE, OR ANY OTHER EXPOSURE?NO - PLEASE INDICATE :OTHER (DOCUMENT IN NOTES) SOME BANDAIDS DATE ASKED : 02/12/2020 LATEX RISK : HAVE YOU EVER HAD ANY DIFFICULTY BREATHING OR HIVES AFTER EATING OR HANDLING ANY FRUITS, OR VEGETABLES; SUCH KIWI, BANANAS, STONE FRUITS, OR CHESTNUTSNO LATEX RISK : DO YOU HAVE A PREVIOUS PERSONAL HISTORY OF MORE THAN NINE SURGERIES, SPINA BIFIDA, OR REPEATED CATHERIZATIONS? NO LATEX RISK : ARE YOU FREQUENTLY EXPOSED TO LATEX PRODUCTS IN YOUR OCCUPATION?NO ALCOHOL SCREENING DID YOU HAVE A DRINK CONTAINING ALCOHOL IN THE PAST YEAR?NO POINTS0 INTERPRETATIONNEGATIVE RECREATIONAL DRUG USE DRUG USE?NO CAFFEINE CAFFEINE USE?NO SEXUAL HX HAD SEX IN THE LAST 12 MONTHS (VAGINAL, ORAL, OR ANAL)?NO HAVE YOU EVER HAD AN STD?NO HIV / HEP-C SCREENING HIV TEST OFFERED TO PATIENT:YES DATE OFFERED:08/01/2017 TEST ACCEPTED:NO HEP-C TEST OFFERED TO PATIENT:NO REASON:PATIENT DECLINED BROCHURE PROVIDED TO PATIENTYES ANABAPTIST [id number] NONE OTHER LANGUAGE LANGUAGES SPOKEN:ARMENIAN EDUCATION LEVEL OF EDUCATION:COLLEGE LEARNING BARRIERS / SPECIAL NEEDS BARRIERS TO LEARNING?NO HEARING IMPAIRED?NO VISION IMPAIRED?NO COGNITIVELY IMPAIRED?NO READINESS TO LEARN?YES LEARNING PREFERENCES?YES :DEMONSTRATION/VERBAL INSTRUCTION LEARNING CAPABILITIES PRESENT?YES EMOTIONAL BARRIERS?NO SPECIAL DEVICES?NO SENIOR LINUX UNIX ADMINISTRATOR NEEDED?NO DOMESTIC VIOLENCE DO YOU FEEL SAFE IN YOUR ENVIRONMENT?NO OCCUPATION: UNEMPLOYED. DIET: NO MSG ,GLUTEN FREE. EXERCISE: NONE. MARITAL STATUS: SINGLE. OTHERS AT HOME: SIBLING, IN-LAW(S). PAIN CLINIC PFS, CLERGY, PUBLIC HEALTH REFERRALS WAS THE PROVIDER NOTIFIED OF ANY PERTINENT INFO?YES HAS THE PATIENT BEEN EDUCATED REGARDING HIS/HER PLAN OF CARE?YES HAS THE PATIENT BEEN EDUCATED REGARDING PAIN, THE RISK FOR PAIN, THE IMPORTANCE OF EFFECTIVE PAIN MANAGEMENT, AND THE PAIN ASSESSMENT PROCESS?YES ADVANCE DIRECTIVE ADVANCE DIRECTIVE DISCUSSED WITH PATIENT:YES HAS HCP- MALGORZATA VELASCO [phone] HOSPITALIZATION/MAJOR DIAGNOSTIC PROCEDURE ABOVE SURGERIES REVIEW OF SYSTEMS CONSTITUTIONAL: ANY RECENT FEVER NO . CHILLS NO . WEIGHT CHANGE OF UNKNOWN REASONS NO . GASTROENTEROLOGY: NEW UNEXPLAINABLE CHANGES IN BOWEL CONTROL NO . CONSTIPATION NO . GENITOURINARY: ANY NEW CHANGE IN BLADDER CONTROL? NO . NEUROLOGY: NEW ONSET DIZZINESS OR NEUROLOGICAL CHANGES NOT MENTIONED NO . NEW NUMBNESS OR PAIN PATTERNS NOT MENTIONED AND PERTINENT TO TODAY'S VISIT NO . CARDIOLOGY: NEW CHEST PRESSURE NO . NEW CHEST PAIN NO . RESPIRATORY: UNEXPLAINABLE COUGH NO . NEW SHORTNESS OF BREATH NO . VITAL SIGNS WT 220.4 LBS, HT 60 IN, BMI 43.04 INDEX, BP 122/83 MM HG, HR 117 /MIN, RR 18 /MIN, TEMP 96.4 F, OXYGEN SAT % 97%, NA INITIALS SC 13:40. EXAMINATION GENERAL EXAMINATION: GENERALAWAKE,ALERT ,PLEASANT . PSYCHAFFECT NORMAL . LUNGS:LUNG QUINTERO ARE CLEAR TO AUSCULTATION BILATERALLY. GOOD MOVEMENT OF AIR . HEART:S1, S2 IN A REGULAR RATE AND RHYTHM. NO SIGNIFICANT MURMURS, RUBS OR GALLOPS NOTED . ASSESSMENTS SACROILIITIS - M46.1 (PRIMARY) SPONDYLOSIS OF CERVICAL REGION WITHOUT MYELOPATHY OR RADICULOPATHY - M47.812 TREATMENT SACROILIITIS REFILL CYCLOBENZAPRINE HCL TABLET, 10 MG, 1 TAB, ORALLY, BID FOR SEVERE MUSCLE SPASM, 30 DAYS, 60, REFILLS 2 STOP BACLOFEN TABLET, 10 MG, 1 TABLET WITH FOOD OR MILK, ORALLY, FOUR TIMES A DAY CONTINUE TIZANIDINE HCL TABLET, 4 MG, 1 TABLET NEEDED, ORALLY, 1 TAB AT HS, 30 DAYS, 30, REFILLS 2 REFILL MOBIC TABLET, 15 MG, 1 TABLET, ORALLY, ONCE A DAY NEEDED, 30 DAYS, 30, REFILLS 2 START OXYCODONE HCL TABLET, 10 MG, 1 TABLET NEEDED, ORALLY, Q12H PRN MDD2, 30 DAYS, 60, REFILLS 0 NOTES: ISTOP REGISTRY REVIEWED AND DEMONSTRATES COMPLLIANCE. BRINGS IN MEDICATIONS WHICH IS APPROPRIATE FOR WHAT WAS DISPENSED. RECENT URINE TOXICOLOGY REVIEWED. NO UNAUTHORIZED MEDICATIONS. NO ILLICIT SUBSTANCES AND PRESCRIBED MEDICATIONS WERE PRESENT. , RISKS OF NARCOTIC/OPIOD MEDICATIONS INCLUDES BUT IS NOT LIMITED TO RISK OF DEPENDANCE/DEVELOPMENT OF ADDICTION, MOOD DISTURBANCE AND DEPRESSION, OSTEOPOROSIS, HORMONAL AND LABIDAL CHANGES, RESPIRATORY DEPRESSION AND . PATIENT IS ADVISED NOT TO DRIVE OR DRINK ALCOHOL WHILE ON THESE MEDICATIONS. PROCEDURE CODES FA211 ESTABILISHED PATIENT [facility] CHARGE DISPOSITION & COMMUNICATION FOLLOW UP 3 MONTHS (REASON: MED MGMNT/UTOX) ELECTRONICALLY SIGNED BY BRYANT MIXON ON 06/21/2020 AT 12:37 PM EST DISCLAIMER : THIS IS A VISIT SUMMARY EXTRACTED FROM THE [employer] CHART. IT IS NOT A COPY OF THE [employer] PROGRESS NOTE. JOHNNIE
== END ==
LOC: M PAIN 13:30
PROVIDERS: ATTEND Nurse Practitioner Family
DX: M46.1 Sacroiliitis, not elsewhere classified (principal); M47.812 Spondylosis without myelopathy or radiculopathy, cervical region; K21.9 Gastro-esophageal reflux disease without esophagitis; G43.909 Migraine, unspecified, not intractable, without status migrainosus; G25.81 Restless legs syndrome; D50.9 Iron deficiency anemia, unspecified; M79.10 Myalgia, unspecified site; Z88.0 Allergy status to penicillin; Z88.5 Allergy status to narcotic agent; Z88.8 Allergy status to other drugs, medicaments and biological substances; Z91.09 Other allergy status, other than to drugs and biological substances; E66.01 Morbid (severe) obesity due to excess calories; Z68.41 Body mass index [BMI] 40.0-44.9, adult; Z79.891 Long term (current) use of opiate analgesic; Z79.899 Other long term (current) drug therapy

== ENCOUNTER → 2020-09-16 | Outpatient (CLI) | payer MEDICARE, MEDICAID ==
--- NOTE | 2020-09-21 00:18 | ECWPNPC ---
PATIENT NAME: DEEDEE SHEARER : 1975 GENDER: FEMALE VISIT DATE: 09/16/2020 DISCHARGE DATE: 09/16/20 1109 VISIT LOCKED DATE TIME: PHYSICIAN: STARLA CHEATHAM PHYSICIAN PAGER NO: ACTIVE RESOURCE: STARLA CHEATHAM REASON FOR APPOINTMENT 1. BACK/NECKMED MGMNT/UTOX HISTORY OF PRESENT ILLNESS DEPRESSION SCREENING: PHQ-2 (2015 EDITION) LITTLE INTEREST OR PLEASURE IN DOING THINGS?SEVERAL DAYS FEELING DOWN, DEPRESSED, OR HOPELESS?NOT AT ALL TOTAL SCORE1 GENERAL: HERE FOR F/U OF CHRONIC NECK AND LOW BACK PAIN.STATES LOW BACK PAIN HAS RETURNED.HAS RESPONDED WELL TO LUMBAR THERAPEUTIC FACET BLOCKS IN THE PAST.-. FALL RISK SCREENING: SCREENING :NO FALLS REPORTED IN THE LAST YEAR PAIN SCREENING: PATIENT HAS A COMPLAINT OF ACUTE OR CHRONIC PAIN :YES LOCATION OF PAIN:NECK, LOW BACK INTENSITY OF PAIN (SCALE OF 1 TO 10):8 WHAT DOES YOUR PAIN FEEL LIKE:ACHING, CONTINOUS, SHARP, TENDER DURATION:CONTINOUS, CONSTANT, ALL DAY PAIN IS INCREASED BY:ACTIVITIES PAIN IS DECREASED BY:USE OF PAIN MEDICATIONS NURSING NOTE: -. PAIN CENTER INTAKE QUESTIONS: DO YOU HAVE A HISTORY OF MRSA? :NO DO YOU TAKE A BLOOD THINNERS? :NO DO YOU HAVE ANY BLEEDING DISORDERS? :NO ANY NEW NUMBNESS OR WEAKNESS IN YOUR LEGS OR ARMS? :NO SHARP PAIN IN RIGHT LEG ANY PACEMAKER,DEFIBRILLATOR, OR DORSAL COLUMN STIMULATOR? :NO DO YOU HAVE ANY RASHES OR OPEN SORES? :NO ARE YOU ALLERGIC TO IV DYE? :NO ARE YOU DIABETIC? :NO ANY NEW PROBLEMS WITH YOUR MEDICATIONS? :NO HAVE YOU RECEIVED A VACCINE IN THE PAST 30 DAYS? :NO DO YOU PLAN TO RECEIVE A VACCINE IN THE NEXT 21 DAYS? :NO DO YOU NEED ANY PRESCRIPTION? :YES OXY DO YOU TAKE ANY IMMUNOSUPPRESSIVE MEDICATIONS? :NO IS THERE A CHANCE YOU COULD BE ? :NO ARE YOU BREAST FEEDING? :NO CURRENT MEDICATIONS TAKING OXYBUTYNIN CHLORIDE ER 5 MG TAKE 1 TABLET BY MOUTH EVERY DAY TAKING ALBUTEROL SULFATE HFA 108 (90 BASE) MCG/ACT AEROSOL SOLUTION 2 PUFFS NEEDED INHALATION EVERY 4 HRS PRN SOB/WHEEZING TAKING EMGALITY 120 MG/ML SOLUTION AUTO-INJECTOR DIRECTED SUBCUTANEOUS MONTHLY TAKING PROMETHAZINE HCL 25 MG TABLET 1 TABLET NEEDED ORALLY EVERY 12 HRS PRN NAUSEA TAKING ALAVERT ALLERGY/SINUS 5-120 MG TABLET EXTENDED RELEASE 12 HOUR 1 TABLET NEEDED ORALLY EVERY 12 HRS TAKING VITAMIN C ER 1000 MG TABLET EXTENDED RELEASE 1 TABLET ORALLY ONCE A DAY TAKING SENOKOT S THREE TIMES A DAY TAKING VITAMIN D3 2000 UNIT CAPSULE 2 CAPSULES ORALLY ONCE A DAY TAKING FERROUS SULFATE 325 MG CAPSULE 1300 MG ORALLY TWICE A DAY TAKING PROCTOZONE-HC 2.5 % CREAM 1 APPLICATION TO AFFECTED AREA RECTAL TWICE A DAY NEEDED TAKING E-Z SPACER 1 SPACER ICD10: J44.9 DIRECTED WITH PRN ALBUTEROL INHALER TAKING OXYCODONE HCL 10 MG TABLET 1 TABLET ORALLY Q12H BID MDD2 TAKING TRIAMCINOLONE ACETONIDE 0.1 % CREAM 1 APPLICATION EXTERNALLY TWO TIMES A WEEK TAKING OMEPRAZOLE 40 MG CAPSULE DELAYED RELEASE 1 CAPSULE 30 MINUTES BEFORE MORNING MEAL ORALLY ONCE A DAY TAKING TIZANIDINE HCL 4 MG TABLET 1 TABLET NEEDED ORALLY 1 TAB AT HS TAKING SPIRONOLACTONE 100 MG TABLET TAKE 1 TABLET BY MOUTH EVERY DAY TAKING ATORVASTATIN CALCIUM 40 MG TABLET TAKE 1 TABLET BY MOUTH EVERY DAY TAKING MOBIC 15 MG TABLET 1 TABLET ORALLY ONCE A DAY NEEDED TAKING CYCLOBENZAPRINE HCL 10 MG TABLET 1 TAB ORALLY BID FOR SEVERE MUSCLE SPASM TAKING DIHYDROERGOTAMINE MESYLATE 1 MG/ML SOLUTION 1 ML EVERY HOUR NEEDED INJECTION TWICE A DAY TAKING UBRELVY 100 MG TABLET 1 TABLET MAY TAKE SECOND DOSE AT LEAST 2 HOURS AFTER FIRST DOSE NEEDED ORALLY ONCE A DAY NOT-TAKING OXYCODONE HCL 10 MG TABLET 1 TABLET NEEDED ORALLY Q12H PRN MDD2 NOT-TAKING EMGALITY 120 MG/ML SOLUTION AUTO-INJECTOR DIRECTED SUBCUTANEOUS NOT-TAKING ZOLMITRIPTAN 5 MG TABLET 1 TABLET ORALLY ONCE A DAY NEEDED NOT-TAKING LYRICA 200 MG CAPSULE 1 CAPSULE 1 TO 3 HOURS BEFORE BEDTIME ORALLY THREE TIMES DAILY NOT-TAKING OXYBUTYNIN CHLORIDE ER 5 MG TABLET EXTENDED RELEASE 24 HOUR TAKE 1 TABLET BY MOUTH EVERY DAY ORALLY ONCE A DAY NOT-TAKING VERAPAMIL HCL ER 180 MG TABLET EXTENDED RELEASE 1 TABLET ORALLY TWICE A DAY NOT-TAKING PANTOPRAZOLE SODIUM 40 MG TABLET DELAYED RELEASE TAKE 1 TABLET BY MOUTH TWICE A DAY NOT-TAKING SPIRONOLACTONE 50 MG TABLET 1 TABLET ORALLY ONCE A DAY MEDICATION LIST REVIEWED AND RECONCILED WITH THE PATIENT PAST MEDICAL HISTORY GERD DDD, HERNIATED DISCS, SPINE ARTHRITIS COPD PER PATIENT CHRONIC MIGRAINES HX RIGHT ANKLE FX, LEFT FOOT FX, COCCYX FX R KNEE SCAR TISSUE OBESITY PCOS, HIRSUTISM HYPERLIPIDEMIA RESTLESS LEGS SYNDROME IRON DEFICIENCY ANEMIA CHRONIC FATIGUE IRREGULAR HEAVY MENSES ENDOMETRIOSIS INTERSTITIAL CYSTITIS REPORTED HISTORY OF COLONIC POLYPS ELEVATED 24 HR CORTISOL- SAW DR. GOMEZ, NO ADRENAL INSUFFICIENCY OCCIPITAL NEURALGIA CHRONIC PAIN DUE TO TRAUMA MYALGIA CONSTIPATION TUMOR UTERUS CHRONIC BACK AND NECK PAIN ALLERGIES TYLENOL: FEVER - ALLERGY ZANTAC: NUMBNESS ANDTINGLING IN HANDS AND SWOLLEN LIPS - ALLERGY HYDROCODONE-ACETAMINOPHEN: FEVER ,NAUSEA - ALLERGY PENICILLIN (FOR ALLERGIES USE ONLY): YEAST INFECTION - SIDE EFFECTS VENOFER: JOINT SWELLING - ALLERGY BANDAIDS/ADHESIVES: RASH - ALLERGY SOCIAL HISTORY GENERAL: TOBACCO USE ARE YOU A:NONSMOKER NEVER SMOKER LATEX QUESTIONNAIRE LATEX ALLERGY : HAVE YOU EVER DEVELOPED ANY TYPE OF REACTION AFTER HANDLING LATEX PRODUCTS SUCH RUBBER GLOVES, CONDOMS, DIAPHRAGMS, BALLOONS, SOCKS, OR UNDERWEAR?YES - PLEASE INDICATE :OTHER (DOCUMENT IN NOTES) SOME BANDAIDS LATEX ALLERGY : HAVE YOU EVER DEVELOPED ANY TYPE OF REACTION DURING OR AFTER DENTAL APPOINTMENT, VAGINAL/RECTAL EXAMINATION, SURGICAL PROCEDURE, OR ANY OTHER EXPOSURE?NO LATEX RISK : HAVE YOU EVER HAD ANY DIFFICULTY BREATHING OR HIVES AFTER EATING OR HANDLING ANY FRUITS, OR VEGETABLES; SUCH KIWI, BANANAS, STONE FRUITS, OR CHESTNUTSNO LATEX RISK : DO YOU HAVE A PREVIOUS PERSONAL HISTORY OF MORE THAN NINE SURGERIES, SPINA BIFIDA, OR REPEATED CATHERIZATIONS? NO LATEX RISK : ARE YOU FREQUENTLY EXPOSED TO LATEX PRODUCTS IN YOUR OCCUPATION?NO DATE ASKED : 09/16/2020 ALCOHOL USE: NO. ALCOHOL SCREENING DID YOU HAVE A DRINK CONTAINING ALCOHOL IN THE PAST YEAR?NO POINTS0 INTERPRETATIONNEGATIVE RECREATIONAL DRUG USE DRUG USE?NO CAFFEINE CAFFEINE USE?NO SEXUAL HX HAD SEX IN THE LAST 12 MONTHS (VAGINAL, ORAL, OR ANAL)?NO HAVE YOU EVER HAD AN STD?NO HIV / HEP-C SCREENING HIV TEST OFFERED TO PATIENT:YES DATE OFFERED:08/01/2017 TEST ACCEPTED:NO HEP-C TEST OFFERED TO PATIENT:NO REASON:PATIENT DECLINED BROCHURE PROVIDED TO PATIENTYES JAIN [id number] NONE OTHER LANGUAGE LANGUAGES SPOKEN:[place]IZ[place] OF [place] EDUCATION LEVEL OF EDUCATION:COLLEGE LEARNING BARRIERS / SPECIAL NEEDS CHANGE FROM LAST VISIT?NO BARRIERS TO LEARNING?NO HEARING IMPAIRED?NO VISION IMPAIRED?NO COGNITIVELY IMPAIRED?NO READINESS TO LEARN?YES LEARNING PREFERENCES?YES :DEMONSTRATION/VERBAL INSTRUCTION LEARNING CAPABILITIES PRESENT?YES EMOTIONAL BARRIERS?NO SPECIAL DEVICES?NO MANAGER MATERIAL NEEDED?NO DOMESTIC VIOLENCE DO YOU FEEL SAFE IN YOUR ENVIRONMENT?NO OCCUPATION: UNEMPLOYED. DIET: NO MSG ,GLUTEN FREE. EXERCISE: NONE. MARITAL STATUS: SINGLE. OTHERS AT HOME: [place], IN-LAW(S). - WAS THE PROVIDER NOTIFIED OF ANY PERTINENT INFO?YES HAS THE PATIENT BEEN EDUCATED REGARDING HIS/HER PLAN OF CARE?YES HAS THE PATIENT BEEN EDUCATED REGARDING PAIN, THE RISK FOR PAIN, THE IMPORTANCE OF EFFECTIVE PAIN MANAGEMENT, AND THE PAIN ASSESSMENT PROCESS?YES ADVANCE DIRECTIVE ADVANCE DIRECTIVE DISCUSSED WITH PATIENT:YES HAS HCP- MALGORZATA VELASCO [phone] REVIEW OF SYSTEMS CONSTITUTIONAL: ANY RECENT FEVER NO . CHILLS NO . WEIGHT CHANGE OF UNKNOWN REASONS NO . GASTROENTEROLOGY: NEW UNEXPLAINABLE CHANGES IN BOWEL CONTROL NO . CONSTIPATION NO . GENITOURINARY: ANY NEW CHANGE IN BLADDER CONTROL? NO . NEUROLOGY: NEW ONSET DIZZINESS OR NEUROLOGICAL CHANGES NOT MENTIONED NO . NEW NUMBNESS OR PAIN PATTERNS NOT MENTIONED AND PERTINENT TO TODAY'S VISIT NO . CARDIOLOGY: NEW CHEST PRESSURE NO . PATIENT DENIES NO . RESPIRATORY: UNEXPLAINABLE COUGH NO . NEW SHORTNESS OF BREATH NO . VITAL SIGNS WT 218 LBS, HT 60 IN, BMI 42.57 INDEX, BP 139/94 MM HG, HR 107 /MIN, RR 18 /MIN, TEMP 97.9 F, OXYGEN SAT % 97%, SAFE IN ENV? (Y/N) YES, NA INITIALS CO 10:21T.ALMAZ CASTREJON. EXAMINATION GENERAL EXAMINATION: GENERAL AWAKE,ALERT ,PLEAASANT . PSYCH AFFECT NORMAL . LUNGS: LUNG QUINTERO ARE CLEAR TO AUSCULTATION BILATERALLY. GOOD MOVEMENT OF AIR . HEART: S1, S2 IN A REGULAR RATE AND RHYTHM. NO SIGNIFICANT MURMURS, RUBS OR GALLOPS NOTED . LUMBAR:PALPATION:TENDER OVER BILAT. L4/5-L5/S1 LUMBAR FACETS WITH FACET LOADING.. DIAGNOSTIC TESTS REVIEWED MRI L/S SPINE 2018. ASSESSMENTS SPONDYLOSIS OF LUMBOSACRAL REGION WITHOUT MYELOPATHY OR RADICULOPATHY - M47.817 (PRIMARY) CHRONIC PRESCRIPTION OPIATE USE - Z79.891 TREATMENT SPONDYLOSIS OF LUMBOSACRAL REGION WITHOUT MYELOPATHY OR RADICULOPATHY MEDICATION: OXYCODONE HCL TAB 10MG ORALLY (ORDERED FOR 09/23/2020) MEDICATION: VALIUM TAB 10MG ORALLY (DIAZEPAM) (ORDERED FOR 09/23/2020) NOTES: BILATERAL THERAPEUTIC LUMBAR FACET BLOCK L4/5,L5/S1 PRINTED AND REVIEWED PRE PROCEDURE WITH PATIENT LAUREN CASTREJON. CHRONIC PRESCRIPTION OPIATE USE LAB: URINE TEST GROUP [facility] 09/16/2020 3:51:56 PM > ORDERED PROCEDURE CODES FA211 ESTABILISHED PATIENT [facility] CHARGE DISPOSITION & COMMUNICATION FOLLOW UP POST PROCEDURE (REASON: BILATERAL THERAPEUTIC LUMBAR FACET BLOCK L4/5,L5/S1) ELECTRONICALLY SIGNED BY BRYANT MIXON ON 09/20/2020 AT 07:04 PM EST DISCLAIMER : THIS IS A VISIT SUMMARY EXTRACTED FROM THE [employer] CHART. IT IS NOT A COPY OF THE [employer] PROGRESS NOTE. JOHNNIE
== END ==
LOC: M PAIN 10:30
PROVIDERS: ATTEND Nurse Practitioner Family
DX: M47.817 Spondylosis without myelopathy or radiculopathy, lumbosacral region (principal); G89.29 Other chronic pain; K21.9 Gastro-esophageal reflux disease without esophagitis; G43.909 Migraine, unspecified, not intractable, without status migrainosus; G25.81 Restless legs syndrome; D50.9 Iron deficiency anemia, unspecified; M79.10 Myalgia, unspecified site; Z88.0 Allergy status to penicillin; Z88.5 Allergy status to narcotic agent; Z88.6 Allergy status to analgesic agent; Z88.8 Allergy status to other drugs, medicaments and biological substances; Z91.09 Other allergy status, other than to drugs and biological substances; E66.01 Morbid (severe) obesity due to excess calories; Z68.41 Body mass index [BMI] 40.0-44.9, adult; Z79.891 Long term (current) use of opiate analgesic; Z79.899 Other long term (current) drug therapy

== ENCOUNTER → 2020-09-17 | Outpatient (CLI) | payer MEDICARE, MEDICAID ==
[~2020-09-17] MED LIST changes: +GASTROGRAFIN SOLUTION 30ML (Q9963) As Ordered ONE; +ISOVUE-370 76% 100ML VIAL As Ordered ONE
--- NOTE | 2020-09-17 17:20 | REP ---
INDICATION: UPPER ABD PAIN. COMPARISON: 04/08/2018 TECHNIQUE: Oral Gastrografin mixture per our bowel contrast and 100 mL Isovue 370 given and axial images through the abdomen and pelvis performed and coronal and sagittal reconstructions provided. FINDINGS: CT abdomen: The lung bases are clear. Heart size not enlarged. There is no pericardial thickening or effusion nor hiatal hernia. Slight elevation of the right diaphragm. There is no hepatomegaly, splenomegaly, focal hepatic or splenic lesion, intrahepatic biliary dilatation nor adjacent ascites. Gallbladder surgically absent. No calcifications in the common duct seen. Pancreas unremarkable. Adrenal glands are normal. Kidneys show symmetric enhancement without mass, stone, hydronephrosis or cyst. Ureters show normal course the bladder without dilatation or stone. The aorta is without aneurysm or dissection. No periaortic, mesenteric or other retroperitoneal pathologic sized lymphadenopathy. Small bowel loops are grossly unremarkable. Oral contrast reaches the terminal ileum. There is stool scattered throughout the colon. There are few scattered diverticula in the right colon, transverse and left colon without signs of colitis or diverticulitis in the abdomen proper. Lung window review shows no perforation or free air in the abdomen or pelvis. No ascites. There is no ventral hernia. The bone windows show degenerative disc changes and vacuum phenomena at L5-S1 with disc space narrowing at L4-5. The other disc levels and all vertebral body heights are preserved small marginal osteophytes are noted. Some facet arthropathy lower lumbar spine. The visualized ribs were grossly intact. CT pelvis: Sacrum, iliac bones hips and SI joints without any acute finding distal left colon and sigmoid with diverticulosis but no gross diverticulitis or colitis. There is no ascites in the deep pelvis or free air uterus retroverted slightly tilted towards the left but without gross mass. No adnexal mass or pelvic free fluid. No pelvic or inguinal pathologic sized lymphadenopathy. No inguinal or ventral hernia in the pelvis IMPRESSION: 1. Diverticulosis of the distal left colon and sigmoid without diverticulitis. There is scattered diverticula in the transverse and proximal left colon, likewise without acute process. No evidence of ascites, colitis, perforation or free air. 2. Small bowel loops grossly unremarkable. 3. Appendix absent. No inflammatory changes about the cecum. 4. Upper abdomen shows evidence of cholecystectomy but no acute finding. <Electronically signed by Cory Salas > 09/17/20 0975
== END ==
LOC: M RAD 12:50
PROVIDERS: ATTEND Internal Medicine Gastroenterology
DX: K57.30 Diverticulosis of large intestine without perforation or abscess without bleeding (principal); R10.10 Upper abdominal pain, unspecified; Z11.52 Encounter for screening for COVID-19; Z90.49 Acquired absence of other specified parts of digestive tract
CPT/HCPCS: 74177; Q9963; Q9967; U0003

== ENCOUNTER → 2020-09-17 | Outpatient (CLI) | payer MEDICARE, MEDICAID ==
[~2020-09-17] MED LIST changes: -GASTROGRAFIN SOLUTION 30ML (Q9963) As Ordered ONE; -ISOVUE-370 76% 100ML VIAL As Ordered ONE
== END ==
LOC: M LABSMTC 12:23
PROVIDERS: ATTEND Anesthesiology
DX: Z11.52 Encounter for screening for COVID-19 (principal)

== ENCOUNTER → 2020-09-22 | Outpatient (CLI) | payer MEDICARE, MEDICAID ==
[~2020-09-22] MED LIST changes: +BUPIVACAINE HCL 0.25% 30ML VIAL As Ordered ONE; +ISOVUE-M 300 61% 15ML VIAL As Ordered ONE; +LIDOCAINE 1% SDV 30ML VIAL As Ordered ONE; +TRIAMCINOLONE ACETONIDE SUSP 40 MG/ML VIAL (J3301) As Ordered ONE; +diazePAM 5MG TABLET As Ordered ONE; +oxyCODONE 5MG TAB As Ordered ONE
--- NOTE | 2020-09-22 13:05 | REP ---
INDICATION: BILATERAL LUMBAR THERAPEUTIC FACET BLOCK. COMPARISON: None. TECHNIQUE: Intraoperative fluoroscopic imaging using portable C-arm technique. FINDINGS: Catheters and contrast overlies lumbar facet joints. Total fluoroscopic time 33.5 seconds. IMPRESSION: Images consistent with lumbar facet block. <Electronically signed by Jose Yin > 09/22/20 0080
--- NOTE | 2020-09-23 23:32 | ECWPNPC ---
PATIENT NAME: DEEDEE SHEARER : 1975 GENDER: FEMALE VISIT DATE: 09/22/2020 DISCHARGE DATE: 09/22/20 1306 VISIT LOCKED DATE TIME: PHYSICIAN: DAVID NINO MD PHYSICIAN PAGER NO: ACTIVE RESOURCE: DAVID NINO MD REASON FOR APPOINTMENT 1. BILATERAL THERAPEUTIC LUMBAR FACET BLOCK L4-L5, L5-S1 HISTORY OF PRESENT ILLNESS GENERAL: -. FALL RISK SCREENING: SCREENING :ONE FALL WITHOUT INJURY IN THE PAST YEAR PATIENT REPORTS FALL "AWHILE BACK" AND IS HAVING ISSUES BENDING HER KNEE. PAIN SCREENING: PATIENT HAS A COMPLAINT OF ACUTE OR CHRONIC PAIN :YES LOCATION OF PAIN:LOW BACK INTENSITY OF PAIN (SCALE OF 1 TO 10):8 WHAT DOES YOUR PAIN FEEL LIKE:OTHER "PRICKLY, CONSTANT" DURATION:CONTINOUS, AWAKENS FROM SLEEP PAIN IS INCREASED BY:ACTIVITIES, PROLONGED STANDING PAIN IS DECREASED BY:USE OF PAIN MEDICATIONS PLAN/GOALS/TREATMENT/INTERVENTION/FOLLOW UP:SEE PLAN NURSING NOTE: -. PAIN CENTER INTAKE QUESTIONS: DO YOU HAVE A HISTORY OF MRSA? :NO DO YOU TAKE A BLOOD THINNERS? :NO DO YOU HAVE ANY BLEEDING DISORDERS? :NO ANY NEW NUMBNESS OR WEAKNESS IN YOUR LEGS OR ARMS? :NO ANY PACEMAKER,DEFIBRILLATOR, OR DORSAL COLUMN STIMULATOR? :NO DO YOU HAVE ANY RASHES OR OPEN SORES? :NO ARE YOU ALLERGIC TO IV DYE? :NO ARE YOU DIABETIC? :NO ANY NEW PROBLEMS WITH YOUR MEDICATIONS? :NO HAVE YOU RECEIVED A VACCINE IN THE PAST 30 DAYS? :NO DO YOU PLAN TO RECEIVE A VACCINE IN THE NEXT 21 DAYS? :NO DO YOU NEED ANY PRESCRIPTION? :NO DO YOU TAKE ANY IMMUNOSUPPRESSIVE MEDICATIONS? :NO ANY HISTORY OF SEIZURES? :NO ANY HISTORY OF CARDIAC ISSUES OR EVENTS? :NO DO YOU HAVE ANY KIDNEY OR LIVER DISEASE? :NO TESTED EVERY THREE MONTHS BECAUSE OF MEDICATIONS USAGE. DO YOU HAVE SLEEP APNEA? :NO ANY RECENT HEAD INJURY? :NO DO YOU HAVE ANY NEW INFECTIONS? :NO IS THERE A CHANCE YOU COULD BE ? :NO ARE YOU BREAST FEEDING? :NO WHEN DID YOU LAST EAT? : 09/21/2020 1800 WHEN DID YOU LAST DRINK? : 09/22/2020 0800 WHAT DID YOU LAST DRINK? : WATER NAME OF PERSON DRIVING YOU HOME? : VTC DO YOU HAVE ANY OTHER QUESTIONS OR CONCERNS? : NO CURRENT MEDICATIONS TAKING OXYBUTYNIN CHLORIDE ER 5 MG TAKE 1 TABLET BY MOUTH EVERY DAY TAKING ALBUTEROL SULFATE HFA 108 (90 BASE) MCG/ACT AEROSOL SOLUTION 2 PUFFS NEEDED INHALATION EVERY 4 HRS PRN SOB/WHEEZING TAKING EMGALITY 120 MG/ML SOLUTION AUTO-INJECTOR DIRECTED SUBCUTANEOUS MONTHLY TAKING PROMETHAZINE HCL 25 MG TABLET 1 TABLET NEEDED ORALLY EVERY 12 HRS PRN NAUSEA TAKING ALAVERT ALLERGY/SINUS 5-120 MG TABLET EXTENDED RELEASE 12 HOUR 1 TABLET NEEDED ORALLY EVERY 12 HRS TAKING VITAMIN C ER 1000 MG TABLET EXTENDED RELEASE 1 TABLET ORALLY ONCE A DAY TAKING SENOKOT S THREE TIMES A DAY TAKING VITAMIN D3 2000 UNIT CAPSULE 2 CAPSULES ORALLY ONCE A DAY TAKING FERROUS SULFATE 325 MG CAPSULE 1300 MG ORALLY TWICE A DAY TAKING PROCTOZONE-HC 2.5 % CREAM 1 APPLICATION TO AFFECTED AREA RECTAL TWICE A DAY NEEDED TAKING E-Z SPACER 1 SPACER ICD10: J44.9 DIRECTED WITH PRN ALBUTEROL INHALER TAKING TRIAMCINOLONE ACETONIDE 0.1 % CREAM 1 APPLICATION EXTERNALLY TWO TIMES A WEEK TAKING OXYCODONE HCL 10 MG TABLET 1 TABLET ORALLY Q12H BID MDD2, NOTES: 09/21/2020 PM TAKING OMEPRAZOLE 40 MG CAPSULE DELAYED RELEASE 1 CAPSULE 30 MINUTES BEFORE MORNING MEAL ORALLY ONCE A DAY TAKING TIZANIDINE HCL 4 MG TABLET 1 TABLET NEEDED ORALLY 1 TAB AT HS, NOTES: 09/21/2020 PM TAKING SPIRONOLACTONE 100 MG TABLET TAKE 1 TABLET BY MOUTH EVERY DAY TAKING ATORVASTATIN CALCIUM 40 MG TABLET TAKE 1 TABLET BY MOUTH EVERY DAY TAKING MOBIC 15 MG TABLET 1 TABLET ORALLY ONCE A DAY NEEDED, NOTES: 09/21/2020 PM TAKING CYCLOBENZAPRINE HCL 10 MG TABLET 1 TAB ORALLY BID FOR SEVERE MUSCLE SPASM, NOTES: 09/21/2020 PM TAKING DIHYDROERGOTAMINE MESYLATE 1 MG/ML SOLUTION 1 ML EVERY HOUR NEEDED INJECTION TWICE A DAY TAKING UBRELVY 100 MG TABLET 1 TABLET MAY TAKE SECOND DOSE AT LEAST 2 HOURS AFTER FIRST DOSE NEEDED ORALLY ONCE A DAY NOT-TAKING OXYCODONE HCL 10 MG TABLET 1 TABLET NEEDED ORALLY Q12H PRN MDD2 NOT-TAKING EMGALITY 120 MG/ML SOLUTION AUTO-INJECTOR DIRECTED SUBCUTANEOUS NOT-TAKING ZOLMITRIPTAN 5 MG TABLET 1 TABLET ORALLY ONCE A DAY NEEDED NOT-TAKING LYRICA 200 MG CAPSULE 1 CAPSULE 1 TO 3 HOURS BEFORE BEDTIME ORALLY THREE TIMES DAILY NOT-TAKING OXYBUTYNIN CHLORIDE ER 5 MG TABLET EXTENDED RELEASE 24 HOUR TAKE 1 TABLET BY MOUTH EVERY DAY ORALLY ONCE A DAY NOT-TAKING VERAPAMIL HCL ER 180 MG TABLET EXTENDED RELEASE 1 TABLET ORALLY TWICE A DAY NOT-TAKING PANTOPRAZOLE SODIUM 40 MG TABLET DELAYED RELEASE TAKE 1 TABLET BY MOUTH TWICE A DAY NOT-TAKING SPIRONOLACTONE 50 MG TABLET 1 TABLET ORALLY ONCE A DAY MEDICATION LIST REVIEWED AND RECONCILED WITH THE PATIENT PAST MEDICAL HISTORY GERD DDD, HERNIATED DISCS, SPINE ARTHRITIS COPD PER PATIENT CHRONIC MIGRAINES HX RIGHT ANKLE FX, LEFT FOOT FX, COCCYX FX R KNEE SCAR TISSUE OBESITY PCOS, HIRSUTISM HYPERLIPIDEMIA RESTLESS LEGS SYNDROME IRON DEFICIENCY ANEMIA CHRONIC FATIGUE IRREGULAR HEAVY MENSES ENDOMETRIOSIS INTERSTITIAL CYSTITIS REPORTED HISTORY OF COLONIC POLYPS ELEVATED 24 HR CORTISOL- SAW DR. GOMEZ, NO ADRENAL INSUFFICIENCY OCCIPITAL NEURALGIA CHRONIC PAIN DUE TO TRAUMA MYALGIA CONSTIPATION TUMOR UTERUS CHRONIC BACK AND NECK PAIN ALLERGIES TYLENOL: FEVER - ALLERGY ZANTAC: NUMBNESS ANDTINGLING IN HANDS AND SWOLLEN LIPS - ALLERGY HYDROCODONE-ACETAMINOPHEN: FEVER ,NAUSEA - ALLERGY PENICILLIN (FOR ALLERGIES USE ONLY): YEAST INFECTION - SIDE EFFECTS VENOFER: JOINT SWELLING - ALLERGY BANDAIDS/ADHESIVES: RASH - ALLERGY VITAL SIGNS WT 218.0 LBS, HT 60 IN, BMI 42.57 INDEX, BP 131/77 MM HG, HR 132 /MIN, RR 18 /MIN, TEMP 97.0 F, OXYGEN SAT % 96%, SAFE IN ENV? (Y/N) YES, NA INITIALS AW 1109, REVIEWED BY: Marko VELASCO RN. EXAMINATION GENERAL EXAMINATION: THE PATIENT IS ALERT, ORIENTED TIMES THREE AND COOPERATIVE. LUNGS ARE CLEAR TO AUSCULTATION. HEART SHOWS REGULAR RHYTHM, NO MURMURS AND NO GALLOPS. ASSESSMENTS SPONDYLOSIS WITHOUT MYELOPATHY OR RADICULOPATHY, LUMBAR REGION - M47.816 (PRIMARY) SPONDYLOSIS WITHOUT MYELOPATHY OR RADICULOPATHY, LUMBOSACRAL REGION - M47.817 TREATMENT SPONDYLOSIS WITHOUT MYELOPATHY OR RADICULOPATHY, LUMBAR REGION [facility] FACET BLOCK (PAIN)[id number] COMPLETION OF PROCEDURAL VISIT WHEN MEETS CRITERIALANNY CARRIZALES 09/22/2020 1:07:24 PM > CRITERIA MET OTHERS NOTES: PAT COMPLETED 09/21/20 1523 Michael SAM RN BSN. PROCEDURES PAIN NURSING RECORD PROCEDURE IN ROOM 1220, PHYSICIAN IN ROOM 1233, START 1238, FINISH 1247, PHYSICIAN OUT OF ROOM 1250, OUT OF ROOM 1300, ECG NORMAL SINUS, PATIENT SHIELDED YES, SAFETY STRAP YES, PREP CHLOROPREP Yamile CARRIZALES RN BSN, DRESSING TEGADERM DR NINO LOC: 1. ALERT, ORIENTED RESP: 1. REGULAR, NO DYSPNEA COLOR: 1. PINK SKIN: 1. WARM, DRY POSITION: 1. PRONE VITALS: 125/80, 96, 18, 96% LANNY CARRIZALES 09/22/2020 12:30:13 PM > , 123/85, 94, 16, 95%, LANNY CARRIZALES 09/22/2020 12:30:58 PM > 123/81, 92, 18, 96%, LANNY CARRIZALES 09/22/2020 12:45:57 PM > 123/86, 100, 18, 94%, LANNY CARRIZALES 09/22/2020 1:05:26 PM > LOR CARRIZALES RN COMPLETION OF PROCEDURE APPOINTMENT: POST PAIN 6, DRESSING SITE DRY AND INTACT, IV N/A, GAIT STEADY, TEACHING COMPLETED, PATIENT ACKNOWLEDGES UNDERSTANDING YES, PROCEDURE APPOINTMENT COMPLETED AT 1305 PN LUMBAR FACET BLOCK THERAPEUTIC PRE PROCEDURE DIAGNOSIS LUMBAR SPONDYLOSIS, LUMBOSACRAL SPONDYLOSIS POST PROCEDURE DIAGNOSIS LUMBAR SPONDYLOSIS, LUMBOSACRAL SPONDYLOSIS PROCEDURE BILATERAL L4-L5 AND BILATERAL L5-S1 LUMBAR FACET THERAPEUTIC BLOCK SURGEON DR. DAVID NINO INVENTORY PLANNER NONE ANESTHESIA LOCAL PRE PROCEDURE NOTE THE PATIENT HAS A HISTORY OF CHRONIC LOW BACK PAIN. I EVALUATED THE PATIENT AND REVIEWED THE CHART. I WENT OVER THE RISKS, ALTERNATIVES, AND BENEFITS ASSOCIATED WITH THIS PROCEDURE. THE PATIENT WOULD LIKE TO PROCEED AND GIVES CONSENT TO PERFORM THE PROCEDURE. THE PATIENT DENIES UNEXPLAINABLE WEIGHT LOSS, FEVER, CHILLS, OR NEW CHANGES IN URINARY OR BOWEL CONTROL. THE PATIENT IS COVID-19 NEGATIVE DESCRIPTION OF PROCEDURE THE PATIENT WAS BROUGHT TO THE PROCEDURE ROOM AND PLACED IN THE PRONE POSITION. THE LUMBOSACRAL AREA WAS CLEANED WITH CHLORAPREP SOLUTION AND DRAPED ASEPTICALLY. THE PROCEDURE WAS DONE UNDER STERILE CONDITIONS. A TIMEOUT WAS PERFORMED WHERE THE CONSENTED SITE WAS VERIFIED WITH EVERYONE IN THE ROOM. UNDER FLUOROSCOPIC GUIDANCE, THE TARGET POINT WAS SELECTED AT THE RIGHT AND LEFT L4-L5 AND RIGHT AND LEFT L5-S1 FACET JOINTS. TARGET POINT WAS SELECTED AFTER LATERAL ROTATION AND TILT OF THE MAGNIFIER OF THE C-ARM. I CONFIRMED AGAIN THE SITE OF TARGET. LIDOCAINE 0.5% WAS USED TO NUMB THE SKIN AND THE SUBCUTANEOUS TISSUE BELOW IT. SPINAL NEEDLES, 22-GAUGE, WERE ADVANCED UNDER FLUOROSCOPIC GUIDANCE AND FOLLOWING PATIENT FEEDBACK UNTIL THE TARGETS WERE TOUCHED. THE POSITION OF THE NEEDLES WAS VERIFIED WITH AP AND LATERAL VIEWS. AFTER PROPER POSITION OF THE NEEDLES WAS ACHIEVED, ISOVUE-M DYE 30%, 0.1 ML, WAS INJECTED SHOWING ADEQUATE SPREAD OF THE DYE. KENALOG 10 MG WAS INJECTED AT EACH SITE. THEN, A SOLUTION OF 1.0 ML OF BUPIVACAINE 0.125% OF WAS USED TO FLUSH EACH SITE. THE MEDICATION WAS VERIFIED WITH THE NURSE. THERE WAS NO EVIDENCE OF BLOOD, PARESTHESIA OR CEREBROSPINAL FLUID DURING THE PROCEDURE. THE PATIENT WAS SENT TO THE RECOVERY ROOM. THE PATIENT WAS MOVING THE EXTREMITIES AND DOING WELL. THERE WERE NO COMPLICATIONS DURING THE PROCEDURE. ESTIMATED BLOOD LOSS WAS LESS THAN 5 ML. FLUOROSCOPY TIME WAS 33 SECONDS POST PROCEDURE NOTE THE PATIENT WILL BE SEEN IN A FOLLOW UP IN THE NEXT FEW WEEKS. I AM LOOKING FOR LONG LASTING RELIEF FOR THE PATIENT WITH THIS INTERVENTION. INSTRUCTIONS WERE GIVEN, QUESTIONS WERE ANSWERED, AND THE PATIENT EXPRESSED UNDERSTANDING AND AGREES WITH THE PLAN. I, HONEY BARILLAS, DOCUMENTED THE ABOVE INFORMATION ACTING A SCRIBE FOR DR. NINO. I HAVE REVIEWED THE ABOVE DOCUMENT, WRITTEN BY HONEY BARILLAS, ADMINISTRATIVE SUPPORT TECHNICIAN, AND I VERIFY THAT IT IS ACCURATE PROCEDURE CODES 07661 INJ PARAVERT F JNT L/S 1 LEV, MODIFIERS: 50 [id number] INJ PARAVERT F JNT L/S 2 LEV, MODIFIERS: 50 DISPOSITION & COMMUNICATION FOLLOW UP FOLLOW UP WITH BUSINESS INTELLIGENCE REPORTING ANALYST (REASON: POST BILATERAL THERAPEUTIC LUMBAR FACET BLOCK L4-L5, L5-S1) ELECTRONICALLY SIGNED BY DAVID NINO MD, MD ON 09/23/2020 AT 03:58 PM EST DISCLAIMER : THIS IS A VISIT SUMMARY EXTRACTED FROM THE [employer] CHART. IT IS NOT A COPY OF THE [employer] PROGRESS NOTE. JOHNNIE
== END ==
LOC: M PAIN 11:00
PROVIDERS: ATTEND Anesthesiology
DX: M47.816 Spondylosis without myelopathy or radiculopathy, lumbar region (principal); M47.817 Spondylosis without myelopathy or radiculopathy, lumbosacral region; K21.9 Gastro-esophageal reflux disease without esophagitis; G43.909 Migraine, unspecified, not intractable, without status migrainosus; G25.81 Restless legs syndrome; D50.9 Iron deficiency anemia, unspecified; M79.10 Myalgia, unspecified site; Z88.0 Allergy status to penicillin; Z88.5 Allergy status to narcotic agent; Z88.6 Allergy status to analgesic agent; Z88.8 Allergy status to other drugs, medicaments and biological substances; Z91.09 Other allergy status, other than to drugs and biological substances; E66.01 Morbid (severe) obesity due to excess calories; Z68.41 Body mass index [BMI] 40.0-44.9, adult; Z79.891 Long term (current) use of opiate analgesic; Z79.899 Other long term (current) drug therapy
CPT/HCPCS: 64493; 64494; J3301; Q9967

== ENCOUNTER → 2020-09-23 | Outpatient (CLI) | payer MEDICARE, MEDICAID ==
[~2020-09-23] MED LIST changes: -BUPIVACAINE HCL 0.25% 30ML VIAL As Ordered ONE; -ISOVUE-M 300 61% 15ML VIAL As Ordered ONE; -LIDOCAINE 1% SDV 30ML VIAL As Ordered ONE; -TRIAMCINOLONE ACETONIDE SUSP 40 MG/ML VIAL (J3301) As Ordered ONE; -diazePAM 5MG TABLET As Ordered ONE; -oxyCODONE 5MG TAB As Ordered ONE
--- NOTE | 2020-10-01 01:18 | ECWPNPC ---
PATIENT NAME: DEEDEE SHEARER : 1975 GENDER: FEMALE VISIT DATE: 09/23/2020 DISCHARGE DATE: 09/23/20 1408 VISIT LOCKED DATE TIME: PHYSICIAN: STARLA CHEATHAM PHYSICIAN PAGER NO: ACTIVE RESOURCE: STARLA CHEATHAM REASON FOR APPOINTMENT 1. DISCUSS NECK PAIN HISTORY OF PRESENT ILLNESS GENERAL: HERE FOR FOLLOW-UP OF PERSISTENT NECK PAIN AND HEADACHES. PAIN HAS BEEN AGGRAVATED OVER THE PAST FEW MONTHS. PATIENT RESPONDS WELL TO CERVICAL THERAPEUTIC FACET BLOCKS WITH REDUCTION IN NECK PAIN AND INTENSITY OF HEADACHES. REVIEWED MRI OF CERVICAL SPINE AND DISCUSSED TREATMENT PLAN. -. FALL RISK SCREENING: SCREENING : ONE FALL WITHOUT INJURY IN THE PAST YEAR. PAIN SCREENING: PATIENT HAS A COMPLAINT OF ACUTE OR CHRONIC PAIN :YES LOCATION OF PAIN:NECK INTENSITY OF PAIN (SCALE OF 1 TO 10):9 WHAT DOES YOUR PAIN FEEL LIKE:OTHER MAKES FEEL LIKE A 100 POUNDS TRYING TO GET IT OFF THE BED DURATION:CONTINOUS, CONSTANT, ALL DAY PAIN IS INCREASED BY:ACTIVITIES PAIN IS DECREASED BY:USE OF PAIN MEDICATIONS NURSING NOTE: -. PAIN CENTER INTAKE QUESTIONS: DO YOU HAVE A HISTORY OF MRSA? :NO DO YOU TAKE A BLOOD THINNERS? :NO DO YOU HAVE ANY BLEEDING DISORDERS? :NO ANY NEW NUMBNESS OR WEAKNESS IN YOUR LEGS OR ARMS? :NO ANY PACEMAKER,DEFIBRILLATOR, OR DORSAL COLUMN STIMULATOR? :NO DO YOU HAVE ANY RASHES OR OPEN SORES? :NO ARE YOU ALLERGIC TO IV DYE? :NO ARE YOU DIABETIC? :NO ANY NEW PROBLEMS WITH YOUR MEDICATIONS? :NO HAVE YOU RECEIVED A VACCINE IN THE PAST 30 DAYS? :NO DO YOU PLAN TO RECEIVE A VACCINE IN THE NEXT 21 DAYS? :NO DO YOU NEED ANY PRESCRIPTION? :YES OXY DO YOU TAKE ANY IMMUNOSUPPRESSIVE MEDICATIONS? :NO IS THERE A CHANCE YOU COULD BE ? :NO ARE YOU BREAST FEEDING? :NO CURRENT MEDICATIONS TAKING OXYBUTYNIN CHLORIDE ER 5 MG TAKE 1 TABLET BY MOUTH EVERY DAY TAKING ALBUTEROL SULFATE HFA 108 (90 BASE) MCG/ACT AEROSOL SOLUTION 2 PUFFS NEEDED INHALATION EVERY 4 HRS PRN SOB/WHEEZING TAKING EMGALITY 120 MG/ML SOLUTION AUTO-INJECTOR DIRECTED SUBCUTANEOUS MONTHLY TAKING PROMETHAZINE HCL 25 MG TABLET 1 TABLET NEEDED ORALLY EVERY 12 HRS PRN NAUSEA TAKING ALAVERT ALLERGY/SINUS 5-120 MG TABLET EXTENDED RELEASE 12 HOUR 1 TABLET NEEDED ORALLY EVERY 12 HRS TAKING VITAMIN C ER 1000 MG TABLET EXTENDED RELEASE 1 TABLET ORALLY ONCE A DAY TAKING SENOKOT S THREE TIMES A DAY TAKING VITAMIN D3 2000 UNIT CAPSULE 2 CAPSULES ORALLY ONCE A DAY TAKING FERROUS SULFATE 325 MG CAPSULE 1300 MG ORALLY TWICE A DAY TAKING PROCTOZONE-HC 2.5 % CREAM 1 APPLICATION TO AFFECTED AREA RECTAL TWICE A DAY NEEDED TAKING E-Z SPACER 1 SPACER ICD10: J44.9 DIRECTED WITH PRN ALBUTEROL INHALER TAKING TRIAMCINOLONE ACETONIDE 0.1 % CREAM 1 APPLICATION EXTERNALLY TWO TIMES A WEEK TAKING OMEPRAZOLE 40 MG CAPSULE DELAYED RELEASE 1 CAPSULE 30 MINUTES BEFORE MORNING MEAL ORALLY ONCE A DAY TAKING TIZANIDINE HCL 4 MG TABLET 1 TABLET NEEDED ORALLY 1 TAB AT HS TAKING SPIRONOLACTONE 100 MG TABLET TAKE 1 TABLET BY MOUTH EVERY DAY TAKING ATORVASTATIN CALCIUM 40 MG TABLET TAKE 1 TABLET BY MOUTH EVERY DAY TAKING MOBIC 15 MG TABLET 1 TABLET ORALLY ONCE A DAY NEEDED TAKING CYCLOBENZAPRINE HCL 10 MG TABLET 1 TAB ORALLY BID FOR SEVERE MUSCLE SPASM TAKING DIHYDROERGOTAMINE MESYLATE 1 MG/ML SOLUTION 1 ML EVERY HOUR NEEDED INJECTION TWICE A DAY TAKING UBRELVY 100 MG TABLET 1 TABLET MAY TAKE SECOND DOSE AT LEAST 2 HOURS AFTER FIRST DOSE NEEDED ORALLY ONCE A DAY TAKING OXYCODONE HCL 10 MG TABLET 1 TABLET ORALLY Q12H BID MDD2 NOT-TAKING OXYCODONE HCL 10 MG TABLET 1 TABLET NEEDED ORALLY Q12H PRN MDD2 NOT-TAKING EMGALITY 120 MG/ML SOLUTION AUTO-INJECTOR DIRECTED SUBCUTANEOUS NOT-TAKING ZOLMITRIPTAN 5 MG TABLET 1 TABLET ORALLY ONCE A DAY NEEDED NOT-TAKING LYRICA 200 MG CAPSULE 1 CAPSULE 1 TO 3 HOURS BEFORE BEDTIME ORALLY THREE TIMES DAILY NOT-TAKING OXYBUTYNIN CHLORIDE ER 5 MG TABLET EXTENDED RELEASE 24 HOUR TAKE 1 TABLET BY MOUTH EVERY DAY ORALLY ONCE A DAY NOT-TAKING VERAPAMIL HCL ER 180 MG TABLET EXTENDED RELEASE 1 TABLET ORALLY TWICE A DAY NOT-TAKING PANTOPRAZOLE SODIUM 40 MG TABLET DELAYED RELEASE TAKE 1 TABLET BY MOUTH TWICE A DAY NOT-TAKING SPIRONOLACTONE 50 MG TABLET 1 TABLET ORALLY ONCE A DAY MEDICATION LIST REVIEWED AND RECONCILED WITH THE PATIENT PAST MEDICAL HISTORY GERD DDD, HERNIATED DISCS, SPINE ARTHRITIS COPD PER PATIENT CHRONIC MIGRAINES HX RIGHT ANKLE FX, LEFT FOOT FX, COCCYX FX R KNEE SCAR TISSUE OBESITY PCOS, HIRSUTISM HYPERLIPIDEMIA RESTLESS LEGS SYNDROME IRON DEFICIENCY ANEMIA CHRONIC FATIGUE IRREGULAR HEAVY MENSES ENDOMETRIOSIS INTERSTITIAL CYSTITIS REPORTED HISTORY OF COLONIC POLYPS ELEVATED 24 HR CORTISOL- SAW DR. GOMEZ, NO ADRENAL INSUFFICIENCY OCCIPITAL NEURALGIA CHRONIC PAIN DUE TO TRAUMA MYALGIA CONSTIPATION TUMOR UTERUS CHRONIC BACK AND NECK PAIN ALLERGIES TYLENOL: FEVER - ALLERGY ZANTAC: NUMBNESS ANDTINGLING IN HANDS AND SWOLLEN LIPS - ALLERGY HYDROCODONE-ACETAMINOPHEN: FEVER ,NAUSEA - ALLERGY PENICILLIN (FOR ALLERGIES USE ONLY): YEAST INFECTION - SIDE EFFECTS VENOFER: JOINT SWELLING - ALLERGY BANDAIDS/ADHESIVES: RASH - ALLERGY SOCIAL HISTORY GENERAL: TOBACCO USE ARE YOU A:NONSMOKER NEVER SMOKER LATEX QUESTIONNAIRE LATEX ALLERGY : HAVE YOU EVER DEVELOPED ANY TYPE OF REACTION AFTER HANDLING LATEX PRODUCTS SUCH RUBBER GLOVES, CONDOMS, DIAPHRAGMS, BALLOONS, SOCKS, OR UNDERWEAR?YES - PLEASE INDICATE :OTHER (DOCUMENT IN NOTES) SOME BANDAIDS LATEX ALLERGY : HAVE YOU EVER DEVELOPED ANY TYPE OF REACTION DURING OR AFTER DENTAL APPOINTMENT, VAGINAL/RECTAL EXAMINATION, SURGICAL PROCEDURE, OR ANY OTHER EXPOSURE?NO LATEX RISK : HAVE YOU EVER HAD ANY DIFFICULTY BREATHING OR HIVES AFTER EATING OR HANDLING ANY FRUITS, OR VEGETABLES; SUCH KIWI, BANANAS, STONE FRUITS, OR CHESTNUTSNO LATEX RISK : DO YOU HAVE A PREVIOUS PERSONAL HISTORY OF MORE THAN NINE SURGERIES, SPINA BIFIDA, OR REPEATED CATHERIZATIONS? NO LATEX RISK : ARE YOU FREQUENTLY EXPOSED TO LATEX PRODUCTS IN YOUR OCCUPATION?NO DATE ASKED : 09/23/2020 ALCOHOL USE: NO. ALCOHOL SCREENING DID YOU HAVE A DRINK CONTAINING ALCOHOL IN THE PAST YEAR?NO POINTS0 INTERPRETATIONNEGATIVE RECREATIONAL DRUG USE DRUG USE?NO CAFFEINE CAFFEINE USE?NO SEXUAL HX HAD SEX IN THE LAST 12 MONTHS (VAGINAL, ORAL, OR ANAL)?NO HAVE YOU EVER HAD AN STD?NO HIV / HEP-C SCREENING HIV TEST OFFERED TO PATIENT:YES DATE OFFERED:08/01/2017 TEST ACCEPTED:NO HEP-C TEST OFFERED TO PATIENT:NO REASON:PATIENT DECLINED BROCHURE PROVIDED TO PATIENTYES SPIRITISM [id number] NONE OTHER LANGUAGE LANGUAGES SPOKEN:BELARUSIAN EDUCATION LEVEL OF EDUCATION:COLLEGE LEARNING BARRIERS / SPECIAL NEEDS CHANGE FROM LAST VISIT?NO BARRIERS TO LEARNING?NO HEARING IMPAIRED?NO VISION IMPAIRED?NO COGNITIVELY IMPAIRED?NO READINESS TO LEARN?YES LEARNING PREFERENCES?YES :DEMONSTRATION/VERBAL INSTRUCTION LEARNING CAPABILITIES PRESENT?YES EMOTIONAL BARRIERS?NO SPECIAL DEVICES?NO 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 DIET: NO MSG ,GLUTEN FREE. EXERCISE: NONE. MARITAL STATUS: SINGLE. OTHERS AT HOME: [place], IN-LAW(S). - WAS THE PROVIDER NOTIFIED OF ANY PERTINENT INFO?YES HAS THE PATIENT BEEN EDUCATED REGARDING HIS/HER PLAN OF CARE?YES HAS THE PATIENT BEEN EDUCATED REGARDING PAIN, THE RISK FOR PAIN, THE IMPORTANCE OF EFFECTIVE PAIN MANAGEMENT, AND THE PAIN ASSESSMENT PROCESS?YES ADVANCE DIRECTIVE ADVANCE DIRECTIVE DISCUSSED WITH PATIENT:YES HAS HCP- MALGORZATA VELASCO [phone] REVIEW OF SYSTEMS CONSTITUTIONAL: ANY RECENT FEVER NO . CHILLS NO . WEIGHT CHANGE OF UNKNOWN REASONS NO . GASTROENTEROLOGY: NEW UNEXPLAINABLE CHANGES IN BOWEL CONTROL NO . CONSTIPATION NO . GENITOURINARY: ANY NEW CHANGE IN BLADDER CONTROL? NO . NEUROLOGY: NEW ONSET DIZZINESS OR NEUROLOGICAL CHANGES NOT MENTIONED NO . NEW NUMBNESS OR PAIN PATTERNS NOT MENTIONED AND PERTINENT TO TODAY'S VISIT NO . CARDIOLOGY: NEW CHEST PRESSURE NO . PATIENT DENIES NO . RESPIRATORY: UNEXPLAINABLE COUGH NO . NEW SHORTNESS OF BREATH NO . VITAL SIGNS WT 218 LBS, HT 60 IN, BMI 42.57 INDEX, BP 155/90 MM HG, HR 108 /MIN, RR 18 /MIN, TEMP 98.1 F, OXYGEN SAT % 97%, SAFE IN ENV? (Y/N) YES, NA INITIALS NV 13:16T.ALMAZ CASTREJON. EXAMINATION GENERAL EXAMINATION: GENERALNO ACUTE DISTRESS, WELL NOURISHED AND HYDRATED. LUNGS: LUNG SOUNDS ARE CLEAR . HEART: HEART RATE REGULAR . MUSCULOSKELETAL:*, MUSCLE STRENGTH TESTING 5/5 BILATERAL UPPER EXTREMITIES. . CERVICAL:+ FOR PAIN WITH PALPATION OF CERVICAL SPINE. + FOR PAIN WITH PALPATION OF CERVICAL PARASPINALS.SPECIFIC POINT TENDERNESS NOTED OV C4/5-/C5/6 CERVICAL FACETS WITH EXTENSION AND FACET LOADING.. DIAGNOSTIC TESTS REVIEWED CERVICAL MRI -09/14/2018. ASSESSMENTS SPONDYLOSIS OF CERVICAL REGION WITHOUT MYELOPATHY OR RADICULOPATHY - M47.812 (PRIMARY) TREATMENT SPONDYLOSIS OF CERVICAL REGION WITHOUT MYELOPATHY OR RADICULOPATHY MEDICATION: VALIUM TAB 10MG ORALLY (DIAZEPAM) (ORDERED FOR 09/30/2020) MEDICATION: OXYCODONE HCL TAB 10MG ORALLY (ORDERED FOR 09/30/2020) SALINE LOCK (ORDERED FOR 09/30/2020) NOTES: BILATERAL THERAPEUTIC CERVICAL FACET BLOCK C3-4,C4-5 PRINTED AND REVIEWED PRE PROCEDURE WITH PATIENT LAUREN CASTREJON. PROCEDURE CODES FA211 ESTABILISHED PATIENT [facility] FACILITY CHARGE DISPOSITION & COMMUNICATION FOLLOW UP POST LUMBAR FACET AND CERVICAL FACET, 2 WEEKS (REASON: BILATERAL THERAPEUTIC CERVICAL FACET BLOCK C3-4,C4-5) ELECTRONICALLY SIGNED BY BRYANT MIXON ON 09/30/2020 AT 02:59 PM EST DISCLAIMER : THIS IS A VISIT SUMMARY EXTRACTED FROM THE [employer] CHART. IT IS NOT A COPY OF THE [employer] PROGRESS NOTE. CATRACHITOD
== END ==
LOC: M PAIN 13:30
PROVIDERS: ATTEND Nurse Practitioner Family
DX: M47.812 Spondylosis without myelopathy or radiculopathy, cervical region (principal); K21.9 Gastro-esophageal reflux disease without esophagitis; G43.909 Migraine, unspecified, not intractable, without status migrainosus; G25.81 Restless legs syndrome; D50.9 Iron deficiency anemia, unspecified; M79.10 Myalgia, unspecified site; Z88.0 Allergy status to penicillin; Z88.5 Allergy status to narcotic agent; Z88.6 Allergy status to analgesic agent; Z88.8 Allergy status to other drugs, medicaments and biological substances; Z91.09 Other allergy status, other than to drugs and biological substances; E66.01 Morbid (severe) obesity due to excess calories; Z68.41 Body mass index [BMI] 40.0-44.9, adult; Z79.891 Long term (current) use of opiate analgesic; Z79.899 Other long term (current) drug therapy

== ENCOUNTER → 2020-10-02 | Outpatient (CLI) | payer MEDICARE, MEDICAID | LOC: M LABSMTC 09:45 | PROVIDERS: ATTEND Anesthesiology | DX: Z20.822 Contact with and (suspected) exposure to COVID-19 (principal) ==

== ENCOUNTER → 2020-10-07 | Outpatient (CLI) | payer MEDICARE, MEDICAID ==
[~2020-10-07] MED LIST changes: +BUPIVACAINE HCL 0.25% 30ML VIAL As Ordered ONE; +ISOVUE-M 300 61% 15ML VIAL As Ordered ONE; +LIDOCAINE 1% SDV 30ML VIAL As Ordered ONE; +TRIAMCINOLONE ACETONIDE SUSP 40 MG/ML VIAL (J3301) As Ordered ONE; +diazePAM 5MG TABLET As Ordered ONE; +oxyCODONE 5MG TAB As Ordered ONE
--- NOTE | 2020-10-07 10:31 | REP ---
INDICATION: BILATERAL THERAPEUTIC CERVICAL FACET BLOCK C3-C4, C4-C5. COMPARISON: None. TECHNIQUE: A single views. 20.9 seconds of fluoroscopy time is reported. FINDINGS: A single last image hold fluoroscopically obtained spot radiograph(s) of the cervical spine document(s) needle position(s) and contrast injection associated with injection procedure. IMPRESSION: Procedural imaging. <Electronically signed by Phu Subramanian > 10/07/20 1023
--- NOTE | 2020-10-08 01:37 | ECWPNPC ---
PATIENT NAME: DEEDEE SHEARER : 1975 GENDER: FEMALE VISIT DATE: 10/07/2020 DISCHARGE DATE: 10/07/20 1049 VISIT LOCKED DATE TIME: PHYSICIAN: DAVID NINO MD PHYSICIAN PAGER NO: ACTIVE RESOURCE: DAVID NINO MD REASON FOR APPOINTMENT 1. BILATERAL THERAPEUTIC CERVICAL FACET BLOCK C3-C4, C4-C5 HISTORY OF PRESENT ILLNESS GENERAL: -. FALL RISK SCREENING: SCREENING : NO FALLS REPORTED IN THE LAST YEAR. PAIN SCREENING: PATIENT HAS A COMPLAINT OF ACUTE OR CHRONIC PAIN :YES LOCATION OF PAIN:HEAD, NECK, LOW BACK, OTHER: RIGHT KNEE INTENSITY OF PAIN (SCALE OF 1 TO 10):9 WHAT DOES YOUR PAIN FEEL LIKE:SHARP, THROBBING DURATION:INTERMITTENT PAIN IS INCREASED BY:ACTIVITIES PAIN IS DECREASED BY:USE OF PAIN MEDICATIONS NURSING NOTE: -. PAIN CENTER INTAKE QUESTIONS: DO YOU HAVE A HISTORY OF MRSA? :NO DO YOU TAKE A BLOOD THINNERS? :NO DO YOU HAVE ANY BLEEDING DISORDERS? :NO ANY NEW NUMBNESS OR WEAKNESS IN YOUR LEGS OR ARMS? :NO ANY PACEMAKER,DEFIBRILLATOR, OR DORSAL COLUMN STIMULATOR? :NO DO YOU HAVE ANY RASHES OR OPEN SORES? :YES 5TH FINGER RIGHT HAND REDDENED AT NAIL AREA - DR. NINO NOTIFIED ARE YOU ALLERGIC TO IV DYE? :NO ARE YOU DIABETIC? :NO ANY NEW PROBLEMS WITH YOUR MEDICATIONS? :NO HAVE YOU RECEIVED A VACCINE IN THE PAST 30 DAYS? :NO DO YOU PLAN TO RECEIVE A VACCINE IN THE NEXT 21 DAYS? :NO DO YOU TAKE ANY IMMUNOSUPPRESSIVE MEDICATIONS? :NO ANY HISTORY OF SEIZURES? :NO ANY HISTORY OF CARDIAC ISSUES OR EVENTS? :NO DO YOU HAVE ANY KIDNEY OR LIVER DISEASE? :NO DO YOU HAVE SLEEP APNEA? :NO ANY RECENT HEAD INJURY? :NO DO YOU HAVE ANY NEW INFECTIONS? :NO IS THERE A CHANCE YOU COULD BE ? :NO ARE YOU BREAST FEEDING? :NO WHEN DID YOU LAST EAT? : -1800 10/06/20 WHEN DID YOU LAST DRINK? : -0600 WHAT DID YOU LAST DRINK? : -WATER NAME OF PERSON DRIVING YOU HOME? : -TAXI DO YOU HAVE ANY OTHER QUESTIONS OR CONCERNS? : -NO CURRENT MEDICATIONS TAKING OXYBUTYNIN CHLORIDE ER 5 MG TAKE 1 TABLET BY MOUTH EVERY DAY TAKING ALBUTEROL SULFATE HFA 108 (90 BASE) MCG/ACT AEROSOL SOLUTION 2 PUFFS NEEDED INHALATION EVERY 4 HRS PRN SOB/WHEEZING TAKING EMGALITY 120 MG/ML SOLUTION AUTO-INJECTOR DIRECTED SUBCUTANEOUS MONTHLY TAKING PROMETHAZINE HCL 25 MG TABLET 1 TABLET NEEDED ORALLY EVERY 12 HRS PRN NAUSEA TAKING ALAVERT ALLERGY/SINUS 5-120 MG TABLET EXTENDED RELEASE 12 HOUR 1 TABLET NEEDED ORALLY EVERY 12 HRS TAKING VITAMIN C ER 1000 MG TABLET EXTENDED RELEASE 1 TABLET ORALLY ONCE A DAY TAKING SENOKOT S 8.6-50 MG TABLET ORALLY THREE TIMES A DAY TAKING VITAMIN D3 2000 UNIT CAPSULE 2 CAPSULES ORALLY ONCE A DAY TAKING FERROUS SULFATE 325 MG CAPSULE 1300 MG ORALLY TWICE A DAY TAKING PROCTOZONE-HC 2.5 % CREAM 1 APPLICATION TO AFFECTED AREA RECTAL TWICE A DAY NEEDED TAKING E-Z SPACER 1 SPACER ICD10: J44.9 DIRECTED WITH PRN ALBUTEROL INHALER TAKING TRIAMCINOLONE ACETONIDE 0.1 % CREAM 1 APPLICATION EXTERNALLY TWO TIMES A WEEK TAKING OMEPRAZOLE 40 MG CAPSULE DELAYED RELEASE 1 CAPSULE 30 MINUTES BEFORE MORNING MEAL ORALLY ONCE A DAY TAKING TIZANIDINE HCL 4 MG TABLET 1 TABLET NEEDED ORALLY 1 TAB AT HS TAKING SPIRONOLACTONE 100 MG TABLET TAKE 1 TABLET BY MOUTH EVERY DAY TAKING ATORVASTATIN CALCIUM 40 MG TABLET TAKE 1 TABLET BY MOUTH EVERY DAY TAKING MOBIC 15 MG TABLET 1 TABLET ORALLY ONCE A DAY NEEDED TAKING CYCLOBENZAPRINE HCL 10 MG TABLET 1 TAB ORALLY BID FOR SEVERE MUSCLE SPASM TAKING DIHYDROERGOTAMINE MESYLATE 1 MG/ML SOLUTION 1 ML EVERY HOUR NEEDED INJECTION TWICE A DAY TAKING UBRELVY 100 MG TABLET 1 TABLET MAY TAKE SECOND DOSE AT LEAST 2 HOURS AFTER FIRST DOSE NEEDED ORALLY ONCE A DAY TAKING OXYCODONE HCL 10 MG TABLET 1 TABLET ORALLY Q12H BID MDD2, NOTES: 10/06/202199 NOT-TAKING OXYCODONE HCL 10 MG TABLET 1 TABLET NEEDED ORALLY Q12H PRN MDD2 NOT-TAKING EMGALITY 120 MG/ML SOLUTION AUTO-INJECTOR DIRECTED SUBCUTANEOUS NOT-TAKING ZOLMITRIPTAN 5 MG TABLET 1 TABLET ORALLY ONCE A DAY NEEDED NOT-TAKING LYRICA 200 MG CAPSULE 1 CAPSULE 1 TO 3 HOURS BEFORE BEDTIME ORALLY THREE TIMES DAILY NOT-TAKING OXYBUTYNIN CHLORIDE ER 5 MG TABLET EXTENDED RELEASE 24 HOUR TAKE 1 TABLET BY MOUTH EVERY DAY ORALLY ONCE A DAY NOT-TAKING VERAPAMIL HCL ER 180 MG TABLET EXTENDED RELEASE 1 TABLET ORALLY TWICE A DAY NOT-TAKING PANTOPRAZOLE SODIUM 40 MG TABLET DELAYED RELEASE TAKE 1 TABLET BY MOUTH TWICE A DAY NOT-TAKING SPIRONOLACTONE 50 MG TABLET 1 TABLET ORALLY ONCE A DAY MEDICATION LIST REVIEWED AND RECONCILED WITH THE PATIENT PAST MEDICAL HISTORY GERD DDD, HERNIATED DISCS, SPINE ARTHRITIS COPD PER PATIENT CHRONIC MIGRAINES HX RIGHT ANKLE FX, LEFT FOOT FX, COCCYX FX R KNEE SCAR TISSUE OBESITY PCOS, HIRSUTISM HYPERLIPIDEMIA RESTLESS LEGS SYNDROME IRON DEFICIENCY ANEMIA CHRONIC FATIGUE IRREGULAR HEAVY MENSES ENDOMETRIOSIS INTERSTITIAL CYSTITIS REPORTED HISTORY OF COLONIC POLYPS ELEVATED 24 HR CORTISOL- SAW DR. GOMEZ, NO ADRENAL INSUFFICIENCY OCCIPITAL NEURALGIA CHRONIC PAIN DUE TO TRAUMA MYALGIA CONSTIPATION TUMOR UTERUS CHRONIC BACK AND NECK PAIN ALLERGIES TYLENOL: FEVER - ALLERGY ZANTAC: NUMBNESS ANDTINGLING IN HANDS AND SWOLLEN LIPS - ALLERGY HYDROCODONE-ACETAMINOPHEN: FEVER ,NAUSEA - ALLERGY PENICILLIN (FOR ALLERGIES USE ONLY): YEAST INFECTION - SIDE EFFECTS VENOFER: JOINT SWELLING - ALLERGY BANDAIDS/ADHESIVES: RASH - ALLERGY VITAL SIGNS WT 215.6 LBS, HT 60 IN, BMI 42.10 INDEX, BP 126/81 MM HG, HR 118 /MIN, RR 18 /MIN, TEMP 97.5 F, OXYGEN SAT % 96%, SAFE IN ENV? (Y/N) YES, NA INITIALS IA 08:543/ 0913 VS REVIEWED. HR NOTED AND RECHECKED Manfred. Connor HYLTON RN. EXAMINATION GENERAL EXAMINATION: A HISTORY AND PHYSICAL EXAM ON THE PATIENT WAS DONE ON 09/23/2020 (DATE OF ORIGINAL ASSESSMENT) IN PREPARATION OF SURGERY/PROCEDURE. I HAVE NOW REASSESSED THIS PATIENT'S HEALTH STATUS AND PERFORMED AN UPDATED EXAM TODAY. ALL CHANGES IN THE PATIENT'S HISTORY, PHYSICAL EXAM, PRE-EXISTING CONDITONS, AND INDICATIONS/CONTRAINDICATIONS TO THE PLANNED PROCEDURE AND ANESTHESIA ARE DOCUMENTED AND EVALUATED BELOW. I ATTEST TO THE ADEQUACY AND APPROPRIATENESS OF MY ASSESSMENT, AND CONFIRM THE NECESSITY FOR THE PLANNED PROCEDURE. THE PATIENT IS ALERT, ORIENTED TIMES THREE AND COOPERATIVE. LUNGS ARE CLEAR TO AUSCULTATION. HEART SHOWS REGULAR RHYTHM, NO MURMURS AND NO GALLOPS. ASSESSMENTS SPONDYLOSIS OF CERVICAL REGION WITHOUT MYELOPATHY OR RADICULOPATHY - M47.812 TREATMENT SPONDYLOSIS OF CERVICAL REGION WITHOUT MYELOPATHY OR RADICULOPATHY [facility] FACET BLOCK (PAIN)[id number] COMPLETION OF PROCEDURAL VISIT WHEN MEETS CRITERIA WALE LIEBERMAN 10/07/2020 9:32:05 AM > 22 GAUGE SL INSERTED IN LEFT HAND ON 1ST ATTEMPT. SITE CLEAR, FLUSHING WITHOUT DIFFICULTY. MEDICATION: VALIUM TAB 10MG ORALLY (DIAZEPAM)ROBBY HYLTON RN 10/07/2020 9:27:09 AM > LOT [id number]. EXPIRES APR 2022. CESARIO MURCIA 10/07/2020 9:29:53 AM > VERIFIED ROBBY HYLTON RN 10/07/2020 9:37:11 AM > ADMINISTERED. MEDICATION: OXYCODONE HCL TAB 10MG ORALLYROBBY HYLTON RN 10/07/2020 9:28:25 AM > LOT [id number]. EXPIRES 07/2021. CESARIO MURCIA 10/07/2020 9:30:08 AM > VERIFIED ROBBY HYLTON RN 10/07/2020 9:37:33 AM > ADMINISTERED. PROCEDURES PAIN NURSING RECORD PROCEDURE IN ROOM 0944, PHYSICIAN IN ROOM 1000, START 1008, FINISH 1014, PHYSICIAN OUT OF ROOM 1016, OUT OF ROOM 1020, ECG NORMAL SINUS, PATIENT SHIELDED YES, SAFETY STRAP YES, PREP CHLOROPREP Connor HYLTON RN, DRESSING TEGADERM DR. NINO LOC: 0945, 1. ALERT, ORIENTED 1015, LOC REMAINED AT BASELINE THROUGHOUT THE PROCEDURE RESP: 0945, 1. REGULAR, NO DYSPNEA 1000, 1. REGULAR, NO DYSPNEA 1015, 1. REGULAR, NO DYSPNEA 1030, 1. REGULAR, NO DYSPNEA 1036, 1. REGULAR, NO DYSPNEA COLOR: 1000 1. PINK, 1015 1. PINK, 1030 1. PINK, 1036, 1. PINK SKIN: 1000 1. WARM, DRY, 1015 1. WARM, DRY, 1030 1. WARM, DRY, 1036, 1. WARM, DRY POSITION: 1000 1. PRONE, 1015 1. PRONE, 1030 5. SITTING, 1036, 5. SITTING VITALS: 0945 90-18 135/102 96% 1000 85-16 137/95 97% 1015 94-16 146/98 95% 1036 96-18 148/94 97% NOTES STERILE TRAY AND MEDICATIONS PREPARED BY Sirisha CARRIZALES RN. MEDICATIONS VERIFIED. Connor HYLTON RN 10/07/20 1004 COMPLETION OF PROCEDURE APPOINTMENT: POST PAIN 9, DRESSING SITE DRY AND INTACT, IV DISCONTINUED, SITE CLEAR, CATHETER INTACT, GAIT WHEELCHAIR, TEACHING COMPLETED, PATIENT ACKNOWLEDGES UNDERSTANDING YES, PROCEDURE APPOINTMENT COMPLETED AT 1050 PN CERVICAL FACET BLOCK LOW BILATERAL CERVICAL PRE PROCEDURE DIAGNOSIS CERVICAL SPONDYLOSIS POST PROCEDURE DIAGNOSIS CERVICAL SPONDYLOSIS PROCEDURE BILATERAL C3-C4 AND BILATERAL C4-C5 THERAPEUTIC CERVICAL FACET BLOCK SURGEON DR. DAVID NINO DATA DESIGNER NONE ANESTHESIA LOCAL PRE PROCEDURE NOTE THE PATIENT HAS HISTORY OF CHRONIC CERVICAL PAIN. I EVALUATED THE PATIENT AND REVIEWED THE CHART. I WENT OVER THE RISKS, ALTERNATIVES, AND BENEFITS ASSOCIATED WITH THIS PROCEDURE. THE PATIENT WOULD LIKE TO PROCEED AND GIVE CONSENT TO PERFORMED THE PROCEDURE. THE PATIENT DENIES UNEXPLAINABLE WEIGHT LOSS, FEVER, CHILLS, OR NEW CHANGES IN URINARY OR BOWEL CONTROL. THE PATIENT IS COVID-19 NEGATIVE DESCRIPTION OF PROCEDURE THE PATIENT WAS BROUGHT TO THE PROCEDURE ROOM AND PLACED IN THE PRONE POSITION. THE CERVICOTHORACIC AREA WAS CLEANED WITH CHLORAPREP SOLUTION AND DRAPED ASEPTICALLY. THE PROCEDURE WAS DONE UNDER STERILE CONDITIONS. A TIMEOUT WAS PERFORMED WHERE THE CONSENTED SITE WAS VERIFIED WITH EVERYONE IN THE ROOM. UNDER FLUOROSCOPIC GUIDANCE, TARGET POINT WAS SELECTED AT THE RIGHT AND LEFT C3-C4 AND RIGHT AND LEFT C4-C5 CERVICAL FACET JOINT. TARGET POINTS WERE SELECTED AFTER LATERAL ROTATION AND TILT OF THE MAGNIFIER OF THE C-ARM. I CONFIRMED AGAIN THE SITE OF TARGET. LIDOCAINE 0.5% WAS USED TO NUMB THE SKIN AND THE SUBCUTANEOUS TISSUE BELOW IT. SPINAL NEEDLES, 22-GAUGE, WERE ADVANCED UNDER FLUOROSCOPIC GUIDANCE AND FOLLOWING PATIENT FEEDBACK UNTIL THE TARGETS WERE TOUCHED. THE POSITION OF THE NEEDLES WAS VERIFIED WITH AP AND LATERAL VIEWS. AFTER PROPER POSITION OF THE NEEDLES WAS ACHIEVED, ISOVUE-M DYE 30%, 0.1 ML, WAS INJECTED SHOWING SPREAD OF THE DYE. KENALOG 10 MG WAS INJECTED AT EACH SITE. THEN A SOLUTION OF 6 ML OF BUPIVACAINE 0.125% WAS USED TO FLUSH EACH SITE. THE MEDICATIONS WERE VERIFIED WITH THE NURSE. THERE WAS NO EVIDENCE OF BLOOD, PARESTHESIA OR CEREBROSPINAL FLUID DURING THE PROCEDURE. THE PATIENT WAS SENT TO THE RECOVERY ROOM. THE PATIENT WAS MOVING THE EXTREMITIES AND DOING WELL. THERE WERE NO COMPLICATIONS DURING THE PROCEDURE. ESTIMATED BLOOD LOSS WAS LESS THAN 5 ML. FLUOROSCOPY TIME WAS 20 SECONDS. POST PROCEDURE NOTE THE PATIENT WILL BE SEEN IN A FOLLOW UP IN THE NEXT FEW WEEKS. I AM LOOKING FOR LONG LASTING RELIEF FOR THE PATIENT WITH THIS INTERVENTION. INSTRUCTIONS WERE GIVEN, QUESTIONS WERE ANSWERED, AND THE PATIENT EXPRESSED UNDERSTANDING AND AGREES WITH THE PLAN. I, HONEY BARILLAS, DOCUMENTED THE ABOVE INFORMATION ACTING A SCRIBE FOR DR. NINO. I HAVE REVIEWED THE ABOVE DOCUMENT, WRITTEN BY HONEY BARILLAS, SITE ENGINEER, AND I VERIFY THAT IT IS ACCURATE PROCEDURE CODES 17477 INJ PARAVERT F JNT C/T 1 LEV, MODIFIERS: 50 [id number] INJ PARAVERT F JNT C/T 2 LEV, MODIFIERS: 50 DISPOSITION & COMMUNICATION FOLLOW UP FOLLOW UP WITH SOCIAL HUMAN SERVICES ASSISTANTS (REASON: POST BILATERAL THERAPEUTIC CERVICAL FACET BLOCK C3-C4, C4-C5) ELECTRONICALLY SIGNED BY DAVID NINO MD, ON 10/07/2020 AT 03:39 PM EDT DISCLAIMER : THIS IS A VISIT SUMMARY EXTRACTED FROM THE [employer] CHART. IT IS NOT A COPY OF THE [employer] PROGRESS NOTE. JOHNNIE
== END ==
LOC: M PAIN 08:30
PROVIDERS: ATTEND Anesthesiology
DX: M47.812 Spondylosis without myelopathy or radiculopathy, cervical region (principal); K21.9 Gastro-esophageal reflux disease without esophagitis; G43.909 Migraine, unspecified, not intractable, without status migrainosus; G25.81 Restless legs syndrome; D50.9 Iron deficiency anemia, unspecified; M79.10 Myalgia, unspecified site; Z88.0 Allergy status to penicillin; Z88.5 Allergy status to narcotic agent; Z88.6 Allergy status to analgesic agent; Z88.8 Allergy status to other drugs, medicaments and biological substances; Z91.09 Other allergy status, other than to drugs and biological substances; E66.01 Morbid (severe) obesity due to excess calories; Z68.41 Body mass index [BMI] 40.0-44.9, adult; Z79.891 Long term (current) use of opiate analgesic; Z79.899 Other long term (current) drug therapy
CPT/HCPCS: 64490; 64491; J3301; Q9967

== ENCOUNTER → 2020-10-20 | Outpatient (CLI) | payer MEDICARE, MEDICAID ==
[~2020-10-20] MED LIST changes: -BUPIVACAINE HCL 0.25% 30ML VIAL As Ordered ONE; -ISOVUE-M 300 61% 15ML VIAL As Ordered ONE; -LIDOCAINE 1% SDV 30ML VIAL As Ordered ONE; -TRIAMCINOLONE ACETONIDE SUSP 40 MG/ML VIAL (J3301) As Ordered ONE; -diazePAM 5MG TABLET As Ordered ONE; -oxyCODONE 5MG TAB As Ordered ONE
--- NOTE | 2020-10-23 12:24 | ECWPNPC ---
PATIENT NAME: DEEDEE SHEARER : 1975 GENDER: FEMALE VISIT DATE: 10/20/2020 DISCHARGE DATE: 10/20/20 1201 VISIT LOCKED DATE TIME: PHYSICIAN: STARLA CHEATHAM PHYSICIAN PAGER NO: ACTIVE RESOURCE: STARLA CHEATHAM REASON FOR APPOINTMENT 1. POST LUMBAR EPIDURAL STEROID INJECTION/BILATERAL THERAPEUTIC CERVICAL FACET BLOCK C3-C4, C4-C5 HISTORY OF PRESENT ILLNESS GENERAL: HERE FOR POST PROCEDURE F/U.HAD BILATERAL C3-4,C4-5 THERAPEUTIC FACET BLOCK ON 10/07/20.REPORTING MARKED REDUCTION IN PAIN THAT CONTINUES TODAY.DISCUSSED MEDICATION AND TREATMENT PLAN. -. FALL RISK SCREENING: SCREENING : NO FALLS REPORTED IN THE LAST YEAR. PAIN SCREENING: PATIENT HAS A COMPLAINT OF ACUTE OR CHRONIC PAIN :YES LOCATION OF PAIN:HEAD, LOW BACK INTENSITY OF PAIN (SCALE OF 1 TO 10):4 WHAT DOES YOUR PAIN FEEL LIKE:BURNING, TENDER, SORE DURATION:CONTINOUS, CONSTANT, ALL DAY PAIN IS INCREASED BY:ACTIVITIES PAIN IS DECREASED BY:USE OF PAIN MEDICATIONS NURSING NOTE: -. PAIN CENTER INTAKE QUESTIONS: DO YOU HAVE A HISTORY OF MRSA? :NO DO YOU TAKE A BLOOD THINNERS? :NO DO YOU HAVE ANY BLEEDING DISORDERS? :NO ANY NEW NUMBNESS OR WEAKNESS IN YOUR LEGS OR ARMS? :NO ANY PACEMAKER,DEFIBRILLATOR, OR DORSAL COLUMN STIMULATOR? :NO DO YOU HAVE ANY RASHES OR OPEN SORES? :NO ARE YOU ALLERGIC TO IV DYE? :NO ARE YOU DIABETIC? :NO ANY NEW PROBLEMS WITH YOUR MEDICATIONS? :NO HAVE YOU RECEIVED A VACCINE IN THE PAST 30 DAYS? :NO DO YOU PLAN TO RECEIVE A VACCINE IN THE NEXT 21 DAYS? :NO DO YOU NEED ANY PRESCRIPTION? :YES OXY DO YOU TAKE ANY IMMUNOSUPPRESSIVE MEDICATIONS? :NO IS THERE A CHANCE YOU COULD BE ? :NO ARE YOU BREAST FEEDING? :NO CURRENT MEDICATIONS TAKING OXYBUTYNIN CHLORIDE ER 5 MG TAKE 1 TABLET BY MOUTH EVERY DAY TAKING ALBUTEROL SULFATE HFA 108 (90 BASE) MCG/ACT AEROSOL SOLUTION 2 PUFFS NEEDED INHALATION EVERY 4 HRS PRN SOB/WHEEZING TAKING EMGALITY 120 MG/ML SOLUTION AUTO-INJECTOR DIRECTED SUBCUTANEOUS MONTHLY TAKING PROMETHAZINE HCL 25 MG TABLET 1 TABLET NEEDED ORALLY EVERY 12 HRS PRN NAUSEA TAKING ALAVERT ALLERGY/SINUS 5-120 MG TABLET EXTENDED RELEASE 12 HOUR 1 TABLET NEEDED ORALLY EVERY 12 HRS TAKING VITAMIN C ER 1000 MG TABLET EXTENDED RELEASE 1 TABLET ORALLY ONCE A DAY TAKING [place] S 8.6-50 MG TABLET ORALLY THREE TIMES A DAY TAKING VITAMIN D3 2000 UNIT CAPSULE 2 CAPSULES ORALLY ONCE A DAY TAKING FERROUS SULFATE 325 MG CAPSULE 1300 MG ORALLY TWICE A DAY TAKING PROCTOZONE-HC 2.5 % CREAM 1 APPLICATION TO AFFECTED AREA RECTAL TWICE A DAY NEEDED TAKING E-Z SPACER 1 SPACER ICD10: J44.9 DIRECTED WITH PRN ALBUTEROL INHALER TAKING TRIAMCINOLONE ACETONIDE 0.1 % CREAM 1 APPLICATION EXTERNALLY TWO TIMES A WEEK TAKING OMEPRAZOLE 40 MG CAPSULE DELAYED RELEASE 1 CAPSULE 30 MINUTES BEFORE MORNING MEAL ORALLY ONCE A DAY TAKING TIZANIDINE HCL 4 MG TABLET 1 TABLET NEEDED ORALLY 1 TAB AT HS TAKING SPIRONOLACTONE 100 MG TABLET TAKE 1 TABLET BY MOUTH EVERY DAY TAKING ATORVASTATIN CALCIUM 40 MG TABLET TAKE 1 TABLET BY MOUTH EVERY DAY TAKING MOBIC 15 MG TABLET 1 TABLET ORALLY ONCE A DAY NEEDED TAKING CYCLOBENZAPRINE HCL 10 MG TABLET 1 TAB ORALLY BID FOR SEVERE MUSCLE SPASM TAKING DIHYDROERGOTAMINE MESYLATE 1 MG/ML SOLUTION 1 ML EVERY HOUR NEEDED INJECTION TWICE A DAY TAKING UBRELVY 100 MG TABLET 1 TABLET MAY TAKE SECOND DOSE AT LEAST 2 HOURS AFTER FIRST DOSE NEEDED ORALLY ONCE A DAY TAKING OXYCODONE HCL 10 MG TABLET 1 TABLET ORALLY Q12H BID MDD2, NOTES: 10/06/20 2200 NOT-TAKING OXYCODONE HCL 10 MG TABLET 1 TABLET NEEDED ORALLY Q12H PRN MDD2 NOT-TAKING EMGALITY 120 MG/ML SOLUTION AUTO-INJECTOR DIRECTED SUBCUTANEOUS NOT-TAKING ZOLMITRIPTAN 5 MG TABLET 1 TABLET ORALLY ONCE A DAY NEEDED NOT-TAKING LYRICA 200 MG CAPSULE 1 CAPSULE 1 TO 3 HOURS BEFORE BEDTIME ORALLY THREE TIMES DAILY NOT-TAKING OXYBUTYNIN CHLORIDE ER 5 MG TABLET EXTENDED RELEASE 24 HOUR TAKE 1 TABLET BY MOUTH EVERY DAY ORALLY ONCE A DAY NOT-TAKING VERAPAMIL HCL ER 180 MG TABLET EXTENDED RELEASE 1 TABLET ORALLY TWICE A DAY NOT-TAKING PANTOPRAZOLE SODIUM 40 MG TABLET DELAYED RELEASE TAKE 1 TABLET BY MOUTH TWICE A DAY NOT-TAKING SPIRONOLACTONE 50 MG TABLET 1 TABLET ORALLY ONCE A DAY MEDICATION LIST REVIEWED AND RECONCILED WITH THE PATIENT PAST MEDICAL HISTORY GERD DDD, HERNIATED DISCS, SPINE ARTHRITIS COPD PER PATIENT CHRONIC MIGRAINES HX RIGHT ANKLE FX, LEFT FOOT FX, COCCYX FX R KNEE SCAR TISSUE OBESITY PCOS, HIRSUTISM HYPERLIPIDEMIA RESTLESS LEGS SYNDROME IRON DEFICIENCY ANEMIA CHRONIC FATIGUE IRREGULAR HEAVY MENSES ENDOMETRIOSIS INTERSTITIAL CYSTITIS REPORTED HISTORY OF COLONIC POLYPS ELEVATED 24 HR CORTISOL- SAW DR. GOMEZ, NO ADRENAL INSUFFICIENCY OCCIPITAL NEURALGIA CHRONIC PAIN DUE TO TRAUMA MYALGIA CONSTIPATION TUMOR UTERUS CHRONIC BACK AND NECK PAIN ALLERGIES TYLENOL: FEVER - ALLERGY ZANTAC: NUMBNESS ANDTINGLING IN HANDS AND SWOLLEN LIPS - ALLERGY HYDROCODONE-ACETAMINOPHEN: FEVER ,NAUSEA - ALLERGY PENICILLIN (FOR ALLERGIES USE ONLY): YEAST INFECTION - SIDE EFFECTS VENOFER: JOINT SWELLING - ALLERGY BANDAIDS/ADHESIVES: RASH - ALLERGY SOCIAL HISTORY GENERAL: TOBACCO USE ARE YOU A:NONSMOKER NEVER SMOKER LATEX QUESTIONNAIRE LATEX ALLERGY : HAVE YOU EVER DEVELOPED ANY TYPE OF REACTION AFTER HANDLING LATEX PRODUCTS SUCH RUBBER GLOVES, CONDOMS, DIAPHRAGMS, BALLOONS, SOCKS, OR UNDERWEAR?YES - PLEASE INDICATE :OTHER (DOCUMENT IN NOTES) SOME BANDAIDS LATEX ALLERGY : HAVE YOU EVER DEVELOPED ANY TYPE OF REACTION DURING OR AFTER DENTAL APPOINTMENT, VAGINAL/RECTAL EXAMINATION, SURGICAL PROCEDURE, OR ANY OTHER EXPOSURE?NO LATEX RISK : HAVE YOU EVER HAD ANY DIFFICULTY BREATHING OR HIVES AFTER EATING OR HANDLING ANY FRUITS, OR VEGETABLES; SUCH KIWI, BANANAS, STONE FRUITS, OR CHESTNUTSNO LATEX RISK : DO YOU HAVE A PREVIOUS PERSONAL HISTORY OF MORE THAN NINE SURGERIES, SPINA BIFIDA, OR REPEATED CATHERIZATIONS? NO LATEX RISK : ARE YOU FREQUENTLY EXPOSED TO LATEX PRODUCTS IN YOUR OCCUPATION?NO DATE ASKED : 10/20/2020 ALCOHOL USE: NO. ALCOHOL SCREENING DID YOU HAVE A DRINK CONTAINING ALCOHOL IN THE PAST YEAR?NO POINTS0 INTERPRETATIONNEGATIVE RECREATIONAL DRUG USE DRUG USE?NO CAFFEINE CAFFEINE USE?NO SEXUAL HX HAD SEX IN THE LAST 12 MONTHS (VAGINAL, ORAL, OR ANAL)?NO HAVE YOU EVER HAD AN STD?NO HIV / HEP-C SCREENING HIV TEST OFFERED TO PATIENT:YES DATE OFFERED:08/01/2017 TEST ACCEPTED:NO HEP-C TEST OFFERED TO PATIENT:NO REASON:PATIENT DECLINED BROCHURE PROVIDED TO PATIENTYES BAHAI [id number] NONE OTHER LANGUAGE LANGUAGES SPOKEN:IRISH EDUCATION LEVEL OF EDUCATION:COLLEGE LEARNING BARRIERS / SPECIAL NEEDS CHANGE FROM LAST VISIT?NO BARRIERS TO LEARNING?NO HEARING IMPAIRED?NO VISION IMPAIRED?NO COGNITIVELY IMPAIRED?NO READINESS TO LEARN?YES LEARNING PREFERENCES?YES :DEMONSTRATION/VERBAL INSTRUCTION LEARNING CAPABILITIES PRESENT?YES EMOTIONAL BARRIERS?NO SPECIAL DEVICES?NO ONSITE CASE MANAGER NEEDED?NO DOMESTIC VIOLENCE DO YOU FEEL SAFE IN YOUR ENVIRONMENT?YES OCCUPATION: UNEMPLOYED. DIET: NO MSG ,GLUTEN FREE. EXERCISE: NONE. MARITAL STATUS: SINGLE. OTHERS AT HOME: SIBLING, IN-LAW(S). - WAS THE PROVIDER NOTIFIED OF ANY PERTINENT INFO?YES HAS THE PATIENT BEEN EDUCATED REGARDING HIS/HER PLAN OF CARE?YES HAS THE PATIENT BEEN EDUCATED REGARDING PAIN, THE RISK FOR PAIN, THE IMPORTANCE OF EFFECTIVE PAIN MANAGEMENT, AND THE PAIN ASSESSMENT PROCESS?YES ADVANCE DIRECTIVE ADVANCE DIRECTIVE DISCUSSED WITH PATIENT:YES HAS HCP- MALGORZATA VELASCO [phone] REVIEW OF SYSTEMS CONSTITUTIONAL: ANY RECENT FEVER NO . CHILLS NO . WEIGHT CHANGE OF UNKNOWN REASONS NO . GASTROENTEROLOGY: NEW UNEXPLAINABLE CHANGES IN BOWEL CONTROL NO . CONSTIPATION NO . GENITOURINARY: ANY NEW CHANGE IN BLADDER CONTROL? NO . NEUROLOGY: NEW ONSET DIZZINESS OR NEUROLOGICAL CHANGES NOT MENTIONED NO . NEW NUMBNESS OR PAIN PATTERNS NOT MENTIONED AND PERTINENT TO TODAY'S VISIT NO . CARDIOLOGY: NEW CHEST PRESSURE NO . PATIENT DENIES NO . RESPIRATORY: UNEXPLAINABLE COUGH NO . NEW SHORTNESS OF BREATH NO . VITAL SIGNS WT 215.6 LBS, HT 60 IN, BMI 42.10 INDEX, BP 130/68 MM HG, HR 94 /MIN, RR 18 /MIN, TEMP 97.0 F, OXYGEN SAT % 96%, SAFE IN ENV? (Y/N) YES, NA INITIALS AW 1122T.ALMAZ CASTREJON. EXAMINATION GENERAL EXAMINATION: GENERALAWAKE,ALERT ,PLEASANT . PSYCHAFFECT NORMAL . LUNGS:LUNG QUINTERO ARE CLEAR TO AUSCULTATION BILATERALLY. GOOD MOVEMENT OF AIR . HEART:S1, S2 IN A REGULAR RATE AND RHYTHM. NO SIGNIFICANT MURMURS, RUBS OR GALLOPS NOTED . ASSESSMENTS OTHER CHRONIC PAIN - G89.29 (PRIMARY) SPONDYLOSIS OF LUMBOSACRAL REGION WITHOUT MYELOPATHY OR RADICULOPATHY - M47.817 SPONDYLOSIS OF CERVICAL REGION WITHOUT MYELOPATHY OR RADICULOPATHY - M47.812 TREATMENT OTHER CHRONIC PAIN REFILL OXYCODONE HCL TABLET, 10 MG, 1 TABLET, ORALLY, Q12H BID MDD2, 30 DAYS, 60, REFILLS 0, NOTES: 10/06/20 2200 PAIN PROCEDURE LOGDATE OF PROCEDURE10/07/20PROCEDURE:BILATERAL THERAPEUTIC CERVICAL FACET BLOCK C3-C4, C4-T3KHOKNN OF PRE SEDATEVALIUM 10MG, OXYCODONE 10MGRESULT:WALE ZHENG 10/20/2020 5:16:32 PM > STARLA, COULD YOU PLEASE FILL IN THE RESULTS FOR THIS PROCEDURE LOG? THANKS! NOTES: ISTOP REGISTRY REVIEWED AND DEMONSTRATES COMPLLIANCE. BRINGS IN MEDICATIONS WHICH IS APPROPRIATE FOR WHAT WAS DISPENSED. RECENT URINE TOXICOLOGY REVIEWED. NO UNAUTHORIZED MEDICATIONS. NO ILLICIT SUBSTANCES AND PRESCRIBED MEDICATIONS WERE PRESENT. , RISKS OF NARCOTIC/OPIOD MEDICATIONS INCLUDES BUT IS NOT LIMITED TO RISK OF DEPENDANCE/DEVELOPMENT OF ADDICTION, MOOD DISTURBANCE AND DEPRESSION, OSTEOPOROSIS, HORMONAL AND LABIDAL CHANGES, RESPIRATORY DEPRESSION AND . PATIENT IS ADVISED NOT TO DRIVE OR DRINK ALCOHOL WHILE ON THESE MEDICATIONS. PROCEDURE CODES FA211 ESTABILISHED PATIENT [facility] CHARGE DISPOSITION & COMMUNICATION FOLLOW UP 3 MONTHS (REASON: MEDICATION MANAGEMENT, NECK PAIN, LOW BACK PAIN) ELECTRONICALLY SIGNED BY BRYANT MIXON ON 10/22/2020 AT 03:47 PM EDT DISCLAIMER : THIS IS A VISIT SUMMARY EXTRACTED FROM THE [facility]ART. IT IS NOT A COPY OF THE [facility] PROGRESS NOTE. MTDD
== END ==
LOC: M PAIN 11:15
PROVIDERS: ATTEND Nurse Practitioner Family
DX: M47.817 Spondylosis without myelopathy or radiculopathy, lumbosacral region (principal); M47.812 Spondylosis without myelopathy or radiculopathy, cervical region; G89.29 Other chronic pain; K21.9 Gastro-esophageal reflux disease without esophagitis; G43.909 Migraine, unspecified, not intractable, without status migrainosus; G25.81 Restless legs syndrome; D50.9 Iron deficiency anemia, unspecified; M79.10 Myalgia, unspecified site; Z88.0 Allergy status to penicillin; Z88.5 Allergy status to narcotic agent; Z88.6 Allergy status to analgesic agent; Z88.8 Allergy status to other drugs, medicaments and biological substances; Z91.09 Other allergy status, other than to drugs and biological substances; E66.01 Morbid (severe) obesity due to excess calories; Z68.41 Body mass index [BMI] 40.0-44.9, adult; Z79.891 Long term (current) use of opiate analgesic; Z79.899 Other long term (current) drug therapy

== ENCOUNTER → 2020-11-05 | Outpatient (CLI) | payer MEDICARE, MEDICAID | LOC: M LABSMTC 10:08 | PROVIDERS: ATTEND Anesthesiology | DX: Z01.812 Encounter for preprocedural laboratory examination (principal); Z20.822 Contact with and (suspected) exposure to COVID-19 ==

== ENCOUNTER 2020-11-10 11:34 | Day surgery (SDC) | payer MEDICARE, MEDICAID ==
[~2020-11-10] VITALS: Ht 152.4 cm; Wt 97.1 kg
[~2020-11-10 11:34] MED LIST changes: +NS 1,000 ML IV ONE
[2020-11-10] MEDS ORDERED: fentaNYL 100 MCG/2 ML INJECTION (J3010) As Ordered ONE (12:12)
[2020-11-10] MEDS ORDERED: LIDOCAINE 2% 100MG/5ML SDV (FOR ANES.) As Ordered ONE (12:13)
[2020-11-10] MEDS ORDERED: propofoL 200 MG/20 ML VIAL As Ordered ONE (12:13)
--- NOTE | 2020-11-10 12:54 | ROOR ---
Patient Name: Anamaria Velazquez Procedure Date: 11/10/2020 12:26 PM Date of : 1975 Age: 45 Room: [facility] Gender: Female Note Status: Finalized Procedure: Upper Endoscopy + Biopsies Indications: Generalized abdominal pain, Abdominal bloating, Nausea with vomiting Providers: Charles Huffman MD Referring MD: Elisa MCDUFFIE MD Requesting Provider: Medicines: Monitored Anesthesia Care Complications: No immediate complications. Procedure: Pre-Anesthesia Assessment: - The heart rate, respiratory rate, oxygen saturations, blood pressure, adequacy of pulmonary ventilation, and response to care were monitored throughout the procedure. The Endoscope was introduced through the mouth, and advanced to the second part of duodenum. The upper GI endoscopy was accomplished without difficulty. The patient tolerated the procedure well. Findings: The Z-line was regular and was found 35 cm from the incisors. Localized mild inflammation characterized by congestion (edema) and erythema was found on the greater curvature of the stomach. Biopsies were taken with a cold forceps for Helicobacter pylori testing. The exam of the duodenum was otherwise normal. Biopsies for histology were taken with a cold forceps in the first portion of the duodenum for evaluation of celiac disease. The exam was otherwise without abnormality. Impression: - Z-line regular, 35 cm from the incisors. - Mucosal changes suspicious for gastritis. Biopsied. - The examination was otherwise normal. - Biopsies were taken with a cold forceps for evaluation of celiac disease. - The examination was otherwise normal. Recommendation: - Patient has a contact number available for emergencies. The signs and symptoms of potential delayed complications were discussed with the patient. Return to normal activities tomorrow. Written discharge instructions were provided to the patient. - High fiber diet. - Discharge patient to home. - Follow an antireflux regimen. - Continue present medications. - Await pathology results. - Telephone GI clinic for pathology results in 1 week. - Return to referring physician. - The findings and recommendations were discussed with the patient. Procedure Code(s): --- Professional --- 31916, Esophagogastroduodenoscopy, flexible, transoral; with biopsy, single or multiple Diagnosis Code(s): --- Professional --- K31.89, Other diseases of stomach and duodenum R10.84, Generalized abdominal pain R14.0, Abdominal distension (gaseous) R11.2, Nausea with vomiting, unspecified CPT copyright 2019 [employer]. All rights reserved. The codes documented in this report are preliminary and upon packer denture review may be revised to meet current compliance requirements. Chalres Huffman MD Charles Huffman MD 11/10/2020 12:54:03 PM Electronically signed by Charles Huffman MD Number of Addenda: 0 Note Initiated On: 11/10/2020 12:26 PM Estimated Blood Loss: Estimated blood loss: none.
--- NOTE | 2020-11-10 12:57 | ROOR ---
Patient Name: Anamaria Velazquez Procedure Date: 11/10/2020 12:27 PM Date of : 1975 Age: 45 Room: [facility] Gender: Female Note Status: Finalized Procedure: Total Colonoscopy to Cecum + Bx. To r/o Microscopic Colitis Indications: Lower abdominal pain, Change in bowel habits Providers: Charles Huffman MD Referring MD: Elisa MCDUFFIE MD Requesting Provider: Medicines: Monitored Anesthesia Care Complications: No immediate complications. Procedure: Pre-Anesthesia Assessment: - The heart rate, respiratory rate, oxygen saturations, blood pressure, adequacy of pulmonary ventilation, and response to care were monitored throughout the procedure. The Colonoscope was introduced through the anus and advanced to the cecum, identified by appendiceal orifice and ileocecal valve. The colonoscopy was performed without difficulty. The patient tolerated the procedure well. The quality of the bowel preparation was good. Findings: The perianal and digital rectal examinations were normal. Non-bleeding internal hemorrhoids were found during retroflexion. The hemorrhoids were small and Grade I (internal hemorrhoids that do not prolapse). Multiple small and large-mouthed diverticula were found in the recto-sigmoid colon, sigmoid colon and descending colon. Biopsies for histology were taken with a cold forceps from the ascending colon, transverse colon and descending colon for evaluation of microscopic colitis. The exam was otherwise without abnormality. Impression: - Non-bleeding internal hemorrhoids. - Diverticulosis in the recto-sigmoid colon, in the sigmoid colon and in the descending colon. - The examination was otherwise normal. - Biopsies were taken with a cold forceps from the ascending colon, transverse colon and descending colon for evaluation of microscopic colitis. - The exam was otherwise normal to the cecum. Recommendation: - Patient has a contact number available for emergencies. The signs and symptoms of potential delayed complications were discussed with the patient. Return to normal activities tomorrow. Written discharge instructions were provided to the patient. - High fiber diet. - Discharge patient to home. - Continue present medications. - Await pathology results. - Telephone GI clinic for pathology results in 1 week. - Repeat colonoscopy in 10 years for screening purposes. - Return to referring physician. - The findings and recommendations were discussed with the patient. Procedure Code(s): --- Professional --- 60432, Colonoscopy, flexible; with biopsy, single or multiple Diagnosis Code(s): --- Professional --- K64.0, First degree hemorrhoids R10.30, Lower abdominal pain, unspecified R19.4, Change in bowel habit K57.30, Diverticulosis of large intestine without perforation or abscess without bleeding CPT copyright 2019 [employer]. All rights reserved. The codes documented in this report are preliminary and upon aircraft technician review may be revised to meet current compliance requirements. Charles Huffman MD Charles Huffman MD 11/10/2020 12:56:49 PM Electronically signed by Charles Huffman MD Number of Addenda: 0 Note Initiated On: 11/10/2020 12:27 PM Estimated Blood Loss: Estimated blood loss: none.
[2020-11-10 13:34] VITALS: BP 143/75
== END 2020-11-10 17:20 | disposition home or self-care (01) ==
LOC: M OPP 11:34
PROVIDERS: ATTEND Internal Medicine Gastroenterology
DX: K57.30 Diverticulosis of large intestine without perforation or abscess without bleeding (principal); K64.0 First degree hemorrhoids; R10.30 Lower abdominal pain, unspecified; R19.4 Change in bowel habit; K31.89 Other diseases of stomach and duodenum; R10.84 Generalized abdominal pain; R14.0 Abdominal distension (gaseous); R11.2 Nausea with vomiting, unspecified; Z79.891 Long term (current) use of opiate analgesic; Z79.899 Other long term (current) drug therapy; Z88.5 Allergy status to narcotic agent
CPT/HCPCS: 43239; 45380; 88305; J3010

== ENCOUNTER → 2020-12-13 | Outpatient (CLI) | payer MEDICARE, MEDICAID ==
[~2020-12-13] MED LIST changes: -NS 1,000 ML IV ONE
--- NOTE | 2020-12-14 23:15 | ECWPNPC ---
PATIENT NAME: DEEDEE SHEARER : 1975 GENDER: FEMALE VISIT DATE: 12/13/2020 DISCHARGE DATE: 12/13/20 1116 VISIT LOCKED DATE TIME: PHYSICIAN: STARLA CHEATHAM PHYSICIAN PAGER NO: ACTIVE RESOURCE: STARLA CHEATHAM REASON FOR APPOINTMENT 1. INCREASED BACK PAIN HISTORY OF PRESENT ILLNESS GENERAL: HERE FOR FOLLOW-UP OF CHRONIC NECK AND LOW BACK PAIN. PATIENT REPORTS A FALL INJURY A FEW WEEKS AGO INJURING HER LEFT SIDE. REPORTING LEFT SHOULDER PAIN AND IT GOES IN AND OUT DEPENDING ON POSITIONING OF HER ARM. SAW ORTHOPEDICS AFTER HER FALL PER PATIENT. STATES THAT SHE DID HAVE IMAGING. STATES SHE DOES NOT HAVE A FOLLOW-UP. PATIENT IS CONCERNED. I'VE ENCOURAGED HER TODAY TO KEEP APPOINTMENT WITH ORTHOPEDICS IF THERE IS NO MORE IMPROVEMENT AND ALSO HAVE THEM GO OVER ANY IMAGING STUDIES OF HER LEFT SHOULDER. COMPLAINING OF AN INCREASE IN LOW BACK PAIN AND ITS USUAL LOCATION SINCE FALL INJURY. DENIES BOWEL OR BLADDER INCONTINENCE. REVIEWED MRI OF THE CERVICAL AND LUMBAR SPINE AND DISCUSSED TREATMENT OPTIONS. -. FALL RISK SCREENING: SCREENING : NO FALLS REPORTED IN THE LAST YEAR, 2 WEEK AGO FALL FROM GETTING UP OFF THE BED TOO QUICKLY AND ON A CAT BOWL. PAIN SCREENING: PATIENT HAS A COMPLAINT OF ACUTE OR CHRONIC PAIN :YES LOCATION OF PAIN:LOW BACK INTENSITY OF PAIN (SCALE OF 1 TO 10):9 WHAT DOES YOUR PAIN FEEL LIKE:ACHING, BURNING, SHARP, STABBING, SORE, SHOOTING DURATION:CONTINOUS, CONSTANT, ALL DAY PAIN IS INCREASED BY:ACTIVITIES, PROLONGED STANDING PAIN IS DECREASED BY:OTHERS " MEDICATION IS NOT HELPING " NURSING NOTE: -. PAIN CENTER INTAKE QUESTIONS: DO YOU HAVE A HISTORY OF MRSA? :NO DO YOU TAKE A BLOOD THINNERS? :NO DO YOU HAVE ANY BLEEDING DISORDERS? :NO ANY NEW NUMBNESS OR WEAKNESS IN YOUR LEGS OR ARMS? :YES PAIN IS NOW IN HER LEFT OF THE BODY FROM THE FALL ANY PACEMAKER,DEFIBRILLATOR, OR DORSAL COLUMN STIMULATOR? :NO DO YOU HAVE ANY RASHES OR OPEN SORES? :NO ARE YOU ALLERGIC TO IV DYE? :NO ARE YOU DIABETIC? :NO ANY NEW PROBLEMS WITH YOUR MEDICATIONS? :NO HAVE YOU RECEIVED A VACCINE IN THE PAST 30 DAYS? :NO DO YOU PLAN TO RECEIVE A VACCINE IN THE NEXT 21 DAYS? :NO DO YOU NEED ANY PRESCRIPTION? :NO DO YOU TAKE ANY IMMUNOSUPPRESSIVE MEDICATIONS? :NO IS THERE A CHANCE YOU COULD BE ? :NO ARE YOU BREAST FEEDING? :NO CURRENT MEDICATIONS TAKING OXYBUTYNIN CHLORIDE ER 5 MG TAKE 1 TABLET BY MOUTH EVERY DAY TAKING ALBUTEROL SULFATE HFA 108 (90 BASE) MCG/ACT AEROSOL SOLUTION 2 PUFFS NEEDED INHALATION EVERY 4 HRS PRN SOB/WHEEZING TAKING EMGALITY 120 MG/ML SOLUTION AUTO-INJECTOR DIRECTED SUBCUTANEOUS MONTHLY TAKING PROMETHAZINE HCL 25 MG TABLET 1 TABLET NEEDED ORALLY EVERY 12 HRS PRN NAUSEA TAKING ALAVERT ALLERGY/SINUS 5-120 MG TABLET EXTENDED RELEASE 12 HOUR 1 TABLET NEEDED ORALLY EVERY 12 HRS TAKING VITAMIN C ER 1000 MG TABLET EXTENDED RELEASE 1 TABLET ORALLY ONCE A DAY TAKING SENOKOT S 8.6-50 MG TABLET 3 TAB ORALLY THREE TIMES A DAY TAKING VITAMIN D3 2000 UNIT CAPSULE 2 CAPSULES ORALLY ONCE A DAY TAKING FERROUS SULFATE 325 MG CAPSULE 1300 MG ORALLY TWICE A DAY TAKING E-Z SPACER 1 SPACER ICD10: J44.9 DIRECTED WITH PRN ALBUTEROL INHALER TAKING TRIAMCINOLONE ACETONIDE 0.1 % CREAM 1 APPLICATION EXTERNALLY TWO TIMES A WEEK TAKING OMEPRAZOLE 40 MG CAPSULE DELAYED RELEASE 1 CAPSULE 30 MINUTES BEFORE MORNING MEAL ORALLY ONCE A DAY TAKING TIZANIDINE HCL 4 MG TABLET 1 TABLET NEEDED ORALLY 1 TAB AT HS TAKING SPIRONOLACTONE 100 MG TABLET TAKE 1 TABLET BY MOUTH EVERY DAY TAKING ATORVASTATIN CALCIUM 40 MG TABLET TAKE 1 TABLET BY MOUTH EVERY DAY TAKING CYCLOBENZAPRINE HCL 10 MG TABLET 1 TAB ORALLY BID FOR SEVERE MUSCLE SPASM TAKING DIHYDROERGOTAMINE MESYLATE 1 MG/ML SOLUTION 1 ML EVERY HOUR NEEDED INJECTION TWICE A DAY TAKING UBRELVY 100 MG TABLET 1 TABLET MAY TAKE SECOND DOSE AT LEAST 2 HOURS AFTER FIRST DOSE NEEDED ORALLY ONCE A DAY TAKING MOBIC 15 MG TABLET 1 TABLET ORALLY ONCE A DAY NEEDED TAKING OXYCODONE HCL 10 MG TABLET 1 TABLET ORALLY Q12H BID MDD2 TAKING BACLOFEN 20 MG TABLET 1 TABLET ADMINISTER WITHOUT REGARDS TO MEALS NEEDED ORALLY ONCE A DAY NOT-TAKING PROCTOZONE-HC 2.5 % CREAM 1 APPLICATION TO AFFECTED AREA RECTAL TWICE A DAY NEEDED NOT-TAKING OXYCODONE HCL 10 MG TABLET 1 TABLET NEEDED ORALLY Q12H PRN MDD2 NOT-TAKING EMGALITY 120 MG/ML SOLUTION AUTO-INJECTOR DIRECTED SUBCUTANEOUS NOT-TAKING ZOLMITRIPTAN 5 MG TABLET 1 TABLET ORALLY ONCE A DAY NEEDED NOT-TAKING LYRICA 200 MG CAPSULE 1 CAPSULE 1 TO 3 HOURS BEFORE BEDTIME ORALLY THREE TIMES DAILY NOT-TAKING OXYBUTYNIN CHLORIDE ER 5 MG TABLET EXTENDED RELEASE 24 HOUR TAKE 1 TABLET BY MOUTH EVERY DAY ORALLY ONCE A DAY NOT-TAKING VERAPAMIL HCL ER 180 MG TABLET EXTENDED RELEASE 1 TABLET ORALLY TWICE A DAY NOT-TAKING PANTOPRAZOLE SODIUM 40 MG TABLET DELAYED RELEASE TAKE 1 TABLET BY MOUTH TWICE A DAY NOT-TAKING SPIRONOLACTONE 50 MG TABLET 1 TABLET ORALLY ONCE A DAY MEDICATION LIST REVIEWED AND RECONCILED WITH THE PATIENT PAST MEDICAL HISTORY GERD DDD, HERNIATED DISCS, SPINE ARTHRITIS COPD PER PATIENT CHRONIC MIGRAINES HX RIGHT ANKLE FX, LEFT FOOT FX, COCCYX FX R KNEE SCAR TISSUE OBESITY PCOS, HIRSUTISM HYPERLIPIDEMIA RESTLESS LEGS SYNDROME IRON DEFICIENCY ANEMIA CHRONIC FATIGUE IRREGULAR HEAVY MENSES ENDOMETRIOSIS INTERSTITIAL CYSTITIS REPORTED HISTORY OF COLONIC POLYPS ELEVATED 24 HR CORTISOL- SAW DR. GOMEZ, NO ADRENAL INSUFFICIENCY OCCIPITAL NEURALGIA CHRONIC PAIN DUE TO TRAUMA MYALGIA CONSTIPATION TUMOR UTERUS CHRONIC BACK AND NECK PAIN ALLERGIES TYLENOL: FEVER - ALLERGY ZANTAC: NUMBNESS ANDTINGLING IN HANDS AND SWOLLEN LIPS - ALLERGY HYDROCODONE-ACETAMINOPHEN: FEVER ,NAUSEA - ALLERGY PENICILLIN (FOR ALLERGIES USE ONLY): YEAST INFECTION - SIDE EFFECTS VENOFER: JOINT SWELLING - ALLERGY BANDAIDS/ADHESIVES: RASH - ALLERGY SOCIAL HISTORY GENERAL: TOBACCO USE ARE YOU A:NONSMOKER NEVER SMOKER LATEX QUESTIONNAIRE LATEX ALLERGY : HAVE YOU EVER DEVELOPED ANY TYPE OF REACTION AFTER HANDLING LATEX PRODUCTS SUCH RUBBER GLOVES, CONDOMS, DIAPHRAGMS, BALLOONS, SOCKS, OR UNDERWEAR?YES - PLEASE INDICATE :OTHER (DOCUMENT IN NOTES) SOME BANDAIDS LATEX ALLERGY : HAVE YOU EVER DEVELOPED ANY TYPE OF REACTION DURING OR AFTER DENTAL APPOINTMENT, VAGINAL/RECTAL EXAMINATION, SURGICAL PROCEDURE, OR ANY OTHER EXPOSURE?NO LATEX RISK : HAVE YOU EVER HAD ANY DIFFICULTY BREATHING OR HIVES AFTER EATING OR HANDLING ANY FRUITS, OR VEGETABLES; SUCH KIWI, BANANAS, STONE FRUITS, OR CHESTNUTSNO LATEX RISK : DO YOU HAVE A PREVIOUS PERSONAL HISTORY OF MORE THAN NINE SURGERIES, SPINA BIFIDA, OR REPEATED CATHERIZATIONS? NO LATEX RISK : ARE YOU FREQUENTLY EXPOSED TO LATEX PRODUCTS IN YOUR OCCUPATION?NO DATE ASKED : 12/13/2020 ALCOHOL USE: NO. ALCOHOL SCREENING DID YOU HAVE A DRINK CONTAINING ALCOHOL IN THE PAST YEAR?NO POINTS0 INTERPRETATIONNEGATIVE RECREATIONAL DRUG USE DRUG USE?NO CAFFEINE CAFFEINE USE?NO SEXUAL HX HAD SEX IN THE LAST 12 MONTHS (VAGINAL, ORAL, OR ANAL)?NO HAVE YOU EVER HAD AN STD?NO HIV / HEP-C SCREENING HIV TEST OFFERED TO PATIENT:YES DATE OFFERED:08/01/2017 TEST ACCEPTED:NO HEP-C TEST OFFERED TO PATIENT:NO REASON:PATIENT DECLINED BROCHURE PROVIDED TO PATIENTYES CONGREGATIONAL [id number] NONE OTHER LANGUAGE LANGUAGES SPOKEN:COLOMBIAN EDUCATION LEVEL OF EDUCATION:COLLEGE LEARNING BARRIERS / SPECIAL NEEDS CHANGE FROM LAST VISIT?NO BARRIERS TO LEARNING?NO HEARING IMPAIRED?NO VISION IMPAIRED?NO COGNITIVELY IMPAIRED?NO READINESS TO LEARN?YES LEARNING PREFERENCES?YES :DEMONSTRATION/VERBAL INSTRUCTION LEARNING CAPABILITIES PRESENT?YES EMOTIONAL BARRIERS?NO SPECIAL DEVICES?NO ZONING ASSISTANT NEEDED?NO DOMESTIC VIOLENCE DO YOU FEEL SAFE IN YOUR ENVIRONMENT?YES OCCUPATION: UNEMPLOYED. DIET: NO MSG ,GLUTEN FREE. EXERCISE: NONE. MARITAL STATUS: SINGLE. OTHERS AT HOME: SIBLING, IN-LAW(S). - WAS THE PROVIDER NOTIFIED OF ANY PERTINENT INFO?YES HAS THE PATIENT BEEN EDUCATED REGARDING HIS/HER PLAN OF CARE?YES HAS THE PATIENT BEEN EDUCATED REGARDING PAIN, THE RISK FOR PAIN, THE IMPORTANCE OF EFFECTIVE PAIN MANAGEMENT, AND THE PAIN ASSESSMENT PROCESS?YES ADVANCE DIRECTIVE ADVANCE DIRECTIVE DISCUSSED WITH PATIENT:YES HAS HCP- MALGORZATA VELASCO [phone] REVIEW OF SYSTEMS CONSTITUTIONAL: ANY RECENT FEVER NO . CHILLS NO . WEIGHT CHANGE OF UNKNOWN REASONS NO . GASTROENTEROLOGY: NEW UNEXPLAINABLE CHANGES IN BOWEL CONTROL NO . CONSTIPATION NO . GENITOURINARY: ANY NEW CHANGE IN BLADDER CONTROL? NO . NEUROLOGY: NEW ONSET DIZZINESS OR NEUROLOGICAL CHANGES NOT MENTIONED NO . NEW NUMBNESS OR PAIN PATTERNS NOT MENTIONED AND PERTINENT TO TODAY'S VISIT NO . CARDIOLOGY: NEW CHEST PRESSURE NO . PATIENT DENIES NO . RESPIRATORY: UNEXPLAINABLE COUGH NO . NEW SHORTNESS OF BREATH NO . VITAL SIGNS WT 220 LBS, HT 60 IN, BMI 42.96 INDEX, BP 141/72 MM HG, HR 69 /MIN, RR 18 /MIN, TEMP 97%, OXYGEN SAT % 97, SAFE IN ENV? (Y/N) YEST.ALMAZ CASTREJON. EXAMINATION GENERAL EXAMINATION: GENERAL AWAKE,ALERT ,PLEAASANT . PSYCH AFFECT NORMAL . LUNGS: LUNG QUINTERO ARE CLEAR TO AUSCULTATION BILATERALLY. GOOD MOVEMENT OF AIR . HEART: S1, S2 IN A REGULAR RATE AND RHYTHM. NO SIGNIFICANT MURMURS, RUBS OR GALLOPS NOTED . LUMBAR:PALPATION:TENDER OVER BILAT. SACROILIAC JOINTS. POSITIVE PIYUSH'S TESTING OVER LEFT LEG.. DIAGNOSTIC TESTS REVIEWED MRI L/S SPINE 2019. ASSESSMENTS SACROILIITIS - M46.1 (PRIMARY) TREATMENT SACROILIITIS CONTINUE MOBIC TABLET, 15 MG, 1 TABLET, ORALLY, ONCE A DAY NEEDED REFILL OXYCODONE HCL TABLET, 10 MG, 1 TABLET, ORALLY, Q12H BID MDD2, 30 DAYS, 60, REFILLS 0 STOP BACLOFEN TABLET, 20 MG, 1 TABLET ADMINISTER WITHOUT REGARDS TO MEALS NEEDED, ORALLY, ONCE A DAY MEDICATION: OXYCODONE HCL TAB 10MG ORALLY (ORDERED FOR 12/20/2020) MEDICATION: VALIUM TAB 10MG ORALLY (DIAZEPAM) (ORDERED FOR 12/20/2020) NOTES: BILATERAL SACROILIAC JOINT BLOCK , ISTOP REGISTRY REVIEWED AND DEMONSTRATES COMPLLIANCE.BRINGS IN MEDICATIONS WHICH IS APPROPRIATE FOR WHAT WAS DISPENSED. RECENT URINE TOXICOLOGY REVIEWED. NO UNAUTHORIZED MEDICATIONS. NO ILLICIT SUBSTANCES AND PRESCRIBED MEDICATIONS WERE PRESENT. VERBALIZED PRE PROCEDURE INFORMATION,PATIENT DECLINED ANY PRINTED INFORMATION, PATIENT ALSO VERBALIZED UNDERSTANDING LAUREN CASTREJON. PROCEDURE CODES FA211 ESTABILISHED PATIENT [facility] CHARGE DISPOSITION & COMMUNICATION FOLLOW UP POST (REASON: BILATERAL SACROILIAC JOINT BLOCK ) ELECTRONICALLY SIGNED BY BRYANT MIXON ON 12/14/2020 AT 04:02 PM EDT DISCLAIMER : THIS IS A VISIT SUMMARY EXTRACTED FROM THE [employer] CHART. IT IS NOT A COPY OF THE [employer] PROGRESS NOTE. JOHNNIE
== END ==
LOC: M PAIN 10:30
PROVIDERS: ATTEND Nurse Practitioner Family
DX: M46.1 Sacroiliitis, not elsewhere classified (principal); G89.29 Other chronic pain; K21.9 Gastro-esophageal reflux disease without esophagitis; G43.909 Migraine, unspecified, not intractable, without status migrainosus; G25.81 Restless legs syndrome; D50.9 Iron deficiency anemia, unspecified; Z88.0 Allergy status to penicillin; Z88.5 Allergy status to narcotic agent; Z88.6 Allergy status to analgesic agent; Z88.8 Allergy status to other drugs, medicaments and biological substances; Z91.09 Other allergy status, other than to drugs and biological substances; E66.01 Morbid (severe) obesity due to excess calories; Z68.41 Body mass index [BMI] 40.0-44.9, adult; Z79.891 Long term (current) use of opiate analgesic; Z79.899 Other long term (current) drug therapy

== ENCOUNTER → 2021-01-12 | Outpatient (CLI) | payer MEDICARE, MEDICAID | LOC: M LABSMTC 10:53 | PROVIDERS: ATTEND Anesthesiology | DX: Z01.812 Encounter for preprocedural laboratory examination (principal) ==

== ENCOUNTER → 2021-02-11 | Outpatient (CLI) | payer MEDICARE, MEDICAID | LOC: M LABSMTC 12:39 | PROVIDERS: ATTEND Anesthesiology | DX: Z20.828 Contact with and (suspected) exposure to other viral communicable diseases (principal); Z11.59 Encounter for screening for other viral diseases ==

== ENCOUNTER → 2021-02-16 | Outpatient (CLI) | payer MEDICARE ==
[~2021-02-16] MED LIST changes: +BUPIVACAINE HCL 0.25% 30ML VIAL As Ordered ONE; +ISOVUE-M 300 61% 15ML VIAL As Ordered ONE; +LIDOCAINE 1% SDV 30ML VIAL As Ordered ONE; +TRIAMCINOLONE ACETONIDE SUSP 40 MG/ML VIAL (J3301) As Ordered ONE; +diazePAM 5MG TABLET As Ordered ONE; +oxyCODONE 5MG TAB As Ordered ONE
--- NOTE | 2021-02-16 13:34 | REP ---
INDICATION: BILATERAL SIJ. COMPARISON: None. TECHNIQUE: Two views. 22.5 seconds of fluoroscopy time is reported. FINDINGS: A sequence of 2 last image hold fluoroscopically obtained spot radiographs of the SI joints bilaterally document needle position and contrast injection associated with injection procedure. IMPRESSION: Procedural imaging. <Electronically signed by Phu Subramanian > 02/16/21 [id number]
--- NOTE | 2021-02-18 02:38 | ECWPNPC ---
PATIENT NAME: DEEDEE SHEARER : 1975 GENDER: FEMALE VISIT DATE: 02/16/2021 DISCHARGE DATE: 02/16/21 1147 VISIT LOCKED DATE TIME: PHYSICIAN: DAVID NINO MD PHYSICIAN PAGER NO: ACTIVE RESOURCE: DAVID NINO MD REASON FOR APPOINTMENT 1. BILATERAL SACROILIAC JOINT BLOCK HISTORY OF PRESENT ILLNESS GENERAL: -. FALL RISK SCREENING: SCREENING : ONE FALL REPORTED IN THE LAST YEAR WITH INJURY, PT SEEING ORTHO FOR THIS. PAIN SCREENING: PATIENT HAS A COMPLAINT OF ACUTE OR CHRONIC PAIN :YES LOCATION OF PAIN:HEAD, LOW BACK 02/10/21 PATIENT REPORTS MIGRAINE HEADACHE TODAY INTENSITY OF PAIN (SCALE OF 1 TO 10):7 WHAT DOES YOUR PAIN FEEL LIKE:SHARP, STABBING, SORE, SHOOTING DURATION:CONTINOUS, AWAKENS FROM SLEEP PAIN IS INCREASED BY:ACTIVITIES PAIN IS DECREASED BY:USE OF PAIN MEDICATIONS, OTHERS PAIN PROCEDURES PLAN/GOALS/TREATMENT/INTERVENTION/FOLLOW UP:SEE PLAN NURSING NOTE: -. PAIN CENTER INTAKE QUESTIONS: DO YOU HAVE A HISTORY OF MRSA? :NO DO YOU TAKE A BLOOD THINNERS? :NO DO YOU HAVE ANY BLEEDING DISORDERS? :NO ANY NEW NUMBNESS OR WEAKNESS IN YOUR LEGS OR ARMS? :YES LEFT SHOULDER ANY PACEMAKER,DEFIBRILLATOR, OR DORSAL COLUMN STIMULATOR? :NO DO YOU HAVE ANY RASHES OR OPEN SORES? :NO ARE YOU ALLERGIC TO IV DYE? :NO ARE YOU DIABETIC? :NO ANY NEW PROBLEMS WITH YOUR MEDICATIONS? :NO HAVE YOU RECEIVED A VACCINE IN THE PAST 30 DAYS? :NO DO YOU PLAN TO RECEIVE A VACCINE IN THE NEXT 21 DAYS? :NO DO YOU TAKE ANY IMMUNOSUPPRESSIVE MEDICATIONS? :NO ANY HISTORY OF SEIZURES? :NO ANY HISTORY OF CARDIAC ISSUES OR EVENTS? :NO DO YOU HAVE ANY KIDNEY OR LIVER DISEASE? :NO DO YOU HAVE SLEEP APNEA? :NO ANY RECENT HEAD INJURY? :NO DO YOU HAVE ANY NEW INFECTIONS? :NO IS THERE A CHANCE YOU COULD BE ? :NO ARE YOU BREAST FEEDING? :NO WHEN DID YOU LAST EAT? : 02/15/211999 WHEN DID YOU LAST DRINK? : 0700 WHAT DID YOU LAST DRINK? : WATER NAME OF PERSON DRIVING YOU HOME? : VTC DO YOU HAVE ANY OTHER QUESTIONS OR CONCERNS? : NO CURRENT MEDICATIONS TAKING OXYBUTYNIN CHLORIDE ER 5 MG TAKE 1 TABLET BY MOUTH EVERY DAY TAKING ALBUTEROL SULFATE HFA 108 (90 BASE) MCG/ACT AEROSOL SOLUTION 2 PUFFS NEEDED INHALATION EVERY 4 HRS PRN SOB/WHEEZING TAKING EMGALITY 120 MG/ML SOLUTION AUTO-INJECTOR DIRECTED SUBCUTANEOUS MONTHLY, NOTES: 01/21/21 TAKING PROMETHAZINE HCL 25 MG TABLET 1 TABLET NEEDED ORALLY EVERY 12 HRS PRN NAUSEA TAKING ALAVERT ALLERGY/SINUS 5-120 MG TABLET EXTENDED RELEASE 12 HOUR 1 TABLET NEEDED ORALLY EVERY 12 HRS TAKING VITAMIN C ER 1000 MG TABLET EXTENDED RELEASE 1 TABLET ORALLY ONCE A DAY TAKING SENOKOT S 8.6-50 MG TABLET 3 TAB ORALLY THREE TIMES A DAY TAKING VITAMIN D3 2000 UNIT CAPSULE 2 CAPSULES ORALLY ONCE A DAY TAKING FERROUS SULFATE 325 MG CAPSULE 1300 MG ORALLY TWICE A DAY TAKING E-Z SPACER 1 SPACER ICD10: J44.9 DIRECTED WITH PRN ALBUTEROL INHALER TAKING OMEPRAZOLE 40 MG CAPSULE DELAYED RELEASE 1 CAPSULE 30 MINUTES BEFORE MORNING MEAL ORALLY ONCE A DAY TAKING TIZANIDINE HCL 4 MG TABLET 1 TABLET NEEDED ORALLY 1 TAB AT HS, NOTES: 02/15/212099 TAKING SPIRONOLACTONE 100 MG TABLET TAKE 1 TABLET BY MOUTH EVERY DAY TAKING ATORVASTATIN CALCIUM 40 MG TABLET TAKE 1 TABLET BY MOUTH EVERY DAY TAKING DIHYDROERGOTAMINE MESYLATE 1 MG/ML SOLUTION 1 ML EVERY HOUR NEEDED INJECTION TWICE A DAY, NOTES: NONE RECENTLY TAKING UBRELVY 100 MG TABLET 1 TABLET MAY TAKE SECOND DOSE AT LEAST 2 HOURS AFTER FIRST DOSE NEEDED ORALLY ONCE A DAY TAKING BACLOFEN 20 MG TABLET 1 TABLET ADMINISTER WITHOUT REGARDS TO MEALS NEEDED ORALLY TWICE A DAY, NOTES: 02/15/21 1600 TAKING OXYCODONE HCL 10 MG TABLET 1 TABLET ORALLY Q12H BID MDD2 90D SUPPLY CATD CHRONIC PAIN, NOTES: 02/15/212099 TAKING MOBIC 15 MG TABLET 1 TABLET ORALLY ONCE A DAY NEEDED, NOTES: 02/15/212099 NOT-TAKING CYCLOBENZAPRINE HCL 10 MG TABLET 1 TAB ORALLY BID FOR SEVERE MUSCLE SPASM NOT-TAKING TRIAMCINOLONE ACETONIDE 0.1 % CREAM 1 APPLICATION EXTERNALLY TWO TIMES A WEEK NOT-TAKING PROCTOZONE-HC 2.5 % CREAM 1 APPLICATION TO AFFECTED AREA RECTAL TWICE A DAY NEEDED NOT-TAKING OXYCODONE HCL 10 MG TABLET 1 TABLET NEEDED ORALLY Q12H PRN MDD2 NOT-TAKING EMGALITY 120 MG/ML SOLUTION AUTO-INJECTOR DIRECTED SUBCUTANEOUS NOT-TAKING ZOLMITRIPTAN 5 MG TABLET 1 TABLET ORALLY ONCE A DAY NEEDED NOT-TAKING LYRICA 200 MG CAPSULE 1 CAPSULE 1 TO 3 HOURS BEFORE BEDTIME ORALLY THREE TIMES DAILY NOT-TAKING OXYBUTYNIN CHLORIDE ER 5 MG TABLET EXTENDED RELEASE 24 HOUR TAKE 1 TABLET BY MOUTH EVERY DAY ORALLY ONCE A DAY NOT-TAKING VERAPAMIL HCL ER 180 MG TABLET EXTENDED RELEASE 1 TABLET ORALLY TWICE A DAY NOT-TAKING PANTOPRAZOLE SODIUM 40 MG TABLET DELAYED RELEASE TAKE 1 TABLET BY MOUTH TWICE A DAY NOT-TAKING SPIRONOLACTONE 50 MG TABLET 1 TABLET ORALLY ONCE A DAY MEDICATION LIST REVIEWED AND RECONCILED WITH THE PATIENT PAST MEDICAL HISTORY GERD DDD, HERNIATED DISCS, SPINE ARTHRITIS COPD PER PATIENT CHRONIC MIGRAINES HX RIGHT ANKLE FX, LEFT FOOT FX, COCCYX FX R KNEE SCAR TISSUE OBESITY PCOS, HIRSUTISM HYPERLIPIDEMIA RESTLESS LEGS SYNDROME IRON DEFICIENCY ANEMIA CHRONIC FATIGUE IRREGULAR HEAVY MENSES ENDOMETRIOSIS INTERSTITIAL CYSTITIS REPORTED HISTORY OF COLONIC POLYPS ELEVATED 24 HR CORTISOL- SAW DR. GOMEZ, NO ADRENAL INSUFFICIENCY OCCIPITAL NEURALGIA CHRONIC PAIN DUE TO TRAUMA MYALGIA CONSTIPATION TUMOR UTERUS CHRONIC BACK AND NECK PAIN ALLERGIES TYLENOL: FEVER - ALLERGY ZANTAC: NUMBNESS ANDTINGLING IN HANDS AND SWOLLEN LIPS - ALLERGY HYDROCODONE-ACETAMINOPHEN: FEVER ,NAUSEA - ALLERGY PENICILLIN (FOR ALLERGIES USE ONLY): YEAST INFECTION - SIDE EFFECTS VENOFER: JOINT SWELLING - ALLERGY BANDAIDS/ADHESIVES: RASH - ALLERGY SOCIAL HISTORY GENERAL: TOBACCO USE ARE YOU A:NONSMOKER NEVER SMOKER LATEX QUESTIONNAIRE LATEX ALLERGY : HAVE YOU EVER DEVELOPED ANY TYPE OF REACTION AFTER HANDLING LATEX PRODUCTS SUCH RUBBER GLOVES, CONDOMS, DIAPHRAGMS, BALLOONS, SOCKS, OR UNDERWEAR?YES - PLEASE INDICATE :OTHER (DOCUMENT IN NOTES) SOME BANDAIDS LATEX ALLERGY : HAVE YOU EVER DEVELOPED ANY TYPE OF REACTION DURING OR AFTER DENTAL APPOINTMENT, VAGINAL/RECTAL EXAMINATION, SURGICAL PROCEDURE, OR ANY OTHER EXPOSURE?NO LATEX RISK : HAVE YOU EVER HAD ANY DIFFICULTY BREATHING OR HIVES AFTER EATING OR HANDLING ANY FRUITS, OR VEGETABLES; SUCH KIWI, BANANAS, STONE FRUITS, OR CHESTNUTSNO LATEX RISK : DO YOU HAVE A PREVIOUS PERSONAL HISTORY OF MORE THAN NINE SURGERIES, SPINA BIFIDA, OR REPEATED CATHERIZATIONS? NO LATEX RISK : ARE YOU FREQUENTLY EXPOSED TO LATEX PRODUCTS IN YOUR OCCUPATION?NO DATE ASKED : 02/10/2021 ALCOHOL USE: NO. ALCOHOL SCREENING DID YOU HAVE A DRINK CONTAINING ALCOHOL IN THE PAST YEAR?NO POINTS0 INTERPRETATIONNEGATIVE RECREATIONAL DRUG USE DRUG USE?NO CAFFEINE CAFFEINE USE?NO SEXUAL HX HAD SEX IN THE LAST 12 MONTHS (VAGINAL, ORAL, OR ANAL)?NO HAVE YOU EVER HAD AN STD?NO HIV / HEP-C SCREENING HIV TEST OFFERED TO PATIENT:YES DATE OFFERED:08/01/2017 TEST ACCEPTED:NO HEP-C TEST OFFERED TO PATIENT:NO REASON:PATIENT DECLINED BROCHURE PROVIDED TO PATIENTYES RESTORATIONISM [id number] NONE OTHER LANGUAGE LANGUAGES SPOKEN:MALTESE EDUCATION LEVEL OF EDUCATION:COLLEGE LEARNING BARRIERS / SPECIAL NEEDS CHANGE FROM LAST VISIT?NO BARRIERS TO LEARNING?NO HEARING IMPAIRED?NO VISION IMPAIRED?NO COGNITIVELY IMPAIRED?NO READINESS TO LEARN?YES LEARNING PREFERENCES?YES :DEMONSTRATION/VERBAL INSTRUCTION LEARNING CAPABILITIES PRESENT?YES EMOTIONAL BARRIERS?NO SPECIAL DEVICES?NO CROSS COUNTRY/TRACK AND FIELD COACH NEEDED?NO DOMESTIC VIOLENCE DO YOU FEEL SAFE IN YOUR ENVIRONMENT?YES OCCUPATION: UNEMPLOYED. DIET: NO MSG ,GLUTEN FREE. EXERCISE: NONE. MARITAL STATUS: SINGLE. OTHERS AT HOME: SIBLING, IN-LAW(S). - WAS THE PROVIDER NOTIFIED OF ANY PERTINENT INFO?YES HAS THE PATIENT BEEN EDUCATED REGARDING HIS/HER PLAN OF CARE?YES HAS THE PATIENT BEEN EDUCATED REGARDING PAIN, THE RISK FOR PAIN, THE IMPORTANCE OF EFFECTIVE PAIN MANAGEMENT, AND THE PAIN ASSESSMENT PROCESS?YES ADVANCE DIRECTIVE ADVANCE DIRECTIVE DISCUSSED WITH PATIENT:YES HAS HCP- MALGORZATA VELASCO [phone] VITAL SIGNS WT 213.0 LBS, HT 60 IN, BMI 41.59 INDEX, BP 117/72 MM HG, HR 80 /MIN, RR 18 /MIN, TEMP 96.0 F, OXYGEN SAT % 98%, SAFE IN ENV? (Y/N) YES, NA INITIALS AW 1007, REVIEWED BY: APA. SANJANA RN. EXAMINATION GENERAL: THE PATIENT IS ALERT, ORIENTED TIMES THREE AND COOPERATIVE. LUNGS ARE CLEAR TO AUSCULTATION. HEART SHOWS REGULAR RHYTHM, NO MURMURS AND NO GALLOPS. ASSESSMENTS SACROILIITIS - M46.1 (PRIMARY) TREATMENT SACROILIITIS [facility] FLUORO GUIDANCE (PAIN)[id number] COMPLETION OF PROCEDURAL VISIT WHEN MEETS CRITERIAGRIFFIN ALLAN 02/16/2021 11:46:58 AM > CRITERIA MET MEDICATION: PAIN VALIUM TAB 10MG ORALLY (DIAZEPAM)WALE GUTIERREZ 02/16/2021 10:30:50 AM > VERIFIED. GRIFFIN ALLAN 02/16/2021 10:32:06 AM > ADMINISTERED MEDICATION: PAIN OXYCODONE HCL TAB 10MG ORALLYSYLVERWALE 02/16/2021 10:31:15 AM > VERIFIED. PETRAS,GRIFFIN R 02/16/2021 10:32:40 AM > ADMINISTERED OTHERS NOTES: 02/10/21 PAT COMPLETED. Michael SAM H[employer]OURCES OFFICE MANAGER. PROCEDURES PAIN NURSING RECORD PROCEDURE IN ROOM 1057, PHYSICIAN IN ROOM 1123, START 1126, FINISH 1130, PHYSICIAN OUT OF ROOM 1131, OUT OF ROOM 1137, ECG NORMAL SINUS, PATIENT SHIELDED YES, SAFETY STRAP YES, PREP CHLOROPREP Armando ALLAN RN, DRESSING TEGADERM DR. NINO LOC: PETRAS,GRIFFIN R 02/16/2021 11:26:40 AM > , 1. ALERT, ORIENTED RESP: PETRAS,GRIFFIN R 02/16/2021 11:26:42 AM > , 1. REGULAR, NO DYSPNEA COLOR: PETRAS,GRIFFIN R 02/16/2021 11:26:46 AM > , 1. PINK SKIN: PETRAS,GRIFFIN R 02/16/2021 11:26:50 AM > , 1. WARM, DRY POSITION: PETRAS,GRIFFIN R 02/16/2021 11:26:54 AM > , 1. PRONE VITALS: 1044 P71 0296% BP 123/64 AW PETRAS,GRIFFIN R 02/16/2021 10:59:34 AM > 125/66, 68, 18, 96% PETRAS,GRIFFIN R 02/16/2021 11:11:07 AM > 119/60, 70, 18, 94% PETRAS,GRIFFIN R 02/16/2021 11:25:59 AM > 128/74, 65, 18. 94% PETRAS,GRIFFIN R 02/16/2021 11:35:29 AM >117/77, 75, 18, 99% , PETRAS,GRIFFIN R 02/16/2021 11:45:44 AM > 122/84, 77, 18, 100% COMPLETION OF PROCEDURE APPOINTMENT: POST PAIN 4, DRESSING SITE DRY AND INTACT, IV N/A, GAIT STEADY, TEACHING COMPLETED, PATIENT ACKNOWLEDGES UNDERSTANDING YES, PROCEDURE APPOINTMENT COMPLETED AT 1147 BY: A. PETRAS RN PN SI PRE PROCEDURE DIAGNOSIS SACROILIITIS, SACROILIAC JOINT DYSFUNCTION POST PROCEDURE DIAGNOSIS SACROILIITIS, SACROILIAC JOINT DYSFUNCTION PROCEDURE BILATERAL SACROILIAC JOINT BLOCK SURGEON DR. DAVID NINO ADJUSTO WRITER OPERATOR NONE ANESTHESIA LOCAL PRE PROCEDURE NOTE THE PATIENT WITH HISTORY OF CHRONIC LOW BACK PAIN. I EVALUATED THE PATIENT AND REVIEWED THE CHART. I WENT OVER THE RISKS, ALTERNATIVES, AND BENEFITS ASSOCIATED WITH THIS PROCEDURE. THE PATIENT WOULD LIKE TO PROCEED AND GAVE CONSENT TO PERFORM THE PROCEDURE. THE PATIENT DENIES UNEXPLAINABLE WEIGHT LOSS, FEVER, CHILLS, OR NEW CHANGES IN URINARY OR BOWEL CONTROL. THE PATIENT IS COVID-19 NEGATIVE DESCRIPTION OF PROCEDURE THE PATIENT WAS BROUGHT TO THE PROCEDURE ROOM AND PLACED IN THE PRONE POSITION. THE LUMBOSACRAL AREA WAS CLEANED WITH CHLORAPREP SOLUTION AND DRAPED ASEPTICALLY. THE PROCEDURE WAS DONE UNDER STERILE CONDITIONS. A TIMEOUT WAS PERFORMED WHERE THE CONSENTED SITE WAS VERIFIED WITH EVERYONE IN THE ROOM. UNDER FLUOROSCOPIC GUIDANCE, THE TARGET POINT WAS SELECTED AT THE LOWER BORDER OF THE RIGHT AND LEFT SACROILIAC JOINT. TARGET POINT WAS SELECTED AFTER MEDIAL ROTATION AND TILT OF THE MAGNIFIER OR THE C-ARM. I CONFIRMED AGAIN THE SITE OF TARGET. LIDOCAINE 0.5% WAS USED TO NUMB THE SKIN AND THE SUBCUTANEOUS TISSUE BELOW IT. SPINAL NEEDLES, 22-GAUGE, WERE ADVANCED UNDER FLUOROSCOPIC GUIDANCE AND FOLLOWING PATIENT FEEDBACK UNTIL THE TARGETS WERE TOUCHED. THE POSITION OF THE NEEDLES WAS VERIFIED WITH AP AND OBLIQUE VIEWS. AFTER PROPER POSITION OF THE NEEDLES WAS ACHIEVED, ISOVUE-M DYE 30%, 0.1 ML, WAS INJECTED SHOWING ADEQUATE SPREAD OF THE DYE. KENALOG 40 MG WAS INJECTED AT EACH SITE. THEN, A SOLUTION OF 3.0 ML OF BUPIVACAINE 0.125% WAS USED TO FLUSH EACH NEEDLE. THE MEDICATIONS WERE VERIFIED WITH THE NURSE. THERE WAS NO EVIDENCE OF BLOOD, PARESTHESIA OR CEREBROSPINAL FLUID DURING THE PROCEDURE. THE PATIENT WAS SENT TO THE RECOVERY ROOM. THE PATIENT WAS MOVING THE EXTREMITIES AND DOING WELL. THERE WERE NO COMPLICATIONS DURING THE PROCEDURE. ESTIMATED BLOOD LOSS WAS LESS THAN 5 ML. FLUOROSCOPIC TIME WAS 22 SECONDS. POST PROCEDURE NOTE I WOULD LIKE TO TALK TO HER NEUROLOGIST ABOUT USING DILAUDID FOR MIGRAINES. THE PROCEDURE DONE WAS DISCUSSED WITH THE PATIENT. THE PATIENT WILL BE SEEN IN A FOLLOW UP IN THE NEXT FEW WEEKS. I AM LOOKING FOR LONG LASTING PAIN RELIEF FOR THE PATIENT WITH THIS INTERVENTION. INSTRUCTIONS WERE GIVEN, QUESTIONS WERE ANSWERED, AND THE PATIENT EXPRESSED UNDERSTANDING AND AGREES WITH THE PLAN. I, HONEY BARILLAS, DOCUMENTED THE ABOVE INFORMATION ACTING A SCRIBE FOR DR. NINO. I HAVE REVIEWED THE ABOVE DOCUMENT, WRITTEN BY HONEY BARILLAS, OPERATIONS COORDINATOR, AND I VERIFY THAT IT IS ACCURATE PROCEDURE CODES 46271 INJECT SACROILIAC JOINT, MODIFIERS: 50 DISPOSITION & COMMUNICATION FOLLOW UP FOLLOW UP WITH HOLLOW TILE PARTITION ERECTOR (REASON: POST BILATERAL SACROILIAC JOINT BLOCK) ELECTRONICALLY SIGNED BY DAVID NINO MD, MD ON 02/17/2021 AT 12:10 PM EDT DISCLAIMER : THIS IS A VISIT SUMMARY EXTRACTED FROM THE [employer] CHART. IT IS NOT A COPY OF THE [employer] PROGRESS NOTE. JOHNNIE
== END ==
LOC: M PAIN 10:00
PROVIDERS: ATTEND Anesthesiology
DX: M46.1 Sacroiliitis, not elsewhere classified (principal); K21.9 Gastro-esophageal reflux disease without esophagitis; J44.9 Chronic obstructive pulmonary disease, unspecified; G43.709 Chronic migraine without aura, not intractable, without status migrainosus; E66.9 Obesity, unspecified; E78.5 Hyperlipidemia, unspecified; E28.2 Polycystic ovarian syndrome; L68.0 Hirsutism; D50.9 Iron deficiency anemia, unspecified; G25.81 Restless legs syndrome; R53.82 Chronic fatigue, unspecified; K59.00 Constipation, unspecified; Z79.891 Long term (current) use of opiate analgesic; Z79.899 Other long term (current) drug therapy; Z88.0 Allergy status to penicillin; Z88.6 Allergy status to analgesic agent; Z88.8 Allergy status to other drugs, medicaments and biological substances; Z91.048 Other nonmedicinal substance allergy status; Z68.41 Body mass index [BMI] 40.0-44.9, adult
CPT/HCPCS: G0260; J3301; Q9967

== ENCOUNTER → 2021-03-02 | Outpatient (CLI) | payer MEDICARE ==
[~2021-03-02] MED LIST changes: -BUPIVACAINE HCL 0.25% 30ML VIAL As Ordered ONE; -ISOVUE-M 300 61% 15ML VIAL As Ordered ONE; -LIDOCAINE 1% SDV 30ML VIAL As Ordered ONE; -TRIAMCINOLONE ACETONIDE SUSP 40 MG/ML VIAL (J3301) As Ordered ONE; -diazePAM 5MG TABLET As Ordered ONE; -oxyCODONE 5MG TAB As Ordered ONE
== END ==
LOC: M PAIN 11:00
PROVIDERS: ATTEND Anesthesiology
DX: M47.816 Spondylosis without myelopathy or radiculopathy, lumbar region (principal); G89.29 Other chronic pain; K21.9 Gastro-esophageal reflux disease without esophagitis; G43.909 Migraine, unspecified, not intractable, without status migrainosus; G25.81 Restless legs syndrome; D50.9 Iron deficiency anemia, unspecified; M79.10 Myalgia, unspecified site; Z88.0 Allergy status to penicillin; Z88.5 Allergy status to narcotic agent; Z88.6 Allergy status to analgesic agent; Z88.8 Allergy status to other drugs, medicaments and biological substances; Z91.09 Other allergy status, other than to drugs and biological substances; E66.01 Morbid (severe) obesity due to excess calories; Z68.41 Body mass index [BMI] 40.0-44.9, adult; Z79.891 Long term (current) use of opiate analgesic; Z79.899 Other long term (current) drug therapy

== ENCOUNTER → 2021-03-10 | Outpatient (CLI) | payer MEDICARE | LOC: M LABSMTC 12:49 | PROVIDERS: ATTEND Anesthesiology | DX: Z11.52 Encounter for screening for COVID-19 (principal) ==

== ENCOUNTER → 2021-03-15 | Outpatient (CLI) | payer MEDICARE ==
[~2021-03-15] MED LIST changes: +BUPIVACAINE HCL 0.25% 30ML VIAL As Ordered ONE; +ISOVUE-M 300 61% 15ML VIAL As Ordered ONE; +LIDOCAINE 1% SDV 30ML VIAL As Ordered ONE
--- NOTE | 2021-03-15 12:29 | REP ---
INDICATION: BILATERAL DIAGNOSTIC LUMBAR FACET BLOCK #1. COMPARISON: None. TECHNIQUE: Four views. Thirty-five seconds of fluoroscopy time is reported. FINDINGS: A sequence of 4 last image hold fluoroscopically obtained spot radiograph(s) of the lumbar spine document(s) needle position(s) and contrast injection associated with injection procedure. IMPRESSION: Procedural imaging. <Electronically signed by Phu Subramanian > 03/15/21 0287
== END ==
LOC: M PAIN 10:20
PROVIDERS: ATTEND Anesthesiology
DX: M47.817 Spondylosis without myelopathy or radiculopathy, lumbosacral region (principal); G47.30 Sleep apnea, unspecified; K21.9 Gastro-esophageal reflux disease without esophagitis; G43.909 Migraine, unspecified, not intractable, without status migrainosus; G25.81 Restless legs syndrome; D50.9 Iron deficiency anemia, unspecified; M79.10 Myalgia, unspecified site; Z88.0 Allergy status to penicillin; Z88.5 Allergy status to narcotic agent; Z88.6 Allergy status to analgesic agent; Z88.8 Allergy status to other drugs, medicaments and biological substances; Z91.09 Other allergy status, other than to drugs and biological substances; E66.01 Morbid (severe) obesity due to excess calories; Z68.41 Body mass index [BMI] 40.0-44.9, adult; Z79.891 Long term (current) use of opiate analgesic; Z79.899 Other long term (current) drug therapy
CPT/HCPCS: 64493; Q9967

== ENCOUNTER → 2021-03-16 | Outpatient (CLI) | payer MEDICARE ==
[~2021-03-16] MED LIST changes: -BUPIVACAINE HCL 0.25% 30ML VIAL As Ordered ONE; -ISOVUE-M 300 61% 15ML VIAL As Ordered ONE; -LIDOCAINE 1% SDV 30ML VIAL As Ordered ONE
--- NOTE | 2021-03-20 23:08 | ECWPNPC ---
PATIENT NAME: DEEDEE SHEARER : 1975 GENDER: FEMALE VISIT DATE: 03/16/2021 DISCHARGE DATE: 03/16/21 1156 VISIT LOCKED DATE TIME: PHYSICIAN: DAVID NINO MD PHYSICIAN PAGER NO: ACTIVE RESOURCE: DAVID NINO MD REASON FOR APPOINTMENT 1. POST BILATERAL DIAGNOSTIC LUMBAR FACET BLOCK L5-S1 #1 HISTORY OF PRESENT ILLNESS GENERAL: 46 YEAR-OLD FEMALE PATIENT WITH A HISTORY OF CHRONIC LOW BACK PAIN. THE PATIENT DESCRIBES THE PAIN CONTINUOUS WITH PRESSURE WITH A PAIN SCORE RANGING FROM 8/10. THE PATIENT HAD A L5-S1 DIAGNOSTIC TEST #1. THE PAIN WENT DOWN MORE THAN 80%, ON THE LEFT SIDE 2 AND ON THE RIGHT SIDE 1. SHE SAYS THAT IT WORK BETTER IN THE RIGHT SIDE BUT EXTREMELY USEFUL ALSO IN THE LEFT SIDE WITH REDUCTION OF PAIN AND INCREASE FUNCTIONALITY. SHE WAS SATISFIED WITH THE BLOCK AND THEN THE PAIN STARTED TO COME BACK. FALL RISK SCREENING: SCREENING : NO FALLS REPORTED IN THE LAST YEAR , : NO FALLS REPORTED IN THE LAST YEAR. PAIN SCREENING: PATIENT HAS A COMPLAINT OF ACUTE OR CHRONIC PAIN :YES LOCATION OF PAIN:LOW BACK INTENSITY OF PAIN (SCALE OF 1 TO 10):6 WHAT DOES YOUR PAIN FEEL LIKE: PRESSURE DURATION:CONTINOUS PAIN IS INCREASED BY:ACTIVITIES PAIN IS DECREASED BY:USE OF PAIN MEDICATIONS NURSING NOTE: -. PAIN CENTER INTAKE QUESTIONS: DO YOU HAVE A HISTORY OF MRSA? :NO DO YOU TAKE A BLOOD THINNERS? :NO DO YOU HAVE ANY BLEEDING DISORDERS? :NO ANY NEW NUMBNESS OR WEAKNESS IN YOUR LEGS OR ARMS? :NO ANY PACEMAKER,DEFIBRILLATOR, OR DORSAL COLUMN STIMULATOR? :NO DO YOU HAVE ANY RASHES OR OPEN SORES? :NO ARE YOU ALLERGIC TO IV DYE? :NO ARE YOU DIABETIC? :NO ANY NEW PROBLEMS WITH YOUR MEDICATIONS? :NO HAVE YOU RECEIVED A VACCINE IN THE PAST 30 DAYS? :NO DO YOU PLAN TO RECEIVE A VACCINE IN THE NEXT 21 DAYS? :NO DO YOU NEED ANY PRESCRIPTION? :NO DO YOU TAKE ANY IMMUNOSUPPRESSIVE MEDICATIONS? :NO ANY HISTORY OF SEIZURES? :NO ANY HISTORY OF CARDIAC ISSUES OR EVENTS? :NO DO YOU HAVE ANY KIDNEY OR LIVER DISEASE? :NO DO YOU HAVE SLEEP APNEA? :YES DO YOU WEAR A CPAP?NO POSITIVE MARYAM, NEGATIVE SLEEP STUDY. ANY RECENT HEAD INJURY? :NO DO YOU HAVE ANY NEW INFECTIONS? :YES REPORTED SINUS INFECTION, WALK IN CLINIC IN [place] STOPPED ABX LAST WEEK, DENIES CURRENT S/S OF SINUS INFECTION. IS THERE A CHANCE YOU COULD BE ? :NO ARE YOU BREAST FEEDING? :NO DO YOU HAVE ANY OTHER QUESTIONS OR CONCERNS? : NO CURRENT MEDICATIONS TAKING OXYBUTYNIN CHLORIDE ER 5 MG TAKE 1 TABLET BY MOUTH EVERY DAY TAKING ALBUTEROL SULFATE HFA 108 (90 BASE) MCG/ACT AEROSOL SOLUTION 2 PUFFS NEEDED INHALATION EVERY 4 HRS PRN SOB/WHEEZING TAKING EMGALITY 120 MG/ML SOLUTION AUTO-INJECTOR DIRECTED SUBCUTANEOUS MONTHLY TAKING PROMETHAZINE HCL 25 MG TABLET 1 TABLET NEEDED ORALLY EVERY 12 HRS PRN NAUSEA TAKING ALAVERT ALLERGY/SINUS 5-120 MG TABLET EXTENDED RELEASE 12 HOUR 1 TABLET NEEDED ORALLY EVERY 12 HRS TAKING VITAMIN C ER 1000 MG TABLET EXTENDED RELEASE 1 TABLET ORALLY ONCE A DAY TAKING SEN[place]OT S 8.6-50 MG TABLET 3 TAB ORALLY THREE TIMES A DAY TAKING VITAMIN D3 2000 UNIT CAPSULE 2 CAPSULES ORALLY ONCE A DAY TAKING FERROUS SULFATE 325 MG CAPSULE 1300 MG ORALLY TWICE A DAY TAKING E-Z SPACER 1 SPACER ICD10: J44.9 DIRECTED WITH PRN ALBUTEROL INHALER TAKING OMEPRAZOLE 40 MG CAPSULE DELAYED RELEASE 1 CAPSULE 30 MINUTES BEFORE MORNING MEAL ORALLY ONCE A DAY TAKING TIZANIDINE HCL 4 MG TABLET 1 TABLET NEEDED ORALLY 1 TAB AT HS TAKING SPIRONOLACTONE 100 MG TABLET TAKE 1 TABLET BY MOUTH EVERY DAY TAKING ATORVASTATIN CALCIUM 40 MG TABLET TAKE 1 TABLET BY MOUTH EVERY DAY TAKING DIHYDROERGOTAMINE MESYLATE 1 MG/ML SOLUTION 1 ML EVERY HOUR NEEDED INJECTION TWICE A DAY TAKING UBRELVY 100 MG TABLET 1 TABLET MAY TAKE SECOND DOSE AT LEAST 2 HOURS AFTER FIRST DOSE NEEDED ORALLY ONCE A DAY TAKING BACLOFEN 20 MG TABLET 1 TABLET ADMINISTER WITHOUT REGARDS TO MEALS NEEDED ORALLY TWICE A DAY TAKING OXYCODONE HCL 10 MG TABLET 1 TABLET ORALLY Q12H BID MDD2 90D SUPPLY CATD CHRONIC PAIN TAKING MOBIC 15 MG TABLET 1 TABLET ORALLY ONCE A DAY NEEDED TAKING DILAUDID 4 MG TABLET 1 TABLET NEEDED ORALLY FOR PAIN DAILY (CODE D FOR CHRONIC PAIN ) NOT-TAKING CYCLOBENZAPRINE HCL 10 MG TABLET 1 TAB ORALLY BID FOR SEVERE MUSCLE SPASM NOT-TAKING TRIAMCINOLONE ACETONIDE 0.1 % CREAM 1 APPLICATION EXTERNALLY TWO TIMES A WEEK NOT-TAKING PROCTOZONE-HC 2.5 % CREAM 1 APPLICATION TO AFFECTED AREA RECTAL TWICE A DAY NEEDED NOT-TAKING OXYCODONE HCL 10 MG TABLET 1 TABLET NEEDED ORALLY Q12H PRN MDD2 NOT-TAKING EMGALITY 120 MG/ML SOLUTION AUTO-INJECTOR DIRECTED SUBCUTANEOUS NOT-TAKING ZOLMITRIPTAN 5 MG TABLET 1 TABLET ORALLY ONCE A DAY NEEDED NOT-TAKING LYRICA 200 MG CAPSULE 1 CAPSULE 1 TO 3 HOURS BEFORE BEDTIME ORALLY THREE TIMES DAILY NOT-TAKING OXYBUTYNIN CHLORIDE ER 5 MG TABLET EXTENDED RELEASE 24 HOUR TAKE 1 TABLET BY MOUTH EVERY DAY ORALLY ONCE A DAY NOT-TAKING VERAPAMIL HCL ER 180 MG TABLET EXTENDED RELEASE 1 TABLET ORALLY TWICE A DAY NOT-TAKING PANTOPRAZOLE SODIUM 40 MG TABLET DELAYED RELEASE TAKE 1 TABLET BY MOUTH TWICE A DAY NOT-TAKING SPIRONOLACTONE 50 MG TABLET 1 TABLET ORALLY ONCE A DAY MEDICATION LIST REVIEWED AND RECONCILED WITH THE PATIENT PAST MEDICAL HISTORY GERD DDD, HERNIATED DISCS, SPINE ARTHRITIS COPD PER PATIENT CHRONIC MIGRAINES HX RIGHT ANKLE FX, LEFT FOOT FX, COCCYX FX R KNEE SCAR TISSUE OBESITY PCOS, HIRSUTISM HYPERLIPIDEMIA RESTLESS LEGS SYNDROME IRON DEFICIENCY ANEMIA CHRONIC FATIGUE IRREGULAR HEAVY MENSES ENDOMETRIOSIS INTERSTITIAL CYSTITIS REPORTED HISTORY OF COLONIC POLYPS ELEVATED 24 HR CORTISOL- SAW DR. GOMEZ, NO ADRENAL INSUFFICIENCY OCCIPITAL NEURALGIA CHRONIC PAIN DUE TO TRAUMA MYALGIA CONSTIPATION TUMOR UTERUS CHRONIC BACK AND NECK PAIN ALLERGIES TYLENOL: FEVER - ALLERGY ZANTAC: NUMBNESS ANDTINGLING IN HANDS AND SWOLLEN LIPS - ALLERGY HYDROCODONE-ACETAMINOPHEN: FEVER ,NAUSEA - ALLERGY PENICILLIN (FOR ALLERGIES USE ONLY): YEAST INFECTION - SIDE EFFECTS VENOFER: JOINT SWELLING - ALLERGY BANDAIDS/ADHESIVES: RASH - ALLERGY SOCIAL HISTORY GENERAL: TOBACCO USE ARE YOU A:NONSMOKER NEVER SMOKER LATEX QUESTIONNAIRE LATEX ALLERGY : HAVE YOU EVER DEVELOPED ANY TYPE OF REACTION AFTER HANDLING LATEX PRODUCTS SUCH RUBBER GLOVES, CONDOMS, DIAPHRAGMS, BALLOONS, SOCKS, OR UNDERWEAR?YES - PLEASE INDICATE :OTHER (DOCUMENT IN NOTES) SOME BANDAIDS LATEX ALLERGY : HAVE YOU EVER DEVELOPED ANY TYPE OF REACTION DURING OR AFTER DENTAL APPOINTMENT, VAGINAL/RECTAL EXAMINATION, SURGICAL PROCEDURE, OR ANY OTHER EXPOSURE?NO LATEX RISK : HAVE YOU EVER HAD ANY DIFFICULTY BREATHING OR HIVES AFTER EATING OR HANDLING ANY FRUITS, OR VEGETABLES; SUCH KIWI, BANANAS, STONE FRUITS, OR CHESTNUTSNO LATEX RISK : DO YOU HAVE A PREVIOUS PERSONAL HISTORY OF MORE THAN NINE SURGERIES, SPINA BIFIDA, OR REPEATED CATHERIZATIONS? NO LATEX RISK : ARE YOU FREQUENTLY EXPOSED TO LATEX PRODUCTS IN YOUR OCCUPATION?NO DATE ASKED : 03/14/2021 ALCOHOL USE: NO. ALCOHOL SCREENING DID YOU HAVE A DRINK CONTAINING ALCOHOL IN THE PAST YEAR?NO POINTS0 INTERPRETATIONNEGATIVE RECREATIONAL DRUG USE DRUG USE?NO CAFFEINE CAFFEINE USE?NO SEXUAL HX HAD SEX IN THE LAST 12 MONTHS (VAGINAL, ORAL, OR ANAL)?NO HAVE YOU EVER HAD AN STD?NO HIV / HEP-C SCREENING HIV TEST OFFERED TO PATIENT:YES DATE OFFERED:08/01/2017 TEST ACCEPTED:NO REASON:PATIENT DECLINED BROCHURE PROVIDED TO PATIENTYES HEP-C TEST OFFERED TO PATIENT:NO GNOSTICISM [id number] NONE OTHER LANGUAGE LANGUAGES SPOKEN:OCCITAN EDUCATION LEVEL OF EDUCATION:COLLEGE LEARNING BARRIERS / SPECIAL NEEDS CHANGE FROM LAST VISIT?NO BARRIERS TO LEARNING?NO HEARING IMPAIRED?NO VISION IMPAIRED?NO COGNITIVELY IMPAIRED?NO READINESS TO LEARN?YES LEARNING PREFERENCES?YES :DEMONSTRATION/VERBAL INSTRUCTION LEARNING CAPABILITIES PRESENT?YES EMOTIONAL BARRIERS?NO SPECIAL DEVICES?NO ADMISSIONS COUNSELOR NEEDED?NO DOMESTIC VIOLENCE DO YOU FEEL SAFE IN YOUR ENVIRONMENT?YES OCCUPATION: UNEMPLOYED. DIET: NO MSG ,GLUTEN FREE. EXERCISE: NONE. MARITAL STATUS: SINGLE. OTHERS AT HOME: S[place]LING, IN-LAW(S). - WAS THE PROVIDER NOTIFIED OF ANY PERTINENT INFO?YES HAS THE PATIENT BEEN EDUCATED REGARDING HIS/HER PLAN OF CARE?YES HAS THE PATIENT BEEN EDUCATED REGARDING PAIN, THE RISK FOR PAIN, THE IMPORTANCE OF EFFECTIVE PAIN MANAGEMENT, AND THE PAIN ASSESSMENT PROCESS?YES ADVANCE DIRECTIVE ADVANCE DIRECTIVE DISCUSSED WITH PATIENT:YES HAS HCP- MALGORZATA VELASCO [phone] REVIEW OF SYSTEMS CONSTITUTIONAL: ANY RECENT FEVER NO . CHILLS NO . WEIGHT CHANGE OF UNKNOWN REASONS NO . GASTROENTEROLOGY: NEW UNEXPLAINABLE CHANGES IN BOWEL CONTROL NO . CONSTIPATION NO . GENITOURINARY: ANY NEW CHANGE IN BLADDER CONTROL? NO . NEUROLOGY: NEW ONSET DIZZINESS OR NEUROLOGICAL CHANGES NOT MENTIONED NO . NEW NUMBNESS OR PAIN PATTERNS NOT MENTIONED AND PERTINENT TO TODAY'S VISIT NO . CARDIOLOGY: NEW CHEST PRESSURE NO . PATIENT DENIES NO . RESPIRATORY: UNEXPLAINABLE COUGH NO . NEW SHORTNESS OF BREATH NO . VITAL SIGNS WT 210.2 LBS, WT-KG 95.35 KG, HT 60 IN, BMI 41.05 INDEX, BP 120/76 MM HG, HR 103 /MIN, RR 18 /MIN, TEMP 98.0 F, OXYGEN SAT % 95%, SAFE IN ENV? (Y/N) Y, NA INITIALS AW 1028, REVIEWED BY: EM. EXAMINATION GENERAL EXAMINATION: THE PATIENT IS ALERT, ORIENTED TIMES THREE AND COOPERATIVE. THERE IS TENDERNESS AT THE RIGHT AND LEFT PARASPINAL MUSCLE GROUP OVER THE FACET JOINT. THE MRI OF THE LUMBAR SPINE DONE ON 09/18/2018 SHOWING SOME FACET ARTHROPATHY CHANGES. 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 SHEARER. WE ARE GOING TO REQUEST AUTHORIZATION FOR A SECOND DIAGNOSTIC TEST BILATERAL L5-S1 DIAGNOSTIC NUMBER 2, AND DEPENDING ON THE RESULT FURTHER RECOMMENDATIONS WILL BE DONE. PATIENT VERBALIZED UNDERSTANDING AND AGREES WITH THE PLAN. I, CESARIO VELASCO RN DOCUMENTED THE ABOVE INFORMATION ACTING A SCRIBE FOR DR NINO. I HAVE REVIEWED THE ABOVE DOCUMENT, WRITTEN BY CESARIO VELASCO RN, AND I VERIFY THAT IT IS ACCURATE. OTHERS CLINICAL NOTES: PREPROCEDURE EDUCATION REVIEWED WITH PT INCLUDING TH NEED TO HAVE PAIN WHEN COMING FOR THE PROCEDURE THIS IS A DIAGNOSIS PROCEDURE. VISIT CODES PROCEDURE CODES FA211 ESTABILISHED PATIENT [facility] FACILITY CHARGE [id number] OFFICE/OUTPATIENT VISIT EST DISPOSITION & COMMUNICATION FOLLOW UP REQUEST AUTHORIZATION FOR BILATERAL DIAGNOSTIC LUMBAR FACET BLOCK L5-S1 #2 AND BOOK AFTER AUTH (REASON: POST PROCEDURE- BILATERAL DIAGNOSTIC LUMBAR FACET BLOCK L5-S1 #2) ELECTRONICALLY SIGNED BY DAVID NINO MD, MD ON 03/20/2021 AT 07:32 PM EDT DISCLAIMER : THIS IS A VISIT SUMMARY EXTRACTED FROM THE [employer] CHART. IT IS NOT A COPY OF THE [employer] PROGRESS NOTE. JOHNNIE
== END ==
LOC: M PAIN 10:30
PROVIDERS: ATTEND Anesthesiology
DX: M43.07 Spondylolysis, lumbosacral region (principal); M47.816 Spondylosis without myelopathy or radiculopathy, lumbar region; G89.29 Other chronic pain; G47.30 Sleep apnea, unspecified; K21.9 Gastro-esophageal reflux disease without esophagitis; G43.909 Migraine, unspecified, not intractable, without status migrainosus; G25.81 Restless legs syndrome; D50.9 Iron deficiency anemia, unspecified; Z88.0 Allergy status to penicillin; Z88.5 Allergy status to narcotic agent; Z88.6 Allergy status to analgesic agent; Z88.8 Allergy status to other drugs, medicaments and biological substances; Z91.09 Other allergy status, other than to drugs and biological substances; E66.01 Morbid (severe) obesity due to excess calories; Z68.41 Body mass index [BMI] 40.0-44.9, adult; Z79.891 Long term (current) use of opiate analgesic; Z79.899 Other long term (current) drug therapy

== ENCOUNTER → 2021-04-07 | Outpatient (CLI) | payer MEDICARE, MEDICAID ==
[~2021-04-07] MED LIST changes: -VERA180T3 PO; +VERA180T50 PO
== END ==
LOC: M LABSMTC 11:52
PROVIDERS: ATTEND Anesthesiology
DX: Z20.822 Contact with and (suspected) exposure to COVID-19 (principal)

== ENCOUNTER → 2021-04-12 | Outpatient (CLI) | payer MEDICARE ==
[~2021-04-12] MED LIST changes: +BUPIVACAINE HCL 0.25% 30ML VIAL As Ordered ONE; +ISOVUE-M 300 61% 15ML VIAL As Ordered ONE; +LIDOCAINE 1% SDV 30ML VIAL As Ordered ONE
--- NOTE | 2021-04-12 11:32 | REP ---
INDICATION: BILATERAL DIAGNOSTIC LUMBAR FACET BLOCK L5-S1 #2. COMPARISON: None. TECHNIQUE: 2 views. 31.1 seconds of fluoroscopy time is reported. FINDINGS: A sequence of 2 last image hold fluoroscopically obtained spot radiograph(s) of the lumbar spine document(s) needle position(s) and contrast injection associated with injection procedure. IMPRESSION: Procedural imaging. <Electronically signed by Phu Subramanian > 04/12/21 1122
== END ==
LOC: M PAIN 08:30
PROVIDERS: ATTEND Anesthesiology
DX: M47.817 Spondylosis without myelopathy or radiculopathy, lumbosacral region (principal); K21.9 Gastro-esophageal reflux disease without esophagitis; G43.909 Migraine, unspecified, not intractable, without status migrainosus; G25.81 Restless legs syndrome; D50.9 Iron deficiency anemia, unspecified; M79.10 Myalgia, unspecified site; Z88.0 Allergy status to penicillin; Z88.5 Allergy status to narcotic agent; Z88.6 Allergy status to analgesic agent; Z88.8 Allergy status to other drugs, medicaments and biological substances; Z91.09 Other allergy status, other than to drugs and biological substances; E66.01 Morbid (severe) obesity due to excess calories; Z68.41 Body mass index [BMI] 40.0-44.9, adult; Z79.891 Long term (current) use of opiate analgesic; Z79.899 Other long term (current) drug therapy
CPT/HCPCS: 64493; Q9967

== ENCOUNTER → 2021-04-20 | Outpatient (CLI) | payer MEDICARE ==
[~2021-04-20] MED LIST changes: -BUPIVACAINE HCL 0.25% 30ML VIAL As Ordered ONE; -ISOVUE-M 300 61% 15ML VIAL As Ordered ONE; -LIDOCAINE 1% SDV 30ML VIAL As Ordered ONE
--- NOTE | 2021-04-20 12:20 | REP ---
INDICATION: RT WRIST S/P FALL. COMPARISON: None. TECHNIQUE: Two views FINDINGS: Two views of the wrist cannot rule out a fracture. Trauma series consists of four views. There is a possible cortical irregularity of the radial styloid. IMPRESSION: Cannot rule out distal radial fracture. Four view trauma series recommended. <Electronically signed by Mike Ortiz > 04/20/21 4721
== END ==
LOC: M RAD 11:20
PROVIDERS: ATTEND Internal Medicine
DX: M25.531 Pain in right wrist (principal); Z91.81 History of falling

== ENCOUNTER → 2021-04-20 | Outpatient (CLI) | payer MEDICARE | LOC: M PAIN 08:45 | PROVIDERS: ATTEND Anesthesiology | DX: M47.817 Spondylosis without myelopathy or radiculopathy, lumbosacral region (principal); G89.29 Other chronic pain; K21.9 Gastro-esophageal reflux disease without esophagitis; G43.909 Migraine, unspecified, not intractable, without status migrainosus; G25.81 Restless legs syndrome; D50.9 Iron deficiency anemia, unspecified; M79.10 Myalgia, unspecified site; Z88.0 Allergy status to penicillin; Z88.5 Allergy status to narcotic agent; Z88.6 Allergy status to analgesic agent; Z88.8 Allergy status to other drugs, medicaments and biological substances; Z91.09 Other allergy status, other than to drugs and biological substances; E66.01 Morbid (severe) obesity due to excess calories; Z68.41 Body mass index [BMI] 40.0-44.9, adult; Z79.891 Long term (current) use of opiate analgesic; Z79.899 Other long term (current) drug therapy ==

== ENCOUNTER → 2021-04-20 | Outpatient (CLI) | payer MEDICARE ==
--- NOTE | 2021-04-20 12:16 | REP ---
INDICATION: PAIN IN LT UPPER ARM S/P FALL COMPARISON: None. TECHNIQUE: AP and lateral views of the left humerus FINDINGS: The osseous structures and joint spaces are intact and normal. There is no evidence for acute fracture or dislocation. Surrounding soft tissues are unremarkable. No subcutaneous emphysema or radiodense foreign body. IMPRESSION: . No acute fracture or dislocation. <Electronically signed by Jose Yin > 04/20/21 4260
== END ==
LOC: M RAD 11:23
PROVIDERS: ATTEND Physician Assistant
DX: M79.622 Pain in left upper arm (principal)
CPT/HCPCS: 73060; 73100; G0463

== ENCOUNTER → 2021-04-26 | Outpatient (CLI) | payer MEDICARE ==
--- NOTE | 2021-04-27 15:57 | REPVR ---
PROCEDURE INFORMATION: Exam: MR Lumbar Spine Without Contrast Exam date and time: 04/26/2021 11:20 AM Age: 46 years old Clinical indication: Low back pain; Additional info: Spondylosis TECHNIQUE: Imaging protocol: Multiplanar magnetic resonance images of the lumbar spine without intravenous contrast. COMPARISON: MRI-Spine, L.S. without con 09/18/2018 1:14 PM FINDINGS: Vertebrae: 3 mm of grade 1 degenerative anterolisthesis of L4 on L5. 6 mm of degenerative retrolisthesis of L5 on S1. No acute fracture seen. Spinal cord: The conus medullaris ends normally. There is disc desiccation throughout. Disc height loss and spondylosis is marked at L5-S1, mild at L4-L5. Relatively minimal endplate degenerative changes elsewhere. Small Schmorl's nodes of the L2 and L3 superior endplates. L1-L2: No significant interval change. 4 mm central disc protrusion with high-intensity zone does not contribute to central spinal canal stenosis or nerve root impingement. There is a thin component of cranially migrating disc extrusion without mass effect. The neural foramina are patent. L2-L3: No significant interval change. No significant disc disease. No significant spinal canal stenosis. No neural foraminal stenosis. L3-L4: No significant interval change. The 3-4 mm right foraminal disc protrusion causes mild right neural foraminal narrowing approximating but not definitively abutting or displacing the exiting right L3 nerve root. L4-L5: Anterolisthesis. Mild diffuse disc bulge. Marked right and moderate left facet arthropathy with right greater than left ligamentum flavum buckling. 4 mm right paracentral disc extrusion with high-intensity zone abuts the right L5 nerve root in the lateral recess (previously a disc protrusion measured approximately 2 mm). Central spinal canal stenosis is mild. Mild right neural foraminal stenosis. No significant left neural foraminal narrowing. L5-S1: No significant interval change. Retrolisthesis. Marked diffuse disc osteophyte complex. A component of central soft disc protrusion measures 3-4 mm in AP dimension. No significant central spinal canal stenosis or evidence of S1 nerve root impingement. Moderate right and [id number] left neural foraminal stenoses, the exiting L5 nerve roots contact far lateral disc osteophyte. Soft tissues: Nonspecific edema in the back subcutaneous fat, potentially dependent/positional. IMPRESSION: 1. Advanced facet arthropathy at L4-L5 resulting in new grade 1 degenerative anterolisthesis. 2. There is degenerative retrolisthesis of L5 on S1, as before. 3. Advanced degenerative disc disease at L5-S1, similar to prior. 4. A new/larger disc extrusion at L4-L5 may be cause of right L5 distribution radiculopathy. 5. Neural foraminal stenoses at L5-S1 may be cause of L5 distribution radiculopathy, stable. Electronically signed by: Erna Kurtz On 04/27/2021 15:56:36 PM
== END ==
LOC: M RAD 10:00
PROVIDERS: ATTEND Anesthesiology
DX: M47.817 Spondylosis without myelopathy or radiculopathy, lumbosacral region (principal)

== ENCOUNTER → 2021-04-26 | Outpatient (CLI) | payer MEDICARE | LOC: M PAIN 15:30 | PROVIDERS: ATTEND Anesthesiology | DX: M79.10 Myalgia, unspecified site (principal); M54.50 Low back pain, unspecified; K21.9 Gastro-esophageal reflux disease without esophagitis; G43.909 Migraine, unspecified, not intractable, without status migrainosus; G25.81 Restless legs syndrome; Z88.0 Allergy status to penicillin; Z88.5 Allergy status to narcotic agent; Z88.6 Allergy status to analgesic agent; Z88.8 Allergy status to other drugs, medicaments and biological substances; Z91.09 Other allergy status, other than to drugs and biological substances; Z79.891 Long term (current) use of opiate analgesic; Z79.899 Other long term (current) drug therapy ==

== ENCOUNTER → 2021-04-29 | Outpatient (CLI) | payer MEDICARE ==
--- NOTE | 2021-04-29 11:29 | REP ---
INDICATION: DETERMINE PROCEDURE. COMPARISON: None. TECHNIQUE: 0 images. 4.7 seconds of fluoroscopy time is reported. FINDINGS: Procedural imaging IMPRESSION: Procedural imaging. <Electronically signed by Phu Subramanian > 04/29/21 112
== END ==
LOC: M PAIN 08:30
PROVIDERS: ATTEND Anesthesiology
DX: M46.1 Sacroiliitis, not elsewhere classified (principal); M53.3 Sacrococcygeal disorders, not elsewhere classified; K21.9 Gastro-esophageal reflux disease without esophagitis; G43.909 Migraine, unspecified, not intractable, without status migrainosus; G25.81 Restless legs syndrome; D50.9 Iron deficiency anemia, unspecified; M79.10 Myalgia, unspecified site; Z88.0 Allergy status to penicillin; Z88.5 Allergy status to narcotic agent; Z88.6 Allergy status to analgesic agent; Z88.8 Allergy status to other drugs, medicaments and biological substances; Z91.09 Other allergy status, other than to drugs and biological substances; E66.01 Morbid (severe) obesity due to excess calories; Z68.41 Body mass index [BMI] 40.0-44.9, adult; Z79.891 Long term (current) use of opiate analgesic; Z79.899 Other long term (current) drug therapy

== ENCOUNTER → 2021-05-23 | Outpatient (CLI) | payer MEDICARE ==
[~2021-05-23] MED LIST changes: +VERA180T42 PO; -VERA180T50 PO
[2021-05-23 18:45] LABS: BASO % 0.6 % (0.0-1.0); EOS # 0.1 10^3/uL (0.0-0.5); HEMATOCRIT 39.9 % (36.0-47.0); HEMOGLOBIN 12.5 g/dl (12.0-15.5); LYMPH # 2.2 10^3/uL (1.5-5.0); LYMPH % 33.6 % (24.0-44.0); MEAN CORPUSCULAR HEMOGLOBIN 29.2 pg (27.0-33.0); MEAN CORPUSCULAR HGB CONC 31.3 g/dl (32.0-36.5); MEAN CORPUSCULAR VOLUME 93.2 fl (80.0-96.0); MONO # 0.5 10^3/uL (0.0-0.8); MONO % 7.5 % (2.0-8.0); NEUTROPHILS # 3.6 10^3/uL (1.5-8.5); PLATELET COUNT, AUTOMATED 270 10^3/uL (150-450); RED BLOOD COUNT 4.28 10^6/uL (4.00-5.40); WHITE BLOOD COUNT 6.4 10^3/uL (4.0-10.0)
[2021-05-23 19:08] LABS: C REACTIVE PROTEIN QUANTITATIV 0.62 MG/DL (0.00-0.30); RHEUMATOID FACTOR QUANT < 10.0 IU/ML (<15.0); URIC ACID 4.2 MG/DL (2.6-6.0)
[2021-05-23 19:27] LABS: ERYTHROCYTE SEDIMENTATION RATE 21 mm/hr (0-20)
[2021-05-25 23:07] LABS: ANA (HEP2) Negative (.); Lyme Disease IgG/IgM Antibodie <0.91 ISR (0.00-0.90); Lyme Disease IgM Ab Quantitati <0.80 index (0.00-0.79)
== END ==
LOC: M PLALAB 14:50
PROVIDERS: ATTEND Physician Assistant Surgical
DX: M17.0 Bilateral primary osteoarthritis of knee (principal); Z79.899 Other long term (current) drug therapy

== ENCOUNTER → 2021-05-25 | Outpatient (CLI) | payer MEDICARE | LOC: M LABSMTC 09:12 | PROVIDERS: ATTEND Anesthesiology | DX: Z01.818 Encounter for other preprocedural examination (principal); Z11.52 Encounter for screening for COVID-19 ==

== ENCOUNTER → 2021-05-30 | Outpatient (CLI) | payer MEDICARE ==
[~2021-05-30] MED LIST changes: +BUPIVACAINE HCL 0.25% 30ML VIAL As Ordered ONE; +ISOVUE-M 300 61% 15ML VIAL As Ordered ONE; +LIDOCAINE 1% SDV 30ML VIAL As Ordered ONE; +TRIAMCINOLONE ACETONIDE SUSP 40 MG/ML VIAL (J3301) As Ordered ONE; +diazePAM 5MG TABLET As Ordered ONE; +oxyCODONE 5MG TAB As Ordered ONE
--- NOTE | 2021-05-31 14:29 | REP ---
INDICATION: BILATERAL SACROILIAC JOINT BLOCK. COMPARISON: None. TECHNIQUE: Multiple C-arm views of the sacroiliac joints performed. FINDINGS: A needle overlies each sacroiliac joint. IMPRESSION: 48 seconds fluoroscopy time utilized. <Electronically signed by Lon Cruz > 05/31/21 1774
== END ==
LOC: M PAIN 14:20
PROVIDERS: ATTEND Anesthesiology
DX: M46.1 Sacroiliitis, not elsewhere classified (principal); K21.9 Gastro-esophageal reflux disease without esophagitis; G43.909 Migraine, unspecified, not intractable, without status migrainosus; G25.81 Restless legs syndrome; D50.9 Iron deficiency anemia, unspecified; Z88.0 Allergy status to penicillin; Z88.5 Allergy status to narcotic agent; Z88.6 Allergy status to analgesic agent; Z88.8 Allergy status to other drugs, medicaments and biological substances; Z91.09 Other allergy status, other than to drugs and biological substances; E66.01 Morbid (severe) obesity due to excess calories; Z68.41 Body mass index [BMI] 40.0-44.9, adult; Z79.891 Long term (current) use of opiate analgesic; Z79.899 Other long term (current) drug therapy
CPT/HCPCS: G0260; J3301; Q9967

== ENCOUNTER → 2021-06-23 | Outpatient (CLI) | payer MEDICARE ==
[~2021-06-23] MED LIST changes: -BUPIVACAINE HCL 0.25% 30ML VIAL As Ordered ONE; -ISOVUE-M 300 61% 15ML VIAL As Ordered ONE; -LIDOCAINE 1% SDV 30ML VIAL As Ordered ONE; -TRIAMCINOLONE ACETONIDE SUSP 40 MG/ML VIAL (J3301) As Ordered ONE; -diazePAM 5MG TABLET As Ordered ONE; -oxyCODONE 5MG TAB As Ordered ONE
== END ==
LOC: M PAIN 11:45
PROVIDERS: ATTEND Anesthesiology
DX: M53.3 Sacrococcygeal disorders, not elsewhere classified (principal); G89.29 Other chronic pain; K21.9 Gastro-esophageal reflux disease without esophagitis; G43.909 Migraine, unspecified, not intractable, without status migrainosus; G25.81 Restless legs syndrome; D50.9 Iron deficiency anemia, unspecified; M79.10 Myalgia, unspecified site; Z88.0 Allergy status to penicillin; Z88.5 Allergy status to narcotic agent; Z88.6 Allergy status to analgesic agent; Z88.8 Allergy status to other drugs, medicaments and biological substances; Z91.09 Other allergy status, other than to drugs and biological substances; E66.01 Morbid (severe) obesity due to excess calories; Z68.41 Body mass index [BMI] 40.0-44.9, adult; Z79.891 Long term (current) use of opiate analgesic; Z79.899 Other long term (current) drug therapy

== ENCOUNTER → 2021-08-02 | Outpatient (CLI) | payer MEDICARE, MEDICAID | LOC: M PAIN 14:30 | PROVIDERS: ATTEND Anesthesiology | DX: M53.3 Sacrococcygeal disorders, not elsewhere classified (principal); G89.29 Other chronic pain; K21.9 Gastro-esophageal reflux disease without esophagitis; G43.909 Migraine, unspecified, not intractable, without status migrainosus; G25.81 Restless legs syndrome; D50.9 Iron deficiency anemia, unspecified; Z88.0 Allergy status to penicillin; Z88.5 Allergy status to narcotic agent; Z88.6 Allergy status to analgesic agent; Z88.8 Allergy status to other drugs, medicaments and biological substances; Z91.09 Other allergy status, other than to drugs and biological substances; E66.01 Morbid (severe) obesity due to excess calories; Z68.41 Body mass index [BMI] 40.0-44.9, adult; Z79.891 Long term (current) use of opiate analgesic; Z79.899 Other long term (current) drug therapy | CPT/HCPCS: 36415; 85652; 86140; G0463 ==

== ENCOUNTER → 2021-09-21 | Outpatient (CLI) | payer MEDICARE, MEDICAID ==
[~2021-09-21] MED LIST changes: -D31000TA2 PO; +VITA100093 PO
== END ==
LOC: M PAIN 11:00
PROVIDERS: ATTEND Anesthesiology
DX: M79.18 Myalgia, other site (principal); M46.1 Sacroiliitis, not elsewhere classified; K21.9 Gastro-esophageal reflux disease without esophagitis; G43.909 Migraine, unspecified, not intractable, without status migrainosus; G25.81 Restless legs syndrome; D50.9 Iron deficiency anemia, unspecified; Z88.0 Allergy status to penicillin; Z88.5 Allergy status to narcotic agent; Z88.6 Allergy status to analgesic agent; Z88.8 Allergy status to other drugs, medicaments and biological substances; Z91.09 Other allergy status, other than to drugs and biological substances; E66.01 Morbid (severe) obesity due to excess calories; Z68.41 Body mass index [BMI] 40.0-44.9, adult; Z79.891 Long term (current) use of opiate analgesic; Z79.899 Other long term (current) drug therapy

== ENCOUNTER → 2021-09-22 | Outpatient (CLI) | payer MEDICARE, MEDICAID ==
[2021-09-22 17:15] LABS: ALBUMIN 3.3 GM/DL (3.2-5.2); ALT/SGPT 28 U/L (12-78); BILIRUBIN,TOTAL 0.7 MG/DL (0.2-1.0); BLOOD UREA NITROGEN 12 MG/DL (7-18); CALCIUM LEVEL 8.7 MG/DL (8.5-10.1); CARBON DIOXIDE LEVEL 28 MEQ/L (21-32); CHLORIDE LEVEL 109 MEQ/L (98-107); CREATININE FOR GFR 0.78 MG/DL (0.55-1.30); FREE T4 0.94 NG/DL (0.76-1.46); GLOMERULAR FILTRATION RATE > 60.0 (>58); GLUCOSE, FASTING 134 MG/DL (70-100); SODIUM LEVEL 141 MEQ/L (136-145); TOTAL PROTEIN 6.6 GM/DL (6.4-8.2)
[2021-09-22 17:30] LABS: HEMATOCRIT 43.3 % (36.0-47.0); HEMOGLOBIN 13.8 g/dl (12.0-15.5); MEAN CORPUSCULAR HEMOGLOBIN 29.7 pg (27.0-33.0); MEAN CORPUSCULAR HGB CONC 31.9 g/dl (32.0-36.5); MEAN CORPUSCULAR VOLUME 93.1 fl (80.0-96.0); PLATELET COUNT, AUTOMATED 246 10^3/uL (150-450); RED BLOOD COUNT 4.65 10^6/uL (4.00-5.40); WHITE BLOOD COUNT 9.8 10^3/uL (4.0-10.0)
== END ==
LOC: M LAB 15:18
PROVIDERS: ATTEND Nurse Practitioner Family
DX: B35.1 Tinea unguium (principal); Z79.899 Other long term (current) drug therapy

== ENCOUNTER → 2021-09-28 | Outpatient (CLI) | payer MEDICARE, MEDICAID | LOC: M WHC 13:27 | PROVIDERS: ATTEND Obstetrics & Gynecology | DX: Z12.31 Encounter for screening mammogram for malignant neoplasm of breast (principal) ==

== ENCOUNTER → 2021-11-04 | Outpatient (CLI) | payer MEDICARE, MEDICAID | LOC: M RAD 14:51 | PROVIDERS: ATTEND Anesthesiology | DX: M46.1 Sacroiliitis, not elsewhere classified (principal); M43.06 Spondylolysis, lumbar region; M43.07 Spondylolysis, lumbosacral region ==

== ENCOUNTER → 2021-11-07 | Outpatient (CLI) | payer MEDICARE, MEDICAID ==
[~2021-11-07] MED LIST changes: +BUPIVACAINE HCL 0.25% 30ML VIAL As Ordered ONE; +ISOVUE-M 300 61% 15ML VIAL As Ordered ONE; +LIDOCAINE 1% SDV 30ML VIAL As Ordered ONE; +TRIAMCINOLONE ACETONIDE SUSP 40 MG/ML VIAL (J3301) As Ordered ONE; +diazePAM 5MG TABLET As Ordered ONE; +oxyCODONE 5MG TAB As Ordered ONE
== END ==
LOC: M PAIN 08:30
PROVIDERS: ATTEND Anesthesiology
DX: M46.1 Sacroiliitis, not elsewhere classified (principal); K21.9 Gastro-esophageal reflux disease without esophagitis; G43.909 Migraine, unspecified, not intractable, without status migrainosus; G25.81 Restless legs syndrome; D50.9 Iron deficiency anemia, unspecified; M79.10 Myalgia, unspecified site; Z88.0 Allergy status to penicillin; Z88.5 Allergy status to narcotic agent; Z88.6 Allergy status to analgesic agent; Z88.8 Allergy status to other drugs, medicaments and biological substances; Z91.09 Other allergy status, other than to drugs and biological substances; E66.01 Morbid (severe) obesity due to excess calories; Z68.41 Body mass index [BMI] 40.0-44.9, adult; Z79.891 Long term (current) use of opiate analgesic; Z79.899 Other long term (current) drug therapy
CPT/HCPCS: G0260; J3301; Q9967

== ENCOUNTER → 2021-11-18 | Outpatient (CLI) | payer MEDICARE ==
[~2021-11-18] MED LIST changes: -BUPIVACAINE HCL 0.25% 30ML VIAL As Ordered ONE; +ISOVUE-300 61% 50ML VIAL As Ordered ONE; -ISOVUE-M 300 61% 15ML VIAL As Ordered ONE; +LIDOCAINE 1% MDV 20ML VIAL As Ordered ONE; -LIDOCAINE 1% SDV 30ML VIAL As Ordered ONE; -TRIAMCINOLONE ACETONIDE SUSP 40 MG/ML VIAL (J3301) As Ordered ONE; -diazePAM 5MG TABLET As Ordered ONE; +methylPREDNISolone SUSP 40MG/ML 1ML VIAL (DEPO MEDROL) As Ordered ONE; -oxyCODONE 5MG TAB As Ordered ONE
== END ==
LOC: M RADPRO 12:49
PROVIDERS: ATTEND Physician Assistant Surgical
DX: S43.432D Superior glenoid labrum lesion of left shoulder, subsequent encounter (principal)
CPT/HCPCS: 20610; 77002; J1030; Q9967

== ENCOUNTER → 2022-01-20 | Outpatient (CLI) | payer MEDICARE, MEDICAID ==
[~2022-01-20] MED LIST changes: -ISOVUE-300 61% 50ML VIAL As Ordered ONE; -LIDOCAINE 1% MDV 20ML VIAL As Ordered ONE; -methylPREDNISolone SUSP 40MG/ML 1ML VIAL (DEPO MEDROL) As Ordered ONE
== END ==
LOC: M PAIN 15:30
PROVIDERS: ATTEND Anesthesiology
DX: Z53.29 Procedure and treatment not carried out because of patient's decision for other reasons (principal)

== ENCOUNTER → 2022-02-07 | Outpatient (CLI) | payer MEDICARE, MEDICAID | LOC: M LABSMTC 11:25 | PROVIDERS: ATTEND Anesthesiology | DX: Z11.52 Encounter for screening for COVID-19 (principal) ==

== ENCOUNTER → 2022-02-09 | Outpatient (CLI) | payer MEDICARE, MEDICAID ==
[~2022-02-09] MED LIST changes: +BUPIVACAINE HCL 0.25% 10ML VIAL As Ordered ONE; +BUPIVACAINE HCL 0.25% 30ML VIAL As Ordered ONE; +TRIAMCINOLONE ACETONIDE SUSP 40 MG/ML VIAL (J3301) As Ordered ONE; +diazePAM 5MG TABLET As Ordered ONE; +oxyCODONE 5MG TAB As Ordered ONE
== END ==
LOC: M PAIN 10:00
PROVIDERS: ATTEND Anesthesiology
DX: M79.18 Myalgia, other site (principal); G89.29 Other chronic pain; K21.9 Gastro-esophageal reflux disease without esophagitis; G43.909 Migraine, unspecified, not intractable, without status migrainosus; G25.81 Restless legs syndrome; D50.9 Iron deficiency anemia, unspecified; Z88.0 Allergy status to penicillin; Z88.5 Allergy status to narcotic agent; Z88.6 Allergy status to analgesic agent; Z88.8 Allergy status to other drugs, medicaments and biological substances; Z91.09 Other allergy status, other than to drugs and biological substances; E66.01 Morbid (severe) obesity due to excess calories; Z68.41 Body mass index [BMI] 40.0-44.9, adult; Z79.899 Other long term (current) drug therapy
CPT/HCPCS: 20552; J3301

== ENCOUNTER → 2022-04-12 | Outpatient (CLI) | payer MEDICARE, MEDICAID ==
[~2022-04-12] MED LIST changes: -BUPIVACAINE HCL 0.25% 10ML VIAL As Ordered ONE; -BUPIVACAINE HCL 0.25% 30ML VIAL As Ordered ONE; -TRIAMCINOLONE ACETONIDE SUSP 40 MG/ML VIAL (J3301) As Ordered ONE; -diazePAM 5MG TABLET As Ordered ONE; -oxyCODONE 5MG TAB As Ordered ONE
== END ==
LOC: M PAIN 11:45
PROVIDERS: ATTEND Anesthesiology
DX: M46.1 Sacroiliitis, not elsewhere classified (principal); M53.3 Sacrococcygeal disorders, not elsewhere classified; G89.29 Other chronic pain; K21.9 Gastro-esophageal reflux disease without esophagitis; G43.909 Migraine, unspecified, not intractable, without status migrainosus; E28.2 Polycystic ovarian syndrome; G25.81 Restless legs syndrome; D50.9 Iron deficiency anemia, unspecified; M79.10 Myalgia, unspecified site; Z88.0 Allergy status to penicillin; Z88.5 Allergy status to narcotic agent; Z88.6 Allergy status to analgesic agent; Z88.8 Allergy status to other drugs, medicaments and biological substances; Z91.09 Other allergy status, other than to drugs and biological substances; E66.01 Morbid (severe) obesity due to excess calories; Z68.41 Body mass index [BMI] 40.0-44.9, adult; Z79.899 Other long term (current) drug therapy

== ENCOUNTER → 2022-07-06 | Outpatient (CLI) | payer MEDICARE, MEDICAID | LOC: M LABSMTC 10:55 | PROVIDERS: ATTEND Anesthesiology | DX: Z01.812 Encounter for preprocedural laboratory examination (principal); Z11.52 Encounter for screening for COVID-19 ==

== ENCOUNTER → 2022-07-11 | Outpatient (CLI) | payer MEDICARE, MEDICAID ==
[~2022-07-11] MED LIST changes: +BUPIVACAINE HCL 0.25% 30ML VIAL As Ordered ONE; +ISOVUE-M 300 61% 15ML VIAL As Ordered ONE; +LIDOCAINE 1% SDV 30ML VIAL As Ordered ONE; +TRIAMCINOLONE ACETONIDE SUSP 40MG/ML 1ML VIAL As Ordered ONE; +diazePAM 5MG TABLET As Ordered ONE; +oxyCODONE 5MG TAB As Ordered ONE
== END ==
LOC: M PAIN 08:15
PROVIDERS: ATTEND Anesthesiology
DX: M46.1 Sacroiliitis, not elsewhere classified (principal); M53.3 Sacrococcygeal disorders, not elsewhere classified; G89.29 Other chronic pain; K21.9 Gastro-esophageal reflux disease without esophagitis; G43.909 Migraine, unspecified, not intractable, without status migrainosus; E28.2 Polycystic ovarian syndrome; G25.81 Restless legs syndrome; D50.9 Iron deficiency anemia, unspecified; M79.10 Myalgia, unspecified site; Z88.0 Allergy status to penicillin; Z88.5 Allergy status to narcotic agent; Z88.6 Allergy status to analgesic agent; Z88.8 Allergy status to other drugs, medicaments and biological substances; Z91.09 Other allergy status, other than to drugs and biological substances; E66.01 Morbid (severe) obesity due to excess calories; Z68.41 Body mass index [BMI] 40.0-44.9, adult; Z79.899 Other long term (current) drug therapy
CPT/HCPCS: G0260; J3301; Q9967

== ENCOUNTER → 2022-08-30 | Outpatient (CLI) | payer MEDICARE, MEDICAID ==
[~2022-08-30] MED LIST changes: -BUPIVACAINE HCL 0.25% 30ML VIAL As Ordered ONE; -ISOVUE-M 300 61% 15ML VIAL As Ordered ONE; -LIDOCAINE 1% SDV 30ML VIAL As Ordered ONE; -TRIAMCINOLONE ACETONIDE SUSP 40MG/ML 1ML VIAL As Ordered ONE; -diazePAM 5MG TABLET As Ordered ONE; -oxyCODONE 5MG TAB As Ordered ONE
== END ==
LOC: M PAIN 11:30
PROVIDERS: ATTEND Anesthesiology
DX: M54.2 Cervicalgia (principal); M47.812 Spondylosis without myelopathy or radiculopathy, cervical region; G89.29 Other chronic pain; K21.9 Gastro-esophageal reflux disease without esophagitis; G43.909 Migraine, unspecified, not intractable, without status migrainosus; E28.2 Polycystic ovarian syndrome; G25.81 Restless legs syndrome; D50.9 Iron deficiency anemia, unspecified; Z88.0 Allergy status to penicillin; Z88.5 Allergy status to narcotic agent; Z88.6 Allergy status to analgesic agent; Z88.8 Allergy status to other drugs, medicaments and biological substances; Z91.09 Other allergy status, other than to drugs and biological substances; E66.01 Morbid (severe) obesity due to excess calories; Z68.41 Body mass index [BMI] 40.0-44.9, adult; Z79.899 Other long term (current) drug therapy

== ENCOUNTER → 2022-10-04 | Outpatient (CLI) | payer MEDICARE, MEDICAID ==
[2022-10-04 17:37] LABS: CORTISOL BASELINE 2.3 UG/DL (4.3-22.4)
[2022-10-04 17:40] LABS: THYROID STIMULATING HORMONE 5.388 uIU/ML (0.55-4.78)
[2022-10-04 17:42] LABS: BLOOD UREA NITROGEN 23 MG/DL (9-23); CALCIUM LEVEL 8.6 MG/DL (8.5-10.1); CARBON DIOXIDE LEVEL 24 MMOL/L (20-31); CHLORIDE LEVEL 105 MMOL/L (98-107); CHOLESTEROL LEVEL 154 MG/DL (<200); CHOLESTEROL RISK RATIO 3.42 (<5); CREATININE FOR GFR 0.74 MG/DL (0.55-1.30); FREE T4 1.13 NG/DL (0.89-1.76); GLOMERULAR FILTRATION RATE > 60.0 (>58); GLUCOSE, FASTING 135 MG/DL (60-100); LDL CHOLESTEROL 83.4 MG/DL (<100); POTASSIUM SERUM 4.4 MMOL/L (3.5-5.1); SODIUM LEVEL 138 MMOL/L (136-145); TRIGLYCERIDES LEVEL 128 MG/DL (<150)
[2022-10-04 18:07] LABS: HEMOGLOBIN A1c 7.1 % (4.0-6.0)
== END ==
LOC: M PLALAB 15:14
PROVIDERS: ATTEND Internal Medicine
DX: R94.6 Abnormal results of thyroid function studies (principal); E27.8 Other specified disorders of adrenal gland; E11.9 Type 2 diabetes mellitus without complications

== ENCOUNTER → 2022-10-04 | Outpatient (CLI) | payer MEDICARE, MEDICAID | LOC: M PLAIMG 14:06 | PROVIDERS: ATTEND Anesthesiology | DX: M48.02 Spinal stenosis, cervical region (principal); R94.6 Abnormal results of thyroid function studies; E27.8 Other specified disorders of adrenal gland; E11.9 Type 2 diabetes mellitus without complications ==

== ENCOUNTER → 2022-10-05 | Outpatient (CLI) | payer MEDICARE, MEDICAID | LOC: M WHC 14:18 | PROVIDERS: ATTEND Nurse Practitioner Family | DX: Z12.31 Encounter for screening mammogram for malignant neoplasm of breast (principal); R92.8 Other abnormal and inconclusive findings on diagnostic imaging of breast ==

== ENCOUNTER → 2022-10-05 | Outpatient (REF) | payer MEDICARE, MEDICAID | LOC: M SFHCWAGY 10:06 | PROVIDERS: ATTEND Nurse Practitioner Family | DX: Z12.4 Encounter for screening for malignant neoplasm of cervix (principal) | CPT/HCPCS: 87624; G0123 ==

== ENCOUNTER → 2022-10-16 | Outpatient (CLI) | payer MEDICARE, MEDICAID | LOC: M PAIN 14:45 | PROVIDERS: ATTEND Nurse Practitioner Family | DX: M54.2 Cervicalgia (principal); M79.18 Myalgia, other site; G89.29 Other chronic pain; K21.9 Gastro-esophageal reflux disease without esophagitis; G43.909 Migraine, unspecified, not intractable, without status migrainosus; E28.2 Polycystic ovarian syndrome; G25.81 Restless legs syndrome; D50.9 Iron deficiency anemia, unspecified; Z88.0 Allergy status to penicillin; Z88.5 Allergy status to narcotic agent; Z88.6 Allergy status to analgesic agent; Z88.8 Allergy status to other drugs, medicaments and biological substances; Z91.09 Other allergy status, other than to drugs and biological substances; Z79.899 Other long term (current) drug therapy ==

== ENCOUNTER → 2022-10-25 | Outpatient (CLI) | payer MEDICARE, MEDICAID ==
[~2022-10-25] MED LIST changes: +FLUT50SP17; -FLUTISP; +PROHANCE 279.3MG/ML 15ML VIAL ONE; +PROHANCE 279.3MG/ML 5ML VIAL ONE
== END ==
LOC: M PLAIMG 11:04
PROVIDERS: ATTEND Psychiatry & Neurology Neurology
DX: G43.901 Migraine, unspecified, not intractable, with status migrainosus (principal)
CPT/HCPCS: 70553; A9576

== ENCOUNTER → 2023-01-31 | Outpatient (CLI) | payer MEDICARE, MEDICAID ==
[~2023-01-31] MED LIST changes: -PROHANCE 279.3MG/ML 15ML VIAL ONE; -PROHANCE 279.3MG/ML 5ML VIAL ONE
== END ==
LOC: M WHC 09:57
PROVIDERS: ATTEND Nurse Practitioner Family
DX: R92.8 Other abnormal and inconclusive findings on diagnostic imaging of breast (principal)
CPT/HCPCS: 76642; 77065; G0279

== ENCOUNTER → 2023-02-14 | Outpatient (CLI) | payer MEDICARE, MEDICAID | LOC: M PLALAB 13:45 | DX: E55.9 Vitamin D deficiency, unspecified (principal) ==

== ENCOUNTER → 2023-02-14 | Outpatient (CLI) | payer MEDICARE, MEDICAID | LOC: M WHC 14:04 | DX: Z13.820 Encounter for screening for osteoporosis (principal); E55.9 Vitamin D deficiency, unspecified; M85.88 Other specified disorders of bone density and structure, other site ==

== ENCOUNTER → 2023-02-14 | Outpatient (CLI) | payer MEDICARE, MEDICAID | LOC: M PLAIMG 14:06 | PROVIDERS: ATTEND Physician Assistant Surgical | DX: M75.111 Incomplete rotator cuff tear or rupture of right shoulder, not specified as traumatic (principal); M19.012 Primary osteoarthritis, left shoulder; S43.432D Superior glenoid labrum lesion of left shoulder, subsequent encounter; E55.9 Vitamin D deficiency, unspecified; M85.88 Other specified disorders of bone density and structure, other site; Z13.820 Encounter for screening for osteoporosis ==

== ENCOUNTER → 2023-02-26 | Outpatient (CLI) | payer MEDICARE, MEDICAID | LOC: M PAIN 14:15 | PROVIDERS: ATTEND Nurse Practitioner Family | DX: M46.1 Sacroiliitis, not elsewhere classified (principal); G89.29 Other chronic pain; K21.9 Gastro-esophageal reflux disease without esophagitis; G43.909 Migraine, unspecified, not intractable, without status migrainosus; E28.2 Polycystic ovarian syndrome; G25.81 Restless legs syndrome; D50.9 Iron deficiency anemia, unspecified; Z88.0 Allergy status to penicillin; Z88.5 Allergy status to narcotic agent; Z88.6 Allergy status to analgesic agent; Z88.8 Allergy status to other drugs, medicaments and biological substances; Z91.09 Other allergy status, other than to drugs and biological substances; Z79.899 Other long term (current) drug therapy ==

== ENCOUNTER → 2023-04-10 | Outpatient (CLI) | payer MEDICARE, MEDICAID ==
[~2023-04-10] MED LIST changes: +ISOVUE-M 300 61% 15ML VIAL As Ordered ONE; +LIDOCAINE 1% SDV 30ML VIAL As Ordered ONE; +ONDANSETRON 4MG ORAL DISINTEGRATING TAB As Ordered ONE; +TRIAMCINOLONE ACETONIDE SUSP 40MG/ML 1ML VIAL As Ordered ONE; +diazePAM 5MG TABLET As Ordered ONE; +oxyCODONE 5MG TAB As Ordered ONE
== END ==
LOC: M PAIN 10:15
PROVIDERS: ATTEND Anesthesiology
DX: M46.1 Sacroiliitis, not elsewhere classified (principal); G89.29 Other chronic pain; K21.9 Gastro-esophageal reflux disease without esophagitis; G43.909 Migraine, unspecified, not intractable, without status migrainosus; E28.2 Polycystic ovarian syndrome; G25.81 Restless legs syndrome; D50.9 Iron deficiency anemia, unspecified; M79.10 Myalgia, unspecified site; Z88.0 Allergy status to penicillin; Z88.5 Allergy status to narcotic agent; Z88.6 Allergy status to analgesic agent; Z88.8 Allergy status to other drugs, medicaments and biological substances; Z91.09 Other allergy status, other than to drugs and biological substances; Z79.899 Other long term (current) drug therapy
CPT/HCPCS: G0260; J0665; J3301; Q9967

== ENCOUNTER → 2023-05-23 | Outpatient (CLI) | payer MEDICARE, MEDICAID ==
[~2023-05-23] MED LIST changes: -ISOVUE-M 300 61% 15ML VIAL As Ordered ONE; -LIDOCAINE 1% SDV 30ML VIAL As Ordered ONE; -ONDANSETRON 4MG ORAL DISINTEGRATING TAB As Ordered ONE; -TRIAMCINOLONE ACETONIDE SUSP 40MG/ML 1ML VIAL As Ordered ONE; -diazePAM 5MG TABLET As Ordered ONE; -oxyCODONE 5MG TAB As Ordered ONE
== END ==
LOC: M PAIN 14:15
PROVIDERS: ATTEND Anesthesiology
DX: M53.3 Sacrococcygeal disorders, not elsewhere classified (principal); M54.50 Low back pain, unspecified; G89.29 Other chronic pain; Z88.0 Allergy status to penicillin; Z88.5 Allergy status to narcotic agent; Z88.6 Allergy status to analgesic agent; Z88.8 Allergy status to other drugs, medicaments and biological substances; Z91.09 Other allergy status, other than to drugs and biological substances; Z79.899 Other long term (current) drug therapy

== ENCOUNTER → 2023-06-22 | Outpatient (CLI) | payer MEDICARE, MEDICAID ==
[~2023-06-22] MED LIST changes: -FLUT50SP17; +FLUTISP
[2023-06-22 12:41] LABS: HEMATOCRIT 42.2 % (36.0-47.0); HEMOGLOBIN 13.9 g/dl (12.0-15.5); MEAN CORPUSCULAR HEMOGLOBIN 30.3 pg (27.0-33.0); MEAN CORPUSCULAR HGB CONC 32.9 g/dl (32.0-36.5); MEAN CORPUSCULAR VOLUME 92.1 fl (80.0-96.0); PLATELET COUNT, AUTOMATED 243 10^3/uL (150-450); RED BLOOD COUNT 4.58 10^6/uL (4.00-5.40); WHITE BLOOD COUNT 6.3 10^3/uL (4.0-10.0)
[2023-06-22 13:00] LABS: ALBUMIN 3.5 G/DL (3.2-5.2); ALKALINE PHOSPHATASE 74 U/L (46-116); ALT/SGPT 24 U/L (7.0-40); AST/SGOT 22 U/L (<34); BILIRUBIN,TOTAL 0.4 MG/DL (0.3-1.2); BLOOD UREA NITROGEN 12 MG/DL (9-23); CALCIUM LEVEL 8.3 MG/DL (8.5-10.1); CARBON DIOXIDE LEVEL 27 MMOL/L (20-31); CHLORIDE LEVEL 104 MMOL/L (98-107); CHOLESTEROL LEVEL 249 MG/DL (<200); CHOLESTEROL RISK RATIO 5.23 (<5); CREATININE FOR GFR 0.67 MG/DL (0.55-1.30); FREE T4 1.22 NG/DL (0.89-1.76); GLOMERULAR FILTRATION RATE > 60.0 (>51); GLUCOSE, FASTING 97 MG/DL (60-100); HDL CHOLESTEROL 47.6 MG/DL (>40); LDL CHOLESTEROL 173.4 MG/DL (<100); NON-HDL-C 201.4 MG/DL; POTASSIUM SERUM 3.2 MMOL/L (3.5-5.1); SODIUM LEVEL 139 MMOL/L (136-145); THYROID STIMULATING HORMONE 1.537 uIU/ML (0.55-4.78); TOTAL 25(OH) VITAMIN D 32.2 NG/ML (20.0-100.0); TOTAL PROTEIN 6.2 G/DL (5.7-8.2); TRIGLYCERIDES LEVEL 140 MG/DL (<150); VITAMIN B12 LEVEL 292 PG/ML (211-911)
[2023-06-22 13:02] LABS: HEMOGLOBIN A1c 5.8 % (4.0-6.0)
[2023-06-22 13:06] LABS: CREATININE, URINE 294.5 MG/DL; MAU/CREAT RATIO 6.7 MCG/MG (0.0-30.0)
== END ==
LOC: M LAB 10:10
PROVIDERS: ATTEND Internal Medicine Hematology
DX: Z13.220 Encounter for screening for lipoid disorders (principal); E55.9 Vitamin D deficiency, unspecified; E11.65 Type 2 diabetes mellitus with hyperglycemia; E28.2 Polycystic ovarian syndrome

== ENCOUNTER → 2023-06-22 | Outpatient (CLI) | payer MEDICARE, MEDICAID ==
[~2023-06-22] MED LIST changes: +FLUT50SP17; -FLUTISP
[2023-06-22 13:04] LABS: HEMOGLOBIN A1c 5.8 % (4.0-6.0)
[2023-06-22 13:34] LABS: ALBUMIN 3.5 G/DL (3.2-5.2); ALKALINE PHOSPHATASE 72 U/L (46-116); ALT/SGPT 24 U/L (7.0-40); AST/SGOT 22 U/L (<34); BILIRUBIN,TOTAL 0.4 MG/DL (0.3-1.2); BLOOD UREA NITROGEN 12 MG/DL (9-23); CALCIUM LEVEL 8.4 MG/DL (8.5-10.1); CARBON DIOXIDE LEVEL 28 MMOL/L (20-31); CHLORIDE LEVEL 107 MMOL/L (98-107); CREATININE FOR GFR 0.68 MG/DL (0.55-1.30); GLOMERULAR FILTRATION RATE > 60.0 (>51); GLUCOSE, FASTING 100 MG/DL (60-100); POTASSIUM SERUM 3.4 MMOL/L (3.5-5.1); SODIUM LEVEL 143 MMOL/L (136-145); TOTAL PROTEIN 6.2 G/DL (5.7-8.2)
== END ==
LOC: M LAB 10:18
PROVIDERS: ATTEND Internal Medicine Endocrinology, Diabetes & Metabolism
DX: E55.9 Vitamin D deficiency, unspecified (principal); E11.65 Type 2 diabetes mellitus with hyperglycemia; E28.2 Polycystic ovarian syndrome

== ENCOUNTER → 2023-07-27 | Outpatient (CLI) | payer MEDICARE, MEDICAID ==
[~2023-07-27] MED LIST changes: -FLUT50SP17; +FLUTISP
== END ==
LOC: M PAIN 11:30
PROVIDERS: ATTEND Nurse Practitioner Family
DX: M53.3 Sacrococcygeal disorders, not elsewhere classified (principal); G89.29 Other chronic pain; Z88.0 Allergy status to penicillin; Z88.5 Allergy status to narcotic agent; Z88.6 Allergy status to analgesic agent; Z88.8 Allergy status to other drugs, medicaments and biological substances; Z91.09 Other allergy status, other than to drugs and biological substances; Z79.85 Long-term (current) use of injectable non-insulin antidiabetic drugs; Z79.899 Other long term (current) drug therapy

== ENCOUNTER → 2023-09-04 | Outpatient (CLI) | payer MEDICARE, MEDICAID ==
[~2023-09-04] MED LIST changes: +ISOVUE-M 300 61% 15ML VIAL As Ordered ONE; +LIDOCAINE 1% SDV 30ML VIAL As Ordered ONE; +ONDANSETRON 4MG ORAL DISINTEGRATING TAB As Ordered ONE; +TRIAMCINOLONE ACETONIDE SUSP 40MG/ML 1ML VIAL As Ordered ONE; +diazePAM 5MG TABLET As Ordered ONE; +oxyCODONE 5MG TAB As Ordered ONE
== END ==
LOC: M PAIN 13:00
PROVIDERS: ATTEND Anesthesiology
DX: M46.1 Sacroiliitis, not elsewhere classified (principal); K21.9 Gastro-esophageal reflux disease without esophagitis; J44.9 Chronic obstructive pulmonary disease, unspecified; G43.709 Chronic migraine without aura, not intractable, without status migrainosus; E66.9 Obesity, unspecified; E78.5 Hyperlipidemia, unspecified; G25.81 Restless legs syndrome; D50.9 Iron deficiency anemia, unspecified; Z79.891 Long term (current) use of opiate analgesic; Z79.899 Other long term (current) drug therapy; Z88.0 Allergy status to penicillin; Z88.5 Allergy status to narcotic agent; Z88.8 Allergy status to other drugs, medicaments and biological substances; Z91.048 Other nonmedicinal substance allergy status; Z88.6 Allergy status to analgesic agent; Z68.36 Body mass index [BMI] 36.0-36.9, adult
CPT/HCPCS: G0260; J0665; J3301; Q9967

== ENCOUNTER → 2023-10-19 | Outpatient (CLI) | payer MEDICARE, MEDICAID ==
[~2023-10-19] MED LIST changes: -ISOVUE-M 300 61% 15ML VIAL As Ordered ONE; -LIDOCAINE 1% SDV 30ML VIAL As Ordered ONE; -ONDANSETRON 4MG ORAL DISINTEGRATING TAB As Ordered ONE; -TRIAMCINOLONE ACETONIDE SUSP 40MG/ML 1ML VIAL As Ordered ONE; -diazePAM 5MG TABLET As Ordered ONE; -oxyCODONE 5MG TAB As Ordered ONE
== END ==
LOC: M PAIN 11:45
PROVIDERS: ATTEND Nurse Practitioner Family
DX: M47.816 Spondylosis without myelopathy or radiculopathy, lumbar region (principal); M79.10 Myalgia, unspecified site; M46.1 Sacroiliitis, not elsewhere classified; G89.29 Other chronic pain; K21.9 Gastro-esophageal reflux disease without esophagitis; G43.709 Chronic migraine without aura, not intractable, without status migrainosus; E66.9 Obesity, unspecified; E78.5 Hyperlipidemia, unspecified; G25.81 Restless legs syndrome; D50.9 Iron deficiency anemia, unspecified; R53.82 Chronic fatigue, unspecified; Z79.891 Long term (current) use of opiate analgesic; Z79.899 Other long term (current) drug therapy; Z88.5 Allergy status to narcotic agent; Z88.0 Allergy status to penicillin; Z88.8 Allergy status to other drugs, medicaments and biological substances; Z91.048 Other nonmedicinal substance allergy status

== ENCOUNTER → 2023-11-19 | Outpatient (CLI) | payer MEDICARE, MEDICAID ==
[2023-11-19 12:21] LABS: BASO % 0.7 % (0.0-1.0); C REACTIVE PROTEIN QUANTITATIV < 0.40 MG/DL (<1.0); EOS # 0.1 10^3/uL (0.0-0.5); EOS % 2.2 % (0.0-3.0); HEMATOCRIT 39.6 % (36.0-47.0); HEMOGLOBIN 12.8 g/dl (12.0-15.5); LYMPH % 33.4 % (24.0-44.0); MEAN CORPUSCULAR HEMOGLOBIN 29.8 pg (27.0-33.0); MEAN CORPUSCULAR HGB CONC 32.3 g/dl (32.0-36.5); MEAN CORPUSCULAR VOLUME 92.1 fl (80.0-96.0); MONO # 0.4 10^3/uL (0.0-0.8); MONO % 7.1 % (2.0-8.0); NEUTROPHILS # 3.3 10^3/uL (1.5-8.5); NEUTROPHILS % 56.3 % (36.0-66.0); PLATELET COUNT, AUTOMATED 255 10^3/uL (150-450); WHITE BLOOD COUNT 5.9 10^3/uL (4.0-10.0)
[2023-11-19 12:23] LABS: ALBUMIN 3.4 G/DL (3.2-5.2); ALKALINE PHOSPHATASE 88 U/L (46-116); ALT/SGPT 34 U/L (7.0-40); AST/SGOT 24 U/L (<34); BILIRUBIN,TOTAL 0.3 MG/DL (0.3-1.2); BLOOD UREA NITROGEN 15 MG/DL (9-23); CALCIUM LEVEL 8.4 MG/DL (8.5-10.1); CARBON DIOXIDE LEVEL 26 MMOL/L (20-31); CHLORIDE LEVEL 108 MMOL/L (98-107); CHOLESTEROL LEVEL 163 MG/DL (<200); CHOLESTEROL RISK RATIO 3.08 (<5); CREATININE FOR GFR 0.76 MG/DL (0.55-1.30); GLOMERULAR FILTRATION RATE > 60.0 (>51); GLUCOSE, FASTING 128 MG/DL (60-100); HDL CHOLESTEROL 52.8 MG/DL (>40); IRON (FE) 50 UG/DL (50-170); NON-HDL-C 110.2 MG/DL; POTASSIUM SERUM 4.2 MMOL/L (3.5-5.1); SODIUM LEVEL 141 MMOL/L (136-145); TRIGLYCERIDES LEVEL 111 MG/DL (<150)
[2023-11-19 12:27] LABS: FERRITIN 36.4 NG/ML (7.3-270.7); THYROID STIMULATING HORMONE 3.529 uIU/ML (0.55-4.78); TOTAL 25(OH) VITAMIN D 27.4 NG/ML (20.0-100.0)
[2023-11-19 12:28] LABS: FREE T4 1.01 NG/DL (0.89-1.76); VITAMIN B12 LEVEL 266 PG/ML (211-911)
[2023-11-19 12:40] LABS: HEMOGLOBIN A1c 6.2 % (4.0-6.0)
== END ==
LOC: M PLALAB 09:17
PROVIDERS: ATTEND Internal Medicine Hematology
DX: D50.0 Iron deficiency anemia secondary to blood loss (chronic) (principal); E66.09 Other obesity due to excess calories; Z79.899 Other long term (current) drug therapy

== ENCOUNTER → 2023-11-19 | Outpatient (CLI) | payer MEDICARE, MEDICAID | LOC: M PLAIMG 07:03 | PROVIDERS: ATTEND Nurse Practitioner Family | DX: M46.1 Sacroiliitis, not elsewhere classified (principal); K57.90 Diverticulosis of intestine, part unspecified, without perforation or abscess without bleeding; M47.816 Spondylosis without myelopathy or radiculopathy, lumbar region; D50.0 Iron deficiency anemia secondary to blood loss (chronic); E66.09 Other obesity due to excess calories; Z79.899 Other long term (current) drug therapy ==

== ENCOUNTER → 2023-12-19 | Outpatient (CLI) | payer MEDICARE, MEDICAID | LOC: M PAIN 16:00 | PROVIDERS: ATTEND Anesthesiology | DX: M53.3 Sacrococcygeal disorders, not elsewhere classified (principal); Z79.891 Long term (current) use of opiate analgesic; M46.1 Sacroiliitis, not elsewhere classified; I10 Essential (primary) hypertension; J44.9 Chronic obstructive pulmonary disease, unspecified; Z79.02 Long term (current) use of antithrombotics/antiplatelets; Z79.51 Long term (current) use of inhaled steroids; Z79.899 Other long term (current) drug therapy; Z88.0 Allergy status to penicillin; Z88.5 Allergy status to narcotic agent; Z91.041 Radiographic dye allergy status ==

== ENCOUNTER → 2024-02-14 | Outpatient (CLI) | payer MEDICARE ==
[~2024-02-14] MED LIST changes: +ISOVUE-M 300 61% 15ML VIAL As Ordered ONE; +LIDOCAINE 1% SDV 30ML VIAL As Ordered ONE; +ONDANSETRON 4MG ORAL DISINTEGRATING TAB As Ordered ONE; +TRIAMCINOLONE ACETONIDE SUSP 40MG/ML 1ML VIAL As Ordered ONE; +diazePAM 5MG TABLET As Ordered ONE; +diphenhydrAMINE 25MG CAP As Ordered ONE; +oxyCODONE 5MG TAB As Ordered ONE
== END ==
LOC: M PAIN 10:00
PROVIDERS: ATTEND Anesthesiology
DX: M46.1 Sacroiliitis, not elsewhere classified (principal); K21.9 Gastro-esophageal reflux disease without esophagitis; J44.9 Chronic obstructive pulmonary disease, unspecified; G43.709 Chronic migraine without aura, not intractable, without status migrainosus; E66.9 Obesity, unspecified; E28.2 Polycystic ovarian syndrome; L68.0 Hirsutism; E78.5 Hyperlipidemia, unspecified; G25.81 Restless legs syndrome; D50.9 Iron deficiency anemia, unspecified; R53.82 Chronic fatigue, unspecified; G89.29 Other chronic pain; M79.18 Myalgia, other site; K59.00 Constipation, unspecified; Z68.39 Body mass index [BMI] 39.0-39.9, adult; Z79.899 Other long term (current) drug therapy; Z79.891 Long term (current) use of opiate analgesic; Z79.1 Long term (current) use of non-steroidal anti-inflammatories (NSAID); Z88.5 Allergy status to narcotic agent; Z88.6 Allergy status to analgesic agent; Z88.0 Allergy status to penicillin; Z91.048 Other nonmedicinal substance allergy status
CPT/HCPCS: G0260; J0665; J3301; Q9967

== ENCOUNTER → 2024-03-26 | Outpatient (CLI) | payer MEDICARE, MEDICAID ==
[~2024-03-26] MED LIST changes: +GABA-1490 PO; -GABA600T4 PO; -ISOVUE-M 300 61% 15ML VIAL As Ordered ONE; -LIDOCAINE 1% SDV 30ML VIAL As Ordered ONE; -ONDANSETRON 4MG ORAL DISINTEGRATING TAB As Ordered ONE; -TRIAMCINOLONE ACETONIDE SUSP 40MG/ML 1ML VIAL As Ordered ONE; -diazePAM 5MG TABLET As Ordered ONE; -diphenhydrAMINE 25MG CAP As Ordered ONE; -oxyCODONE 5MG TAB As Ordered ONE
== END ==
LOC: M WHC 13:08
PROVIDERS: ATTEND Nurse Practitioner Family
DX: R92.8 Other abnormal and inconclusive findings on diagnostic imaging of breast (principal); M53.3 Sacrococcygeal disorders, not elsewhere classified; G89.29 Other chronic pain; Z79.891 Long term (current) use of opiate analgesic; M54.50 Low back pain, unspecified; K21.9 Gastro-esophageal reflux disease without esophagitis; G43.709 Chronic migraine without aura, not intractable, without status migrainosus; Z79.899 Other long term (current) drug therapy; Z88.0 Allergy status to penicillin; Z88.5 Allergy status to narcotic agent; Z88.6 Allergy status to analgesic agent; Z88.8 Allergy status to other drugs, medicaments and biological substances; Z91.048 Other nonmedicinal substance allergy status
CPT/HCPCS: 77066; G0279; G0463

== ENCOUNTER → 2024-03-26 | Outpatient (CLI) | payer MEDICARE, MEDICAID | LOC: M PAIN 17:00 | PROVIDERS: ATTEND Anesthesiology | DX: M53.3 Sacrococcygeal disorders, not elsewhere classified (principal); G89.29 Other chronic pain; Z79.891 Long term (current) use of opiate analgesic; M54.50 Low back pain, unspecified; R10.2 Pelvic and perineal pain; K21.9 Gastro-esophageal reflux disease without esophagitis; G43.709 Chronic migraine without aura, not intractable, without status migrainosus; E66.9 Obesity, unspecified; E28.2 Polycystic ovarian syndrome; L68.0 Hirsutism; E78.5 Hyperlipidemia, unspecified; G25.81 Restless legs syndrome; D50.9 Iron deficiency anemia, unspecified; R53.82 Chronic fatigue, unspecified; M79.18 Myalgia, other site; K59.00 Constipation, unspecified; Z79.899 Other long term (current) drug therapy; Z88.0 Allergy status to penicillin; Z88.5 Allergy status to narcotic agent; Z88.6 Allergy status to analgesic agent; Z88.8 Allergy status to other drugs, medicaments and biological substances; Z91.048 Other nonmedicinal substance allergy status; Z68.39 Body mass index [BMI] 39.0-39.9, adult ==

== ENCOUNTER → 2024-05-19 | Outpatient (CLI) | payer MEDICARE, MEDICAID ==
[2024-05-19 17:18] LABS: BASO % 0.5 % (0.0-1.0); EOS # 0.1 10^3/uL (0.0-0.5); EOS % 1.4 % (0.0-3.0); HEMATOCRIT 42.8 % (36.0-47.0); HEMOGLOBIN 13.8 g/dl (12.0-15.5); LYMPH # 2.2 10^3/uL (1.5-5.0); LYMPH % 27.5 % (24.0-44.0); MEAN CORPUSCULAR HEMOGLOBIN 29.5 pg (27.0-33.0); MEAN CORPUSCULAR HGB CONC 32.2 g/dl (32.0-36.5); MEAN CORPUSCULAR VOLUME 91.5 fl (80.0-96.0); MONO # 0.6 10^3/uL (0.0-0.8); MONO % 7.3 % (2.0-8.0); PLATELET COUNT, AUTOMATED 235 10^3/uL (150-450); RED BLOOD COUNT 4.68 10^6/uL (4.00-5.40); WHITE BLOOD COUNT 7.9 10^3/uL (4.0-10.0)
[2024-05-19 17:35] LABS: HEMOGLOBIN A1c 5.7 % (4.0-6.0)
[2024-05-19 17:40] LABS: CREATININE, URINE 237.7 MG/DL; MAU/CREAT RATIO 1.2 MCG/MG (0.0-30.0)
[2024-05-19 17:41] LABS: C REACTIVE PROTEIN QUANTITATIV < 0.40 MG/DL (<1.0)
[2024-05-19 17:42] LABS: FERRITIN 38.8 NG/ML (7.3-270.7); IRON (FE) 60 UG/DL (50-170); TOTAL 25(OH) VITAMIN D 31.7 NG/ML (20.0-100.0)
[2024-05-19 17:43] LABS: ALBUMIN 3.4 G/DL (3.2-5.2); ALKALINE PHOSPHATASE 91 U/L (35-104); ALT/SGPT 26 U/L (7.0-40); AST/SGOT 20 U/L (<34); BILIRUBIN,TOTAL 0.3 MG/DL (0.3-1.2); BLOOD UREA NITROGEN 10 MG/DL (9-23); CALCIUM LEVEL 8.8 MG/DL (8.5-10.1); CARBON DIOXIDE LEVEL 24 MMOL/L (20-31); CHLORIDE LEVEL 112 MMOL/L (98-107); CHOLESTEROL LEVEL 143 MG/DL (<200); CHOLESTEROL RISK RATIO 3.15 (<5); CREATININE FOR GFR 0.71 MG/DL (0.55-1.30); FREE T4 1.11 NG/DL (0.89-1.76); GLOMERULAR FILTRATION RATE > 60.0 (>51); GLUCOSE, FASTING 95 MG/DL (60-100); HDL CHOLESTEROL 45.3 MG/DL (>40); LDL CHOLESTEROL 74.9 MG/DL (<100); NON-HDL-C 97.7 MG/DL; POTASSIUM SERUM 3.6 MMOL/L (3.5-5.1); SODIUM LEVEL 143 MMOL/L (136-145); THYROID STIMULATING HORMONE 3.364 uIU/ML (0.55-4.78); TOTAL PROTEIN 6.3 G/DL (5.7-8.2); TRIGLYCERIDES LEVEL 114 MG/DL (<150)
[2024-05-19 17:44] LABS: VITAMIN B12 LEVEL 1578 PG/ML (211-911)
== END ==
LOC: M PLALAB 13:53
PROVIDERS: ATTEND Internal Medicine Hematology
DX: D50.0 Iron deficiency anemia secondary to blood loss (chronic) (principal); E11.9 Type 2 diabetes mellitus without complications; Z79.899 Other long term (current) drug therapy

== ENCOUNTER → 2024-05-28 | Outpatient (CLI) | payer MEDICARE, MEDICAID | LOC: M PAIN 11:00 | PROVIDERS: ATTEND Anesthesiology | DX: M46.1 Sacroiliitis, not elsewhere classified (principal); M53.3 Sacrococcygeal disorders, not elsewhere classified; M54.50 Low back pain, unspecified; K21.9 Gastro-esophageal reflux disease without esophagitis; J44.9 Chronic obstructive pulmonary disease, unspecified; G43.709 Chronic migraine without aura, not intractable, without status migrainosus; E66.9 Obesity, unspecified; E78.5 Hyperlipidemia, unspecified; G25.81 Restless legs syndrome; D50.9 Iron deficiency anemia, unspecified; M79.18 Myalgia, other site; G89.11 Acute pain due to trauma; Z79.891 Long term (current) use of opiate analgesic; Z79.899 Other long term (current) drug therapy; Z88.5 Allergy status to narcotic agent; Z88.6 Allergy status to analgesic agent; Z88.0 Allergy status to penicillin; Z88.8 Allergy status to other drugs, medicaments and biological substances; Z91.048 Other nonmedicinal substance allergy status ==

== ENCOUNTER → 2024-06-05 | Outpatient (CLI) | payer MEDICARE, MEDICAID ==
[~2024-06-05] MED LIST changes: +ISOVUE-M 300 61% 15ML VIAL As Ordered ONE; +LIDOCAINE 1% SDV 30ML VIAL As Ordered ONE; +ONDANSETRON 4MG ORAL DISINTEGRATING TAB As Ordered ONE; +TRIAMCINOLONE ACETONIDE SUSP 40MG/ML 1ML VIAL As Ordered ONE; +diazePAM 5MG TABLET As Ordered ONE; +diphenhydrAMINE 25MG CAP As Ordered ONE; +oxyCODONE 5MG TAB As Ordered ONE
== END ==
LOC: M PAIN 12:45
PROVIDERS: ATTEND Anesthesiology
DX: M53.3 Sacrococcygeal disorders, not elsewhere classified (principal); G89.29 Other chronic pain; M54.50 Low back pain, unspecified; K21.9 Gastro-esophageal reflux disease without esophagitis; G43.709 Chronic migraine without aura, not intractable, without status migrainosus; E66.9 Obesity, unspecified; E28.2 Polycystic ovarian syndrome; E78.5 Hyperlipidemia, unspecified; G25.81 Restless legs syndrome; D50.9 Iron deficiency anemia, unspecified; R53.82 Chronic fatigue, unspecified; M79.18 Myalgia, other site; K59.00 Constipation, unspecified; Z79.891 Long term (current) use of opiate analgesic; Z79.899 Other long term (current) drug therapy; Z68.39 Body mass index [BMI] 39.0-39.9, adult; Z88.5 Allergy status to narcotic agent; Z88.6 Allergy status to analgesic agent; Z88.8 Allergy status to other drugs, medicaments and biological substances; Z91.048 Other nonmedicinal substance allergy status
CPT/HCPCS: G0260; J0665; J3301; Q9967

== ENCOUNTER → 2024-07-29 | Outpatient (CLI) | payer MEDICARE, MEDICAID ==
[~2024-07-29] MED LIST changes: -ISOVUE-M 300 61% 15ML VIAL As Ordered ONE; -LIDOCAINE 1% SDV 30ML VIAL As Ordered ONE; -ONDANSETRON 4MG ORAL DISINTEGRATING TAB As Ordered ONE; -TRIAMCINOLONE ACETONIDE SUSP 40MG/ML 1ML VIAL As Ordered ONE; -diazePAM 5MG TABLET As Ordered ONE; -diphenhydrAMINE 25MG CAP As Ordered ONE; -oxyCODONE 5MG TAB As Ordered ONE
== END ==
LOC: M PAIN 16:00
PROVIDERS: ATTEND Anesthesiology
DX: M47.812 Spondylosis without myelopathy or radiculopathy, cervical region (principal); Z79.891 Long term (current) use of opiate analgesic; K21.9 Gastro-esophageal reflux disease without esophagitis; G43.709 Chronic migraine without aura, not intractable, without status migrainosus; E66.9 Obesity, unspecified; E78.5 Hyperlipidemia, unspecified; G25.81 Restless legs syndrome; Z88.0 Allergy status to penicillin; Z88.5 Allergy status to narcotic agent; Z88.6 Allergy status to analgesic agent; Z88.8 Allergy status to other drugs, medicaments and biological substances; Z91.048 Other nonmedicinal substance allergy status

== ENCOUNTER → 2024-08-27 | Outpatient (CLI) | payer MEDICARE, MEDICAID ==
[~2024-08-27] MED LIST changes: +ALAVTAB PO; +ATOR80TA59 PO; +BACL10TA2 PO; +DICY-61 PO; +DIHY1INJ4 IM; +HYDR4TAB PO; +KETO2CR; +MAG100TA PO; +METH-1164 PO; +OXYB10TA23 PO; +OXYC10TA12 PO; +PRAM0.252 PO; +PRAM0.5T4 PO; +PREG150C2 PO; +SEMA1PEN2; +SENN1TAB96 PO; +SUCR1TAB56 PO; +TRIA1CR80; +UBRO50TA PO; +VITA100065 PO; +VITA200016 PO; -[UNRECOGNIZED DRUG - CODE] IM; +[UNRECOGNIZED DRUG - CODE] PO
== END ==
LOC: M PAIN 13:00
PROVIDERS: ATTEND Anesthesiology
DX: M47.812 Spondylosis without myelopathy or radiculopathy, cervical region (principal); Z79.891 Long term (current) use of opiate analgesic; M47.816 Spondylosis without myelopathy or radiculopathy, lumbar region; M54.50 Low back pain, unspecified; G89.29 Other chronic pain; K21.9 Gastro-esophageal reflux disease without esophagitis; J44.9 Chronic obstructive pulmonary disease, unspecified; G43.709 Chronic migraine without aura, not intractable, without status migrainosus; E78.5 Hyperlipidemia, unspecified; Z79.1 Long term (current) use of non-steroidal anti-inflammatories (NSAID); Z79.899 Other long term (current) drug therapy; Z88.5 Allergy status to narcotic agent; Z88.6 Allergy status to analgesic agent; Z88.0 Allergy status to penicillin; Z88.8 Allergy status to other drugs, medicaments and biological substances; Z91.048 Other nonmedicinal substance allergy status

== ENCOUNTER → 2024-09-25 | Outpatient (CLI) | payer MEDICARE, MEDICAID ==
[~2024-09-25] MED LIST changes: -ALAVTAB PO; -ATOR80TA59 PO; -BACL10TA2 PO; -DICY-61 PO; -HYDR4TAB PO; +ISOVUE-300 61% 100ML VIAL As Ordered ONE; -KETO2CR; +LIDOCAINE 1% MDV 20ML VIAL As Ordered ONE; -MAG100TA PO; -METH-1164 PO; -OXYB10TA23 PO; -OXYC10TA12 PO; -PRAM0.252 PO; -PRAM0.5T4 PO; -PREG150C2 PO; -SEMA1PEN2; -SENN1TAB96 PO; -SUCR1TAB56 PO; -TRIA1CR80; -UBRO50TA PO; -VITA100065 PO; -VITA200016 PO; -[UNRECOGNIZED DRUG - CODE] PO; +methylPREDNISolone SUSP 40MG/ML 1ML VIAL (DEPO MEDROL) As Ordered ONE
== END ==
LOC: M RAD 13:29
PROVIDERS: ATTEND Physician Assistant Surgical
DX: M19.012 Primary osteoarthritis, left shoulder (principal)
CPT/HCPCS: 20605; 77002; J1010; Q9967

== ENCOUNTER → 2024-10-09 | Outpatient (CLI) | payer MEDICARE, MEDICAID ==
[~2024-10-09] MED LIST changes: +ALAVTAB PO; +ATOR80TA59 PO; +BACL10TA2 PO; +DICY-61 PO; +HYDR4TAB PO; -ISOVUE-300 61% 100ML VIAL As Ordered ONE; +KETO2CR; -LIDOCAINE 1% MDV 20ML VIAL As Ordered ONE; +MAG100TA PO; +METH-1164 PO; +OXYB10TA23 PO; +OXYC10TA12 PO; +PRAM0.252 PO; +PRAM0.5T4 PO; +PREG150C2 PO; +SEMA1PEN2; +SENN1TAB96 PO; +SUCR1TAB56 PO; +TRIA1CR80; +UBRO50TA PO; +VITA100065 PO; +VITA200016 PO; +[UNRECOGNIZED DRUG - CODE] PO; -methylPREDNISolone SUSP 40MG/ML 1ML VIAL (DEPO MEDROL) As Ordered ONE
== END ==
LOC: M RAD 09:19
PROVIDERS: ATTEND Internal Medicine Hematology
DX: D50.0 Iron deficiency anemia secondary to blood loss (chronic) (principal); K76.0 Fatty (change of) liver, not elsewhere classified

== ENCOUNTER 2024-11-12 11:55 | Day surgery (SDC) | payer MEDICARE, MEDICAID ==
[~2024-11-12] VITALS: Ht 152.4 cm; Wt 100.7 kg
[~2024-11-12 11:55] MED LIST changes: +LIDOCAINE 2% 100MG/5ML SDV (FOR ANES.) As Ordered ONE; +METH-1165 PO; -PHEN-239 PO; +PHEN37.511 PO; +SEMA3TAB4 PO; +SEMA7TAB2 PO; +TOPI-14 PO; -TOPI200T7 PO; +propofoL 200 MG/20 ML VIAL As Ordered ONE
[2024-11-12] MEDS ORDERED: fentaNYL 100 MCG/2 ML INJECTION As Ordered ONE (12:52)
[2024-11-12 13:32] VITALS: TEMP 96.7
[2024-11-12 13:46] VITALS: BP 139/75; O2SAT 98
== END 2024-11-12 13:53 | disposition home or self-care (01) ==
LOC: M OPP 11:55
PROVIDERS: ATTEND Internal Medicine Gastroenterology
DX: R10.13 Epigastric pain (principal); D50.9 Iron deficiency anemia, unspecified; Z88.0 Allergy status to penicillin; Z88.5 Allergy status to narcotic agent; Z88.6 Allergy status to analgesic agent; Z88.8 Allergy status to other drugs, medicaments and biological substances; Z91.040 Latex allergy status; J44.9 Chronic obstructive pulmonary disease, unspecified; Z79.51 Long term (current) use of inhaled steroids; Z79.891 Long term (current) use of opiate analgesic; Z79.899 Other long term (current) drug therapy
CPT/HCPCS: 43239; 88305; J3010

== ENCOUNTER → 2025-03-12 | Outpatient (REF) | payer MEDICARE, MEDICAID ==
[~2025-03-12] MED LIST changes: -LIDOCAINE 2% 100MG/5ML SDV (FOR ANES.) As Ordered ONE; -propofoL 200 MG/20 ML VIAL As Ordered ONE
== END ==
LOC: M SFHCPLAZ 15:44
PROVIDERS: ATTEND Family Medicine
DX: Z53.9 Procedure and treatment not carried out, unspecified reason (principal)

== ENCOUNTER → 2025-03-13 | Outpatient (CLI) | payer MEDICARE, MEDICAID ==
[~2025-03-13] MED LIST changes: +ISOVUE-300 61% 100 ML VIAL As Ordered ONE; +LIDOCAINE 1% MDV 20 ML VIAL As Ordered ONE; +methylPREDNISolone SUSP 40 MG/ML 1 ML VIAL As Ordered ONE
== END ==
LOC: M RAD 14:31
PROVIDERS: ATTEND Physician Assistant Surgical
DX: M19.012 Primary osteoarthritis, left shoulder (principal); R68.89 Other general symptoms and signs; E11.9 Type 2 diabetes mellitus without complications; E78.2 Mixed hyperlipidemia
CPT/HCPCS: 20610; 36415; 77002; 80061; 83036; 84439; 84443; 84481; 85027; 86038; 86200; 86431; J1010; Q9967

== ENCOUNTER → 2025-03-13 | Outpatient (CLI) | payer MEDICARE, MEDICAID ==
[~2025-03-13] MED LIST changes: -ISOVUE-300 61% 100 ML VIAL As Ordered ONE; -LIDOCAINE 1% MDV 20 ML VIAL As Ordered ONE; -methylPREDNISolone SUSP 40 MG/ML 1 ML VIAL As Ordered ONE
[2025-03-13 15:52] LABS: PLATELET COUNT, AUTOMATED 236 10^3/uL (150-450)
[2025-03-13 16:19] LABS: CHOLESTEROL LEVEL 172 MG/DL (<200); CHOLESTEROL RISK RATIO 3.92 (<5); LDL CHOLESTEROL 82.0 MG/DL (<100); NON-HDL-C 128.2 MG/DL; TRIGLYCERIDES LEVEL 231 MG/DL (<150)
[2025-03-13 16:21] LABS: RHEUMATOID FACTOR QUANT < 3.5 IU/ML (<14)
[2025-03-13 16:22] LABS: FREE T4 1.21 NG/DL (0.89-1.76)
[2025-03-13 16:33] LABS: ESTIMATED AVERAGE GLUCOSE 154.0 MG/DL (60-110)
== END ==
LOC: M LAB 14:45
PROVIDERS: ATTEND Family Medicine
DX: R68.89 Other general symptoms and signs (principal); E11.9 Type 2 diabetes mellitus without complications; E78.2 Mixed hyperlipidemia

== ENCOUNTER → 2025-03-19 | Outpatient (REF) | payer MEDICARE, MEDICAID | LOC: M SFHCPLAZ 16:46 | PROVIDERS: ATTEND Family Medicine | DX: Z53.9 Procedure and treatment not carried out, unspecified reason (principal) ==

== ENCOUNTER → 2025-04-27 | Outpatient (CLI) | payer MEDICARE, MEDICAID ==
[2025-04-27 12:41] LABS: LUTEINIZING HORMONE 19.4 mIU/ML
== END ==
LOC: M LAB 11:04
PROVIDERS: ATTEND Family Medicine
DX: R68.89 Other general symptoms and signs (principal); E11.65 Type 2 diabetes mellitus with hyperglycemia

== ENCOUNTER → 2025-04-27 | Outpatient (CLI) | payer MEDICARE, MEDICAID ==
[2025-04-27 12:42] LABS: ALT/SGPT 50 U/L (7.0-40); AST/SGOT 37 U/L (<34); CALCIUM LEVEL 8.5 MG/DL (8.5-10.1); CARBON DIOXIDE LEVEL 24 MMOL/L (20-31); CHLORIDE LEVEL 109 MMOL/L (98-107); CREATININE FOR GFR 0.77 MG/DL (0.55-1.30); GLOMERULAR FILTRATION RATE > 90.0 (>51); POTASSIUM SERUM 3.9 MMOL/L (3.5-5.1); SODIUM LEVEL 143 MMOL/L (136-145)
[2025-04-27 13:24] LABS: ESTIMATED AVERAGE GLUCOSE 160.0 MG/DL (60-110)
== END ==
LOC: M LAB 11:09
PROVIDERS: ATTEND Nurse Practitioner Family
DX: E11.65 Type 2 diabetes mellitus with hyperglycemia (principal)

== ENCOUNTER → 2025-05-27 | Outpatient (CLI) | payer MEDICARE, MEDICAID ==
[~2025-05-27] MED LIST changes: +ISOVUE-370 76% 100 ML VIAL As Ordered ONE
== END ==
LOC: M RAD 14:04
PROVIDERS: ATTEND Family Medicine
DX: R10.9 Unspecified abdominal pain (principal); N20.0 Calculus of kidney
CPT/HCPCS: 74177; Q9967